=== PATIENT | male | born 1950 | race African-American/Black ===

== ENCOUNTER 2016-05-06 14:27 | Emergency (ER) | payer MEDICARE, OTHER ==
[~2016-05-06] VITALS: Ht 170.2 cm; Wt 70.0 kg
[~2016-05-06 14:27] MED LIST: ALPR2TAB3 GTB; CLON-379 GTB; GABA800T GTB; HYDR-3671 GTB; HYDR-762 GTB; LEVO500T72 GTB; ONDA4TAB95 GTB; PANT40TA4 GTB; TIOT18CA INHALATION; ZOLP5TAB PO
[2016-05-06 14:36] VITALS: Ht 170.2 cm; Wt 70.0 kg
[2016-05-06] MEDS ORDERED: SOD CHLORIDE 0.9% 1,000 ML IV STA (16:26)
--- NOTE | 2016-05-06 17:12 | RADRPT ---
PROCEDURE: XR Chest. CLINICAL INDICATION: Abdominal pain. TECHNIQUE: Single frontal radiograph. COMPARISON: 02/15/2016. FINDINGS: There are multiple old right-sided rib fractures. There is generalized volume loss with pleural thi ckening and diffuse nonspecific interstitial opacities. Right lung is clear. Heart size is within normal limits. There are aortic calcifications. No infradiaphragmatic free air. IMPRESSION: Generalized atelectasis of the right hemithorax with diffuse lower lobe predominant interstitial opa cities and ipsilateral pleural thickening. Left lung is clear. Multiple old right-sided rib fractures RPTAT: EE .Benigno Ferrell MD, MD Date Time Electronically viewed and signed by .Benigno Ferrell MD, MD on 05/06/2016 17:16 .C/
[2016-05-06 17:23] LABS: BASOPHILS % 0.2 % (0.0-2.0); EOSINOPHILS # 0.1 10^3/ul (0.0-0.5); EOSINOPHILS % 0.7 % (0.0-7.0); HEMOGLOBIN 9.6 g/dl (14.0-18.0); LYMPHOCYTES # 0.8 10^3/ul (0.8-2.9); LYMPHOCYTES % 5.7 % (15.0-51.0); MEAN CORPUSCULAR HEMOGLOBIN 23.5 pg (29.0-33.0); MEAN CORPUSCULAR HGB CONC 31.1 g/dl (32.0-37.0); MEAN CORPUSCULAR VOLUME 75.5 fl (82.0-101.0); MEAN PLATELET VOLUME 8.4 fl (7.4-10.4); MONOCYTE # 1.1 10^3/ul (0.3-0.9); MONOCYTES % 8.5 % (0.0-11.0); NEUTROPHIL # 11.5 10^3/ul (1.6-7.5); NEUTROPHILS % 84.9 % (39.0-77.0); PLATELET COUNT 268 10^3/UL (140-440); RED BLOOD COUNT 4.11 10^6/ul (4.70-6.10); UNCORRECTED WBC 13.5 10^3/ul (4.8-10.8); WHITE BLOOD COUNT 13.5 10^3/ul (4.8-10.8)
[2016-05-06 17:28] LABS: ADD UMIC NO; URINE BILIRUBIN (Dip) NEGATIVE (NEGATIVE); URINE BLOOD (Dip) NEGATIVE (NEGATIVE); URINE COLOR LT. YELLOW (YELLOW); URINE GLUCOSE (Dip) NEGATIVE (NEGATIVE); URINE KETONES (Dip) NEGATIVE (NEGATIVE); URINE LEUKOCYTE ESTERASE (Dip) NEGATIVE (NEGATIVE); URINE NITRITE (Dip) NEGATIVE (NEGATIVE); URINE TOTAL PROTEIN (Dip) NEGATIVE (NEGATIVE); URINE UROBILINOGEN (Dip) 0.2 E.U./dL (0.1-1.0)
[2016-05-06 17:41] LABS: CONDITION 1; LH ANALYZER COMMENTS 1
[2016-05-06 17:42] LABS: ALBUMIN 3.4 g/dl (3.3-4.9)
[2016-05-06 17:44] LABS: CREATININE 0.85 mg/dl (0.61-1.24)
[2016-05-06 17:45] LABS: ALBUMIN/GLOBULIN RATIO 0.91; BILIRUBIN,INDIRECT 0.3 mg/dl (0-1.1); BILIRUBIN,TOTAL 0.3 mg/dl (0.2-1.3); CALCIUM 8.7 mg/dl (8.4-10.2); TOTAL PROTEIN 7.1 g/dl (6.1-8.1)
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
[2016-05-06 19:29] VITALS: BP 148/75; PULSE 99; RESP 18; TEMP 98
== END 2016-05-06 21:25 | disposition home or self-care (01) ==
LOC: E/R 14:27
DX: J95.09 Other tracheostomy complication (principal); R53.1 Weakness; J44.9 Chronic obstructive pulmonary disease, unspecified; Z87.891 Personal history of nicotine dependence
CPT/HCPCS: 71010; 80053; 81003; 85025; J7030

== ENCOUNTER 2016-05-13 16:51 | Emergency (ER) | payer MEDICARE, OTHER ==
[~2016-05-13] VITALS: Wt 79.0 kg
[2016-05-13 16:55] VITALS: Wt 79.0 kg
[2016-05-13] MEDS ORDERED: LIDOCAINE 2% JELLY 30 ML TOP STA (18:06)
--- NOTE | 2016-05-13 19:01 | RADRPT ---
PROCEDURE: XR Chest. CLINICAL INDICATION: Tracheostomy tube placement. TECHNIQUE: Single frontal view of the chest was obtained COMPARISON: None FINDINGS: Tracheostomy tube at the midline, new over interval. Cardiomegaly. Right lung air fibrotic changes with pleural effusion and pleural thickening, without significant change booth attendant interval. Left lung remains clear. There is no pneumothorax. New radiopaque material over the left upper quadrant. IMPRESSION: 1. New tracheostomy tube at the midline. 2. Cardiomegaly, and no significant change in right lung air fibrotic changes, with pleural thicken ing and pleural effusion. RPTAT: [facility] Physician Bella Date Time Electronically viewed and signed by Physician Bella on 05/13/2016 19:00 RS/
--- NOTE | 2016-05-13 19:38 | ERD ---
ER Documentation Chief Complaint Date/Time DATE: 05/13/16 TIME: 19:32 Chief Complaint TRACH FELL OUT SENT FOR REINSERTION HPI This 65-year-old male is brought in by his daughter for a tracheostomy reinsertion is been out for 3 days. Patient is having extra secretions and through the trach there is suctionable but not so much with the trach. He denies any other acute symptoms and denies shortness of breath, fevers chills or new cough. ROS All systems reviewed and are negative except as per history of present illness. Medications Home Meds Active Scripts Zolpidem Tartrate (Ambien Nicolás) 5 Mg Tablet, 5 MG PO QHS Y for SLEEP for 30 Days , #30 TAB Prov:GENESIS ZHAO MD 02/20/16 Reported Medications Tiotropium [place]* (Spiriva*) 18 Mcg Cap.w.dev, 1 CAP INHALATION DAILY, #30 CAP 12/26/15 Alprazolam* (Alprazolam* ER) 2 Mg Tab.sr.24h, 2 MG GTB TID, TAB.SA 12/26/15 Ondansetron Hcl* (Ondansetron Hcl*) 4 Mg Tablet, 4 MG GTB DAILY Y for NAUSEA AND OR VOMITING, TAB 12/26/15 Hydralazine Hcl* (Hydralazine Hcl*) 25 Mg Tab, 25 MG GTB Q6 Y for PRN, #120 TAB 12/26/15 Pantoprazole* (Pantoprazole*) 40 Mg Tablet.dr, 40 MG GTB DAILY, TAB 12/26/15 Clonidine Hcl* (Clonidine Hcl*) 0.1 Mg Tab, 0.1 MG GTB DAILY, TAB 12/26/15 Hydrocodone Bit-Acetaminophen* ([place]*) 10-325 Mg Tablet, 1 TAB GTB Q8 Y for PAIN, TAB 06/16/15 Gabapentin* (Neurontin*) 800 Mg Tablet, 800 MG GTB TID, TAB 02/09/15 Discontinued Scripts Levofloxacin* (Levaquin*) 500 Mg Tablet, 500 MG GTB DAILY for 3 Days, TAB Prov:GENESIS ZHAO MD 02/20/16 Allergies Allergies: Coded Allergies: No Known Drug Allergies (Verified Allergy, Unknown, 12/26/15) PMhx/Soc History of Surgery: Yes (lung, abdominal, R ankle angel placement) Anesthesia Reaction: No Hx Neurological Disorder: No Hx Respiratory Disorders: Yes (COPd) Hx Cardiac Disorders: No Hx Psychiatric Problems: No Hx Miscellaneous Medical Probl: Yes (pls see EMR) Hx Alcohol Use: Yes Hx Substance Use: No Hx Tobacco Use: Yes Smoking Status: Former smoker Physical Exam Vitals Vital Signs Date Time Temp Pulse Resp B/P Pulse Ox O2 Delivery O2 Flow Rate FiO2 05/13/16 19:28 21 05/13/16 16:55 98.0 117 18 145/74 93 Physical Exam Const: [] No distress Eyes: Normal Conjunctiva ENT: Normal External Ears, Nose and Mouth. Neck: Full range of motion..~Tracheostomy stoma apparently patent with no surrounding signs of infection. Resp: Clear to auscultation bilaterally Cardio: Regular rate and rhythm, no murmurs Ext: No cyanosis, or edema Neur: Awake and alert and oriented 3, no focal deficits Psych: Normal Mood and Affect Results 24 hrs Current Medications Medications (Trade) Dose Ordered Sig/Jacquelyn Route PRN Reason Start Time Stop Time Status Last Admin Dose Admin Lidocaine (Xylocaine) 1 applic TID STAT TOP 05/13/16 18:06 05/13/16 18:07 DC Procedures/MDM Tracheostomy and insertion of the closing stoma. Insertion was easy and proceeded with no complications. Patient was then deep suction through his stoma site. Chest x-ray was performed to confirm placement and showed no acute changes in his parenchymal tissue. First the patient had refused the tracheostomy was not going to put it in. I then spoke with Dr. Tony Jean-Baptiste who says that he changes his mind constantly. He went back to the room in asked the patient if he would allow us to change it and he said that he would now. She was cooperative while I placed the tracheostomy. I am advising follow -up with Tere Jean-Baptiste in the next 2 days. Tracheostomy insertion note: With respiratory therapy at the bedside I inserted a Portex #7 cuffed tracheostomy tube through the previous stoma site. Lidocaine jelly was applied to the tracheostomy. Inserted smoothly with absolutely no resistance. It fit well. He was then fastened into place and the patient was deep suctioned. Patient tolerated procedure well there were no complications. No bleeding. Patient was saturating 100% after the procedure and was breathing well. Chest x-ray interpretation: Tracheostomy in place, I see no acute changes, no pneumothorax, no infiltrate, no pulmonary edema, patient's x-ray is very similar to previous x-ray, no fractures Departure Diagnosis: Primary Impression: Encounter for tracheostomy tube change Condition: Stable Patient Instructions: Tracheostomy Care Additional Instructions: Call your primary care doctor TOMORROW for an appointment during the next 1-2 days.See the doctor sooner or return here if your condition worsens before your appointment time. BARBRA CANALES DO May 13, 2016 19:38
== END 2016-05-13 19:15 | disposition home or self-care (01) ==
LOC: E/R 16:51
DX: Z43.0 Encounter for attention to tracheostomy (principal); J44.9 Chronic obstructive pulmonary disease, unspecified; Z87.891 Personal history of nicotine dependence
CPT/HCPCS: 71010

== ENCOUNTER 2016-11-21 19:37 | Emergency (ER) | payer MEDICARE, OTHER ==
[~2016-11-21] VITALS: Wt 89.5 kg
[~2016-11-21 19:37] MED LIST changes: -LEVO500T72 GTB
== END 2016-11-21 21:05 | disposition left against medical advice (07) ==
LOC: E/R 19:37
DX: Z53.21 Procedure and treatment not carried out due to patient leaving prior to being seen by health care provider (principal)

== ENCOUNTER 2017-08-17 03:09 | Inpatient (IN) | END 2017-08-21 13:33 | disposition home or self-care (01) | DRG 189 ==

== ENCOUNTER 2018-07-17 15:57 | Inpatient (IN) | payer MEDICARE, OTHER ==
[~2018-07-17] VITALS: Ht 177.8 cm; Wt 69.3 kg
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
[2018-07-17] MEDS ORDERED: ALBUTEROL 0.5% (NEB) 2.5 MG/0.5 ML AMP INH STA (16:07)
[2018-07-17] MEDS ORDERED: SOD CHLORIDE 0.9% 1,000 ML IV STA (16:07)
[2018-07-17] MEDS ORDERED: METHYLPREDNISOLONE 125 MG INJ IV STA (16:07)
[2018-07-17] MEDS ORDERED: HYDR-3980 GTB (16:55)
[2018-07-17] MEDS ORDERED: ALPR2TAB GTB (16:56)
[2018-07-17] MEDS ORDERED: GABA-528 GTB (16:56)
[2018-07-17] MEDS ORDERED: CLON-379 GTB (16:58)
[2018-07-17] MEDS ORDERED: HYDR-3671 GTB (16:58)
[2018-07-17] MEDS ORDERED: PANT40TA4 GTB (16:59)
[2018-07-17] MEDS ORDERED: PIPER-TAZO 3.375 GM IV (PMX) 100 ML IVPB ONE (17:00)
[2018-07-17] MEDS ORDERED: VANCOMYCIN 1 GM (PMX) 250 ML IVPB ONE (17:00)
[2018-07-17] MEDS ORDERED: CEFTRIAXONE 1 GM/50 ML (PMX) 50 ML IVPB ONE (17:00)
[2018-07-17] MEDS ORDERED: SOD CHLORIDE 0.9% 1,000 ML IV ONE (18:30)
[2018-07-17] MEDS ORDERED: NACL 0.9% 3 ML SYG IV SCH (19:00)
[2018-07-17] MEDS ORDERED: ONDANSETRON 4 MG INJ IV PRN (19:00)
[2018-07-17] MEDS ORDERED: NITROGLYCERIN (SL) 0.4 MG TAB SL PRN (19:00)
[2018-07-17] MEDS ORDERED: hydrALAzine 20 MG INJ IV PRN (19:00)
[2018-07-17] MEDS ORDERED: ALBUTEROL/IPRATROPIUM (NEB) 3 ML AMP HHN PRN (19:00)
[2018-07-17] MEDS ORDERED: DOCUSATE SODIUM 100 MG CAP PO PRN (19:00)
[2018-07-17] MEDS ORDERED: MAGNESIUM HYDROXIDE 30ML CUP PO PRN (19:00)
[2018-07-17] MEDS ORDERED: ACETAMINOPHEN 325 MG TAB PO PRN (19:00)
[2018-07-17] MEDS ORDERED: HYDROCODONE/APAP (5/325) TAB PO PRN (19:00)
[2018-07-17] MEDS ORDERED: VANCOMYCIN IV PER PHARMACY XX SCH (19:00)
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
[2018-07-17 21:30] VITALS: BP 99/57; PULSE 95; RESP 22
[2018-07-17 22:00] VITALS: BP 140/77; RESP 28
[2018-07-17 22:30] VITALS: BP 124/67; RESP 27
[2018-07-17] MEDS ORDERED: ACETYLCYSTEINE 20% 4 ML VIAL NEB PRN (23:30)
[2018-07-18] VITALS (24 sets, daily range): BP systolic 99–159; BP diastolic 59–143; PULSE 67–108; RESP 13–30
[2018-07-18] MEDS: PIPER-TAZO 3.375 GM IV (PMX) 100 ML IVPB SCH ×5 (00:41→23:55)
[2018-07-18] MEDS ORDERED: PENDING SANTYL ORDER FOR WOUND CARE XX PRN (01:00)
[2018-07-18] MEDS: morphine 2 MG INJ IV PRN ×2 (01:45→05:43)
[2018-07-18] MEDS: LORAZEPAM 2 MG INJ IV PRN (01:46)
[2018-07-18] MEDS: VANCOMYCIN HCL 1.25 GM in SOD CHLORIDE 0.9% 250 ML IVPB SCH ×2 (05:43→17:41)
[2018-07-18] MEDS: PANTOPRAZOLE (EC) 40 MG TAB PO SCH (07:05)
--- NOTE | 2018-07-18 08:19 | PN ---
Date/Time of Note Date/Time of Note DATE: 07/18/18 TIME: 08:16 Assessment/Plan VTE Prophylaxis SCD applied (from Nsg): Yes Pharmacological prophylaxis: NA/contraindicated Pharm contraindication: bleeding Lines/Catheters IV Catheter Type (from Nrsg): Peripheral IV Urinary Cath still in place: No Assessment/Plan Hospital Course S: Pt had some bleeding again from trach site last night. No fevers. O: VS- see below PHYSICAL EXAMINATION: GENERAL: lying in bed, in no acute distress. HEENT: Pupils are equal, round and reactive to light. Extraocular muscles are intact. NECK: Supple, some dried blood around trach RESPIRATORY: Slightly decreased breath sounds bilaterally with some mild wheezes. CARDIOVASCULAR: S1, S2 heard, No rubs or gallops. ABDOMEN: Soft, nontender, nondistended. Normal bowel sounds. No rebound or guarding. MUSCULOSKELETAL: No lower extremity edema bilaterally. NEUROLOGIC: Unable to fully assess given the patient's lethargy at this time. ASSESSMENT AND PLAN: 67-year-old male coming in with mild hypoxia, shortness of breath, bleeding around the tracheostomy site with signs of right lower lobe pneumonia, coming here from SNF. 1. Shortness of breath and mild hypoxic- + right lower lobe infiltrate, likely pneumonia. - continue broad spectrum antibiotics. - Follow up final culture results, and recs from pulmonary consult for ventilator management. He does have a tracheostomy. - low dose IV fluids - Tylenol p.r.n. pain and fevers. - monitor bleeding from trach site - holding all anticoagulants 2. History of cystic lung disease. Again, see #1. - Continue current medications including antibiotics, DuoNeb p.r.n. 3. Chronic obstructive pulmonary disease. Again, see #1 and 2. 4. History of anemia. Hemoglobin is stable. - Continue to monitor for now. 5. History of hypertension. Blood pressure is stable. - Continue current medications including hydralazine p.r.n. 6. Deep venous thrombosis prophylaxis- SCDs. Critical care time spent today = 45 minutes. Result Diagram: 07/18/18 0516 07/18/18 0516 Results 24hrs Laboratory Tests Test 07/17/18 16:44 07/18/18 00:30 07/18/18 05:15 07/18/18 05:16 White Blood 11.1 H 6.4 # Count Red Blood Count 3.66 L 4.21 L Hemoglobin 8.7 L 9.8 L Hematocrit 29.7 L 35.4 L Mean Corpuscular 81.1 L 84.1 Volume Mean Corpuscular 23.8 L 23.3 L Hemoglobin Mean Corpuscular 29.3 L 27.7 L Hemoglobin Roseann nt Red Cell 16.8 H 17.0 H Distribution Width Platelet Count 358 # 309 Mean Platelet 10.0 10.4 Volume Immature 0.600 H 0.500 H Granulocytes % Neutrophils % 79.3 H 91.0 H Lymphocytes % 7.5 L 7.8 L Monocytes % 11.2 H 0.5 Eosinophils % 1.0 0.0 Basophils % 0.4 0.2 Nucleated Red 0.0 0.0 Blood Cells % Immature 0.070 H 0.030 Granulocytes # Neutrophils # 8.8 H 5.9 Lymphocytes # 0.8 0.5 L Monocytes # 1.2 H 0.0 L Eosinophils # 0.1 0.0 Basophils # 0.0 0.0 Nucleated Red 0.0 0.0 Blood Cells # Sodium Level 143 144 Potassium Level 4.8 4.9 Chloride Level 101 107 Carbon Dioxide 31 24 Level Anion Gap 11 13 Blood Urea 17 14 Nitrogen Creatinine 1.01 0.78 Est Glomerular > 60 > 60 Filtrat Rate mL/min Glucose Level 167 182 Calcium Level 9.1 9.1 Troponin I 0.012 Free Thyroxine 1.32 Blood Gas Blood arterial Specimen Source Arterial Blood 07/18/2018 12:25 Date Drawn :38 AM Arterial Blood 7.277 *L pH (Temp corrected) Arterial Blood 61.3 H pCO2 (Temp correct) Arterial Blood 89.2 pO2 (Temp corrected) Arterial Blood 28.0 H HCO3 Arterial Blood 0.5 Base Excess Arterial Blood 95.2 Oxygen Saturatio n Ravindra Test ACCEPTAB Arterial Blood Left Radial Gas Puncture Site Arterial 0.4 Blood Carboxyhem oglobin Arterial Blood 0.3 Methemoglobin Blood Gas A-a O2 271.2 H Differential Oxyhemoglobin 94.5 Percent Blood Gas 37.0 Temperature Blood Gas TRACH COLLAR Modality FiO2 60.0 Blood Gas CMORALES RN Critical Value Read Back Blood Gas NOE Notified Whom Blood Gas 07/18/2018 12:30 Notified Time :13 AM Hemoglobin A1c 5.6 Triglycerides 99 Level Cholesterol 162 Level LDL Cholesterol, 87 Calculated HDL Cholesterol 55 Cholesterol/HDL 2.9 Ratio Thyroid 0.410 L Stimulating Hormone (TSH) Phosphorus Level 4.2 Magnesium Level 2.0 Test 07/18/18 06:30 Blood Gas Blood arterial Specimen Source Arterial Blood 07/18/2018 6:30: Date Drawn 12 AM Arterial Blood 7.308 L pH (Temp corrected) Arterial Blood 58.5 H pCO2 (Temp correct) Arterial Blood 104.9 H pO2 (Temp corrected) Arterial Blood 28.7 H HCO3 Arterial Blood 1.7 Base Excess Arterial Blood 97.7 Oxygen Saturatio n Ravindra Test ACCEPTAB Arterial Blood Left Radial Gas Puncture Site Arterial 0.6 Blood Carboxyhem oglobin Arterial Blood 0.4 Methemoglobin Blood Gas A-a O2 25.7 H Differential Oxyhemoglobin 96.7 Percent Blood Gas 37.0 Temperature Blood Gas Actual 22 Respiration Rate Blood Gas TRACH COLLAR Modality FiO2 28.0 Blood Gas MA Notified Whom Blood Gas 07/18/2018 6:42: Notified Time 01 AM Exam/Review of Systems Exam Vitals Vital Signs Date Temp Pulse Resp B/P (MAP) Pulse Ox O2 O2 Flow FiO2 Time Delivery Rate 07/18/18 100 06:46 07/18/18 79 21 127/84 Trach 06:00 (98) Collar 07/18/18 98.0 04:00 07/18/18 5.0 28 02:29 Intake and Output 07/17/18 07/17/18 07/18/18 1515:00 23:00 07:00 IntakeIntake Total 200 ml OutputOutput Total 25 ml BalanceBalance 175 ml Results Results 24hrs Laboratory Tests Test 07/17/18 16:44 07/18/18 00:30 07/18/18 05:15 07/18/18 05:16 White Blood 11.1 H 6.4 # Count Red Blood Count 3.66 L 4.21 L Hemoglobin 8.7 L 9.8 L Hematocrit 29.7 L 35.4 L Mean Corpuscular 81.1 L 84.1 Volume Mean Corpuscular 23.8 L 23.3 L Hemoglobin Mean Corpuscular 29.3 L 27.7 L Hemoglobin Roseann nt Red Cell 16.8 H 17.0 H Distribution Width Platelet Count 358 # 309 Mean Platelet 10.0 10.4 Volume Immature 0.600 H 0.500 H Granulocytes % Neutrophils % 79.3 H 91.0 H Lymphocytes % 7.5 L 7.8 L Monocytes % 11.2 H 0.5 Eosinophils % 1.0 0.0 Basophils % 0.4 0.2 Nucleated Red 0.0 0.0 Blood Cells % Immature 0.070 H 0.030 Granulocytes # Neutrophils # 8.8 H 5.9 Lymphocytes # 0.8 0.5 L Monocytes # 1.2 H 0.0 L Eosinophils # 0.1 0.0 Basophils # 0.0 0.0 Nucleated Red 0.0 0.0 Blood Cells # Sodium Level 143 144 Potassium Level 4.8 4.9 Chloride Level 101 107 Carbon Dioxide 31 24 Level Anion Gap 11 13 Blood Urea 17 14 Nitrogen Creatinine 1.01 0.78 Est Glomerular > 60 > 60 Filtrat Rate mL/min Glucose Level 167 182 Calcium Level 9.1 9.1 Troponin I 0.012 Free Thyroxine 1.32 Blood Gas Blood arterial Specimen Source Arterial Blood 07/18/2018 12:25 Date Drawn :38 AM Arterial Blood 7.277 *L pH (Temp corrected) Arterial Blood 61.3 H pCO2 (Temp correct) Arterial Blood 89.2 pO2 (Temp corrected) Arterial Blood 28.0 H HCO3 Arterial Blood 0.5 Base Excess Arterial Blood 95.2 Oxygen Saturatio n Ravindra Test ACCEPTAB Arterial Blood Left Radial Gas Puncture Site Arterial 0.4 Blood Carboxyhem oglobin Arterial Blood 0.3 Methemoglobin Blood Gas A-a O2 271.2 H Differential Oxyhemoglobin 94.5 Percent Blood Gas 37.0 Temperature Blood Gas TRACH COLLAR Modality FiO2 60.0 Blood Gas CMORALES RN Critical Value Read Back Blood Gas MA Notified Whom Blood Gas 07/18/2018 12:30 Notified Time :13 AM Hemoglobin A1c 5.6 Triglycerides 99 Level Cholesterol 162 Level LDL Cholesterol, 87 Calculated HDL Cholesterol 55 Cholesterol/HDL 2.9 Ratio Thyroid 0.410 L Stimulating Hormone (TSH) Phosphorus Level 4.2 Magnesium Level 2.0 Test 07/18/18 06:30 Blood Gas Blood arterial Specimen Source Arterial Blood 07/18/2018 6:30: Date Drawn 12 AM Arterial Blood 7.308 L pH (Temp corrected) Arterial Blood 58.5 H pCO2 (Temp correct) Arterial Blood 104.9 H pO2 (Temp corrected) Arterial Blood 28.7 H HCO3 Arterial Blood 1.7 Base Excess Arterial Blood 97.7 Oxygen Saturatio n Ravindra Test ACCEPTAB Arterial Blood Left Radial Gas Puncture Site Arterial 0.6 Blood Carboxyhem oglobin Arterial Blood 0.4 Methemoglobin Blood Gas A-a O2 25.7 H Differential Oxyhemoglobin 96.7 Percent Blood Gas 37.0 Temperature Blood Gas Actual 22 Respiration Rate Blood Gas TRACH COLLAR Modality FiO2 28.0 Blood Gas PA Notified Whom Blood Gas 07/18/2018 6:42: Notified Time 01 AM Medications Medication Current Medications IV Flush (NS 3 ml) 3 ml PER PROTOCOL IV ; Start 07/17/18 at 19:00 Ondansetron HCl (Zofran Inj) 4 mg Q6H PRN IV NAUSEA/VOMITING; Start 07/17/18 at 19:00 Acetaminophen (Tylenol Tab) 650 mg Q6H PRN PO .PAIN 1-3 OR TEMP; Start 07/17/18 at 19:00 Acetaminophen/ Hydrocodone Bitart ([place]ico (5/325)) 1 tab Q6H PRN PO .MOD PAIN 4- 6 Last administered on 07/17/18at 21:18; Admin Dose 1 TAB; Start 07/17/18 at 19:00 Morphine Sulfate (morphine) 2 mg Q4H PRN IV .SEVERE PAIN 7-10 Last administered on 07/18/18at 05:43; Admin Dose 2 MG; Start 07/17/18 at 19:00 Docusate Sodium (Colace) 100 mg Q12H PRN PO .CONSTIPATION; Start 07/17/18 at 19:00 Magnesium Hydroxide (Milk Of Mag) 30 ml DAILY PRN PO .CONSTIPATION; Start 07/17/18 at 19:00 Lorazepam (Ativan) 0.5 mg Q6H PRN IV ANXIETY Last administered on 07/18/18at 01:46; Admin Dose 0.5 MG; Start 07/17/18 at 19:00 Albuterol/ Ipratropium (Duoneb) 3 ml Q4H RESP THERAPY PRN HHN SHORTNESS OF BREATH; Start 07/17/18 at 19:00 Piperacillin Sod/ Tazobactam Sod 100 ml @ 200 mls/hr Q6 IVPB Last administered on 07/18/18at 05:05; Admin Dose 200 MLS/HR; Start 07/18/18 at 00:00 Vancomycin HCl (Vanco Iv Per Pharmacy) VANCOMYCIN PER PHARMACY NOTE XX ; Start 07/17/18 at 19:00 Hydralazine HCl (Apresoline) 10 mg Q6H PRN IV ELEVATED BLOOD PRESSURE; Start 07/17/18 at 19:00 Nitroglycerin (Nitroglycerin (Sl Tab) 0.4 Mg) 1 tab Q5M PRN SL ANGINA; Start 07/17/18 at 19:00 Hydralazine HCl (Apresoline) 25 mg Q8H PRN GTB ELEVATED BLOOD PRESSURE; Start 07/17/18 at 19:00 Pantoprazole (Protonix Tab) 40 mg AC BREAKFAST PO ; Start 07/18/18 at 07:00 Vancomycin HCl 1.25 gm/Sodium Chloride 250 ml @ 83.333 mls/ hr Q12H IVPB Last administered on 07/18/18at 05:43; Admin Dose 83.333 MLS/HR; Start 07/18/18 at 06:00 Acetylcysteine (Mucomyst) 2 ml Q4H RESP THERAPY PRN NEB THICK SECRETIONS; Start 07/17/18 at 23:30 [facility]isc[facility] 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 PRN PRN XX WOUND CARE; Start 07/18/18 at 01:00 TRINA GARNER Jul 18, 2018 08:19
--- NOTE | 2018-07-18 14:07 | CONS ---
DATE OF ADMISSION: 07/17/2018 DATE OF CONSULTATION: 07/18/2018 TYPE OF CONSULTATION: Pulmonary. REASON FOR CONSULT: Hemoptysis, respiratory failure. Thank you, Dr. Garner, for this consultation. HISTORY OF PRESENT ILLNESS: This is a 67-year-old gentleman with a history of COPD, tracheostomy, mu ltiple cavitary lesions with recurrent hemoptysis. Seen by myself multiple times in the past, both h [facility] and at [facility], presents with several-day history of increasing shortness of b reath, orthopnea, and PND and transient hemoptysis. Yesterday, transferred to intensive care unit fo r closer monitoring. This morning he has decreased bloody secretions, remains awake and alert and or iented. Etiology of bloody secretions, most likely progressive cavitary disease and in the past we h ad discussed possible embolization with interventional radiology. However, possible complication of embolization procedure was damage to spinal arteries which could result in paraplegia. Therefore, no langston and his daughter had previously declined catheter embolization of spinal artery. Currently, no langston remains stable. Denies any significant respiratory distress. Appears at his baseline status. PAST MEDICAL HISTORY: As above. SYSTEMS REVIEW: A 12-point review of systems was negative other than above. SOCIAL HISTORY: He is an ex-smoker, no alcohol, no history of drug use. FAMILY HISTORY: Noncontributory. REVIEW OF SYSTEMS: A 12-point review of systems negative that mentioned above. PHYSICAL EXAMINATION: GENERAL: Well-nourished, well-developed gentleman, comfortable at rest, no acute distress. VITAL SIGNS: Currently afebrile, pulse is 90, blood pressure 121/59, O2 saturation 100% on trach col lar. NECK: Supple. No JVD or lymphadenopathy. CARDIAC: S1, S2, no added sounds or murmurs. CHEST: Diminished air entry bilaterally. ABDOMEN: Soft, nontender. No guarding or rebound. EXTREMITIES: No cyanosis, clubbing, edema. NEUROLOGIC: Grossly intact. No focal deficits. LABORATORY DATA: White count 6.4, hemoglobin 9.8, platelets 309. BUN 14, creatinine 0.78. Arterial blood gas pH 7.3, pCO2 of 58, pO2 of 104. DIAGNOSTIC DATA: Chest x-ray was reviewed, showed cystic area in the right upper lobe. IMPRESSION AND PLAN: 1. Chronic respiratory failure with tracheostomy. 2. Cystic lung disease with intermittent hemoptysis. 3. Prior history of tobacco use. RECOMMENDATIONS: 1. Continue pulmonary toilet. 2. Ice lavage. 3. Antibiotics. 4. Likely can be transferred back to nursing home facility in the next 24 to 48 hours if no furth er hemoptysis and breathing stabilizes. Dictated By: VAUGHN EDMONDS/MARIA GUADALUPE Conf#: [id number] DID#: [id number] CC: TRINA GARNER;*EndCC*
[2018-07-18] MEDS: BALSAM PERU/CASTOR OIL 60 GM TUBE TOP SCH (21:00)
[2018-07-19] VITALS (13 sets, daily range): BP systolic 150–186; BP diastolic 60–95; PULSE 78–118; RESP 16–20
[2018-07-19] MEDS: PIPER-TAZO 3.375 GM IV (PMX) 100 ML IVPB SCH ×3 (05:18→17:40)
[2018-07-19] MEDS: PANTOPRAZOLE (EC) 40 MG TAB PO SCH (06:22)
[2018-07-19] MEDS: VANCOMYCIN HCL 1.25 GM in SOD CHLORIDE 0.9% 250 ML IVPB SCH ×2 (06:22→18:00)
[2018-07-19] MEDS: BALSAM PERU/CASTOR OIL 60 GM TUBE TOP SCH ×2 (09:06→21:46)
--- NOTE | 2018-07-19 10:38 | CONS ---
Assessment/Plan Assessment/Plan Assessment/Plan (Daily) Assessment and recommendations; 1. Patient with history of chronic respiratory failure maintained on T-piece admitted for recurrent pneumonia involving right lung, currently on appropriate antimicrobial regimen. 2. History of prior multiple episodes of hemoptysis without any further recurrence. 3. Anemia. 4. Mild chronic type II respiratory failure. Continue with supportive care. Consultation Date/Type/Reason Admit Date/Time Jul 17, 2018 at 17:54 Initial Consult Date Type of Consult Pulmonary Reason for Consultation Patient's condition is stable. Complains of chest congestion and sputum pr oduction. Denies any hemoptysis. General exam; elderly male, on T-piece via tracheostomy, awake and alert. Currently in no distress. Date/Time of Note DATE: 07/19/18 TIME: 10:36 Exam/Review of Systems Exam Vitals Vital Signs Date Temp Pulse Resp B/P (MAP) Pulse Ox O2 O2 Flow FiO2 Time Delivery Rate 07/19/18 88 08:15 07/19/18 97.4 16 153/73 97 07:46 (99) 07/19/18 Aerosol 5.0 28 07:15 T Tube Intake and Output 07/18/18 07/18/18 07/19/18 1515:00 23:00 07:00 IntakeIntake Total 350 ml 350 ml 30 ml OutputOutput Total 200 ml 1000 ml BalanceBalance 350 ml 150 ml -970 ml Exam H EENT exam; supple neck, no JVD. No lymphadenopathy. Midline trachea. No thyromegaly. Tracheostomy in place. Patient is edentulous. Chest exam; diminished breath sounds right lung. Left lung is fairly clear. S1-S2 audible, no murmurs. Regular rhythm. Abdomen exam; soft, well-healed epigastric scar. No organomegaly. Nontender. Bowel sounds audible. Extremity exam; no peripheral edema. COLLECTION SPECIALIST exam; patient has no focal motor deficit. Results Result Diagram: 07/19/18 0516 07/19/18 0516 Results 24hrs Laboratory Tests Test 07/19/18 05:16 White Blood Count 8.1 # Red Blood Count 4.17 L Hemoglobin 9.8 L Hematocrit 34.0 L Mean Corpuscular Volume 81.5 L Mean Corpuscular Hemoglobin 23.5 L Mean Corpuscular Hemoglobin Concent 28.8 L Red Cell Distribution Width 16.6 H Platelet Count 322 Mean Platelet Volume 10.8 H Immature Granulocytes % 0.400 Neutrophils % 79.0 H Lymphocytes % 11.5 L Monocytes % 8.6 Eosinophils % 0.4 Basophils % 0.1 Nucleated Red Blood Cells % 0.0 Immature Granulocytes # 0.030 Neutrophils # 6.4 Lymphocytes # 0.9 Monocytes # 0.7 Eosinophils # 0.0 Basophils # 0.0 Nucleated Red Blood Cells # 0.0 Sodium Level 144 Potassium Level 5.1 Chloride Level 109 Carbon Dioxide Level 27 Anion Gap 8 Blood Urea Nitrogen 17 Creatinine 0.76 Est Glomerular Filtrat Rate mL/min > 60 Glucose Level 85 # Calcium Level 9.3 Medications Medication Current Medications IV Flush (NS 3 ml) 3 ml PER PROTOCOL IV ; Start 07/17/18 at 19:00 Ondansetron HCl (Zofran Inj) 4 mg Q6H PRN IV NAUSEA/VOMITING; Start 07/17/18 at 19:00 Acetaminophen (Tylenol Tab) 650 mg Q6H PRN PO .PAIN 1-3 OR TEMP; Start 07/17/18 at 19:00 Acetaminophen/ Hydrocodone Bitart (Randolph (5/325)) 1 tab Q6H PRN PO .MOD PAIN 4- 6 Last administered on 07/17/18at 21:18; Admin Dose 1 TAB; Start 07/17/18 at 19:00 Morphine Sulfate (morphine) 2 mg Q4H PRN IV .SEVERE PAIN 7-10 Last administered on 07/18/18at 05:43; Admin Dose 2 MG; Start 07/17/18 at 19:00 Docusate Sodium (Colace) 100 mg Q12H PRN PO .CONSTIPATION; Start 07/17/18 at 19:00 Magnesium Hydroxide (Milk Of Mag) 30 ml DAILY PRN PO .CONSTIPATION; Start 07/17/18 at 19:00 Lorazepam (Ativan) 0.5 mg Q6H PRN IV ANXIETY Last administered on 07/18/18 01:46; Admin Dose 0.5 MG; Start 07/17/18 at 19:00 Albuterol/ Ipratropium (Duoneb) 3 ml Q4H RESP THERAPY PRN HHN SHORTNESS OF BREATH; Start 07/17/18 at 19:00 Piperacillin Sod/ Tazobactam Sod 100 ml @ 200 mls/hr Q6 IVPB Last administered on 07/19/18at 05:18; Admin Dose 200 MLS/HR; Start 07/18/18 at 00:00 Vancomycin HCl (Vanco Iv Per Pharmacy) VANCOMYCIN PER PHARMACY NOTE XX ; Start 07/17/18 at 19:00 Hydralazine HCl (Apresoline) 10 mg Q6H PRN IV ELEVATED BLOOD PRESSURE; Start 07/17/18 at 19:00 Nitroglycerin (Nitroglycerin (Sl Tab) 0.4 Mg) 1 tab Q5M PRN SL ANGINA; Start 07/17/18 at 19:00 Hydralazine HCl (Apresoline) 25 mg Q8H PRN GTB ELEVATED BLOOD PRESSURE; Start 07/17/18 at 19:00 Pantoprazole (Protonix Tab) 40 mg AC BREAKFAST PO Last administered on 07/19/18at 06:22; Admin Dose 40 MG; Start 07/18/18 at 07:00 Vancomycin HCl 1.25 gm/Sodium Chloride 250 ml @ 83.333 mls/ hr Q12H IVPB Last administered on 07/19/18at 06:22; Admin Dose 83.333 MLS/HR; Start 07/18/18 at 06:00 Acetylcysteine (Mucomyst) 2 ml Q4H RESP THERAPY PRN NEB THICK SECRETIONS; Start 07/17/18 at 23:30 Miscellaneous Information (Pending Santyl Order For Wound Care) 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 PRN PRN XX WOUND CARE; Start 07/18/18 at 01:00 Miscellaneous Information (*Rx Drug Level Order Reminder*) VANCO TROUGH @ 1,700 ON... 1700 ONCE XX ; Start 07/19/18 at 17:00; Stop 07/19/18 at 17:01 CRISTINA MORRIS Jul 19, 2018 10:38
--- NOTE | 2018-07-19 11:42 | PN ---
Date/Time of Note Date/Time of Note DATE: 07/19/18 TIME: 11:37 Assessment/Plan VTE Prophylaxis Risk score (from Ns)>0 risk: 5 SCD applied (from [facility] [place]): Yes Pharmacological prophylaxis: NA/contraindicated Pharm contraindication: bleeding Lines/Catheters [facility]from [facility] Saline Lock Urinary Cath still in place: No Assessment/Plan Hospital Course S: Pt seen by speech therapy pulmonary team this morning, more alert today. O: VS- see below PHYSICAL EXAMINATION: GENERAL: lying in bed, in no acute distress. HEENT: Pupils are equal, round and reactive to light. Extraocular muscles are intact. NECK: Supple, some dried blood around trach RESPIRATORY: Slightly decreased breath sounds bilaterally with some mild wheezes. CARDIOVASCULAR: S1, S2 heard, No rubs or gallops. ABDOMEN: Soft, nontender, nondistended. Normal bowel sounds. No rebound or guarding. MUSCULOSKELETAL: No lower extremity edema bilaterally. NEUROLOGIC: Unable to fully assess given the patient's lethargy at this time. ASSESSMENT AND PLAN: 67-year-old male coming in with mild hypoxia, shortness of breath, bleeding around the tracheostomy site with signs of right lower lobe pneumonia, coming here from SNF. 1. Shortness of breath and mild hypoxic-slowly improving, secondary to + right lower lobe infiltrate, likely pneumonia. - continue broad spectrum antibiotics. - Follow up final culture results, and recs from pulmonary consult for ventilator management. He does have a tracheostomy. - low dose IV fluids - Tylenol p.r.n. pain and fevers. - monitor bleeding from trach site -still holding all anticoagulants 2. History of cystic lung disease. Again, see #1. - Continue current medications including antibiotics, DuoNeb p.r.n. 3. Chronic obstructive pulmonary disease. Again, see #1 and 2. 4. History of anemia. Hemoglobin is stable. - Continue to monitor for now. 5. History of hypertension. Blood pressure is stable. - Continue current medications including hydralazine p.r.n. 6. Deep venous thrombosis prophylaxis- SCDs. Dispo: Per case management, patient will need new placement to care home facility now (i.e., this is higher level of care for the patient that apparently is required now) -follow-up with case management on this. Result Diagram: 07/19/18 0516 07/19/18 0516 Results 24hrs Laboratory Tests Test 07/19/18 05:16 White Blood Count 8.1 # Red Blood Count 4.17 L Hemoglobin 9.8 L Hematocrit 34.0 L Mean Corpuscular Volume 81.5 L Mean Corpuscular Hemoglobin 23.5 L Mean Corpuscular Hemoglobin Concent 28.8 L Red Cell Distribution Width 16.6 H Platelet Count 322 Mean Platelet Volume 10.8 H Immature Granulocytes % 0.400 Neutrophils % 79.0 H Lymphocytes % 11.5 L Monocytes % 8.6 Eosinophils % 0.4 Basophils % 0.1 Nucleated Red Blood Cells % 0.0 Immature Granulocytes # 0.030 Neutrophils # 6.4 Lymphocytes # 0.9 Monocytes # 0.7 Eosinophils # 0.0 Basophils # 0.0 Nucleated Red Blood Cells # 0.0 Sodium Level 144 Potassium Level 5.1 Chloride Level 109 Carbon Dioxide Level 27 Anion Gap 8 Blood Urea Nitrogen 17 Creatinine 0.76 Est Glomerular Filtrat Rate mL/min > 60 Glucose Level 85 # Calcium Level 9.3 Exam/Review of Systems Exam Vitals Vital Signs Date Temp Pulse Resp B/P (MAP) Pulse Ox O2 O2 Flow FiO2 Time Delivery Rate 07/19/18 97.9 92 16 162/60 99 11:17 (94) 07/19/18 5.0 08:00 07/19/18 Aerosol 28 07:15 T Tube Intake and Output 07/18/18 07/18/18 07/19/18 1515:00 23:00 07:00 IntakeIntake Total 350 ml 350 ml 30 ml OutputOutput Total 200 ml 1000 ml BalanceBalance 350 ml 150 ml -970 ml Results Results 24hrs Laboratory Tests Test 07/19/18 05:16 White Blood Count 8.1 # Red Blood Count 4.17 L Hemoglobin 9.8 L Hematocrit 34.0 L Mean Corpuscular Volume 81.5 L Mean Corpuscular Hemoglobin 23.5 L Mean Corpuscular Hemoglobin Concent 28.8 L Red Cell Distribution Width 16.6 H Platelet Count 322 Mean Platelet Volume 10.8 H Immature Granulocytes % 0.400 Neutrophils % 79.0 H Lymphocytes % 11.5 L Monocytes % 8.6 Eosinophils % 0.4 Basophils % 0.1 Nucleated Red Blood Cells % 0.0 Immature Granulocytes # 0.030 Neutrophils # 6.4 Lymphocytes # 0.9 Monocytes # 0.7 Eosinophils # 0.0 Basophils # 0.0 Nucleated Red Blood Cells # 0.0 Sodium Level 144 Potassium Level 5.1 Chloride Level 109 Carbon Dioxide Level 27 Anion Gap 8 Blood Urea Nitrogen 17 Creatinine 0.76 Est Glomerular Filtrat Rate mL/min > 60 Glucose Level 85 # Calcium Level 9.3 Medications Medication Current Medications IV Flush (NS 3 ml) 3 ml PER PROTOCOL IV ; Start 07/17/18 at 19:00 Ondansetron HCl (Zofran Inj) 4 mg Q6H PRN IV NAUSEA/VOMITING; Start 07/17/18 at 19:00 Acetaminophen (Tylenol Tab) 650 mg Q6H PRN PO .PAIN 1-3 OR TEMP; Start 07/17/18 at 19:00 Acetaminophen/ Hydrocodone Bitart ([place] (5/325)) 1 tab Q6H PRN PO .MOD PAIN 4- 6 Last administered on 07/17/18at 21:18; Admin Dose 1 TAB; Start 07/17/18 at 19:00 Morphine Sulfate (morphine) 2 mg Q4H PRN IV .SEVERE PAIN 7-10 Last administered on 07/18/18at 05:43; Admin Dose 2 MG; Start 07/17/18 at 19:00 Docusate Sodium (Colace) 100 mg Q12H PRN PO .CONSTIPATION; Start 07/17/18 at 19:00 Magnesium Hydroxide (Milk Of Mag) 30 ml DAILY PRN PO .CONSTIPATION; Start 07/17/18 at 19:00 Lorazepam (Ativan) 0.5 mg Q6H PRN IV ANXIETY Last administered on 07/18/18at 01:46; Admin Dose 0.5 MG; Start 07/17/18 at 19:00 Albuterol/ Ipratropium (Duoneb) 3 ml Q4H RESP THERAPY PRN HHN SHORTNESS OF BREATH; Start 07/17/18 at 19:00 Piperacillin Sod/ Tazobactam Sod 100 ml @ 200 mls/hr Q6 IVPB Last administered on 07/19/18at 05:18; Admin Dose 200 MLS/HR; Start 07/18/18 at 00:00 Vancomycin HCl (Vanco Iv Per Pharmacy) VANCOMYCIN PER PHARMACY NOTE XX ; Start 07/17/18 at 19:00 Hydralazine HCl (Apresoline) 10 mg Q6H PRN IV ELEVATED BLOOD PRESSURE; Start 07/17/18 at 19:00 Nitroglycerin (Nitroglycerin (Sl Tab) 0.4 Mg) 1 tab Q5M PRN SL ANGINA; Start 07/17/18 at 19:00 Hydralazine HCl (Apresoline) 25 mg Q8H PRN GTB ELEVATED BLOOD PRESSURE; Start 07/17/18 at 19:00 Pantoprazole (Protonix Tab) 40 mg AC BREAKFAST PO Last administered on 07/19/18at 06:22; Admin Dose 40 MG; Start 07/18/18 at 07:00 Vancomycin HCl 1.25 gm/Sodium Chloride 250 ml @ 83.333 mls/ hr Q12H IVPB Last administered on 07/19/18at 06:22; Admin Dose 83.333 MLS/HR; Start 07/18/18 at 06:00 Acetylcysteine (Mucomyst) 2 ml Q4H RESP THERAPY PRN NEB THICK SECRETIONS; Start 07/17/18 at 23:30 Miscellaneous Information ([facility]) 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 PRN PRN XX WOUND CARE; Start 07/18/18 at 01:00 Miscellaneous Information (*Rx Drug Level Order Reminder*) VANCO TROUGH @ 1,700 ON... 1700 ONCE XX ; Start 07/19/18 at 17:00; Stop 07/19/18 at 17:01 TRINA GARNER Jul 19, 2018 11:42
[2018-07-19] MEDS: DEXTROSE 5%-0.45% NACL 1,000 ML IV SCH (12:36)
[2018-07-19] MEDS: LORAZEPAM 2 MG INJ IV PRN (14:34)
[2018-07-19] MEDS: morphine 2 MG INJ IV PRN (23:34)
[2018-07-20] VITALS (11 sets, daily range): BP systolic 155–178; BP diastolic 83–90; PULSE 89–101; RESP 16–18
[2018-07-20] MEDS: PIPER-TAZO 3.375 GM IV (PMX) 100 ML IVPB SCH ×3 (00:21→23:40)
[2018-07-20] MEDS: DEXTROSE 5%-0.45% NACL 1,000 ML IV SCH ×2 (01:20→16:26)
[2018-07-20] MEDS: LORAZEPAM 2 MG INJ IV PRN (02:00)
[2018-07-20] MEDS ORDERED: VANCOMYCIN HCL 1.25 GM in SOD CHLORIDE 0.9% 250 ML IVPB SCH (06:00)
[2018-07-20] MEDS: PANTOPRAZOLE (EC) 40 MG TAB PO SCH (07:00)
--- NOTE | 2018-07-20 09:33 | PN ---
Date/Time of Note Date/Time of Note DATE: 07/20/18 TIME: : Assessment/Plan VTE Prophylaxis Risk score (from Ns)>0 risk: 7 SCD applied (from [facility] [place]): Yes Pharmacological prophylaxis: NA/contraindicated Pharm contraindication: bleeding Lines/Catheters IV [facility] Type (from [facility] Saline Lock Urinary Cath still in place: No Assessment/Plan Hospital Course S: Pt more alert, did not pass speech eval yesterday. Waiting for successful insertion of IV however. Seen by pulmonary team yesterday. O: VS- see below PHYSICAL EXAMINATION: GENERAL: lying in bed, in no acute distress. HEENT: Pupils are equal, round and reactive to light. Extraocular muscles are intact. NECK: Supple, some dried blood around trach RESPIRATORY: Slightly decreased breath sounds bilaterally with some mild wheezes. CARDIOVASCULAR: S1, S2 heard, No rubs or gallops. ABDOMEN: Soft, nontender, nondistended. Normal bowel sounds. No rebound or guarding. MUSCULOSKELETAL: No lower extremity edema bilaterally. NEUROLOGIC: Unable to fully assess given the patient's lethargy at this time. ASSESSMENT AND PLAN: 67-year-old male coming in with mild hypoxia, shortness of breath, bleeding around the tracheostomy site with signs of right lower lobe pneumonia, coming here from SNF. 1. Shortness of breath and mild hypoxic-slowly improving, secondary to + right lower lobe infiltrate, likely pneumonia. - continue broad spectrum antibiotics. - Follow up final culture results, and recs from pulmonary consult for ventilator management. He does have a tracheostomy. - low dose IV fluids -needs successful IV access, nursing staff will try again, may need to consider PICC placement if not able to insert IV - Tylenol p.r.n. pain and fevers. - monitor bleeding from trach site -still holding all anticoagulants 2. History of cystic lung disease. Again, see #1. - Continue current medications including antibiotics, DuoNeb p.r.n. 3. Chronic obstructive pulmonary disease. Again, see #1 and 2. 4. History of anemia. Hemoglobin is stable. - Continue to monitor for now. 5. History of hypertension. Blood pressure is stable. - Continue current medications including hydralazine p.r.n. 6. Deep venous thrombosis prophylaxis- SCDs. Dispo: Per case management, patient will need new placement to senior care facility now (i.e., this is higher level of care for the patient that apparently is required now) -follow-up with case management on this. Result Diagram: 07/19/18 0516 07/19/18 0516 Results 24hrs Laboratory Tests Test 07/19/18 17:07 Vancomycin Level Trough 24.2 *H Exam/Review of Systems Exam Vitals Vital Signs Date Temp Pulse Resp B/P (MAP) Pulse Ox O2 O2 Flow FiO2 Time Delivery Rate 07/20/18 93 08:34 07/20/18 97.6 16 162/86 100 07:43 (111) 07/20/18 5.0 28 04:55 07/20/18 Aerosol 04:55 T Tube Intake and Output 07/19/18 07/19/18 07/20/18 1515:00 23:00 07:00 IntakeIntake Total 100 ml 880 ml 700 ml OutputOutput Total 600 ml 600 ml BalanceBalance 100 ml 280 ml 100 ml Results Results 24hrs Laboratory Tests Test 07/19/18 17:07 Vancomycin Level Trough 24.2 *H Medications Medication Current Medications IV Flush (NS 3 ml) 3 ml PER PROTOCOL IV ; Start 07/17/18 at 19:00 Ondansetron HCl (Zofran Inj) 4 mg Q6H PRN IV NAUSEA/VOMITING; Start 07/17/18 at 19:00 Acetaminophen (Tylenol Tab) 650 mg Q6H PRN PO .PAIN 1-3 OR TEMP; Start 07/17/18 at 19:00 Acetaminophen/ Hydrocodone Bitart ([place] (5/325)) 1 tab Q6H PRN PO .MOD PAIN 4- 6 Last administered on 07/17/18at 21:18; Admin Dose 1 TAB; Start 07/17/18 at 19:00 Morphine Sulfate (morphine) 2 mg Q4H PRN IV .SEVERE PAIN 7-10 Last administered on 07/19/18at 23:34; Admin Dose 2 MG; Start 07/17/18 at 19:00 Docusate Sodium (Colace) 100 mg Q12H PRN PO .CONSTIPATION; Start 07/17/18 at 19:00 Magnesium Hydroxide (Milk Of Mag) 30 ml DAILY PRN PO .CONSTIPATION; Start 07/17/18 at 19:00 Lorazepam (Ativan) 0.5 mg Q6H PRN IV ANXIETY Last administered on 07/20/18at 02:00; Admin Dose 0.5 MG; Start 07/17/18 at 19:00 Albuterol/ Ipratropium (Duoneb) 3 ml Q4H RESP THERAPY PRN HHN SHORTNESS OF BREATH; Start 07/17/18 at 19:00 Piperacillin Sod/ Tazobactam Sod 100 ml @ 200 mls/hr Q6 IVPB Last administered on 07/20/18at 00:21; Admin Dose 200 MLS/HR; Start 07/18/18 at 00:00 Vancomycin HCl (Vanco Iv Per Pharmacy) VANCOMYCIN PER PHARMACY NOTE XX ; Start 07/17/18 at 19:00 Hydralazine HCl (Apresoline) 10 mg Q6H PRN IV ELEVATED BLOOD PRESSURE Last administered on 07/19/18at 21:46; Admin Dose 10 MG; Start 07/17/18 at 19:00 Nitroglycerin (Nitroglycerin (Sl Tab) 0.4 Mg) 1 tab Q5M PRN SL ANGINA; Start 07/17/18 at 19:00 Hydralazine HCl (Apresoline) 25 mg Q8H PRN GTB ELEVATED BLOOD PRESSURE; Start 07/17/18 at 19:00 Pantoprazole (Protonix Tab) 40 mg AC BREAKFAST PO Last administered on 07/19/18at 06:22; Admin Dose 40 MG; Start 07/18/18 at 07:00 Acetylcysteine (Mucomyst) 2 ml Q4H RESP THERAPY PRN NEB THICK SECRETIONS; Start 07/17/18 at 23:30 Miscellaneous Information (Pending [facility] Order For Wound Care) 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 PRN PRN XX WOUND CARE; Start 07/18/18 at 01:00 Dextrose/Sodium Chloride 1,000 ml @ 75 mls/hr [id number] IV Last administered on 07/19/18at 12:36; Admin Dose 75 MLS/HR; Start 07/19/18 at 12:00 Vancomycin HCl 1.25 gm/Sodium Chloride 250 ml @ 83.333 mls/ hr Q24H IVPB ; Sta rt 07/20/18 at 06:00 TRINA GARNER Jul 20, 2018 09:33
--- NOTE | 2018-07-20 09:53 | CONS ---
Assessment/Plan Assessment/Plan Assessment/Plan (Daily) Assessment and recommendations; 1. Patient admitted for recurrent pneumonia involving right lung currently on appropriate antimicrobial regimen. 2. Chronic respiratory failure, patient weaned down to T-piece. 3. Recurrent episodes of hemoptysis without any further recurrence. Continue current supportive care. Consultation Date/Type/Reason Admit Date/Time Jul 17, 2018 at 17:54 Initial Consult Date Type of Consult Pulmonary Date/Time of Note DATE: 07/20/18 TIME: 09:51 24 HR Interval Summary Free Text/Dictation Patient's condition is stable. Has remained hemodynamically stable. Denies any shortness of breath. Complains of chest congestion and coughing. Denies any hemoptysis. General exam; elderly male, on T-piece via tracheostomy, currently no distress. Exam/Review of Systems Exam Vitals Vital Signs Date Temp Pulse Resp B/P (MAP) Pulse Ox O2 O2 Flow FiO2 Time Delivery Rate 07/20/18 93 08:34 07/20/18 97.6 16 162/86 100 07:43 (111) 07/20/18 5.0 28 04:55 07/20/18 Aerosol 04:55 T Tube Intake and Output 07/19/18 07/19/18 07/20/18 1515:00 23:00 07:00 IntakeIntake Total 100 ml 880 ml 700 ml OutputOutput Total 600 ml 600 ml BalanceBalance 100 ml 280 ml 100 ml Exam H EENT exam; supple neck, no JVD. No lymphadenopathy. Midline trachea. No thyromegaly. Edentulous. Tracheostomy in place. Chest exam; diminished breath sounds right lung. Left lung is fairly clear. S1-S2 audible, no murmurs. Regular rhythm. Abdomen exam; soft, no organomegaly. Bowel sounds audible. Extremity exam; no peripheral edema. 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 Results Result Diagram: 07/19/18 0516 07/19/18 0516 Results 24hrs Laboratory Tests Test 07/19/18 17:07 Vancomycin Level Trough 24.2 *H Medications Medication Current Medications IV Flush (NS 3 ml) 3 ml PER PROTOCOL IV ; Start 07/17/18 at 19:00 Ondansetron HCl (Zofran Inj) 4 mg Q6H PRN IV NAUSEA/VOMITING; Start 07/17/18 at 19:00 Acetaminophen (Tylenol Tab) 650 mg Q6H PRN PO .PAIN 1-3 OR TEMP; Start 07/17/18 at 19:00 Acetaminophen/ Hydrocodone Bitart ([place] (5/325)) 1 tab Q6H PRN PO .MOD PAIN 4- 6 Last administered on 07/17/18at 21:18; Admin Dose 1 TAB; Start 07/17/18 at 19:00 Docusate Sodium (Colace) 100 mg Q12H PRN PO .CONSTIPATION; Start 07/17/18 at 19:00 Magnesium Hydroxide (Milk Of Mag) 30 ml DAILY PRN PO .CONSTIPATION; Start 07/17/18 at 19:00 Lorazepam (Ativan) 0.5 mg Q6H PRN IV ANXIETY Last administered on 07/20/18at 02 :00; Admin Dose 0.5 MG; Start 07/17/18 at 19:00 Albuterol/ Ipratropium (Duoneb) 3 ml Q4H RESP THERAPY PRN HHN SHORTNESS OF BREATH; Start 07/17/18 at 19:00 Piperacillin Sod/ Tazobactam Sod 100 ml @ 200 mls/hr Q6 IVPB Last administered on 07/20/18at 00:21; Admin Dose 200 MLS/HR; Start 07/18/18 at 00:00 Vancomycin HCl (Vanco Iv Per Pharmacy) VANCOMYCIN PER PHARMACY NOTE XX ; Start 07/17/18 at 19:00 Hydralazine HCl (Apresoline) 10 mg Q6H PRN IV ELEVATED BLOOD PRESSURE Last administered on 07/19/18at 21:46; Admin Dose 10 MG; Start 07/17/18 at 19:00 Nitroglycerin (Nitroglycerin (Sl Tab) 0.4 Mg) 1 tab Q5M PRN SL ANGINA; Start 07/17/18 at 19:00 Hydralazine HCl (Apresoline) 25 mg Q8H PRN GTB ELEVATED BLOOD PRESSURE; Start 07/17/18 at 19:00 Pantoprazole (Protonix Tab) 40 mg AC BREAKFAST PO Last administered on 07/19/18at 06:22; Admin Dose 40 MG; Start 07/18/18 at 07:00 Acetylcysteine (Mucomyst) 2 ml Q4H RESP THERAPY PRN NEB THICK SECRETIONS; Start 07/17/18 at 23:30 Miscellaneous Information (Pending [facility] Order For Wound Care) 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 PRN PRN XX WOUND CARE; Start 07/18/18 at 01:00 Dextrose/Sodium Chloride 1,000 ml @ 75 mls/hr [id number] IV Last administered on 07/19/18at 12:36; Admin Dose 75 MLS/HR; Start 07/19/18 at 12:00 Vancomycin HCl 1.25 gm/Sodium Chloride 250 ml @ 83.333 mls/ hr Q24H IVPB ; Start 07/20/18 at 06:00 Morphine Sulfate (morphine) 1 mg Q4H PRN IV .SEVERE PAIN 7-10; Start 07/20/18 at 11:00 CRISTINA MORRIS Jul 20, 2018 09:53
[2018-07-20] MEDS ORDERED: LIDOCAINE 1% (MPF) 5 ML VIAL SC ONE (11:30)
[2018-07-20] MEDS: BALSAM PERU/CASTOR OIL 60 GM TUBE TOP SCH ×2 (16:29→20:35)
[2018-07-20] MEDS: morphine 2 MG INJ IV PRN ×2 (19:42→23:43)
[2018-07-21] VITALS (9 sets, daily range): BP systolic 141–162; BP diastolic 77–85; PULSE 82–115; RESP 18
[2018-07-21] MEDS: LORAZEPAM 2 MG INJ IV PRN (01:02)
[2018-07-21] MEDS: DEXTROSE 5%-0.45% NACL 1,000 ML IV SCH ×2 (04:00→15:45)
[2018-07-21] MEDS: morphine 2 MG INJ IV PRN ×2 (05:03→15:47)
[2018-07-21] MEDS: PIPER-TAZO 3.375 GM IV (PMX) 100 ML IVPB SCH ×3 (05:57→18:01)
[2018-07-21] MEDS: BALSAM PERU/CASTOR OIL 60 GM TUBE TOP SCH (09:04)
--- NOTE | 2018-07-21 12:37 | CONS ---
Consult Date/Type/Reason Admit Date/Time Jul 17, 2018 at 17:54 Initial Consult Date Type of Consult Pulmonary Date/Time of Note DATE: 07/21/18 TIME: 12:36 Subjective Patient remained stable this morning denies respiratory distress morning to go home Objective Vital Signs Date Temp Pulse Resp B/P (MAP) Pulse Ox O2 O2 Flow FiO2 Time Delivery Rate 07/21/18 107 08:00 07/21/18 5.0 07:56 07/21/18 97.6 18 162/85 98 Trach 07:26 (110) Collar 07/21/18 28 06:03 Intake and Output 07/20/18 07/20/18 07/21/18 1515:00 23:00 07:00 IntakeIntake Total 250 ml 1060 ml OutputOutput Total 800 ml 1100 ml BalanceBalance -550 ml -40 ml Exam PHYSICAL EXAMINATION: GENERAL: Well-nourished, well-developed gentleman trach site clean and intact some bloody secretions VITAL SIGNS: NECK: Supple. No JVD or lymphadenopathy. CARDIAC: Sounds S1, S2, no added sounds or murmurs. CHEST: Diminished air entry bilaterally. ABDOMEN: Soft, nontender. No guarding or rebound. EXTREMITIES: No cyanosis, clubbing, 1+ edema. NEUROLOGIC: Generalized weakness. Vent Setting Ventilator Support Mode: AC Fraction of Inspired Oxygen pe: 28 Positive End Expiratory Pressu: 5.0 Results/Medications Result Diagram: 07/21/18 0533 07/21/18 0533 Results 24 hrs Laboratory Tests Test 07/21/18 05:33 White Blood Count 7.1 Red Blood Count 3.63 L Hemoglobin 8.6 L Hematocrit 29.0 L Mean Corpuscular Volume 79.9 L Mean Corpuscular Hemoglobin 23.7 L Mean Corpuscular Hemoglobin Concent 29.7 L Red Cell Distribution Width 16.4 H Platelet Count 363 Mean Platelet Volume 10.1 Immature Granulocytes % 0.300 Neutrophils % 74.3 Lymphocytes % 11.2 L Monocytes % 11.4 H Eosinophils % 2.7 Basophils % 0.1 Nucleated Red Blood Cells % 0.0 Immature Granulocytes # 0.020 Neutrophils # 5.3 Lymphocytes # 0.8 Monocytes # 0.8 Eosinophils # 0.2 Basophils # 0.0 Nucleated Red Blood Cells # 0.0 Sodium Level 138 Potassium Level 3.2 L Chloride Level 98 Carbon Dioxide Level 30 Anion Gap 10 Blood Urea Nitrogen 6 L Creatinine 0.70 Est Glomerular Filtrat Rate mL/min > 60 Glucose Level 94 Calcium Level 9.0 Medications Current Medications IV Flush (NS 3 ml) 3 ml PER PROTOCOL IV ; Start 07/17/18 at 19:00 Ondansetron HCl (Zofran Inj) 4 mg Q6H PRN IV NAUSEA/VOMITING; Start 07/17/18 at 19:00 Acetaminophen (Tylenol Tab) 650 mg Q6H PRN PO .PAIN 1-3 OR TEMP; Start 07/17/18 at 19:00 Acetaminophen/ Hydrocodone Bitart ([place] (5/325)) 1 tab Q6H PRN PO .MOD PAIN 4- 6 Last administered on 07/17/18at 21:18; Admin Dose 1 TAB; Start 07/17/18 at 19:00 Docusate Sodium (Colace) 100 mg Q12H PRN PO .CONSTIPATION; Start 07/17/18 at 19:00 Magnesium Hydroxide (Milk Of Mag) 30 ml DAILY PRN PO .CONSTIPATION; Start 07/17/18 at 19:00 Lorazepam (Ativan) 0.5 mg Q6H PRN IV ANXIETY Last administered on 07/21/18at 01:02; Admin Dose 0.5 MG; Start 07/17/18 at 19:00 Albuterol/ Ipratropium (Duoneb) 3 ml Q4H RESP THERAPY PRN HHN SHORTNESS OF BREATH; Start 07/17/18 at 19:00 Vancomycin HCl (Vanco Iv Per Pharmacy) VANCOMYCIN PER PHARMACY NOTE XX ; Start 07/17/18 at 19:00 Hydralazine HCl (Apresoline) 10 mg Q6H PRN IV ELEVATED BLOOD PRESSURE Last administered on 07/19/18at 21:46; Admin Dose 10 MG; Start 07/17/18 at 19:00 Nitroglycerin (Nitroglycerin (Sl Tab) 0.4 Mg) 1 tab Q5M PRN SL ANGINA; Start 07/17/18 at 19:00 Hydralazine HCl (Apresoline) 25 mg Q8H PRN GTB ELEVATED BLOOD PRESSURE; Start 07/17/18 at 19:00 Acetylcysteine (Mucomyst) 2 ml Q4H RESP THERAPY PRN NEB THICK SECRETIONS; Start 07/17/18 at 23:30 Miscellaneous Information (Pending [facility] Order For Wound Care) 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 PRN PRN XX WOUND CARE; Start 07/18/18 at 01:00 Dextrose/Sodium Chloride 1,000 ml @ 75 mls/hr [id number] IV Last administered on 07/20/18at 16:26; Admin Dose 75 MLS/HR; Start 07/19/18 at 12:00 Morphine Sulfate (morphine) 1 mg Q4H PRN IV .SEVERE PAIN 7-10 Last administered on 07/21/18at 05:03; Admin Dose 1 MG; Start 07/20/18 at 11:00 Piperacillin Sod/ Tazobactam Sod 100 ml @ 200 mls/hr Q6 IVPB Last administered on 07/21/18at 12:28; Admin Dose 200 MLS/HR; Start 07/21/18 at 00:00 Vancomycin HCl 1.25 gm/Sodium Chloride 250 ml @ 83.333 mls/ hr Q24H IVPB ; Start 07/21/18 at 18:00 Pantoprazole (Protonix Iv) 40 mg DAILY@06 IV ; Start 07/22/18 at 06:00 Assessment/Plan Hospital Course (Demo Recall) Assessment 1. Cavitating pneumonia with occasional hemoptysis patient previously declined embolization 2. History of COPD 3. Chronic tracheostomy tube 4. Anemia secondary to above Plan 1. Continue antibiotics de-escalation 2. DC planning VAUGHN NICHOLS MD, [facility] Jul 21, 2018 12:37
[2018-07-21] MEDS ORDERED: LEVO750T8 PO (16:13)
--- NOTE | 2018-07-21 16:14 | PDOCDIS ---
Discharge Instructions DIAGNOSIS Discharge Diagnosis Community-acquired lobar pneumonia CONDITION [id number] Patient Condition: [id number] Good HOME CARE INSTRUCTIONS: [id number] Diet Instructions: [id number] Regular ACTIVITY: [id number] Activity Restrictions: [id number] No Restrictions FOLLOW UP/APPOINTMENTS Follow-up Plan 1. Take all medications as prescribed. 2. Finish a ten day course of oral levofloxacin, which is an antibiotic. 3. Be cautious taking benzodiazepines like Xanax along with opiates like [place]. This can cause severe drowsiness and may make you stop breathing. 4. Return to the emergency room for severe difficulty breathing at rest. ANA CARRANZA MD Jul 21, 2018 16:14
[2018-07-21] MEDS ORDERED: VANCOMYCIN HCL 1.25 GM in SOD CHLORIDE 0.9% 250 ML IVPB SCH (18:00)
--- NOTE | 2018-07-21 18:42 | DS ---
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 He was also noted with some mild hypoxia and there was some mild bleeding around the tracheostomy site. Most of the information was obtained from ER documentation as the patient is unable to provide full HPI or review of systems at this time. When the patient came in, he was found with white blood cell count elevated of 11.1 and a chest x-ray showed right lower lobe infiltrate signs of pneumonia and the patient was given antibiotics in the ER. The patient was last here at our hospital based on records from 08/17/2017 to 08/21/2017. At that time, he was treated for COPD exacerbation. PAST MEDICAL HISTORY: As above. ALLERGIES: NO KNOWN DRUG ALLERGIES. HOME MEDICATIONS: 1. Clonidine 0.1 mg as needed. 2. Hydralazine 25 mg q.8 p.r.n. 3. Xanax 2 mg q.8 p.r.n. 4. Gabapentin 800 mg t.i.d. 5. Benezett 10/325 q.6 p.r.n. 6. Protonix 40 mg every morning. PAST SURGICAL HISTORY: Again, he has a tracheostomy placement. He has also had a right ankle surgery in the past. SOCIAL HISTORY: Former alcohol use. Denies any IV drug abuse or smoking history. FAMILY HISTORY: Positive for diabetes. Hospital Course CXR was done concerning for right lower lobe infiltrate. He was started on zosyn. He was not febrile and his hypoxia quickly resolved. There was concern that he may not be a good candidate for independent living; he has several recent hospitalizations and seems to come in every month. But they will give him one last chance. He will be discharged to finish a 10 day course of levofloxacin. Home Meds Active Scripts Levofloxacin* (Levofloxacin*) 750 Mg Tablet, 750 MG PO DAILY, #10 TAB Prov:ANA CARRANZA MD 07/21/18 Reported Medications Pantoprazole* (Pantoprazole*) 40 Mg Tablet.dr, 40 MG GTB AC BREAKFAST, TAB 07/17/18 Clonidine Hcl* (Clonidine Hcl*) 0.1 Mg Tab, 0.1 MG GTB NEEDED, TAB 07/17/18 Hydralazine Hcl* (Hydralazine Hcl*) 25 Mg Tab, 25 MG GTB Q8 PRN for NEEDED, #90 TAB 07/17/18 Gabapentin* (Gabapentin*) 800 Mg Tablet, 800 MG GTB TID, #90 TAB 07/17/18 Alprazolam* (Xanax*) 2 Mg Tablet, 2 MG GTB Q8H PRN for ANXIETY, TAB 07/17/18 Hydrocodone/Acetaminophen (Benezett 10-325 Tablet) 1 Each Tablet, 1 EACH GTB Q6H PRN for NEEDED, TAB 07/17/18 Discontinued Reported Medications Tiotropium [place]* (Spiriva*) 18 Mcg Cap.w.dev, 1 CAP INHALATION DAILY, #30 CAP 12/26/15 Alprazolam* (Alprazolam* ER) 2 Mg Tab.sr.24h, 2 MG GTB TID, TAB.SA 12/26/15 Ondansetron Hcl* (Ondansetron Hcl*) 4 Mg Tablet, 4 MG GTB DAILY PRN for NAUSEA AND OR VOMITING, TAB 12/26/15 Hydralazine Hcl* (Hydralazine Hcl*) 25 Mg Tab, 25 MG GTB Q6 PRN for PRN, #120 TAB 12/26/15 Pantoprazole* (Pantoprazole*) 40 Mg Tablet.dr, 40 MG GTB DAILY, TAB 12/26/15 Clonidine Hcl* (Clonidine Hcl*) 0.1 Mg Tab, 0.1 MG GTB DAILY, TAB 12/26/15 Hydrocodone Bit-Acetaminophen* (Benezett*) 10-325 Mg Tablet, 1 TAB GTB Q8 PRN for PAIN, TAB 06/16/15 Gabapentin* (Neurontin*) 800 Mg Tablet, 800 MG GTB TID, TAB 02/09/15 Discontinued Scripts Zolpidem Tartrate (Ambien Nicolás) 5 Mg Tablet, 5 MG PO QHS PRN for SLEEP for 30 Days, #30 TAB Prov:GENESIS ZHAO MD 02/20/16 Follow-up Plan 1. Take all medications as prescribed. 2. Finish a ten day course of oral levofloxacin, which is an antibiotic. 3. Be cautious taking benzodiazepines like Xanax along with opiates like Benezett. This can cause severe drowsiness and may make you stop breathing. 4. Return to the emergency room for severe difficulty breathing at rest. Primary Care Provider Levy Jean-Baptiste MD Time spent on discharge: > 30 minutes Pending Labs Laboratory Tests Test 07/21/18 05:33 White Blood Count 7.1 10^3/ul (4.8-10.8) Red Blood Count 3.63 10^6/ul (4.70-6.10) Hemoglobin 8.6 g/dl (14.0-18.0) Hematocrit 29.0 % (42.0-52.0) Mean Corpuscular Volume 79.9 fl (82.0-101.0) Mean Corpuscular Hemoglobin 23.7 pg (29.0-33.0) Mean Corpuscular Hemoglobin Concent 29.7 g/dl (32.0-37.0) Red Cell Distribution Width 16.4 % (11.5-14.5) Platelet Count 363 10^3/UL (140-415) Mean Platelet Volume 10.1 fl (7.4-10.4) Immature Granulocytes % 0.300 % (0.001-0.429) Neutrophils % 74.3 % (39.0-77.0) Lymphocytes % 11.2 % (15.0-51.0) Monocytes % 11.4 % (0.0-11.0) Eosinophils % 2.7 % (0.0-7.0) Basophils % 0.1 % (0.0-2.0) Nucleated Red Blood Cells % 0.0 /100WBC (0.0-0.0) Immature Granulocytes # 0.020 10^3/ul (0.0-0.031) Neutrophils # 5.3 10^3/ul (1.6-7.5) Lymphocytes # 0.8 10^3/ul (0.8-2.9) Monocytes # 0.8 10^3/ul (0.3-0.9) Eosinophils # 0.2 10^3/ul (0.0-0.5) Basophils # 0.0 10^3/ul (0.0-0.1) Nucleated Red Blood Cells # 0.0 10^3/ul (0.0-0.0) Sodium Level 138 mmol/L (135-144) Potassium Level 3.2 mmol/L (3.5-5.1) Chloride Level 98 mmol/L (97-110) Carbon Dioxide Level 30 mmol/L (21-31) Anion Gap 10 (5-13) Blood Urea Nitrogen 6 mg/dl (7-20) Creatinine 0.70 mg/dl (0.61-1.24) Est Glomerular Filtrat Rate mL/min > 60 mL/min (>60) Glucose Level 94 mg/dl (70-220) Calcium Level 9.0 mg/dl (8.4-10.2) ANA CARRANZA MD Jul 21, 2018 18:42
[2018-07-22] MEDS ORDERED: PANTOPRAZOLE 40 MG INJ IV SCH (06:00)
== END 2018-07-21 20:14 | disposition home or self-care (01) | DRG 208 ==
LOC: E/R 15:57 → TEL 17:54 → ICU 07-18 01:25 → 6WM 07-18 15:00
PROVIDERS: ADMIT Hospitalist; ATTEND Internal Medicine
PROC: 5A1935Z Respiratory Ventilation, Less than 24 Consecutive Hours (ICD-10-PCS; principal; 2018-07-18)
DX: J18.1 Lobar pneumonia, unspecified organism (principal); L89.153 Pressure ulcer of sacral region, stage 3; J44.0 Chronic obstructive pulmonary disease with (acute) lower respiratory infection; J95.01 Hemorrhage from tracheostomy stoma; E44.0 Moderate protein-calorie malnutrition; J96.11 Chronic respiratory failure with hypoxia; J98.4 Other disorders of lung; I10 Essential (primary) hypertension; D64.9 Anemia, unspecified; Z68.21 Body mass index [BMI] 21.0-21.9, adult; Z93.0 Tracheostomy status; Z87.891 Personal history of nicotine dependence
CPT/HCPCS: 36600; 71045; 80048; 80061; 80202; 82803; 83036; 83735; 84100; 84439; 84443; 84484; 85025; 87040; 87081; 87400; 92526; 92610; 93005; 94002; 94644; 96374; 96375; 97116; 97163; 97530; J0360; J0696; J2060; J2270; J2543; J2930; J3370; J7030; J7042; J7050

== ENCOUNTER 2018-08-10 15:32 | Inpatient (IN) | payer MEDICARE, OTHER ==
[~2018-08-10] VITALS: Ht 188 cm; Wt 72.0 kg
[~2018-08-10 15:32] MED LIST changes: +ALPR2TAB GTB; -ALPR2TAB3 GTB; +GABA-528 GTB; -GABA800T GTB; +HYDR-3980 GTB; -HYDR-762 GTB; +LEVO750T8 PO; -ONDA4TAB95 GTB; -TIOT18CA INHALATION; -ZOLP5TAB PO
[2018-08-10] MEDS ORDERED: VANCOMYCIN 1 GM (PMX) 250 ML IVPB ONE (16:30)
[2018-08-10] MEDS ORDERED: LEVOFLOXACIN 750MG/D5W (PMX) 150 ML IVPB ONE (16:30)
[2018-08-10] MEDS ORDERED: SOD CHLORIDE 0.9% IV ONE (16:30)
[2018-08-10] MEDS ORDERED: CEFEPIME 1GM/50 ML (PMX) 50 ML IVPB ONE (16:30)
[2018-08-10] MEDS ORDERED: ACETAMINOPHEN 650MG/20.3ML CUP PO PRN (18:00)
[2018-08-10] MEDS ORDERED: IPRATROPIUM (HFA) 12.9 GM INHALER INH PRN (18:00)
[2018-08-10] MEDS ORDERED: ONDANSETRON 4 MG INJ IV PRN (18:00)
--- NOTE | 2018-08-10 18:01 | HP ---
Date/Time of Note Date/Time of Note DATE: 08/10/18 TIME: 18:01 Assessment/Plan VTE Prophylaxis SCD applied (from Nsg): Yes Pharmacological prophylaxis: heparin Lines/Catheters IV Catheter Type (from Nrsg): Saline Lock Assessment/Plan Assessment/Plan 1. Acute hypoxic respiratory failure - most likely secondary to cannula dislodged which probably cause aspiration given findings of right sided PNA on CXR - placed on mechanical ventilation in ED and will consult Pulm for management - Patient is usually trach to room air 2. Shock - cardiogenic in setting of severe hypoxia? - started on Levophed in ED after did not respond to 2L NSS - will titrate to maintain MAP >65 and wean as tolerated 3. Right sided pneumonia - most likely aspiration - IV antibiotics on board - Nebs PRN 4. JOCELIN - unknown baseline - Dr. Salinas consulted for further recommendations - Renal US ordered - IVF on board 5. Anemia - most likely iron deficiency in setting of low MCV - no need for transfusion at this time - will need supplementation when sepsis resolves 6. Diet - NPO for now 7. DVT ppx - Heparin 8. Disposition - Admit to ICU for treatment of sepsis secondary to aspiration pneumonia and shock requiring pressor support. Hopefully patient can be weaned off vent so we are able to get a full history from him. Result Diagram: 08/10/18 1603 08/10/18 1603 Results 24hrs Laboratory Tests Test 08/10/18 16:02 08/10/18 16:03 08/10/18 16:30 08/10/18 17:30 POC Venous 2.0 Lactate White Blood Count 7.0 Red Blood Count 3.93 L Hemoglobin 8.7 L Hematocrit 31.4 L Mean Corpuscular 79.9 L Volume Mean Corpuscular 22.1 L Hemoglobin Mean Corpuscular 27.7 L Hemoglobin Concen t Red Cell 18.4 H Distribution Width Platelet Count 371 Mean Platelet 9.8 Volume Immature 0.400 Granulocytes % Neutrophils % 79.7 H Lymphocytes % 12.6 L Monocytes % 6.6 Eosinophils % 0.4 Basophils % 0.3 Nucleated Red 0.0 Blood Cells % Immature 0.030 Granulocytes # Neutrophils # 5.6 Lymphocytes # 0.9 Monocytes # 0.5 Eosinophils # 0.0 Basophils # 0.0 Nucleated Red 0.0 Blood Cells # Prothrombin Time 12.9 Prothrombin Time 1.0 Ratio INR International 0.96 Normalized Ratio Activated 41.8 H Partial Thrombopl ast Time Sodium Level 140 Potassium Level 4.0 Chloride Level 103 Carbon Dioxide 27 Level Anion Gap 10 Blood Urea 26 H Nitrogen Creatinine 2.42 H Est Glomerular 32 L Filtrat Rate mL/min Glucose Level 141 Calcium Level 9.7 Total Bilirubin 0.1 L Direct Bilirubin 0.00 Indirect 0.1 Bilirubin Aspartate Amino 88 H Transf (AST/SGOT) Alanine 14 Aminotransferase (ALT/SGPT) Alkaline 96 Phosphatase Troponin I 0.034 Total Protein 8.1 Albumin 3.8 Globulin 4.30 H Albumin/Globulin 0.88 Ratio Blood Gas Blood arterial Specimen Source Arterial Blood 08/10/2018 5:13:0 Date Drawn 1 PM Arterial Blood pH 7.344 L (Temp corrected) Arterial Blood 40.8 pCO2 (Temp correct) Arterial Blood 127.3 H pO2 (Temp corrected) Arterial Blood 21.7 L HCO3 Arterial Blood -3.7 L Base Excess Arterial Blood 98.3 H Oxygen Saturation Ravindra Test ACCEPTAB Arterial Blood Right Radial Gas Puncture Site Arterial 0.4 Blood Carboxyhemo globin Arterial Blood 0.4 Methemoglobin Blood Gas A-a O2 38.7 H Differential Oxyhemoglobin 97.5 Percent Blood Gas 37.0 Temperature Blood Gas 16.0 Respiration Rate Blood Gas Actual 16 Respiration Rate Blood Gas VENT - AC Modality FiO2 30.0 Blood Gas Tidal 500.0 Volume Blood Gas Low 5.0 PEEP Setting Blood Gas M.D. Notified Whom Blood Gas 08/10/2018 5:23:2 Notified Time 7 PM Urine Color LAVELL Urine Clarity CLOUDY A Urine pH 5.0 Urine Specific 1.017 [place] Urine Ketones NEGATIVE Urine Nitrite NEGATIVE Urine Bilirubin NEGATIVE Urine NEGATIVE Urobilinogen Urine Leukocyte NEGATIVE Esterase Urine Microscopic 1 RBC Urine Microscopic 3 WBC Urine Squamous FEW Epithelial Cells Urine Bacteria FEW A Urine Hyaline FEW A Casts Urine Mucus FEW A Urine Hemoglobin 2+ H Urine Glucose NEGATIVE Urine Total 2+ H Protein HPI/ROS Admit Date/Time Admit Date/Time 08/10/18 Hx of Present Illness 67 yo M with unknown PMH with trach to room air presented via EMS to ED comp laining of respiratory distress. History obtained from ED physician given patient is lethargic and minimally responsive. Per ED physician, patients cannula was dislodged and he went to his neighbor to ask for help. EMS was called and patient was found to be saturating 50%. His trach was changed and placed on mechanical ventilation. Imaging studies were obtained and found to right sided pneumonia. He was also noted with low BP and started on pressor support. Patient did nod yes when asked if he had pain and pointed at trach site. Did not answer any further questions. ROS All 12 systems reviewed and pertinent positives as per HPI. Unable to fully o btain ROS given lethargic and pt nonverbal. Subjective hx not possible: pt non-verbal ENT: pain PMH/Family/Social Past Medical History Medical History: other (unknown) Medications Current Medications Vancomycin HCl 250 ml @ 125 mls/hr ONCE ONCE IVPB ; Start 08/10/18 at 16:30; Stop 08/10/18 at 18:29 Levofloxacin/ Dextrose 150 ml @ 100 mls/hr ONCE ONCE IVPB ; Start 08/10/18 at 16:30; Stop 08/10/18 at 17:59 Coded Allergies: Unknown: Unable to obtain (Unverified , 08/10/18) Past Surgical History Past Surgical Hx: other (trach placement) Family History Significant Family History: other (unknown) Social History Alcohol Use: other (unknown) Smoking Status: Former smoker Drug Use: other (unknown) Exam/Review of Systems Vital Signs Vitals Vital Signs Date Temp Pulse Resp B/P (MAP) Pulse Ox O2 O2 Flow FiO2 Time Delivery Rate 08/10/18 98.0 75 20 75/58 (64) 99 Mechanical 17:38 Ventilator 08/10/18 30 17:25 Exam Exam General: Patient is lethargic, grimacing when asked if in pain and points to neck, no respiratory distress noted HEENT: Atraumatic, normocephalic. The pupils are equal, round and reactive. Extraocular motor are intact Neck: Supple with full range of motion. No rigidity or meningismus Chest: Nontender Lungs: Diminished breath sounds with crackles at bases, R>L. no wheezing appreciated Heart: Normal S1-S2, Regular rate and rhythm. No murmur, S3, or S4 Abdomen: Soft , nontender, nondistended , bowel sounds are present. No guarding no rebound tenderness , No masses or organomegaly. No costovertebral temporal angle mass Extremities: Normal to inspection, no edema no cyanosis Neurologic: Normal mental status, speech normal, cranial nerves II through XII are intact, motor and sensory are intact,no focal deficits Skin: no skin lesions or rashes Additional Comments PROCEDURE: XR Chest. CLINICAL INDICATION: chest pain TECHNIQUE: Single frontal view of the chest was obtained COMPARISON: None FINDINGS: The heart is normal in size. Thoracic aorta is calcified. There is a right lower lobe infiltrate and right pleural effusion. There is volume loss in the right hemithorax with increased interstitial changes. There are multiple healed right-sided posterior rib fractures. There is a tracheostomy tube in place. There is no pleural effusion or pneumothorax. RPTAT: AA IMPRESSION: Right lower lobe infiltrate and right pleural effusion. Volume loss in the right hemithorax with increased interstitial changes. Multiple healed fractures in the right hemithorax and right scapula. .Wilton Alcocer MD, MD Date Time Electronically viewed and signed by .Wilton Alcocer MD, MD on 08/10/2018 16:12 FRANKO SAUCEDA MD Aug 10, 2018 18:01
[2018-08-10] MEDS ORDERED: NORepinephrine 8MG/250 ML (PMX 250 ML ONE (18:12)
[2018-08-10] MEDS: NORepinephrine 8MG/250 ML (PMX 250 ML IV SCH (18:15)
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
[2018-08-10] MEDS: DEXTROSE 5%-0.45% NACL 1,000 ML IV SCH (20:18)
[2018-08-10] MEDS: HEPARIN 5,000 UNIT/1 ML VIAL SC SCH (20:35)
[2018-08-10] MEDS: IPRATROPIUM (HFA) 12.9 GM INHALER INH SCH (21:23)
[2018-08-10] MEDS: LORAZEPAM 2 MG INJ IV PRN (23:50)
[2018-08-11] VITALS (66 sets, daily range): BP systolic 76–141; BP diastolic 52–97; PULSE 77–108; RESP 0–32; Ht 188 cm; Wt 72.0 kg
[2018-08-11] MEDS: IPRATROPIUM (HFA) 12.9 GM INHALER INH SCH ×6 (01:31→20:20)
[2018-08-11] MEDS: DEXTROSE 5%-0.45% NACL 1,000 ML IV SCH (03:35)
[2018-08-11] MEDS: morphine 2 MG INJ IV PRN ×2 (05:16→19:53)
[2018-08-11] MEDS: PANTOPRAZOLE 40 MG INJ IV SCH (05:19)
--- NOTE | 2018-08-11 09:42 | PN ---
Date/Time of Note Date/Time of Note DATE: 08/11/18 TIME: 09:42 Objective Vitals Vital Signs Date Temp Pulse Resp B/P (MAP) Pulse Ox O2 O2 Flow FiO2 Time Delivery Rate 08/11/18 98 22 121/64 100 Mechanical 09:00 (83) Ventilator 08/11/18 98.0 08:32 08/11/18 30 07:45 Results Result Diagram: 08/11/18 0857 08/10/18 1603 Medications Medications Current Medications Dextrose/Sodium Chloride 1,000 ml @ 100 mls/hr Q10H IV Last administered on 08/11/18at 03:35; Admin Dose 100 MLS/HR; Start 08/10/18 at 17:56 Ondansetron HCl (Zofran Inj) 4 mg Q6H PRN IV NAUSEA AND/OR VOMITING; Start 08/10/18 at 18:00 Ipratropium [place] (Atrovent Hfa) 4 puff Q4H RESP THERAPY INH Last administered on 08/11/18at 05:13; Admin Dose 4 PUFF; Start 08/10/18 at 21:00 Ipratropium [place] (Atrovent Hfa) 4 puff Q2H RESP THERAPY PRN INH SHORTNESS OF BREATH; Start 08/10/18 at 18:00 Acetaminophen (Tylenol Liquid) 650 mg Q6H PRN PO PAIN LEVEL 1-3 OR FEVER; Start 08/10/18 at 18:00 Morphine Sulfate (morphine) 2 mg Q4H PRN IV PAIN LEVEL 7-10 Last administered on 08/11/18at 05:16; Admin Dose 2 MG; Start 08/10/18 at 18:00 Pantoprazole (Protonix Iv) 40 mg DAILY@06 IV Last administered on 08/11/18at 05:19; Admin Dose 40 MG; Start 08/11/18 at 06:00 Heparin Sodium (Porcine) (Heparin (5000 Units/1ml)) 5,000 unit Q12 SC Last administered on 08/10/18at 20:35; Admin Dose 5,000 UNIT; Start 08/10/18 at 21:00 Norepinephrine 250 ml @ 1.875 mls/ hr TITRATE IV Last administered on 08/10/18at 18:15; Admin Dose 1.875 MLS/HR; Start 08/10/18 at 18:30 Lorazepam (Ativan) 0.5 mg Q6H PRN IV PRN Last administered on 08/10/18at 23:50; Admin Dose 0.5 MG; Start 08/11/18 at 00:00 Piperacillin Sod/ Tazobactam Sod 100 ml @ 200 mls/hr Q6 IVPB ; Start 08/11/18 at 12:00; Status UNV VTE Prophylaxis SCD applied (from Ns): Yes Lines/Catheters IV Catheter Type: At[place] in Place: No Assessment/Plan Hospital Course Subjective Patient appears to be more awake than yesterday, able to follow simple commands and able to answer simple questions with nodding of the head Objective Physical exam General: Patient is laying in bed and answers questions appropriately but slowly, trach to vent Mentation: Patient is alert and oriented somewhat Head: Normocephalic atraumatic Eyes: EOMI, pupils reactive to light Neck: Supple, nontender, midline Respiratory: Clear to auscultation bilaterally Cardiovascular: regular rate, no obvious murmurs Gastrointestinal: non-tender to palpation, bowel sounds heard. Neurological: Moves all extremities spontaneously but minimal Skin: No new skin lesions Assessment and plan Acute hypoxic respiratory failure -Likely secondary to dislodged cannula and aspiration pneumonia -On vent for now -Pulmonology following -Patient baseline is trach to air -Pulmonology is very familiar with this patient Acute encephalopathy -Resolving significantly from yesterday -Patient able to follow all commands however appears very weak -Likely secondary to pneumonia and sepsis -Patient improving, will monitor Septic shock -Patient on pressors -Secondary likely due to pneumonia -IV antibiotic -ID on board -Blood cultures pending Right-sided pneumonia -Likely aspiration due to decompensation at home -IV antibiotic -Infectious disease on board Acute kidney injury -Patient having normal kidney function a few weeks ago when admitted, nephrology on board -Continue IV hydration -Further recommendations per nephrology History of cystic lung disease -Pulmonology well aware of patient's condition -Breathing treatments as needed -Please wean off vent as able pulmonology History of COPD -Manage as per pulmonology Anemia -We will closely monitor and transfuse as needed, no overt signs of GI bleed Disposition -More than 40 minutes of medical care time was spent on this encounter -Pulmonology and nephrology recommendations appreciated -Titrate off pressors when able. RAUL CRANE Aug 11, 2018 09:42
--- NOTE | 2018-08-11 11:40 | CONS ---
DATE OF ADMISSION: 08/10/2018 DATE OF CONSULTATION: 08/11/2018 TYPE OF CONSULTATION: Nephrology. REASON FOR CONSULTATION: Acute kidney injury. PHYSICIAN REQUESTING CONSULT: Dr. Franko Renteria. HISTORY OF PRESENT ILLNESS: This is a 67-year-old male with a past medical history of chronic respir atory failure, history of encephalopathy, history of hypertension who presents to [facility] Emergency Room after patient noted to be in respiratory distress with dislodged trachea. Patient ca lled 911 from his house, was brought into the Emergency Room, the patient was on ambu-bag at the time . Upon arrival, the patient was unable to provide any history. The patient had a trach placed in e Emergency Room. The patient also had laboratory data drawn and a chest x-ray which showed finding s of right lower lobe infiltrate, right pleural effusion, volume loss. The patient in the Emergency Room was noted to be hypertensive, was started on pressor support, on IV fluids and antibiotic therap y. In terms of patient's renal history, the patient on admission noted to have a creatinine of 2.42 mg/d L. The patient is receiving IV fluids, had improvement in creatinine to 6 mg/dL. There have been no reports of any hemoptysis, hematemesis or hematochezia. PAST MEDICAL HISTORY: As stated above, history of chronic respiratory failure, history of encephalop athy, history of hypertension. PAST SURGICAL HISTORY: Status post trach. FAMILY HISTORY: No family history of kidney disease. SOCIAL HISTORY: Unknown. ALLERGIES: No known drug allergies. MEDICATIONS: Patient medications reviewed. REVIEW OF SYSTEMS: Unable to do adequate review of systems. The patient is altered. Pertinent posi tives as obtained by reviewing medical records, speaking to hospital staff, stated in HPI, otherwise negative. PHYSICAL EXAMINATION: VITAL SIGNS: Blood pressure is 121/64, respirations 22, pulse 98, temperature 98.0. HEENT: Head is normocephalic. NECK: Supple. HEART: Regular rate. LUNGS: Show diminished breath sounds at base. ABDOMEN: Soft, nontender to palpation without rebound or guarding. EXTREMITIES: Negative for clubbing, cyanosis. Positive edema. DERMATOLOGIC: No rashes. MUSCULOSKELETAL: No joint effusion. No change in exam. NEUROLOGIC: Limited exam due to lack of patient cooperation. LABORATORY DATA: Have been reviewed. IMAGING STUDIES: Have been reviewed. ASSESSMENT AND PLAN: This is a 67-year-old male who presents with: 1. Nonoliguric acute kidney injury with unknown baseline creatinine. Etiology of acute kidney injur y is secondary to hemodynamics, sepsis. The patient's urinalysis was reviewed, showed evidence of hy anahy casts, positive proteinuria, otherwise, no hematuria, no pyuria. These findings are consistent with hemodynamics, possible volume depletion. The patient's renal function has improved with IV hydr ation. Recommendation at this point is to continue current medical management. Continue pressor sup port to maintain MAP of 65. Continue IV fluids, continue antibiotic therapy, will continue to renall y dose all meds, avoid nephrotoxins. 2. Anemia. Continue to monitor hemoglobin and hematocrit levels. We will check an iron panel. 3. Mineral bone disorder, monitor calcium and phosphorus level. 4. Septic shock. Etiology is felt to be secondary to pneumonia. Continue current medical managemen t. Continue antibiotics, pressor support. Follow up infectious disease. 5. Acute on chronic respiratory failure. The patient is currently on vent support. ABG and vent se ttings have been reviewed. Continue to monitor. Follow up with pulmonary. 6. Acute encephalopathy. Etiology is toxic metabolic. Continue to monitor. 7. History of lung disease. Continue to monitor. 8. History of chronic obstructive pulmonary disease. Continue medical management, continue nebulize rs. Thank you, Dr. Renteria, for this interesting consult. It will be a pleasure to follow patient with yo u throughout the hospital course. Dictated By: INES MOREIRA DO NR/NTS Conf#: [id number] DID#: [id number] CC: FRANKO RENTERIA MD;*EndCC*
[2018-08-11] MEDS: PIPER-TAZO 3.375 GM IV (PMX) 100 ML IVPB SCH ×3 (11:46→23:31)
[2018-08-11] MEDS: SOD CHLORIDE 0.9% 1,000 ML IV SCH ×3 (11:48→23:15)
[2018-08-11] MEDS ORDERED: PIPER-TAZO 3.375 GM IV (PMX) 100 ML IVPB SCH (12:00)
--- NOTE | 2018-08-11 12:28 | CONS ---
DATE OF ADMISSION: 08/10/2018 DATE OF CONSULTATION: 08/11/2018 TYPE OF CONSULTATION: Pulmonary. REASON FOR CONSULTATION: Respiratory distress. Thank you, Dr. Hemphill, for this consultation. 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 Also found to be hypoxemic with hypotension. The patient placed on mechanical ventil ation central line placed, placed on vasopressor support, now is more awake, alert, comfortable on lo w dose Levophed. PAST MEDICAL HISTORY: As above. MEDICATIONS: Per chart. ALLERGIES: None. SOCIAL HISTORY: He is a nonsmoker, no alcohol, no history of drug use. FAMILY HISTORY: Noncontributory. SYSTEMS REVIEW: A 12-point review of systems was negative other than that mentioned above. PHYSICAL EXAMINATION: GENERAL: Well-nourished, well-developed gentleman, appears comfortable at rest, no acute distress. VITAL SIGNS: Currently afebrile, pulse is 90, blood pressure is 120/50, O2 saturation 96%, FIO2 30%. NECK: Trach site clean and intact. CARDIAC: S1, S2, no added sounds or murmurs. CHEST: Diminished air entry bilaterally. ABDOMEN: Soft, nontender. No guarding or rebound. EXTREMITIES: No cyanosis, clubbing, or edema. NEUROLOGIC: Grossly intact. No focal deficits. LABORATORY DATA: White count 7.5, hemoglobin 7.3, platelets of 344. BUN 19, creatinine initially 2. 42 now 1.46. Arterial blood gas pH 7.34, pCO2 of 40, pO2 127. DIAGNOSTIC DATA: Chest x-ray shows new right lower lobe infiltrates. IMPRESSION AND PLAN: 1. Likely health-care associated pneumonia versus aspiration. 2. Chronic respiratory failure with tracheostomy. 3. Cavitating lung disease. 4. Medication noncompliance. 5. Septic shock secondary to above. 6. Renal insufficiency, likely acute tubular necrosis injury. THE PATIENT WILL REQUIRE: 1. Continue volume resuscitation. 2. Transfusion of packed red blood cells for anemia. 3. Wean off vasopressors. 4. Broad-spectrum antibiotics. 5. Hopefully, take off mechanical ventilation tomorrow. 6. Advance diet If cleared by speech therapy. Dictated By: VAUGHN NICHOLS MD SV/MARIA GUADALUPE Conf#: [id number] DID#: [id number] CC: JOSHUA HEMPHILL MD; FRANKO SAUCEDA MD;*End*
[2018-08-11] MEDS: HEPARIN 5,000 UNIT/1 ML VIAL SC SCH ×2 (14:22→21:05)
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
[2018-08-11] MEDS ORDERED: CEFEPIME 1GM/50 ML (PMX) 50 ML IVPB SCH (17:00)
[2018-08-11] MEDS: NORepinephrine 8MG/250 ML (PMX 250 ML IV SCH (18:14)
[2018-08-11] MEDS: LORAZEPAM 2 MG INJ IV PRN (22:04)
[2018-08-12] VITALS (64 sets, daily range): BP systolic 88–154; BP diastolic 54–97; PULSE 66–111; RESP 9–30
[2018-08-12] MEDS: IPRATROPIUM (HFA) 12.9 GM INHALER INH SCH ×3 (01:35→08:09)
[2018-08-12] MEDS: morphine 2 MG INJ IV PRN ×5 (04:12→22:06)
[2018-08-12] MEDS: PANTOPRAZOLE 40 MG INJ IV SCH (05:44)
[2018-08-12] MEDS: PIPER-TAZO 3.375 GM IV (PMX) 100 ML IVPB SCH ×3 (05:45→18:17)
[2018-08-12] MEDS: SOD CHLORIDE 0.9% 1,000 ML IV SCH (05:53)
[2018-08-12] MEDS ORDERED: NORepinephrine 8MG/250 ML (PMX 250 ML IV SCH (08:00)
--- NOTE | 2018-08-12 08:08 | PN ---
DATE: 08/12/2018 SUBJECTIVE: The patient remains critically ill on pressor support. The patient remains on full vent ilatory support. Urinary output has been marginal. No other acute events noted. No hemoptysis, hem atemesis, or hematochezia. OBJECTIVE: VITAL SIGNS: Blood pressure is 125/64, respirations 16, pulse is 72, temperature is 98.6. HEENT: Head is normocephalic. NECK: Supple. HEART: Regular rate. LUNGS: Show diminished breath sounds at the base. ABDOMEN: Soft, nontender to palpation without rebound or guarding. EXTREMITIES: Negative for clubbing, cyanosis. Trace edema. DERMATOLOGIC: No rashes. MUSCULOSKELETAL: No joint effusion. NEUROLOGIC: No change in exam. MEDICATIONS: Reviewed. LABORATORY DATA: Shows sodium 144, potassium 3.5, BUN 12, creatinine 1.25. White count 6.2, hemoglo bin 7.3, platelet count is 285. Urinalysis shows FENa greater than 1%, a protein creatinine ratio of approximately 400 mg per gram of creatinine. The patient's microbiology was reviewed. IMAGING STUDIES: Chest x-ray was reviewed. Renal ultrasound was reviewed. ASSESSMENT AND PLAN: 1. Nonoliguric acute kidney injury with previously normal baseline creatinine. Etiology of acute ki dney injury is secondary to hemodynamics and sepsis. The patient's renal function has been improving with IV fluids, pressor support, and antibiotic therapy. At this point, we will continue current tr eatment plan. Continue current medical management. Continue renally dose all medicines and avoid ne phrotoxins. 2. Anemia. The patient's iron panel suggests a component of iron deficiency. We will continue to m onitor hemoglobin and hematocrit levels. Consider IV iron. 3. Mineral bone disorder, monitor calcium and phosphorus levels. 4. Septic shock, etiology is felt to be secondary to pneumonia. The patient is currently on pressor support, IV fluids, and antibiotic therapy. We will continue to wean down pressor support as tolera stephani. 5. Ventilator-dependent respiratory failure. Vent settings and ABG was reviewed. Continue to monit or. Follow up with pulmonary. 6. Acute encephalopathy, etiology is toxic metabolic. Continue to monitor. 7. History of chronic obstructive pulmonary disease. Continue medical management. Continue nebuliz ers. Dictated By: INES HENRIQUEZ/MARIA GUADALUPE Conf#: [id number] DID#: [id number] CC: INES MOREIRA DO; RAUL CRANE MD; FRANKO SAUCEDA MD;*[facility]*
[2018-08-12] MEDS: HEPARIN 5,000 UNIT/1 ML VIAL SC SCH ×2 (08:34→21:06)
--- NOTE | 2018-08-12 09:54 | CONS ---
Consult Date/Type/Reason Admit Date/Time Aug 10, 2018 at 17:36 Initial Consult Date Type of Consult Pulmonary Date/Time of Note DATE: 08/12/18 TIME: 09:53 Subjective Patient stable this morning. Off vasopressors no respiratory distress. Objective Vital Signs Date Temp Pulse Resp B/P (MAP) Pulse Ox O2 O2 Flow FiO2 Time Delivery Rate 08/12/18 76 19 98/65 (76) 100 Mechanical 09:00 Ventilator 08/12/18 98.0 08:00 08/12/18 30 05:13 Intake and Output 08/11/18 08/11/18 08/12/18 1515:00 23:00 07:00 IntakeIntake Total 520.56 ml 874.9975 ml 1013.600 ml OutputOutput Total 500 ml 415 ml 245 ml BalanceBalance 20.56 ml 459.9975 ml 768.600 ml Exam PHYSICAL EXAMINATION: GENERAL: Well-nourished, well-developed gentleman, appears comfortable at rest, no acute distress. VITAL SIGNS: NECK: Trach site clean and intact. CARDIAC: S1, S2, no added sounds or murmurs. CHEST: Diminished air entry bilaterally. ABDOMEN: Soft, nontender. No guarding or rebound. EXTREMITIES: No cyanosis, clubbing, or edema. NEUROLOGIC: Grossly intact. No focal deficits. Vent Setting Ventilator Support Mode: AC Fraction of Inspired Oxygen pe: 30 Positive End Expiratory Pressu: 5.0 Results/Medications Result Diagram: 08/12/18 0415 08/12/18 0415 Results 24 hrs Laboratory Tests Test 08/11/18 10:19 08/11/18 23:55 08/12/18 04:15 Absolute Reticulocyte Count 0.033 Percent Reticulocyte Count 1.0 Iron Level < 10 L Total Iron Binding Capacity 247 Percent Iron Saturation Ferritin 100.0 Urine Color YELLOW Urine Clarity CLEAR Urine pH 6.0 Urine Specific [place] 1.020 Urine Ketones 1+ H Urine Nitrite NEGATIVE Urine Bilirubin NEGATIVE Urine Urobilinogen NEGATIVE Urine Leukocyte Esterase NEGATIVE Urine Hemoglobin NEGATIVE Urine Random Creatinine 138.20 Urine Random Sodium 159 H Urine Glucose NEGATIVE Urine Total Protein 43.0 H White Blood Count 6.2 Red Blood Count 3.10 L Hemoglobin 7.3 L Hematocrit 23.8 L Mean Corpuscular Volume 76.8 L Mean Corpuscular Hemoglobin 23.5 L Mean Corpuscular Hemoglobin Concent 30.7 L Red Cell Distribution Width 18.9 H Platelet Count 285 Mean Platelet Volume 10.6 H Immature Granulocytes % 0.600 H Neutrophils % 76.0 Lymphocytes % 10.4 L Monocytes % 11.7 H Eosinophils % 1.0 Basophils % 0.3 Nucleated Red Blood Cells % 0.0 Immature Granulocytes # 0.040 H Neutrophils # 4.7 Lymphocytes # 0.6 L Monocytes # 0.7 Eosinophils # 0.1 Basophils # 0.0 Nucleated Red Blood Cells # 0.0 Sodium Level 144 Potassium Level 3.5 Chloride Level 113 H Carbon Dioxide Level 24 Anion Gap 7 Blood Urea Nitrogen 12 Creatinine 1.25 H Est Glomerular Filtrat Rate mL/min > 60 Glucose Level 73 # Calcium Level 8.5 Total Bilirubin 0.5 Direct Bilirubin 0.00 Indirect Bilirubin 0.5 Aspartate Amino Transf (AST/SGOT) 56 H Alanine Aminotransferase (ALT/SGPT) 25 Alkaline Phosphatase 71 Total Protein 6.2 Albumin 2.7 L Globulin 3.50 H Albumin/Globulin Ratio 0.77 Medications Current Medications Ondansetron HCl (Zofran Inj) 4 mg Q6H PRN IV NAUSEA AND/OR VOMITING; Start 08/10/18 at 18:00 Ipratropium [place] (Atrovent Hfa) 4 puff Q4H RESP THERAPY INH Last administered on 08/12/18 08:09; Admin Dose 4 PUFF; Start 08/10/18 at 21:00 Ipratropium [place] (Atrovent Hfa) 4 puff Q2H RESP THERAPY PRN INH SHORTNESS OF BREATH; Start 08/10/18 at 18:00 Acetaminophen (Tylenol Liquid) 650 mg Q6H PRN PO PAIN LEVEL 1-3 OR FEVER; Start 08/10/18 at 18:00 Morphine Sulfate (morphine) 2 mg Q4H PRN IV PAIN LEVEL 7-10 Last administered on 08/12/18 08:26; Admin Dose 2 MG; Start 08/10/18 at 18:00 Pantoprazole (Protonix Iv) 40 mg DAILY@06 IV Last administered on 08/12/18 05:44; Admin Dose 40 MG; Start 08/11/18 at 06:00 Heparin Sodium (Porcine) (Heparin (5000 Units/1ml)) 5,000 unit Q12 SC Last administered on 08/12/18 08:34; Admin Dose 5,000 UNIT; Start 08/10/18 at 21:00 Lorazepam (Ativan) 0.5 mg Q6H PRN IV PRN Last administered on 08/11/18at 22:04; Admin Dose 0.5 MG; Start 08/11/18 at 00:00 Piperacillin Sod/ Tazobactam Sod 100 ml @ 200 mls/hr Q6 IVPB Last administered on 08/12/18at 05:45; Admin Dose 200 MLS/HR; Start 08/11/18 at 11:00 Norepinephrine 250 ml @ 1.875 mls/ hr TITRATE IV ; Start 08/12/18 at 08:00 Dextrose/Sodium Chloride 1,000 ml @ 100 mls/hr Q10H IV ; Start 08/12/18 at 09:30 Assessment/Plan Hospital Course (Demo Recall) IMPRESSION AND PLAN: 1. Likely health-care associated pneumonia versus aspiration. 2. Chronic respiratory failure with tracheostomy. 3. Cavitating lung disease. 4. Medication noncompliance. 5. Status post septic shock secondary to above. 6. Renal insufficiency, likely acute tubular necrosis injury. THE PATIENT WILL REQUIRE: 1. Continue volume resuscitation. 2. Transfusion of packed red blood cells for anemia. 3. DC mechanical ventilation 4. Broad-spectrum antibiotics. 5. Speech therapy eval and advance diet Probably stable to transfer to telemetry later this afternoon. Critical care time 40 minutes. VAUGHN NICHOLS MD, [facility] Aug 12, 2018 09:54
[2018-08-12] MEDS: DEXTROSE 5%-0.45% NACL 1,000 ML IV SCH ×2 (09:55→18:52)
--- NOTE | 2018-08-12 10:36 | PN ---
Date/Time of Note Date/Time of Note DATE: 08/12/18 TIME: 10:33 Objective Vitals Vital Signs Date Temp Pulse Resp B/P (MAP) Pulse Ox O2 O2 Flow FiO2 Time Delivery Rate 08/12/18 81 28 116/60 100 Trach 10:30 (78) Collar 08/12/18 98.0 08:00 08/12/18 30 08:00 Intake and Output 08/11/18 08/11/18 08/12/18 1515:00 23:00 07:00 IntakeIntake Total 520.56 ml 874.9975 ml 1013.600 ml OutputOutput Total 500 ml 415 ml 245 ml BalanceBalance 20.56 ml 459.9975 ml 768.600 ml Results Result Diagram: 08/12/18 0415 08/12/18 0415 Medications Medications Current Medications Ondansetron HCl (Zofran Inj) 4 mg Q6H PRN IV NAUSEA AND/OR VOMITING; Start 08/10/18 at 18:00 Ipratropium [place] (Atrovent Hfa) 4 puff Q4H RESP THERAPY INH Last administered on 08/12/18 08:09; Admin Dose 4 PUFF; Start 08/10/18 at 21:00 Ipratropium [place] (Atrovent Hfa) 4 puff Q2H RESP THERAPY PRN INH SHORTNESS OF BREATH; Start 08/10/18 at 18:00 Acetaminophen (Tylenol Liquid) 650 mg Q6H PRN PO PAIN LEVEL 1-3 OR FEVER; Start 08/10/18 at 18:00 Morphine Sulfate (morphine) 2 mg Q4H PRN IV PAIN LEVEL 7-10 Last administered on 08/12/18 08:26; Admin Dose 2 MG; Start 08/10/18 at 18:00 Pantoprazole (Protonix Iv) 40 mg DAILY@06 IV Last administered on 08/12/18 05:44; Admin Dose 40 MG; Start 08/11/18 at 06:00 Heparin Sodium (Porcine) (Heparin (5000 Units/1ml)) 5,000 unit Q12 SC Last administered on 08/12/18 08:34; Admin Dose 5,000 UNIT; Start 08/10/18 at 21:00 Lorazepam (Ativan) 0.5 mg Q6H PRN IV PRN Last administered on 4/22/19at 22:04; Admin Dose 0.5 MG; Start 08/11/18 at 00:00 Piperacillin Sod/ Tazobactam Sod 100 ml @ 200 mls/hr Q6 IVPB Last administered on 08/12/18at 05:45; Admin Dose 200 MLS/HR; Start 08/11/18 at 11:00 Norepinephrine 250 ml @ 1.875 mls/ hr TITRATE IV ; Start 08/12/18 at 08:00 Dextrose/Sodium Chloride 1,000 ml @ 100 mls/hr Q10H IV Last administered on 08/12/18at 09:55; Admin Dose 100 MLS/HR; Start 08/12/18 at 09:30 VTE Prophylaxis Risk score (from Ns)>0 risk: 9 SCD applied (from Ns): Yes Lines/Catheters IV Catheter Type: Bliss in Place: Yes Cont'd bliss catheter reason: terminal illness/intractable pain Assessment/Plan Hospital Course Subjective Patient continues to improve, Levophed has now been off for 1 hour Objective Physical exam General: Patient is laying in bed and answers questions appropriately but slowly, trach to vent Mentation: Patient is alert and oriented somewhat Head: Normocephalic atraumatic Eyes: EOMI, pupils reactive to light Neck: Supple, nontender, midline Respiratory: Clear to auscultation bilaterally Cardiovascular: regular rate, no obvious murmurs Gastrointestinal: non-tender to palpation, bowel sounds heard. Neurological: Moves all extremities spontaneously but weak Skin: No new skin lesions Assessment and plan Acute hypoxic respiratory failure -Likely secondary to dislodged cannula and aspiration pneumonia -On vent for now, pulmonology to attempt weaning off vent -Pulmonology following -Patient baseline is trach to air -Pulmonology is very familiar with this patient Acute encephalopathy, resolving significantly -Continues to improve daily -Patient able to follow all commands however appears very weak -Likely secondary to pneumonia and sepsis -Patient improving, will monitor Septic shock, resolved -Patient off pressors since this morning -Secondary likely due to pneumonia -IV antibiotic -ID on board -Blood cultures pending Right-sided pneumonia -Likely aspiration due to decompensation at home -IV antibiotic -Infectious disease on board Acute kidney injury -Patient having normal kidney function a few weeks ago when admitted, nephrology on board -Continue IV hydration -Further recommendations per nephrology History of cystic lung disease -Pulmonology well aware of patient's condition -Breathing treatments as needed -Please wean off vent as able pulmonology History of COPD -Manage as per pulmonology Anemia -We will closely monitor and transfuse as needed, no overt signs of GI bleed -Patient was given a unit of packed red blood cells yesterday, however patient's hemoglobin remains the same, this is highly likely due to patient's iron deficiency anemia and hemodilution as patient was dehydrated upon arrival. No suspected source of GI bleed, fecal occult is pending, however will give another unit of red blood cells today to optimize patient -After speaking with specialists, since giving iron load with yesterday's RBC and 2 days packed RBC, will recommend oral supplementation at discharge. Disposition -More than 40 minutes of medical care time was spent on this encounter -Pulmonology and nephrology recommendations appreciated -Titrate off vent when able RAUL CRANE Aug 12, 2018 10:36
--- NOTE | 2018-08-12 14:28 | CONS ---
Assessment/Plan Assessment/Plan Hospital Course (Demo Recall) Patient is alert looks comfortable undergoing swallow evaluation he is in no distress no fevers overnight Indwelling tracheostomy WBC 6.2 H&H 7.3 and 23.8 platelets 285 neutrophils 76 BUN 12 creatinine 1.25 Blood and urine cultures negative, MRSA swab positive Chest x-ray this morning revealed no significant change. Right perihilar and right lower lobe infiltrates Antimicrobials: Zosyn Physical examination: This is a chronically ill appearing elderly - [place] man who is alert in no distress head atraumatic normocephalic sclera nonicteric vehicle mucosa dry neck is supple chest rise symmetrical breath sounds with scattered rhonchi. Heart: S1-S2. Abdomen soft bowel sounds present. Assessment: 1. Acute on chronic respiratory failure 2. Healthcare associated pneumonia possibly aspiration 3. MRSA nares colonization 4. Cavitating lung disease 5. Anemia Plan: Patient is stable, will add doxycycline and topical Bactroban, continue on current antibiotics, follow pulmonary recommendations Consultation Date/Type/Reason Admit Date/Time Aug 10, 2018 at 17:36 Initial Consult Date Type of Consult id Date/Time of Note DATE: 08/12/18 TIME: 14:27 Exam/Review of Systems Exam Vitals Vital Signs Date Temp Pulse Resp B/P (MAP) Pulse Ox O2 O2 Flow FiO2 Time Delivery Rate 08/12/18 78 12:00 08/12/18 8.0 35 11:30 08/12/18 28 116/60 100 Trach 10:30 (78) Collar 08/12/18 98.0 08:00 Intake and Output 08/11/18 08/11/18 08/12/18 1515:00 23:00 07:00 IntakeIntake Total 520.56 ml 874.9975 ml 1013.600 ml OutputOutput Total 500 ml 415 ml 245 ml BalanceBalance 20.56 ml 459.9975 ml 768.600 ml Results Result Diagram: 08/12/18 0415 08/12/18 0415 Results 24hrs Laboratory Tests Test 08/11/18 23:55 08/12/18 04:15 Urine Color YELLOW Urine Clarity CLEAR Urine pH 6.0 Urine Specific Purchase 1.020 Urine Ketones 1+ H Urine Nitrite NEGATIVE Urine Bilirubin NEGATIVE Urine Urobilinogen NEGATIVE Urine Leukocyte Esterase NEGATIVE Urine Hemoglobin NEGATIVE Urine Random Creatinine 138.20 Urine Random Sodium 159 H Urine Glucose NEGATIVE Urine Total Protein 43.0 H White Blood Count 6.2 Red Blood Count 3.10 L Hemoglobin 7.3 L Hematocrit 23.8 L Mean Corpuscular Volume 76.8 L Mean Corpuscular Hemoglobin 23.5 L Mean Corpuscular Hemoglobin Concent 30.7 L Red Cell Distribution Width 18.9 H Platelet Count 285 Mean Platelet Volume 10.6 H Immature Granulocytes % 0.600 H Neutrophils % 76.0 Lymphocytes % 10.4 L Monocytes % 11.7 H Eosinophils % 1.0 Basophils % 0.3 Nucleated Red Blood Cells % 0.0 Immature Granulocytes # 0.040 H Neutrophils # 4.7 Lymphocytes # 0.6 L Monocytes # 0.7 Eosinophils # 0.1 Basophils # 0.0 Nucleated Red Blood Cells # 0.0 Sodium Level 144 Potassium Level 3.5 Chloride Level 113 H Carbon Dioxide Level 24 Anion Gap 7 Blood Urea Nitrogen 12 Creatinine 1.25 H Est Glomerular Filtrat Rate mL/min > 60 Glucose Level 73 # Calcium Level 8.5 Total Bilirubin 0.5 Direct Bilirubin 0.00 Indirect Bilirubin 0.5 Aspartate Amino Transf (AST/SGOT) 56 H Alanine Aminotransferase (ALT/SGPT) 25 Alkaline Phosphatase 71 Total Protein 6.2 Albumin 2.7 L Globulin 3.50 H Albumin/Globulin Ratio 0.77 Medications Medication Current Medications Ondansetron HCl (Zofran Inj) 4 mg Q6H PRN IV NAUSEA AND/OR VOMITING; Start 08/10/18 at 18:00 Acetaminophen (Tylenol Liquid) 650 mg Q6H PRN PO PAIN LEVEL 1-3 OR FEVER; Start 08/10/18 at 18:00 Morphine Sulfate (morphine) 2 mg Q4H PRN IV PAIN LEVEL 7-10 Last administered on 08/12/18at 13:42; Admin Dose 2 MG; Start 08/10/18 at 18:00 Pantoprazole (Protonix Iv) 40 mg DAILY@06 IV Last administered on 08/12/18at 05:44; Admin Dose 40 MG; Start 08/11/18 at 06:00 Heparin Sodium (Porcine) (Heparin (5000 Units/1ml)) 5,000 unit Q12 SC Last administered on 08/12/18at 08:34; Admin Dose 5,000 UNIT; Start 08/10/18 at 21:00 Lorazepam (Ativan) 0.5 mg Q6H PRN IV PRN Last administered on 08/11/18at 22:04; Admin Dose 0.5 MG; Start 08/11/18 at 00:00 Piperacillin Sod/ Tazobactam Sod 100 ml @ 200 mls/hr Q6 IVPB Last administered on 08/12/18at 13:41; Admin Dose 200 MLS/HR; Start 08/11/18 at 11:00 Norepinephrine 250 ml @ 1.875 mls/ hr TITRATE IV ; Start 08/12/18 at 08:00 Dextrose/Sodium Chloride 1,000 ml @ 100 mls/hr Q10H IV Last administered on 08/12/18at 09:55; Admin Dose 100 MLS/HR; Start 08/12/18 at 09:30 Albuterol/ Ipratropium (Duoneb) 3 ml Q6H RESP THERAPY HHN ; Start 08/12/18 at 14:00 PATEL DUTTA NP Aug 12, 2018 14:28
[2018-08-12] MEDS: ALBUTEROL/IPRATROPIUM (NEB) 3 ML AMP HHN SCH ×2 (14:44→21:11)
[2018-08-12] MEDS: LORAZEPAM 2 MG INJ IV PRN (15:49)
[2018-08-12] MEDS: DOXYCYCLINE 100 MG in SOD CHLORIDE 0.9% 250 ML IVPB SCH (15:50)
[2018-08-12] MEDS: MUPIROCIN 2% 22 GM OINT TOP SCH (21:03)
[2018-08-13] VITALS (23 sets, daily range): BP systolic 91–164; BP diastolic 57–104; PULSE 68–103; RESP 9–39
[2018-08-13] MEDS ORDERED: DEXTROSE 50% 50 ML SYRINGE ONE (00:27)
[2018-08-13] MEDS: PIPER-TAZO 3.375 GM IV (PMX) 100 ML IVPB SCH ×4 (00:45→17:53)
[2018-08-13] MEDS: LORAZEPAM 2 MG INJ IV PRN ×3 (00:50→21:12)
[2018-08-13] MEDS: ALBUTEROL/IPRATROPIUM (NEB) 3 ML AMP HHN SCH ×4 (01:41→19:51)
[2018-08-13] MEDS: DOXYCYCLINE 100 MG in SOD CHLORIDE 0.9% 250 ML IVPB SCH ×3 (02:13→21:11)
[2018-08-13] MEDS: morphine 2 MG INJ IV PRN ×6 (03:34→23:19)
[2018-08-13] MEDS: PANTOPRAZOLE 40 MG INJ IV SCH (05:43)
--- NOTE | 2018-08-13 08:12 | CONS ---
Consult Date/Type/Reason Admit Date/Time Aug 10, 2018 at 17:36 Initial Consult Date Type of Consult Pulmonary Date/Time of Note DATE: 08/13/18 TIME: 08:11 Subjective Patient comfortable this morning. Decreased hemoptysis no respiratory distress on ventilator. Awake alert off vasopressors. Objective Vital Signs Date Temp Pulse Resp B/P (MAP) Pulse Ox O2 O2 Flow FiO2 Time Delivery Rate 08/13/18 74 27 106/66 100 Trach 9.0 06:00 (79) Collar 08/13/18 35 04:44 08/13/18 97.9 04:00 Intake and Output 08/12/18 08/12/18 08/13/18 1515:00 23:00 07:00 IntakeIntake Total 901.875 ml 1500 ml 1050 ml OutputOutput Total 335 ml 510 ml 525 ml BalanceBalance 566.875 ml 990 ml 525 ml Exam PHYSICAL EXAMINATION: GENERAL: Well-nourished, well-developed gentleman, appears comfortable at rest, no acute distress. VITAL SIGNS: NECK: Trach site clean and intact. CARDIAC: S1, S2, no added sounds or murmurs. CHEST: Diminished air entry bilaterally. ABDOMEN: Soft, nontender. No guarding or rebound. EXTREMITIES: No cyanosis, clubbing, or edema. NEUROLOGIC: Grossly intact. No focal deficits. Vent Setting Ventilator Support Mode: AC Fraction of Inspired Oxygen pe: 35 Positive End Expiratory Pressu: 5.0 Results/Medications Result Diagram: 08/13/18 0430 08/13/18 0430 Results 24 hrs Laboratory Tests Test 08/13/18 04:30 08/13/18 04:58 White Blood Count 4.8 # Red Blood Count 3.48 L Hemoglobin 8.4 L Hematocrit 27.7 L Mean Corpuscular Volume 79.6 L Mean Corpuscular Hemoglobin 24.1 L Mean Corpuscular Hemoglobin Concent 30.3 L Red Cell Distribution Width 18.8 H Platelet Count 287 Mean Platelet Volume 10.4 Immature Granulocytes % 0.400 Neutrophils % 60.4 Lymphocytes % 20.4 Monocytes % 13.2 H Eosinophils % 5.0 Basophils % 0.6 Nucleated Red Blood Cells % 0.0 Immature Granulocytes # 0.020 Neutrophils # 2.9 Lymphocytes # 1.0 Monocytes # 0.6 Eosinophils # 0.2 Basophils # 0.0 Nucleated Red Blood Cells # 0.0 Sodium Level 144 Potassium Level 3.5 Chloride Level 115 H Carbon Dioxide Level 25 Anion Gap 4 L Blood Urea Nitrogen 7 Creatinine 1.04 Est Glomerular Filtrat Rate mL/min > 60 Glucose Level 81 Calcium Level 8.6 Phosphorus Level 3.3 Magnesium Level 1.7 Total Bilirubin 0.2 Direct Bilirubin 0.00 Indirect Bilirubin 0.2 Aspartate Amino Transf (AST/SGOT) 46 Alanine Aminotransferase (ALT/SGPT) 28 Alkaline Phosphatase 62 Total Protein 6.0 L Albumin 2.6 L Globulin 3.40 H Albumin/Globulin Ratio 0.76 Lab Scanned Report BLOOD TRANSFUSION Medications Current Medications Ondansetron HCl (Zofran Inj) 4 mg Q6H PRN IV NAUSEA AND/OR VOMITING; Start 08/10/18 at 18:00 Acetaminophen (Tylenol Liquid) 650 mg Q6H PRN PO PAIN LEVEL 1-3 OR FEVER; Start 08/10/18 at 18:00 Morphine Sulfate (morphine) 2 mg Q4H PRN IV PAIN LEVEL 7-10 Last administered on 08/13/18at 07:12; Admin Dose 2 MG; Start 08/10/18 at 18:00 Pantoprazole (Protonix Iv) 40 mg DAILY@06 IV Last administered on 08/13/18at 05:43; Admin Dose 40 MG; Start 08/11/18 at 06:00 Heparin Sodium (Porcine) (Heparin (5000 Units/1ml)) 5,000 unit Q12 SC Last administered on 08/12/18at 21:06; Admin Dose 5,000 UNIT; Start 08/10/18 at 21:00 Lorazepam (Ativan) 0.5 mg Q6H PRN IV PRN Last administered on 08/13/18at 00:50; Admin Dose 0.5 MG; Start 08/11/18 at 00:00 Piperacillin Sod/ Tazobactam Sod 100 ml @ 200 mls/hr Q6 IVPB Last administered on 08/13/18at 05:44; Admin Dose 200 MLS/HR; Start 08/11/18 at 11:00 Norepinephrine 250 ml @ 1.875 mls/ hr TITRATE IV ; Start 08/12/18 at 08:00 Dextrose/Sodium Chloride 1,000 ml @ 40 mls/hr Q24H IV Last administered on 08/12/18at 18:52; Admin Dose 100 MLS/HR; Start 08/12/18 at 09:30 Albuterol/ Ipratropium (Duoneb) 3 ml Q6H RESP THERAPY HHN Last administered on 08/13/18at 01:41; Admin Dose 3 ML; Start 08/12/18 at 14:00 Doxycycline Hyclate 100 mg/ Sodium Chloride 250 ml @ 250 mls/hr Q12 IVPB Last administered on 08/13/18at 02:13; Admin Dose 250 MLS/HR; Start 08/12/18 at 16:00 Mupirocin (Bactroban) 1 applic BID TOP Last administered on 08/12/18at 21:03; Admin Dose 1 APPLIC; Start 08/12/18 at 21:00 Ferric Sodium Gluconate Complex 125 mg/Sodium Chloride 110 ml @ 110 mls/hr DAILY@1300 IVPB ; Start 08/13/18 at 13:00; Stop 08/17/18 at 13:59 Assessment/Plan Hospital Course (Demo Recall) IMPRESSION AND PLAN: 1. Likely health-care associated pneumonia versus aspiration. 2. Chronic respiratory failure with tracheostomy. 3. Cavitating lung disease. 4. Medication noncompliance. 5. Status post septic shock secondary to above. 6. Renal insufficiency, likely acute tubular necrosis injury. Now improved. Plan 1. Decrease IV fluids 2. Monitor H&H 3. DC mechanical ventilation 4. Broad-spectrum antibiotics. Consider de-escalation soon 5. Speech therapy eval and advance diet Stable for transfer to telemetry. Critical care time 40 minutes. Anticipate discharge tomorrow. VAUGHN NICHLOS MD, [facility] Aug 13, 2018 08:12
--- NOTE | 2018-08-13 08:13 | PN ---
DATE: 08/13/2018 SUBJECTIVE: The patient is in serious, but stable condition. The patient is currently off ventilato ry support. No other acute events noted. No hemoptysis, hematemesis or hematochezia. OBJECTIVE: VITAL SIGNS: Blood pressure is 106/66, respirations 27, pulse 74, temperature 98.6. HEENT: Head is normocephalic. NECK: Supple. HEART: Regular rate. LUNGS: Show diminished breath sounds at the base. ABDOMEN: Soft, nontender to palpation without rebound or guarding. EXTREMITIES: Negative for clubbing, cyanosis. Positive edema. DERMATOLOGIC: No rashes. MUSCULOSKELETAL: No joint effusion. NEUROLOGIC: No change in exam. MEDICATIONS: The patient's medications have been reviewed. LABORATORY DATA: Reviewed. IMAGING STUDIES: Reviewed. ASSESSMENT AND PLAN: 1. Nonoliguric acute kidney injury with previously normal baseline creatinine. Etiology of acute ki dney injury is secondary to hemodynamic and sepsis. The patient's renal function has improved. Cont inue current treatment plans, supportive care, renally dose all medicines. 2. Anemia with evidence of iron deficiency. The patient will be started on IV iron. We will monito r hemoglobin and hematocrit levels. 3. Mineral bone disorder, monitor calcium and phosphorus levels. 4. Septic shock. Etiology is felt to be secondary to pneumonia. The patient is currently on presso r support. Continue antibiotic therapy. We will deescalate IV fluids. 5. Ventilator-dependent respiratory failure. Vent settings and ABG was reviewed. Continue to monit or. 6. Dysphagia, consider resuming feeding. 7. Acute encephalopathy, etiology is toxic metabolic. 8. History of chronic obstructive pulmonary disease. Continue current medical management. 9. History of cystic lung disease. Continue to monitor. Dictated By: INES MOREIRA DO NR/NTS Conf#: [id number] DID#: [id number] CC: INES MOREIRA DO; RAUL CRANE MD; FRANKO SAUCEDA MD;*EndCC*
[2018-08-13] MEDS: MUPIROCIN 2% 22 GM OINT TOP SCH ×2 (08:44→20:31)
[2018-08-13] MEDS: HEPARIN 5,000 UNIT/1 ML VIAL SC SCH ×2 (08:45→20:33)
[2018-08-13] MEDS: DEXTROSE 5%-0.45% NACL 1,000 ML IV SCH (08:58)
--- NOTE | 2018-08-13 10:30 | PN ---
Date/Time of Note Date/Time of Note DATE: 08/13/18 TIME: 10:28 Objective Vitals Vital Signs Date Temp Pulse Resp B/P (MAP) Pulse Ox O2 O2 Flow FiO2 Time Delivery Rate 08/13/18 76 21 121/70 100 Trach 6.0 09:00 (87) Collar 08/13/18 35 08:30 08/13/18 97.7 08:00 Intake and Output 08/12/18 08/12/18 08/13/18 1515:00 23:00 07:00 IntakeIntake Total 901.875 ml 1500 ml 1050 ml OutputOutput Total 335 ml 510 ml 525 ml BalanceBalance 566.875 ml 990 ml 525 ml Results Result Diagram: 08/13/1842908/13/18 043 Medications Medications Current Medications Ondansetron HCl (Zofran Inj) 4 mg Q6H PRN IV NAUSEA AND/OR VOMITING; Start 08/10/18 at 18:00 Acetaminophen (Tylenol Liquid) 650 mg Q6H PRN PO PAIN LEVEL 1-3 OR FEVER; Start 08/10/18 at 18:00 Morphine Sulfate (morphine) 2 mg Q4H PRN IV PAIN LEVEL 7-10 Last administered on 08/13/18at 07:12; Admin Dose 2 MG; Start 08/10/18 at 18:00 Pantoprazole (Protonix Iv) 40 mg DAILY@06 IV Last administered on 08/13/18at 05:43; Admin Dose 40 MG; Start 08/11/18 at 06:00 Heparin Sodium (Porcine) (Heparin (5000 Units/1ml)) 5,000 unit Q12 SC Last administered on 08/13/18at 08:45; Admin Dose 5,000 UNIT; Start 08/10/18 at 21:00 Lorazepam (Ativan) 0.5 mg Q6H PRN IV PRN Last administered on 08/13/18at 00:50; Admin Dose 0.5 MG; Start 08/11/18 at 00:00 Piperacillin Sod/ Tazobactam Sod 100 ml @ 200 mls/hr Q6 IVPB Last administered on 08/13/18at 05:44; Admin Dose 200 MLS/HR; Start 08/11/18 at 11:00 Norepinephrine 250 ml @ 1.875 mls/ hr TITRATE IV ; Start 08/12/18 at 08:00 Dextrose/Sodium Chloride 1,000 ml @ 40 mls/hr Q24H IV Last administered on 08/13/18at 08:58; Admin Dose 40 MLS/HR; Start 08/12/18 at 09:30 Albuterol/ Ipratropium (Duoneb) 3 ml Q6H RESP THERAPY HHN Last administered on 08/13/18at 08:32; Admin Dose 3 ML; Start 08/12/18 at 14:00 Doxycycline Hyclate 100 mg/ Sodium Chloride 250 ml @ 250 mls/hr Q12 IVPB Last administered on 08/13/18at 08:44; Admin Dose 250 MLS/HR; Start 08/12/18 at 16:00 Mupirocin (Bactroban) 1 applic BID TOP Last administered on 08/13/18at 08:44; Admin Dose 1 APPLIC; Start 08/12/18 at 21:00 Ferric Sodium Gluconate Complex 125 mg/Sodium Chloride 110 ml @ 110 mls/hr DAILY@1300 IVPB ; Start 08/13/18 at 13:00; Stop 08/17/18 at 13:59 VTE Prophylaxis Risk score (from Ns)>0 risk: 9 SCD applied (from [facility]): Yes Lines/Catheters IV Catheter Type: Atkinson in Place: No Assessment/Plan Hospital Course Subjective Patient continues to improve, wants to eat, still with lots of secretions Objective Physical exam General: Patient is laying in bed and answers questions appropriately but slowly, trach to vent Mentation: Patient is alert and oriented somewhat Head: Normocephalic atraumatic Eyes: EOMI, pupils reactive to light Neck: Supple, nontender, midline Respiratory: Clear to auscultation bilaterally Cardiovascular: regular rate, no obvious murmurs Gastrointestinal: non-tender to palpation, bowel sounds heard. Neurological: Moves all extremities spontaneously but weak Skin: No new skin lesions Assessment and plan Acute hypoxic respiratory failure -Likely secondary to dislodged cannula and aspiration pneumonia -Weaned off vent -Pulmonology following -Patient baseline is trach to air -Pulmonology is very familiar with this patient -Patient still with significant amount of secretions Acute encephalopathy, resolving significantly -Continues to improve daily -Patient able to follow all commands however appears very weak -Likely secondary to pneumonia and sepsis -Patient improving, will monitor Septic shock, resolved -Patient off pressors since this morning -Secondary likely due to pneumonia -IV antibiotic -ID on board -Blood cultures pending Right-sided pneumonia -Likely aspiration due to decompensation at home -IV antibiotic -Infectious disease on board Acute kidney injury -Patient having normal kidney function a few weeks ago when admitted, nephrology on board -Continue IV hydration -Further recommendations per nephrology History of cystic lung disease -Pulmonology well aware of patient's condition -Breathing treatments as needed -Still with secretions History of COPD -Manage as per pulmonology Anemia -We will closely monitor and transfuse as needed, no overt signs of GI bleed -Currently hemoglobin stable -Iron supplementation per nephrology Disposition -More than 40 minutes of medical care time was spent on this encounter -Pulmonology and nephrology recommendations appreciated -Okay for downgrade to telemetry RAUL CRANE Aug 13, 2018 10:30
[2018-08-13] MEDS: SOD FERRIC GLUC COMPLX 125 MG in SOD CHLORIDE 0.9% 100 ML IVPB SCH (14:12)
--- NOTE | 2018-08-13 14:58 | CONS ---
Assessment/Plan Assessment/Plan Hospital Course (Demo Recall) No events no fevers patient looks comfortable WBC 4.8 no shift no bands BUN 7 creatinine 1.04 Sputum culture pending Antimicrobials: Zosyn, doxycycline, topical Bactroban Indwelling: Tracheostomy Blood and urine cultures negative, MRSA swab positive Chest x-ray this morning revealed no significant change. Right perihilar and right lower lobe infiltrates Physical examination: This is a chronically ill appearing elderly - [place] man who is alert in no distress head atraumatic normocephalic sclera nonicteric vehicle mucosa dry neck is supple chest rise symmetrical breath soun ds with scattered rhonchi. Heart: S1-S2. Abdomen soft bowel sounds present. Assessment: 1. Acute on chronic respiratory failure 2. Healthcare associated pneumonia possibly aspiration 3. MRSA nares colonization 4. Cavitating lung disease 5. Anemia Plan: Remains stable, continue antibiotics, pending video swallow evaluation Consultation Date/Type/Reason Admit Date/Time Aug 10, 2018 at 17:36 Initial Consult Date Type of Consult id Date/Time of Note DATE: 08/13/18 TIME: 14:57 Exam/Review of Systems Exam Vitals Vital Signs Date Temp Pulse Resp B/P (MAP) Pulse Ox O2 O2 Flow FiO2 Time Delivery Rate 08/13/18 89 12:00 08/13/18 100 8.0 35 11:20 08/13/18 21 121/70 Trach 09:00 (87) Collar 08/13/18 97.7 08:00 Intake and Output 08/12/18 08/12/18 08/13/18 1414:59 22:59 06:59 IntakeIntake Total 903.750 ml 1500 ml 1150 ml OutputOutput Total 305 ml 500 ml 600 ml BalanceBalance 598.750 ml 1000 ml 550 ml Results Result Diagram: 08/13/18 0430 08/13/18 0430 Results 24hrs Laboratory Tests Test 08/13/18 04:30 08/13/18 04:58 White Blood Count 4.8 # Red Blood Count 3.48 L Hemoglobin 8.4 L Hematocrit 27.7 L Mean Corpuscular Volume 79.6 L Mean Corpuscular Hemoglobin 24.1 L Mean Corpuscular Hemoglobin Concent 30.3 L Red Cell Distribution Width 18.8 H Platelet Count 287 Mean Platelet Volume 10.4 Immature Granulocytes % 0.400 Neutrophils % 60.4 Lymphocytes % 20.4 Monocytes % 13.2 H Eosinophils % 5.0 Basophils % 0.6 Nucleated Red Blood Cells % 0.0 Immature Granulocytes # 0.020 Neutrophils # 2.9 Lymphocytes # 1.0 Monocytes # 0.6 Eosinophils # 0.2 Basophils # 0.0 Nucleated Red Blood Cells # 0.0 Sodium Level 144 Potassium Level 3.5 Chloride Level 115 H Carbon Dioxide Level 25 Anion Gap 4 L Blood Urea Nitrogen 7 Creatinine 1.04 Est Glomerular Filtrat Rate mL/min > 60 Glucose Level 81 Calcium Level 8.6 Phosphorus Level 3.3 Magnesium Level 1.7 Total Bilirubin 0.2 Direct Bilirubin 0.00 Indirect Bilirubin 0.2 Aspartate Amino Transf (AST/SGOT) 46 Alanine Aminotransferase (ALT/SGPT) 28 Alkaline Phosphatase 62 Total Protein 6.0 L Albumin 2.6 L Globulin 3.40 H Albumin/Globulin Ratio 0.76 Lab Scanned Report BLOOD TRANSFUSION Medications Medication Current Medications Ondansetron HCl (Zofran Inj) 4 mg Q6H PRN IV NAUSEA AND/OR VOMITING; Start 08/10/18 at 18:00 Acetaminophen (Tylenol Liquid) 650 mg Q6H PRN PO PAIN LEVEL 1-3 OR FEVER; Start 08/10/18 at 18:00 Morphine Sulfate (morphine) 2 mg Q4H PRN IV PAIN LEVEL 7-10 Last administered on 08/13/18 11:18; Admin Dose 2 MG; Start 08/10/18 at 18:00 Pantoprazole (Protonix Iv) 40 mg DAILY@06 IV Last administered on 08/13/18at 05:43; Admin Dose 40 MG; Start 08/11/18 at 06:00 Heparin Sodium (Porcine) (Heparin (5000 Units/1ml)) 5,000 unit Q12 SC Last administered on 08/13/18 08:45; Admin Dose 5,000 UNIT; Start 08/10/18 at 21:00 Lorazepam (Ativan) 0.5 mg Q6H PRN IV PRN Last administered on 08/13/18 14:13; Admin Dose 0.5 MG; Start 08/11/18 at 00:00 Piperacillin Sod/ Tazobactam Sod 100 ml @ 200 mls/hr Q6 IVPB Last administered on 08/13/18 11:19; Admin Dose 200 MLS/HR; Start 08/11/18 at 11:00 Norepinephrine 250 ml @ 1.875 mls/ hr TITRATE IV ; Start 08/12/18 at 08:00 Dextrose/Sodium Chloride 1,000 ml @ 40 mls/hr Q24H IV Last administered on 08/13/18at 08:58; Admin Dose 40 MLS/HR; Start 08/12/18 at 09:30 Albuterol/ Ipratropium (Duoneb) 3 ml Q6H RESP THERAPY HHN Last administered on 08/13/18at 08:32; Admin Dose 3 ML; Start 08/12/18 at 14:00 Doxycycline Hyclate 100 mg/ Sodium Chloride 250 ml @ 250 mls/hr Q12 IVPB Last administered on 08/13/18 08:44; Admin Dose 250 MLS/HR; Start 08/12/18 at 16:00 Mupirocin (Bactroban) 1 applic BID TOP Last administered on 08/13/18 08:44; Admin Dose 1 APPLIC; Start 08/12/18 at 21:00 Ferric Sodium Gluconate Complex 125 mg/Sodium Chloride 110 ml @ 110 mls/hr DAILY@1300 IVPB Last administered on 08/13/18 14:12; Admin Dose 110 MLS/HR; Start 08/13/18 at 13:00; Stop 08/17/18 at 13:59 PATEL DUTTA NP Aug 13, 2018 14:58
[2018-08-14] VITALS (14 sets, daily range): BP systolic 129–182; BP diastolic 75–104; PULSE 79–110; RESP 17–25
[2018-08-14] MEDS: PIPER-TAZO 3.375 GM IV (PMX) 100 ML IVPB SCH ×5 (00:19→23:38)
[2018-08-14] MEDS: ALBUTEROL/IPRATROPIUM (NEB) 3 ML AMP HHN SCH ×4 (02:05→21:41)
[2018-08-14] MEDS: morphine 2 MG INJ IV PRN ×5 (02:50→22:46)
[2018-08-14] MEDS: DEXTROSE 5%-0.45% NACL 1,000 ML IV SCH (04:57)
[2018-08-14] MEDS: PANTOPRAZOLE 40 MG INJ IV SCH (05:55)
[2018-08-14] MEDS: DOXYCYCLINE 100 MG in SOD CHLORIDE 0.9% 250 ML IVPB SCH ×2 (09:16→21:03)
[2018-08-14] MEDS: MUPIROCIN 2% 22 GM OINT TOP SCH ×2 (09:16→21:04)
[2018-08-14] MEDS: HEPARIN 5,000 UNIT/1 ML VIAL SC SCH ×2 (09:30→21:30)
--- NOTE | 2018-08-14 09:44 | PN ---
DATE: 08/14/2018 SUBJECTIVE: The patient is stable, on trach mask. No other events noted. No fevers, chills, nausea , or vomiting. The patient was transferred from ICU to telemetry. OBJECTIVE: VITAL SIGNS: Blood pressure is 179/104, respirations 18, pulse 94, temperature 97.2. HEENT: Head is normocephalic. NECK: Supple. HEART: Regular rate. LUNGS: Show diminished breath sounds at the base. ABDOMEN: Soft, nontender to palpation without rebound or guarding. EXTREMITIES: Negative for clubbing, cyanosis, no edema. DERMATOLOGIC: No rashes. MUSCULOSKELETAL: No joint effusion. NEUROLOGIC: No change in exam. MEDICATIONS: The patient's medications have been reviewed. LABORATORY DATA: From 08/13/2018 was reviewed. Laboratory data from 08/14/18 was reviewed. ASSESSMENT AND PLAN: 1. Nonoliguric acute kidney injury with previously normal baseline creatinine. Etiology of acute ki dney injury is secondary to hemodynamics, and sepsis. Renal function is improving, returning back to previous baseline. Continue current treatment plan, supportive care, renally dose all medicines. 2. Anemia with iron deficiency. Continue IV iron. Monitor hemoglobin and hematocrit levels. 3. Mineral bone disorder, monitor calcium and phosphorus levels. 4. Sepsis, status post shock, etiology is secondary to pneumonia. Continue current medical manageme nt, continue antibiotic therapy. 5. Chronic respiratory failure, status post trach. The patient is currently stable on trach mask. Continue to monitor. 6. Dysphagia. Continue modified diet. 7. Acute encephalopathy, etiology is toxic metabolic. 8. History of chronic obstructive pulmonary disease. Continue medical management. 9. History of cystic lung disease. 10. Hypomagnesemia. We will replete with magnesium sulfate. Dictated By: INES MOREIRA DO NR/NTS Conf#: [id number] DID#: [id number] CC: INES MOREIRA DO; RAUL CRANE MD; FRANKO SAUCEDA MD;*EndCC*
[2018-08-14] MEDS ORDERED: MAGNESIUM SULFATE 2 GM/50 ML 50 ML IVPB ONE (10:00)
--- NOTE | 2018-08-14 11:14 | CONS ---
Consult Date/Type/Reason Admit Date/Time Aug 10, 2018 at 17:36 Initial Consult Date Type of Consult Pulmonary Date/Time of Note DATE: 08/14/18 TIME: 11:12 Subjective Patient more alert this morning stable off mechanical ventilation. Intermittent hemoptysis. Objective Vital Signs Date Temp Pulse Resp B/P (MAP) Pulse Ox O2 O2 Flow FiO2 Time Delivery Rate 08/14/18 106 08:11 08/14/18 98 5.0 28 08:10 08/14/18 20 Aerosol 08:10 T Tube 08/14/18 97.2 179/104 07:55 (129) Intake and Output 08/13/18 08/13/18 08/14/18 1515:00 23:00 07:00 IntakeIntake Total 880 ml 840 ml 260 ml OutputOutput Total 800 ml 1300 ml 1000 ml BalanceBalance 80 ml -460 ml -740 ml Exam PHYSICAL EXAMINATION: GENERAL: Well-nourished, well-developed gentleman, appears comfortable at rest, no acute distress. VITAL SIGNS: NECK: Trach site clean and intact. CARDIAC: S1, S2, no added sounds or murmurs. CHEST: Diminished air entry bilaterally. ABDOMEN: Soft, nontender. No guarding or rebound. EXTREMITIES: No cyanosis, clubbing, or edema. NEUROLOGIC: Grossly intact. No focal deficits. Vent Setting Ventilator Support Mode: AC Fraction of Inspired Oxygen pe: 28 Positive End Expiratory Pressu: 5.0 Results/Medications Result Diagram: 08/14/18 0547 08/14/18 0547 Results 24 hrs Laboratory Tests Test 08/13/18 21:00 08/14/18 05:47 Blood Gas Specimen Source Blood arterial Arterial Blood Date Drawn 08/13/2018 9:16:34 PM Arterial Blood pH (Temp corrected) 7.305 L Arterial Blood pCO2 (Temp correct) 47.6 H Arterial Blood pO2 (Temp corrected) 108.3 H Arterial Blood HCO3 23.2 Arterial Blood Base Excess -3.2 L Arterial Blood Oxygen Saturation 97.5 Ravindra Test ACCEPTAB Arterial Blood Gas Puncture Site Right Radial Arterial Blood Carboxyhemoglobin 0.1 Arterial Blood Methemoglobin 0.3 Blood Gas A-a O2 Differential 85.9 H Oxyhemoglobin Percent 97.1 Blood Gas Temperature 37.0 Blood Gas Actual Respiration Rate 24 Blood Gas Modality TRACH COLLAR FiO2 35.0 Blood Gas Notified Whom BAKARI DURÁN Blood Gas Notified Time 08/13/2018 9:28:17 PM White Blood Count 5.9 # Red Blood Count 4.12 L Hemoglobin 9.7 L Hematocrit 32.9 L Mean Corpuscular Volume 79.9 L Mean Corpuscular Hemoglobin 23.5 L Mean Corpuscular Hemoglobin Concent 29.5 L Red Cell Distribution Width 18.7 H Platelet Count 330 Mean Platelet Volume 10.2 Immature Granulocytes % 0.300 Neutrophils % 74.9 Lymphocytes % 12.0 L Monocytes % 8.4 Eosinophils % 3.9 Basophils % 0.5 Nucleated Red Blood Cells % 0.0 Immature Granulocytes # 0.020 Neutrophils # 4.4 Lymphocytes # 0.7 L Monocytes # 0.5 Eosinophils # 0.2 Basophils # 0.0 Nucleated Red Blood Cells # 0.0 Sodium Level 144 Potassium Level 3.6 Chloride Level 111 H Carbon Dioxide Level 28 Anion Gap 5 Blood Urea Nitrogen 5 L Creatinine 0.89 Est Glomerular Filtrat Rate mL/min > 60 Glucose Level 82 Calcium Level 8.8 Phosphorus Level 3.0 Magnesium Level 1.6 L Medications Current Medications Ondansetron HCl (Zofran Inj) 4 mg Q6H PRN IV NAUSEA AND/OR VOMITING; Start 08/10/18 at 18:00 Acetaminophen (Tylenol Liquid) 650 mg Q6H PRN PO PAIN LEVEL 1-3 OR FEVER; Start 08/10/18 at 18:00 Morphine Sulfate (morphine) 2 mg Q4H PRN IV PAIN LEVEL 7-10 Last administered on 08/14/18at 09:51; Admin Dose 2 MG; Start 08/10/18 at 18:00 Pantoprazole (Protonix Iv) 40 mg DAILY@06 IV Last administered on 08/14/18at 05:55; Admin Dose 40 MG; Start 08/11/18 at 06:00 Heparin Sodium (Porcine) (Heparin (5000 Units/1ml)) 5,000 unit Q12 SC Last administered on 08/14/18at 09:30; Admin Dose 5,000 UNIT; Start 08/10/18 at 21:00 Lorazepam (Ativan) 0.5 mg Q6H PRN IV PRN Last administered on 08/13/18at 21:12; Admin Dose 0.5 MG; Start 08/11/18 at 00:00 Piperacillin Sod/ Tazobactam Sod 100 ml @ 200 mls/hr Q6 IVPB Last administered on 08/14/18 05:55; Admin Dose 200 MLS/HR; Start 08/11/18 at 11:00 Dextrose/Sodium Chloride 1,000 ml @ 40 mls/hr Q24H IV Last administered on 08/13/18 08:58; Admin Dose 40 MLS/HR; Start 08/12/18 at 09:30 Albuterol/ Ipratropium (Duoneb) 3 ml Q6H RESP THERAPY HHN Last administered on 08/14/18 08:06; Admin Dose 3 ML; Start 08/12/18 at 14:00 Doxycycline Hyclate 100 mg/ Sodium Chloride 250 ml @ 250 mls/hr Q12 IVPB Last administered on 08/14/18 09:16; Admin Dose 250 MLS/HR; Start 08/12/18 at 16:00 Mupirocin (Bactroban) 1 applic BID TOP Last administered on 08/14/18 09:16; Admin Dose 1 APPLIC; Start 08/12/18 at 21:00 Ferric Sodium Gluconate Complex 125 mg/Sodium Chloride 110 ml @ 110 mls/hr DAILY@1300 IVPB Last administered on 08/13/18 14:12; Admin Dose 110 MLS/HR; Start 08/13/18 at 13:00; Stop 08/17/18 at 13:59 Magnesium Sulfate 50 ml @ 25 mls/hr ONCE ONCE IVPB Last administered on 08/14/18at 10:51; Admin Dose 25 MLS/HR; Start 08/14/18 at 10:00; Stop 08/14/18 at 11:59 Assessment/Plan Hospital Course (Demo Recall) IMPRESSION AND PLAN: 1. Likely health-care associated pneumonia versus aspiration. 2. Chronic respiratory failure with tracheostomy. 3. Cavitating lung disease. Long history of intermittent hemoptysis secondary to cavitating right upper lobe lesion. Patient has declined embolization in the past. 4. Medication noncompliance. 5. Status post septic shock secondary to above. 6. Resolved renal insufficiency, likely acute tubular necrosis injury. Plan 1. Aspiration precautions 2. Monitor H&H 3. Pulmonary toilet 4. Broad-spectrum antibiotics. Consider de-escalation soon 5. Speech therapy eval and advance diet Patient at high risk of multiple readmissions. He has declined shelter facility and boarding care although these would be safe for discharge options for him. Patient adamant he wants to go home to his own environment. DC planning. VAUGHN NICHOLS MD, [facility] Aug 14, 2018 11:14
--- NOTE | 2018-08-14 12:55 | PN ---
Date/Time of Note Date/Time of Note DATE: 08/14/18 TIME: 12:53 Objective Vitals Vital Signs Date Temp Pulse Resp B/P (MAP) Pulse Ox O2 O2 Flow FiO2 Time Delivery Rate 08/14/18 99 18 99 Aerosol 6.0 28 12:40 T Tube 08/14/18 98.8 182/97 11:40 (125) Intake and Output 08/13/18 08/13/18 08/14/18 1515:00 23:00 07:00 IntakeIntake Total 880 ml 840 ml 260 ml OutputOutput Total 800 ml 1300 ml 1000 ml BalanceBalance 80 ml -460 ml -740 ml Results Result Diagram: 08/14/1854608/14/18546 Medications Medications Current Medications Ondansetron HCl (Zofran Inj) 4 mg Q6H PRN IV NAUSEA AND/OR VOMITING; Start 08/10/18 at 18:00 Acetaminophen (Tylenol Liquid) 650 mg Q6H PRN PO PAIN LEVEL 1-3 OR FEVER; Start 08/10/18 at 18:00 Morphine Sulfate (morphine) 2 mg Q4H PRN IV PAIN LEVEL 7-10 Last administered on 08/14/18 09:51; Admin Dose 2 MG; Start 08/10/18 at 18:00 Pantoprazole (Protonix Iv) 40 mg DAILY@06 IV Last administered on 08/14/18 05:55; Admin Dose 40 MG; Start 08/11/18 at 06:00 Heparin Sodium (Porcine) (Heparin (5000 Units/1ml)) 5,000 unit Q12 SC Last administered on 08/14/18 09:30; Admin Dose 5,000 UNIT; Start 08/10/18 at 21:00 Lorazepam (Ativan) 0.5 mg Q6H PRN IV PRN Last administered on 08/13/18 21:12; Admin Dose 0.5 MG; Start 08/11/18 at 00:00 Piperacillin Sod/ Tazobactam Sod 100 ml @ 200 mls/hr Q6 IVPB Last administered on 08/14/18 05:55; Admin Dose 200 MLS/HR; Start 08/11/18 at 11:00 Dextrose/Sodium Chloride 1,000 ml @ 40 mls/hr Q24H IV Last administered on 4/2 4/19at 08:58; Admin Dose 40 MLS/HR; Start 08/12/18 at 09:30 Albuterol/ Ipratropium (Duoneb) 3 ml Q6H RESP THERAPY HHN Last administered on 08/14/18at 08:06; Admin Dose 3 ML; Start 08/12/18 at 14:00 Doxycycline Hyclate 100 mg/ Sodium Chloride 250 ml @ 250 mls/hr Q12 IVPB Last administered on 08/14/18 09:16; Admin Dose 250 MLS/HR; Start 08/12/18 at 16:00 Mupirocin (Bactroban) 1 applic BID TOP Last administered on 08/14/18at 09:16; Admin Dose 1 APPLIC; Start 08/12/18 at 21:00 Ferric Sodium Gluconate Complex 125 mg/Sodium Chloride 110 ml @ 110 mls/hr DAILY@1300 IVPB Last administered on 08/13/18at 14:12; Admin Dose 110 MLS/HR; Start 08/13/18 at 13:00; Stop 08/17/18 at 13:59 VTE Prophylaxis Risk score (from [facility] [place]0 risk: 11 SCD applied (from [facility] [place]): Yes Lines/Catheters IV Catheter Type: Atkinson in Place: No Assessment/Plan Hospital Course Subjective Patient continues to improve, still has secretions and bloody cough which is chronic Objective Physical exam General: Patient is laying in bed and answers questions appropriately but slowly, trach to vent Mentation: Patient is alert and oriented somewhat Head: Normocephalic atraumatic Eyes: EOMI, pupils reactive to light Neck: Supple, nontender, midline Respiratory: Clear to auscultation bilaterally Cardiovascular: regular rate, no obvious murmurs Gastrointestinal: non-tender to palpation, bowel sounds heard. Neurological: Moves all extremities spontaneously but weak Skin: No new skin lesions Assessment and plan Acute hypoxic respiratory failure -Likely secondary to dislodged cannula and aspiration pneumonia -Weaned off vent -Pulmonology following -Patient baseline is trach to air -Pulmonology is very familiar with this patient -Patient still with significant amount of secretions Acute encephalopathy, resolving significantly -Continues to improve daily -Patient able to follow all commands however appears very weak -Likely secondary to pneumonia and sepsis -Patient improving, will monitor Septic shock, resolved -Patient off pressors since this morning -Secondary likely due to pneumonia -IV antibiotic -ID on board -Blood cultures pending Right-sided pneumonia -Likely aspiration due to decompensation at home -IV antibiotic -Infectious disease on board Acute kidney injury -Patient having normal kidney function a few weeks ago when admitted, nephrology on board -Continue IV hydration -Further recommendations per nephrology History of cystic lung disease, with chronic bloody cough -Pulmonology well aware of patient's condition -Breathing treatments as needed -Patient refused embolization for bloody cough on previous hospitalization per pulmonology -Still with secretions History of COPD -Manage as per pulmonology Anemia -We will closely monitor and transfuse as needed, no overt signs of GI bleed -Currently hemoglobin stable -Iron supplementation per nephrology Disposition -Continue IV antibiotics, PT will need to continue to see patient, patient is nowhere near baseline, offered SNF but patient does not want to go to intermediate facility RAUL CRANE Aug 14, 2018 12:55
--- NOTE | 2018-08-14 15:04 | CONS ---
Assessment/Plan Assessment/Plan Hospital Course (Demo Recall) Patient is alert looks comfortable, no fevers Sputum culture growing pseudomonas aeruginosa and gram-negative rods Antimicrobials: Zosyn, doxycycline, topical Bactroban Indwelling: Tracheostomy Blood and urine cultures negative, MRSA swab positive Physical examination: This is a chronically ill appearing elderly - [place] man who is alert in no distress head atraumatic normocephalic sclera nonicteric vehicle mucosa dry neck is supple chest rise symmetrical breath sounds with scattered rhonchi. Heart: S1-S2. Abdomen soft bowel sounds present. Assessment: 1. Acute on chronic respiratory failure 2. Healthcare associated pneumonia possibly aspiration 3. MRSA nares colonization 4. Cavitating lung disease 5. Anemia Plan: Remains stable, continue antibiotics, follow pulmonary recommendations and sputum cultures Consultation Date/Type/Reason Admit Date/Time Aug 10, 2018 at 17:36 Initial Consult Date Type of Consult id Date/Time of Note DATE: 08/14/18 TIME: 15:03 Exam/Review of Systems Exam Vitals Vital Signs Date Temp Pulse Resp B/P (MAP) Pulse Ox O2 O2 Flow FiO2 Time Delivery Rate 08/14/18 99 18 99 Aerosol 6.0 28 12:40 T Tube 08/14/18 98.8 182/97 11:40 (125) Intake and Output 08/13/18 08/13/18 08/14/18 1414:59 22:59 06:59 IntakeIntake Total 940 ml 590 ml 550 ml OutputOutput Total 800 ml 1200 ml 1200 ml BalanceBalance 140 ml -610 ml -650 ml Results Result Diagram: 08/14/18 0547 08/14/18 0547 Results 24hrs Laboratory Tests Test 08/13/18 21:00 08/14/18 05:47 Blood Gas Specimen Source Blood arterial Arterial Blood Date Drawn 08/13/2018 9:16:34 PM Arterial Blood pH (Temp corrected) 7.305 L Arterial Blood pCO2 (Temp correct) 47.6 H Arterial Blood pO2 (Temp corrected) 108.3 H Arterial Blood HCO3 23.2 Arterial Blood Base Excess -3.2 L Arterial Blood Oxygen Saturation 97.5 Ravindra Test ACCEPTAB Arterial Blood Gas Puncture Site Right Radial Arterial Blood Carboxyhemoglobin 0.1 Arterial Blood Methemoglobin 0.3 Blood Gas A-a O2 Differential 85.9 H Oxyhemoglobin Percent 97.1 Blood Gas Temperature 37.0 Blood Gas Actual Respiration Rate 24 Blood Gas Modality TRACH COLLAR FiO2 35.0 Blood Gas Notified Whom BAKARI DURÁN Blood Gas Notified Time 08/13/2018 9:28:17 PM White Blood Count 5.9 # Red Blood Count 4.12 L Hemoglobin 9.7 L Hematocrit 32.9 L Mean Corpuscular Volume 79.9 L Mean Corpuscular Hemoglobin 23.5 L Mean Corpuscular Hemoglobin Concent 29.5 L Red Cell Distribution Width 18.7 H Platelet Count 330 Mean Platelet Volume 10.2 Immature Granulocytes % 0.300 Neutrophils % 74.9 Lymphocytes % 12.0 L Monocytes % 8.4 Eosinophils % 3.9 Basophils % 0.5 Nucleated Red Blood Cells % 0.0 Immature Granulocytes # 0.020 Neutrophils # 4.4 Lymphocytes # 0.7 L Monocytes # 0.5 Eosinophils # 0.2 Basophils # 0.0 Nucleated Red Blood Cells # 0.0 Sodium Level 144 Potassium Level 3.6 Chloride Level 111 H Carbon Dioxide Level 28 Anion Gap 5 Blood Urea Nitrogen 5 L Creatinine 0.89 Est Glomerular Filtrat Rate mL/min > 60 Glucose Level 82 Calcium Level 8.8 Phosphorus Level 3.0 Magnesium Level 1.6 L Medications Medication Current Medications Ondansetron HCl (Zofran Inj) 4 mg Q6H PRN IV NAUSEA AND/OR VOMITING; Start 08/10/18 at 18:00 Acetaminophen (Tylenol Liquid) 650 mg Q6H PRN PO PAIN LEVEL 1-3 OR FEVER; Start 08/10/18 at 18:00 Morphine Sulfate (morphine) 2 mg Q4H PRN IV PAIN LEVEL 7-10 Last administered on 08/14/18at 14:20; Admin Dose 2 MG; Start 08/10/18 at 18:00 Pantoprazole (Protonix Iv) 40 mg DAILY@06 IV Last administered on 08/14/18at 05:55; Admin Dose 40 MG; Start 08/11/18 at 06:00 Heparin Sodium (Porcine) (Heparin (5000 Units/1ml)) 5,000 unit Q12 SC Last administered on 08/14/18at 09:30; Admin Dose 5,000 UNIT; Start 08/10/18 at 21:00 Lorazepam (Ativan) 0.5 mg Q6H PRN IV PRN Last administered on 08/13/18at 21:12; Admin Dose 0.5 MG; Start 08/11/18 at 00:00 Piperacillin Sod/ Tazobactam Sod 100 ml @ 200 mls/hr Q6 IVPB Last administered on 08/14/18 13:26; Admin Dose 200 MLS/HR; Start 08/11/18 at 11:00 Dextrose/Sodium Chloride 1,000 ml @ 40 mls/hr Q24H IV Last administered on 08/13/18 08:58; Admin Dose 40 MLS/HR; Start 08/12/18 at 09:30 Albuterol/ Ipratropium (Duoneb) 3 ml Q6H RESP THERAPY HHN Last administered on 08/14/18 08:06; Admin Dose 3 ML; Start 08/12/18 at 14:00 Doxycycline Hyclate 100 mg/ Sodium Chloride 250 ml @ 250 mls/hr Q12 IVPB Last administered on 08/14/18 09:16; Admin Dose 250 MLS/HR; Start 08/12/18 at 16:00 Mupirocin (Bactroban) 1 applic BID TOP Last administered on 08/14/18 09:16; Admin Dose 1 APPLIC; Start 08/12/18 at 21:00 Ferric Sodium Gluconate Complex 125 mg/Sodium Chloride 110 ml @ 110 mls/hr DAILY@1300 IVPB Last administered on 08/13/18 14:12; Admin Dose 110 MLS/HR; Start 08/13/18 at 13:00; Stop 08/17/18 at 13:59 PATEL DUTTA NP Aug 14, 2018 15:04
[2018-08-14] MEDS ORDERED: GABAPENTIN 300 MG CAP PO ONE (15:30)
[2018-08-14] MEDS: SOD FERRIC GLUC COMPLX 125 MG in SOD CHLORIDE 0.9% 100 ML IVPB SCH (15:41)
[2018-08-14] MEDS: GABAPENTIN 300 MG CAP PO SCH (21:03)
[2018-08-15] VITALS (14 sets, daily range): BP systolic 127–193; BP diastolic 74–101; PULSE 67–101; RESP 18
[2018-08-15] MEDS: ALBUTEROL/IPRATROPIUM (NEB) 3 ML AMP HHN SCH ×4 (01:20→19:20)
[2018-08-15] MEDS: DEXTROSE 5%-0.45% NACL 1,000 ML IV SCH (02:48)
[2018-08-15] MEDS: morphine 2 MG INJ IV PRN ×4 (02:55→20:29)
[2018-08-15] MEDS: PIPER-TAZO 3.375 GM IV (PMX) 100 ML IVPB SCH (05:22)
[2018-08-15] MEDS: PANTOPRAZOLE 40 MG INJ IV SCH (05:22)
[2018-08-15] MEDS: DOXYCYCLINE 100 MG in SOD CHLORIDE 0.9% 250 ML IVPB SCH ×2 (08:20→20:37)
[2018-08-15] MEDS: GABAPENTIN 300 MG CAP PO SCH ×3 (08:21→20:29)
[2018-08-15] MEDS: HEPARIN 5,000 UNIT/1 ML VIAL SC SCH ×2 (08:37→20:49)
[2018-08-15] MEDS: MUPIROCIN 2% 22 GM OINT TOP SCH ×3 (08:38→20:38)
--- NOTE | 2018-08-15 10:07 | PN ---
DATE: 08/15/2018 SUBJECTIVE: The patient is stable. No events overnight. OBJECTIVE: VITAL SIGNS: Blood pressure is 87/86, pulse 74, respiration 18, temperature 97.9. HEENT: Head is normocephalic. NECK: Supple. HEART: Regular rate. LUNGS: Show diminished breath sounds at base. ABDOMEN: Soft, nontender to palpation without rebound or guarding. EXTREMITIES: Negative for clubbing, cyanosis, no edema. DERMATOLOGIC: No rashes. MUSCULOSKELETAL: No joint effusion. NEUROLOGIC: No change in exam. MEDICATIONS: Have been reviewed. LABORATORY DATA: Has been reviewed. ASSESSMENT AND PLAN: 1. Nonoliguric acute kidney injury with previously normal baseline creatinine. Etiology of acute ki dney injury is secondary to hemodynamic sepsis. Renal function is improved. Continue current treatm ent plan, supportive care, renally dose all meds. 2. Anemia with iron deficiency. The patient is completing course of IV iron. Monitor hemoglobin an d hematocrit levels. 3. Mineral bone disorder, monitor calcium and phosphorus levels. 4. Sepsis, status post shock secondary to pneumonia. The patient is completing antibiotic course. 5. Hypernatremia. The patient has a free water deficit approximately 2 liters. Will start the roque ent on D5 water. 6. Chronic respiratory failure, status post tracheostomy, currently stable on trach mask. 7. Dysphagia. Continue modified diet. 8. Acute encephalopathy, etiology toxic metabolic. 9. History of chronic obstructive pulmonary disease. Continue medical management. 10. History of cystic lung disease. 11. Hypomagnesemia. Continue to monitor. Dictated By: INES HENRIQUEZ/NTS Conf#: [id number] DID#: [id number] CC: FRANKO SAUCEDA MD;*EndCC*
[2018-08-15] MEDS: DEXTROSE 5% 1,000 ML IV SCH (10:08)
--- NOTE | 2018-08-15 11:26 | CONS ---
Consult Date/Type/Reason Admit Date/Time Aug 10, 2018 at 17:36 Initial Consult Date Type of Consult Pulmonary Date/Time of Note DATE: 08/15/18 TIME: 11:24 Subjective Comfortable. Stating he wants to go home. Improved hemoptysis. Objective Vital Signs Date Temp Pulse Resp B/P (MAP) Pulse Ox O2 O2 Flow FiO2 Time Delivery Rate 08/15/18 5.0 09:10 08/15/18 74 08:07 08/15/18 97.9 18 187/86 100 07:33 (119) 08/15/18 Aerosol 28 05:07 T Tube Intake and Output 08/14/18 08/14/18 08/15/18 1515:00 23:00 07:00 IntakeIntake Total 350 ml 1150 ml 820 ml OutputOutput Total 600 ml 700 ml BalanceBalance 350 ml 550 ml 120 ml Exam PHYSICAL EXAMINATION: GENERAL: Well-nourished, well-developed gentleman, appears comfortable at rest, no acute distress. VITAL SIGNS: NECK: Trach site clean and intact. CARDIAC: S1, S2, no added sounds or murmurs. CHEST: Diminished air entry bilaterally. ABDOMEN: Soft, nontender. No guarding or rebound. EXTREMITIES: No cyanosis, clubbing, or edema. NEUROLOGIC: Grossly intact. No focal deficits. Vent Setting Ventilator Support Mode: AC Fraction of Inspired Oxygen pe: 28 Positive End Expiratory Pressu: 5.0 Results/Medications Result Diagram: 08/15/18 0513 08/15/18 0513 Results 24 hrs Laboratory Tests Test 08/15/18 05:13 White Blood Count 5.0 Red Blood Count 3.90 L Hemoglobin 9.4 L Hematocrit 30.7 L Mean Corpuscular Volume 78.7 L Mean Corpuscular Hemoglobin 24.1 L Mean Corpuscular Hemoglobin Concent 30.6 L Red Cell Distribution Width 18.6 H Platelet Count 311 Mean Platelet Volume 10.1 Immature Granulocytes % 0.200 Neutrophils % 64.0 Lymphocytes % 18.5 Monocytes % 11.7 H Eosinophils % 5.2 Basophils % 0.4 Nucleated Red Blood Cells % 0.0 Immature Granulocytes # 0.010 Neutrophils # 3.2 Lymphocytes # 0.9 Monocytes # 0.6 Eosinophils # 0.3 Basophils # 0.0 Nucleated Red Blood Cells # 0.0 Sodium Level 145 H Potassium Level 3.5 Chloride Level 109 Carbon Dioxide Level 32 H Anion Gap 4 L Blood Urea Nitrogen 4 L Creatinine 0.70 Est Glomerular Filtrat Rate mL/min > 60 Glucose Level 106 Calcium Level 9.0 Phosphorus Level 3.2 Magnesium Level 1.7 Medications Current Medications Ondansetron HCl (Zofran Inj) 4 mg Q6H PRN IV NAUSEA AND/OR VOMITING; Start 08/10/18 at 18:00 Acetaminophen (Tylenol Liquid) 650 mg Q6H PRN PO PAIN LEVEL 1-3 OR FEVER; Start 08/10/18 at 18:00 Morphine Sulfate (morphine) 2 mg Q4H PRN IV PAIN LEVEL 7-10 Last administered on 08/15/18 10:08; Admin Dose 2 MG; Start 08/10/18 at 18:00 Pantoprazole (Protonix Iv) 40 mg DAILY@06 IV Last administered on 08/15/18 05:22; Admin Dose 40 MG; Start 08/11/18 at 06:00 Heparin Sodium (Porcine) (Heparin (5000 Units/1ml)) 5,000 unit Q12 SC Last administered on 08/15/18 08:37; Admin Dose 5,000 UNIT; Start 08/10/18 at 21:00 Lorazepam (Ativan) 0.5 mg Q6H PRN IV PRN Last administered on 08/13/18 21:12; Admin Dose 0.5 MG; Start 08/11/18 at 00:00 Piperacillin Sod/ Tazobactam Sod 100 ml @ 200 mls/hr Q6 IVPB Last administered on 08/15/18 05:22; Admin Dose 200 MLS/HR; Start 08/11/18 at 11:00 Albuterol/ Ipratropium (Duoneb) 3 ml Q6H RESP THERAPY HHN Last administered on 08/15/18 07:59; Admin Dose 3 ML; Start 08/12/18 at 14:00 Doxycycline Hyclate 100 mg/ Sodium Chloride 250 ml @ 250 mls/hr Q12 IVPB Last administered on 08/15/18 08:20; Admin Dose 250 MLS/HR; Start 08/12/18 at 16:00 Mupirocin (Bactroban) 1 applic BID TOP Last administered on 08/14/18 21:04; Admin Dose 1 APPLIC; Start 4/23/19 at 21:00 Ferric Sodium Gluconate Complex 125 mg/Sodium Chloride 110 ml @ 110 mls/hr DAILY@1300 IVPB Last administered on 08/14/18at 15:41; Admin Dose 110 MLS/HR; Start 08/13/18 at 13:00; Stop 08/17/18 at 13:59 Dextrose 1,000 ml @ 50 mls/hr Q20H IV Last administered on 08/15/18at 10:08; Admin Dose 50 MLS/HR; Start 08/15/18 at 09:00 Gabapentin (Neurontin) 600 mg TID PO ; Start 08/15/18 at 13:00 Assessment/Plan Hospital Course (Demo Recall) IMPRESSION AND PLAN: 1. Likely health-care associated pneumonia versus aspiration. 2. Chronic respiratory failure with tracheostomy. 3. Cavitating lung disease. Long history of intermittent hemoptysis secondary to cavitating right upper lobe lesion. Patient has declined embolization in the past. 4. Medication noncompliance. 5. Status post septic shock secondary to above. 6. Resolved renal insufficiency, likely acute tubular necrosis injury. Plan 1. Aspiration precautions 2. Monitor H&H 3. Pulmonary toilet 4. Broad-spectrum antibiotics. Consider de-escalation soon 5. Speech therapy eval and advance diet Patient at high risk of multiple readmissions. He has declined [facility] facility and boarding care although these would be safe for discharge options for him. Patient adamant he wants to go home to his own environment. VAUGHN NICHOLS MD, [facility] Aug 15, 2018 11:26
[2018-08-15] MEDS ORDERED: GENTAMICIN IV PER PHARMACY XX SCH (12:00)
[2018-08-15] MEDS ORDERED: LABETALOL HCL 20MG INJ IV PRN (12:30)
[2018-08-15] MEDS ORDERED: AMLODIPINE 5 MG TAB PO SCH (12:30)
[2018-08-15] MEDS: SOD FERRIC GLUC COMPLX 125 MG in SOD CHLORIDE 0.9% 100 ML IVPB SCH (12:48)
--- NOTE | 2018-08-15 13:06 | PN ---
Date/Time of Note Date/Time of Note DATE: 08/15/18 TIME: 13:05 Objective Vitals Vital Signs Date Temp Pulse Resp B/P (MAP) Pulse Ox O2 O2 Flow FiO2 Time Delivery Rate 08/15/18 87 12:07 08/15/18 97.8 18 193/101 100 11:48 (131) 08/15/18 5.0 09:10 08/15/18 Aerosol 28 07:59 T Tube Intake and Output 08/14/18 08/14/18 08/15/18 1515:00 23:00 07:00 IntakeIntake Total 350 ml 1150 ml 820 ml OutputOutput Total 600 ml 700 ml BalanceBalance 350 ml 550 ml 120 ml Results Result Diagram: 08/15/1851208/15/18512 Medications Medications Current Medications Ondansetron HCl (Zofran Inj) 4 mg Q6H PRN IV NAUSEA AND/OR VOMITING; Start 08/10/18 at 18:00 Acetaminophen (Tylenol Liquid) 650 mg Q6H PRN PO PAIN LEVEL 1-3 OR FEVER; Start 08/10/18 at 18:00 Morphine Sulfate (morphine) 2 mg Q4H PRN IV PAIN LEVEL 7-10 Last administered on 08/15/18at 10:08; Admin Dose 2 MG; Start 08/10/18 at 18:00 Pantoprazole (Protonix Iv) 40 mg DAILY@06 IV Last administered on 08/15/18at 05:22; Admin Dose 40 MG; Start 08/11/18 at 06:00 Heparin Sodium (Porcine) (Heparin (5000 Units/1ml)) 5,000 unit Q12 SC Last administered on 08/15/18at 08:37; Admin Dose 5,000 UNIT; Start 08/10/18 at 21:00 Lorazepam (Ativan) 0.5 mg Q6H PRN IV PRN Last administered on 08/13/18at 21:12; Admin Dose 0.5 MG; Start 08/11/18 at 00:00 Albuterol/ Ipratropium (Duoneb) 3 ml Q6H RESP THERAPY HHN Last administered on 08/15/18at 07:59; Admin Dose 3 ML; Start 08/12/18 at 14:00 Doxycycline Hyclate 100 mg/ Sodium Chloride 250 ml @ 250 mls/hr Q12 IVPB Last administered on 08/15/18 08:20; Admin Dose 250 MLS/HR; Start 08/12/18 at 16:00 Mupirocin (Bactroban) 1 applic BID TOP Last administered on 08/15/18 12:49; Admin Dose 1 APPLIC; Start 08/12/18 at 21:00 Ferric Sodium Gluconate Complex 125 mg/Sodium Chloride 110 ml @ 110 mls/hr DAILY@1300 IVPB Last administered on 08/15/18 12:48; Admin Dose 110 MLS/HR; Start 08/13/18 at 13:00; Stop 08/17/18 at 13:59 Dextrose 1,000 ml @ 50 mls/hr Q20H IV Last administered on 08/15/18 10:08; Admin Dose 50 MLS/HR; Start 08/15/18 at 09:00 Gabapentin (Neurontin) 600 mg TID PO Last administered on 08/15/18 12:49; Admin Dose 600 MG; Start 08/15/18 at 13:00 Gentamicin Sulfate (Gentamicin Iv Per Pharmacy) GENTAMICIN PER PHARMACY NOTE XX ; Start 08/15/18 at 12:00; Status UNV Colistimethate Sodium (Colistin Inhal) 75 mg BID RESP THERAPY NEB ; Start 08/15/18 at 20:00; Status UNV Labetalol HCl (Labetalol) 10 mg Q4H PRN IV sbp >160 Last administered on 08/15/18 12:48; Admin Dose 10 MG; Start 08/15/18 at 12:30 Amlodipine Besylate (Norvasc) 5 mg DAILY PO ; Start 08/15/18 at 12:30; Status UNV VTE Prophylaxis Risk score (from Nsg)>0 risk: 7 SCD applied (from Nsg): Yes Lines/Catheters IV Catheter Type: Atkinson in Place: No Assessment/Plan Hospital Course Subjective Patient continues to improve, still has secretions and bloody cough which is chronic Objective Physical exam General: Patient is laying in bed and answers questions appropriately but slowly, trach to vent Mentation: Patient is alert and oriented somewhat Head: Normocephalic atraumatic Eyes: EOMI, pupils reactive to light Neck: Supple, nontender, midline Respiratory: Clear to auscultation bilaterally Cardiovascular: regular rate, no obvious murmurs Gastrointestinal: non-tender to palpation, bowel sounds heard. Neurological: Moves all extremities spontaneously but weak Skin: No new skin lesions Assessment and plan Acute hypoxic respiratory failure -Likely secondary to dislodged cannula and aspiration pneumonia -Weaned off vent -Pulmonology following -Patient baseline is trach to air -Pulmonology is very familiar with this patient -Patient still with significant amount of secretions Acute encephalopathy, resolving significantly -Continues to improve daily -Patient able to follow all commands however appears very weak -Likely secondary to pneumonia and sepsis -Patient improving, will monitor Septic shock, resolved -Patient off pressors since this morning -Secondary likely due to pneumonia -IV antibiotic -ID on board -Blood cultures pending Right-sided pneumonia -Likely aspiration due to decompensation at home -IV antibiotic -Infectious disease on board Acute kidney injury -Patient having normal kidney function a few weeks ago when admitted, nephrology on board -Continue IV hydration -Further recommendations per nephrology History of cystic lung disease, with chronic bloody cough -Pulmonology well aware of patient's condition -Breathing treatments as needed -Patient refused embolization for bloody cough on previous hospitalization per pulmonology -Still with secretions History of COPD -Manage as per pulmonology Anemia -We will closely monitor and transfuse as needed, no overt signs of GI bleed -Currently hemoglobin stable -Iron supplementation per nephrology generalized weakness - secondary to above issues - improving Disposition -Continue IV antibiotics, PT will need to continue to see patient, patient is nowhere near baseline, patient believes he can get better in a few days however is open to the idea of [facility] facility if he does not improve well enough in a couple days. RAUL CRANE Aug 15, 2018 13:05
[2018-08-15] MEDS: GENTAMICIN 360 MG in DEXTROSE 5% 100 ML IVPB SCH (15:04)
--- NOTE | 2018-08-15 15:16 | CONS ---
Assessment/Plan Assessment/Plan Hospital Course (Demo Recall) 1245 Patient is awake in no distress, started on pured diet, no fevers overnight. Sputum culture grew multidrug-resistant Pseudomonas and Acinetobacter Antimicrobials: Zosyn, doxycycline, topical Bactroban Indwelling: Tracheostomy Blood and urine cultures negative, MRSA swab positive Physical examination: This is a chronically ill appearing elderly - [place] man who is alert in no distress head atraumatic normocephalic sclera nonicteric vehicle mucosa dry neck is supple chest rise symmetrical breath sounds with scattered rhonchi. Heart: S1-S2. Abdomen soft bowel sounds pr esent. Assessment: 1. Acute on chronic respiratory failure 2. Healthcare associated pneumonia possibly aspiration 3. MRSA nares colonization 4. Cavitating lung disease 5. Anemia Plan: Remains stable, continue doxycycline, change Zosyn to gentamicin and colistin inhalation, continue aspiration precautions Consultation Date/Type/Reason Admit Date/Time Aug 10, 2018 at 17:36 Initial Consult Date Type of Consult id Date/Time of Note DATE: 08/15/18 TIME: 15:15 Exam/Review of Systems Exam Vitals Vital Signs Date Temp Pulse Resp B/P (MAP) Pulse Ox O2 O2 Flow FiO2 Time Delivery Rate 08/15/18 88 18 99 Aerosol 5.0 28 13:31 T Tube 08/15/18 97.8 193/101 11:48 (131) Intake and Output 08/14/18 08/14/18 08/15/18 1515:00 23:00 07:00 IntakeIntake Total 350 ml 1150 ml 820 ml OutputOutput Total 600 ml 700 ml BalanceBalance 350 ml 550 ml 120 ml Results Result Diagram: 08/15/18 0513 08/15/18 0513 Results 24hrs Laboratory Tests Test 08/15/18 05:13 White Blood Count 5.0 Red Blood Count 3.90 L Hemoglobin 9.4 L Hematocrit 30.7 L Mean Corpuscular Volume 78.7 L Mean Corpuscular Hemoglobin 24.1 L Mean Corpuscular Hemoglobin Concent 30.6 L Red Cell Distribution Width 18.6 H Platelet Count 311 Mean Platelet Volume 10.1 Immature Granulocytes % 0.200 Neutrophils % 64.0 Lymphocytes % 18.5 Monocytes % 11.7 H Eosinophils % 5.2 Basophils % 0.4 Nucleated Red Blood Cells % 0.0 Immature Granulocytes # 0.010 Neutrophils # 3.2 Lymphocytes # 0.9 Monocytes # 0.6 Eosinophils # 0.3 Basophils # 0.0 Nucleated Red Blood Cells # 0.0 Sodium Level 145 H Potassium Level 3.5 Chloride Level 109 Carbon Dioxide Level 32 H Anion Gap 4 L Blood Urea Nitrogen 4 L Creatinine 0.70 Est Glomerular Filtrat Rate mL/min > 60 Glucose Level 106 Calcium Level 9.0 Phosphorus Level 3.2 Magnesium Level 1.7 Medications Medication Current Medications Ondansetron HCl (Zofran Inj) 4 mg Q6H PRN IV NAUSEA AND/OR VOMITING; Start 08/10/18 at 18:00 Acetaminophen (Tylenol Liquid) 650 mg Q6H PRN PO PAIN LEVEL 1-3 OR FEVER; Start 08/10/18 at 18:00 Morphine Sulfate (morphine) 2 mg Q4H PRN IV PAIN LEVEL 7-10 Last administered on 08/15/18 10:08; Admin Dose 2 MG; Start 08/10/18 at 18:00 Pantoprazole (Protonix Iv) 40 mg DAILY@06 IV Last administered on 08/15/18 05:22; Admin Dose 40 MG; Start 08/11/18 at 06:00 Heparin Sodium (Porcine) (Heparin (5000 Units/1ml)) 5,000 unit Q12 SC Last administered on 08/15/18 08:37; Admin Dose 5,000 UNIT; Start 08/10/18 at 21:00 Lorazepam (Ativan) 0.5 mg Q6H PRN IV PRN Last administered on 08/13/18 21:12; Admin Dose 0.5 MG; Start 08/11/18 at 00:00 Albuterol/ Ipratropium (Duoneb) 3 ml Q6H RESP THERAPY HHN Last administered on 08/15/18 13:31; Admin Dose 3 ML; Start 08/12/18 at 14:00 Doxycycline Hyclate 100 mg/ Sodium Chloride 250 ml @ 250 mls/hr Q12 IVPB Last administered on 08/15/18 08:20; Admin Dose 250 MLS/HR; Start 08/12/18 at 16:00 Mupirocin (Bactroban) 1 applic BID TOP Last administered on 08/15/18 12:49; Ad min Dose 1 APPLIC; Start 08/12/18 at 21:00 Ferric Sodium Gluconate Complex 125 mg/Sodium Chloride 110 ml @ 110 mls/hr DAILY@1300 IVPB Last administered on 08/15/18at 12:48; Admin Dose 110 MLS/HR; Start 08/13/18 at 13:00; Stop 08/17/18 at 13:59 Dextrose 1,000 ml @ 50 mls/hr Q20H IV Last administered on 08/15/18at 10:08; Admin Dose 50 MLS/HR; Start 08/15/18 at 09:00 Gabapentin (Neurontin) 600 mg TID PO Last administered on 08/15/18at 12:49; Admin Dose 600 MG; Start 08/15/18 at 13:00 Gentamicin Sulfate (Gentamicin Iv Per Pharmacy) GENTAMICIN PER PHARMACY NOTE XX ; Start 08/15/18 at 12:00 Colistimethate Sodium (Colistin Inhal) 75 mg BID RESP THERAPY NEB ; Start 08/15/18 at 20:00 Labetalol HCl (Labetalol) 10 mg Q4H PRN IV sbp >160 Last administered on 08/15/18at 12:48; Admin Dose 10 MG; Start 08/15/18 at 12:30 Amlodipine Besylate (Norvasc) 5 mg DAILY PO Last administered on 08/15/18at 15:0 5; Admin Dose 5 MG; Start 08/15/18 at 12:30 Gentamicin Sulfate 360 mg/ Dextrose 109 ml @ 103.75 mls/ hr Q24H IVPB Last administered on 08/15/18at 15:04; Admin Dose 103.75 MLS/HR; Start 08/15/18 at 14 :30 PATEL DUTTA NP Aug 15, 2018 15:16
[2018-08-15] MEDS ORDERED: AMLODIPINE 5 MG TAB PO ONE (16:00)
[2018-08-15] MEDS ORDERED: ENALAPRILAT 1.25 MG INJ IV PRN (16:00)
[2018-08-15] MEDS ORDERED: hydrALAzine 20 MG INJ IV PRN (16:00)
[2018-08-15] MEDS: COLISTIMETHATE (25 MG/ML INHAL SYG) NEB SCH (20:00)
[2018-08-16] VITALS (12 sets, daily range): BP systolic 135–165; BP diastolic 71–92; PULSE 69–114; RESP 16–28
[2018-08-16] MEDS: morphine 2 MG INJ IV PRN ×5 (00:58→20:09)
[2018-08-16] MEDS: ALBUTEROL/IPRATROPIUM (NEB) 3 ML AMP HHN SCH ×4 (01:11→20:12)
[2018-08-16] MEDS: PANTOPRAZOLE 40 MG INJ IV SCH (05:19)
[2018-08-16] MEDS: DEXTROSE 5% 1,000 ML IV SCH (05:23)
[2018-08-16] MEDS ORDERED: MAGNESIUM SULFATE 2 GM/50 ML 50 ML IVPB ONE (09:00)
[2018-08-16] MEDS: DOXYCYCLINE 100 MG in SOD CHLORIDE 0.9% 250 ML IVPB SCH ×2 (09:22→20:09)
[2018-08-16] MEDS: GABAPENTIN 300 MG CAP PO SCH ×3 (09:22→20:10)
[2018-08-16] MEDS: MUPIROCIN 2% 22 GM OINT TOP SCH ×2 (09:23→20:10)
[2018-08-16] MEDS: LISINOPRIL 20 MG TAB PO SCH (09:23)
[2018-08-16] MEDS: AMLODIPINE 10 MG TAB PO SCH (09:23)
--- NOTE | 2018-08-16 09:45 | PN ---
DATE: 08/16/2018 SUBJECTIVE: The patient is stable. No events overnight. OBJECTIVE: VITAL SIGNS: Blood pressure 157/89, pulse 89, respirations 20, temperature 98.0. HEENT: Head is normocephalic. NECK: Shows trach. HEART: Regular rate. LUNGS: Show diminished breath sounds at the base. ABDOMEN: Soft, nontender to palpation without rebound or guarding. EXTREMITIES: Negative for clubbing, cyanosis, no edema. DERMATOLOGIC: No rashes. MUSCULOSKELETAL: No joint effusion. NEUROLOGIC: No change in exam. MEDICATIONS: The patient's medications have been reviewed. LABORATORY DATA: Has been reviewed. ASSESSMENT AND PLAN: 1. Nonoliguric acute kidney injury with previously normal baseline creatinine. Etiology of JOCELIN is s econdary to hemodynamics, sepsis. Renal function is improved. Continue current treatment plan, supp ortive care, renally dose all meds. 2. Anemia with iron deficiency. The patient is completing course of IV iron. 3. Mineral bone disorder, monitor calcium and phosphorus levels. 4. Sepsis, status post shock secondary to pneumonia. The patient has completed an antibiotic course . 5. Hypernatremia, improved. Continue D5 water as the patient has poor oral intake. 6. Hypertension. Blood pressure remains elevated. We will adjust blood pressure medications. 7. Chronic respiratory failure, status post tracheostomy, currently stable. 8. Dysphagia. Continue modified diet. 9. Acute encephalopathy, etiology is toxic metabolic. 10. History of chronic obstructive pulmonary disease. 11. History of lung disease. 12. Hypomagnesemia. Continue to monitor and replete. Dictated By: INES HENRIQUEZ/MARIA GUADALUPE Conf#: [id number] DID#: [id number] CC: RAUL CRANE MD; FRANKO SAUCEDA MD;*EndCC*
[2018-08-16] MEDS: HEPARIN 5,000 UNIT/1 ML VIAL SC SCH ×2 (10:21→20:50)
--- NOTE | 2018-08-16 13:09 | PN ---
Date/Time of Note Date/Time of Note DATE: 08/16/18 TIME: 13:08 Objective Vitals Vital Signs Date Temp Pulse Resp B/P (MAP) Pulse Ox O2 O2 Flow FiO2 Time Delivery Rate 08/16/18 114 12:09 08/16/18 98.7 16 163/92 100 T Tube 11:36 (115) Trach Collar 08/16/18 5.0 28 11:06 Intake and Output 08/15/18 08/15/18 08/16/18 1515:00 23:00 07:00 IntakeIntake Total 890 ml 1000 ml OutputOutput Total 1500 ml 1750 ml BalanceBalance -610 ml -750 ml Results Result Diagram: 08/16/1853008/16/18530 Medications Medications Current Medications Ondansetron HCl (Zofran Inj) 4 mg Q6H PRN IV NAUSEA AND/OR VOMITING; Start 08/10/18 at 18:00 Acetaminophen (Tylenol Liquid) 650 mg Q6H PRN PO PAIN LEVEL 1-3 OR FEVER; Start 08/10/18 at 18:00 Morphine Sulfate (morphine) 2 mg Q4H PRN IV PAIN LEVEL 7-10 Last administered on 08/16/18 05:20; Admin Dose 2 MG; Start 08/10/18 at 18:00 Pantoprazole (Protonix Iv) 40 mg DAILY@06 IV Last administered on 08/16/18 05:19; Admin Dose 40 MG; Start 08/11/18 at 06:00 Heparin Sodium (Porcine) (Heparin (5000 Units/1ml)) 5,000 unit Q12 SC Last administered on 08/16/18 10:21; Admin Dose 5,000 UNIT; Start 08/10/18 at 21:00 Lorazepam (Ativan) 0.5 mg Q6H PRN IV PRN Last administered on 08/13/18 21:12; Admin Dose 0.5 MG; Start 08/11/18 at 00:00 Albuterol/ Ipratropium (Duoneb) 3 ml Q6H RESP THERAPY HHN Last administered on 08/16/18 07:57; Admin Dose 3 ML; Start 08/12/18 at 14:00 Doxycycline Hyclate 100 mg/ Sodium Chloride 250 ml @ 250 mls/hr Q12 IVPB Last administered on 08/16/18 09:22; Admin Dose 250 MLS/HR; Start 08/12/18 at 16:00 Mupirocin (Bactroban) 1 applic BID TOP Last administered on 08/16/18 09:23; Admin Dose 1 APPLIC; Start 08/12/18 at 21:00 Ferric Sodium Gluconate Complex 125 mg/Sodium Chloride 110 ml @ 110 mls/hr DAILY@1300 IVPB Last administered on 08/15/18 12:48; Admin Dose 110 MLS/HR; Start 08/13/18 at 13:00; Stop 08/17/18 at 13:59 Dextrose 1,000 ml @ 50 mls/hr Q20H IV Last administered on 08/16/18 05:23; Admin Dose 50 MLS/HR; Start 08/15/18 at 09:00 Gabapentin (Neurontin) 600 mg TID PO Last administered on 08/16/18 09:22; Admin Dose 600 MG; Start 08/15/18 at 13:00 Gentamicin Sulfate (Gentamicin Iv Per Pharmacy) GENTAMICIN PER PHARMACY NOTE XX ; Start 08/15/18 at 12:00 Colistimethate Sodium (Colistin Inhal) 75 mg BID RESP THERAPY NEB ; Start 08/15/18 at 20:00 Labetalol HCl (Labetalol) 10 mg Q4H PRN IV sbp >160 Last administered on 08/15/18 12:48; Admin Dose 10 MG; Start 08/15/18 at 12:30 Gentamicin Sulfate 360 mg/ Dextrose 109 ml @ 103.75 mls/ hr Q24H IVPB Last administered on 08/15/18 15:04; Admin Dose 103.75 MLS/HR; Start 08/15/18 at 14:30 Hydralazine HCl (Apresoline) 10 mg Q4H PRN IV sbp >160; Start 08/15/18 at 16:00 Clonidine (Catapres) 0.1 mg Q6H PRN PO sbp >160 Last administered on 08/15/18 16:15; Admin Dose 0.1 MG; Start 08/15/18 at 16:00 Enalaprilat (Vasotec Iv) 0.625 mg Q6H PRN IV sbp >160; Start 08/15/18 at 16:00 Amlodipine Besylate (Norvasc) 10 mg DAILY PO Last administered on 4/27/19at 09:23; Admin Dose 10 MG; Start 08/16/18 at 09:00 Lisinopril (Zestril) 20 mg DAILY PO Last administered on 08/16/18at 09:23; Admin Dose 20 MG; Start 08/16/18 at 09:00 VTE Prophylaxis Risk score (from [facility] [place])>0 risk: 7 SCD applied (from [facility] [place]): Yes Lines/Catheters IV Catheter Type: Atkinson in Place: No Assessment/Plan Hospital Course Subjective Patient continues to improve, still has secretions and bloody cough which is chronic Objective Physical exam General: Patient is laying in bed and answers questions appropriately but slowly, trach to vent Mentation: Patient is alert and oriented somewhat Head: Normocephalic atraumatic Eyes: EOMI, pupils reactive to light Neck: Supple, nontender, midline Respiratory: Clear to auscultation bilaterally Cardiovascular: regular rate, no obvious murmurs Gastrointestinal: non-tender to palpation, bowel sounds heard. Neurological: Moves all extremities spontaneously but weak Skin: No new skin lesions Assessment and plan Acute hypoxic respiratory failure -Likely secondary to dislodged cannula and aspiration pneumonia -Weaned off vent -Pulmonology following -Patient baseline is trach to air -Pulmonology is very familiar with this patient -Patient still with significant amount of secretions Acute encephalopathy, resolving significantly -Continues to improve daily -Patient able to follow all commands however appears very weak -Likely secondary to pneumonia and sepsis -Patient improving, will monitor Septic shock, resolved -Patient off pressors since this morning -Secondary likely due to pneumonia -IV antibiotic -ID on board -Blood cultures pending Right-sided pneumonia -Likely aspiration due to decompensation at home -IV antibiotic -Infectious disease on board Acute kidney injury -Patient having normal kidney function a few weeks ago when admitted, nephrology on board -Continue IV hydration -Further recommendations per nephrology History of cystic lung disease, with chronic bloody cough -Pulmonology well aware of patient's condition -Breathing treatments as needed -Patient refused embolization for bloody cough on previous hospitalization per pulmonology -Still with secretions History of COPD -Manage as per pulmonology Anemia -We will closely monitor and transfuse as needed, no overt signs of GI bleed -Currently hemoglobin stable -Iron supplementation per nephrology generalized weakness - secondary to above issues - improving Disposition -Continue IV antibiotics, PT will need to continue to see patient, patient is nowhere near baseline, patient believes he can get better in a few days however is open [facility] the idea of [facility] if he does not improve well enough in a couple days. RAUL CRANE Aug 16, 2018 13:09
[2018-08-16] MEDS: COLISTIMETHATE (25 MG/ML INHAL SYG) NEB SCH ×2 (13:28→20:12)
[2018-08-16] MEDS: SOD FERRIC GLUC COMPLX 125 MG in SOD CHLORIDE 0.9% 100 ML IVPB SCH (13:37)
[2018-08-16] MEDS: GENTAMICIN 360 MG in DEXTROSE 5% 100 ML IVPB SCH (13:37)
--- NOTE | 2018-08-16 14:46 | CONS ---
Consult Date/Type/Reason Admit Date/Time Aug 10, 2018 at 17:36 Initial Consult Date Type of Consultation: Pulm Date/Time of Note DATE: 08/16/18 TIME: 14:43 Subjective no events overnight. Objective Vitals Vital Signs Date Temp Pulse Resp B/P (MAP) Pulse Ox O2 O2 Flow FiO2 Time Delivery Rate 08/16/18 97 5.0 28 13:31 08/16/18 88 20 Aerosol 13:30 T Tube 08/16/18 98.7 163/92 11:36 (115) Intake and Output 08/15/18 08/15/18 08/16/18 1515:00 23:00 07:00 IntakeIntake Total 890 ml 1000 ml OutputOutput Total 1500 ml 1750 ml BalanceBalance -610 ml -750 ml Exam HEENT: Neck supple; no JVD; no LAD; + trach CVS: RRR, S1 and S2 CHEST: Decreased BS right side ABD: Soft, NT, + BS EXT: No c/c/e Results/Medications Result Diagram: 08/16/1831 08/16/18 0531 Results 24 hrs Laboratory Tests Test 08/16/18 01:24 08/16/18 05:31 Random Gentamicin Level 4.5 White Blood Count 4.6 L Red Blood Count 4.14 L Hemoglobin 9.9 L Hematocrit 32.4 L Mean Corpuscular Volume 78.3 L Mean Corpuscular Hemoglobin 23.9 L Mean Corpuscular Hemoglobin Concent 30.6 L Red Cell Distribution Width 19.2 H Platelet Count 318 Mean Platelet Volume 10.1 Immature Granulocytes % 0.400 Neutrophils % 56.2 Lymphocytes % 20.4 Monocytes % 15.8 H Eosinophils % 6.5 Basophils % 0.7 Nucleated Red Blood Cells % 0.0 Immature Granulocytes # 0.020 Neutrophils # 2.6 Lymphocytes # 0.9 Monocytes # 0.7 Eosinophils # 0.3 Basophils # 0.0 Nucleated Red Blood Cells # 0.0 Sodium Level 143 Potassium Level 3.7 Chloride Level 105 Carbon Dioxide Level 34 H Anion Gap 4 L Blood Urea Nitrogen 4 L Creatinine 0.62 Est Glomerular Filtrat Rate mL/min > 60 Glucose Level 88 Calcium Level 9.6 Phosphorus Level 3.2 Magnesium Level 1.6 L Home Meds Active Scripts Levofloxacin* (Levofloxacin*) 750 Mg Tablet, 750 MG PO DAILY, #10 TAB Prov:ANA CARRANZA MD 07/21/18 Reported Medications Pantoprazole* (Pantoprazole*) 40 Mg Tablet.dr, 40 MG GTB AC BREAKFAST, TAB 07/17/18 Clonidine Hcl* (Clonidine Hcl*) 0.1 Mg Tab, 0.1 MG GTB NEEDED, TAB 07/17/18 Hydralazine Hcl* (Hydralazine Hcl*) 25 Mg Tab, 25 MG GTB Q8 PRN for NEEDED, #90 TAB 07/17/18 Gabapentin* (Gabapentin*) 800 Mg Tablet, 800 MG GTB TID, #90 TAB 07/17/18 Alprazolam* (Xanax*) 2 Mg Tablet, 2 MG GTB Q8H PRN for ANXIETY, TAB 07/17/18 Hydrocodone/Acetaminophen (Bryant 10-325 Tablet) 1 Each Tablet, 1 EACH GTB Q6H PRN for NEEDED, TAB 07/17/18 Medications Current Medications Ondansetron HCl (Zofran Inj) 4 mg Q6H PRN IV NAUSEA AND/OR VOMITING; Start 08/10/18 at 18:00 Acetaminophen (Tylenol Liquid) 650 mg Q6H PRN PO PAIN LEVEL 1-3 OR FEVER; Start 08/10/18 at 18:00 Morphine Sulfate (morphine) 2 mg Q4H PRN IV PAIN LEVEL 7-10 Last administered on 08/16/18at 10:12; Admin Dose 2 MG; Start 08/10/18 at 18:00 Pantoprazole (Protonix Iv) 40 mg DAILY@06 IV Last administered on 08/16/18at 05:19; Admin Dose 40 MG; Start 08/11/18 at 06:00 Heparin Sodium (Porcine) (Heparin (5000 Units/1ml)) 5,000 unit Q12 SC Last administered on 08/16/18at 10:21; Admin Dose 5,000 UNIT; Start 08/10/18 at 21:00 Lorazepam (Ativan) 0.5 mg Q6H PRN IV PRN Last administered on 08/13/18at 21:12; Admin Dose 0.5 MG; Start 08/11/18 at 00:00 Albuterol/ Ipratropium (Duoneb) 3 ml Q6H RESP THERAPY HHN Last administered on 08/16/18at 13:28; Admin Dose 3 ML; Start 08/12/18 at 14:00 Doxycycline Hyclate 100 mg/ Sodium Chloride 250 ml @ 250 mls/hr Q12 IVPB Last administered on 08/16/18 09:22; Admin Dose 250 MLS/HR; Start 08/12/18 at 16:00 Mupirocin (Bactroban) 1 applic BID TOP Last administered on 08/16/18 09:23; Admin Dose 1 APPLIC; Start 08/12/18 at 21:00 Ferric Sodium Gluconate Complex 125 mg/Sodium Chloride 110 ml @ 110 mls/hr DAILY@1300 IVPB Last administered on 08/16/18 13:37; Admin Dose 110 MLS/HR; Start 08/13/18 at 13:00; Stop 08/17/18 at 13:59 Dextrose 1,000 ml @ 50 mls/hr Q20H IV Last administered on 08/16/18 05:23; Admin Dose 50 MLS/HR; Start 08/15/18 at 09:00 Gabapentin (Neurontin) 600 mg TID PO Last administered on 08/16/18 13:37; Admin Dose 600 MG; Start 08/15/18 at 13:00 Gentamicin Sulfate (Gentamicin Iv Per Pharmacy) GENTAMICIN PER PHARMACY NOTE XX ; Start 08/15/18 at 12:00 Colistimethate Sodium (Colistin Inhal) 75 mg BID RESP THERAPY NEB Last administered on 08/16/18at 13:28; Admin Dose 75 MG; Start 08/15/18 at 20:00 Labetalol HCl (Labetalol) 10 mg Q4H PRN IV sbp >160 Last administered on 08/15/18at 12:48; Admin Dose 10 MG; Start 08/15/18 at 12:30 Hydralazine HCl (Apresoline) 10 mg Q4H PRN IV sbp >160; Start 08/15/18 at 16:00 Clonidine (Catapres) 0.1 mg Q6H PRN PO sbp >160 Last administered on 08/15/18at 16:15; Admin Dose 0.1 MG; Start 08/15/18 at 16:00 Enalaprilat (Vasotec Iv) 0.625 mg Q6H PRN IV sbp >160; Start 08/15/18 at 16:00 Amlodipine Besylate (Norvasc) 10 mg DAILY PO Last administered on 08/16/18at 09:23; Admin Dose 10 MG; Start 08/16/18 at 09:00 Lisinopril (Zestril) 20 mg DAILY PO Last administered on 08/16/18at 09:23; Admin Dose 20 MG; Start 08/16/18 at 09:00 Gentamicin Sulfate 360 mg/ Dextrose 109 ml @ 103.75 mls/ hr Q36H IVPB ; Start 08/18/18 at 03:00 Assessment/Plan Assessment/Plan (Daily) IMP: 1. Hemoptysis 2. 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 Chronic Resp Failure RECS: 1. Follow hemoptysis quantity 2. CPT suctioning/BDs 3. Mobilize AZRA CRISOSTOMO MD Aug 16, 2018 14:46
--- NOTE | 2018-08-16 15:52 | CONS ---
Assessment/Plan Assessment/Plan Hospital Course (Demo Recall) ID PROGRESS NOTE CURRENT ABX=Day # => Doxycycline, GENT, Colistin INH s/p Zosyn 24H INTERVAL SUMMARY * A/A/ responsive, calm, polite, no fevers, VSS, NAD * Indwelling: Tracheostomy MICRO Sputum culture grew multidrug-resistant Pseudomonas and Acinetobacter Antimicrobials: Zosyn, doxycycline, topical Bactroban Blood and urine cultures negative, MRSA swab positive PHYSICAL EXAMINATION: GENERAL:VSS, NAD HEENT: Unremarkable NECK: Supple, trach (+)secure CHEST: Rise symmetrical, without dyspnea on observation HEART: Pulse RRR ABDOMEN: Soft, ND EXTREMITIES: Warm, moves all extremities ID ASSESSMENT 67 yo M admit with: 1. Acute on chronic respiratory failure 2. Healthcare associated pneumonia possibly aspiration 3. MRSA nares colonization 4. Cavitating lung disease 5. Anemia INVASIVES: Trach ABX ALLERGY: KNDA CURRENT ABX: => Doxycycline, GENT, Colistin INH s/p Zosyn ID RECOMMENDATIONS 1.Plan: Remains stable, continue doxycycline, gentamicin and colistin inhalation, continue aspiration precautions . Consultation Date/Type/Reason Admit Date/Time Aug 10, 2018 at 17:36 Initial Consult Date Date/Time of Note DATE: 08/16/18 TIME: 15:51 Exam/Review of Systems Exam Vitals Vital Signs Date Temp Pulse Resp B/P (MAP) Pulse Ox O2 O2 Flow FiO2 Time Delivery Rate 08/16/18 98.7 83 18 165/80 99 Trach 15:35 (108) Collar 08/16/18 5.0 28 13:31 Intake and Output 08/15/18 08/15/18 08/16/18 1515:00 23:00 07:00 IntakeIntake Total 890 ml 1000 ml OutputOutput Total 1500 ml 1750 ml BalanceBalance -610 ml -750 ml Results Result Diagram: 08/16/18 0531 08/16/18 0531 Results 24hrs Laboratory Tests Test 08/16/18 01:24 08/16/18 05:31 Random Gentamicin Level 4.5 White Blood Count 4.6 L Red Blood Count 4.14 L Hemoglobin 9.9 L Hematocrit 32.4 L Mean Corpuscular Volume 78.3 L Mean Corpuscular Hemoglobin 23.9 L Mean Corpuscular Hemoglobin Concent 30.6 L Red Cell Distribution Width 19.2 H Platelet Count 318 Mean Platelet Volume 10.1 Immature Granulocytes % 0.400 Neutrophils % 56.2 Lymphocytes % 20.4 Monocytes % 15.8 H Eosinophils % 6.5 Basophils % 0.7 Nucleated Red Blood Cells % 0.0 Immature Granulocytes # 0.020 Neutrophils # 2.6 Lymphocytes # 0.9 Monocytes # 0.7 Eosinophils # 0.3 Basophils # 0.0 Nucleated Red Blood Cells # 0.0 Sodium Level 143 Potassium Level 3.7 Chloride Level 105 Carbon Dioxide Level 34 H Anion Gap 4 L Blood Urea Nitrogen 4 L Creatinine 0.62 Est Glomerular Filtrat Rate mL/min > 60 Glucose Level 88 Calcium Level 9.6 Phosphorus Level 3.2 Magnesium Level 1.6 L Medications Medication Current Medications Ondansetron HCl (Zofran Inj) 4 mg Q6H PRN IV NAUSEA AND/OR VOMITING; Start 08/10/18 at 18:00 Acetaminophen (Tylenol Liquid) 650 mg Q6H PRN PO PAIN LEVEL 1-3 OR FEVER; Start 08/10/18 at 18:00 Morphine Sulfate (morphine) 2 mg Q4H PRN IV PAIN LEVEL 7-10 Last administered on 08/16/18 14:54; Admin Dose 2 MG; Start 08/10/18 at 18:00 Pantoprazole (Protonix Iv) 40 mg DAILY@06 IV Last administered on 08/16/18 05:19; Admin Dose 40 MG; Start 08/11/18 at 06:00 Heparin Sodium (Porcine) (Heparin (5000 Units/1ml)) 5,000 unit Q12 SC Last administered on 08/16/18 10:21; Admin Dose 5,000 UNIT; Start 08/10/18 at 21:00 Lorazepam (Ativan) 0.5 mg Q6H PRN IV PRN Last administered on 08/13/18 21:12; Admin Dose 0.5 MG; Start 08/11/18 at 00:00 Albuterol/ Ipratropium (Duoneb) 3 ml Q6H RESP THERAPY HHN Last administered on 08/16/18 13:28; Admin Dose 3 ML; Start 08/12/18 at 14:00 Doxycycline Hyclate 100 mg/ Sodium Chloride 250 ml @ 250 mls/hr Q12 IVPB Last administered on 08/16/18 09:22; Admin Dose 250 MLS/HR; Start 08/12/18 at 16:00 Mupirocin (Bactroban) 1 applic BID TOP Last administered on 08/16/18 09:23; Admin Dose 1 APPLIC; Start 08/12/18 at 21:00 Ferric Sodium Gluconate Complex 125 mg/Sodium Chloride 110 ml @ 110 mls/hr DAILY@1300 IVPB Last administered on 08/16/18 13:37; Admin Dose 110 MLS/HR; Start 08/13/18 at 13:00; Stop 08/17/18 at 13:59 Dextrose 1,000 ml @ 50 mls/hr Q20H IV Last administered on 08/16/18 05:23; Admin Dose 50 MLS/HR; Start 08/15/18 at 09:00 Gabapentin (Neurontin) 600 mg TID PO Last administered on 08/16/18 13:37; Admin Dose 600 MG; Start 08/15/18 at 13:00 Gentamicin Sulfate (Gentamicin Iv Per Pharmacy) GENTAMICIN PER PHARMACY NOTE XX ; Start 08/15/18 at 12:00 Colistimethate Sodium (Colistin Inhal) 75 mg BID RESP THERAPY NEB Last administered on 08/16/18 13:28; Admin Dose 75 MG; Start 08/15/18 at 20:00 Labetalol HCl (Labetalol) 10 mg Q4H PRN IV sbp >160 Last administered on 08/15/18 12:48; Admin Dose 10 MG; Start 08/15/18 at 12:30 Hydralazine HCl (Apresoline) 10 mg Q4H PRN IV sbp >160; Start 08/15/18 at 16:00 Clonidine (Catapres) 0.1 mg Q6H PRN PO sbp >160 Last administered on 08/16/18 15:46; Admin Dose 0.1 MG; Start 08/15/18 at 16:00 Enalaprilat (Vasotec Iv) 0.625 mg Q6H PRN IV sbp >160; Start 08/15/18 at 16:00 Amlodipine Besylate (Norvasc) 10 mg DAILY PO Last administered on 08/16/18 09:23; Admin Dose 10 MG; Start 08/16/18 at 09:00 Lisinopril (Zestril) 20 mg DAILY PO Last administered on 08/16/18 09:23; Admin Dose 20 MG; Start 08/16/18 at 09:00 Gentamicin Sulfate 360 mg/ Dextrose 109 ml @ 103.75 mls/ hr Q36H IVPB ; Start 08/18/18 at 03:00 OJ ROMEO NP Aug 16, 2018 15:52
[2018-08-17] VITALS (12 sets, daily range): BP systolic 129–141; BP diastolic 57–73; PULSE 64–135; RESP 18–19
[2018-08-17] MEDS: morphine 2 MG INJ IV PRN ×5 (00:22→22:28)
[2018-08-17] MEDS: DEXTROSE 5% 1,000 ML IV SCH ×3 (01:00→09:24)
[2018-08-17] MEDS: ALBUTEROL/IPRATROPIUM (NEB) 3 ML AMP HHN SCH ×4 (01:01→20:09)
[2018-08-17] MEDS ORDERED: GENTAMICIN 360 MG in DEXTROSE 5% 100 ML IVPB SCH (03:00)
[2018-08-17] MEDS: PANTOPRAZOLE 40 MG INJ IV SCH (04:59)
[2018-08-17] MEDS ORDERED: ALTEPLASE (CATHFLO) 2 MG INJ CATHETER PRN (05:30)
[2018-08-17] MEDS: COLISTIMETHATE (25 MG/ML INHAL SYG) NEB SCH ×2 (08:12→20:10)
--- NOTE | 2018-08-17 08:39 | PN ---
DATE: 08/17/2018 SUBJECTIVE: The patient is stable, no events overnight. OBJECTIVE: VITAL SIGNS: Blood pressure is 133/57, respiration 18, pulse 78, temperature 98.0. HEENT: Head is normocephalic. NECK: Supple. HEART: Regular rate. LUNGS: Show diminished breath sounds at the base. ABDOMEN: Soft, nontender to palpation without rebound or guarding. EXTREMITIES: Negative for clubbing, cyanosis, no edema. DERMATOLOGIC: No rashes. MUSCULOSKELETAL: No joint effusion. NEUROLOGIC: No change in exam. MEDICATIONS: Reviewed. LABORATORY DATA: Has been reviewed. ASSESSMENT AND PLAN: 1. Nonoliguric kidney injury with unknown baseline creatinine. Etiology of acute kidney injury is s econdary to hemodynamics, sepsis. Renal function is improved. Continue current treatment plan, supp ortive care, renally dose all meds. 2. Anemia. Monitor hemoglobin and hematocrit levels. The patient is status post IV iron. 3. Mineral bone disorder, monitor calcium and phosphorus levels. 4. Sepsis, status post shock secondary to pneumonia. The patient is completing antibiotic course. 5. Hypernatremia, improved. Continue D5 water, will deescalate. Continue to encourage oral intake. 6. Hypertension. Continue current blood pressure regimen. 7. Chronic respiratory failure, status post tracheostomy, currently stable. 8. Dysphagia. Continue modified diet. 9. Acute encephalopathy, etiology is toxic metabolic. Mental status is improving. 10. History of chronic obstructive pulmonary disease. 11. History of lung disease. 12. Hypomagnesemia. Continue to monitor and replete as needed. Dictated By: INES HENRIQUEZ/MARIA GUADALUPE Conf#: [id number] DID#: [id number] CC: FRANKO SAUCEDA MD;*EndCC*
[2018-08-17] MEDS: DOXYCYCLINE 100 MG in SOD CHLORIDE 0.9% 250 ML IVPB SCH ×2 (09:17→21:25)
[2018-08-17] MEDS: GABAPENTIN 300 MG CAP PO SCH ×3 (09:18→21:25)
[2018-08-17] MEDS: LISINOPRIL 20 MG TAB PO SCH (09:18)
[2018-08-17] MEDS: AMLODIPINE 10 MG TAB PO SCH (09:18)
[2018-08-17] MEDS: MUPIROCIN 2% 22 GM OINT TOP SCH ×2 (09:20→21:27)
[2018-08-17] MEDS: HEPARIN 5,000 UNIT/1 ML VIAL SC SCH ×2 (09:59→21:39)
--- NOTE | 2018-08-17 11:44 | CONS ---
Assessment/Plan Assessment/Plan Hospital Course (Demo Recall) ID PROGRESS NOTE CURRENT ABX=Day # => Doxycycline, GENT, Colistin INH s/p Zosyn 24H INTERVAL SUMMARY * A/A/ resting on trach mask -- frail chronic debility, responsive, calm, polite, no fevers, VSS, NAD, no c/o offered * Patient is well known to Dr. Armstrong's ID team from multiple back to back chronic admissions to various [facility] hospitals, mainly [facility] * Indwelling: Tracheostomy MICRO Sputum culture grew multidrug-resistant Pseudomonas and Acinetobacter Antimicrobials: Zosyn, doxycycline, topical Bactroban Blood and urine cultures negative, MRSA swab positive PHYSICAL EXAMINATION: GENERAL:VSS, NAD HEENT: Unremarkable NECK: Supple, trach (+)secure CHEST: Rise symmetrical, without dyspnea on observation HEART: Pulse RRR ABDOMEN: Soft, ND EXTREMITIES: Warm, moves all extremities ID ASSESSMENT 67 yo M admit with: 1. Acute on chronic respiratory failure 2. Healthcare associated pneumonia * Recurrent silent aspiration see barium swallow results 3. MRSA nares colonization 4. Cavitating lung disease 5. Anemia INVASIVES: Trach ABX ALLERGY: KNDA CURRENT ABX: => Doxycycline, GENT, Colistin INH s/p Zosyn ID RECOMMENDATIONS 1.Plan: Remains stable, continue doxycycline, gentamicin and colistin inhalation, continue aspiration precautions . Consultation Date/Type/Reason Admit Date/Time Aug 10, 2018 at 17:36 Initial Consult Date Date/Time of Note DATE: 08/17/18 TIME: 11:42 Exam/Review of Systems Exam Vitals Vital Signs Date Temp Pulse Resp B/P (MAP) Pulse Ox O2 O2 Flow FiO2 Time Delivery Rate 08/17/18 97 7.0 28 08:15 08/17/18 78 22 Aerosol 08:15 08/17/18 98.0 133/57 07:48 (82) Intake and Output 08/16/18 08/16/18 08/17/18 1515:00 23:00 07:00 IntakeIntake Total 800 ml 250 ml OutputOutput Total 600 ml 1100 ml BalanceBalance 200 ml -850 ml Results Result Diagram: 08/17/18 0517 08/17/18 0517 Results 24hrs Laboratory Tests Test 08/17/18 05:17 White Blood Count 4.4 L Red Blood Count 4.29 L Hemoglobin 10.2 L Hematocrit 33.4 L Mean Corpuscular Volume 77.9 L Mean Corpuscular Hemoglobin 23.8 L Mean Corpuscular Hemoglobin Concent 30.5 L Red Cell Distribution Width 19.9 H Platelet Count 286 Mean Platelet Volume 9.9 Immature Granulocytes % 0.500 H Neutrophils % 54.0 Lymphocytes % 24.0 Monocytes % 15.1 H Eosinophils % 5.9 Basophils % 0.5 Nucleated Red Blood Cells % 0.0 Immature Granulocytes # 0.020 Neutrophils # 2.4 Lymphocytes # 1.1 Monocytes # 0.7 Eosinophils # 0.3 Basophils # 0.0 Nucleated Red Blood Cells # 0.0 Sodium Level 141 Potassium Level 4.6 Chloride Level 103 Carbon Dioxide Level 32 H Anion Gap 6 Blood Urea Nitrogen 8 Creatinine 0.58 L Est Glomerular Filtrat Rate mL/min > 60 Glucose Level 87 Calcium Level 9.6 Phosphorus Level 3.7 Magnesium Level 2.0 Medications Medication Current Medications Ondansetron HCl (Zofran Inj) 4 mg Q6H PRN IV NAUSEA AND/OR VOMITING; Start 08/10/18 at 18:00 Acetaminophen (Tylenol Liquid) 650 mg Q6H PRN PO PAIN LEVEL 1-3 OR FEVER; Start 08/10/18 at 18:00 Morphine Sulfate (morphine) 2 mg Q4H PRN IV PAIN LEVEL 7-10 Last administered on 08/17/18 04:59; Admin Dose 2 MG; Start 08/10/18 at 18:00 Pantoprazole (Protonix Iv) 40 mg DAILY@06 IV Last administered on 08/17/18 04:59; Admin Dose 40 MG; Start 08/11/18 at 06:00 Heparin Sodium (Porcine) (Heparin (5000 Units/1ml)) 5,000 unit Q12 SC Last administered on 08/17/18 09:59; Admin Dose 5,000 UNIT; Start 08/10/18 at 21:00 Lorazepam (Ativan) 0.5 mg Q6H PRN IV PRN Last administered on 08/13/18 21:12; Admin Dose 0.5 MG; Start 08/11/18 at 00:00 Albuterol/ Ipratropium (Duoneb) 3 ml Q6H RESP THERAPY HHN Last administered on 08/17/18 08:12; Admin Dose 3 ML; Start 08/12/18 at 14:00 Doxycycline Hyclate 100 mg/ Sodium Chloride 250 ml @ 250 mls/hr Q12 IVPB Last administered on 08/17/18 09:17; Admin Dose 250 MLS/HR; Start 08/12/18 at 16:00 Mupirocin (Bactroban) 1 applic BID TOP Last administered on 08/17/18 09:20; Admin Dose 1 APPLIC; Start 08/12/18 at 21:00 Ferric Sodium Gluconate Complex 125 mg/Sodium Chloride 110 ml @ 110 mls/hr DAILY@1300 IVPB Last administered on 08/16/18 13:37; Admin Dose 110 MLS/HR; Start 08/13/18 at 13:00; Stop 08/17/18 at 13:59 Dextrose 1,000 ml @ 20 mls/hr Q24H IV Last administered on 08/17/18 09:24; Admin Dose 20 MLS/HR; Start 08/15/18 at 09:00 Gabapentin (Neurontin) 600 mg TID PO Last administered on 08/17/18 09:18; Admin Dose 600 MG; Start 08/15/18 at 13:00 Gentamicin Sulfate (Gentamicin Iv Per Pharmacy) GENTAMICIN PER PHARMACY NOTE XX ; Start 08/15/18 at 12:00 Colistimethate Sodium (Colistin Inhal) 75 mg BID RESP THERAPY NEB Last admi nistered on 08/17/18 08:12; Admin Dose 75 MG; Start 08/15/18 at 20:00 Labetalol HCl (Labetalol) 10 mg Q4H PRN IV sbp >160 Last administered on 08/15/18at 12:48; Admin Dose 10 MG; Start 08/15/18 at 12:30 Hydralazine HCl (Apresoline) 10 mg Q4H PRN IV sbp >160; Start 08/15/18 at 16:00 Clonidine (Catapres) 0.1 mg Q6H PRN PO sbp >160 Last administered on 08/16/18 15:46; Admin Dose 0.1 MG; Start 08/15/18 at 16:00 Enalaprilat (Vasotec Iv) 0.625 mg Q6H PRN IV sbp >160; Start 08/15/18 at 16:00 Amlodipine Besylate (Norvasc) 10 mg DAILY PO Last administered on 08/17/18 09:18; Admin Dose 10 MG; Start 08/16/18 at 09:00 Lisinopril (Zestril) 20 mg DAILY PO Last administered on 08/17/18at 09:18; Admin Dose 20 MG; Start 08/16/18 at 09:00 Gentamicin Sulfate 360 mg/ Dextrose 109 ml @ 103.75 mls/ hr Q36H IVPB ; Start 08/18/18 at 03:00 Alteplase, Recombinant (Cathflo (Activase)) 2 mg MAY REPEAT X1 PRN CATHETER IF CATHETER REMAINS OCCULUDED Last administered on 08/17/18at 05:56; Admin Dose 2 MG; Start 08/17/18 at 05:30 Docusate Sodium (Colace) 100 mg BID PO ; Start 08/17/18 at 21:00 OJ ROMEO NP Aug 17, 2018 11:44
--- NOTE | 2018-08-17 12:21 | PN ---
Date/Time of Note Date/Time of Note DATE: 08/17/18 TIME: 12:20 Objective Vitals Vital Signs Date Temp Pulse Resp B/P (MAP) Pulse Ox O2 O2 Flow FiO2 Time Delivery Rate 08/17/18 94 12:18 08/17/18 98.0 18 129/73 98 11:46 (91) 08/17/18 7.0 28 08:15 08/17/18 Aerosol 08:15 Intake and Output 08/16/18 08/16/18 08/17/18 1515:00 23:00 07:00 IntakeIntake Total 800 ml 250 ml OutputOutput Total 600 ml 1100 ml BalanceBalance 200 ml -850 ml Results Result Diagram: 08/17/1851608/17/18516 Medications Medications Current Medications Ondansetron HCl (Zofran Inj) 4 mg Q6H PRN IV NAUSEA AND/OR VOMITING; Start 08/10/18 at 18:00 Acetaminophen (Tylenol Liquid) 650 mg Q6H PRN PO PAIN LEVEL 1-3 OR FEVER; Start 08/10/18 at 18:00 Morphine Sulfate (morphine) 2 mg Q4H PRN IV PAIN LEVEL 7-10 Last administered on 08/17/18 04:59; Admin Dose 2 MG; Start 08/10/18 at 18:00 Pantoprazole (Protonix Iv) 40 mg DAILY@06 IV Last administered on 08/17/18 04:59; Admin Dose 40 MG; Start 08/11/18 at 06:00 Heparin Sodium (Porcine) (Heparin (5000 Units/1ml)) 5,000 unit Q12 SC Last administered on 08/17/18 09:59; Admin Dose 5,000 UNIT; Start 08/10/18 at 21:00 Lorazepam (Ativan) 0.5 mg Q6H PRN IV PRN Last administered on 08/13/18 21:12; Admin Dose 0.5 MG; Start 08/11/18 at 00:00 Albuterol/ Ipratropium (Duoneb) 3 ml Q6H RESP THERAPY HHN Last administered on 08/17/18 08:12; Admin Dose 3 ML; Start 08/12/18 at 14:00 Doxycycline Hyclate 100 mg/ Sodium Chloride 250 ml @ 250 mls/hr Q12 IVPB Last administered on 08/17/18 09:17; Admin Dose 250 MLS/HR; Start 08/12/18 at 16:00 Mupirocin (Bactroban) 1 applic BID TOP Last administered on 08/17/18 09:20; Admin Dose 1 APPLIC; Start 08/12/18 at 21:00 Ferric Sodium Gluconate Complex 125 mg/Sodium Chloride 110 ml @ 110 mls/hr DAILY@1300 IVPB Last administered on 08/16/18 13:37; Admin Dose 110 MLS/HR; Start 08/13/18 at 13:00; Stop 08/17/18 at 13:59 Dextrose 1,000 ml @ 20 mls/hr Q24H IV Last administered on 08/17/18 09:24; Admin Dose 20 MLS/HR; Start 08/15/18 at 09:00 Gabapentin (Neurontin) 600 mg TID PO Last administered on 08/17/18 09:18; Admin Dose 600 MG; Start 08/15/18 at 13:00 Gentamicin Sulfate (Gentamicin Iv Per Pharmacy) GENTAMICIN PER PHARMACY NOTE XX ; Start 08/15/18 at 12:00 Colistimethate Sodium (Colistin Inhal) 75 mg BID RESP THERAPY NEB Last administered on 08/17/18 08:12; Admin Dose 75 MG; Start 08/15/18 at 20:00 Labetalol HCl (Labetalol) 10 mg Q4H PRN IV sbp >160 Last administered on 08/15/18at 12:48; Admin Dose 10 MG; Start 08/15/18 at 12:30 Hydralazine HCl (Apresoline) 10 mg Q4H PRN IV sbp >160; Start 08/15/18 at 16:00 Clonidine (Catapres) 0.1 mg Q6H PRN PO sbp >160 Last administered on 08/16/18at 15:46; Admin Dose 0.1 MG; Start 08/15/18 at 16:00 Enalaprilat (Vasotec Iv) 0.625 mg Q6H PRN IV sbp >160; Start 08/15/18 at 16:00 Amlodipine Besylate (Norvasc) 10 mg DAILY PO Last administered on 08/17/18 09:18; Admin Dose 10 MG; Start 08/16/18 at 09:00 Lisinopril (Zestril) 20 mg DAILY PO Last administered on 08/17/18at 09:18; Admin Dose 20 MG; Start 08/16/18 at 09:00 Gentamicin Sulfate 360 mg/ Dextrose 109 ml @ 103.75 mls/ hr Q36H IVPB ; Start 08/18/18 at 03:00 Alteplase, Recombinant (Cathflo (Activase)) 2 mg MAY REPEAT X1 PRN CATHETER IF CATHETER REMAINS OCCULUDED Last administered on 08/17/18at 05:56; Admin Dose 2 MG; Start 08/17/18 at 05:30 Docusate Sodium (Colace) 100 mg BID PO ; Start 08/17/18 at 21:00 VTE Pro[place] [facility] [place] risk: 10 [place] [facility] [place] Yes Lines/Catheters IV Catheter Type: Atkinson in Place: No Assessment/Plan Hospital Course Subjective Patient continues to improve, still has secretions and bloody cough which is chronic Objective Physical exam General: Patient is laying in bed and answers questions appropriately but slowly, trach to vent Mentation: Patient is alert and oriented somewhat Head: Normocephalic atraumatic Eyes: EOMI, pupils reactive to light Neck: Supple, nontender, midline Respiratory: Clear to auscultation bilaterally Cardiovascular: regular rate, no obvious murmurs Gastrointestinal: non-tender to palpation, bowel sounds heard. Neurological: Moves all extremities spontaneously but weak Skin: No new skin lesions Assessment and plan Acute hypoxic respiratory failure -Likely secondary to dislodged cannula and aspiration pneumonia -Weaned off vent -Pulmonology following -Patient baseline is trach to air -Pulmonology is very familiar with this patient -Patient still with significant amount of secretions Acute encephalopathy, resolved -Patient improving daily -Likely secondary to pneumonia and sepsis -Patient improving, will monitor Septic shock, resolved -Patient off pressors -Secondary likely due to pneumonia -IV antibiotic -ID on board -Blood cultures pending Right-sided pneumonia -Likely aspiration due to decompensation at home -IV antibiotic -Infectious disease on board Acute kidney injury -Patient having normal kidney function a few weeks ago when admitted, nephrology on board -Continue IV hydration -Further recommendations per nephrology History of cystic lung disease, with chronic bloody cough -Pulmonology well aware of patient's condition -Breathing treatments as needed -Patient refused embolization for bloody cough on previous hospitalization per pulmonology -Still with secretions History of COPD -Manage as per pulmonology Anemia -We will closely monitor and transfuse as needed, no overt signs of GI bleed -Currently hemoglobin stable -Iron supplementation per nephrology generalized weakness - secondary to above issues - improving Disposition -Continue IV antibiotics, PT will need to continue to see patient, patient is not near baseline, patient believes he can get better in a few days however is open to the idea of usp facility if he does not improve well enough in a couple days. RAUL CRANE Aug 17, 2018 12:21
[2018-08-17] MEDS: SOD FERRIC GLUC COMPLX 125 MG in SOD CHLORIDE 0.9% 100 ML IVPB SCH (13:36)
--- NOTE | 2018-08-17 15:09 | CONS ---
Consult Date/Type/Reason Admit Date/Time Aug 10, 2018 at 17:36 Initial Consult Date Type of Consultation: Pulm Date/Time of Note DATE: 08/17/18 TIME: 15:08 Subjective No events. On trach collar. Objective Vitals Vital Signs Date Temp Pulse Resp B/P (MAP) Pulse Ox O2 O2 Flow FiO2 Time Delivery Rate 08/17/18 98 7.0 28 13:10 08/17/18 80 20 Aerosol 13:10 08/17/18 98.0 129/73 11:46 (91) Intake and Output 08/16/18 08/16/18 08/17/18 1515:00 23:00 07:00 IntakeIntake Total 800 ml 250 ml OutputOutput Total 600 ml 1100 ml BalanceBalance 200 ml -850 ml Exam HEENT: Neck supple; no JVD; no LAD; + trach CVS: RRR, S1 and S2 CHEST: Decreased BS right side ABD: Soft, NT, + BS EXT: No c/c/e Results/Medications Result Diagram: 08/17/1817 08/17/18 0517 Results 24 hrs Laboratory Tests Test 08/17/18 05:17 White Blood Count 4.4 L Red Blood Count 4.29 L Hemoglobin 10.2 L Hematocrit 33.4 L Mean Corpuscular Volume 77.9 L Mean Corpuscular Hemoglobin 23.8 L Mean Corpuscular Hemoglobin Concent 30.5 L Red Cell Distribution Width 19.9 H Platelet Count 286 Mean Platelet Volume 9.9 Immature Granulocytes % 0.500 H Neutrophils % 54.0 Lymphocytes % 24.0 Monocytes % 15.1 H Eosinophils % 5.9 Basophils % 0.5 Nucleated Red Blood Cells % 0.0 Immature Granulocytes # 0.020 Neutrophils # 2.4 Lymphocytes # 1.1 Monocytes # 0.7 Eosinophils # 0.3 Basophils # 0.0 Nucleated Red Blood Cells # 0.0 Sodium Level 141 Potassium Level 4.6 Chloride Level 103 Carbon Dioxide Level 32 H Anion Gap 6 Blood Urea Nitrogen 8 Creatinine 0.58 L Est Glomerular Filtrat Rate mL/min > 60 Glucose Level 87 Calcium Level 9.6 Phosphorus Level 3.7 Magnesium Level 2.0 Home Meds Active Scripts Levofloxacin* (Levofloxacin*) 750 Mg Tablet, 750 MG PO DAILY, #10 TAB Prov:ANA CARRANZA MD 07/21/18 Reported Medications Pantoprazole* (Pantoprazole*) 40 Mg Tablet.dr, 40 MG GTB AC BREAKFAST, TAB 07/17/18 Clonidine Hcl* (Clonidine Hcl*) 0.1 Mg Tab, 0.1 MG GTB NEEDED, TAB 07/17/18 Hydralazine Hcl* (Hydralazine Hcl*) 25 Mg Tab, 25 MG GTB Q8 PRN for NEEDED, #90 TAB 07/17/18 Gabapentin* (Gabapentin*) 800 Mg Tablet, 800 MG GTB TID, #90 TAB 07/17/18 Alprazolam* (Xanax*) 2 Mg Tablet, 2 MG GTB Q8H PRN for ANXIETY, TAB 07/17/18 Hydrocodone/Acetaminophen ([place] 10-325 Tablet) 1 Each Tablet, 1 EACH GTB Q6H PRN for NEEDED, TAB 07/17/18 Medications Current Medications Ondansetron HCl (Zofran Inj) 4 mg Q6H PRN IV NAUSEA AND/OR VOMITING; Start 08/10/18 at 18:00 Acetaminophen (Tylenol Liquid) 650 mg Q6H PRN PO PAIN LEVEL 1-3 OR FEVER; Start 08/10/18 at 18:00 Morphine Sulfate (morphine) 2 mg Q4H PRN IV PAIN LEVEL 7-10 Last administered on 08/17/18at 13:35; Admin Dose 2 MG; Start 08/10/18 at 18:00 Pantoprazole (Protonix Iv) 40 mg DAILY@06 IV Last administered on 08/17/18at 04:59; Admin Dose 40 MG; Start 08/11/18 at 06:00 Heparin Sodium (Porcine) (Heparin (5000 Units/1ml)) 5,000 unit Q12 SC Last administered on 08/17/18at 09:59; Admin Dose 5,000 UNIT; Start 08/10/18 at 21:00 Lorazepam (Ativan) 0.5 mg Q6H PRN IV PRN Last administered on 08/13/18at 21:12; Admin Dose 0.5 MG; Start 08/11/18 at 00:00 Albuterol/ Ipratropium (Duoneb) 3 ml Q6H RESP THERAPY HHN Last administered on 08/17/18at 13:05; Admin Dose 3 ML; Start 08/12/18 at 14:00 Doxycycline Hyclate 100 mg/ Sodium Chloride 250 ml @ 250 mls/hr Q12 IVPB Last administered on 08/17/18 09:17; Admin Dose 250 MLS/HR; Start 08/12/18 at 16:00 Mupirocin (Bactroban) 1 applic BID TOP Last administered on 08/17/18 09:20; Admin Dose 1 APPLIC; Start 08/12/18 at 21:00 Dextrose 1,000 ml @ 20 mls/hr Q24H IV Last administered on 08/17/18 09:24; Admin Dose 20 MLS/HR; Start 08/15/18 at 09:00 Gabapentin (Neurontin) 600 mg TID PO Last administered on 08/17/18 13:37; Admin Dose 600 MG; Start 08/15/18 at 13:00 Gentamicin Sulfate (Gentamicin Iv Per Pharmacy) GENTAMICIN PER PHARMACY NOTE XX ; Start 08/15/18 at 12:00 Colistimethate Sodium (Colistin Inhal) 75 mg BID RESP THERAPY NEB Last administered on 08/17/18 08:12; Admin Dose 75 MG; Start 08/15/18 at 20:00 Labetalol HCl (Labetalol) 10 mg Q4H PRN IV sbp >160 Last administered on 08/15/18 12:48; Admin Dose 10 MG; Start 08/15/18 at 12:30 Hydralazine HCl (Apresoline) 10 mg Q4H PRN IV sbp >160; Start 08/15/18 at 16:00 Clonidine (Catapres) 0.1 mg Q6H PRN PO sbp >160 Last administered on 08/16/18at 15:46; Admin Dose 0.1 MG; Start 08/15/18 at 16:00 Enalaprilat (Vasotec Iv) 0.625 mg Q6H PRN IV sbp >160; Start 08/15/18 at 16:00 Amlodipine Besylate (Norvasc) 10 mg DAILY PO Last administered on 08/17/18 09:18; Admin Dose 10 MG; Start 08/16/18 at 09:00 Lisinopril (Zestril) 20 mg DAILY PO Last administered on 08/17/18 09:18; Admin Dose 20 MG; Start 08/16/18 at 09:00 Gentamicin Sulfate 360 mg/ Dextrose 109 ml @ 103.75 mls/ hr Q36H IVPB ; Start 08/18/18 at 03:00 Alteplase, Recombinant (Cathflo (Activase)) 2 mg MAY REPEAT X1 PRN CATHETER IF CATHETER REMAINS OCCULUDED Last administered on 08/17/18at 05:56; Admin Dose 2 MG; Start 08/17/18 at 05:30 Docusate Sodium (Colace) 100 mg BID PO ; Start 08/17/18 at 21:00 Assessment/Plan Assessment/Plan (Daily) IMP: 1. Hemoptysis 2. 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 Chronic Resp Failure RECS: 1. Follow hemoptysis quantity 2. CPT suctioning/BDs 3. Mobilize OOB 4. Abx 5. Titrate FiO2 AZRA SALDANA MD Aug 17, 2018 15:09
[2018-08-17] MEDS: DOCUSATE SODIUM 100 MG CAP PO SCH (21:27)
[2018-08-18] VITALS (10 sets, daily range): BP systolic 111–135; BP diastolic 58–73; PULSE 78–132; RESP 18–19
[2018-08-18] MEDS: ALBUTEROL/IPRATROPIUM (NEB) 3 ML AMP HHN SCH ×4 (01:41→19:49)
[2018-08-18] MEDS: morphine 2 MG INJ IV PRN ×6 (02:01→22:32)
[2018-08-18] MEDS: GENTAMICIN 360 MG in DEXTROSE 5% 100 ML IVPB SCH (03:17)
[2018-08-18] MEDS: PANTOPRAZOLE 40 MG INJ IV SCH (05:53)
[2018-08-18] MEDS: COLISTIMETHATE (25 MG/ML INHAL SYG) NEB SCH ×2 (08:56→20:03)
[2018-08-18] MEDS: DOXYCYCLINE 100 MG in SOD CHLORIDE 0.9% 250 ML IVPB SCH ×2 (09:24→22:31)
[2018-08-18] MEDS: GABAPENTIN 300 MG CAP PO SCH ×3 (09:25→22:31)
[2018-08-18] MEDS: DOCUSATE SODIUM 100 MG CAP PO SCH ×2 (09:25→22:32)
[2018-08-18] MEDS: AMLODIPINE 10 MG TAB PO SCH (09:26)
[2018-08-18] MEDS: LISINOPRIL 20 MG TAB PO SCH (09:26)
[2018-08-18] MEDS: MUPIROCIN 2% 22 GM OINT TOP SCH ×2 (09:27→22:33)
--- NOTE | 2018-08-18 09:36 | PN ---
DATE: 08/18/2018 SUBJECTIVE: The patient is stable. No events overnight. OBJECTIVE: VITAL SIGNS: Blood pressure is 131/73, pulse 81, respirations 18, temperature 98.0. HEENT: Head is normocephalic. NECK: Supple. HEART: Regular rate. LUNGS: Show diminished breath sounds at the base. ABDOMEN: Soft, nontender to palpation. No rebound or guarding. EXTREMITIES: Negative for clubbing, cyanosis, no edema. DERMATOLOGIC: No rashes. MUSCULOSKELETAL: No joint effusion. NEUROLOGIC: No change in exam. MEDICATIONS: Reviewed. LABORATORY DATA: From 08/18/2018 was reviewed. ASSESSMENT AND PLAN: 1. Nonoliguric acute kidney injury with unknown baseline creatinine. Etiology is secondary to hemod ynamics, sepsis. Renal function is improved. Continue to monitor. 2. Anemia. Continue to monitor hemoglobin and hematocrit levels. 3. Mineral bone disorder, monitor calcium and phosphorus levels. 4. Sepsis, status post shock secondary to pneumonia. The patient is completing antibiotic course. 5. Hypernatremia, improved. Continue to encourage free water intake. We will discontinue D5 water. 6. Hypertension. Continue current blood pressure regimen. 7. Chronic respiratory failure, status post tracheostomy, currently stable in trach mask. 8. Dysphagia. Continue modified diet. 9. Encephalopathy, etiology is toxic metabolic. Continue to monitor. 10. History of chronic obstructive pulmonary disease. 11. History of lung disease. 12. Hypomagnesemia. Continue to monitor and replete as needed. Dictated By: INES MOREIRA DO NR/NTS Conf#: [id number] DID#: [id number] CC: FRANKO SAUCEDA MD; CICI KEARNEY MD; INES MOREIRA DO;*EndCC*
[2018-08-18] MEDS: HEPARIN 5,000 UNIT/1 ML VIAL SC SCH ×2 (09:39→22:55)
--- NOTE | 2018-08-18 10:56 | PN ---
Date/Time of Note Date/Time of Note DATE: 08/18/18 TIME: 10:56 Assessment/Plan VTE Prophylaxis Risk score (from Ns)>0 risk: 9 SCD applied (from [facility]): Yes Pharmacological prophylaxis: NA/contraindicated Pharm contraindication: bleeding Lines/Catheters [facility]from [facility] Central Line Central line still needed: Yes Urinary Cath still in place: No Assessment/Plan Assessment/Plan 1. Acute hypoxic respiratory failure - resolved - patient doing well aerosol mask - continue aspiration precautions - Pulm consultation appreciated and cleared for discharge 2. Acute encephalopathy, resolved - back to baseline 3. Septic shock, resolved - ID on board and appreciate recommendations - BP stable and remains afebrile 4. Right-sided pneumonia - Likely aspiration due to decompensation at home - ID on board and will touch base on antibiotics for discharge planning 5. Acute kidney injury - Nephrology consultation appreciated - back to baseline 6. History of cystic lung disease, with chronic bloody cough - Stable - continue neb treatments - Pulm on board 7. History of COPD - Manage as per pulmonology 8. Anemia - stable - no need for transfusions at this time 9. Disposition - Will touch base with ID regarding antibiotic recommendations for d/c planning - If remains stable, will d/c in the am Result Diagram: 08/18/18 0630 08/18/18 0630 Results 24hrs Laboratory Tests Test 08/18/18 06:30 White Blood Count 6.2 # Red Blood Count 3.90 L Hemoglobin 9.2 L Hematocrit 30.8 L Mean Corpuscular Volume 79.0 L Mean Corpuscular Hemoglobin 23.6 L Mean Corpuscular Hemoglobin Concent 29.9 L Red Cell Distribution Width 20.6 H Platelet Count 298 Mean Platelet Volume 10.4 Immature Granulocytes % 0.500 H Neutrophils % 63.4 Lymphocytes % 19.2 Monocytes % 11.6 H Eosinophils % 4.7 Basophils % 0.6 Nucleated Red Blood Cells % 0.0 Immature Granulocytes # 0.030 Neutrophils # 3.9 Lymphocytes # 1.2 Monocytes # 0.7 Eosinophils # 0.3 Basophils # 0.0 Nucleated Red Blood Cells # 0.0 Sodium Level 140 Potassium Level 4.1 Chloride Level 99 Carbon Dioxide Level 36 H Anion Gap 5 Blood Urea Nitrogen 9 Creatinine 0.78 Est Glomerular Filtrat Rate mL/min > 60 Glucose Level 152 Calcium Level 9.6 Phosphorus Level 3.6 Magnesium Level 1.8 Subjective 24 Hr Interval Summary Free Text/Dictation Patient states hes feeling better and denies any acute issues or overnight events. No respiratory issues but still complaining of pain. Exam/Review of Systems Exam Vitals Vital Signs Date Temp Pulse Resp B/P (MAP) Pulse Ox O2 O2 Flow FiO2 Time Delivery Rate 08/18/18 106 08:01 08/18/18 18 96 Aerosol 7.0 28 08:00 Mask 08/18/18 98.0 131/73 07:38 (92) Intake and Output 08/17/18 08/17/18 08/18/18 1515:00 23:00 07:00 IntakeIntake Total 800 ml 1000 ml OutputOutput Total 1080 ml 430 ml BalanceBalance -280 ml 570 ml Exam General: Patient is laying in bed. no acute distress. Eyes: EOMI, pupils reactive to light Neck: Supple, nontender, midline Respiratory: Clear to auscultation bilaterally. diminished but no wheezing or rhonchi Cardiovascular: regular rate and rhythm, no obvious murmurs Gastrointestinal: soft, non-tender to palpation, bowel sounds heard. Neurological: Moves all extremities spontaneously Skin: No new skin lesions Results Results 24hrs Laboratory Tests Test 08/18/18 06:30 White Blood Count 6.2 # Red Blood Count 3.90 L Hemoglobin 9.2 L Hematocrit 30.8 L Mean Corpuscular Volume 79.0 L Mean Corpuscular Hemoglobin 23.6 L Mean Corpuscular Hemoglobin Concent 29.9 L Red Cell Distribution Width 20.6 H Platelet Count 298 Mean Platelet Volume 10.4 Immature Granulocytes % 0.500 H Neutrophils % 63.4 Lymphocytes % 19.2 Monocytes % 11.6 H Eosinophils % 4.7 Basophils % 0.6 Nucleated Red Blood Cells % 0.0 Immature Granulocytes # 0.030 Neutrophils # 3.9 Lymphocytes # 1.2 Monocytes # 0.7 Eosinophils # 0.3 Basophils # 0.0 Nucleated Red Blood Cells # 0.0 Sodium Level 140 Potassium Level 4.1 Chloride Level 99 Carbon Dioxide Level 36 H Anion Gap 5 Blood Urea Nitrogen 9 Creatinine 0.78 Est Glomerular Filtrat Rate mL/min > 60 Glucose Level 152 Calcium Level 9.6 Phosphorus Level 3.6 Magnesium Level 1.8 Medications Medication Current Medications Ondansetron HCl (Zofran Inj) 4 mg Q6H PRN IV NAUSEA AND/OR VOMITING; Start 08/10/18 at 18:00 Acetaminophen (Tylenol Liquid) 650 mg Q6H PRN PO PAIN LEVEL 1-3 OR FEVER; Start 08/10/18 at 18:00 Morphine Sulfate (morphine) 2 mg Q4H PRN IV PAIN LEVEL 7-10 Last administered on 08/18/18 10:05; Admin Dose 2 MG; Start 08/10/18 at 18:00 Pantoprazole (Protonix Iv) 40 mg DAILY@06 IV Last administered on 08/18/18 05:53; Admin Dose 40 MG; Start 08/11/18 at 06:00 Heparin Sodium (Porcine) (Heparin (5000 Units/1ml)) 5,000 unit Q12 SC Last administered on 08/18/18 09:39; Admin Dose 5,000 UNIT; Start 08/10/18 at 21:00 Lorazepam (Ativan) 0.5 mg Q6H PRN IV PRN Last administered on 08/13/18 21:12; Admin Dose 0.5 MG; Start 08/11/18 at 00:00 Albuterol/ Ipratropium (Duoneb) 3 ml Q6H RESP THERAPY HHN Last administered on 08/18/18 07:56; Admin Dose 3 ML; Start 08/12/18 at 14:00 Doxycycline Hyclate 100 mg/ Sodium Chloride 250 ml @ 250 mls/hr Q12 IVPB Last administered on 08/18/18 09:24; Admin Dose 250 MLS/HR; Start 08/12/18 at 16:00 Mupirocin (Bactroban) 1 applic BID TOP Last administered on 08/18/18 09:27; Admin Dose 1 APPLIC; Start 08/12/18 at 21:00 Gabapentin (Neurontin) 600 mg TID PO Last administered on 08/18/18 09:25; Admin Dose 600 MG; Start 08/15/18 at 13:00 Gentamicin Sulfate (Gentamicin Iv Per Pharmacy) GENTAMICIN PER PHARMACY NOTE XX ; Start 08/15/18 at 12:00 Colistimethate Sodium (Colistin Inhal) 75 mg BID RESP THERAPY NEB Last administered on 08/18/18 08:56; Admin Dose 75 MG; Start 08/15/18 at 20:00 Labetalol HCl (Labetalol) 10 mg Q4H PRN IV sbp >160 Last administered on 08/15/18 12:48; Admin Dose 10 MG; Start 08/15/18 at 12:30 Hydralazine HCl (Apresoline) 10 mg Q4H PRN IV sbp >160; Start 08/15/18 at 16:00 Clonidine (Catapres) 0.1 mg Q6H PRN PO sbp >160 Last administered on 08/16/18at 15:46; Admin Dose 0.1 MG; Start 08/15/18 at 16:00 Enalaprilat (Vasotec Iv) 0.625 mg Q6H PRN IV sbp >160; Start 08/15/18 at 16:00 Amlodipine Besylate (Norvasc) 10 mg DAILY PO Last administered on 08/18/18 09:26; Admin Dose 10 MG; Start 08/16/18 at 09:00 Lisinopril (Zestril) 20 mg DAILY PO Last administered on 08/18/18 09:26; Admin Dose 20 MG; Start 08/16/18 at 09:00 Gentamicin Sulfate 360 mg/ Dextrose 109 ml @ 103.75 mls/ hr Q36H IVPB Last administered on 08/18/18 03:17; Admin Dose 103.75 MLS/HR; Start 08/18/18 at 03 :00 Alteplase, Recombinant (Cathflo (Activase)) 2 mg MAY REPEAT X1 PRN CATHETER IF CATHETER REMAINS OCCULUDED Last administered on 08/17/18 05:56; Admin Dose 2 MG; Start 08/17/18 at 05:30 Docusate Sodium (Colace) 100 mg BID PO Last administered on 08/18/18 09:25; Admin Dose 100 MG; Start 08/17/18 at 21:00 FRANKO SAUCEDA MD Aug 18, 2018 10:56
--- NOTE | 2018-08-18 11:41 | CONS ---
Consult Date/Type/Reason Admit Date/Time Aug 10, 2018 at 17:36 Initial Consult Date Type of Consult Pulmonary Date/Time of Note DATE: 08/18/18 TIME: 11:38 Subjective Patient appears comfortable this morning no respiratory distress. Objective Vital Signs Date Temp Pulse Resp B/P (MAP) Pulse Ox O2 O2 Flow FiO2 Time Delivery Rate 08/18/18 106 08:01 08/18/18 18 96 Aerosol 7.0 28 08:00 Mask 08/18/18 98.0 131/73 07:38 (92) Intake and Output 08/17/18 08/17/18 08/18/18 1515:00 23:00 07:00 IntakeIntake Total 800 ml 1000 ml OutputOutput Total 1080 ml 430 ml BalanceBalance -280 ml 570 ml Exam GENERAL: VITAL SIGNS: per chart NECK: Supple. No JVD or lymphadenopathy. Trach site clean and intact CARDIAC EXAM: S1, S2. No added sounds or murmurs. CHEST: Diminished air entry bilaterally ABDOMEN: Soft, nontender. No guarding or rebound. EXTREMITIES: No cyanosis, clubbing or edema. NEUROLOGIC: Generalized weakness. No focal deficits. Vent Setting Ventilator Support Mode: AC Fraction of Inspired Oxygen pe: 28 Positive End Expiratory Pressu: 5.0 Results/Medications Result Diagram: 08/18/18 0630 08/18/18 0630 Results 24 hrs Laboratory Tests Test 08/18/18 06:30 White Blood Count 6.2 # Red Blood Count 3.90 L Hemoglobin 9.2 L Hematocrit 30.8 L Mean Corpuscular Volume 79.0 L Mean Corpuscular Hemoglobin 23.6 L Mean Corpuscular Hemoglobin Concent 29.9 L Red Cell Distribution Width 20.6 H Platelet Count 298 Mean Platelet Volume 10.4 Immature Granulocytes % 0.500 H Neutrophils % 63.4 Lymphocytes % 19.2 Monocytes % 11.6 H Eosinophils % 4.7 Basophils % 0.6 Nucleated Red Blood Cells % 0.0 Immature Granulocytes # 0.030 Neutrophils # 3.9 Lymphocytes # 1.2 Monocytes # 0.7 Eosinophils # 0.3 Basophils # 0.0 Nucleated Red Blood Cells # 0.0 Sodium Level 140 Potassium Level 4.1 Chloride Level 99 Carbon Dioxide Level 36 H Anion Gap 5 Blood Urea Nitrogen 9 Creatinine 0.78 Est Glomerular Filtrat Rate mL/min > 60 Glucose Level 152 Calcium Level 9.6 Phosphorus Level 3.6 Magnesium Level 1.8 Medications Current Medications Ondansetron HCl (Zofran Inj) 4 mg Q6H PRN IV NAUSEA AND/OR VOMITING; Start 08/10/18 at 18:00 Acetaminophen (Tylenol Liquid) 650 mg Q6H PRN PO PAIN LEVEL 1-3 OR FEVER; Start 08/10/18 at 18:00 Morphine Sulfate (morphine) 2 mg Q4H PRN IV PAIN LEVEL 7-10 Last administered on 08/18/18 10:05; Admin Dose 2 MG; Start 08/10/18 at 18:00 Pantoprazole (Protonix Iv) 40 mg DAILY@06 IV Last administered on 08/18/18 05:53; Admin Dose 40 MG; Start 08/11/18 at 06:00 Heparin Sodium (Porcine) (Heparin (5000 Units/1ml)) 5,000 unit Q12 SC Last administered on 08/18/18 09:39; Admin Dose 5,000 UNIT; Start 08/10/18 at 21:00 Lorazepam (Ativan) 0.5 mg Q6H PRN IV PRN Last administered on 08/13/18 21:12; Admin Dose 0.5 MG; Start 08/11/18 at 00:00 Albuterol/ Ipratropium (Duoneb) 3 ml Q6H RESP THERAPY HHN Last administered on 08/18/18 07:56; Admin Dose 3 ML; Start 08/12/18 at 14:00 Doxycycline Hyclate 100 mg/ Sodium Chloride 250 ml @ 250 mls/hr Q12 IVPB Last administered on 08/18/18 09:24; Admin Dose 250 MLS/HR; Start 08/12/18 at 16:00 Mupirocin (Bactroban) 1 applic BID TOP Last administered on 08/18/18 09:27; Admin Dose 1 APPLIC; Start 08/12/18 at 21:00 Gabapentin (Neurontin) 600 mg TID PO Last administered on 08/18/18 09:25; Admin Dose 600 MG; Start 08/15/18 at 13:00 Gentamicin Sulfate (Gentamicin Iv Per Pharmacy) GENTAMICIN PER PHARMACY NOTE XX ; Start 08/15/18 at 12:00 Colistimethate Sodium (Colistin Inhal) 75 mg BID RESP THERAPY NEB Last administered on 4/29/19at 08:56; Admin Dose 75 MG; Start 08/15/18 at 20:00 Labetalol HCl (Labetalol) 10 mg Q4H PRN IV sbp >160 Last administered on 08/15/18at 12:48; Admin Dose 10 MG; Start 08/15/18 at 12:30 Hydralazine HCl (Apresoline) 10 mg Q4H PRN IV sbp >160; Start 08/15/18 at 16:00 Clonidine (Catapres) 0.1 mg Q6H PRN PO sbp >160 Last administered on 08/16/18at 15:46; Admin Dose 0.1 MG; Start 08/15/18 at 16:00 Enalaprilat (Vasotec Iv) 0.625 mg Q6H PRN IV sbp >160; Start 08/15/18 at 16:00 Amlodipine Besylate (Norvasc) 10 mg DAILY PO Last administered on 08/18/18at 09:26; Admin Dose 10 MG; Start 08/16/18 at 09:00 Lisinopril (Zestril) 20 mg DAILY PO Last administered on 08/18/18at 09:26; Admin Dose 20 MG; Start 08/16/18 at 09:00 Gentamicin Sulfate 360 mg/ Dextrose 109 ml @ 103.75 mls/ hr Q36H IVPB Last administered on 08/18/18at 03:17; Admin Dose 103.75 MLS/HR; Start 08/18/18 at 03:00 Alteplase, Recombinant (Cathflo (Activase)) 2 mg MAY REPEAT X1 PRN CATHETER IF CATHETER REMAINS OCCULUDED Last administered on 08/17/18at 05:56; Admin Dose 2 MG; Start 08/17/18 at 05:30 Docusate Sodium (Colace) 100 mg BID PO Last administered on 08/18/18at 09:25; Admin Dose 100 MG; Start 08/17/18 at 21:00 Assessment/Plan Hospital Course (Demo Recall) IMP: 1. Hemoptysis 2. 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 Chronic Resp Failure RECS: 1. Follow hemoptysis quantity 2. CPT suctioning/BDs 3. Mobilize OOB 4. Abx 5. Titrate FiO2 Discussed with patient's cousin at bedside. She is willing to be his full-time caregiver now DC planning. VAUGHN NICHOLS MD, [facility] Aug 18, 2018 11:41
--- NOTE | 2018-08-18 14:28 | CONS ---
Assessment/Plan Assessment/Plan Hospital Course (Demo Recall) Patient is awake in no distress, no fevers overnight. Sputum culture grew multidrug-resistant Pseudomonas and Acinetobacter Antimicrobials: Zosyn, doxycycline, topical Bactroban Indwelling: Tracheostomy Blood and urine cultures negative, MRSA swab positive Antimicrobials: Gentamicin, doxycycline, colistin inhalation Physical examination: This is a chronically ill appearing elderly - [place] man who is alert in no distress head atraumatic normocephalic sclera nonicteric vehicle mucosa dry neck is supple chest rise symmetrical breath sounds with scattered rhonchi. Heart: S1-S2. Abdomen soft bowel sounds present. Assessment: 1. Acute on chronic respiratory failure 2. Healthcare associated pneumonia possibly aspiration 3. MRSA nares colonization 4. Cavitating lung disease 5. Anemia Plan: Remains stable, continue antibiotics, continue aspiration precautions Consultation Date/Type/Reason Admit Date/Time Aug 10, 2018 at 17:36 Initial Consult Date Type of Consult id Date/Time of Note DATE: 08/18/18 TIME: 14:27 Exam/Review of Systems Exam Vitals Vital Signs Date Temp Pulse Resp B/P (MAP) Pulse Ox O2 O2 Flow FiO2 Time Delivery Rate 08/18/18 92 12:01 08/18/18 98.0 18 130/67 98 11:46 (88) 08/18/18 Aerosol 7.0 28 08:00 Mask Intake and Output 08/17/18 08/17/18 08/18/18 1414:59 22:59 06:59 IntakeIntake Total 50 ml 800 ml 1000 ml OutputOutput Total 1080 ml 430 ml BalanceBalance 50 ml -280 ml 570 ml Results Result Diagram: 08/18/18 0630 08/18/18 0630 Results 24hrs Laboratory Tests Test 08/18/18 06:30 White Blood Count 6.2 # Red Blood Count 3.90 L Hemoglobin 9.2 L Hematocrit 30.8 L Mean Corpuscular Volume 79.0 L Mean Corpuscular Hemoglobin 23.6 L Mean Corpuscular Hemoglobin Concent 29.9 L Red Cell Distribution Width 20.6 H Platelet Count 298 Mean Platelet Volume 10.4 Immature Granulocytes % 0.500 H Neutrophils % 63.4 Lymphocytes % 19.2 Monocytes % 11.6 H Eosinophils % 4.7 Basophils % 0.6 Nucleated Red Blood Cells % 0.0 Immature Granulocytes # 0.030 Neutrophils # 3.9 Lymphocytes # 1.2 Monocytes # 0.7 Eosinophils # 0.3 Basophils # 0.0 Nucleated Red Blood Cells # 0.0 Sodium Level 140 Potassium Level 4.1 Chloride Level 99 Carbon Dioxide Level 36 H Anion Gap 5 Blood Urea Nitrogen 9 Creatinine 0.78 Est Glomerular Filtrat Rate mL/min > 60 Glucose Level 152 Calcium Level 9.6 Phosphorus Level 3.6 Magnesium Level 1.8 Medications Medication Current Medications Ondansetron HCl (Zofran Inj) 4 mg Q6H PRN IV NAUSEA AND/OR VOMITING; Start 08/10/18 at 18:00 Acetaminophen (Tylenol Liquid) 650 mg Q6H PRN PO PAIN LEVEL 1-3 OR FEVER; Start 08/10/18 at 18:00 Morphine Sulfate (morphine) 2 mg Q4H PRN IV PAIN LEVEL 7-10 Last administered on 08/18/18 10:05; Admin Dose 2 MG; Start 08/10/18 at 18:00 Pantoprazole (Protonix Iv) 40 mg DAILY@06 IV Last administered on 08/18/18 05:53; Admin Dose 40 MG; Start 08/11/18 at 06:00 Heparin Sodium (Porcine) (Heparin (5000 Units/1ml)) 5,000 unit Q12 SC Last administered on 08/18/18 09:39; Admin Dose 5,000 UNIT; Start 08/10/18 at 21:00 Lorazepam (Ativan) 0.5 mg Q6H PRN IV PRN Last administered on 08/13/18 21:12; Admin Dose 0.5 MG; Start 08/11/18 at 00:00 Albuterol/ Ipratropium (Duoneb) 3 ml Q6H RESP THERAPY HHN Last administered on 08/18/18 07:56; Admin Dose 3 ML; Start 08/12/18 at 14:00 Doxycycline Hyclate 100 mg/ Sodium Chloride 250 ml @ 250 mls/hr Q12 IVPB Last administered on 08/18/18 09:24; Admin Dose 250 MLS/HR; Start 08/12/18 at 16:00 Mupirocin (Bactroban) 1 applic BID TOP Last administered on 08/18/18 09:27; Admin Dose 1 APPLIC; Start 08/12/18 at 21:00 Gabapentin (Neurontin) 600 mg TID PO Last administered on 08/18/18 09:25; Admin Dose 600 MG; Start 08/15/18 at 13:00 Gentamicin Sulfate (Gentamicin Iv Per Pharmacy) GENTAMICIN PER PHARMACY NOTE XX ; Start 08/15/18 at 12:00 Colistimethate Sodium (Colistin Inhal) 75 mg BID RESP THERAPY NEB Last administered on 08/18/18 08:56; Admin Dose 75 MG; Start 08/15/18 at 20:00 Labetalol HCl (Labetalol) 10 mg Q4H PRN IV sbp >160 Last administered on 08/15/18 12:48; Admin Dose 10 MG; Start 08/15/18 at 12:30 Hydralazine HCl (Apresoline) 10 mg Q4H PRN IV sbp >160; Start 08/15/18 at 16:00 Clonidine (Catapres) 0.1 mg Q6H PRN PO sbp >160 Last administered on 08/16/18 15:46; Admin Dose 0.1 MG; Start 08/15/18 at 16:00 Enalaprilat (Vasotec Iv) 0.625 mg Q6H PRN IV sbp >160; Start 08/15/18 at 16:00 Amlodipine Besylate (Norvasc) 10 mg DAILY PO Last administered on 08/18/18 09:26; Admin Dose 10 MG; Start 08/16/18 at 09:00 Lisinopril (Zestril) 20 mg DAILY PO Last administered on 08/18/18 09:26; Admin Dose 20 MG; Start 08/16/18 at 09:00 Gentamicin Sulfate 360 mg/ Dextrose 109 ml @ 103.75 mls/ hr Q36H IVPB Last administered on 08/18/18 03:17; Admin Dose 103.75 MLS/HR; Start 08/18/18 at 03:00 Alteplase, Recombinant (Cathflo (Activase)) 2 mg MAY REPEAT X1 PRN CATHETER IF CATHETER REMAINS OCCULUDED Last administered on 08/17/18 05:56; Admin Dose 2 MG; Start 08/17/18 at 05:30 Docusate Sodium (Colace) 100 mg BID PO Last administered on 08/18/18 09:25; Admin Dose 100 MG; Start 08/17/18 at 21:00 PATEL DUTTA NP Aug 18, 2018 14:28
[2018-08-18] MEDS ORDERED: HYDROCODONE/APAP (5/325) TAB PO PRN (14:30)
[2018-08-19] VITALS (11 sets, daily range): BP systolic 110–132; BP diastolic 56–75; PULSE 75–100; RESP 18–20
[2018-08-19] MEDS: ALBUTEROL/IPRATROPIUM (NEB) 3 ML AMP HHN SCH ×5 (02:06→20:00)
[2018-08-19] MEDS: morphine 2 MG INJ IV PRN ×2 (02:59→06:24)
[2018-08-19] MEDS: PANTOPRAZOLE 40 MG INJ IV SCH (05:23)
[2018-08-19] MEDS: COLISTIMETHATE (25 MG/ML INHAL SYG) NEB SCH ×2 (08:33→20:00)
--- NOTE | 2018-08-19 09:06 | PN ---
DATE: 08/19/2018 SUBJECTIVE: The patient is stable, no events overnight. No fevers, chills, nausea, or vomiting. OBJECTIVE: VITAL SIGNS: Blood pressure is 118/67, respirations 18, pulse 78, temperature 98.4. HEENT: Head is normocephalic. NECK: Supple. HEART: Regular rate. LUNGS: Show diminished breath sounds at the base. ABDOMEN: Soft, nontender to palpation. No rebound or guarding. EXTREMITIES: Negative for clubbing, cyanosis, no edema. DERMATOLOGIC: No rashes. MUSCULOSKELETAL: No joint effusion. NEUROLOGIC: No change in exam. MEDICATIONS: The patient's medications have been reviewed. LABORATORY DATA: Reviewed. ASSESSMENT AND PLAN: 1. Nonoliguric acute kidney injury with unknown baseline creatinine. Etiology is secondary to hemod ynamics, sepsis. Renal function is improving. Continue current treatment plan. 2. Anemia. Monitor hemoglobin and hematocrit levels. 3. Mineral bone disorder. Monitor calcium and phosphorus levels. 4. Sepsis status post shock secondary to pneumonia. The patient is completing antibiotic course. 5. Hypernatremia, improved. Continue to encourage free water intake. 6. Hypertension. Continue current blood pressure regimen. 7. Chronic respiratory failure, status post tracheostomy, currently stable on trach mask. 8. Dysphagia. Continue modified diet. 9. Encephalopathy, etiology is toxic metabolic. Mental status is improving. 10. History of chronic obstructive pulmonary disease. 11. Hypomagnesemia. Continue to monitor and replete as needed. Dictated By: INES MOREIRA DO NR/NTS Conf#: [id number] DID#: [id number] CC: CICI KEARNEY MD; INES MOREIRA DO; FRANKO SAUCEDA MD;*EndCC*
[2018-08-19] MEDS: DOCUSATE SODIUM 100 MG CAP PO SCH ×2 (09:12→21:00)
[2018-08-19] MEDS: LISINOPRIL 20 MG TAB PO SCH (09:12)
[2018-08-19] MEDS: GABAPENTIN 300 MG CAP PO SCH ×3 (09:12→21:00)
[2018-08-19] MEDS: DOXYCYCLINE 100 MG in SOD CHLORIDE 0.9% 250 ML IVPB SCH ×2 (09:12→21:00)
[2018-08-19] MEDS: MUPIROCIN 2% 22 GM OINT TOP SCH ×2 (09:13→21:00)
[2018-08-19] MEDS: AMLODIPINE 10 MG TAB PO SCH (09:13)
[2018-08-19] MEDS: HEPARIN 5,000 UNIT/1 ML VIAL SC SCH ×2 (09:24→21:00)
--- NOTE | 2018-08-19 09:54 | PN ---
Date/Time of Note Date/Time of Note DATE: 08/19/18 TIME: 09:46 Assessment/Plan VTE Prophylaxis Risk score (from Ns)>0 risk: 8 SCD applied (from Ns): Yes Pharmacological prophylaxis: NA/contraindicated Pharm contraindication: bleeding Lines/Catheters [facility] Central Line Central line still needed: Yes Urinary Cath still in place: No Assessment/Plan Assessment/Plan 1. Acute hypoxic respiratory failure- resolved - patient doing well aerosol mask - continue aspiration precautions - Pulm consultation appreciated and cleared for discharge 2. Acute encephalopathy, resolved - back to baseline 3. Septic shock, resolved - ID on board and appreciate recommendations - BP stable and remains afebrile 4. Right-sided pneumonia - Likely aspiration due to decompensation at home - ID on board and recommending Gentamicin until 08/21. 5. Acute kidney injury- resolved - Nephrology consultation appreciated - back to baseline 6. History of cystic lung disease, with chronic bloody cough - Stable - continue neb treatments - Pulm on board 7. History of COPD - Manage as per pulmonology 8. Anemia - stable - no need for transfusions at this time 9. Disposition - Will consult CM regarding Gentamicin until 08/21 - Medically stable for discharge home Result Diagram: 08/18/18 0630 08/19/18 0523 Results 24hrs Laboratory Tests Test 08/19/18 05:23 Blood Urea Nitrogen 14 Creatinine 0.92 Subjective 24 Hr Interval Summary Free Text/Dictation Patient doing well and denies any acute issues. No respiratory distress appreciated. Exam/Review of Systems Exam Vitals Vital Signs Date Temp Pulse Resp B/P (MAP) Pulse Ox O2 O2 Flow FiO2 Time Delivery Rate 08/19/18 84 18 100 Aerosol 5.0 28 08:33 Mask 08/19/18 98.4 118/67 07:36 (84) Intake and Output 08/18/18 08/18/18 08/19/18 1515:00 23:00 07:00 IntakeIntake Total 509 ml 700 ml 400 ml OutputOutput Total 1300 ml 1180 ml BalanceBalance 509 ml -600 ml -780 ml Exam General: Patient is laying in bed. no acute distress. Eyes: EOMI, pupils reactive to light Neck: Supple, nontender, midline Respiratory: Diminished. no wheezing Cardiovascular: regular rate and rhythm, no obvious murmurs Gastrointestinal: soft, non-tender to palpation, bowel sounds heard. Neurological: Moves all extremities spontaneously Skin: No new skin lesions Results Results 24hrs Laboratory Tests Test 08/19/18 05:23 Blood Urea Nitrogen 14 Creatinine 0.92 Medications Medication Current Medications Ondansetron HCl (Zofran Inj) 4 mg Q6H PRN IV NAUSEA AND/OR VOMITING; Start 08/10/18 at 18:00 Acetaminophen (Tylenol Liquid) 650 mg Q6H PRN PO PAIN LEVEL 1-3 OR FEVER; Start 08/10/18 at 18:00 Morphine Sulfate (morphine) 2 mg Q4H PRN IV PAIN LEVEL 7-10 Last administered on 08/19/18 06:24; Admin Dose 2 MG; Start 08/10/18 at 18:00 Pantoprazole (Protonix Iv) 40 mg DAILY@06 IV Last administered on 08/19/18 05:23; Admin Dose 40 MG; Start 08/11/18 at 06:00 Heparin Sodium (Porcine) (Heparin (5000 Units/1ml)) 5,000 unit Q12 SC Last administered on 08/19/18 09:24; Admin Dose 5,000 UNIT; Start 08/10/18 at 21:00 Lorazepam (Ativan) 0.5 mg Q6H PRN IV PRN Last administered on 08/13/18 21:12; Admin Dose 0.5 MG; Start 08/11/18 at 00:00 Doxycycline Hyclate 100 mg/ Sodium Chloride 250 ml @ 250 mls/hr Q12 IVPB Last administered on 08/19/18 09:12; Admin Dose 250 MLS/HR; Start 08/12/18 at 16:00 Mupirocin (Bactroban) 1 applic BID TOP Last administered on 08/19/18 09:13; Admin Dose 1 APPLIC; Start 08/12/18 at 21:00 Gabapentin (Neurontin) 600 mg TID PO Last administered on 08/19/18 09:12; Admin Dose 600 MG; Start 08/15/18 at 13:00 Gentamicin Sulfate (Gentamicin Iv Per Pharmacy) GENTAMICIN PER PHARMACY NOTE XX ; Start 08/15/18 at 12:00 Colistimethate Sodium (Colistin Inhal) 75 mg BID RESP THERAPY NEB Last administered on 08/19/18 08:33; Admin Dose 75 MG; Start 08/15/18 at 20:00 Labetalol HCl (Labetalol) 10 mg Q4H PRN IV sbp >160 Last administered on 08/15/18at 12:48; Admin Dose 10 MG; Start 08/15/18 at 12:30 Hydralazine HCl (Apresoline) 10 mg Q4H PRN IV sbp >160; Start 08/15/18 at 16:00 Clonidine (Catapres) 0.1 mg Q6H PRN PO sbp >160 Last administered on 08/16/18at 15:46; Admin Dose 0.1 MG; Start 08/15/18 at 16:00 Enalaprilat (Vasotec Iv) 0.625 mg Q6H PRN IV sbp >160; Start 08/15/18 at 16:00 Amlodipine Besylate (Norvasc) 10 mg DAILY PO Last administered on 08/19/18at 09:13; Admin Dose 10 MG; Start 08/16/18 at 09:00 Lisinopril (Zestril) 20 mg DAILY PO Last administered on 08/19/18at 09:12; Admin Dose 20 MG; Start 08/16/18 at 09:00 Gentamicin Sulfate 360 mg/ Dextrose 109 ml @ 103.75 mls/ hr Q36H IVPB Last administered on 08/18/18 03:17; Admin Dose 103.75 MLS/HR; Start 08/18/18 at 03:00 Alteplase, Recombinant (Cathflo (Activase)) 2 mg MAY REPEAT X1 PRN CATHETER IF CATHETER REMAINS OCCULUDED Last administered on 08/17/18at 05:56; Admin Dose 2 MG; Start 08/17/18 at 05:30 Docusate Sodium (Colace) 100 mg BID PO Last administered on 08/19/18at 09:12; Admin Dose 100 MG; Start 08/17/18 at 21:00 Miscellaneous Information (*Rx Drug Level Order Reminder*) GENTAMICIN TROUGH ON @ 400 1400 ONCE XX ; Start 08/19/18 at 14:00; Stop 08/19/18 at 14:01 Acetaminophen/ Hydrocodone Bitart ([place] (5/325)) 1 tab Q4H PRN PO MODERATE PAIN LEVEL 4-6; Start 08/18/18 at 14:30 Albuterol/ Ipratropium (Duoneb) 3 ml Q6H RESP THERAPY HHN ; Start 08/19/18 at 08:00 FRANKO SAUCEDA MD Aug 19, 2018 09:54
[2018-08-19] MEDS ORDERED: IPRA3AMP29 HHN (10:03)
[2018-08-19] MEDS ORDERED: GABA-526 PO (10:03)
[2018-08-19] MEDS ORDERED: HYDR-3601 PO (10:03)
[2018-08-19] MEDS ORDERED: LISI-471 PO (10:03)
[2018-08-19] MEDS ORDERED: AMLO-147 PO (10:03)
--- NOTE | 2018-08-19 10:06 | PDOCDIS ---
Discharge Instructions DIAGNOSIS Discharge Diagnosis 1. Acute hypoxic respiratory failure- resolved 2. Acute encephalopathy, resolved 3. Septic shock, resolved 4. Right-sided pneumonia 5. Acute kidney injury- resolved 6. History of cystic lung disease, with chronic bloody cough 7. History of COPD 8. Anemia CONDITION [id number] Patient Condition: [id number] Stable HOME CARE INSTRUCTIONS: [id number] Diet Instructions: [id number] Low Fat /Cholesterol [id number] Special Diet: Auxzh9e nectar thickened FOLLOW UP/APPOINTMENTS Follow-up Plan 1. Follow up with your primary care physician in 1-2 weeks 2. Continue IV antibiotics until 08/21 3. Take all medications as prescribed for blood pressure control. Only take Clonidine or hydralazine if your blood pressure is running greater than 160 4. If experiencing any concerning symptoms, please go to your nearest emergency department FRANKO SAUCEDA MD Aug 19, 2018 10:06
--- NOTE | 2018-08-19 13:28 | CONS ---
Consult Date/Type/Reason Admit Date/Time Aug 10, 2018 at 17:36 Initial Consult Date Type of Consult Pulmonary Date/Time of Note DATE: 08/19/18 TIME: 13:27 Subjective Patient stable this morning. No respiratory distress. Objective Vital Signs Date Temp Pulse Resp B/P (MAP) Pulse Ox O2 O2 Flow FiO2 Time Delivery Rate 08/19/18 98.0 100 20 132/73 98 12:17 (92) 08/19/18 Aerosol 5.0 28 08:33 Mask Intake and Output 08/18/18 08/18/18 08/19/18 1515:00 23:00 07:00 IntakeIntake Total 509 ml 700 ml 400 ml OutputOutput Total 1300 ml 1180 ml BalanceBalance 509 ml -600 ml -780 ml Exam GENERAL: VITAL SIGNS: per chart NECK: Supple. No JVD or lymphadenopathy. Trach site clean and intact CARDIAC EXAM: S1, S2. No added sounds or murmurs. CHEST: Diminished air entry bilaterally ABDOMEN: Soft, nontender. No guarding or rebound. EXTREMITIES: No cyanosis, clubbing or edema. NEUROLOGIC: Generalized weakness. No focal deficits. Vent Setting Ventilator Support Mode: AC Fraction of Inspired Oxygen pe: 28 Positive End Expiratory Pressu: 5.0 Results/Medications Result Diagram: 08/18/18 0630 08/19/18 0523 Results 24 hrs Laboratory Tests Test 08/19/18 05:23 Blood Urea Nitrogen 14 Creatinine 0.92 Medications Current Medications Ondansetron HCl (Zofran Inj) 4 mg Q6H PRN IV NAUSEA AND/OR VOMITING; Start 08/10/18 at 18:00 Acetaminophen (Tylenol Liquid) 650 mg Q6H PRN PO PAIN LEVEL 1-3 OR FEVER; Start 08/10/18 at 18:00 Morphine Sulfate (morphine) 2 mg Q4H PRN IV PAIN LEVEL 7-10 Last administered on 08/19/18at 06:24; Admin Dose 2 MG; Start 08/10/18 at 18:00 Pantoprazole (Protonix Iv) 40 mg DAILY@06 IV Last administered on 08/19/18at 05:23; Admin Dose 40 MG; Start 08/11/18 at 06:00 Heparin Sodium (Porcine) (Heparin (5000 Units/1ml)) 5,000 unit Q12 SC Last administered on 08/19/18at 09:24; Admin Dose 5,000 UNIT; Start 08/10/18 at 21:00 Lorazepam (Ativan) 0.5 mg Q6H PRN IV PRN Last administered on 08/13/18 21:12; Admin Dose 0.5 MG; Start 08/11/18 at 00:00 Doxycycline Hyclate 100 mg/ Sodium Chloride 250 ml @ 250 mls/hr Q12 IVPB Last administered on 08/19/18 09:12; Admin Dose 250 MLS/HR; Start 08/12/18 at 16:00 Mupirocin (Bactroban) 1 applic BID TOP Last administered on 08/19/18 09:13; Admin Dose 1 APPLIC; Start 08/12/18 at 21:00 Gabapentin (Neurontin) 600 mg TID PO Last administered on 08/19/18 13:10; Admin Dose 600 MG; Start 08/15/18 at 13:00 Gentamicin Sulfate (Gentamicin Iv Per Pharmacy) GENTAMICIN PER PHARMACY NOTE XX ; Start 08/15/18 at 12:00 Colistimethate Sodium (Colistin Inhal) 75 mg BID RESP THERAPY NEB Last administered on 08/19/18 08:33; Admin Dose 75 MG; Start 08/15/18 at 20:00 Labetalol HCl (Labetalol) 10 mg Q4H PRN IV sbp >160 Last administered on 08/15/18 12:48; Admin Dose 10 MG; Start 08/15/18 at 12:30 Hydralazine HCl (Apresoline) 10 mg Q4H PRN IV sbp >160; Start 08/15/18 at 16:00 Clonidine (Catapres) 0.1 mg Q6H PRN PO sbp >160 Last administered on 08/16/18 15:46; Admin Dose 0.1 MG; Start 08/15/18 at 16:00 Enalaprilat (Vasotec Iv) 0.625 mg Q6H PRN IV sbp >160; Start 08/15/18 at 16:00 Amlodipine Besylate (Norvasc) 10 mg DAILY PO Last administered on 08/19/18 09:13; Admin Dose 10 MG; Start 08/16/18 at 09:00 Lisinopril (Zestril) 20 mg DAILY PO Last administered on 08/19/18 09:12; Admin Dose 20 MG; Start 08/16/18 at 09:00 Gentamicin Sulfate 360 mg/ Dextrose 109 ml @ 103.75 mls/ hr Q36H IVPB Last administered on 08/18/18at 03:17; Admin Dose 103.75 MLS/HR; Start 08/18/18 at 03:00 Alteplase, Recombinant (Cathflo (Activase)) 2 mg MAY REPEAT X1 PRN CATHETER IF CATHETER REMAINS OCCULUDED Last administered on 08/17/18at 05:56; Admin Dose 2 MG; Start 08/17/18 at 05:30 Docusate Sodium (Colace) 100 mg BID PO Last administered on 08/19/18at 09:12; Admin Dose 100 MG; Start 08/17/18 at 21:00 Miscellaneous Information (*Rx Drug Level Order Reminder*) GENTAMICIN TROUGH ON @ 400 1400 ONCE XX ; Start 08/19/18 at 14:00; Stop 08/19/18 at 14:01 Acetaminophen/ Hydrocodone Bitart ([place] (5/325)) 1 tab Q4H PRN PO MODERATE PAIN LEVEL 4-6 Last administered on 08/19/18at 11:37; Admin Dose 1 TAB; Start 08/18/18 at 14:30 Albuterol/ Ipratropium (Duoneb) 3 ml Q6H RESP THERAPY HHN ; Start 08/19/18 at 08:00 Assessment/Plan Hospital Course (Demo Recall) IMP: 1. Hemoptysis 2. 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 Chronic Resp Failure RECS: 1. Follow hemoptysis quantity 2. CPT suctioning/BDs 3. Mobilize OOB 4. Abx 5. Titrate FiO2 DC planning. VAUGHN NICHOLS MD, [facility] Aug 19, 2018 13:28
--- NOTE | 2018-08-19 15:27 | CONS ---
Assessment/Plan Assessment/Plan Hospital Course (Demo Recall) Awake, looks comfortable, no fevers Sputum culture grew multidrug-resistant Pseudomonas and Acinetobacter Antimicrobials: Zosyn, doxycycline, topical Bactroban Indwelling: Tracheostomy Blood and urine cultures negative, MRSA swab positive Antimicrobials: Gentamicin, doxycycline, colistin inhalation Physical examination: This is a chronically ill appearing elderly - [place] man who is alert in no distress head atraumatic normocephalic sclera nonicteric vehicle mucosa dry neck is supple chest rise symmetrical breath sounds with scattered rhonchi. Heart: S1-S2. Abdomen soft bowel sounds present. Assessment: 1. Acute on chronic respiratory failure 2. Healthcare associated pneumonia possibly aspiration 3. MRSA nares colonization 4. Cavitating lung disease 5. Anemia Plan: Remains stable, ok dc home on IV gentamicin to complete antibiotics Consultation Date/Type/Reason Admit Date/Time Aug 10, 2018 at 17:36 Initial Consult Date Type of Consult id Date/Time of Note DATE: 08/19/18 TIME: 15:25 Exam/Review of Systems Exam Vitals Vital Signs Date Temp Pulse Resp B/P (MAP) Pulse Ox O2 O2 Flow FiO2 Time Delivery Rate 08/19/18 83 20 100 Aerosol 5.0 28 14:05 Mask 08/19/18 98.0 132/73 12:17 (92) Intake and Output 08/18/18 08/18/18 08/19/18 1414:59 22:59 06:59 IntakeIntake Total 509 ml 700 ml 400 ml OutputOutput Total 1300 ml 1180 ml BalanceBalance 509 ml -600 ml -780 ml Results Result Diagram: 08/18/18 0630 08/19/18 0523 Results 24hrs Laboratory Tests Test 08/19/18 05:23 08/19/18 14:08 Blood Urea Nitrogen 14 Creatinine 0.92 Gentamicin Level Trough 0.7 L Medications Medication Current Medications Ondansetron HCl (Zofran Inj) 4 mg Q6H PRN IV NAUSEA AND/OR VOMITING; Start 08/10/18 at 18:00 Acetaminophen (Tylenol Liquid) 650 mg Q6H PRN PO PAIN LEVEL 1-3 OR FEVER; Start 08/10/18 at 18:00 Morphine Sulfate (morphine) 2 mg Q4H PRN IV PAIN LEVEL 7-10 Last administered on 08/19/18at 06:24; Admin Dose 2 MG; Start 08/10/18 at 18:00 Pantoprazole (Protonix Iv) 40 mg DAILY@06 IV Last administered on 08/19/18 05:23; Admin Dose 40 MG; Start 08/11/18 at 06:00 Heparin Sodium (Porcine) (Heparin (5000 Units/1ml)) 5,000 unit Q12 SC Last administered on 08/19/18 09:24; Admin Dose 5,000 UNIT; Start 08/10/18 at 21:00 Lorazepam (Ativan) 0.5 mg Q6H PRN IV PRN Last administered on 08/13/18 21:12; Admin Dose 0.5 MG; Start 08/11/18 at 00:00 Doxycycline Hyclate 100 mg/ Sodium Chloride 250 ml @ 250 mls/hr Q12 IVPB Last administered on 08/19/18 09:12; Admin Dose 250 MLS/HR; Start 08/12/18 at 16:00 Mupirocin (Bactroban) 1 applic BID TOP Last administered on 08/19/18 09:13; Admin Dose 1 APPLIC; Start 08/12/18 at 21:00 Gabapentin (Neurontin) 600 mg TID PO Last administered on 08/19/18 13:10; Admin Dose 600 MG; Start 08/15/18 at 13:00 Gentamicin Sulfate (Gentamicin Iv Per Pharmacy) GENTAMICIN PER PHARMACY NOTE XX ; Start 08/15/18 at 12:00 Colistimethate Sodium (Colistin Inhal) 75 mg BID RESP THERAPY NEB Last administered on 08/19/18 08:33; Admin Dose 75 MG; Start 08/15/18 at 20:00 Labetalol HCl (Labetalol) 10 mg Q4H PRN IV sbp >160 Last administered on 08/15/18at 12:48; Admin Dose 10 MG; Start 08/15/18 at 12:30 Hydralazine HCl (Apresoline) 10 mg Q4H PRN IV sbp >160; Start 08/15/18 at 16:00 Clonidine (Catapres) 0.1 mg Q6H PRN PO sbp >160 Last administered on 08/16/18 15:46; Admin Dose 0.1 MG; Start 08/15/18 at 16:00 Enalaprilat (Vasotec Iv) 0.625 mg Q6H PRN IV sbp >160; Start 08/15/18 at 16:00 Amlodipine Besylate (Norvasc) 10 mg DAILY PO Last administered on 08/19/18 09:13; Admin Dose 10 MG; Start 08/16/18 at 09:00 Lisinopril (Zestril) 20 mg DAILY PO Last administered on 08/19/18 09:12; Admin Dose 20 MG; Start 08/16/18 at 09:00 Gentamicin Sulfate 360 mg/ Dextrose 109 ml @ 103.75 mls/ hr Q36H IVPB Last administered on 08/18/18 03:17; Admin Dose 103.75 MLS/HR; Start 08/18/18 at 03:00 Alteplase, Recombinant (Cathflo (Activase)) 2 mg MAY REPEAT X1 PRN CATHETER IF CATHETER REMAINS OCCULUDED Last administered on 08/17/18 05:56; Admin Dose 2 MG; Start 08/17/18 at 05:30 Docusate Sodium (Colace) 100 mg BID PO Last administered on 08/19/18 09:12; Admin Dose 100 MG; Start 08/17/18 at 21:00 Acetaminophen/ Hydrocodone Bitart ([place] (5/325)) 1 tab Q4H PRN PO MODERATE PAIN LEVEL 4-6 Last administered on 08/19/18 11:37; Admin Dose 1 TAB; Start 08/18/18 at 14:30 Albuterol/ Ipratropium (Duoneb) 3 ml Q6H RESP THERAPY HHN Last administered on 08/19/18 14:05; Admin Dose 3 ML; Start 08/19/18 at 08:00 PATEL DUTTA NP Aug 19, 2018 15:27
[2018-08-19] MEDS: GENTAMICIN 360 MG in DEXTROSE 5% 100 ML IVPB SCH (15:33)
[2018-08-19] MEDS ORDERED: FER325 PO (15:33)
--- NOTE | 2018-08-19 15:35 | DS ---
Date/Time of Note Date/Time of Note DATE: 08/19/18 TIME: 15:27 Discharge Summary Admission/Discharge Info Admit Date/Time Aug 10, 2018 at 17:36 Discharge Date/Time 08/19/18 Discharge Diagnosis 1. Acute hypoxic respiratory failure- resolved 2. Acute encephalopathy, resolved 3. Septic shock, resolved 4. Right-sided pneumonia 5. Acute kidney injury- resolved 6. History of cystic lung disease, with chronic bloody cough 7. History of COPD 8. Anemia Patient Condition: Stable Consults Infectious disease- Dr Armstrong Pulmonology- Dr. Glynn Nephrology- Dr. Salinas Hx of Present Illness 67 yo M with unknown PMH with trach to room air presented via EMS to ED complaining of respiratory distress. History obtained from ED physician given patient is lethargic and minimally responsive. Per ED physician, patients cannula was dislodged and he went to his neighbor to ask for help. EMS was called and patient was found to be saturating 50%. His trach was changed and placed on mechanical ventilation. Imaging studies were obtained and found to right sided pneumonia. He was also noted with low BP and started on pressor support. Patient did nod yes when asked if he had pain and pointed at trach site. Did not answer any further questions. Hospital Course Patient was admitted to ICU for vent support and pressor support as well. Pulmonology was consulted for vent support given patient baseline was on aerosol mask. Patient was found with pneumonia which was most likely from aspiration and dislodged trach. Patient was found with JOCELIN as well and Nephrology was consulted for further recommendations. Patient was placed on bronchodilators and antibiotics. ID was consulted for antibiotic management. During course of hospitalization, patients respiratory status improved and he was weaned off ventilator. Mentation returned to baseline and renal function normalized. Patient was transfused PRBC and given IV iron due to anemia. Patients presenting symptoms improved significantly and was cleared for discharge from Pulm standpoint. ID recommending completing 7 day course of IV Gentamicin and was discharged home in good condition. Home Meds Active Scripts Levofloxacin* (Levofloxacin*) 750 Mg Tablet, 750 MG PO DAILY, #10 TAB Prov:ANA CARRANZA MD 07/21/18 Reported Medications Pantoprazole* (Pantoprazole*) 40 Mg Tablet., 40 MG GTB AC BREAKFAST, TAB 07/17/18 Clonidine Hcl* (Clonidine Hcl*) 0.1 Mg Tab, 0.1 MG GTB NEEDED, TAB 07/17/18 Hydralazine Hcl* (Hydralazine Hcl*) 25 Mg Tab, 25 MG GTB Q8 PRN for NEEDED, #90 TAB 07/17/18 Gabapentin* (Gabapentin*) 800 Mg Tablet, 800 MG GTB TID, #90 TAB 07/17/18 Alprazolam* (Xanax*) 2 Mg Tablet, 2 MG GTB Q8H PRN for ANXIETY, TAB 07/17/18 Hydrocodone/Acetaminophen ([place] 10-325 Tablet) 1 Each Tablet, 1 EACH GTB Q6H PRN for NEEDED, TAB 07/17/18 Follow-up Plan 1. Follow up with your primary care physician in 1-2 weeks 2. Continue IV antibiotics until 08/21 3. Take all medications as prescribed for blood pressure control. Only take Clonidine or hydralazine if your blood pressure is running greater than 160 4. If experiencing any concerning symptoms, please go to your nearest emergency department Primary Care Provider Time spent on discharge: > 30 minutes Pending Labs Laboratory Tests Test 08/19/18 05:23 08/19/18 14:08 Blood Urea Nitrogen 14 mg/dl (7-20) Creatinine 0.92 mg/dl (0.61-1.24) Gentamicin Level Trough 0.7 ug/ml (1.0-2.0) FRANKO SAUCEDA MD Aug 19, 2018 15:35
[2018-08-20] MEDS ORDERED: PANTOPRAZOLE (EC) 40 MG TAB PO SCH (06:00)
== END 2018-08-19 21:08 | disposition home health service (06) | DRG 871 ==
LOC: E/R 15:32 → ICU 17:36 → MERGE 17:36 → 6WM 08-14 03:27
PROVIDERS: ADMIT Internal Medicine; ATTEND Internal Medicine
PROC: 5A1945Z Respiratory Ventilation, 24-96 Consecutive Hours (ICD-10-PCS; principal; 2018-08-10)
PROC: 0B21XFZ Change Tracheostomy Device in Trachea, External Approach (ICD-10-PCS; 2018-08-10)
PROC: 30233N1 Transfusion of Nonautologous Red Blood Cells into Peripheral Vein, Percutaneous Approach (ICD-10-PCS; 2018-08-12)
DX: A41.9 Sepsis, unspecified organism (principal); R65.21 Severe sepsis with septic shock; J69.0 Pneumonitis due to inhalation of food and vomit; J96.21 Acute and chronic respiratory failure with hypoxia; G92 Toxic encephalopathy; E87.0 Hyperosmolality and hypernatremia; N17.9 Acute kidney failure, unspecified; T85.628A Displacement of other specified internal prosthetic devices, implants and grafts, initial encounter; J98.4 Other disorders of lung; E83.42 Hypomagnesemia; I10 Essential (primary) hypertension; J43.9 Emphysema, unspecified; D64.9 Anemia, unspecified; Z22.322 Carrier or suspected carrier of Methicillin resistant Staphylococcus aureus; Y83.8 Other surgical procedures as the cause of abnormal reaction of the patient, or of later complication, without mention of misadventure at the time of the procedure; Z46.89 Encounter for fitting and adjustment of other specified devices
CPT/HCPCS: 36430; 36600; 71045; 74230; 76775; 76937; 80048; 80053; 80170; 81001; 81003; 82043; 82565; 82728; 82803; 83540; 83605; 83735; 84100; 84155; 84300; 84484; 84520; 85025; 85045; 85610; 85730; 86850; 86900; 86901; 86920; 87070; 87081; 87086; 89220; 92526; 92610; 92611; 93005; 94002; 94003; 94640; 96374; 97110; 97116; 97163; 97165; 97530; 97535; C9113; J0692; J1580; J1644; J1956; J2060; J2270; J2543; J2916; J3370; J3475; J7030; J7042; J7050; J7070; P9016

== ENCOUNTER 2018-09-11 06:00 | Inpatient (IN) | payer MEDICARE, OTHER ==
[~2018-09-11] VITALS: Ht 170.2 cm; Wt 72.7 kg
[2018-09-11] VITALS (12 sets, daily range): BP systolic 111–149; BP diastolic 70–77; PULSE 73–94; RESP 16–31; Ht 170.2 cm; Wt 72.7 kg
[~2018-09-11 06:00] MED LIST changes: +AMLO-147 PO; +FER325 PO; +GABA-526 PO; -GABA-528 GTB; +HYDR-3601 PO; +IPRA3AMP29 HHN; -LEVO750T8 PO; +LISI-471 PO
[2018-09-11] MEDS ORDERED: ALBUTEROL 0.083% (NEB) 2.5 MG/3 ML AMP HHN STA (06:15)
--- NOTE | 2018-09-11 06:25 | ERD ---
ER Documentation Chief Complaint Chief Complaint BIB RA 79 FROM HOME W/ C/O LOW O2 SAT, SOB, BLEEDING TRACH SITE HPI This is 67-year-old male who is trach to air who is brought in for shortness of breath. The patient has chronic bleeding from his trach. The called paramedics is she said that he had increased respiratory rate and has had a cough for several days but no fever. Paramedics report O2 sat of 82 on arrival. He was put on oxygen his saturations increased. He is admitted here last month for right lobe pneumonia presumed to be aspiration pneumonia ROS All systems reviewed and are negative except as per history of present illness. Medications Home Meds Active Scripts Ferrous Sulfate* (Ferrous Sulfate*) 325 Mg Tabec, 325 MG PO DAILY for 30 Days, #30 TAB Prov:FRANKO SAUCEDA MD 08/19/18 Hydrocodone Bit-Acetaminophen (Hydrocodone Bit-APAP) 5-325MG Tablet, 1 TAB PO Q4H PRN for MODERATE PAIN LEVEL 4-6 for 7 Days, #20 TAB Prov:FRANKO SAUCEDA MD 08/19/18 Lisinopril* (Lisinopril*) 20 Mg Tablet, 20 MG PO DAILY for 30 Days, #30 TAB Prov:FRANKO SAUCEDA MD 08/19/18 Amlodipine Besylate* (Amlodipine Besylate*) 10 Mg Tablet, 10 MG PO DAILY for 30 Days, #30 TAB Prov:FRANKO SAUCEDA MD 08/19/18 Ipratropium-Albuterol (Ipratropium-Albuterol) 0.5-3 Mg/3 Ml Ampul.neb, 3 ML HHN Q6H RESP THERAPY for 30 Days, #120 DOSE Prov:FRANKO SAUCEDA MD 08/19/18 Gabapentin* (Gabapentin*) 600 Mg Tablet, 600 MG PO TID for 30 Days, #90 TAB Prov:FRANKO SAUCEDA MD 08/19/18 Reported Medications Pantoprazole* (Pantoprazole*) 40 Mg Tablet.dr, 40 MG GTB AC BREAKFAST, TAB 07/17/18 Clonidine Hcl* (Clonidine Hcl*) 0.1 Mg Tab, 0.1 MG GTB NEEDED, TAB 07/17/18 Hydralazine Hcl* (Hydralazine Hcl*) 25 Mg Tab, 25 MG GTB Q8 PRN for NEEDED, #90 TAB 07/17/18 Alprazolam* (Xanax*) 2 Mg Tablet, 2 MG GTB Q8H PRN for ANXIETY, TAB 07/17/18 Hydrocodone/Acetaminophen ([place] 10-325 Tablet) 1 Each Tablet, 1 EACH GTB Q6H PRN for NEEDED, TAB 07/17/18 Allergies Allergies: Coded Allergies: No Known Drug Allergies (Verified Allergy, Unknown, 07/17/18) PMhx/Soc History of Surgery: Yes (TRACH ) Anesthesia Reaction: No Hx Neurological Disorder: No Hx Respiratory Disorders: Yes (COPD, RESPIRATORY FAILURE ) Hx Cardiac Disorders: Yes (HTN ) Hx Psychiatric Problems: No Hx Miscellaneous Medical Probl: Yes (ANEMIA) Hx Alcohol Use: Yes Hx Substance Use: Yes Hx Tobacco Use: No Smoking Status: Former smoker FmHx Family History: No coronary disease Physical Exam Vitals Vital Signs Date Temp Pulse Resp B/P (MAP) Pulse Ox O2 O2 Flow FiO2 Time Delivery Rate 09/11/18 Simple 40 06:30 Mask 09/11/18 87 30 114/92 100 High Flow 06:30 (99) 09/11/18 100 10.0 40 06:25 09/11/18 97.3 97 24 118/71 100 06:03 (87) Physical Exam Const: Well-developed, well-nourished Head: Atraumatic, normocephalic Eyes: Normal Conjunctiva, PERRLA, EOMI, normal sclera, no nystagmus ENT: Normal External Ears, Nose and Mouth, moist mucus membranes. Neck: Full range of motion. No meningismus, no lymphadenopathy tracheostomy in place with some slight blood around the skin around it but no active bleeding. Resp: Bilateral coarse breath sounds] Cardio: Regular rate and rhythm, no murmurs, S1 S2 present Abd: Soft, non tender x 4, non distended. Normal bowel sounds, no guarding or rebound, no pulsitile abdominal masses or bruits Skin: No petechiae or rashes, no ecchymosis , no maculopapular rash Back: No midline or flank tenderness Ext: No cyanosis, or edema, FROM x 4, normal inspection, neurovascularly intact x 4 Neur: Awake and alert, STR 5/5 x 4, sensation intact x 4, no focal findings, cerebellum intact Psych: Normal Mood and Affect Result Diagram: 09/11/18 0610 09/11/18 0610 Results 24 hrs Laboratory Tests Test 09/11/18 06:10 White Blood Count 5.9 10^3/ul Red Blood Count 3.90 10^6/ul Hemoglobin 9.3 g/dl Hematocrit 31.8 % Mean Corpuscular Volume 81.5 fl Mean Corpuscular Hemoglobin 23.8 pg Mean Corpuscular Hemoglobin Concent 29.2 g/dl Red Cell Distribution Width 21.1 % Platelet Count 284 10^3/UL Mean Platelet Volume 10.0 fl Immature Granulocytes % 0.300 % Neutrophils % 67.7 % Lymphocytes % 17.1 % Monocytes % 10.5 % Eosinophils % 3.7 % Basophils % 0.7 % Nucleated Red Blood Cells % 0.0 /100WBC Immature Granulocytes # 0.020 10^3/ul Neutrophils # 4.0 10^3/ul Lymphocytes # 1.0 10^3/ul Monocytes # 0.6 10^3/ul Eosinophils # 0.2 10^3/ul Basophils # 0.0 10^3/ul Nucleated Red Blood Cells # 0.0 10^3/ul Sodium Level 145 mmol/L Potassium Level 4.8 mmol/L Chloride Level 108 mmol/L Carbon Dioxide Level 31 mmol/L Anion Gap 6 Blood Urea Nitrogen 22 mg/dl Creatinine 1.00 mg/dl Est Glomerular Filtrat Rate mL/min > 60 mL/min Glucose Level 89 mg/dl Calcium Level 9.3 mg/dl Total Bilirubin 0.3 mg/dl Direct Bilirubin 0.00 mg/dl Indirect Bilirubin 0.3 mg/dl Aspartate Amino Transf (AST/SGOT) 31 IU/L Alanine Aminotransferase (ALT/SGPT) 8 IU/L Alkaline Phosphatase 88 IU/L Troponin I < 0.012 ng/ml B-Type Natriuretic Peptide 109 PG/ML Total Protein 8.5 g/dl Albumin 3.9 g/dl Globulin 4.60 g/dl Albumin/Globulin Ratio 0.84 Current Medications Medications Dose Sig/Jacquelyn Start Time Status Last (Trade) Ordered Route PRN Stop Time Admin Dose Reason Admin Albuterol 5 mg ONCE STAT 09/11/18 DC (Proventil HHN 06:15 0.083% (Neb)) 09/11/18 06:18 Piperacillin 100 ml @ ONCE ONCE 09/11/18 DC 09/11/18 Sod/ 200 mls/hr IVPB 06:30 06:39 Tazobactam 09/11/18 06:59 Sod Clindamycin 50 ml @ ONCE ONCE 09/11/18 DC 09/11/18 HCl/ 100 mls/hr IVPB 06:30 07:09 Dextrose 09/11/18 06:59 Procedures/MDM [id number] [address] Radiology Main Line: [phone] DIAGNOSTIC IMAGING REPORT Patient: FAHAD CANALES : 1950 Age: 67 Sex: M MR #: [id number] DOS: 09/11/1815 Ordering MD: GILBERTO KANG DO Location: E/R Room/Bed: PROCEDURE: XR Chest. CLINICAL INDICATION: Shortness of breath TECHNIQUE: AP portable chest was obtained COMPARISON: Chest 03/05/2018 FINDINGS: Unremarkable tracheostomy. Hypoventilatory chest. Patient to the left. Heart mildly enlarged. Mild bilateral perihilar and infrahilar patchy densities may be due to a combination of atelectasis in technique however pulmonary edema/inflamm atory infiltrates should be considered. Remainder lungs are clear. No gross pleural effusions and pneumothorax. Bilateral old rib fractures more prevalent on the right. Bones osteopenic. IMPRESSION: 1. Hypoventilatory chest. 2. Mild cardiomegaly. 3. Mild bilateral perihilar and infrahilar patchy densities may all relate to technique and atelectasis. Pulmonary edema and inflammatory infiltrates should be considered. RPTAT:AAJJ Physician Kacy Date Time Electronically viewed and signed by Physician Kacy on 09/11/2018 06:44 BM/ CC: GILBERTO KANG DO [id number] Patient has bilateral patchy infiltrates. He is been treated with Zosyn and cl indamycin. We will admit to the hospital for bilateral lower lobe patchy infiltrates Departure Diagnosis: Primary Impression: Pneumonia Pneumonia type: due to unspecified organism Laterality: bilateral Lung location: lower lobe of lung Qualified Codes: J18.1 - Lobar pneumonia, unspecified organism Condition: Stable GILBERTO KANG DO September 11, 2018 06:25
[2018-09-11] MEDS ORDERED: PIPER-TAZO 3.375 GM IV (PMX) 100 ML IVPB ONE (06:30)
[2018-09-11] MEDS ORDERED: CLINDAMYCIN 900 MG/D5W (PMX) 50 ML IVPB ONE (06:30)
[2018-09-11] MEDS ORDERED: GABA-528 GTB (07:55)
[2018-09-11] MEDS ORDERED: CEPH500C GTB (07:55)
[2018-09-11] MEDS ORDERED: ONDANSETRON 4 MG INJ IV PRN (08:00)
[2018-09-11] MEDS ORDERED: ACETAMINOPHEN 325 MG TAB PO PRN (08:00)
[2018-09-11] MEDS ORDERED: SOD CHLORIDE 0.9% 1,000 ML IV STA (09:21)
[2018-09-11] MEDS ORDERED: VANCOMYCIN IV PER PHARMACY XX SCH (10:00)
[2018-09-11] MEDS ORDERED: ALBUTEROL/IPRATROPIUM (NEB) 3 ML AMP HHN PRN (10:00)
--- NOTE | 2018-09-11 10:00 | HP ---
Date/Time of Note Date/Time of Note DATE: 09/11/18 TIME: 10:00 Assessment/Plan VTE Prophylaxis Pharmacological prophylaxis: LMWH Lines/Catheters IV [facility]from [facility] Saline Lock Assessment/Plan Hospital Course SUBJECTIVE: pt with trach to vent. No acute distress. OBJECTIVE: Vital signs-see below PHYSICAL EXAM: Constitutional: Tonically ill looking male with trach to vent. HEENT: Head atraumatic and normocephalic. Eyes: Extraocular muscles intact. Anicteric sclerae. Pupils equal bilaterally, reactive to light. NECK: Supple without lymph node. CHEST:+Mild wheezing RUL. Diminished bibasilar HEART: S1, S2. Regular rate and rhythm. ABDOMEN: Soft/non tender with no rebound tenderness. Bowel sounds were present. EXTREMITIES: No cyanosis, clubbing or edema. NEUROLOGIC: Alert and oriented x3. No focal deficit. No sensory deficit. PSYCHOSOCIAL: No signs of depression. INTEGUMENTARY: No open wounds. ASSESSMENT AND PLAN:67 yo M w/cystic lung dx,chronic resp fx w/Trach,recent HAP/Sepsis here from SNF for SOB/Cough Acute on chronic respiratory failure -Vent management per pulmonary. [id number] bronchodilators, IV steroids in light of wheezing. -Pulmonary toileting -Aspiration precaution Healthcare acquired pneumonia -Zosyn/vancomycin -breathing treatments Dehydration -Keep n.p.o. until evaluated by speech therapy. Gentle hydration History of cystic lung disease, with chronic bloody cough -Stable -continue neb treatments -Pulm on board History of COPD - Manage as per pulmonology Anemia -Add iron panel. Stable H&H. VT prophylaxis: Lovenox PUD prophylaxis: Pepcid Rest of the management depend on hospital course. Approximately 60-minute was spent on this history and physical. Patient was seen in collaboration with Dr. Thomas. Result Diagram: 09/11/18 0610 09/11/18 0610 Results 24hrs Laboratory Tests Test 09/11/18 06:10 09/11/18 07:52 White Blood Count 5.9 Red Blood Count 3.90 L Hemoglobin 9.3 L Hematocrit 31.8 L Mean Corpuscular Volume 81.5 L Mean Corpuscular Hemoglobin 23.8 L Mean Corpuscular Hemoglobin Concent 29.2 L Red Cell Distribution Width 21.1 H Platelet Count 284 Mean Platelet Volume 10.0 Immature Granulocytes % 0.300 Neutrophils % 67.7 Lymphocytes % 17.1 Monocytes % 10.5 Eosinophils % 3.7 Basophils % 0.7 Nucleated Red Blood Cells % 0.0 Immature Granulocytes # 0.020 Neutrophils # 4.0 Lymphocytes # 1.0 Monocytes # 0.6 Eosinophils # 0.2 Basophils # 0.0 Nucleated Red Blood Cells # 0.0 Sodium Level 145 H Potassium Level 4.8 Chloride Level 108 Carbon Dioxide Level 31 Anion Gap 6 Blood Urea Nitrogen 22 H Creatinine 1.00 Est Glomerular Filtrat Rate mL/min > 60 Glucose Level 89 Calcium Level 9.3 Total Bilirubin 0.3 Direct Bilirubin 0.00 Indirect Bilirubin 0.3 Aspartate Amino Transf (AST/SGOT) 31 Alanine Aminotransferase (ALT/SGPT) 8 L Alkaline Phosphatase 88 Troponin I < 0.012 B-Type Natriuretic Peptide 109 Total Protein 8.5 H Albumin 3.9 Globulin 4.60 H Albumin/Globulin Ratio 0.84 Blood Gas Specimen Source Blood arterial Arterial Blood Date Drawn 09/11/2018 7:53:28 AM Arterial Blood pH (Temp corrected) 7.318 L Arterial Blood pCO2 (Temp correct) 57.6 H Arterial Blood pO2 (Temp corrected) 97.3 Arterial Blood HCO3 28.9 H Arterial Blood Base Excess 2.0 Arterial Blood Oxygen Saturation 96.8 Ravindra Test ACCEPTAB Arterial Blood Gas Puncture Site Right Radial Arterial Blood Carboxyhemoglobin 0.3 Arterial Blood Methemoglobin 0.3 Blood Gas A-a O2 Differential 121.7 H Oxyhemoglobin Percent 96.2 Blood Gas Temperature 37.0 Blood Gas Actual Respiration Rate 16 Blood Gas Modality TRACH COLLAR FiO2 40.0 Blood Gas Notified Whom Manuel Blood Gas Notified Time 09/11/2018 8:05:22 AM HPI/ROS Admit Date/Time Admit Date/Time Hx of Present Illness This is a 67-year-old male with a history of cystic/emphysematous lung disease, chronic tracheostomy, chronic respiratory failure, transferred from custodial for worsening shortness of breath. Apparently, patient was discharged from [facility] in July 2018 and was treated for healthcare associated pneumonia, acute respiratory failure associated with pneumonia and cystic lung disease. Patient also was noted with septic shock with that admission. He was treated with antimicrobials and was discharged back to custodial in stable condition. According to medical records, it is noted that patient's called paramedics as patient was found and shortness of breath with increased respiratory rate and cough for several days. At my encounter with the patient, he is awake. Denies chest pain, palpitation, nausea, vomiting, abdominal pain, loss of consciousness, dizziness, headache, fever, chills, diarrhea or other constitutional symptoms. Labs showed hemoglobin 9.3, hematocrit 31.8, sodium 145. Chest x-ray showed bilateral perihilar/infrahilar patchy densities. Patient was given clindamycin, Zosyn in the emergency room and was admitted for pneumonia work-up. ROS 12 point review of system was assessed and is negative other than what is mentioned in the HPI PMH/Family/Social Past Medical History See HPI Medications Current Medications Ondansetron HCl (Zofran Inj) 4 mg ER BRIDGE PRN IV NAUSEA/VOMITING; Start 09/11/18 at 08:00; Stop 09/12/18 at 07:59 Acetaminophen (Tylenol Tab) 650 mg ER BRIDGE PRN PO .MILD PAIN 1-3 OR TEMP; Start 09/11/18 at 08:00; Stop 09/12/18 at 07:59 Sodium Chloride 1,000 ml @ 1,000 mls/hr Q1H STAT IV ; Start 09/11/18 at 09:21; Stop 09/11/18 at 10:20 Coded Allergies: No Known Drug Allergies (Verified Allergy, Unknown, 07/17/18) Past Surgical History See HPI Past Surgical Hx: other Family History Significant Family History: other Social History Former smoker Smoking Status: Former smoker Exam/Review of Systems Vital Signs Vitals Vital Signs Date Temp Pulse Resp B/P (MAP) Pulse Ox O2 O2 Flow FiO2 Time Delivery Rate 09/11/18 77 16 100 40 09:19 09/11/18 98.2 106/72 Mask 08:00 (83) 09/11/18 10.0 07:26 MALICK CABA NP September 11, 2018 10:00
[2018-09-11] MEDS: PIPER-TAZO 3.375 GM IV (PMX) 100 ML IVPB SCH ×2 (11:54→17:44)
[2018-09-11] MEDS ORDERED: VANCOMYCIN HCL 1.5 GM in SOD CHLORIDE 0.9% 250 ML IVPB SCH (12:30)
[2018-09-11] MEDS: ALBUTEROL/IPRATROPIUM (NEB) 3 ML AMP HHN SCH ×3 (13:20→21:05)
[2018-09-11] MEDS ORDERED: ACETAMINOPHEN 650 MG SUPP PR PRN (14:30)
[2018-09-11] MEDS ORDERED: SOD CHLORIDE 0.9% 1,000 ML IV SCH (14:30)
[2018-09-11] MEDS ORDERED: NACL 0.9% 3 ML SYG IV SCH (14:30)
[2018-09-11] MEDS: METHYLPREDNISOLONE 40 MG INJ IV SCH ×2 (14:49→21:22)
[2018-09-11] MEDS: SOD CHLORIDE 0.45% 1,000 ML IV SCH (14:57)
[2018-09-12] VITALS (22 sets, daily range): BP systolic 98–137; BP diastolic 58–80; PULSE 86–110; RESP 16–27
[2018-09-12] MEDS: PIPER-TAZO 3.375 GM IV (PMX) 100 ML IVPB SCH ×5 (01:24→23:11)
[2018-09-12] MEDS: ALBUTEROL/IPRATROPIUM (NEB) 3 ML AMP HHN SCH (01:34)
[2018-09-12] MEDS ORDERED: KETOROLAC 30 MG INJ IV ONE ×2 (02:44→04:51)
[2018-09-12] MEDS: ALBUTEROL HFA 8 GM INHALER INH SCH ×5 (05:34→20:15)
[2018-09-12] MEDS: IPRATROPIUM (HFA) 12.9 GM INHALER INH SCH ×5 (05:34→20:15)
[2018-09-12] MEDS: METHYLPREDNISOLONE 40 MG INJ IV SCH ×3 (06:00→23:09)
[2018-09-12] MEDS: LISINOPRIL 20 MG TAB PO SCH (09:00)
[2018-09-12] MEDS: AMLODIPINE 10 MG TAB PO SCH (09:00)
[2018-09-12] MEDS: ENOXAPARIN 40 MG/0.4 ML SYG SC SCH (10:08)
[2018-09-12] MEDS: SOD CHLORIDE 0.45% 1,000 ML IV SCH (10:30)
[2018-09-12] MEDS: VANCOMYCIN HCL 1.25 GM in SOD CHLORIDE 0.9% 250 ML IVPB SCH (13:22)
[2018-09-12] MEDS: ASCORBIC ACID 250 MG TAB PO SCH (15:00)
[2018-09-12] MEDS: ZINC SULFATE 220 MG CAP PO SCH (15:00)
[2018-09-12] MEDS: MULTIVITAMINS/MINERALS TAB PO SCH (15:00)
--- NOTE | 2018-09-12 15:24 | CONS ---
DATE OF ADMISSION: 09/11/2018 DATE OF CONSULTATION: TYPE OF CONSULTATION: Pulmonary. REASON FOR CONSULTATION: Shortness of breath. Thank you, Dr. Mike, for this consultation. HISTORY OF PRESENT ILLNESS: This is a 67-year-old gentleman with multiple admissions to [facility], presented again with increasing shortness of breath, orthopnea, PND. He has a hist ory of bullous lung disease with recurrent hemoptysis, tracheostomy in place and noncompliance with t reatment. Currently, he denies any shortness of breath, but remains on mechanical ventilation with n o respiratory distress. PAST MEDICAL HISTORY: Significant emphysema with bullous lung disease, cavitating right upper lobe l esion with recurrent hemoptysis having declined embolization in the past. MEDICATIONS: Per chart. ALLERGIES: NONE. SOCIAL HISTORY: Ex-smoker, no alcohol, no history of drug use. FAMILY HISTORY: Noncontributory. SYSTEMS REVIEW: A 12-point review of systems was negative other than mentioned above. PHYSICAL EXAMINATION: GENERAL: Elderly gentleman, appears comfortable at rest, awake, alert, oriented. VITAL SIGNS: Temperature 98, pulse , O2 saturation 96%, FiO2 of 30%. NECK: Trach site is clean and intact. CARDIAC: S1, S2. No added sounds or murmurs. CHEST: Diminished air entry bilaterally. ABDOMEN: Soft, nontender. No guarding or rebound. EXTREMITIES: No cyanosis, clubbing, edema. NEUROLOGIC: Generalized weakness, but no focal deficits. LABORATORY DATA: White count 8.1, hemoglobin 9.3, platelets 277. Chemistry within normal limits. A BG: PaO2 was 97 with a pH of 7.31. DIAGNOSTIC DATA: Chest x-ray was reviewed, which showed pulmonary edema, possible infiltrates and hy poventilation. IMPRESSION: 1. Transient dyspnea in a patient with significant chronic lung disease. 2. Chronic respiratory failure. 3. Intermittent hemoptysis. PLAN: 1. Discontinue mechanical ventilation. 2. Advance diet as tolerated. 3. Consider discharge planning soon back to home where he was being cared for by his relatives. Dictated By: VAUGHN NICHOLS MD SV/NTS Conf#: [id number] DID#: [id number] CC: RODGER MOONEY MD;*EndCC*
[2018-09-12] MEDS: BALSAM PERU/CASTOR OIL 60 GM TUBE TOP SCH ×2 (16:05→23:09)
--- NOTE | 2018-09-12 16:48 | PN ---
Date/Time of Note Date/Time of Note DATE: 09/12/18 TIME: 16:43 Assessment/Plan VTE Prophylaxis Risk score (from [facility])>0 risk: 6 SCD applied (from [facility]): Yes Pharmacological prophylaxis: LMWH Lines/Catheters IV Catheter Type (from [facility]): Mid Line Urinary Cath still in place: No Assessment/Plan Hospital Course Assessment and plan 1. Healthcare acquired pneumonia. - Continue with antibiotics. - ID consult is following. - Follow-up on final cultures. 2. Gram-positive cocci in pairs and blood culture. - Follow-up on final cultures. - Continue diabetic regimen. - Antipyretics as needed for fever. 3. Acute on chronic respiratory failure. - Freezer Operator following. - Continue pulmonary hygiene. - Breathing appears to be improved at present. - Breathing treatments as needed. 4. History of COPD. -Follow-up with pulmonary recommendations. 5. Dysphagia. - Follow-up with speech therapist recommendations for diet. Discussed plan of care with Dr. Walls Result Diagram: 09/12/18 0635 09/12/18 0635 Results 24hrs Laboratory Tests Test 09/12/18 06:35 White Blood Count 8.1 # Red Blood Count 3.97 L Hemoglobin 9.3 L Hematocrit 31.4 L Mean Corpuscular Volume 79.1 L Mean Corpuscular Hemoglobin 23.4 L Mean Corpuscular Hemoglobin Concent 29.6 L Red Cell Distribution Width 21.2 H Platelet Count 277 Mean Platelet Volume 9.8 Immature Granulocytes % 0.600 H Neutrophils % 92.0 H Lymphocytes % 6.9 L Monocytes % 0.4 Eosinophils % 0.0 Basophils % 0.1 Nucleated Red Blood Cells % 0.0 Immature Granulocytes # 0.050 H Neutrophils # 7.4 Lymphocytes # 0.6 L Monocytes # 0.0 L Eosinophils # 0.0 Basophils # 0.0 Nucleated Red Blood Cells # 0.0 Sodium Level 142 Potassium Level 3.9 Chloride Level 109 Carbon Dioxide Level 24 Anion Gap 9 Blood Urea Nitrogen 21 H Creatinine 1.03 Est Glomerular Filtrat Rate mL/min > 60 Glucose Level 206 # Hemoglobin A1c 5.7 Calcium Level 8.9 Phosphorus Level 4.5 Magnesium Level 1.5 L Total Bilirubin 0.3 Direct Bilirubin 0.00 Indirect Bilirubin 0.3 Aspartate Amino Transf (AST/SGOT) 16 Alanine Aminotransferase (ALT/SGPT) < 6 L Alkaline Phosphatase 62 Total Protein 7.3 # Albumin 3.5 Globulin 3.80 H Albumin/Globulin Ratio 0.92 Triglycerides Level 68 Cholesterol Level 153 LDL Cholesterol, Calculated 98 HDL Cholesterol 41 Cholesterol/HDL Ratio 3.7 Subjective 24 Hr Interval Summary Free Text/Dictation no s/s of distress. reports better breathing at this time Exam/Review of Systems Exam Vitals Vital Signs Date Temp Pulse Resp B/P (MAP) Pulse Ox O2 O2 Flow FiO2 Time Delivery Rate 09/12/18 98.7 86 16 113/71 98 Mechanical 15:47 (85) Ventilator Trach Collar 09/12/18 30 13:50 09/11/18 10.0 07:26 Intake and Output 09/11/18 09/11/18 09/12/18 1515:00 23:00 07:00 IntakeIntake Total 150 ml OutputOutput Total 500 ml 400 ml BalanceBalance 150 ml -500 ml -400 ml Constitutional: alert, oriented Psych: nl mood/affect Head: normocephalic Neck: supple, non-tender Respiratory: other (no obvious wheezing/rhonchi. on trach to vent) Gastrointestinal: soft, non-tender Neurological: HOOKER UP II-XII intact, nl mental status, nl speech Results Results 24hrs Laboratory Tests Test 09/12/18 06:35 White Blood Count 8.1 # Red Blood Count 3.97 L Hemoglobin 9.3 L Hematocrit 31.4 L Mean Corpuscular Volume 79.1 L Mean Corpuscular Hemoglobin 23.4 L Mean Corpuscular Hemoglobin Concent 29.6 L Red Cell Distribution Width 21.2 H Platelet Count 277 Mean Platelet Volume 9.8 Immature Granulocytes % 0.600 H Neutrophils % 92.0 H Lymphocytes % 6.9 L Monocytes % 0.4 Eosinophils % 0.0 Basophils % 0.1 Nucleated Red Blood Cells % 0.0 Immature Granulocytes # 0.050 H Neutrophils # 7.4 Lymphocytes # 0.6 L Monocytes # 0.0 L Eosinophils # 0.0 Basophils # 0.0 Nucleated Red Blood Cells # 0.0 Sodium Level 142 Potassium Level 3.9 Chloride Level 109 Carbon Dioxide Level 24 Anion Gap 9 Blood Urea Nitrogen 21 H Creatinine 1.03 Est Glomerular Filtrat Rate mL/min > 60 Glucose Level 206 # Hemoglobin A1c 5.7 Calcium Level 8.9 Phosphorus Level 4.5 Magnesium Level 1.5 L Total Bilirubin 0.3 Direct Bilirubin 0.00 Indirect Bilirubin 0.3 Aspartate Amino Transf (AST/SGOT) 16 Alanine Aminotransferase (ALT/SGPT) < 6 L Alkaline Phosphatase 62 Total Protein 7.3 # Albumin 3.5 Globulin 3.80 H Albumin/Globulin Ratio 0.92 Triglycerides Level 68 Cholesterol Level 153 LDL Cholesterol, Calculated 98 HDL Cholesterol 41 Cholesterol/HDL Ratio 3.7 Medications Medication Current Medications Piperacillin Sod/ Tazobactam Sod 100 ml @ 200 mls/hr Q6 IVPB Last administered on 09/12/18at 12:38; Admin Dose 200 MLS/HR; Start 09/11/18 at 12:00 Vancomycin HCl (Vanco Iv Per Pharmacy) VANCOMYCIN PER PHARMACY PER PROTOCOL XX ; Start 09/11/18 at 10:00 Amlodipine Besylate (Norvasc) 10 mg DAILY PO ; Start 09/12/18 at 09:00 Lisinopril (Zestril) 20 mg DAILY PO ; Start 09/12/18 at 09:00 Vancomycin HCl 1.25 gm/Sodium Chloride 250 ml @ 83.333 mls/ hr Q24H IVPB Last administered on 09/12/18at 13:22; Admin Dose 83.333 MLS/HR; Start 09/12/18 at 12:30 Methylprednisolone Sodium Succinate (Solu-Medrol) 40 mg Q8 IV Last administered on 09/12/18at 14:46; Admin Dose 40 MG; Start 09/11/18 at 14:30 IV Flush (NS 3 ml) 3 ml PER PROTOCOL IV ; Start 09/11/18 at 14:30 Acetaminophen (Tylenol Supp) 650 mg Q6H PRN [place] .PAIN 1-3 OR TEMP; Start 09/11/18 at 14:30 Enoxaparin Sodium (Lovenox) 40 mg DAILY SC Last administered on 09/12/18at 10:08; Admin Dose 40 MG; Start 09/12/18 at 09:00 Sodium Chloride 1,000 ml @ 50 mls/hr Q20H IV Last administered on 09/11/18at 14:57; Admin Dose 50 MLS/HR; Start 09/11/18 at 14:30 Albuterol (Ventolin Hfa) 4 puff Q4H RESP THERAPY INH Last administered on 09/12/18 14:32; Admin Dose 4 PUFF; Start 09/12/18 at 05:00 Ipratropium [place] (Atrovent Hfa) 4 puff Q4H RESP THERAPY INH Last administe red on 09/12/18at 14:32; Admin Dose 4 PUFF; Start 09/12/18 at 05:00 Multivitamins/ Minerals (Theragran-M) 1 tab DAILY PO ; Start 09/12/18 at 15:00 Zinc Sulfate (Zinc Sulfate) 220 mg DAILY PO ; Start 09/12/18 at 15:00 Ascorbic Acid (Vitamin C) 250 mg DAILY PO ; Start 09/12/18 at 15:00 TAINA HALLMAN NP September 12, 2018 16:48
--- NOTE | 2018-09-12 18:52 | CONS ---
DATE OF ADMISSION: 09/11/2018 DATE OF CONSULTATION: 09/12/2018 TYPE OF CONSULTATION: Infectious disease. REQUESTING PHYSICIAN: Charlee Son NP. Thank you Charlee for this consultation. HISTORY OF PRESENT ILLNESS: This is a chronically ill 67-year-old - [place] man well known to our service from previous admissions to different facilities. The patient with a history of cystic emphysematous lung disease, chronic tracheostomy, chronic respiratory failure, history of hemoptysis, cavitating right upper lobe lesion, was having declined embolization in the past, admitted with increased shortness of breath with concern for pneumonia. The patient came with a temperature of 98.3, pulse 112, respirations 17, blood pressure 98/58, saturation 100%. WBC 5.9, H and H 9.3 and 31.8, platelets 284, no shift, no bands. Sodium 145, potassium 4.8, BUN 22, creatinine 1, normal bilirubin and LFT. Negative troponin. Cultures were sent with blood culture growing gram-positive cocci in pairs and chains out of 2 sets. The patient was started on vancomycin, Solu- Medrol and Zosyn. Chest x-ray on admission revealed hypoventilatory chest, mild cardiomegaly, mild bilateral perihilar and infrahilar patchy densities. The patient is being seen by Dr. Glynn in pulmonary consultation. SOCIAL HISTORY: The patient came from home where he lives with his daughter. PHYSICAL EXAMINATION: GENERAL: This is a chronically ill-appearing, cachectic, elderly - [place] man, who is alert, in no distress. HEENT: Head atraumatic, normocephalic. Sclerae anicteric. Buccal mucosa dry. NECK: Supple. Tracheostomy present. CHEST: Rise symmetrical. Breath sounds diminished to bases with scattered rhonchi. HEART: S1, S2. ABDOMEN: Soft, bowel sounds present. EXTREMITIES: Without cyanosis. DIAGNOSTIC IMPRESSION: This is a chronically ill-appearing elderly man with numerous medical problems, admitted with acute on chronic respiratory distress. The patient with a history of chronic right cavitary lesion, history of empyema status post video-assisted thoracotomy with decortication, bullous emphysema, now also with gram-positive cocci in pairs and chains. He is on broad-spectrum antibiotics pending final cultures. We will continue him on current regimen until we get final cultures. Repeat chest x-ray in a.m. 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 Discussed with Dr. Cai, who is covering for Dr. Delcid. Dictated By: PATEL DUTTA HUMAN SERVICES MANAGER for MIRACLE DELCID MD NI/NTS Conf#: [id number] DID#: [id number] CC: RODGER MOONEY MD;*EndCC* MTDD
[2018-09-12] MEDS: TOBRAMYCIN/0.25NS 300 MG/5 ML INHAL NEB SCH (20:11)
[2018-09-12] MEDS: ALBUTEROL/IPRATROPIUM (NEB) 3 ML AMP HHN PRN (20:51)
[2018-09-13] VITALS (25 sets, daily range): BP systolic 121–180; BP diastolic 68–83; PULSE 68–114; RESP 18–27
[2018-09-13] MEDS: ALBUTEROL HFA 8 GM INHALER INH SCH ×6 (00:59→20:35)
[2018-09-13] MEDS: IPRATROPIUM (HFA) 12.9 GM INHALER INH SCH ×6 (00:59→20:34)
[2018-09-13] MEDS: SOD CHLORIDE 0.45% 1,000 ML IV SCH (03:38)
[2018-09-13] MEDS: PIPER-TAZO 3.375 GM IV (PMX) 100 ML IVPB SCH ×3 (05:34→17:41)
[2018-09-13] MEDS: METHYLPREDNISOLONE 40 MG INJ IV SCH ×3 (05:34→21:21)
[2018-09-13] MEDS: ZINC SULFATE 220 MG CAP PO SCH (08:57)
[2018-09-13] MEDS: MULTIVITAMINS/MINERALS TAB PO SCH (08:57)
[2018-09-13] MEDS: ASCORBIC ACID 250 MG TAB PO SCH (08:57)
[2018-09-13] MEDS: BALSAM PERU/CASTOR OIL 60 GM TUBE TOP SCH ×2 (08:57→20:18)
[2018-09-13] MEDS: LISINOPRIL 20 MG TAB PO SCH (08:58)
[2018-09-13] MEDS: AMLODIPINE 10 MG TAB PO SCH (08:58)
[2018-09-13] MEDS: ENOXAPARIN 40 MG/0.4 ML SYG SC SCH (09:04)
[2018-09-13] MEDS: TOBRAMYCIN/0.25NS 300 MG/5 ML INHAL NEB SCH ×2 (09:10→20:35)
--- NOTE | 2018-09-13 10:12 | CONS ---
Assessment/Plan Assessment/Plan Assessment/Plan (Daily) Assessment and recommendations; 1. Patient with history of advanced bullous lung disease admitted for shortness of breath with interval improvement. 2. Long-standing history of intermittent hemoptysis likely from underlying bronchiectasis. 3. Currently based upon examination as well as chest x-ray there is no suggestion of any acute pneumonia. Continue current supportive care. Consider discharge of antibiotics. Consultation Date/Type/Reason Admit Date/Time September 11, 2018 at 07:55 Initial Consult Date Type of Consult Pulmonary Reason for Consultation Patient's condition is stable. Doing very well on T-piece. General exam; elderly male, awake alert, currently no distress. Date/Time of Note DATE: 09/13/18 TIME: 10:10 Exam/Review of Systems Exam Vitals Vital Signs Date Temp Pulse Resp B/P (MAP) Pulse Ox O2 O2 Flow FiO2 Time Delivery Rate 09/13/18 85 18 100 30 09:10 09/13/18 142/76 08:59 (98) 09/13/18 98.0 Room Air 07:51 09/12/18 10.0 20:11 Intake and Output 09/12/18 09/12/18 09/13/18 1515:00 23:00 07:00 IntakeIntake Total 600 ml OutputOutput Total 375 ml BalanceBalance 225 ml Exam H EENT exam; supple neck, no JVD. No lymphadenopathy. Midline trachea. No thyromegaly. Tracheostomy in place. Attached to T-piece. Patient is edentulous. Chest exam; diminished breath sounds bilaterally. No added sounds. S1-S2 audible, no murmurs. Regular rhythm. Abdomen exam; soft, nontender. No organomegaly. There is a well-healed epigastric scar. Bowel sounds audible. Extremity exam; no peripheral edema clubbing. DOG OR ANIMAL SITTER exam; no focal motor deficit. Results Result Diagram: 09/12/18 0635 09/12/18 0635 Medications Medication Current Medications Piperacillin Sod/ Tazobactam Sod 100 ml @ 200 mls/hr Q6 IVPB Last administered on 09/13/18at 05:34; Admin Dose 200 MLS/HR; Start 09/11/18 at 12:00 Vancomycin HCl (Vanco Iv Per Pharmacy) VANCOMYCIN PER PHARMACY PER PROTOCOL XX ; Start 09/11/18 at 10:00 Amlodipine Besylate (Norvasc) 10 mg DAILY PO Last administered on 09/13/18 08:58; Admin Dose 10 MG; Start 09/12/18 at 09:00 Lisinopril (Zestril) 20 mg DAILY PO Last administered on 09/13/18 08:58; Admin Dose 20 MG; Start 09/12/18 at 09:00 Vancomycin HCl 1.25 gm/Sodium Chloride 250 ml @ 83.333 mls/ hr Q24H IVPB Last administered on 09/12/18 13:22; Admin Dose 83.333 MLS/HR; Start 09/12/18 at 12:30 Methylprednisolone Sodium Succinate (Solu-Medrol) 40 mg Q8 IV Last administered on 09/13/18 05:34; Admin Dose 40 MG; Start 09/11/18 at 14:30 IV Flush (NS 3 ml) 3 ml PER PROTOCOL IV ; Start 09/11/18 at 14:30 Acetaminophen (Tylenol Supp) 650 mg Q6H PRN [place] .PAIN 1-3 OR TEMP; Start 09/11/18 at 14:30 Enoxaparin Sodium (Lovenox) 40 mg DAILY SC Last administered on 09/13/18 09:04; Admin Dose 40 MG; Start 09/12/18 at 09:00 Sodium Chloride 1,000 ml @ 50 mls/hr Q20H IV Last administered on 09/13/18 03:38; Admin Dose 50 MLS/HR; Start 09/11/18 at 14:30 Albuterol (Ventolin Hfa) 4 puff Q4H RESP THERAPY INH Last administered on 09/13/18 09:10; Admin Dose 4 PUFF; Start 09/12/18 at 05:00 Ipratropium [place] (Atrovent Hfa) 4 puff Q4H RESP THERAPY INH Last administered on 09/13/18 09:10; Admin Dose 4 PUFF; Start 09/12/18 at 05:00 Multivitamins/ Minerals (Theragran-M) 1 tab DAILY PO Last administered on 09/13/18 08:57; Admin Dose 1 TAB; Start 09/12/18 at 15:00 Zinc Sulfate (Zinc Sulfate) 220 mg DAILY PO Last administered on 09/13/18 08:57; Admin Dose 220 MG; Start 09/12/18 at 15:00 Ascorbic Acid (Vitamin C) 250 mg DAILY PO Last administered on 09/13/18at 08:57; Admin Dose 250 MG; Start 09/12/18 at 15:00 Tobramycin Sulfate/Sodium Chloride (Darnell Inhal) 300 mg BID RESP THERAPY NEB Last administered on 09/13/18at 09:10; Admin Dose 300 MG; Start 09/12/18 at 20:00 Albuterol/ Ipratropium (Duoneb) 3 ml Q4H RESP THERAPY PRN HHN SHORTNESS OF BREATH Last administered on 09/12/18at 20:51; Admin Dose 3 ML; Start 09/12/18 at 20:30 CRISTINA MORRIS September 13, 2018 10:12
--- NOTE | 2018-09-13 11:54 | PN ---
Date/Time of Note Date/Time of Note DATE: 09/13/18 TIME: 11:49 Assessment/Plan VTE Prophylaxis Risk score (from [facility])>0 risk: 4 SCD applied (from [facility]): Yes Pharmacological prophylaxis: LMWH Lines/Catheters [facility] Mid Line Urinary Cath still in place: No Assessment/Plan Hospital Course Assessment and plan 1. Healthcare acquired pneumonia. - Continue with antibiotics. - ID consult is following. - prelim blood culture showing coagulase negative staph. f/u final cultures 2. Acute on chronic respiratory failure. - Wire Insulator following. - Continue pulmonary hygiene. - reports worse breathing. f/u CXR 4. History of COPD. -Follow-up with pulmonary recommendations. 5. Dysphagia. - puree diet per ST Dispo/plan: f/u CXR for worse breathing. f/u final cultures. check AM labs. plan for d/c to snf once medically stable Discussed plan of care with Dr. Walls Result Diagram: 09/12/1835 09/12/1835 Subjective 24 Hr Interval Summary Free Text/Dictation reports having some difficulty with breathing Exam/Review of Systems Exam Vitals Vital Signs Date Temp Pulse Resp B/P (MAP) Pulse Ox O2 O2 Flow FiO2 Time Delivery Rate 09/13/18 90 18 100 30 11:16 09/13/18 142/76 08:59 (98) 09/13/18 98.0 Room Air 07:51 09/12/18 10.0 20:11 Intake and Output 09/12/18 09/12/18 09/13/18 1515:00 23:00 07:00 IntakeIntake Total 600 ml OutputOutput Total 375 ml BalanceBalance 225 ml Constitutional: alert, oriented Psych: nl mood/affect Neck: other (trach to vent) Respiratory: diminished breath sounds Gastrointestinal: soft, non-tender Neurological: nl mental status Medications Medication Current Medications Piperacillin Sod/ Tazobactam Sod 100 ml @ 200 mls/hr Q6 IVPB Last administered on 09/13/18at 11:33; Admin Dose 200 MLS/HR; Start 09/11/18 at 12:00 Vancomycin HCl (Vanco Iv Per Pharmacy) VANCOMYCIN PER PHARMACY PER PROTOCOL XX ; Start 09/11/18 at 10:00 Amlodipine Besylate (Norvasc) 10 mg DAILY PO Last administered on 09/13/18 08:58; Admin Dose 10 MG; Start 09/12/18 at 09:00 Lisinopril (Zestril) 20 mg DAILY PO Last administered on 09/13/18 08:58; Admin Dose 20 MG; Start 09/12/18 at 09:00 Vancomycin HCl 1.25 gm/Sodium Chloride 250 ml @ 83.333 mls/ hr Q24H IVPB Last administered on 09/12/18 13:22; Admin Dose 83.333 MLS/HR; Start 09/12/18 at 12:30 Methylprednisolone Sodium Succinate (Solu-Medrol) 40 mg Q8 IV Last administered on 09/13/18 05:34; Admin Dose 40 MG; Start 09/11/18 at 14:30 IV Flush (NS 3 ml) 3 ml PER PROTOCOL IV ; Start 09/11/18 at 14:30 Acetaminophen (Tylenol Supp) 650 mg Q6H PRN [place] .PAIN 1-3 OR TEMP; Start 09/11/18 at 14:30 Enoxaparin Sodium (Lovenox) 40 mg DAILY SC Last administered on 09/13/18 09:04; Admin Dose 40 MG; Start 09/12/18 at 09:00 Sodium Chloride 1,000 ml @ 50 mls/hr Q20H IV Last administered on 09/13/18 03:38; Admin Dose 50 MLS/HR; Start 09/11/18 at 14:30 Albuterol (Ventolin Hfa) 4 puff Q4H RESP THERAPY INH Last administered on 09/13/18 09:10; Admin Dose 4 PUFF; Start 09/12/18 at 05:00 Ipratropium [place] (Atrovent Hfa) 4 puff Q4H RESP THERAPY INH Last administered on 09/13/18 09:10; Admin Dose 4 PUFF; Start 09/12/18 at 05:00 Multivitamins/ Minerals (Theragran-M) 1 tab DAILY PO Last administered on 09/13/18 08:57; Admin Dose 1 TAB; Start 09/12/18 at 15:00 Zinc Sulfate (Zinc Sulfate) 220 mg DAILY PO Last administered on 09/13/18 08:57; Admin Dose 220 MG; Start 09/12/18 at 15:00 Ascorbic Acid (Vitamin C) 250 mg DAILY PO Last administered on 09/13/18at 08:57; Admin Dose 250 MG; Start 09/12/18 at 15:00 Tobramycin Sulfate/Sodium Chloride (Darnell Inhal) 300 mg BID RESP THERAPY NEB Last administered on 09/13/18at 09:10; Admin Dose 300 MG; Start 09/12/18 at 20:00 Albuterol/ Ipratropium (Duoneb) 3 ml Q4H RESP THERAPY PRN HHN SHORTNESS OF BREATH Last administered on 09/12/18at 20:51; Admin Dose 3 ML; Start 09/12/18 at 20:30 Miscellaneous Information (*Rx Drug Level Order Reminder*) 1 1130 ONCE XX ; Start 09/14/18 at 11:30; Stop 09/14/18 at 11:31 TAINA HALLMAN NP September 13, 2018 11:54
[2018-09-13] MEDS: VANCOMYCIN HCL 1.25 GM in SOD CHLORIDE 0.9% 250 ML IVPB SCH (12:36)
--- NOTE | 2018-09-13 19:18 | CONS ---
Assessment/Plan Assessment/Plan Hospital Course (Demo Recall) ID PROGRESS NOTE CURRENT ABX=Day # => Vanco IV + Zosyn + Tobra INH 09/13/18 1204 09/13/18 1204 24H INTERVAL SUMMARY * A/A/ resting on trach mask -- frail chronic debility, responsive, calm, polite, VSS, NAD, no c/o offered * WBC rising today -- (+)GNR BCX + IV steroid onboard * Indwelling: Tracheostomy MICRO * 09/11/18 BCX (+) 1/2 bottles CoNS * 09/12/18 BCx (-) * 09/13/18 BCX (+) BLOOD CULTURE Preliminary BCULT GRAM BOTTLE 1 Gram negative rods . seen on gram stain of the broth Organism 1 GRAM NEGATIVE MALKA * Sputum culture grew multidrug-resistant Pseudomonas and Acinetobacter prior admission PHYSICAL EXAMINATION: GENERAL:VSS, NAD HEENT: Unremarkable NECK: Supple, trach (+)secure CHEST: Rise symmetrical, without dyspnea on observation HEART: Pulse RRR ABDOMEN: Soft, ND EXTREMITIES: Warm, moves all extremities ID ASSESSMENT 67 yo M admit with: 1. GNR sepsis w/fevers, leukocytosis * 09/13/18 BCX (+) BLOOD CULTURE Preliminary Organism 1 GRAM NEGATIVE MALKA 2. Acute on chronic respiratory failure 3. Aspiration pneumonitis suspected without full blown PNA * Recurrent silent aspiration see barium swallow results 4. Advanced COPD emphysema w/bullous lung disease 5. Long-standing history of intermittent hemoptysis likely from underlying bronchiectasis. * (-)work up for MTB prior admission 6. Anemia INVASIVES: Trach ABX ALLERGY: KNDA CURRENT ABX: => Vanco IV + Zosyn + Tobra INH ID RECOMMENDATIONS 1. Continue current ABX 2. Await GNR micro results pending . . Consultation Date/Type/Reason Admit Date/Time September 11, 2018 at 07:55 Initial Consult Date Date/Time of Note DATE: 09/13/18 TIME: 19:07 Exam/Review of Systems Exam Vitals Vital Signs Date Temp Pulse Resp B/P (MAP) Pulse Ox O2 O2 Flow FiO2 Time Delivery Rate 09/13/18 86 18 100 30 17:00 09/13/18 97.8 157/79 Mechanical 15:30 (105) Ventilator Trach Collar 09/12/18 10.0 20:11 Intake and Output 09/12/18 09/12/18 09/13/18 1515:00 23:00 07:00 IntakeIntake Total 600 ml OutputOutput Total 375 ml BalanceBalance 225 ml Results Result Diagram: 09/13/18 1204 09/13/18 1204 Results 24hrs Laboratory Tests Test 09/13/18 12:04 White Blood Count 17.1 #H Red Blood Count 3.84 L Hemoglobin 9.1 L Hematocrit 30.3 L Mean Corpuscular Volume 78.9 L Mean Corpuscular Hemoglobin 23.7 L Mean Corpuscular Hemoglobin Concent 30.0 L Red Cell Distribution Width 21.1 H Platelet Count 307 Mean Platelet Volume 10.3 Immature Granulocytes % 0.600 H Neutrophils % 93.7 H Lymphocytes % 3.5 L Monocytes % 2.1 Eosinophils % 0.0 Basophils % 0.1 Nucleated Red Blood Cells % 0.0 Immature Granulocytes # 0.100 H Neutrophils # 16.1 H Lymphocytes # 0.6 L Monocytes # 0.4 Eosinophils # 0.0 Basophils # 0.0 Nucleated Red Blood Cells # 0.0 Sodium Level 139 Potassium Level 3.9 Chloride Level 106 Carbon Dioxide Level 23 Anion Gap 10 Blood Urea Nitrogen 33 #H Creatinine 1.14 Est Glomerular Filtrat Rate mL/min > 60 Glucose Level 178 Calcium Level 8.6 Medications Medication Current Medications Piperacillin Sod/ Tazobactam Sod 100 ml @ 200 mls/hr Q6 IVPB Last administered on 09/13/18at 17:41; Admin Dose 200 MLS/HR; Start 09/11/18 at 12:00 Vancomycin HCl (Vanco Iv Per Pharmacy) VANCOMYCIN PER PHARMACY PER PROTOCOL XX ; Start 09/11/18 at 10:00 Amlodipine Besylate (Norvasc) 10 mg DAILY PO Last administered on 09/13/18at 08:58; Admin Dose 10 MG; Start 09/12/18 at 09:00 Lisinopril (Zestril) 20 mg DAILY PO Last administered on 09/13/18at 08:58; Admin Dose 20 MG; Start 09/12/18 at 09:00 Vancomycin HCl 1.25 gm/Sodium Chloride 250 ml @ 83.333 mls/ hr Q24H IVPB Last administered on 09/13/18at 12:36; Admin Dose 83.333 MLS/HR; Start 09/12/18 at 12:30 Methylprednisolone Sodium Succinate (Solu-Medrol) 40 mg Q8 IV Last administered on 09/13/18 14:07; Admin Dose 40 MG; Start 09/11/18 at 14:30 IV Flush (NS 3 ml) 3 ml PER PROTOCOL IV ; Start 09/11/18 at 14:30 Acetaminophen (Tylenol Supp) 650 mg Q6H PRN [place] .PAIN 1-3 OR TEMP; Start 09/11/18 at 14:30 Enoxaparin Sodium (Lovenox) 40 mg DAILY SC Last administered on 09/13/18 09:04; Admin Dose 40 MG; Start 09/12/18 at 09:00 Sodium Chloride 1,000 ml @ 50 mls/hr Q20H IV Last administered on 09/13/18 03:38; Admin Dose 50 MLS/HR; Start 09/11/18 at 14:30 Albuterol (Ventolin Hfa) 4 puff Q4H RESP THERAPY INH Last administered on 09/13/18 17:00; Admin Dose 4 PUFF; Start 09/12/18 at 05:00 Ipratropium [place] (Atrovent Hfa) 4 puff Q4H RESP THERAPY INH Last administered on 09/13/18 17:00; Admin Dose 4 PUFF; Start 09/12/18 at 05:00 Multivitamins/ Minerals (Theragran-M) 1 tab DAILY PO Last administered on 09/13/18 08:57; Admin Dose 1 TAB; Start 09/12/18 at 15:00 Zinc Sulfate (Zinc Sulfate) 220 mg DAILY PO Last administered on 09/13/18 08:57; Admin Dose 220 MG; Start 09/12/18 at 15:00 Ascorbic Acid (Vitamin C) 250 mg DAILY PO Last administered on 09/13/18 08:57; Admin Dose 250 MG; Start 09/12/18 at 15:00 Tobramycin Sulfate/Sodium Chloride (Darnell Inhal) 300 mg BID RESP THERAPY NEB Last administered on 09/13/18 09:10; Admin Dose 300 MG; Start 09/12/18 at 20:00 Albuterol/ Ipratropium (Duoneb) 3 ml Q4H RESP THERAPY PRN HHN SHORTNESS OF BREATH Last administered on 09/12/18 20:51; Admin Dose 3 ML; Start 09/12/18 at 20:30 Miscellaneous Information (*Rx Drug Level Order Reminder*) 1 1130 ONCE XX ; Start 09/14/18 at 11:30; Stop 09/14/18 at 11:31 OJ ROMEO NP September 13, 2018 19:17
[2018-09-13] MEDS ORDERED: HYDROCODONE/APAP (5/325) TAB PO PRN (21:00)
[2018-09-14] VITALS (24 sets, daily range): BP systolic 134–162; BP diastolic 72–96; PULSE 72–118; RESP 16–22
[2018-09-14] MEDS: PIPER-TAZO 3.375 GM IV (PMX) 100 ML IVPB SCH ×4 (00:31→17:31)
[2018-09-14] MEDS: SOD CHLORIDE 0.45% 1,000 ML IV SCH ×2 (00:31→02:30)
[2018-09-14] MEDS: ALBUTEROL HFA 8 GM INHALER INH SCH ×6 (01:50→20:48)
[2018-09-14] MEDS: IPRATROPIUM (HFA) 12.9 GM INHALER INH SCH ×6 (01:50→20:48)
[2018-09-14] MEDS: METHYLPREDNISOLONE 40 MG INJ IV SCH ×3 (07:01→21:25)
[2018-09-14] MEDS: ASCORBIC ACID 250 MG TAB PO SCH (08:50)
[2018-09-14] MEDS: ZINC SULFATE 220 MG CAP PO SCH (08:50)
[2018-09-14] MEDS: LISINOPRIL 20 MG TAB PO SCH (08:50)
[2018-09-14] MEDS: MULTIVITAMINS/MINERALS TAB PO SCH (08:50)
[2018-09-14] MEDS: AMLODIPINE 10 MG TAB PO SCH (08:50)
[2018-09-14] MEDS: BALSAM PERU/CASTOR OIL 60 GM TUBE TOP SCH ×2 (08:51→20:42)
[2018-09-14] MEDS: ENOXAPARIN 40 MG/0.4 ML SYG SC SCH (09:00)
[2018-09-14] MEDS: TOBRAMYCIN/0.25NS 300 MG/5 ML INHAL NEB SCH ×2 (09:12→20:48)
--- NOTE | 2018-09-14 11:25 | CONS ---
Assessment/Plan Assessment/Plan Assessment/Plan (Daily) Ventilator setting; assist control of 16, tidal volume 500, PEEP of 5, 30% FiO2. Assessment and recommendations; 1. Patient admitted with dyspnea, etiology is unclear. Patient has a history of severe bullous emphysema with history of recurrent hemoptysis status post extensive work-up in the past. Chest x-ray notes fairly clear. 2. Leukocytosis, etiology is unclear. 3. History of tracheostomy, patient currently on invasive mechanical ventilation. 4. History of mild chronic type II respiratory failure. 5. Generalized deconditioning. 6. Coagulase-negative staph aureus bacteremia. Possibly contaminant. Patient however currently on appropriate antimicrobial regimen. Continue with supportive care. Switch over to T-piece and daytime with continuation of invasive mechanical ventilation nocturnally. Consultation Date/Type/Reason Admit Date/Time September 11, 2018 at 07:55 Initial Consult Date Type of Consult Pulmonary Date/Time of Note DATE: 09/14/18 TIME: 11:23 24 HR Interval Summary Free Text/Dictation Patient's condition is stable. Remains awake and alert. Has remained hemodynamically stable. General exam; elderly male, awake and alert. Currently in no distress. On ventilator via tracheostomy. Exam/Review of Systems Exam Vitals Vital Signs Date Temp Pulse Resp B/P (MAP) Pulse Ox O2 O2 Flow FiO2 Time Delivery Rate 09/14/18 95 16 100 30 09:34 09/14/18 96.8 159/94 Mechanical 08:44 (115) Ventilator Trach Collar 09/12/18 10.0 20:11 Intake and Output 09/13/18 09/13/18 09/14/18 1515:00 23:00 07:00 IntakeIntake Total 100 ml 1030 ml 1550 ml OutputOutput Total 1200 ml 1000 ml BalanceBalance 100 ml -170 ml 550 ml Exam H EENT exam; supple neck, no JVD. No lymphadenopathy. Midline trachea. No thy romegaly. Patient is edentulous. Tracheostomy in place. Insertion site is clean. Chest exam; diminished but clear breath sounds. S1-S2 audible, no murmurs. Regular rhythm. Abdomen exam; soft, scaphoid. Nontender. No organomegaly. There is a well- healed epigastric scar. Extremity exam; no peripheral edema clubbing. INSERTER OPERATOR exam; no focal motor deficit. Results Result Diagram: 09/13/18 1204 09/14/18 0609 Results 24hrs Laboratory Tests Test 09/13/18 12:04 09/14/18 06:09 White Blood Count 17.1 #H Red Blood Count 3.84 L Hemoglobin 9.1 L Hematocrit 30.3 L Mean Corpuscular Volume 78.9 L Mean Corpuscular Hemoglobin 23.7 L Mean Corpuscular Hemoglobin Concent 30.0 L Red Cell Distribution Width 21.1 H Platelet Count 307 Mean Platelet Volume 10.3 Immature Granulocytes % 0.600 H Neutrophils % 93.7 H Lymphocytes % 3.5 L Monocytes % 2.1 Eosinophils % 0.0 Basophils % 0.1 Nucleated Red Blood Cells % 0.0 Immature Granulocytes # 0.100 H Neutrophils # 16.1 H Lymphocytes # 0.6 L Monocytes # 0.4 Eosinophils # 0.0 Basophils # 0.0 Nucleated Red Blood Cells # 0.0 Sodium Level 139 Potassium Level 3.9 Chloride Level 106 Carbon Dioxide Level 23 Anion Gap 10 Blood Urea Nitrogen 33 #H 29 H Creatinine 1.14 1.03 Est Glomerular Filtrat Rate mL/min > 60 Glucose Level 178 Calcium Level 8.6 Medications Medication Current Medications Piperacillin Sod/ Tazobactam Sod 100 ml @ 200 mls/hr Q6 IVPB Last administered on 09/14/18at 07:01; Admin Dose 200 MLS/HR; Start 09/11/18 at 12:00 Vancomycin HCl (Vanco Iv Per Pharmacy) VANCOMYCIN PER PHARMACY PER PROTOCOL XX ; Start 09/11/18 at 10:00 Amlodipine Besylate (Norvasc) 10 mg DAILY PO Last administered on 09/14/18at 08:50; Admin Dose 10 MG; Start 09/12/18 at 09:00 Lisinopril (Zestril) 20 mg DAILY PO Last administered on 09/14/18at 08:50; Admin Dose 20 MG; Start 09/12/18 at 09:00 Vancomycin HCl 1.25 gm/Sodium Chloride 250 ml @ 83.333 mls/ hr Q24H IVPB Last administered on 09/13/18at 12:36; Admin Dose 83.333 MLS/HR; Start 09/12/18 at 12:30 Methylprednisolone Sodium Succinate (Solu-Medrol) 40 mg Q8 IV Last administered on 09/14/18at 07:01; Admin Dose 40 MG; Start 09/11/18 at 14:30 IV Flush (NS 3 ml) 3 ml PER PROTOCOL IV ; Start 09/11/18 at 14:30 Acetaminophen (Tylenol Supp) 650 mg Q6H PRN [place] .PAIN 1-3 OR TEMP; Start 09/11/18 at 14:30 Enoxaparin Sodium (Lovenox) 40 mg DAILY SC Last administered on 09/14/18 09:00; Admin Dose 40 MG; Start 09/12/18 at 09:00 Sodium Chloride 1,000 ml @ 50 mls/hr Q20H IV Last administered on 09/14/18 00:31; Admin Dose 50 MLS/HR; Start 09/11/18 at 14:30 Albuterol (Ventolin Hfa) 4 puff Q4H RESP THERAPY INH Last administered on 09/14/18 09:10; Admin Dose 4 PUFF; Start 09/12/18 at 05:00 Ipratropium [place] (Atrovent Hfa) 4 puff Q4H RESP THERAPY INH Last administered on 09/14/18 09:10; Admin Dose 4 PUFF; Start 09/12/18 at 05:00 Multivitamins/ Minerals (Theragran-M) 1 tab DAILY PO Last administered on 09/14/18 08:50; Admin Dose 1 TAB; Start 09/12/18 at 15:00 Zinc Sulfate (Zinc Sulfate) 220 mg DAILY PO Last administered on 09/14/18 08:50; Admin Dose 220 MG; Start 09/12/18 at 15:00 Ascorbic Acid (Vitamin C) 250 mg DAILY PO Last administered on 09/14/18 08:50; Admin Dose 250 MG; Start 09/12/18 at 15:00 Tobramycin Sulfate/Sodium Chloride (Darnell Inhal) 300 mg BID RESP THERAPY NEB Last administered on 09/14/18 09:12; Admin Dose 300 MG; Start 09/12/18 at 20:00 Albuterol/ Ipratropium (Duoneb) 3 ml Q4H RESP THERAPY PRN HHN SHORTNESS OF BREATH Last administered on 09/12/18at 20:51; Admin Dose 3 ML; Start 09/12/18 at 20:30 Miscellaneous Information (*Rx Drug Level Order Reminder*) 1 1130 ONCE XX ; Start 5/26/19 at 11:30; Stop 09/14/18 at 11:31 CRISTINA MORRIS September 14, 2018 11:25
[2018-09-14] MEDS: VANCOMYCIN HCL 1.25 GM in SOD CHLORIDE 0.9% 250 ML IVPB SCH (12:48)
--- NOTE | 2018-09-14 14:23 | CONS ---
Assessment/Plan Assessment/Plan Hospital Course (Demo Recall) ID PROGRESS NOTE CURRENT ABX=Day # => Vanco IV + Zosyn + Tobra INH 09/14/18 1134 09/14/18 0609 24H INTERVAL SUMMARY * No new issues = sting on trach mask -- frail chronic debility,VSS, NAD, no c/o offered * WBC rising today -- (+)GNR BCX + IV steroid onboard * Indwelling: Tracheostomy MICRO * 09/11/18 BCX (+) 1/2 bottles CoNS == SUSPECT PICC LINE INFX * 09/12/18 BCx (-) * 09/13/18 BCX (+) BLOOD CULTURE Preliminary SUSPECT PICC LINE INFX BCULT GRAM BOTTLE 1 Gram negative rods . seen on gram stain of the broth Organism 1 BACILLUS SPECIES * Sputum culture grew multidrug-resistant Pseudomonas and Acinetobacter prior admission PHYSICAL EXAMINATION: GENERAL:VSS, NAD HEENT: Unremarkable NECK: Supple, trach (+)secure CHEST: Rise symmetrical, without dyspnea on observation HEART: Pulse RRR ABDOMEN: Soft, ND EXTREMITIES: Warm, moves all extremities ID ASSESSMENT 67 yo M admit with: 1. GNR sepsis w/fevers, leukocytosis => SUSPECT PICC LINE INFX * 09/11/18 BCX (+) 1/2 bottles CoNS * 09/13/18 BCX (+) 1/2 bottles BLOOD CULTURE Preliminary Organism 1 BACILLUS SPECIES 2. Acute on chronic respiratory failure 3. Aspiration pneumonitis suspected without full blown PNA * Recurrent silent aspiration see barium swallow results 4. Advanced COPD emphysema w/bullous lung disease 5. Long-standing history of intermittent hemoptysis likely from underlying bronchiectasis. * (-)work up for MTB prior admission 6. Anemia INVASIVES: Trach, PICC RUEXT ABX ALLERGY: KNDA CURRENT ABX: => Vanco IV + Zosyn + Tobra INH ID RECOMMENDATIONS 1. Continue current ABX 2. Await GNR micro results FINAL still pending 3. SUSPECT PICC LINE INFX = Can he have new PICC Placed in left arm if no contraindication? . . Consultation Date/Type/Reason Admit Date/Time September 11, 2018 at 07:55 Initial Consult Date Date/Time of Note DATE: 09/14/18 TIME: 14:16 Exam/Review of Systems Exam Vitals Vital Signs Date Temp Pulse Resp B/P (MAP) Pulse Ox O2 O2 Flow FiO2 Time Delivery Rate 09/14/18 92 16 100 30 13:30 09/14/18 97.8 156/86 Mechanical 11:56 (109) Ventilator Trach Collar 09/12/18 10.0 20:11 Intake and Output 09/13/18 09/13/18 09/14/18 1515:00 23:00 07:00 IntakeIntake Total 100 ml 1030 ml 1550 ml OutputOutput Total 1200 ml 1000 ml BalanceBalance 100 ml -170 ml 550 ml Results Result Diagram: 09/14/18 1134 09/14/18 0609 Results 24hrs Laboratory Tests Test 09/14/18 06:09 09/14/18 11:34 Blood Urea Nitrogen 29 H Creatinine 1.03 White Blood Count 13.0 #H Red Blood Count 4.11 L Hemoglobin 9.6 L Hematocrit 31.7 L Mean Corpuscular Volume 77.1 L Mean Corpuscular Hemoglobin 23.4 L Mean Corpuscular Hemoglobin Concent 30.3 L Red Cell Distribution Width 20.9 H Platelet Count 284 Mean Platelet Volume 9.5 Immature Granulocytes % 0.500 H Neutrophils % 94.5 H Lymphocytes % 3.1 L Monocytes % 1.8 Eosinophils % 0.0 Basophils % 0.1 Nucleated Red Blood Cells % 0.0 Immature Granulocytes # 0.070 H Neutrophils # 12.3 H Lymphocytes # 0.4 L Monocytes # 0.2 L Eosinophils # 0.0 Basophils # 0.0 Nucleated Red Blood Cells # 0.0 Vancomycin Level Trough 13.0 Medications Medication Current Medications Piperacillin Sod/ Tazobactam Sod 100 ml @ 200 mls/hr Q6 IVPB Last administered on 09/14/18at 12:07; Admin Dose 200 MLS/HR; Start 09/11/18 at 12:00 Vancomycin HCl (Vanco Iv Per Pharmacy) VANCOMYCIN PER PHARMACY PER PROTOCOL XX ; Start 09/11/18 at 10:00 Amlodipine Besylate (Norvasc) 10 mg DAILY PO Last administered on 09/14/18at 08:50; Admin Dose 10 MG; Start 09/12/18 at 09:00 Lisinopril (Zestril) 20 mg DAILY PO Last administered on 09/14/18at 08:50; Admin Dose 20 MG; Start 09/12/18 at 09:00 Vancomycin HCl 1.25 gm/Sodium Chloride 250 ml @ 83.333 mls/ hr Q24H IVPB Last administered on 09/14/18 12:48; Admin Dose 83.333 MLS/HR; Start 09/12/18 at 12:30 Methylprednisolone Sodium Succinate (Solu-Medrol) 40 mg Q8 IV Last administered on 09/14/18 14:11; Admin Dose 40 MG; Start 09/11/18 at 14:30 IV Flush (NS 3 ml) 3 ml PER PROTOCOL IV ; Start 09/11/18 at 14:30 Acetaminophen (Tylenol Supp) 650 mg Q6H PRN [place] .PAIN 1-3 OR TEMP; Start 09/11/18 at 14:30 Enoxaparin Sodium (Lovenox) 40 mg DAILY SC Last administered on 09/14/18 09:00; Admin Dose 40 MG; Start 09/12/18 at 09:00 Sodium Chloride 1,000 ml @ 50 mls/hr Q20H IV Last administered on 09/14/18 00:31; Admin Dose 50 MLS/HR; Start 09/11/18 at 14:30 Albuterol (Ventolin Hfa) 4 puff Q4H RESP THERAPY INH Last administered on 09/14/18 13:30; Admin Dose 4 PUFF; Start 09/12/18 at 05:00 Ipratropium [place] (Atrovent Hfa) 4 puff Q4H RESP THERAPY INH Last administered on 09/14/18 13:30; Admin Dose 4 PUFF; Start 09/12/18 at 05:00 Multivitamins/ Minerals (Theragran-M) 1 tab DAILY PO Last administered on 09/14/18 08:50; Admin Dose 1 TAB; Start 09/12/18 at 15:00 Zinc Sulfate (Zinc Sulfate) 220 mg DAILY PO Last administered on 09/14/18 08:50; Admin Dose 220 MG; Start 09/12/18 at 15:00 Ascorbic Acid (Vitamin C) 250 mg DAILY PO Last administered on 09/14/18 08:50; Admin Dose 250 MG; Start 09/12/18 at 15:00 Tobramycin Sulfate/Sodium Chloride (Darnell Inhal) 300 mg BID RESP THERAPY NEB Last administered on 09/14/18 09:12; Admin Dose 300 MG; Start 09/12/18 at 20:00 Albuterol/ Ipratropium (Duoneb) 3 ml Q4H RESP THERAPY PRN HHN SHORTNESS OF BREATH Last administered on 09/12/18at 20:51; Admin Dose 3 ML; Start 09/12/18 at 20:30 OJ ROMEO NP September 14, 2018 14:23
--- NOTE | 2018-09-14 15:11 | PN ---
Date/Time of Note Date/Time of Note DATE: 09/14/18 TIME: 15:07 Assessment/Plan VTE Prophylaxis Risk score (from Ns)>0 risk: 6 SCD applied (from Ns): Yes Pharmacological prophylaxis: LMWH Lines/Catheters IV [facility] Mid Line Urinary Cath still in place: No Assessment/Plan Hospital Course Assessment and plan 1. Healthcare acquired pneumonia. - Continue with antibiotics. - ID consult is following. 2. Acute on chronic respiratory failure. - Certified Breastfeeding Educator following. - Continue pulmonary hygiene. - reports worse breathing. f/u CXR 4. History of COPD. -Follow-up with pulmonary recommendations. 5. Dysphagia. - puree diet per ST 6. Bacteremia - f/u final cultures Dispo/plan: continue abx. f/u final cultures. Plan to transfer back to [facility] once cleared by consults Discussed plan of care with Dr. Walls Result Diagram: 09/14/18 1134 09/14/18 0609 Results 24hrs Laboratory Tests Test 09/14/18 06:09 09/14/18 11:34 Blood Urea Nitrogen 29 H Creatinine 1.03 White Blood Count 13.0 #H Red Blood Count 4.11 L Hemoglobin 9.6 L Hematocrit 31.7 L Mean Corpuscular Volume 77.1 L Mean Corpuscular Hemoglobin 23.4 L Mean Corpuscular Hemoglobin Concent 30.3 L Red Cell Distribution Width 20.9 H Platelet Count 284 Mean Platelet Volume 9.5 Immature Granulocytes % 0.500 H Neutrophils % 94.5 H Lymphocytes % 3.1 L Monocytes % 1.8 Eosinophils % 0.0 Basophils % 0.1 Nucleated Red Blood Cells % 0.0 Immature Granulocytes # 0.070 H Neutrophils # 12.3 H Lymphocytes # 0.4 L Monocytes # 0.2 L Eosinophils # 0.0 Basophils # 0.0 Nucleated Red Blood Cells # 0.0 Vancomycin Level Trough 13.0 Subjective 24 Hr Interval Summary Free Text/Dictation no s/s of distress. comfortable at present. reports better breathing Exam/Review of Systems Exam Vitals Vital Signs Date Temp Pulse Resp B/P (MAP) Pulse Ox O2 O2 Flow FiO2 Time Delivery Rate 09/14/18 92 16 100 30 13:30 09/14/18 97.8 156/86 Mechanical 11:56 (109) Ventilator Trach Collar 09/12/18 10.0 20:11 Intake and Output 09/13/18 09/13/18 09/14/18 1515:00 23:00 07:00 IntakeIntake Total 100 ml 1030 ml 1550 ml OutputOutput Total 1200 ml 1000 ml BalanceBalance 100 ml -170 ml 550 ml Constitutional: alert, oriented Psych: nl mood/affect Head: normocephalic Neck: other (trach to vent ) Cardiovascular: other (regular rate ) Gastrointestinal: soft, non-tender Neurological: nl mental status Results Results 24hrs Laboratory Tests Test 09/14/18 06:09 09/14/18 11:34 Blood Urea Nitrogen 29 H Creatinine 1.03 White Blood Count 13.0 #H Red Blood Count 4.11 L Hemoglobin 9.6 L Hematocrit 31.7 L Mean Corpuscular Volume 77.1 L Mean Corpuscular Hemoglobin 23.4 L Mean Corpuscular Hemoglobin Concent 30.3 L Red Cell Distribution Width 20.9 H Platelet Count 284 Mean Platelet Volume 9.5 Immature Granulocytes % 0.500 H Neutrophils % 94.5 H Lymphocytes % 3.1 L Monocytes % 1.8 Eosinophils % 0.0 Basophils % 0.1 Nucleated Red Blood Cells % 0.0 Immature Granulocytes # 0.070 H Neutrophils # 12.3 H Lymphocytes # 0.4 L Monocytes # 0.2 L Eosinophils # 0.0 Basophils # 0.0 Nucleated Red Blood Cells # 0.0 Vancomycin Level Trough 13.0 Medications Medication Current Medications Piperacillin Sod/ Tazobactam Sod 100 ml @ 200 mls/hr Q6 IVPB Last administered on 09/14/18at 12:07; Admin Dose 200 MLS/HR; Start 09/11/18 at 12:00 Vancomycin HCl (Vanco Iv Per Pharmacy) VANCOMYCIN PER PHARMACY PER PROTOCOL XX ; Start 09/11/18 at 10:00 Amlodipine Besylate (Norvasc) 10 mg DAILY PO Last administered on 09/14/18at 08:50; Admin Dose 10 MG; Start 09/12/18 at 09:00 Lisinopril (Zestril) 20 mg DAILY PO Last administered on 09/14/18at 08:50; Admin Dose 20 MG; Start 09/12/18 at 09:00 Vancomycin HCl 1.25 gm/Sodium Chloride 250 ml @ 83.333 mls/ hr Q24H IVPB Last administered on 09/14/18 12:48; Admin Dose 83.333 MLS/HR; Start 09/12/18 at 12:30 Methylprednisolone Sodium Succinate (Solu-Medrol) 40 mg Q8 IV Last administered on 09/14/18 14:11; Admin Dose 40 MG; Start 09/11/18 at 14:30 IV Flush (NS 3 ml) 3 ml PER PROTOCOL IV ; Start 09/11/18 at 14:30 Acetaminophen (Tylenol Supp) 650 mg Q6H PRN [place] .PAIN 1-3 OR TEMP; Start 09/11/18 at 14:30 Enoxaparin Sodium (Lovenox) 40 mg DAILY SC Last administered on 09/14/18 09:00; Admin Dose 40 MG; Start 09/12/18 at 09:00 Albuterol (Ventolin Hfa) 4 puff Q4H RESP THERAPY INH Last administered on 09/14/18 13:30; Admin Dose 4 PUFF; Start 09/12/18 at 05:00 Ipratropium [place] (Atrovent Hfa) 4 puff Q4H RESP THERAPY INH Last administered on 09/14/18 13:30; Admin Dose 4 PUFF; Start 09/12/18 at 05:00 Multivitamins/ Minerals (Theragran-M) 1 tab DAILY PO Last administered on 09/14/18 08:50; Admin Dose 1 TAB; Start 09/12/18 at 15:00 Zinc Sulfate (Zinc Sulfate) 220 mg DAILY PO Last administered on 09/14/18 08:50; Admin Dose 220 MG; Start 09/12/18 at 15:00 Ascorbic Acid (Vitamin C) 250 mg DAILY PO Last administered on 09/14/18 08:50; Admin Dose 250 MG; Start 09/12/18 at 15:00 Tobramycin Sulfate/Sodium Chloride (Darnell Inhal) 300 mg BID RESP THERAPY NEB Last administered on 09/14/18 09:12; Admin Dose 300 MG; Start 09/12/18 at 20:00 Albuterol/ Ipratropium (Duoneb) 3 ml Q4H RESP THERAPY PRN HHN SHORTNESS OF BREATH Last administered on 09/12/18 20:51; Admin Dose 3 ML; Start 09/12/18 at 20:30 TAINA HALLMAN NP September 14, 2018 15:11
[2018-09-15] VITALS (17 sets, daily range): BP systolic 157–180; BP diastolic 84–101; PULSE 60–94; RESP 16–22
[2018-09-15] MEDS: PIPER-TAZO 3.375 GM IV (PMX) 100 ML IVPB SCH ×4 (01:01→17:29)
[2018-09-15] MEDS: ALBUTEROL HFA 8 GM INHALER INH SCH ×6 (01:48→21:00)
[2018-09-15] MEDS: IPRATROPIUM (HFA) 12.9 GM INHALER INH SCH ×6 (01:48→21:00)
[2018-09-15] MEDS: METHYLPREDNISOLONE 40 MG INJ IV SCH ×2 (06:28→13:01)
[2018-09-15] MEDS: ASCORBIC ACID 250 MG TAB PO SCH (08:02)
[2018-09-15] MEDS: AMLODIPINE 10 MG TAB PO SCH (08:02)
[2018-09-15] MEDS: LISINOPRIL 20 MG TAB PO SCH (08:02)
[2018-09-15] MEDS: ZINC SULFATE 220 MG CAP PO SCH (08:02)
[2018-09-15] MEDS: BALSAM PERU/CASTOR OIL 60 GM TUBE TOP SCH (08:03)
[2018-09-15] MEDS: ENOXAPARIN 40 MG/0.4 ML SYG SC SCH (08:09)
[2018-09-15] MEDS: MULTIVITAMINS/MINERALS TAB PO SCH (09:00)
[2018-09-15] MEDS: TOBRAMYCIN/0.25NS 300 MG/5 ML INHAL NEB SCH ×2 (09:49→20:48)
--- NOTE | 2018-09-15 11:16 | CONS ---
Consult Date/Type/Reason Admit Date/Time September 11, 2018 at 07:55 Initial Consult Date Type of Consult Pulmonary Date/Time of Note DATE: 09/15/18 TIME: 11:14 Subjective Patient stable this morning on cholesterol no respiratory distress. Requesting to go home. Objective Vital Signs Date Temp Pulse Resp B/P (MAP) Pulse Ox O2 O2 Flow FiO2 Time Delivery Rate 09/15/18 72 16 100 30 09:40 09/15/18 98.3 177/85 07:46 (115) 09/15/18 Mechanical 04:53 Ventilator 09/12/18 10.0 20:11 Intake and Output 09/14/18 09/14/18 09/15/18 1515:00 23:00 07:00 IntakeIntake Total 600 ml 1380 ml 750 ml OutputOutput Total 900 ml 1350 ml BalanceBalance 600 ml 480 ml -600 ml Exam GENERAL: Elderly appearing gentleman on cool aerosol no respiratory distress. VITAL SIGNS: per chart NECK: Supple. No JVD or lymphadenopathy. CARDIAC EXAM: S1, S2. No added sounds or murmurs. CHEST: Diminished air entry bilaterally with few rales ABDOMEN: Soft, nontender. No guarding or rebound. EXTREMITIES: No cyanosis, clubbing or edema. NEUROLOGIC: Generalized weakness. No focal deficits. Vent Setting Ventilator Support Mode: AC Fraction of Inspired Oxygen pe: 30 Positive End Expiratory Pressu: 5.0 Results/Medications Result Diagram: 09/15/18 0651 09/15/18 0651 Results 24 hrs Laboratory Tests Test 09/14/18 11:34 09/15/18 06:51 White Blood Count 13.0 #H 10.3 # Red Blood Count 4.11 L 4.11 L Hemoglobin 9.6 L 9.7 L Hematocrit 31.7 L 31.8 L Mean Corpuscular Volume 77.1 L 77.4 L Mean Corpuscular Hemoglobin 23.4 L 23.6 L Mean Corpuscular Hemoglobin Concent 30.3 L 30.5 L Red Cell Distribution Width 20.9 H 20.7 H Platelet Count 284 266 Mean Platelet Volume 9.5 10.3 Immature Granulocytes % 0.500 H 0.300 Neutrophils % 94.5 H 87.6 H Lymphocytes % 3.1 L 7.5 L Monocytes % 1.8 4.5 Eosinophils % 0.0 0.0 Basophils % 0.1 0.1 Nucleated Red Blood Cells % 0.0 0.0 Immature Granulocytes # 0.070 H 0.030 Neutrophils # 12.3 H 9.0 H Lymphocytes # 0.4 L 0.8 Monocytes # 0.2 L 0.5 Eosinophils # 0.0 0.0 Basophils # 0.0 0.0 Nucleated Red Blood Cells # 0.0 0.0 Vancomycin Level Trough 13.0 Sodium Level 139 Potassium Level 4.1 Chloride Level 105 Carbon Dioxide Level 28 Anion Gap 6 Blood Urea Nitrogen 22 H Creatinine 0.94 Est Glomerular Filtrat Rate mL/min > 60 Glucose Level 124 # Calcium Level 9.1 Medications Current Medications Piperacillin Sod/ Tazobactam Sod 100 ml @ 200 mls/hr Q6 IVPB Last administered on 09/15/18at 06:29; Admin Dose 200 MLS/HR; Start 09/11/18 at 12:00 Vancomycin HCl (Vanco Iv Per Pharmacy) VANCOMYCIN PER PHARMACY PER PROTOCOL XX ; Start 09/11/18 at 10:00 Amlodipine Besylate (Norvasc) 10 mg DAILY PO Last administered on 09/15/18at 08:02; Admin Dose 10 MG; Start 09/12/18 at 09:00 Lisinopril (Zestril) 20 mg DAILY PO Last administered on 09/15/18at 08:02; Admin Dose 20 MG; Start 09/12/18 at 09:00 Vancomycin HCl 1.25 gm/Sodium Chloride 250 ml @ 83.333 mls/ hr Q24H IVPB Last administered on 09/14/18at 12:48; Admin Dose 83.333 MLS/HR; Start 09/12/18 at 12:30 Methylprednisolone Sodium Succinate (Solu-Medrol) 40 mg Q8 IV Last administered on 09/15/18at 06:28; Admin Dose 40 MG; Start 09/11/18 at 14:30 IV Flush (NS 3 ml) 3 ml PER PROTOCOL IV ; Start 09/11/18 at 14:30 Acetaminophen (Tylenol Supp) 650 mg Q6H PRN [place] .PAIN 1-3 OR TEMP; Start 09/11/18 at 14:30 Enoxaparin Sodium (Lovenox) 40 mg DAILY SC Last administered on 09/15/18at 08:09; Admin Dose 40 MG; Start 09/12/18 at 09:00 Albuterol (Ventolin Hfa) 4 puff Q4H RESP THERAPY INH Last administered on 09/15/18 08:48; Admin Dose 4 PUFF; Start 09/12/18 at 05:00 Ipratropium [place] (Atrovent Hfa) 4 puff Q4H RESP THERAPY INH Last administered on 09/15/18 08:48; Admin Dose 4 PUFF; Start 09/12/18 at 05:00 Multivitamins/ Minerals (Theragran-M) 1 tab DAILY PO Last administered on 09/15/18 09:00; Admin Dose 1 TAB; Start 09/12/18 at 15:00 Zinc Sulfate (Zinc Sulfate) 220 mg DAILY PO Last administered on 09/15/18 08:02; Admin Dose 220 MG; Start 09/12/18 at 15:00 Ascorbic Acid (Vitamin C) 250 mg DAILY PO Last administered on 09/15/18 08:02; Admin Dose 250 MG; Start 09/12/18 at 15:00 Tobramycin Sulfate/Sodium Chloride (Darnell Inhal) 300 mg BID RESP THERAPY NEB Last administered on 09/15/18 09:49; Admin Dose 300 MG; Start 09/12/18 at 20:00 Albuterol/ Ipratropium (Duoneb) 3 ml Q4H RESP THERAPY PRN HHN SHORTNESS OF BREATH Last administered on 09/12/18 20:51; Admin Dose 3 ML; Start 09/12/18 at 20:30 Assessment/Plan Hospital Course (Demo Recall) Assessment 1. Acute on chronic hypoxemic respiratory 2. Chronic bullous lung disease with recurrent hemoptysis Plan Patient now stable requesting to go home. MICHELLE estevez from pulmonary standpoint. VAUGHN NICHOLS MD, [facility] September 15, 2018 11:16
[2018-09-15] MEDS: VANCOMYCIN HCL 1.25 GM in SOD CHLORIDE 0.9% 250 ML IVPB SCH (11:35)
--- NOTE | 2018-09-15 12:47 | CONS ---
Assessment/Plan Assessment/Plan Hospital Course (Demo Recall) ID PROGRESS NOTE CURRENT ABX=Day # => Vanco IV + Zosyn + Tobra INH 09/15/18 0651 09/15/18 0651 24H INTERVAL SUMMARY * DC PLANNING --- BACK TO SNF -- DIAGNOSTIC WORK UP COMPLETED * SUSPECT POSSIBLE MIDLINE SEPSIS VS CONTAMINATED BCX * frail chronic debility,VSS, NAD, no c/o offered * WBC rising today -- (+)GNR BCX + IV steroid onboard * Indwelling: Tracheostomy MICRO * 09/11/18 BCX (+) 1/2 bottles CoNS == SUSPECT CONTAMINANT VS MIDLINE * 09/12/18 BCx (-) * 09/13/18 BCX (+) BLOOD CULTURE Preliminary SUSPECT CONTAMINANT VS MIDLINE BCULT GRAM BOTTLE 1 Gram negative rods . seen on gram stain of the broth Organism 1 BACILLUS SPECIES BACILLU SP Zone Size RX --------- --- * AMPICILLIN S * CEFAZOLIN S * CEFOTAXIME R * CEFUROXIME R * CIPROFLOXACIN S * CLINDAMYCIN R * ERYTHROMYCIN S * PENICILLIN S * VANCOMYCIN S * Sputum culture grew multidrug-resistant Pseudomonas and Acinetobacter prior admission PHYSICAL EXAMINATION: GENERAL:VSS, NAD HEENT: Unremarkable NECK: Supple, trach (+)secure CHEST: Rise symmetrical, without dyspnea on observation HEART: Pulse RRR ABDOMEN: Soft, ND EXTREMITIES: Warm, moves all extremities ID ASSESSMENT 67 yo M admit with: 1. GNR sepsis w/fevers, leukocytosis => SUSPECT false (+) skin contaminants vs Midline Infx * 09/11/18 BCX (+) 1/2 bottles CoNS * 09/13/18 BCX (+) 1/2 bottles BLOOD CULTURE Organism 1 BACILLUS SPECIES 2. Acute on chronic respiratory failure 3. Aspiration pneumonitis suspected without full blown PNA * Recurrent silent aspiration see barium swallow results 4. Advanced COPD emphysema w/bullous lung disease 5. Long-standing history of intermittent hemoptysis likely from underlying bronchiectasis. * (-)work up for MTB prior admission 6. Anemia INVASIVES: Trach, PICC RUEXT ABX ALLERGY: KNDA CURRENT ABX: => Vanco IV + Zosyn + Tobra INH ID RECOMMENDATIONS 1. => SUSPECT false (+) skin contaminants vs Midline Infx 2. DC Midline -- he has no evidence of true clinical sepsis 3. MAY DC TO SNF ON CIPRO 500MG PO bid X 10 DAYS = Strategy to AVOID placement of new vascular access . . Consultation Date/Type/Reason Admit Date/Time September 11, 2018 at 07:55 Initial Consult Date Date/Time of Note DATE: 09/15/18 TIME: 12:37 Exam/Review of Systems Exam Vitals Vital Signs Date Temp Pulse Resp B/P (MAP) Pulse Ox O2 O2 Flow FiO2 Time Delivery Rate 09/15/18 98.3 80 20 157/88 100 11:53 (111) 09/15/18 30 09:40 09/15/18 Mechanical 04:53 Ventilator 09/12/18 10.0 20:11 Intake and Output 09/14/18 09/14/18 09/15/18 1515:00 23:00 07:00 IntakeIntake Total 600 ml 1380 ml 750 ml OutputOutput Total 900 ml 1350 ml BalanceBalance 600 ml 480 ml -600 ml Results Result Diagram: 09/15/18 0651 09/15/18 0651 Results 24hrs Laboratory Tests Test 09/15/18 06:51 White Blood Count 10.3 # Red Blood Count 4.11 L Hemoglobin 9.7 L Hematocrit 31.8 L Mean Corpuscular Volume 77.4 L Mean Corpuscular Hemoglobin 23.6 L Mean Corpuscular Hemoglobin Concent 30.5 L Red Cell Distribution Width 20.7 H Platelet Count 266 Mean Platelet Volume 10.3 Immature Granulocytes % 0.300 Neutrophils % 87.6 H Lymphocytes % 7.5 L Monocytes % 4.5 Eosinophils % 0.0 Basophils % 0.1 Nucleated Red Blood Cells % 0.0 Immature Granulocytes # 0.030 Neutrophils # 9.0 H Lymphocytes # 0.8 Monocytes # 0.5 Eosinophils # 0.0 Basophils # 0.0 Nucleated Red Blood Cells # 0.0 Sodium Level 139 Potassium Level 4.1 Chloride Level 105 Carbon Dioxide Level 28 Anion Gap 6 Blood Urea Nitrogen 22 H Creatinine 0.94 Est Glomerular Filtrat Rate mL/min > 60 Glucose Level 124 # Calcium Level 9.1 Medications Medication Current Medications Piperacillin Sod/ Tazobactam Sod 100 ml @ 200 mls/hr Q6 IVPB Last administered on 09/15/18at 11:34; Admin Dose 200 MLS/HR; Start 09/11/18 at 12:00 Vancomycin HCl (Vanco Iv Per Pharmacy) VANCOMYCIN PER PHARMACY PER PROTOCOL XX ; Start 09/11/18 at 10:00 Amlodipine Besylate (Norvasc) 10 mg DAILY PO Last administered on 09/15/18 08:02; Admin Dose 10 MG; Start 09/12/18 at 09:00 Lisinopril (Zestril) 20 mg DAILY PO Last administered on 09/15/18 08:02; Admin Dose 20 MG; Start 09/12/18 at 09:00 Vancomycin HCl 1.25 gm/Sodium Chloride 250 ml @ 83.333 mls/ hr Q24H IVPB Last administered on 09/15/18 11:35; Admin Dose 83.333 MLS/HR; Start 09/12/18 at 12:30 Methylprednisolone Sodium Succinate (Solu-Medrol) 40 mg Q8 IV Last administered on 09/15/18 06:28; Admin Dose 40 MG; Start 09/11/18 at 14:30 IV Flush (NS 3 ml) 3 ml PER PROTOCOL IV ; Start 09/11/18 at 14:30 Acetaminophen (Tylenol Supp) 650 mg Q6H PRN [place] .PAIN 1-3 OR TEMP; Start 09/11/18 at 14:30 Enoxaparin Sodium (Lovenox) 40 mg DAILY SC Last administered on 09/15/18 08:09; Admin Dose 40 MG; Start 09/12/18 at 09:00 Albuterol (Ventolin Hfa) 4 puff Q4H RESP THERAPY INH Last administered on 09/15/18 08:48; Admin Dose 4 PUFF; Start 09/12/18 at 05:00 Ipratropium [place] (Atrovent Hfa) 4 puff Q4H RESP THERAPY INH Last ad ministered on 09/15/18 08:48; Admin Dose 4 PUFF; Start 09/12/18 at 05:00 Multivitamins/ Minerals (Theragran-M) 1 tab DAILY PO Last administered on 09/15/18 09:00; Admin Dose 1 TAB; Start 09/12/18 at 15:00 Zinc Sulfate (Zinc Sulfate) 220 mg DAILY PO Last administered on 09/15/18 08:02; Admin Dose 220 MG; Start 09/12/18 at 15:00 Ascorbic Acid (Vitamin C) 250 mg DAILY PO Last administered on 09/15/18 08:02; Admin Dose 250 MG; Start 09/12/18 at 15:00 Tobramycin Sulfate/Sodium Chloride (Darnell Inhal) 300 mg BID RESP THERAPY NEB Last administered on 09/15/18 09:49; Admin Dose 300 MG; Start 09/12/18 at 20:00 Albuterol/ Ipratropium (Duoneb) 3 ml Q4H RESP THERAPY PRN HHN SHORTNESS OF BREATH Last administered on 09/12/18 20:51; Admin Dose 3 ML; Start 09/12/18 at 20:30 OJ ROMEO NP September 15, 2018 12:47
--- NOTE | 2018-09-15 14:01 | PN ---
Date/Time of Note Date/Time of Note DATE: 09/15/18 TIME: 13:58 Assessment/Plan VTE Prophylaxis Risk score (from Ns)>0 risk: 5 SCD applied (from Ns): Yes Pharmacological prophylaxis: LMWH Lines/Catheters IV Catheter Type (from Rust): Mid Line Urinary Cath still in place: No Assessment/Plan Hospital Course SUBJECTIVE: no acute distress OBJECTIVE: Vital signs-see below PHYSICAL EXAM: Constitutional: chronically ill looking male with trach to vent. HEENT: Head atraumatic and normocephalic. Eyes: Extraocular muscles intact. Anicteric sclerae. Pupils equal bilaterally, reactive to light. NECK: Supple without lymph node. CHEST:+Mild wheezing RUL. Diminished bibasilar HEART: S1, S2. Regular rate and rhythm. ABDOMEN: Soft/non tender with no rebound tenderness. Bowel sounds were present. EXTREMITIES: No cyanosis, clubbing or edema. NEUROLOGIC: Alert and oriented x1. No focal deficit. No sensory deficit. PSYCHOSOCIAL: mostly nonverbal INTEGUMENTARY: No open wounds. ASSESSMENT AND PLAN:67 yo M w/cystic lung dx,chronic resp fx w/Trach,recent HAP/Sepsis here from SNF for SOB/Cough Acute on chronic respiratory failure -now stable -Pulmonary toileting -Aspiration precaution -DC IV steroids Healthcare acquired pneumonia -clinically improving -on Zosyn/vancomycin -breathing treatments History of cystic lung disease, with chronic bloody cough -Stable -continue neb treatments -Pulm on board History of COPD - Manage as per pulmonology Anemia -Stable H&H. -Oral iron Dysphagia -on pureed/nectar thick diet -aspiration precaution VT prophylaxis: Lovenox PUD prophylaxis: Pepcid DISPO:.DC planning pending ID recs Patient was seen in collaboration with Dr. Thomas. Result Diagram: 09/15/18 0651 09/15/18 0651 Results 24hrs Laboratory Tests Test 09/15/18 06:51 White Blood Count 10.3 # Red Blood Count 4.11 L Hemoglobin 9.7 L Hematocrit 31.8 L Mean Corpuscular Volume 77.4 L Mean Corpuscular Hemoglobin 23.6 L Mean Corpuscular Hemoglobin Concent 30.5 L Red Cell Distribution Width 20.7 H Platelet Count 266 Mean Platelet Volume 10.3 Immature Granulocytes % 0.300 Neutrophils % 87.6 H Lymphocytes % 7.5 L Monocytes % 4.5 Eosinophils % 0.0 Basophils % 0.1 Nucleated Red Blood Cells % 0.0 Immature Granulocytes # 0.030 Neutrophils # 9.0 H Lymphocytes # 0.8 Monocytes # 0.5 Eosinophils # 0.0 Basophils # 0.0 Nucleated Red Blood Cells # 0.0 Sodium Level 139 Potassium Level 4.1 Chloride Level 105 Carbon Dioxide Level 28 Anion Gap 6 Blood Urea Nitrogen 22 H Creatinine 0.94 Est Glomerular Filtrat Rate mL/min > 60 Glucose Level 124 # Calcium Level 9.1 Exam/Review of Systems Exam Vitals Vital Signs Date Temp Pulse Resp B/P (MAP) Pulse Ox O2 O2 Flow FiO2 Time Delivery Rate 09/15/18 88 12:00 09/15/18 98.3 20 157/88 100 11:53 (111) 09/15/18 30 09:40 09/15/18 Mechanical 04:53 Ventilator 09/12/18 10.0 20:11 Intake and Output 09/14/18 09/14/18 09/15/18 1515:00 23:00 07:00 IntakeIntake Total 600 ml 1380 ml 750 ml OutputOutput Total 900 ml 1350 ml BalanceBalance 600 ml 480 ml -600 ml Results Results 24hrs Laboratory Tests Test 09/15/18 06:51 White Blood Count 10.3 # Red Blood Count 4.11 L Hemoglobin 9.7 L Hematocrit 31.8 L Mean Corpuscular Volume 77.4 L Mean Corpuscular Hemoglobin 23.6 L Mean Corpuscular Hemoglobin Concent 30.5 L Red Cell Distribution Width 20.7 H Platelet Count 266 Mean Platelet Volume 10.3 Immature Granulocytes % 0.300 Neutrophils % 87.6 H Lymphocytes % 7.5 L Monocytes % 4.5 Eosinophils % 0.0 Basophils % 0.1 Nucleated Red Blood Cells % 0.0 Immature Granulocytes # 0.030 Neutrophils # 9.0 H Lymphocytes # 0.8 Monocytes # 0.5 Eosinophils # 0.0 Basophils # 0.0 Nucleated Red Blood Cells # 0.0 Sodium Level 139 Potassium Level 4.1 Chloride Level 105 Carbon Dioxide Level 28 Anion Gap 6 Blood Urea Nitrogen 22 H Creatinine 0.94 Est Glomerular Filtrat Rate mL/min > 60 Glucose Level 124 # Calcium Level 9.1 Medications Medication Current Medications Piperacillin Sod/ Tazobactam Sod 100 ml @ 200 mls/hr Q6 IVPB Last administered on 09/15/18 11:34; Admin Dose 200 MLS/HR; Start 09/11/18 at 12:00 Vancomycin HCl (Vanco Iv Per Pharmacy) VANCOMYCIN PER PHARMACY PER PROTOCOL XX ; Start 09/11/18 at 10:00 Amlodipine Besylate (Norvasc) 10 mg DAILY PO Last administered on 09/15/18 08:02; Admin Dose 10 MG; Start 09/12/18 at 09:00 Lisinopril (Zestril) 20 mg DAILY PO Last administered on 09/15/18 08:02; Admin Dose 20 MG; Start 09/12/18 at 09:00 Vancomycin HCl 1.25 gm/Sodium Chloride 250 ml @ 83.333 mls/ hr Q24H IVPB Last administered on 09/15/18 11:35; Admin Dose 83.333 MLS/HR; Start 09/12/18 at 12: 30 Methylprednisolone Sodium Succinate (Solu-Medrol) 40 mg Q8 IV Last administered on 09/15/18 13:01; Admin Dose 40 MG; Start 09/11/18 at 14:30 IV Flush (NS 3 ml) 3 ml PER PROTOCOL IV ; Start 09/11/18 at 14:30 Acetaminophen (Tylenol Supp) 650 mg Q6H PRN [place] .PAIN 1-3 OR TEMP; Start 09/11/18 at 14:30 Enoxaparin Sodium (Lovenox) 40 mg DAILY SC Last administered on 09/15/18 08:09; Admin Dose 40 MG; Start 09/12/18 at 09:00 Albuterol (Ventolin Hfa) 4 puff Q4H RESP THERAPY INH Last administered on 09/15/18 08:48; Admin Dose 4 PUFF; Start 09/12/18 at 05:00 Ipratropium [place] (Atrovent Hfa) 4 puff Q4H RESP THERAPY INH Last administered on 09/15/18 08:48; Admin Dose 4 PUFF; Start 09/12/18 at 05:00 Multivitamins/ Minerals (Theragran-M) 1 tab DAILY PO Last administered on 09/15/18 09:00; Admin Dose 1 TAB; Start 09/12/18 at 15:00 Zinc Sulfate (Zinc Sulfate) 220 mg DAILY PO Last administered on 09/15/18 08:02; Admin Dose 220 MG; Start 09/12/18 at 15:00 Ascorbic Acid (Vitamin C) 250 mg DAILY PO Last administered on 09/15/18 08:02; Admin Dose 250 MG; Start 09/12/18 at 15:00 Tobramycin Sulfate/Sodium Chloride (Darnell Inhal) 300 mg BID RESP THERAPY NEB Last administered on 09/15/18 09:49; Admin Dose 300 MG; Start 09/12/18 at 20:00 Albuterol/ Ipratropium (Duoneb) 3 ml Q4H RESP THERAPY PRN HHN SHORTNESS OF BREATH Last administered on 09/12/18at 20:51; Admin Dose 3 ML; Start 09/12/18 at 20:30 MALICK CABA NP September 15, 2018 14:01
[2018-09-15] MEDS: HYDROCODONE/APAP (5/325) TAB PO PRN ×2 (14:43→20:12)
[2018-09-15] MEDS: FERROUS SULFATE (EC) 325 MG TAB PO SCH ×2 (14:43→20:11)
[2018-09-15] MEDS: ALBUTEROL/IPRATROPIUM (NEB) 3 ML AMP HHN PRN ×2 (17:39→20:48)
[2018-09-16] VITALS (10 sets, daily range): BP systolic 127–169; BP diastolic 69–98; PULSE 69–100; RESP 18–20
[2018-09-16] MEDS: BALSAM PERU/CASTOR OIL 60 GM TUBE TOP SCH ×3 (00:05→20:21)
[2018-09-16] MEDS: PIPER-TAZO 3.375 GM IV (PMX) 100 ML IVPB SCH ×5 (00:20→23:52)
[2018-09-16] MEDS: ALBUTEROL/IPRATROPIUM (NEB) 3 ML AMP HHN PRN (00:30)
[2018-09-16] MEDS ORDERED: hydrALAzine 20 MG INJ IV PRN (00:30)
[2018-09-16] MEDS: IPRATROPIUM (HFA) 12.9 GM INHALER INH SCH (00:33)
[2018-09-16] MEDS: ALBUTEROL HFA 8 GM INHALER INH SCH (00:34)
[2018-09-16] MEDS: HYDROCODONE/APAP (5/325) TAB PO PRN ×4 (02:35→23:58)
[2018-09-16] MEDS ORDERED: LEVALBUTEROL (NEB) 1.25 MG/0.5 ML AMP HHN PRN (03:30)
[2018-09-16] MEDS: ALBUTEROL/IPRATROPIUM (NEB) 3 ML AMP HHN SCH ×5 (05:09→19:48)
[2018-09-16] MEDS: ENOXAPARIN 40 MG/0.4 ML SYG SC SCH (08:23)
[2018-09-16] MEDS: ZINC SULFATE 220 MG CAP PO SCH (08:27)
[2018-09-16] MEDS: ASCORBIC ACID 250 MG TAB PO SCH (08:27)
[2018-09-16] MEDS: MULTIVITAMINS/MINERALS TAB PO SCH (08:27)
[2018-09-16] MEDS: FERROUS SULFATE (EC) 325 MG TAB PO SCH ×2 (08:27→20:18)
[2018-09-16] MEDS: predniSONE 20 MG TAB PO SCH (08:27)
[2018-09-16] MEDS: LISINOPRIL 20 MG TAB PO SCH (08:28)
[2018-09-16] MEDS: AMLODIPINE 10 MG TAB PO SCH (08:28)
[2018-09-16] MEDS: TOBRAMYCIN/0.25NS 300 MG/5 ML INHAL NEB SCH ×2 (09:22→19:39)
--- NOTE | 2018-09-16 09:30 | PDOCDIS ---
Discharge Instructions CONDITION [id number] Patient Condition: [id number] Stable HOME CARE INSTRUCTIONS: [id number] Your diet recommendation is: [id number] PUREED NECTOR THICK FOLLOW UP/APPOINTMENTS Follow-up Plan DC TO [facility] MALICK CABA NP September 16, 2018 09:30
[2018-09-16] MEDS ORDERED: CLON-379 GTB (09:33)
[2018-09-16] MEDS ORDERED: PRED20TA PO (09:33)
[2018-09-16] MEDS ORDERED: MULT-843 PO (09:33)
[2018-09-16] MEDS ORDERED: ASCO250T96 PO (09:33)
[2018-09-16] MEDS ORDERED: CIPR500T4 PO (09:33)
[2018-09-16] MEDS ORDERED: FER325 PO (09:36)
[2018-09-16] MEDS ORDERED: ENOX40DI2 SC (09:37)
[2018-09-16] MEDS ORDERED: ZINC220C5 PO (09:38)
--- NOTE | 2018-09-16 10:59 | CONS ---
Assessment/Plan Assessment/Plan Assessment/Plan (Daily) Assessment and recommendations; 1. Patient with history of severe emphysema admitted for episode of shortness of breath likely acute bronchitis with significant interval clinical improvement. 2. History of multiple episodes of hemoptysis without any further recurrence. 3. Chronic respiratory failure doing very well on trach collar. Continue current supportive care. Consider stopping antibiotics and discharging the patient. Consultation Date/Type/Reason Admit Date/Time September 11, 2018 at 07:55 Initial Consult Date Type of Consult Pulmonary Date/Time of Note DATE: 09/16/18 TIME: 10:57 24 HR Interval Summary Free Text/Dictation Patient's condition is stable. Has been weaned back to trach collar. Denies any shortness of breath, coughing, sputum production and hemoptysis. General exam; elderly male, awake alert, currently no distress. Exam/Review of Systems Exam Vitals Vital Signs Date Temp Pulse Resp B/P (MAP) Pulse Ox O2 O2 Flow FiO2 Time Delivery Rate 09/16/18 71 18 98 Aerosol 5.0 28 09:31 09/16/18 97.9 164/97 07:50 (119) Intake and Output 09/15/18 09/15/18 09/16/18 1515:00 23:00 07:00 IntakeIntake Total 1350 ml 520 ml OutputOutput Total 2200 ml 1500 ml BalanceBalance -850 ml -980 ml Exam H EENT exam; supple neck, no JVD. No lymphadenopathy. Midline trachea. No thyromegaly. Tracheostomy in place. Patient is edentulous. Chest exam; diminished but clear breath sounds. S1-S2 audible, no murmurs. Regular rhythm. Abdomen exam; soft, nontender. No organomegaly. Bowel sounds audible. There is a well-healed epigastric scar. Extremity exam; no peripheral edema clubbing. 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 Results Result Diagram: 09/16/18 0509 09/16/18 0509 Results 24hrs Laboratory Tests Test 09/16/18 05:09 White Blood Count 12.2 H Red Blood Count 4.86 Hemoglobin 11.6 L Hematocrit 37.5 L Mean Corpuscular Volume 77.2 L Mean Corpuscular Hemoglobin 23.9 L Mean Corpuscular Hemoglobin Concent 30.9 L Red Cell Distribution Width 20.1 H Platelet Count 309 Mean Platelet Volume 10.0 Immature Granulocytes % 0.400 Neutrophils % 77.4 H Lymphocytes % 8.8 L Monocytes % 13.4 H Eosinophils % 0.0 Basophils % 0.0 Nucleated Red Blood Cells % 0.0 Immature Granulocytes # 0.050 H Neutrophils # 9.5 H Lymphocytes # 1.1 Monocytes # 1.6 H Eosinophils # 0.0 Basophils # 0.0 Nucleated Red Blood Cells # 0.0 Sodium Level 140 Potassium Level 4.6 Chloride Level 102 Carbon Dioxide Level 30 Anion Gap 8 Blood Urea Nitrogen 21 H Creatinine 0.87 Est Glomerular Filtrat Rate mL/min > 60 Glucose Level 126 Calcium Level 9.4 Medications Medication Current Medications Piperacillin Sod/ Tazobactam Sod 100 ml @ 200 mls/hr Q6 IVPB Last administered on 09/16/18at 06:00; Admin Dose 200 MLS/HR; Start 09/11/18 at 12:00 Vancomycin HCl (Vanco Iv Per Pharmacy) VANCOMYCIN PER PHARMACY PER PROTOCOL XX ; Start 09/11/18 at 10:00 Amlodipine Besylate (Norvasc) 10 mg DAILY PO Last administered on 09/16/18at 0 8:28; Admin Dose 10 MG; Start 09/12/18 at 09:00 Lisinopril (Zestril) 20 mg DAILY PO Last administered on 09/16/18at 08:28; Admin Dose 20 MG; Start 09/12/18 at 09:00 Vancomycin HCl 1.25 gm/Sodium Chloride 250 ml @ 83.333 mls/ hr Q24H IVPB Last administered on 09/15/18at 11:35; Admin Dose 83.333 MLS/HR; Start 09/12/18 at 12:30 IV Flush (NS 3 ml) 3 ml PER PROTOCOL IV ; Start 09/11/18 at 14:30 Acetaminophen (Tylenol Supp) 650 mg Q6H PRN [place] .PAIN 1-3 OR TEMP; Start 09/11/18 at 14:30 Enoxaparin Sodium (Lovenox) 40 mg DAILY SC Last administered on 09/16/18at 08:23; Admin Dose 40 MG; Start 09/12/18 at 09:00 Multivitamins/ Minerals (Theragran-M) 1 tab DAILY PO Last administered on 09/16/18at 08:27; Admin Dose 1 TAB; Start 09/12/18 at 15:00 Zinc Sulfate (Zinc Sulfate) 220 mg DAILY PO Last administered on 09/16/18 08:27; Admin Dose 220 MG; Start 09/12/18 at 15:00 Ascorbic Acid (Vitamin C) 250 mg DAILY PO Last administered on 09/16/18 08:27; Admin Dose 250 MG; Start 09/12/18 at 15:00 Tobramycin Sulfate/Sodium Chloride (Darnell Inhal) 300 mg BID RESP THERAPY NEB Last administered on 09/16/18 09:22; Admin Dose 300 MG; Start 09/12/18 at 20:00 Prednisone (Prednisone) 40 mg DAILY PO Last administered on 09/16/18 08:27; Admin Dose 40 MG; Start 09/16/18 at 09:00 Ferrous Sulfate (Ferrous Sulfate (Ec)) 325 mg BID PO Last administered on 09/16/18 08:27; Admin Dose 325 MG; Start 09/15/18 at 14:30 Acetaminophen/ Hydrocodone Bitart ([place] (5/325)) 1 tab Q6H PRN PO MODERATE PAIN LEVEL 4-6 Last administered on 09/16/18 08:38; Admin Dose 1 TAB; Start 09/15/18 at 15:00 Hydralazine HCl (Apresoline) 10 mg Q6H PRN IV ELEVATED SYSTOLIC BP; Start 09/16/18 at 00:30 Albuterol/ Ipratropium (Duoneb) 3 ml Q4H RESP THERAPY HHN Last administered on 09/16/18 09:21; Admin Dose 3 ML; Start 09/16/18 at 05:00 Levalbuterol (Xopenex Neb) 1.25 mg Q2H RESP THERAPY PRN HHN SHORTNESS OF BREATH; Start 09/16/18 at 03:30 Clonidine (Catapres) 0.1 mg TID PO Last administered on 09/16/18 10:25; Admin Dose 0.1 MG; Start 09/16/18 at 10:00 CRISTINA MORRIS September 16, 2018 10:59
[2018-09-16] MEDS: VANCOMYCIN HCL 1.25 GM in SOD CHLORIDE 0.9% 250 ML IVPB SCH (13:18)
--- NOTE | 2018-09-16 14:02 | DS ---
Date/Time of Note Date/Time of Note DATE: 09/16/18 TIME: 13:58 Discharge Summary Admission/Discharge Info Admit Date/Time September 11, 2018 at 07:55 Discharge Date/Time Discharge Diagnosis Acute on chronic respiratory failure W/Trach.stable Healthcare acquired pneumonia History of cystic lung disease, with chronic bloody cough History of COPD Anemia Dysphagia Patient Condition: Stable Consults ,pulmonary Procedures 2018: Chest x-ray. Hx of Present Illness This is a 67-year-old male with a history of cystic/emphysematous lung disease, chronic tracheostomy, chronic respiratory failure, transferred from custodial for worsening shortness of breath. Apparently, patient was discharged from [facility] in July 2018 and was treated for healthcare associated pneumonia, acute respiratory failure associated with pneumonia and cystic lung disease. Patient also was noted with septic shock with that admission. He was treated with antimicrobials and was discharged back to custodial in stable condition. According to medical records, it is noted that patient's called paramedics as patient was found and shortness of breath with increased respiratory rate and cough for several days. At my encounter with the patient, he is awake. Denies chest pain, palpitation, nausea, vomiting, abdominal pain, loss of consciousness, dizziness, headache, fever, chills, diarrhea or other constitutional symptoms. Labs showed hemoglobin 9.3, hematocrit 31.8, sodium 145. Chest x-ray showed bilateral perihilar/infrahilar patchy densities. Patient was given clindamycin, Zosyn in the emergency room and was admitted for pneumonia work-up. Hospital Course 67 yo M w/cystic lung dx,chronic resp fx w/Trach,recent HAP/Sepsis here from SNF for SOB/Cough.. Patient was noted with acute on chronic respiratory failure for which he required 24-hour mechanical ventilation. Patient was given pulmonary toileting. He was also given a short dose of steroid. Patient was being followed by drill punch operator. He was noted with healthcare acquired pneumonia which is recurrent for which he was also given tobramycin nebulization. Patient was also treated with Zosyn and vancomycin. Patient was noted with blood culture 1 out of 2 with coagulation negative staph, likely contamination. He also had recently species on the other set of blood culture which is more likely skin contaminant. Patient had a midline which was removed as he was not requiring any IV antibiotics on discharge. As per ID, patient needs doxycycline or Bactrim along with Levaquin for 14 more days. Patient was cleared from pulmonary standpoint for outpatient follow-up. He lives in assisted living facility where he will be transferred today in stable condition. Patient was also evaluated by speech team and was recommended pured/nectar thick diet. He will be also provided with a Passy-Avtar valve. Approximately 60-minute was spent on coordinating the discharge on this patient. Patient was seen in collaboration with Dr. Thomas. Home Meds Active Scripts Lisinopril* (Lisinopril*) 20 Mg Tablet, 20 MG PO DAILY for 30 Days, #30 TAB Prov:FRANKO SAUCEDA MD 08/19/18 Amlodipine Besylate* (Amlodipine Besylate*) 10 Mg Tablet, 10 MG PO DAILY for 30 Days, #30 TAB Prov:FRANKO SAUCEDA MD 08/19/18 Ipratropium-Albuterol (Ipratropium-Albuterol) 0.5-3 Mg/3 Ml Ampul.neb, 3 ML HHN Q6H RESP THERAPY for 30 Days, #120 DOSE Prov:FRANKO SAUCEDA MD 08/19/18 Reported Medications Gabapentin* (Gabapentin*) 800 Mg Tablet, 1 TAB GTB TID 09/11/18 Cephalexin* (Cephalexin*) 500 Mg Capsule, 1 CAP GTB TID 09/11/18 Pantoprazole* (Pantoprazole*) 40 Mg Tablet., 40 MG GTB AC BREAKFAST, TAB 07/17/18 Clonidine Hcl* (Clonidine Hcl*) 0.1 Mg Tab, 0.1 MG GTB NEEDED, TAB 07/17/18 Hydralazine Hcl* (Hydralazine Hcl*) 25 Mg Tab, 25 MG GTB Q8 PRN for NEEDED, #90 TAB 07/17/18 Alprazolam* (Xanax*) 2 Mg Tablet, 2 MG GTB Q8H PRN for ANXIETY, TAB 07/17/18 Hydrocodone/Acetaminophen ([place] 10-325 Tablet) 1 Each Tablet, 1 EACH GTB Q6H PRN for NEEDED, TAB 07/17/18 Discontinued Scripts Ferrous Sulfate* (Ferrous Sulfate*) 325 Mg Tabec, 325 MG PO DAILY for 30 Days, #30 TAB Prov:FRANKO SAUCEDA MD 08/19/18 Hydrocodone Bit-Acetaminophen (Hydrocodone Bit-APAP) 5-325MG Tablet, 1 TAB PO Q4H PRN for MODERATE PAIN LEVEL 4-6 for 7 Days, #20 TAB Prov:FRANKO SAUCEDA MD 08/19/18 Gabapentin* (Gabapentin*) 600 Mg Tablet, 600 MG PO TID for 30 Days, #90 TAB Prov:FRANKO SAUCEDA MD 08/19/18 Follow-up Plan DC TO [facility] Primary Care Provider Bontia Ahumada MD Pending Labs Laboratory Tests Test 09/16/18 05:09 09/16/18 12:35 White Blood Count 12.2 10^3/ul (4.8-10.8) Red Blood Count 4.86 10^6/ul (4.70-6.10) Hemoglobin 11.6 g/dl (14.0-18.0) Hematocrit 37.5 % (42.0-52.0) Mean Corpuscular Volume 77.2 fl (82.0-101.0) Mean Corpuscular Hemoglobin 23.9 pg (29.0-33.0) Mean Corpuscular 30.9 g/dl (32.0-37.0) Hemoglobin Concent Red Cell Distribution Width 20.1 % (11.5-14.5) Platelet Count 309 10^3/UL (140-415) Mean Platelet Volume 10.0 fl (7.4-10.4) Immature Granulocytes % 0.400 % (0.001-0.429) Neutrophils % 77.4 % (39.0-77.0) Lymphocytes % 8.8 % (15.0-51.0) Monocytes % 13.4 % (0.0-11.0) Eosinophils % 0.0 % (0.0-7.0) Basophils % 0.0 % (0.0-2.0) Nucleated Red Blood Cells % 0.0 /100WBC (0.0-0.0) Immature Granulocytes # 0.050 10^3/ul (0.0-0.031) Neutrophils # 9.5 10^3/ul (1.6-7.5) Lymphocytes # 1.1 10^3/ul (0.8-2.9) Monocytes # 1.6 10^3/ul (0.3-0.9) Eosinophils # 0.0 10^3/ul (0.0-0.5) Basophils # 0.0 10^3/ul (0.0-0.1) Nucleated Red Blood Cells # 0.0 10^3/ul (0.0-0.0) Sodium Level 140 mmol/L (135-144) Potassium Level 4.6 mmol/L (3.5-5.1) Chloride Level 102 mmol/L (97-110) Carbon Dioxide Level 30 mmol/L (21-31) Anion Gap 8 (5-13) Blood Urea Nitrogen 21 mg/dl (7-20) Creatinine 0.87 mg/dl (0.61-1.24) Est Glomerular Filtrat > 60 mL/min (>60) Rate mL/min Glucose Level 126 mg/dl (70-220) Calcium Level 9.4 mg/dl (8.4-10.2) Bedside Glucose 178 mg/dL (70-220) MALICK CABA NP September 16, 2018 14:02
--- NOTE | 2018-09-16 14:13 | CONS ---
Assessment/Plan Assessment/Plan Hospital Course (Demo Recall) No acute events. Patient is alert feels good comfortable on trach collar no fevers overnight. WBC 12.2 platelets 309 neutrophils 77.4. BUN 21 creatinine 0.87. Microbiology: Blood culture grew coag negative staph species and bacillus species Antimicrobials: Tobramycin inhalation, vancomycin Zosyn, day #6 PHYSICAL EXAMINATION: GENERAL: This is a chronically ill-appearing, cachectic, elderly - [place] man, who is alert, in no distress. HEENT: Head atraumatic, normocephalic. Sclerae anicteric. Buccal mucosa dry. NECK: Supple. Tracheostomy present. CHEST: Rise symmetrical. Breath sounds diminished to bases with scattered rhonchi. HEART: S1, S2. ABDOMEN: Soft, bowel sounds present. EXTREMITIES: Without cyanosis. Assessment: 1. Acute on chronic hypoxemic respiratory failure 2. Bullous emphysema with acute bronchitis and possible aspiration pneumonitis 3. Coag negative staph bacteremia consistent with contaminant 4. Cachexia Plan: Patient is stable pending discharge on oral ciprofloxacin Consultation Date/Type/Reason Admit Date/Time September 11, 2018 at 07:55 Initial Consult Date Type of Consult id Date/Time of Note DATE: 09/16/18 TIME: 14:11 Exam/Review of Systems Exam Vitals Vital Signs Date Temp Pulse Resp B/P (MAP) Pulse Ox O2 O2 Flow FiO2 Time Delivery Rate 09/16/18 98 18 98 Aerosol 5.0 28 12:40 09/16/18 130/81 12:30 (97) 09/16/18 97.9 07:50 Intake and Output 09/15/18 09/15/18 09/16/18 1515:00 23:00 07:00 IntakeIntake Total 1350 ml 520 ml OutputOutput Total 2200 ml 1500 ml BalanceBalance -850 ml -980 ml Results Result Diagram: 09/16/18 0509 09/16/18 0509 Results 24hrs Laboratory Tests Test 09/16/18 05:09 09/16/18 12:35 White Blood Count 12.2 H Red Blood Count 4.86 Hemoglobin 11.6 L Hematocrit 37.5 L Mean Corpuscular Volume 77.2 L Mean Corpuscular Hemoglobin 23.9 L Mean Corpuscular Hemoglobin Concent 30.9 L Red Cell Distribution Width 20.1 H Platelet Count 309 Mean Platelet Volume 10.0 Immature Granulocytes % 0.400 Neutrophils % 77.4 H Lymphocytes % 8.8 L Monocytes % 13.4 H Eosinophils % 0.0 Basophils % 0.0 Nucleated Red Blood Cells % 0.0 Immature Granulocytes # 0.050 H Neutrophils # 9.5 H Lymphocytes # 1.1 Monocytes # 1.6 H Eosinophils # 0.0 Basophils # 0.0 Nucleated Red Blood Cells # 0.0 Sodium Level 140 Potassium Level 4.6 Chloride Level 102 Carbon Dioxide Level 30 Anion Gap 8 Blood Urea Nitrogen 21 H Creatinine 0.87 Est Glomerular Filtrat Rate mL/min > 60 Glucose Level 126 Calcium Level 9.4 Bedside Glucose 178 Medications Medication Current Medications Piperacillin Sod/ Tazobactam Sod 100 ml @ 200 mls/hr Q6 IVPB Last administered on 09/16/18 12:38; Admin Dose 200 MLS/HR; Start 09/11/18 at 12:00 Vancomycin HCl (Vanco Iv Per Pharmacy) VANCOMYCIN PER PHARMACY PER PROTOCOL XX ; Start 09/11/18 at 10:00 Amlodipine Besylate (Norvasc) 10 mg DAILY PO Last administered on 09/16/18 08:28; Admin Dose 10 MG; Start 09/12/18 at 09:00 Lisinopril (Zestril) 20 mg DAILY PO Last administered on 09/16/18 08:28; Admin Dose 20 MG; Start 09/12/18 at 09:00 Vancomycin HCl 1.25 gm/Sodium Chloride 250 ml @ 83.333 mls/ hr Q24H IVPB Last administered on 09/16/18 13:18; Admin Dose 83.333 MLS/HR; Start 09/12/18 at 12:30 IV Flush (NS 3 ml) 3 ml PER PROTOCOL IV ; Start 09/11/18 at 14:30 Acetaminophen (Tylenol Supp) 650 mg Q6H PRN [place] .PAIN 1-3 OR TEMP; Start 09/11/18 at 14:30 Enoxaparin Sodium (Lovenox) 40 mg DAILY SC Last administered on 09/16/18 08:23; Admin Dose 40 MG; Start 09/12/18 at 09:00 Multivitamins/ Minerals (Theragran-M) 1 tab DAILY PO Last administered on 09/16/18 08:27; Admin Dose 1 TAB; Start 09/12/18 at 15:00 Zinc Sulfate (Zinc Sulfate) 220 mg DAILY PO Last administered on 09/16/18 08:27; Admin Dose 220 MG; Start 09/12/18 at 15:00 Ascorbic Acid (Vitamin C) 250 mg DAILY PO Last administered on 09/16/18 08:27; Admin Dose 250 MG; Start 09/12/18 at 15:00 Tobramycin Sulfate/Sodium Chloride (Darnell Inhal) 300 mg BID RESP THERAPY NEB Last administered on 09/16/18 09:22; Admin Dose 300 MG; Start 09/12/18 at 20:00 Prednisone (Prednisone) 40 mg DAILY PO Last administered on 09/16/18 08:27; Admin Dose 40 MG; Start 09/16/18 at 09:00 Ferrous Sulfate (Ferrous Sulfate (Ec)) 325 mg BID PO Last administered on 09/16/18 08:27; Admin Dose 325 MG; Start 09/15/18 at 14:30 Acetaminophen/ Hydrocodone Bitart ([place] (5/325)) 1 tab Q6H PRN PO MODERATE PAIN LEVEL 4-6 Last administered on 09/16/18 08:38; Admin Dose 1 TAB; Start 09/15/18 at 15:00 Hydralazine HCl (Apresoline) 10 mg Q6H PRN IV ELEVATED SYSTOLIC BP; Start 09/16/18 at 00:30 Albuterol/ Ipratropium (Duoneb) 3 ml Q4H RESP THERAPY HHN Last administered on 09/16/18 12:39; Admin Dose 3 ML; Start 09/16/18 at 05:00 Levalbuterol (Xopenex Neb) 1.25 mg Q2H RESP THERAPY PRN HHN SHORTNESS OF BREATH; Start 09/16/18 at 03:30 Clonidine (Catapres) 0.1 mg TID PO Last administered on 09/16/18 12:38; Admin Dose 0.1 MG; Start 09/16/18 at 10:00 PATEL DUTTA NP September 16, 2018 14:13
--- NOTE | 2018-09-16 14:54 | QN ---
Documentation Comment Discharge was canceled as patient's current living situation does not provide any caregiver assistance. At this time, we believe patient would be best served in a senior care. Patient to be seen by physical therapy for official determination for ECF. Case management and social service to follow-up on disposition. MALICK CABA NP September 16, 2018 14:54
[2018-09-16] MEDS: AL HYDROX/MG HYDROX/SIMETH 30 ML CUP PO PRN (20:17)
[2018-09-16] MEDS: FAMOTIDINE 20 MG INJ IV SCH (20:20)
[2018-09-17] MEDS: ALBUTEROL/IPRATROPIUM (NEB) 3 ML AMP HHN SCH ×5 (01:30→17:25)
[2018-09-17 02:20] VITALS: BP 124/71; PULSE 82; RESP 20
[2018-09-17] MEDS: AL HYDROX/MG HYDROX/SIMETH 30 ML CUP PO PRN (06:10)
[2018-09-17] MEDS: HYDROCODONE/APAP (5/325) TAB PO PRN ×2 (06:10→11:51)
[2018-09-17] MEDS: PIPER-TAZO 3.375 GM IV (PMX) 100 ML IVPB SCH ×3 (06:11→17:12)
[2018-09-17 08:00] VITALS: BP 127/61; PULSE 71; RESP 16
[2018-09-17] MEDS: TOBRAMYCIN/0.25NS 300 MG/5 ML INHAL NEB SCH (08:54)
[2018-09-17] MEDS: ENOXAPARIN 40 MG/0.4 ML SYG SC SCH (09:23)
--- NOTE | 2018-09-17 09:23 | PN ---
Date/Time of Note Date/Time of Note DATE: 09/17/18 TIME: 09:21 Assessment/Plan VTE Prophylaxis Risk score (from Ns)>0 risk: 6 SCD applied (from Ns): Yes Pharmacological prophylaxis: LMWH Lines/Catheters IV Catheter Type (from [facility] Mid Line Urinary Cath still in place: No Assessment/Plan Hospital Course SUBJECTIVE: no acute distress OBJECTIVE: Vital signs-see below PHYSICAL EXAM: Constitutional: chronically ill looking male with trach to vent. HEENT: Head atraumatic and normocephalic. Eyes: Extraocular muscles intact. Anicteric sclerae. Pupils equal bilaterally, reactive to light. NECK: Supple without lymph node. CHEST:+Mild wheezing RUL. Diminished bibasilar HEART: S1, S2. Regular rate and rhythm. ABDOMEN: Soft/non tender with no rebound tenderness. Bowel sounds were present. EXTREMITIES: No cyanosis, clubbing or edema. NEUROLOGIC: Alert and oriented x1. No focal deficit. No sensory deficit. PSYCHOSOCIAL: mostly nonverbal INTEGUMENTARY: No open wounds. ASSESSMENT AND PLAN:67 yo M w/cystic lung dx,chronic resp fx w/Trach,recent HAP/Sepsis here from SNF for SOB/Cough Acute on chronic respiratory failure -now stable -Pulmonary toileting -Aspiration precaution Healthcare acquired pneumonia -Clinically improved. Continue antimicrobials per ID recommendations. -breathing treatments History of cystic lung disease, with chronic bloody cough -Stable -continue neb treatments -Pulm on board History of COPD -Stable. Anemia -Stable H&H. -Oral iron Dysphagia -on pureed/nectar thick diet -aspiration precaution VT prophylaxis: Lovenox PUD prophylaxis: Pepcid DISPO:.DC planning to ECF Patient was seen in collaboration with Dr. Thomas. Result Diagram: 09/17/1831 09/17/18 0531 Results 24hrs Laboratory Tests Test 09/16/18 12:35 09/17/18 05:31 Bedside Glucose 178 White Blood Count 8.8 # Red Blood Count 4.24 L Hemoglobin 10.2 L Hematocrit 32.4 L Mean Corpuscular Volume 76.4 L Mean Corpuscular Hemoglobin 24.1 L Mean Corpuscular Hemoglobin Concent 31.5 L Red Cell Distribution Width 20.7 H Platelet Count 253 Mean Platelet Volume 10.6 H Immature Granulocytes % 0.300 Neutrophils % 69.8 Lymphocytes % 8.3 L Monocytes % 20.7 H Eosinophils % 0.9 Basophils % 0.0 Nucleated Red Blood Cells % 0.0 Immature Granulocytes # 0.030 Neutrophils # 6.1 Lymphocytes # 0.7 L Monocytes # 1.8 H Eosinophils # 0.1 Basophils # 0.0 Nucleated Red Blood Cells # 0.0 Sodium Level 137 Potassium Level 4.4 Chloride Level 101 Carbon Dioxide Level 30 Anion Gap 6 Blood Urea Nitrogen 21 H Creatinine 1.00 Est Glomerular Filtrat Rate mL/min > 60 Glucose Level 80 # Calcium Level 9.0 Exam/Review of Systems Exam Vitals Vital Signs Date Temp Pulse Resp B/P (MAP) Pulse Ox O2 O2 Flow FiO2 Time Delivery Rate 09/17/18 98.2 71 16 127/61 100 Trach 08:00 (83) Collar 09/17/18 5.0 28 05:17 Intake and Output 09/16/18 09/16/18 09/17/18 1515:00 23:00 07:00 IntakeIntake Total 700 ml 600 ml 200 ml OutputOutput Total 600 ml 600 ml 600 ml BalanceBalance 100 ml 0 ml -400 ml Results Results 24hrs Laboratory Tests Test 09/16/18 12:35 09/17/18 05:31 Bedside Glucose 178 White Blood Count 8.8 # Red Blood Count 4.24 L Hemoglobin 10.2 L Hematocrit 32.4 L Mean Corpuscular Volume 76.4 L Mean Corpuscular Hemoglobin 24.1 L Mean Corpuscular Hemoglobin Concent 31.5 L Red Cell Distribution Width 20.7 H Platelet Count 253 Mean Platelet Volume 10.6 H Immature Granulocytes % 0.300 Neutrophils % 69.8 Lymphocytes % 8.3 L Monocytes % 20.7 H Eosinophils % 0.9 Basophils % 0.0 Nucleated Red Blood Cells % 0.0 Immature Granulocytes # 0.030 Neutrophils # 6.1 Lymphocytes # 0.7 L Monocytes # 1.8 H Eosinophils # 0.1 Basophils # 0.0 Nucleated Red Blood Cells # 0.0 Sodium Level 137 Potassium Level 4.4 Chloride Level 101 Carbon Dioxide Level 30 Anion Gap 6 Blood Urea Nitrogen 21 H Creatinine 1.00 Est Glomerular Filtrat Rate mL/min > 60 Glucose Level 80 # Calcium Level 9.0 Medications Medication Current Medications Piperacillin Sod/ Tazobactam Sod 100 ml @ 200 mls/hr Q6 IVPB Last administered on 5/29/19at 06:11; Admin Dose 200 MLS/HR; Start 09/11/18 at 12:00 Vancomycin HCl (Vanco Iv Per Pharmacy) VANCOMYCIN PER PHARMACY PER PROTOCOL XX ; Start 09/11/18 at 10:00 Amlodipine Besylate (Norvasc) 10 mg DAILY PO Last administered on 09/16/18 08:28; Admin Dose 10 MG; Start 09/12/18 at 09:00 Lisinopril (Zestril) 20 mg DAILY PO Last administered on 09/16/18 08:28; Admin Dose 20 MG; Start 09/12/18 at 09:00 Vancomycin HCl 1.25 gm/Sodium Chloride 250 ml @ 83.333 mls/ hr Q24H IVPB Last administered on 09/16/18 13:18; Admin Dose 83.333 MLS/HR; Start 09/12/18 at 12:30 IV Flush (NS 3 ml) 3 ml PER PROTOCOL IV ; Start 09/11/18 at 14:30 Acetaminophen (Tylenol Supp) 650 mg Q6H PRN [place] .PAIN 1-3 OR TEMP; Start 09/11/18 at 14:30 Enoxaparin Sodium (Lovenox) 40 mg DAILY SC Last administered on 09/16/18 08:23; Admin Dose 40 MG; Start 09/12/18 at 09:00 Multivitamins/ Minerals (Theragran-M) 1 tab DAILY PO Last administered on 09/16/18 08:27; Admin Dose 1 TAB; Start 09/12/18 at 15:00 Zinc Sulfate (Zinc Sulfate) 220 mg DAILY PO Last administered on 09/16/18 08:27; Admin Dose 220 MG; Start 09/12/18 at 15:00 Ascorbic Acid (Vitamin C) 250 mg DAILY PO Last administered on 09/16/18 08:27; Admin Dose 250 MG; Start 09/12/18 at 15:00 Tobramycin Sulfate/Sodium Chloride (Darnell Inhal) 300 mg BID RESP THERAPY NEB Last administered on 09/17/18 08:54; Admin Dose 300 MG; Start 09/12/18 at 20:00 Prednisone (Prednisone) 40 mg DAILY PO Last administered on 09/16/18 08:27; Admin Dose 40 MG; Start 09/16/18 at 09:00 Ferrous Sulfate (Ferrous Sulfate (Ec)) 325 mg BID PO Last administered on 09/16/18 20:18; Admin Dose 325 MG; Start 09/15/18 at 14:30 Acetaminophen/ Hydrocodone Bitart ([place] (5/325)) 1 tab Q6H PRN PO MODERATE PAIN LEVEL 4-6 Last administered on 09/17/18 06:10; Admin Dose 1 TAB; Start 09/15/18 at 15:00 Hydralazine HCl (Apresoline) 10 mg Q6H PRN IV ELEVATED SYSTOLIC BP; Start 09/16/18 at 00:30 Albuterol/ Ipratropium (Duoneb) 3 ml Q4H RESP THERAPY HHN Last administered on 09/17/18 08:54; Admin Dose 3 ML; Start 09/16/18 at 05:00 Levalbuterol (Xopenex Neb) 1.25 mg Q2H RESP THERAPY PRN HHN SHORTNESS OF BREATH; Start 09/16/18 at 03:30 Clonidine (Catapres) 0.1 mg TID PO Last administered on 09/16/18 20:20; Admin Dose 0.1 MG; Start 09/16/18 at 10:00 Al Hydrox/Mg Hydrox/Simethicone (Mag-Al Plus) 30 ml Q6H PRN PO GASTROINTESTINAL UPSET Last administered on 09/17/18 06:10; Admin Dose 30 ML; Start 09/16/18 at 20:00 Famotidine (Pepcid Iv) 20 mg BID IV Last administered on 09/16/18 20:20; Admin Dose 20 MG; Start 09/16/18 at 21:00 MALICK CABA NP September 17, 2018 09:23
[2018-09-17] MEDS: ZINC SULFATE 220 MG CAP PO SCH (09:24)
[2018-09-17] MEDS: FAMOTIDINE 20 MG INJ IV SCH (09:24)
[2018-09-17] MEDS: ASCORBIC ACID 250 MG TAB PO SCH (09:25)
[2018-09-17] MEDS: MULTIVITAMINS/MINERALS TAB PO SCH (09:25)
[2018-09-17] MEDS: predniSONE 20 MG TAB PO SCH (09:25)
[2018-09-17] MEDS: AMLODIPINE 10 MG TAB PO SCH (09:27)
[2018-09-17] MEDS: FERROUS SULFATE (EC) 325 MG TAB PO SCH (09:27)
[2018-09-17] MEDS: LISINOPRIL 20 MG TAB PO SCH (09:27)
[2018-09-17] MEDS: BALSAM PERU/CASTOR OIL 60 GM TUBE TOP SCH (09:28)
--- NOTE | 2018-09-17 09:32 | CONS ---
Assessment/Plan Assessment/Plan Assessment/Plan (Daily) Assessment and recommendations; 1. Patient admitted with shortness of breath which was transient with interval resolution. 2. Underlying severe COPD with bullous emphysema with history of recurrent hemoptysis, patient however has remained fairly stable over the last few months without any further recurrence of hemoptysis. 3. Coagula is negative staph aureus bacteremia possibly contaminant. Recent blood culture from is growing bacillus. Possibly contaminant as well. 4. Prior history of tracheostomy maintained on trach collar. Consider discharge. Agree with oral ciprofloxacin. Consultation Date/Type/Reason Admit Date/Time September 11, 2018 at 07:55 Initial Consult Date Type of Consult Pulmonary Date/Time of Note DATE: 09/17/18 TIME: 09:30 24 HR Interval Summary Free Text/Dictation Patient's condition is stable. Wants to go home. Denies any shortness of breath, coughing, sputum production or any hemoptysis. Denies any dysphasia. General exam; elderly male, awake alert, currently no distress. Exam/Review of Systems Exam Vitals Vital Signs Date Temp Pulse Resp B/P (MAP) Pulse Ox O2 O2 Flow FiO2 Time Delivery Rate 09/17/18 98.2 71 16 127/61 100 Trach 08:00 (83) Collar 09/17/18 5.0 28 05:17 Intake and Output 09/16/18 09/16/18 09/17/18 1414:59 22:59 06:59 IntakeIntake Total 700 ml 600 ml 200 ml OutputOutput Total 600 ml 600 ml 600 ml BalanceBalance 100 ml 0 ml -400 ml Exam H EENT exam; supple neck, no JVD. No lymphadenopathy. Midline trachea. No thyromegaly. Tracheostomy placed. Patient is edentulous. Chest exam; diminished but clear breath sounds. S1-S2 audible, no murmurs. Regular rhythm. Abdomen exam; soft, nondistended. Nontender. Bowel sounds audible. There is a well-healed epigastric scar. Extremity exam; no peripheral edema clubbing. RISK AND INSURANCE CONSULTANT exam; no focal deficit. Results Result Diagram: 09/17/18 0531 09/17/18 0531 Results 24hrs Laboratory Tests Test 09/16/18 12:35 09/17/18 05:31 Bedside Glucose 178 White Blood Count 8.8 # Red Blood Count 4.24 L Hemoglobin 10.2 L Hematocrit 32.4 L Mean Corpuscular Volume 76.4 L Mean Corpuscular Hemoglobin 24.1 L Mean Corpuscular Hemoglobin Concent 31.5 L Red Cell Distribution Width 20.7 H Platelet Count 253 Mean Platelet Volume 10.6 H Immature Granulocytes % 0.300 Neutrophils % 69.8 Lymphocytes % 8.3 L Monocytes % 20.7 H Eosinophils % 0.9 Basophils % 0.0 Nucleated Red Blood Cells % 0.0 Immature Granulocytes # 0.030 Neutrophils # 6.1 Lymphocytes # 0.7 L Monocytes # 1.8 H Eosinophils # 0.1 Basophils # 0.0 Nucleated Red Blood Cells # 0.0 Sodium Level 137 Potassium Level 4.4 Chloride Level 101 Carbon Dioxide Level 30 Anion Gap 6 Blood Urea Nitrogen 21 H Creatinine 1.00 Est Glomerular Filtrat Rate mL/min > 60 Glucose Level 80 # Calcium Level 9.0 Medications Medication Current Medications Piperacillin Sod/ Tazobactam Sod 100 ml @ 200 mls/hr Q6 IVPB Last administered on 09/17/18at 06:11; Admin Dose 200 MLS/HR; Start 09/11/18 at 12:00 Vancomycin HCl (Vanco Iv Per Pharmacy) VANCOMYCIN PER PHARMACY PER PROTOCOL XX ; Start 09/11/18 at 10:00 Amlodipine Besylate (Norvasc) 10 mg DAILY PO Last administered on 09/17/18 09:27; Admin Dose 10 MG; Start 09/12/18 at 09:00 Lisinopril (Zestril) 20 mg DAILY PO Last administered on 09/17/18 09:27; Admin Dose 20 MG; Start 09/12/18 at 09:00 Vancomycin HCl 1.25 gm/Sodium Chloride 250 ml @ 83.333 mls/ hr Q24H IVPB Last administered on 09/16/18 13:18; Admin Dose 83.333 MLS/HR; Start 09/12/18 at 12:30 IV Flush (NS 3 ml) 3 ml PER PROTOCOL IV ; Start 09/11/18 at 14:30 Acetaminophen (Tylenol Supp) 650 mg Q6H PRN [place] .PAIN 1-3 OR TEMP; Start 09/11/18 at 14:30 Enoxaparin Sodium (Lovenox) 40 mg DAILY SC Last administered on 09/17/18at 09:23; Admin Dose 40 MG; Start 09/12/18 at 09:00 Multivitamins/ Minerals (Theragran-M) 1 tab DAILY PO Last administered on 09/17/18 09:25; Admin Dose 1 TAB; Start 09/12/18 at 15:00 Zinc Sulfate (Zinc Sulfate) 220 mg DAILY PO Last administered on 09/17/18 09:24; Admin Dose 220 MG; Start 09/12/18 at 15:00 Ascorbic Acid (Vitamin C) 250 mg DAILY PO Last administered on 09/17/18 09:25; Admin Dose 250 MG; Start 09/12/18 at 15:00 Tobramycin Sulfate/Sodium Chloride (Darnell Inhal) 300 mg BID RESP THERAPY NEB Last administered on 09/17/18 08:54; Admin Dose 300 MG; Start 09/12/18 at 20:00 Prednisone (Prednisone) 40 mg DAILY PO Last administered on 09/17/18 09:25; Admin Dose 40 MG; Start 09/16/18 at 09:00 Ferrous Sulfate (Ferrous Sulfate (Ec)) 325 mg BID PO Last administered on 09/17/18 09:27; Admin Dose 325 MG; Start 09/15/18 at 14:30 Acetaminophen/ Hydrocodone Bitart ([place] (5/325)) 1 tab Q6H PRN PO MODERATE PAIN LEVEL 4-6 Last administered on 09/17/18 06:10; Admin Dose 1 TAB; Start 09/15/18 at 15:00 Hydralazine HCl (Apresoline) 10 mg Q6H PRN IV ELEVATED SYSTOLIC BP; Start 09/16/18 at 00:30 Albuterol/ Ipratropium (Duoneb) 3 ml Q4H RESP THERAPY HHN Last administered on 09/17/18 08:54; Admin Dose 3 ML; Start 09/16/18 at 05:00 Levalbuterol (Xopenex Neb) 1.25 mg Q2H RESP THERAPY PRN HHN SHORTNESS OF BREATH; Start 09/16/18 at 03:30 Clonidine (Catapres) 0.1 mg TID PO Last administered on 09/17/18 09:25; Admin Dose 0.1 MG; Start 09/16/18 at 10:00 Al Hydrox/Mg Hydrox/Simethicone (Mag-Al Plus) 30 ml Q6H PRN PO GASTROINTESTINAL UPSET Last administered on 5/29/19at 06:10; Admin Dose 30 ML; Start 09/16/18 at 20:00 Famotidine (Pepcid Iv) 20 mg BID IV Last administered on 09/17/18at 09:24; Admin Dose 20 MG; Start 09/16/18 at 21:00 CRISTINA MORRIS September 17, 2018 09:32
--- NOTE | 2018-09-17 12:46 | CONS ---
Assessment/Plan Assessment/Plan Hospital Course (Demo Recall) No acute events. Sleeping, looks comfortable, no fevers overnight Microbiology: Blood culture grew coag negative staph species and bacillus species Antimicrobials: Tobramycin inhalation, vancomycin Zosyn, day #7 PHYSICAL EXAMINATION: GENERAL: This is a chronically ill-appearing, cachectic, elderly - [place] man, who is alert, in no distress. HEENT: Head atraumatic, normocephalic. Sclerae anicteric. Buccal mucosa dry. NECK: Supple. Tracheostomy present. CHEST: Rise symmetrical. Breath sounds diminished to bases with scattered rhonchi. HEART: S1, S2. ABDOMEN: Soft, bowel sounds present. EXTREMITIES: Without cyanosis. Assessment: 1. Acute on chronic hypoxemic respiratory failure 2. Bullous emphysema with acute bronchitis and possible aspiration pneumonitis 3. Coag negative staph bacteremia consistent with contaminant 4. Cachexia Plan: Remains stable, okay discharge off antibiotics Consultation Date/Type/Reason Admit Date/Time September 11, 2018 at 07:55 Initial Consult Date Type of Consult id Date/Time of Note DATE: 09/17/18 TIME: 12:44 Exam/Review of Systems Exam Vitals Vital Signs Date Temp Pulse Resp B/P (MAP) Pulse Ox O2 O2 Flow FiO2 Time Delivery Rate 09/17/18 5.0 28 09:07 09/17/18 80 18 98 Aerosol 09:07 T Tube 09/17/18 98.2 127/61 08:00 (83) Intake and Output 09/16/18 09/16/18 09/17/18 1515:00 23:00 07:00 IntakeIntake Total 700 ml 600 ml 200 ml OutputOutput Total 600 ml 600 ml 600 ml BalanceBalance 100 ml 0 ml -400 ml Results Result Diagram: 09/17/18 0531 09/17/18 0531 Results 24hrs Laboratory Tests Test 09/17/18 05:31 White Blood Count 8.8 # Red Blood Count 4.24 L Hemoglobin 10.2 L Hematocrit 32.4 L Mean Corpuscular Volume 76.4 L Mean Corpuscular Hemoglobin 24.1 L Mean Corpuscular Hemoglobin Concent 31.5 L Red Cell Distribution Width 20.7 H Platelet Count 253 Mean Platelet Volume 10.6 H Immature Granulocytes % 0.300 Neutrophils % 69.8 Lymphocytes % 8.3 L Monocytes % 20.7 H Eosinophils % 0.9 Basophils % 0.0 Nucleated Red Blood Cells % 0.0 Immature Granulocytes # 0.030 Neutrophils # 6.1 Lymphocytes # 0.7 L Monocytes # 1.8 H Eosinophils # 0.1 Basophils # 0.0 Nucleated Red Blood Cells # 0.0 Sodium Level 137 Potassium Level 4.4 Chloride Level 101 Carbon Dioxide Level 30 Anion Gap 6 Blood Urea Nitrogen 21 H Creatinine 1.00 Est Glomerular Filtrat Rate mL/min > 60 Glucose Level 80 # Calcium Level 9.0 Medications Medication Current Medications Piperacillin Sod/ Tazobactam Sod 100 ml @ 200 mls/hr Q6 IVPB Last administered on 09/17/18 11:52; Admin Dose 200 MLS/HR; Start 09/11/18 at 12:00 Vancomycin HCl (Vanco Iv Per Pharmacy) VANCOMYCIN PER PHARMACY PER PROTOCOL XX ; Start 09/11/18 at 10:00 Amlodipine Besylate (Norvasc) 10 mg DAILY PO Last administered on 09/17/18 09:27; Admin Dose 10 MG; Start 09/12/18 at 09:00 Lisinopril (Zestril) 20 mg DAILY PO Last administered on 09/17/18 09:27; Admin Dose 20 MG; Start 09/12/18 at 09:00 Vancomycin HCl 1.25 gm/Sodium Chloride 250 ml @ 83.333 mls/ hr Q24H IVPB Last administered on 09/16/18 13:18; Admin Dose 83.333 MLS/HR; Start 09/12/18 at 12:30 IV Flush (NS 3 ml) 3 ml PER PROTOCOL IV ; Start 09/11/18 at 14:30 Acetaminophen (Tylenol Supp) 650 mg Q6H PRN [place] .PAIN 1-3 OR TEMP; Start 09/11/18 at 14:30 Enoxaparin Sodium (Lovenox) 40 mg DAILY SC Last administered on 09/17/18 09:23; Admin Dose 40 MG; Start 09/12/18 at 09:00 Multivitamins/ Minerals (Theragran-M) 1 tab DAILY PO Last administered on 09/17/18 09:25; Admin Dose 1 TAB; Start 09/12/18 at 15:00 Zinc Sulfate (Zinc Sulfate) 220 mg DAILY PO Last administered on 09/17/18 09:24; Admin Dose 220 MG; Start 09/12/18 at 15:00 Ascorbic Acid (Vitamin C) 250 mg DAILY PO Last administered on 09/17/18 09:25; Admin Dose 250 MG; Start 09/12/18 at 15:00 Tobramycin Sulfate/Sodium Chloride (Darnell Inhal) 300 mg BID RESP THERAPY NEB Last administered on 09/17/18 08:54; Admin Dose 300 MG; Start 09/12/18 at 20:00 Prednisone (Prednisone) 40 mg DAILY PO Last administered on 09/17/18 09:25; Admin Dose 40 MG; Start 09/16/18 at 09:00 Ferrous Sulfate (Ferrous Sulfate (Ec)) 325 mg BID PO Last administered on 09/17/18 09:27; Admin Dose 325 MG; Start 09/15/18 at 14:30 Acetaminophen/ Hydrocodone Bitart ([place] (5/325)) 1 tab Q6H PRN PO MODERATE PAIN LEVEL 4-6 Last administered on 09/17/18 11:51; Admin Dose 1 TAB; Start 09/15/18 at 15:00 Hydralazine HCl (Apresoline) 10 mg Q6H PRN IV ELEVATED SYSTOLIC BP; Start 09/16/18 at 00:30 Albuterol/ Ipratropium (Duoneb) 3 ml Q4H RESP THERAPY HHN Last administered on 09/17/18 08:54; Admin Dose 3 ML; Start 09/16/18 at 05:00 Levalbuterol (Xopenex Neb) 1.25 mg Q2H RESP THERAPY PRN HHN SHORTNESS OF BREATH; Start 09/16/18 at 03:30 Clonidine (Catapres) 0.1 mg TID PO Last administered on 09/17/18 09:25; Admin Dose 0.1 MG; Start 09/16/18 at 10:00 Al Hydrox/Mg Hydrox/Simethicone (Mag-Al Plus) 30 ml Q6H PRN PO GASTROINTESTINAL UPSET Last administered on 09/17/18 06:10; Admin Dose 30 ML; Start 09/16/18 at 20:00 Famotidine (Pepcid Iv) 20 mg BID IV Last administered on 09/17/18 09:24; Admin Dose 20 MG; Start 09/16/18 at 21:00 Miscellaneous Information (*Rx Drug Level Order Reminder*) OSIRIS MCNALLY AT 113 0 1130 ONCE XX ; Start 09/18/18 at 11:30; Stop 09/18/18 at 11:31 PATEL DUTTA NP September 17, 2018 12:46
[2018-09-17] MEDS: VANCOMYCIN HCL 1.25 GM in SOD CHLORIDE 0.9% 250 ML IVPB SCH (13:57)
[2018-09-17 14:00] VITALS: BP 108/61; PULSE 86; RESP 20
--- NOTE | 2018-09-17 14:39 | DS ---
Date/Time of Note Date/Time of Note DATE: 09/17/18 TIME: 14:36 Discharge Summary Admission/Discharge Info Admit Date/Time September 11, 2018 at 07:55 Discharge Date/Time Discharge Diagnosis Acute on chronic respiratory failure W/Trach.stable Healthcare acquired pneumonia History of cystic lung disease, with chronic bloody cough History of COPD Anemia Dysphagia Patient Condition: Stable Consults ,pulmonary Procedures 09 13 2018: Chest x-ray. Hx of Present Illness This is a 67-year-old male with a history of cystic/emphysematous lung disease, chronic tracheostomy, chronic respiratory failure, transferred from intermediate for worsening shortness of breath. Apparently, patient was discharged from [facility] in July 2018 and was treated for healthcare associated pneumonia, acute respiratory failure associated with pneumonia and cystic lung disease. Patient also was noted with septic shock with that admission. He was treated with antimicrobials and was discharged back to intermediate in stable condition. According to medical records, it is noted that patient's called paramedics as patient was found and shortness of breath with increased respiratory rate and cough for several days. At my encounter with the patient, he is awake. Denies chest pain, palpitation, nausea, vomiting, abdominal pain, loss of consciousness, dizziness, headache, fever, chills, diarrhea or other constitutional symptoms. Labs showed hemoglobin 9.3, hematocrit 31.8, sodium 145. Chest x-ray showed bilateral perihilar/infrahilar patchy densities. Patient was given clindamycin, Zosyn in the emergency room and was admitted for pneumonia work-up. Hospital Course 67 yo M w/cystic lung dx,chronic resp fx w/Trach,recent HAP/Sepsis here from SNF for SOB/Cough.. Patient was noted with acute on chronic respiratory failure for which he required 24-hour mechanical ventilation. Patient was given pulmonary toileting. He was also given a short dose of steroid. Patient was being followed by quality coordinator. He was noted with healthcare acquired pneumonia which is recurrent for which he was also given tobramycin nebulization. Patient was also treated with Zosyn and vancomycin. Patient was noted with blood culture 1 out of 2 with coagulation negative staph, likely contamination. He also had recently species on the other set of blood culture which is more likely skin contaminant. Patient had a midline which was removed as he was not requiring any IV antibiotics on discharge. As per ID, patient needs doxycycline or Bactrim along with Levaquin for 14 more days. Patient was cleared from pulmonary standpoint for outpatient follow-up.Patient was also evaluated by speech team and was recommended pured/nectar thick diet. He will be also provided with a Passy-Avtar valve. Due to debility, we recommended intermediate, for which patient was not receptive and decided to go home back with his daughter who is also preliminary caregiver. Pt already has oxygen available at home. Approximately 60-minute was spent on coordinating the discharge on this patient. Patient was seen in collaboration with Dr. Thomas. Home Meds Active Scripts Zinc Sulfate* (Zinc Sulfate*) 220 Mg Cap, 220 MG PO DAILY for 30 Days, CAP Prov:MALICK CABA V. TENTER FEEDER 09/16/18 Enoxaparin Sodium* (Enoxaparin Sodium*) 40 Mg/0.4 Ml Syringe, 40 MG SC DAILY for 30 Days Prov:MALICK CABA NP 09/16/18 Ferrous Sulfate* (Ferrous Sulfate*) 325 Mg Tabec, 325 MG PO BID, #60 TAB Prov:MALICK CABA NP 09/16/18 Ciprofloxacin Hcl* (Ciprofloxacin Hcl*) 500 Mg Tablet, 500 MG PO BID for 10 Days, #20 TAB Prov:MALICK CABA NP 09/16/18 Multivits,Ca,Minerals/Iron/FA (Thera M Plus Tablet) 1 Each Tablet, 1 TAB PO DAILY for 30 Days, TAB Prov:MALICK CABA NP 09/16/18 Ascorbic Acid (Vitamin C) 250 Mg Tab, 250 MG PO DAILY for 30 Days, TAB Prov:MALICK CABA V. TENTER FEEDER 09/16/18 Prednisone* (Prednisone*) 20 Mg Tab, 40 MG PO DAILY for 3 Days, TAB Prov:MALICK CABA V. TENTER FEEDER 09/16/18 Clonidine Hcl* (Clonidine Hcl*) 0.1 Mg Tab, 0.1 MG GTB TID for 30 Days, TAB Prov:MALICK CABA V. TENTER FEEDER 09/16/18 Lisinopril* (Lisinopril*) 20 Mg Tablet, 20 MG PO DAILY for 30 Days, #30 TAB Prov:FRANKO SAUCEDA MD 08/19/18 Amlodipine Besylate* (Amlodipine Besylate*) 10 Mg Tablet, 10 MG PO DAILY for 30 Days, #30 TAB Prov:FRANKO SAUCEDA MD 08/19/18 Ipratropium-Albuterol (Ipratropium-Albuterol) 0.5-3 Mg/3 Ml Ampul.neb, 3 ML HHN Q6H RESP THERAPY for 30 Days, #120 DOSE Prov:FRANKO SAUCEDA MD 08/19/18 Reported Medications Pantoprazole* (Pantoprazole*) 40 Mg Tablet.dr, 40 MG GTB AC BREAKFAST, TAB 07/17/18 Alprazolam* (Xanax*) 2 Mg Tablet, 2 MG GTB Q8H PRN for ANXIETY, TAB 07/17/18 Hydrocodone/Acetaminophen ([place] 10-325 Tablet) 1 Each Tablet, 1 EACH GTB Q6H PRN for NEEDED, TAB 07/17/18 Discontinued Reported Medications Gabapentin* (Gabapentin*) 800 Mg Tablet, 1 TAB GTB TID 09/11/18 Cephalexin* (Cephalexin*) 500 Mg Capsule, 1 CAP GTB TID 09/11/18 Hydralazine Hcl* (Hydralazine Hcl*) 25 Mg Tab, 25 MG GTB Q8 PRN for NEEDED, #90 TAB 07/17/18 Discontinued Scripts Ferrous Sulfate* (Ferrous Sulfate*) 325 Mg Tabec, 325 MG PO DAILY for 30 Days, #30 TAB Prov:FRANKO SAUCEDA MD 08/19/18 Hydrocodone Bit-Acetaminophen (Hydrocodone Bit-APAP) 5-325MG Tablet, 1 TAB PO Q4H PRN for MODERATE PAIN LEVEL 4-6 for 7 Days, #20 TAB Prov:FRANKO SAUCEDA MD 08/19/18 Gabapentin* (Gabapentin*) 600 Mg Tablet, 600 MG PO TID for 30 Days, #90 TAB Prov:FRANKO SAUCEDA MD 08/19/18 Follow-up Plan DC TO SNF Primary Care Provider Bonita Ahumada MD Pending Labs Laboratory Tests Test 09/17/18 05:31 White Blood Count 8.8 10^3/ul (4.8-10.8) Red Blood Count 4.24 10^6/ul (4.70-6.10) Hemoglobin 10.2 g/dl (14.0-18.0) Hematocrit 32.4 % (42.0-52.0) Mean Corpuscular Volume 76.4 fl (82.0-101.0) Mean Corpuscular Hemoglobin 24.1 pg (29.0-33.0) Mean Corpuscular Hemoglobin Concent 31.5 g/dl (32.0-37.0) Red Cell Distribution Width 20.7 % (11.5-14.5) Platelet Count 253 10^3/UL (140-415) Mean Platelet Volume 10.6 fl (7.4-10.4) Immature Granulocytes % 0.300 % (0.001-0.429) Neutrophils % 69.8 % (39.0-77.0) Lymphocytes % 8.3 % (15.0-51.0) Monocytes % 20.7 % (0.0-11.0) Eosinophils % 0.9 % (0.0-7.0) Basophils % 0.0 % (0.0-2.0) Nucleated Red Blood Cells % 0.0 /100WBC (0.0-0.0) Immature Granulocytes # 0.030 10^3/ul (0.0-0.031) Neutrophils # 6.1 10^3/ul (1.6-7.5) Lymphocytes # 0.7 10^3/ul (0.8-2.9) Monocytes # 1.8 10^3/ul (0.3-0.9) Eosinophils # 0.1 10^3/ul (0.0-0.5) Basophils # 0.0 10^3/ul (0.0-0.1) Nucleated Red Blood Cells # 0.0 10^3/ul (0.0-0.0) Sodium Level 137 mmol/L (135-144) Potassium Level 4.4 mmol/L (3.5-5.1) Chloride Level 101 mmol/L (97-110) Carbon Dioxide Level 30 mmol/L (21-31) Anion Gap 6 (5-13) Blood Urea Nitrogen 21 mg/dl (7-20) Creatinine 1.00 mg/dl (0.61-1.24) Est Glomerular Filtrat Rate mL/min > 60 mL/min (>60) Glucose Level 80 mg/dl (70-220) Calcium Level 9.0 mg/dl (8.4-10.2) MALICK CABA V. TENTER FEEDER September 17, 2018 14:39
== END 2018-09-17 19:22 | DRG 208 ==
LOC: E/R 06:00 → TEL 07:55 → EDBEDREQ 08:21 → PP2 09-16 01:59
PROVIDERS: ADMIT Internal Medicine; ATTEND Internal Medicine
PROC: 5A1935Z Respiratory Ventilation, Less than 24 Consecutive Hours (ICD-10-PCS; principal; 2018-09-11)
DX: J96.20 Acute and chronic respiratory failure, unspecified whether with hypoxia or hypercapnia (principal); J18.9 Pneumonia, unspecified organism; J44.0 Chronic obstructive pulmonary disease with (acute) lower respiratory infection; R04.2 Hemoptysis; R64 Cachexia; Z93.0 Tracheostomy status; E86.0 Dehydration; D64.9 Anemia, unspecified; R13.10 Dysphagia, unspecified; B95.61 Methicillin susceptible Staphylococcus aureus infection as the cause of diseases classified elsewhere; J43.8 Other emphysema; Z68.25 Body mass index [BMI] 25.0-25.9, adult; J20.9 Acute bronchitis, unspecified
CPT/HCPCS: 36415; 36600; 71045; 80048; 80053; 80061; 80202; 82565; 82728; 82803; 82962; 83036; 83540; 83735; 83880; 84100; 84484; 84520; 85025; 87081; 92507; 92522; 92526; 92610; 94002; 94003; 94640; 94664; 96365; 96367; 97162; J1650; J1885; J2543; J2920; J3370; J7030; J7050; J7512

== ENCOUNTER 2018-10-20 00:09 | Inpatient (IN) | payer MEDICARE, OTHER ==
[~2018-10-20] VITALS: Ht 180.3 cm; Wt 68.0 kg
[~2018-10-20 00:09] MED LIST changes: +ASCO250T96 PO; +CIPR500T4 PO; +ENOX40DI2 SC; -GABA-526 PO; -HYDR-3601 PO; -HYDR-3671 GTB; +MULT-843 PO; +PRED20TA PO; +ZINC220C5 PO
--- NOTE | 2018-10-20 00:27 | ERD ---
ER Documentation Chief Complaint Chief Complaint BIBRA 90,from home,dislodged trach,hx R lobectomy,L side face & L body pain HPI 67-year-old man with multiple medical conditions including tracheostomy tube and COPD brought in by EMS for complaints of shortness of breath, wheezing, and possible dislodged tracheostomy tube. Patient has had no hemoptysis, no fevers or chills, no vomiting or diarrhea although HPI was limited as patient is nonverbal was supplemented by reviewing past medical history and speaking to EMS. Patient was transported here without complications. ROS All systems reviewed and are negative except as per history of present illness. Medications Home Meds Active Scripts Zinc Sulfate* (Zinc Sulfate*) 220 Mg Cap, 220 MG PO DAILY for 30 Days, CAP Prov:MALICK CAAB NP 09/16/18 Enoxaparin Sodium* (Enoxaparin Sodium*) 40 Mg/0.4 Ml Syringe, 40 MG SC DAILY for 30 Days Prov:MALICK CABA NP 09/16/18 Ferrous Sulfate* (Ferrous Sulfate*) 325 Mg Tabec, 325 MG PO BID, #60 TAB Prov:MALICK CABA NP 09/16/18 Ciprofloxacin Hcl* (Ciprofloxacin Hcl*) 500 Mg Tablet, 500 MG PO BID for 10 Days, #20 TAB Prov:MALICK CABA NP 09/16/18 Multivits,Ca,Minerals/Iron/FA (Thera M Plus Tablet) 1 Each Tablet, 1 TAB PO DAILY for 30 Days, TAB Prov:MALICK CABA NP 09/16/18 Ascorbic Acid (Vitamin C) 250 Mg Tab, 250 MG PO DAILY for 30 Days, TAB Prov:MALICK CABA NP 09/16/18 Prednisone* (Prednisone*) 20 Mg Tab, 40 MG PO DAILY for 3 Days, TAB Prov:MALICK CABA NP 09/16/18 Clonidine Hcl* (Clonidine Hcl*) 0.1 Mg Tab, 0.1 MG GTB TID for 30 Days, TAB Prov:MALICK CABA NP 09/16/18 Lisinopril* (Lisinopril*) 20 Mg Tablet, 20 MG PO DAILY for 30 Days, #30 TAB Prov:FRANKO SAUCEDA MD 08/19/18 Amlodipine Besylate* (Amlodipine Besylate*) 10 Mg Tablet, 10 MG PO DAILY for 30 Days, #30 TAB Prov:FRANKO SAUCEDA MD 08/19/18 Ipratropium-Albuterol (Ipratropium-Albuterol) 0.5-3 Mg/3 Ml Ampul.neb, 3 ML HHN Q6H RESP THERAPY for 30 Days, #120 DOSE Prov:FRANKO SAUCEDA MD 08/19/18 Reported Medications Pantoprazole* (Pantoprazole*) 40 Mg Tablet.dr, 40 MG GTB AC BREAKFAST, TAB 07/17/18 Alprazolam* (Xanax*) 2 Mg Tablet, 2 MG GTB Q8H PRN for ANXIETY, TAB 07/17/18 Hydrocodone/Acetaminophen ([place] 10-325 Tablet) 1 Each Tablet, 1 EACH GTB Q6H PRN for NEEDED, TAB 07/17/18 Allergies Allergies: Coded Allergies: No Known Drug Allergies (Verified Allergy, Unknown, 07/17/18) PMhx/Soc COPD, chronic respiratory failure, anemia, history of pulmonary cavity lesion, hypertension, tracheostomy Hx Neurological Disorder: No (unable to obtain) Hx Respiratory Disorders: Yes (COPD, respiratory failure) Hx Cardiac Disorders: Yes (HTN) Hx Miscellaneous Medical Probl: Yes (COPD,trach,respiratory failure,HTN,anemia) Hx Alcohol Use: No Hx Substance Use: Yes Hx Tobacco Use: Yes FmHx Family History: No diabetes Physical Exam Vitals Vital Signs Date Temp Pulse Resp B/P (MAP) Pulse Ox O2 O2 Flow FiO2 Time Delivery Rate 10/20/18 Nasal 4 00:38 Cannula 10/20/18 103 16 97 Aerosol 5.0 28 00:35 T Tube 10/20/18 5.0 28 00:35 10/20/18 98.3 105 16 148/71 100 00:17 (96) Physical Exam Const: Elderly, chronically debilitated man, afebrile HEENT: Tracheostomy tube is in place properly and skin around the tube is clean and dry, patient has dry mucous membranes, pink conjunctive a Resp: Poor breath sounds on the right with scattered wheezes, no crackles Cardio: Tachycardic and regular, no murmurs Ext: No cyanosis, or edema, calves symmetrical Neur: Eyes open, patient responsive to painful stimuli, nonverbal, pupils equal round reactive to light Result Diagram: 10/20/18 0056 10/20/18 0056 Results 24 hrs Laboratory Tests Test 10/20/18 00:28 10/20/18 00:56 10/20/18 01:53 Blood Gas Specimen Source Blood arterial Arterial Blood Date Drawn 10/20/2018 12:30:55 AM Arterial Blood pH 7.293 (Temp corrected) Arterial Blood pCO2 56.1 mmhg (Temp correct) Arterial Blood pO2 75.5 mmHG (Temp corrected) Arterial Blood HCO3 26.6 mmol/L Arterial Blood Base Excess -0.5 mmol/L Arterial Blood 92.7 mmHG Oxygen Saturation Ravindra Test ACCEPTAB Arterial Blood Gas Right Radial Puncture Site Arterial 0.1 % Blood Carboxyhemoglobin Arterial Blood Methemoglobin 0.4 % Blood Gas A-a O2 57.9 mmHg Differential Oxyhemoglobin Percent 92.2 % Blood Gas Temperature 37.0 C Blood Gas Modality TRACH COLLAR FiO2 28.0 % Blood Gas Critical Value REGULO TREVIÑO Read Back Blood Gas Notified Whom [place] Blood Gas Notified Time 10/20/2018 12:44:01 AM White Blood Count 8.6 10^3/ul Red Blood Count 3.77 10^6/ul Hemoglobin 9.1 g/dl Hematocrit 31.3 % Mean Corpuscular Volume 83.0 fl Mean Corpuscular Hemoglobin 24.1 pg Mean Corpuscular 29.1 g/dl Hemoglobin Concent Red Cell Distribution Width 21.9 % Platelet Count 239 10^3/UL Mean Platelet Volume 9.5 fl Immature Granulocytes % 0.800 % Neutrophils % 79.5 % Lymphocytes % 11.9 % Monocytes % 6.8 % Eosinophils % 0.5 % Basophils % 0.5 % Nucleated Red Blood Cells % 0.0 /100WBC Immature Granulocytes # 0.070 10^3/ul Neutrophils # 6.8 10^3/ul Lymphocytes # 1.0 10^3/ul Monocytes # 0.6 10^3/ul Eosinophils # 0.0 10^3/ul Basophils # 0.0 10^3/ul Nucleated Red Blood Cells # 0.0 10^3/ul Sodium Level 146 mmol/L Potassium Level 4.3 mmol/L Chloride Level 106 mmol/L Carbon Dioxide Level 30 mmol/L Anion Gap 10 Blood Urea Nitrogen 12 mg/dl Creatinine 0.85 mg/dl Est Glomerular Filtrat > 60 mL/min Rate mL/min Glucose Level 39 mg/dl Calcium Level 8.7 mg/dl Total Bilirubin 0.3 mg/dl Direct Bilirubin 0.00 mg/dl Indirect Bilirubin 0.3 mg/dl Aspartate Amino 196 IU/L Transf (AST/SGOT) Alanine 114 IU/L Aminotransferase (ALT/SGPT) Alkaline Phosphatase 93 IU/L Troponin I < 0.012 ng/ml Total Protein 7.7 g/dl Albumin 3.7 g/dl Globulin 4.00 g/dl Albumin/Globulin Ratio 0.92 Lipase 17 U/L Bedside Glucose 35 mg/dL Current Medications Medications Dose Sig/Jacquelyn Start Time Status Last (Trade) Ordered Route PRN Stop Time Admin Dose Reason Admin Albuterol 5 mg ONCE STAT 10/20/18 DC 10/20/18 (Proventil INH 00:28 10/20/18 00:47 0.5% (Neb)) 00:32 125 mg ONCE STAT 10/20/18 DC 10/20/18 Methylprednis IV 00:28 10/20/18 01:41 olone Sodium 00:32 Succinate (Solu-Medrol) Sodium 1,000 ml @ Q1H STAT 10/20/18 DC 10/20/18 Chloride 1,000 mls/hr IV 00:28 10/20/18 01:41 01:27 Cefepime HCl 50 ml @ ONCE ONCE 10/20/18 DC 10/20/18 100 mls/hr IVPB 01:30 10/20/18 01:41 01:59 Vancomycin 250 ml @ ONCE ONCE 10/20/18 HCl 125 mls/hr IVPB 01:30 10/20/18 03:29 Dextrose 50 ml STK-MED 10/20/18 DC (D50w ONCE .ROUTE 01:48 10/20/18 Syringe) 01:49 Dextrose 50 ml STK-MED 10/20/18 DC (D50w ONCE .ROUTE 01:55 10/20/18 Syringe) 01:56 Dextrose 50 ml ONCE ONCE 10/20/18 UNV (D50w IV 02:00 10/20/18 Syringe) 02:01 Procedures/MDM IV line was established patient was placed on library monitor rhythm strip revealed a narrow complex tachycardia at 110 bpm with upright P and T waves. Patient was afebrile EKG performed, read by me revealed a sinus tachycardia at 110 bpm, normal axis, narrow QRS complex, no concerning ST elevations or depressions noted 1 view chest x-ray performed, read by me reveals a tracheostomy tube in place with right lobectomy and right lower lobe infiltrate, left lung is clear I administered albuterol 10 mg via nebulizer, methylprednisolone 125 mg IV, cefepime 1 g IV, and vancomycin 1 g IV ABG on high flow oxygen revealed a pH of 7.29, PCO2 56, PO2 76 consistent with metabolic and respiratory acidosis CBC was unremarkable her blood sugar was low and I treated him here with dextrose 25 g IV. Mental status did improve. Otherwise electrolytes were within normal limits, liver function tests unremarkable, troponin negative, uri nalysis is also pending and I will follow-up. Patient admitted to telemetry setting. Departure Diagnosis: Primary Impression: Healthcare-associated pneumonia Additional Impressions: COPD (chronic obstructive pulmonary disease) COPD type: COPD with acute exacerbation Qualified Codes: J44.1 - Chronic obstructive pulmonary disease with (acute) exacerbation Acute dehydration Tracheostomy tube present Acute metabolic encephalopathy due to hypoglycemia Condition: RAUL Bernabe MD Oct 20, 2018 00:27
[2018-10-20] MEDS ORDERED: SOD CHLORIDE 0.9% 1,000 ML IV STA (00:28)
[2018-10-20] MEDS ORDERED: ALBUTEROL 0.5% (NEB) 2.5 MG/0.5 ML AMP INH STA (00:28)
[2018-10-20] MEDS ORDERED: METHYLPREDNISOLONE 125 MG INJ IV STA (00:28)
[2018-10-20] MEDS ORDERED: VANCOMYCIN 1 GM (PMX) 250 ML IVPB ONE (01:30)
[2018-10-20] MEDS ORDERED: CEFEPIME 1GM/50 ML (PMX) 50 ML IVPB ONE (01:30)
[2018-10-20] MEDS ORDERED: DEXTROSE 50% 50 ML SYRINGE ONE ×2 (01:48→01:55)
[2018-10-20] MEDS ORDERED: DEXTROSE 50% 50 ML SYRINGE IV ONE ×2 (02:00→02:30)
[2018-10-20] MEDS ORDERED: ACETAMINOPHEN 650 MG SUPP PR PRN (02:30)
[2018-10-20] MEDS ORDERED: NACL 0.9% 3 ML SYG IV SCH (02:30)
[2018-10-20] MEDS: DEXTROSE 5%-0.45% NACL 1,000 ML IV SCH ×2 (02:30→16:05)
[2018-10-20] MEDS ORDERED: GLUCAGON 1 MG INJ IM PRN (03:00)
[2018-10-20] MEDS ORDERED: GLUCOSE GEL 15 GRAM TUBE BUCCAL PRN (03:00)
[2018-10-20] MEDS ORDERED: DEXTROSE 50% 50 ML SYRINGE IV PRN ×2 (03:00)
[2018-10-20] MEDS ORDERED: GLUCOSE GEL 15 GRAM TUBE PO PRN ×2 (03:00)
--- NOTE | 2018-10-20 04:07 | HP ---
Date/Time of Note Date/Time of Note DATE: 10/20/18 TIME: 04:03 Assessment/Plan VTE Prophylaxis Pharmacological prophylaxis: LMWH Lines/Catheters IV Catheter Type (from Nrs): Saline Lock Assessment/Plan Hospital Course This is a 67-year male being admitted to the telemetry floor for: #1 Acute on chronic COPD exacerbation: Patient is trach collar. His ABG does look to be hypercapnic and hypoxic. Currently he is receiving breathing treatments. We will repeat ABG in the a.m. Scheduled nebulizers and IV steroids. I will also give him a course of Levaquin given his dyspnea wheezing and cough. Tracheostomy care, pulmonary consultation #2 mild dehydration: Speech therapy evaluation, IV fluid hydration with normal saline. #3 history of cystic lung disease: Patient apparently does have a history of chronic bloody cough. At the current time it is not bloody. Pulmonary consultation. Further treatment as per 1. #4 chronic anemia: H&H stable #5 hypertension: Continue patient's home medication #6 transaminitis: We will check right upper quadrant ultrasound, Check ethanol level, urine drug screen, repeat LFTs in the a.m. DVT GI prophylaxis: Lovenox, H2 kevon Further treatment strategy will be implemented as per the clinical course Result Diagram: 10/20/18 0056 10/20/18 0056 Results 24hrs Laboratory Tests Test 10/20/18 00:28 10/20/18 00:56 10/20/18 01:53 10/20/18 02:31 Blood Gas Specimen Blood arterial Source Arterial Blood 10/20/2018 12:30:55 Date Drawn AM Arterial Blood pH 7.293 *L (Temp corrected) Arterial Blood 56.1 H pCO2 (Temp correct) Arterial Blood pO2 75.5 L (Temp corrected) Arterial Blood 26.6 H HCO3 Arterial Blood -0.5 Base Excess Arterial Blood 92.7 L Oxygen Saturation Ravindra Test ACCEPTAB Arterial Blood Gas Right Radial Puncture Site Arterial 0.1 Blood Carboxyhemog lobin Arterial Blood 0.4 Methemoglobin Blood Gas A-a O2 57.9 H Differential Oxyhemoglobin 92.2 L Percent Blood Gas 37.0 Temperature Blood Gas Modality TRACH COLLAR FiO2 28.0 Blood Gas Critical REGULO TREVIÑO Value Read Back Blood Gas Notified NOE Kc Blood Gas Notified 10/20/2018 12:44:01 Time AM White Blood Count 8.6 Red Blood Count 3.77 L Hemoglobin 9.1 L Hematocrit 31.3 L Mean Corpuscular 83.0 Volume Mean Corpuscular 24.1 L Hemoglobin Mean Corpuscular 29.1 L Hemoglobin Concent Red Cell 21.9 H Distribution Width Platelet Count 239 Mean Platelet 9.5 Volume Immature 0.800 H Granulocytes % Neutrophils % 79.5 H Lymphocytes % 11.9 L Monocytes % 6.8 Eosinophils % 0.5 Basophils % 0.5 Nucleated Red 0.0 Blood Cells % Immature 0.070 H Granulocytes # Neutrophils # 6.8 Lymphocytes # 1.0 Monocytes # 0.6 Eosinophils # 0.0 Basophils # 0.0 Nucleated Red 0.0 Blood Cells # Sodium Level 146 H Potassium Level 4.3 Chloride Level 106 Carbon Dioxide 30 Level Anion Gap 10 Blood Urea 12 Nitrogen Creatinine 0.85 Est Glomerular > 60 Filtrat Rate mL/min Glucose Level 39 *L Calcium Level 8.7 Total Bilirubin 0.3 Direct Bilirubin 0.00 Indirect Bilirubin 0.3 Aspartate Amino 196 H Transf (AST/SGOT) Alanine 114 H Aminotransferase ( ALT/SGPT) Alkaline 93 Phosphatase Troponin I < 0.012 Total Protein 7.7 Albumin 3.7 Globulin 4.00 H Albumin/Globulin 0.92 Ratio Lipase 17 L Bedside Glucose 35 *L 111 HPI/ROS Admit Date/Time Admit Date/Time Hx of Present Illness Chief complaint: Shortness of breath, wheezing trach dislodged This is a 67-year-old male with a past medical history ofhistory of cystic/emphysematous lung disease, chronic tracheostomy, chronic respiratory failure, who was brought in via EMS from home with complaints of shortness of breath wheezing and possible dislodging of his trach. Patient did not have his trach dislodged according to the ER doctor. His his trach collar though is very dirty. Patient does appear to have wheezing on examination and his ABG did show pH of 7.29/CO2 56/PO2 75/bicarb 26. He is on chronic oxygen at home via trach 4 LPM. There is no chest pain. Allergies: NKDA Medications: Xanax 2 mg via G-tube every 8 hours Amlodipine 10 mg p.o. daily Ascorbic acid to 50 mg p.o. daily Clonidine 0.1 tab 3 times daily Lovenox 40 mg subcu daily Prosperity [id number] p.o. every 6 hours as needed DuoNeb every 6 hours as needed V multivitamin 1 mg p.o. daily Zinc sulfate 220 mg p.o. daily Ciprofloxacin 5 mg twice daily Ferrous sulfate 325 mg p.o. twice daily Lisinopril 20 mg p.o. daily Pantoprazole 40 mg daily breakfast ROS Subjective hx not possible: other (Trach collar) PMH/Family/Social Past Medical History history of cystic/emphysematous lung disease, chronic tracheostomy, chronic respiratory failure, Medications Current Medications Alprazolam (Xanax) 2 mg Q8H PRN GTB ANXIETY; Start 10/20/18 at 02:30 Amlodipine Besylate (Norvasc) 10 mg DAILY PO ; Start 10/20/18 at 09:00 Ascorbic Acid (Vitamin C) 250 mg DAILY PO ; Start 10/20/18 at 09:00 Clonidine (Catapres) 0.1 mg TID GTB ; Start 10/20/18 at 09:00 Enoxaparin Sodium (Lovenox) 40 mg DAILY SC ; Start 10/20/18 at 09:00 Acetaminophen/ Hydrocodone Bitart ([place] (10/325)) 1 tab Q6H PRN GTB MODERATE PAIN 4-6; Start 10/20/18 at 02:30 Albuterol/ Ipratropium (Duoneb) 3 ml Q6H RESP THERAPY HHN ; Start 10/20/18 at 08:00 Multivitamins/ Minerals (Theragran-M) 1 tab DAILY PO ; Start 10/20/18 at 09:00 Zinc Sulfate (Zinc Sulfate) 220 mg DAILY PO ; Start 10/20/18 at 09:00 Dextrose/Sodium Chloride 1,000 ml @ 70 mls/hr [id number] IV ; Start 10/20/18 at 02:30 IV Flush (NS 3 ml) 3 ml PER PROTOCOL IV ; Start 10/20/18 at 02:30 Acetaminophen (Tylenol Supp) 650 mg Q6H PRN [place] .PAIN 1-3 OR TEMP; Start 10/20/18 at 02:30 Morphine Sulfate (morphine) 2 mg Q4H PRN IV .PAIN 7-10; Start 10/20/18 at 02:30 Famotidine (Pepcid Iv) 20 mg Q12 IV ; Start 10/20/18 at 09:00 Methylprednisolone Sodium Succinate (Solu-Medrol) 30 mg Q8 IV ; Start 10/20/18 at 06:00 Albuterol/ Ipratropium (Duoneb) 3 ml Q4H RESP THERAPY HHN ; Start 10/20/18 at 05:00 Diagnostic Test (Pha) (Accu-Chek) 1 ea 02 XX ; Start 10/21/18 at 02:00 Insulin Aspart (Novolog Insulin Pen) NOVOLOG *MILD* ALGORI... Q4 SC ; Start 10/20/18 at 05:00 Miscellaneous Information 1 ea NOTE XX ; Start 10/20/18 at 03:00 Glucose (Glutose) 15 gm Q15M PRN PO DECREASED GLUCOSE; Start 10/20/18 at 03:00 Glucose (Glutose) 22.5 gm Q15M PRN PO DECREASED GLUCOSE; Start 10/20/18 at 03:00 Dextrose (D50w Syringe) 25 ml Q15M PRN IV DECREASED GLUCOSE; Start 10/20/18 at 03:00 Dextrose (D50w Syringe) 50 ml Q15M PRN IV DECREASED GLUCOSE; Start 10/20/18 at 03:00 Glucagon (Glucagen) 1 mg Q15M PRN IM DECREASED GLUCOSE; Start 10/20/18 at 03:00 Glucose (Glutose) 15 gm Q15M PRN BUCCAL DECREASED GLUCOSE; Start 10/20/18 at 03:00 Coded Allergies: No Known Drug Allergies (Verified Allergy, Unknown, 07/17/18) Past Surgical History Tracheostomy Past Surgical Hx: other Family History Significant Family History: no pertinent family hx, other Social History Alcohol Use: none Smoking Status: Former smoker Drug Use: none Exam/Review of Systems Vital Signs Vitals Vital Signs Date Temp Pulse Resp B/P (MAP) Pulse Ox O2 O2 Flow FiO2 Time Delivery Rate 10/20/18 95 8.0 35 03:46 10/20/18 99.5 122 30 165/81 Mechanical 03:30 (109) Ventilator Trach Collar Intake and Output 10/19/18 10/19/18 10/20/18 1515:00 23:00 07:00 IntakeIntake Total 1050 ml BalanceBalance 1050 ml Exam Exam General: Patient is currently lying in bed, he does smell of urine, he appears to be in mild respiratory distress HEENT: Atraumatic, normocephalic. The pupils are equal, round and reactive. Extraocular motor are intact, trach collar Neck: Supple with full range of motion. No rigidity or meningismus Chest: Nontender Lungs: Coarse breath sounds bilaterally, expiratory wheezing Heart: Sinus tachycardia, Abdomen: Soft , nontender, nondistended , bowel sounds are present. No guarding no rebound tenderness , No masses or organomegaly. No costovertebral temporal angle mass Extremities: Normal to inspection, no edema no cyanosis Neurologic: Normal mental status, speech normal, cranial nerves II through XII are intact, motor and sensory are intact, Additional Comments PROCEDURE: Chest x-ray CLINICAL INDICATION: Asthma exacerbation. TECHNIQUE: VIEWS: 1 COMPARISON: CR CHEST 03/05/2018; CR CHEST 02/28/2018; CR CHEST 02/24/2018 FINDINGS: SUPPORT DEVICES: Tracheostomy cannula overlies the upper trachea CARDIAC AND MEDIASTINAL SILHOUETTES: The cardiomediastinal silhouette is magnified . There are thoracic aortic atherosclerotic calcifications. LUNGS AND PLEURAL SPACE: Chronic right-sided volume loss with elevated diaphragm . There is right lower lobe fibrosis.. Coarse chronic left sided parenchymal changes are present. No pulmonary edema or consolidation. Chronic blunting of the right costophrenic angle secondary to pleural thickening. PNEUMOTHORAX: None. OSSEOUS STRUCTURES: There are multiple old right rib fractures. IMPRESSION: 1. 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 2. Aortic atherosclerosis. 3. Healed right rib fractures. 4. Tracheostomy cannula in place. RPTAT: HRSR Physician Mary Date Time Electronically viewed and signed by Physician Mary on 10/20/2018 02:50 RR/ CC: RAUL ZULETA MD [id number] JOSHUA NIXON Oct 20, 2018 04:07
[2018-10-20] MEDS: morphine 2 MG INJ IV PRN ×4 (04:17→22:33)
[2018-10-20] MEDS ORDERED: LORAZEPAM 2 MG INJ IV ONE (04:23)
[2018-10-20] MEDS: ALBUTEROL/IPRATROPIUM (NEB) 3 ML AMP HHN SCH ×7 (05:00→19:55)
[2018-10-20] MEDS: INSULIN ASPART [NOVOLOG] 3 ML PEN SC SCH ×5 (05:00→20:34)
[2018-10-20] MEDS ORDERED: DILTIAZEM 25 MG INJ IV ONE (06:00)
[2018-10-20] MEDS: METHYLPREDNISOLONE 40 MG INJ IV SCH ×3 (06:45→20:09)
[2018-10-20] MEDS: LEVOFLOXACIN 750MG/D5W (PMX) 150 ML IVPB SCH (06:45)
[2018-10-20 08:00] VITALS: BP 165/82; PULSE 110; RESP 17
[2018-10-20 09:00] VITALS: Ht 180.3 cm; Wt 68.0 kg
[2018-10-20] MEDS ORDERED: FAMOTIDINE 20 MG INJ IV SCH (09:00)
[2018-10-20] MEDS: LISINOPRIL 20 MG TAB PO SCH (09:06)
[2018-10-20] MEDS: MULTIVITAMINS/MINERALS TAB PO SCH (09:07)
[2018-10-20] MEDS: HYDROCODONE/APAP (10/325) TAB GTB PRN ×2 (09:07→20:08)
[2018-10-20] MEDS: AMLODIPINE 10 MG TAB PO SCH (09:08)
[2018-10-20] MEDS: ASCORBIC ACID 250 MG TAB PO SCH (09:08)
[2018-10-20] MEDS: ZINC SULFATE 220 MG CAP PO SCH (09:08)
[2018-10-20] MEDS: PANTOPRAZOLE (EC) 40 MG TAB PO SCH (09:08)
[2018-10-20] MEDS: FERROUS SULFATE (EC) 325 MG TAB PO SCH ×2 (09:08→20:09)
[2018-10-20] MEDS: ENOXAPARIN 40 MG/0.4 ML SYG SC SCH (09:12)
[2018-10-20] MEDS ORDERED: HYDROGEN PEROXIDE 118 ML TOP ONE (11:00)
[2018-10-20 11:57] VITALS: BP 135/71; PULSE 102; RESP 18
--- NOTE | 2018-10-20 15:49 | PN ---
Date/Time of Note Date/Time of Note DATE: 10/20/18 TIME: 15:45 Assessment/Plan VTE Prophylaxis SCD applied (from Nsg): Yes Pharmacological prophylaxis: LMWH Lines/Catheters IV Catheter Type (from Nrsg): Saline Lock Urinary Cath still in place: No Assessment/Plan Hospital Course Going assessment and plan 1. Acute on chronic COPD. -Was started on steroid medication continue on breathing treatments. -Appears to be improving. -E Learning Specialist following 2. Mild dehydration. - Continue on IV hydration. - Improving at present. 3. History of cystic lung disease. - Continue with breathing treatments. 4. Anemia. -Monitor H&H. 5. Hypertension. - Resume antihypertensives. 6. Transaminitis. - Etiology unknown. Monitor trend. Disposition and plan. Continue with breathing treatments. Was hypoglycemic. Insulin regimen to be adjusted as needed. Further recommendations pending clinical course. Discussed POC with Dr. Ceja Result Diagram: 10/20/18 0056 10/20/18 0056 Results 24hrs Laboratory Tests Test 10/20/18 00:28 10/20/18 00:56 10/20/18 01:53 10/20/18 02:31 Blood Gas Specimen Blood arterial Source Arterial Blood 10/20/2018 12:30:55 Date Drawn AM Arterial Blood pH 7.293 *L (Temp corrected) Arterial Blood 56.1 H pCO2 (Temp correct) Arterial Blood pO2 75.5 L (Temp corrected) Arterial Blood 26.6 H HCO3 Arterial Blood -0.5 Base Excess Arterial Blood 92.7 L Oxygen Saturation Ravindra Test ACCEPTAB Arterial Blood Gas Right Radial Puncture Site Arterial 0.1 Blood Carboxyhemog lobin Arterial Blood 0.4 Methemoglobin Blood Gas A-a O2 57.9 H Differential Oxyhemoglobin 92.2 L Percent Blood Gas 37.0 Temperature Blood Gas Modality TRACH COLLAR FiO2 28.0 Blood Gas Critical REGULO TREVIÑO Value Read Back Blood Gas Notified MA Whom Blood Gas Notified 10/20/2018 12:44:01 Time AM White Blood Count 8.6 Red Blood Count 3.77 L Hemoglobin 9.1 L Hematocrit 31.3 L Mean Corpuscular 83.0 Volume Mean Corpuscular 24.1 L Hemoglobin Mean Corpuscular 29.1 L Hemoglobin Concent Red Cell 21.9 H Distribution Width Platelet Count 239 Mean Platelet 9.5 Volume Immature 0.800 H Granulocytes % Neutrophils % 79.5 H Lymphocytes % 11.9 L Monocytes % 6.8 Eosinophils % 0.5 Basophils % 0.5 Nucleated Red 0.0 Blood Cells % Immature 0.070 H Granulocytes # Neutrophils # 6.8 Lymphocytes # 1.0 Monocytes # 0.6 Eosinophils # 0.0 Basophils # 0.0 Nucleated Red 0.0 Blood Cells # Sodium Level 146 H Potassium Level 4.3 Chloride Level 106 Carbon Dioxide 30 Level Anion Gap 10 Blood Urea 12 Nitrogen Creatinine 0.85 Est Glomerular > 60 Filtrat Rate mL/min Glucose Level 39 *L Calcium Level 8.7 Total Bilirubin 0.3 Direct Bilirubin 0.00 Indirect Bilirubin 0.3 Aspartate Amino 196 H Transf (AST/SGOT) Alanine 114 H Aminotransferase ( ALT/SGPT) Alkaline 93 Phosphatase Troponin I < 0.012 Total Protein 7.7 Albumin 3.7 Globulin 4.00 H Albumin/Globulin 0.92 Ratio Lipase 17 L Bedside Glucose 35 *L 111 Test 10/20/18 08:00 10/20/18 08:11 10/20/18 10:01 10/20/18 12:26 Blood Gas Specimen Blood arterial Source Arterial Blood 10/20/2018 7:27:20 Date Drawn AM Arterial Blood pH 7.340 L (Temp corrected) Arterial Blood 50.7 H pCO2 (Temp correct) Arterial Blood pO2 84.4 (Temp corrected) Arterial Blood 26.7 H HCO3 Arterial Blood 0.5 Base Excess Arterial Blood 95.6 Oxygen Saturation Ravindra Test ACCEPTAB Arterial Blood Gas Right Radial Puncture Site Arterial 0.2 Blood Carboxyhemog lobin Arterial Blood 0.4 Methemoglobin Blood Gas A-a O2 106.2 H Differential Oxyhemoglobin 95.0 Percent Blood Gas 37.0 Temperature Blood Gas Modality TRACH COLLAR FiO2 35.0 Blood Gas Notified TM Whom Blood Gas Notified 10/20/2018 7:40:12 Time AM Bedside Glucose 183 229 H 255 H Subjective 24 Hr Interval Summary Free Text/Dictation Reports that her breathing at this time. No specific complaints. RN at bedside. Exam/Review of Systems Exam Vitals Vital Signs Date Temp Pulse Resp B/P (MAP) Pulse Ox O2 O2 Flow FiO2 Time Delivery Rate 10/20/18 98.3 102 18 135/71 98 11:57 (92) 10/20/18 8.0 09:00 10/20/18 35 08:06 10/20/18 Aerosol 08:06 T Tube Intake and Output 10/19/18 10/19/18 10/20/18 1414:59 22:59 06:59 IntakeIntake Total 1050 ml BalanceBalance 1050 ml Constitutional: alert, oriented Psych: nl mood/affect Eyes: nl conjunctiva Neck: supple, non-tender Respiratory: diminished breath sounds (minimally at bases) Cardiovascular: other (regular rate ) Gastrointestinal: soft, non-tender Musculoskeletal: muscle weakness Neurological: nl mental status Results Results 24hrs Laboratory Tests Test 10/20/18 00:28 10/20/18 00:56 10/20/18 01:53 10/20/18 02:31 Blood Gas Specimen Blood arterial Source Arterial Blood 10/20/2018 12:30:55 Date Drawn AM Arterial Blood pH 7.293 *L (Temp corrected) Arterial Blood 56.1 H pCO2 (Temp correct) Arterial Blood pO2 75.5 L (Temp corrected) Arterial Blood 26.6 H HCO3 Arterial Blood -0.5 Base Excess Arterial Blood 92.7 L Oxygen Saturation Ravindra Test ACCEPTAB Arterial Blood Gas Right Radial Puncture Site Arterial 0.1 Blood Carboxyhemog lobin Arterial Blood 0.4 Methemoglobin Blood Gas A-a O2 57.9 H Differential Oxyhemoglobin 92.2 L Percent Blood Gas 37.0 Temperature Blood Gas Modality TRACH COLLAR FiO2 28.0 Blood Gas Critical DZOHDIANE TREVIÑO Value Read Back Blood Gas Notified MA Whom Blood Gas Notified 10/20/2018 12:44:01 Time AM White Blood Count 8.6 Red Blood Count 3.77 L Hemoglobin 9.1 L Hematocrit 31.3 L Mean Corpuscular 83.0 Volume Mean Corpuscular 24.1 L Hemoglobin Mean Corpuscular 29.1 L Hemoglobin Concent Red Cell 21.9 H Distribution Width Platelet Count 239 Mean Platelet 9.5 Volume Immature 0.800 H Granulocytes % Neutrophils % 79.5 H Lymphocytes % 11.9 L Monocytes % 6.8 Eosinophils % 0.5 Basophils % 0.5 Nucleated Red 0.0 Blood Cells % Immature 0.070 H Granulocytes # Neutrophils # 6.8 Lymphocytes # 1.0 Monocytes # 0.6 Eosinophils # 0.0 Basophils # 0.0 Nucleated Red 0.0 Blood Cells # Sodium Level 146 H Potassium Level 4.3 Chloride Level 106 Carbon Dioxide 30 Level Anion Gap 10 Blood Urea 12 Nitrogen Creatinine 0.85 Est Glomerular > 60 Filtrat Rate mL/min Glucose Level 39 *L Calcium Level 8.7 Total Bilirubin 0.3 Direct Bilirubin 0.00 Indirect Bilirubin 0.3 Aspartate Amino 196 H Transf (AST/SGOT) Alanine 114 H Aminotransferase ( ALT/SGPT) Alkaline 93 Phosphatase Troponin I < 0.012 Total Protein 7.7 Albumin 3.7 Globulin 4.00 H Albumin/Globulin 0.92 Ratio Lipase 17 L Bedside Glucose 35 *L 111 Test 10/20/18 08:00 10/20/18 08:11 10/20/18 10:01 10/20/18 12:26 Blood Gas Specimen Blood arterial Source Arterial Blood 10/20/2018 7:27:20 Date Drawn AM Arterial Blood pH 7.340 L (Temp corrected) Arterial Blood 50.7 H pCO2 (Temp correct) Arterial Blood pO2 84.4 (Temp corrected) Arterial Blood 26.7 H HCO3 Arterial Blood 0.5 Base Excess Arterial Blood 95.6 Oxygen Saturation Ravindra Test ACCEPTAB Arterial Blood Gas Right Radial Puncture Site Arterial 0.2 Blood Carboxyhemog lobin Arterial Blood 0.4 Methemoglobin Blood Gas A-a O2 106.2 H Differential Oxyhemoglobin 95.0 Percent Blood Gas 37.0 Temperature Blood Gas Modality TRACH COLLAR FiO2 35.0 Blood Gas Notified TM Whom Blood Gas Notified 10/20/2018 7:40:12 Time AM Bedside Glucose 183 229 H 255 H Medications Medication Current Medications Alprazolam (Xanax) 2 mg Q8H PRN GTB ANXIETY; Start 10/20/18 at 02:30 Amlodipine Besylate (Norvasc) 10 mg DAILY PO Last administered on 10/20/18at 09:08; Admin Dose 10 MG; Start 10/20/18 at 09:00 Ascorbic Acid (Vitamin C) 250 mg DAILY PO Last administered on 10/20/18at 09:08; Admin Dose 250 MG; Start 10/20/18 at 09:00 Clonidine (Catapres) 0.1 mg TID GTB Last administered on 10/20/18at 12:27; Admin Dose 0.1 MG; Start 10/20/18 at 09:00 Enoxaparin Sodium (Lovenox) 40 mg DAILY SC Last administered on 10/20/18at 09:12; Admin Dose 40 MG; Start 10/20/18 at 09:00 Acetaminophen/ Hydrocodone Bitart ([place] (10/325)) 1 tab Q6H PRN GTB MODERATE PAIN 4-6 Last administered on 10/20/18 09:07; Admin Dose 1 TAB; Start 10/20/18 at 02:30 Albuterol/ Ipratropium (Duoneb) 3 ml Q6H RESP THERAPY HHN Last administered on 10/20/18 14:05; Admin Dose 3 ML; Start 10/20/18 at 08:00 Multivitamins/ Minerals (Theragran-M) 1 tab DAILY PO Last administered on 10/20/18 09:07; Admin Dose 1 TAB; Start 10/20/18 at 09:00 Zinc Sulfate (Zinc Sulfate) 220 mg DAILY PO Last administered on 10/20/18 09:08; Admin Dose 220 MG; Start 10/20/18 at 09:00 Dextrose/Sodium Chloride 1,000 ml @ 70 mls/hr [id number] IV ; Start 10/20/18 at 02:30 IV Flush (NS 3 ml) 3 ml PER PROTOCOL IV ; Start 10/20/18 at 02:30 Acetaminophen (Tylenol Supp) 650 mg Q6H PRN [place] .PAIN 1-3 OR TEMP; Start 10/20/18 at 02:30 Morphine Sulfate (morphine) 2 mg Q4H PRN IV .PAIN 7-10 Last administered on 10/20/18at 12:11; Admin Dose 2 MG; Start 10/20/18 at 02:30 Famotidine (Pepcid Iv) 20 mg Q12 IV Last administered on 10/20/18 09:08; Admin Dose 20 MG; Start 10/20/18 at 09:00 Methylprednisolone Sodium Succinate (Solu-Medrol) 30 mg Q8 IV Last administered on 10/20/18at 14:44; Admin Dose 30 MG; Start 10/20/18 at 06:00 Albuterol/ Ipratropium (Duoneb) 3 ml Q4H RESP THERAPY HHN Last administered on 10/20/18at 13:56; Admin Dose 3 ML; Start 10/20/18 at 05:00 Diagnostic Test (Pha) (Accu-Chek) 1 ea 02 XX ; Start 10/21/18 at 02:00 Insulin Aspart (Novolog Insulin Pen) NOVOLOG *MILD* ALGORI... Q4 SC Last administered on 10/20/18at 12:37; Admin Dose 3 UNIT; Start 10/20/18 at 05:00 Miscellaneous Information 1 ea NOTE XX ; Start 10/20/18 at 03:00 Glucose (Glutose) 15 gm Q15M PRN PO DECREASED GLUCOSE; Start 10/20/18 at 03:00 Glucose (Glutose) 22.5 gm Q15M PRN PO DECREASED GLUCOSE; Start 10/20/18 at 03:00 Dextrose (D50w Syringe) 25 ml Q15M PRN IV DECREASED GLUCOSE; Start 10/20/18 at 03:00 Dextrose (D50w Syringe) 50 ml Q15M PRN IV DECREASED GLUCOSE; Start 10/20/18 at 03:00 Glucagon (Glucagen) 1 mg Q15M PRN IM DECREASED GLUCOSE; Start 10/20/18 at 03:00 Glucose (Glutose) 15 gm Q15M PRN BUCCAL DECREASED GLUCOSE; Start 10/20/18 at 03:00 Ferrous Sulfate (Ferrous Sulfate (Ec)) 325 mg BID PO Last administered on 10/20/18at 09:08; Admin Dose 325 MG; Start 10/20/18 at 09:00 Lisinopril (Zestril) 20 mg DAILY PO Last administered on 10/20/18at 09:06; Admin Dose 20 MG; Start 10/20/18 at 09:00 Pantoprazole (Protonix Tab) 40 mg AC BREAKFAST PO Last administered on 10/20/18at 09:08; Admin Dose 40 MG; Start 10/20/18 at 07:00 Levofloxacin/ Dextrose 150 ml @ 100 mls/hr Q24H IVPB Last administered on 10/20/18at 06:45; Admin Dose 100 MLS/HR; Start 10/20/18 at 04:30; Stop 10/25/18 at 04:29 TAINA HALLMAN NP Oct 20, 2018 15:49
[2018-10-20 15:58] VITALS: BP 119/64; PULSE 110; RESP 17
--- NOTE | 2018-10-20 17:38 | CONS ---
DATE OF ADMISSION: 10/20/2018 DATE OF CONSULTATION: TYPE OF CONSULTATION: Pulmonary. REASON FOR CONSULTATION: Shortness of breath. Thank you, Dr. Ceja, for this consultation. HISTORY OF PRESENT ILLNESS: This is a 67-year-old gentleman with history of cavitating lung disease, COPD, tracheostomy, recurrent pneumonias, was discharged several weeks ago and now represents with i ncreasing shortness of breath, congestion and mild hypercapnia. The patient remains awake, alert, or iented, transferred to telemetry floor on mechanical ventilation. Normally, he is able to eat, off m echanical ventilation on cool aerosol. PAST MEDICAL HISTORY: Above with cystic lung disease, recurrent hemoptysis. MEDICATIONS: Per chart. ALLERGIES: NONE. SOCIAL HISTORY: He is a nonsmoker, no alcohol, no history of drug use. FAMILY HISTORY: Noncontributory. SYSTEMS REVIEW: A 12-point review of systems was negative other than as mentioned above. PHYSICAL EXAMINATION: GENERAL: Chronically ill appearing gentleman, appears comfortable at rest, in no acute distress. VITAL SIGNS: Currently afebrile, pulse is 100, blood pressure 135/70, O2 saturation 96% on FiO2 ____ _. NECK: Trach site is clean and intact. CARDIAC: S1, S2. No added sounds or murmur. CHEST: Diminished air entry bilaterally. ABDOMEN: Soft, nontender, no guarding, no rebound. EXTREMITIES: No cyanosis, clubbing or edema. NEUROLOGIC: Grossly intact. No focal deficits. LABORATORY DATA: White count 8.6, hemoglobin 9.1, platelets of 239. BUN 12, creatinine 0.85. AST a nd ALT mildly are elevated at 196 and 114. ABG: pH 7.34, pCO2 of 50, pO2 of 84, bicarbonate was 26. DIAGNOSTIC DATA: Chest x-ray was reviewed, which showed right lower lobe fibrosis, pleural thickenin g. IMPRESSION AND PLAN: 1. Chronic lung disease. 2. Cool aerosol with respiratory failure. 3. 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 4. Failure to thrive. PLAN: 1. Continue pulmonary toilet. 2. Bronchodilator. 3. Steroids. 4. Antibiotics. 5. DVT and GI prophylaxis. 5. I will check procalcitonin level to determine whether he needs antibiotics at this time. Dictated By: VAUGHN EDMONDS/MARIA GUADALUPE Conf#: [id number] [facility]#: [id number] CC: RODGER CEJA MD; JOSHUA NIXON MD;*[facility]*
[2018-10-20 19:37] VITALS: BP 146/68; PULSE 104; RESP 22
[2018-10-21] VITALS (7 sets, daily range): BP systolic 120–162; BP diastolic 61–79; PULSE 67–102; RESP 17–20
[2018-10-21] MEDS: ALBUTEROL/IPRATROPIUM (NEB) 3 ML AMP HHN SCH ×4 (01:32→20:12)
[2018-10-21] MEDS: ACCU-CHEK XX SCH (01:33)
[2018-10-21] MEDS: morphine 2 MG INJ IV PRN ×5 (02:24→22:26)
[2018-10-21] MEDS: LEVOFLOXACIN 750MG/D5W (PMX) 150 ML IVPB SCH (03:40)
[2018-10-21] MEDS: HYDROCODONE/APAP (10/325) TAB GTB PRN ×2 (04:45→20:28)
[2018-10-21] MEDS: DEXTROSE 5%-0.45% NACL 1,000 ML IV SCH ×2 (06:18→21:13)
[2018-10-21] MEDS: PANTOPRAZOLE (EC) 40 MG TAB PO SCH (06:22)
[2018-10-21] MEDS ORDERED: INSULIN ASPART [NOVOLOG] 3 ML PEN SC SCH (07:00)
[2018-10-21] MEDS: Insulin NOVOLOG SS MILD Algorithm (SS with meals and bedtime) SC SCH ×4 (07:31→21:02)
[2018-10-21] MEDS: ZINC SULFATE 220 MG CAP PO SCH (08:40)
[2018-10-21] MEDS: MULTIVITAMINS/MINERALS TAB PO SCH (08:40)
[2018-10-21] MEDS: ASCORBIC ACID 250 MG TAB PO SCH (08:41)
[2018-10-21] MEDS: AMLODIPINE 10 MG TAB PO SCH (08:41)
[2018-10-21] MEDS: FERROUS SULFATE (EC) 325 MG TAB PO SCH ×2 (08:41→20:28)
[2018-10-21] MEDS: LISINOPRIL 20 MG TAB PO SCH (08:41)
[2018-10-21] MEDS: METHYLPREDNISOLONE 40 MG INJ IV SCH (08:42)
[2018-10-21] MEDS: ENOXAPARIN 40 MG/0.4 ML SYG SC SCH (08:47)
[2018-10-21] MEDS ORDERED: VANCOMYCIN IV PER PHARMACY XX SCH (12:00)
--- NOTE | 2018-10-21 12:28 | CONS ---
Consult Date/Type/Reason Admit Date/Time Oct 20, 2018 at 02:04 Initial Consult Date Type of Consult Pulmonary Date/Time of Note DATE: 10/21/18 TIME: 12:27 Subjective Stable on cool aerosol no respiratory distress. Objective Vital Signs Date Temp Pulse Resp B/P (MAP) Pulse Ox O2 O2 Flow FiO2 Time Delivery Rate 10/21/18 69 20 96 Aerosol 8.0 35 11:48 T Tube 10/21/18 98.6 132/65 11:25 (87) Intake and Output 10/20/18 10/20/18 10/21/18 1515:00 23:00 07:00 IntakeIntake Total 230 ml 750 ml 300 ml OutputOutput Total 200 ml 450 ml 800 ml BalanceBalance 30 ml 300 ml -500 ml Exam PHYSICAL EXAMINATION: GENERAL: Chronically ill appearing gentleman, appears comfortable at rest, in no acute distress. VITAL SIGNS: _. NECK: Trach site is clean and intact. CARDIAC: S1, S2. No added sounds or murmur. CHEST: Diminished air entry bilaterally. ABDOMEN: Soft, nontender, no guarding, no rebound. EXTREMITIES: No cyanosis, clubbing or edema. NEUROLOGIC: Grossly intact. No focal deficits. Vent Setting Fraction of Inspired Oxygen pe: 35 Results/Medications Result Diagram: 10/21/18 0455 10/21/18 0455 Results 24 hrs Laboratory Tests Test 10/20/18 16:51 10/20/18 20:07 10/21/18 01:27 10/21/18 04:55 Bedside Glucose 312 H 295 H 214 White Blood Count 12.3 #H Red Blood Count 3.31 L Hemoglobin 8.2 L Hematocrit 26.6 L Mean Corpuscular Volume 80.4 L Mean Corpuscular 24.8 L Hemoglobin Mean Corpuscular 30.8 L Hemoglobin Concent Red Cell Distribution 21.6 H Width Platelet Count 205 Mean Platelet Volume 10.3 Immature Granulocytes % 0.400 Neutrophils % 93.0 H Lymphocytes % 3.7 L Monocytes % 2.8 Eosinophils % 0.0 Basophils % 0.1 Nucleated Red Blood 0.0 Cells % Immature Granulocytes # 0.050 H Neutrophils # 11.4 H Lymphocytes # 0.5 L Monocytes # 0.3 Eosinophils # 0.0 Basophils # 0.0 Nucleated Red Blood 0.0 Cells # Sodium Level 139 Potassium Level 4.6 Chloride Level 102 Carbon Dioxide Level 30 Anion Gap 7 Blood Urea Nitrogen 13 Creatinine 0.73 Est Glomerular Filtrat > 60 Rate mL/min Glucose Level 201 # Calcium Level 8.7 Total Bilirubin 0.3 Direct Bilirubin 0.00 Indirect Bilirubin 0.3 Aspartate Amino 64 #H Transf (AST/SGOT) Alanine 74 H Aminotransferase (ALT/SG PT) Alkaline Phosphatase 72 Total Protein 7.0 Albumin 3.4 Globulin 3.60 H Albumin/Globulin Ratio 0.94 Test 10/21/18 07:15 10/21/18 11:51 Bedside Glucose 151 196 Medications Current Medications Alprazolam (Xanax) 2 mg Q8H PRN GTB ANXIETY; Start 10/20/18 at 02:30 Amlodipine Besylate (Norvasc) 10 mg DAILY PO Last administered on 10/21/18 08:41; Admin Dose 10 MG; Start 10/20/18 at 09:00 Ascorbic Acid (Vitamin C) 250 mg DAILY PO Last administered on 10/21/18 08:41; Admin Dose 250 MG; Start 10/20/18 at 09:00 Clonidine (Catapres) 0.1 mg TID GTB Last administered on 10/21/18 12:21; Admin Dose 0.1 MG; Start 10/20/18 at 09:00 Enoxaparin Sodium (Lovenox) 40 mg DAILY SC Last administered on 10/21/18 08:47; Admin Dose 40 MG; Start 10/20/18 at 09:00 Acetaminophen/ Hydrocodone Bitart ([place] (10/325)) 1 tab Q6H PRN GTB MODERATE PAIN 4-6 Last administered on 10/21/18 04:45; Admin Dose 1 TAB; Start 10/20/18 at 02:30 Albuterol/ Ipratropium (Duoneb) 3 ml Q6H RESP THERAPY HHN Last administered on 10/21/18 08:58; Admin Dose 3 ML; Start 10/20/18 at 08:00 Multivitamins/ Minerals (Theragran-M) 1 tab DAILY PO Last administered on 10/21/18 08:40; Admin Dose 1 TAB; Start 10/20/18 at 09:00 Zinc Sulfate (Zinc Sulfate) 220 mg DAILY PO Last administered on 10/21/18 08:40; Admin Dose 220 MG; Start 10/20/18 at 09:00 Dextrose/Sodium Chloride 1,000 ml @ 70 mls/hr [id number] IV ; Start 10/20/18 at 02:30 IV Flush (NS 3 ml) 3 ml PER PROTOCOL IV ; Start 10/20/18 at 02:30 Acetaminophen (Tylenol Supp) 650 mg Q6H PRN [place] .PAIN 1-3 OR TEMP; Start 10/20/18 at 02:30 Morphine Sulfate (morphine) 2 mg Q4H PRN IV .PAIN 7-10 Last administered on 10/21/18at 10:23; Admin Dose 2 MG; Start 10/20/18 at 02:30 Diagnostic Test (Pha) (Accu-Chek) 1 ea 02 XX Last administered on 10/21/18at 01:33; Admin Dose 1 EA; Start 10/21/18 at 02:00 Miscellaneous Information 1 ea NOTE XX ; Start 10/20/18 at 03:00 Glucose (Glutose) 15 gm Q15M PRN PO DECREASED GLUCOSE; Start 10/20/18 at 03:00 Glucose (Glutose) 22.5 gm Q15M PRN PO DECREASED GLUCOSE; Start 10/20/18 at 03:00 Dextrose (D50w Syringe) 25 ml Q15M PRN IV DECREASED GLUCOSE; Start 10/20/18 at 03:00 Dextrose (D50w Syringe) 50 ml Q15M PRN IV DECREASED GLUCOSE; Start 10/20/18 at 03:00 Glucagon (Glucagen) 1 mg Q15M PRN IM DECREASED GLUCOSE; Start 10/20/18 at 03:00 Glucose (Glutose) 15 gm Q15M PRN BUCCAL DECREASED GLUCOSE; Start 10/20/18 at 03:00 Ferrous Sulfate (Ferrous Sulfate (Ec)) 325 mg BID PO Last administered on 10/21/18at 08:41; Admin Dose 325 MG; Start 10/20/18 at 09:00 Lisinopril (Zestril) 20 mg DAILY PO Last administered on 10/21/18at 08:41; Admin Dose 20 MG; Start 10/20/18 at 09:00 Pantoprazole (Protonix Tab) 40 mg AC BREAKFAST PO Last administered on 10/21/18at 06:22; Admin Dose 40 MG; Start 10/20/18 at 07:00 Insulin Aspart (Novolog Insulin Pen) (Adult SC Insulin - Mild Algorithm)... AC MEALS AND BEDTIME SC Last administered on 10/21/18at 11:55; Admin Dose 2 UNIT; Start 10/21/18 at 07:00 Vancomycin HCl (Vanco Iv Per Pharmacy) VANCOMYCIN PER PHARMACY PER PROTOCOL XX ; Start 10/21/18 at 12:00 Vancomycin HCl 1.25 gm/Sodium Chloride 250 ml @ 83.333 mls/ hr Q24H IVPB ; Start 10/21/18 at 14:00 Assessment/Plan Hospital Course (Demo Recall) IMPRESSION AND PLAN: 1. Chronic lung disease. 2. Cool aerosol with respiratory failure. 3. 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 4. Failure to thrive. 5. Possible acute on chronic infection PLAN: 1. Continue pulmonary toilet. 2. Bronchodilator. 3. Steroids. 4. Antibiotics. 5. DVT and GI prophylaxis. 5. Aspiration precautions DC planning soon. VAUGHN NICHOLS MD, [facility] Oct 21, 2018 12:28
[2018-10-21] MEDS: VANCOMYCIN HCL 1.25 GM in SOD CHLORIDE 0.9% 250 ML IVPB SCH (14:03)
--- NOTE | 2018-10-21 14:39 | PN ---
Date/Time of Note Date/Time of Note DATE: 10/21/18 TIME: 14:37 Assessment/Plan VTE Prophylaxis Risk score (from [facility] [place])>0 risk: 5 SCD applied (from [facility] [place]): Yes Pharmacological prophylaxis: LMWH Lines/Catheters IV [facility] (from [facility] Saline Lock Urinary Cath still in place: No Assessment/Plan Hospital Course Going assessment and plan 1. Acute on chronic COPD. -continue on breathing treatments. -Appears to be improving. -Rivet Catcher following 2. Mild dehydration. - Continue on IV hydration. - Improving at present. 3. History of cystic lung disease. - Continue with breathing treatments. 4. Anemia. -Monitor H&H. 5. Hypertension. - Resume antihypertensives. 6. Transaminitis. - Etiology unknown. Monitor trend. 7. Bacteremia - on abx - f/u final cultures Disposition and plan. Continue with breathing treatments. Follow-up on blood cultures. On antibiotics for now. Will adjust depending on cultures. Anticipate DC within the next 24 hours if medically stable Discussed POC with Dr. Ceja Result Diagram: 10/21/18 0455 10/21/18 0455 Results 24hrs Laboratory Tests Test 10/20/18 16:51 10/20/18 20:07 10/21/18 01:27 10/21/18 04:55 Bedside Glucose 312 H 295 H 214 White Blood Count 12.3 #H Red Blood Count 3.31 L Hemoglobin 8.2 L Hematocrit 26.6 L Mean Corpuscular Volume 80.4 L Mean Corpuscular 24.8 L Hemoglobin Mean Corpuscular 30.8 L Hemoglobin Concent Red Cell Distribution 21.6 H Width Platelet Count 205 Mean Platelet Volume 10.3 Immature Granulocytes % 0.400 Neutrophils % 93.0 H Lymphocytes % 3.7 L Monocytes % 2.8 Eosinophils % 0.0 Basophils % 0.1 Nucleated Red Blood 0.0 Cells % Immature Granulocytes # 0.050 H Neutrophils # 11.4 H Lymphocytes # 0.5 L Monocytes # 0.3 Eosinophils # 0.0 Basophils # 0.0 Nucleated Red Blood 0.0 Cells # Sodium Level 139 Potassium Level 4.6 Chloride Level 102 Carbon Dioxide Level 30 Anion Gap 7 Blood Urea Nitrogen 13 Creatinine 0.73 Est Glomerular Filtrat > 60 Rate mL/min Glucose Level 201 # Calcium Level 8.7 Total Bilirubin 0.3 Direct Bilirubin 0.00 Indirect Bilirubin 0.3 Aspartate Amino 64 #H Transf (AST/SGOT) Alanine 74 H Aminotransferase (ALT/SG PT) Alkaline Phosphatase 72 Total Protein 7.0 Albumin 3.4 Globulin 3.60 H Albumin/Globulin Ratio 0.94 Test 10/21/18 07:15 10/21/18 11:51 Bedside Glucose 151 196 Subjective 24 Hr Interval Summary Free Text/Dictation denies any shortness of breath. comfortable at present. no reports of pain Exam/Review of Systems Exam Vitals Vital Signs Date Temp Pulse Resp B/P (MAP) Pulse Ox O2 O2 Flow FiO2 Time Delivery Rate 10/21/18 69 20 96 Aerosol 8.0 35 11:48 T Tube 10/21/18 98.6 132/65 11:25 (87) Intake and Output 10/20/18 10/20/18 10/21/18 1515:00 23:00 07:00 IntakeIntake Total 230 ml 750 ml 300 ml OutputOutput Total 200 ml 450 ml 800 ml BalanceBalance 30 ml 300 ml -500 ml Results Results 24hrs Laboratory Tests Test 10/20/18 16:51 10/20/18 20:07 10/21/18 01:27 10/21/18 04:55 Bedside Glucose 312 H 295 H 214 White Blood Count 12.3 #H Red Blood Count 3.31 L Hemoglobin 8.2 L Hematocrit 26.6 L Mean Corpuscular Volume 80.4 L Mean Corpuscular 24.8 L Hemoglobin Mean Corpuscular 30.8 L Hemoglobin Concent Red Cell Distribution 21.6 H Width Platelet Count 205 Mean Platelet Volume 10.3 Immature Granulocytes % 0.400 Neutrophils % 93.0 H Lymphocytes % 3.7 L Monocytes % 2.8 Eosinophils % 0.0 Basophils % 0.1 Nucleated Red Blood 0.0 Cells % Immature Granulocytes # 0.050 H Neutrophils # 11.4 H Lymphocytes # 0.5 L Monocytes # 0.3 Eosinophils # 0.0 Basophils # 0.0 Nucleated Red Blood 0.0 Cells # Sodium Level 139 Potassium Level 4.6 Chloride Level 102 Carbon Dioxide Level 30 Anion Gap 7 Blood Urea Nitrogen 13 Creatinine 0.73 Est Glomerular Filtrat > 60 Rate mL/min Glucose Level 201 # Calcium Level 8.7 Total Bilirubin 0.3 Direct Bilirubin 0.00 Indirect Bilirubin 0.3 Aspartate Amino 64 #H Transf (AST/SGOT) Alanine 74 H Aminotransferase (ALT/SG PT) Alkaline Phosphatase 72 Total Protein 7.0 Albumin 3.4 Globulin 3.60 H Albumin/Globulin Ratio 0.94 Test 10/21/18 07:15 10/21/18 11:51 Bedside Glucose 151 196 Medications Medication Current Medications Alprazolam (Xanax) 2 mg Q8H PRN GTB ANXIETY; Start 10/20/18 at 02:30 Amlodipine Besylate (Norvasc) 10 mg DAILY PO Last administered on 10/21/18 08:41; Admin Dose 10 MG; Start 10/20/18 at 09:00 Ascorbic Acid (Vitamin C) 250 mg DAILY PO Last administered on 10/21/18 08:41; Admin Dose 250 MG; Start 10/20/18 at 09:00 Clonidine (Catapres) 0.1 mg TID GTB Last administered on 10/21/18 12:21; Admin Dose 0.1 MG; Start 10/20/18 at 09:00 Enoxaparin Sodium (Lovenox) 40 mg DAILY SC Last administered on 10/21/18 08:47; Admin Dose 40 MG; Start 10/20/18 at 09:00 Acetaminophen/ Hydrocodone Bitart ([place] (10325)) 1 tab Q6H PRN GTB MODERATE PAIN 4-6 Last administered on 10/21/18 04:45; Admin Dose 1 TAB; Start 10/20/18 at 02:30 Albuterol/ Ipratropium (Duoneb) 3 ml Q6H RESP THERAPY HHN Last administered on 10/21/18 08:58; Admin Dose 3 ML; Start 10/20/18 at 08:00 Multivitamins/ Minerals (Theragran-M) 1 tab DAILY PO Last administered on 10/21/18 08:40; Admin Dose 1 TAB; Start 10/20/18 at 09:00 Zinc Sulfate (Zinc Sulfate) 220 mg DAILY PO Last administered on 10/21/18 08:40; Admin Dose 220 MG; Start 10/20/18 at 09:00 Dextrose/Sodium Chloride 1,000 ml @ 70 mls/hr [id number] IV ; Start 10/20/18 at 02:30 IV Flush (NS 3 ml) 3 ml PER PROTOCOL IV ; Start 10/20/18 at 02:30 Acetaminophen (Tylenol Supp) 650 mg Q6H PRN [place] .PAIN 1-3 OR TEMP; Start 10/20/18 at 02:30 Morphine Sulfate (morphine) 2 mg Q4H PRN IV .PAIN 7-10 Last administered on 10/21/18at 10:23; Admin Dose 2 MG; Start 10/20/18 at 02:30 Diagnostic Test (Pha) (Accu-Chek) 1 ea 02 XX Last administered on 10/21/18at 01:33; Admin Dose 1 EA; Start 10/21/18 at 02:00 Miscellaneous Information 1 ea NOTE XX ; Start 10/20/18 at 03:00 Glucose (Glutose) 15 gm Q15M PRN PO DECREASED GLUCOSE; Start 10/20/18 at 03:00 Glucose (Glutose) 22.5 gm Q15M PRN PO DECREASED GLUCOSE; Start 10/20/18 at 03:00 Dextrose (D50w Syringe) 25 ml Q15M PRN IV DECREASED GLUCOSE; Start 10/20/18 at 03:00 Dextrose (D50w Syringe) 50 ml Q15M PRN IV DECREASED GLUCOSE; Start 10/20/18 at 03:00 Glucagon (Glucagen) 1 mg Q15M PRN IM DECREASED GLUCOSE; Start 10/20/18 at 03:00 Glucose (Glutose) 15 gm Q15M PRN BUCCAL DECREASED GLUCOSE; Start 10/20/18 at 03:00 Ferrous Sulfate (Ferrous Sulfate (Ec)) 325 mg BID PO Last administered on 10/21/18at 08:41; Admin Dose 325 MG; Start 10/20/18 at 09:00 Lisinopril (Zestril) 20 mg DAILY PO Last administered on 10/21/18at 08:41; Admin Dose 20 MG; Start 10/20/18 at 09:00 Pantoprazole (Protonix Tab) 40 mg AC BREAKFAST PO Last administered on 10/21/18at 06:22; Admin Dose 40 MG; Start 10/20/18 at 07:00 Insulin Aspart (Novolog Insulin Pen) (Adult SC Insulin - Mild Algorithm)... AC MEALS AND BEDTIME SC Last administered on 10/21/18at 11:55; Admin Dose 2 UNIT; Start 10/21/18 at 07:00 Vancomycin HCl (Vanco Iv Per Pharmacy) VANCOMYCIN PER PHARMACY PER PROTOCOL XX ; Start 10/21/18 at 12:00 Vancomycin HCl 1.25 gm/Sodium Chloride 250 ml @ 83.333 mls/ hr Q24H IVPB Last administered on 10/21/18at 14:03; Admin Dose 83.333 MLS/HR; Start 10/21/18 at 14:00 TAINA HALLMAN NP Oct 21, 2018 14:39
[2018-10-22] VITALS (11 sets, daily range): BP systolic 103–158; BP diastolic 62–93; PULSE 76–117; RESP 18–20
[2018-10-22] MEDS: ALBUTEROL/IPRATROPIUM (NEB) 3 ML AMP HHN SCH ×4 (01:36→20:33)
[2018-10-22] MEDS: ACCU-CHEK XX SCH (02:10)
[2018-10-22] MEDS: morphine 2 MG INJ IV PRN ×3 (02:27→11:24)
[2018-10-22] MEDS: HYDROCODONE/APAP (10/325) TAB GTB PRN ×2 (05:00→17:16)
[2018-10-22] MEDS: PANTOPRAZOLE (EC) 40 MG TAB PO SCH (06:39)
[2018-10-22] MEDS: Insulin NOVOLOG SS MILD Algorithm (SS with meals and bedtime) SC SCH ×4 (07:00→21:55)
[2018-10-22] MEDS ORDERED: NA POLYST SULFON 15 GM/60 ML BTL PO ONE (08:00)
[2018-10-22] MEDS: ASCORBIC ACID 250 MG TAB PO SCH (08:32)
[2018-10-22] MEDS: FERROUS SULFATE (EC) 325 MG TAB PO SCH ×2 (08:32→21:53)
[2018-10-22] MEDS: ZINC SULFATE 220 MG CAP PO SCH (08:32)
[2018-10-22] MEDS: LISINOPRIL 20 MG TAB PO SCH (08:33)
[2018-10-22] MEDS: MULTIVITAMINS/MINERALS TAB PO SCH (08:33)
[2018-10-22] MEDS: AMLODIPINE 10 MG TAB PO SCH (08:33)
[2018-10-22] MEDS: ENOXAPARIN 40 MG/0.4 ML SYG SC SCH (08:37)
[2018-10-22] MEDS: DEXTROSE 5%-0.45% NACL 1,000 ML IV SCH (11:15)
[2018-10-22] MEDS: ALPRAZOLAM 1 MG TAB GTB PRN (11:52)
--- NOTE | 2018-10-22 12:18 | PN ---
Date/Time of Note Date/Time of Note DATE: 10/22/18 TIME: 12:13 Assessment/Plan VTE Prophylaxis [place] [facility] [place]: 5 [place]CD applied [place] [facility] [place] Yes Pharmacological prophylaxis: LMWH Lines/Catheters IV [facility]ter Type (from [facility] Saline Lock Urinary Cath still in place: No Assessment/Plan Hospital Course Going assessment and plan 1. Acute on chronic COPD. -Was started on steroid medication continue on breathing treatments. -Patient Services Assistant following - f/u CXR for worse brathing 2. Mild dehydration. - Continue on IV hydration. 3. History of cystic lung disease. - Continue with breathing treatments. 4. Anemia. -Monitor H&H. 5. Hypertension. - Resume antihypertensives. 6. Transaminitis. - Etiology unknown. Monitor trend. 7. Bacteremia - on abx - ID consult to follow - f/u final cultures (blood/respiratory) Disposition and plan. was reportedly mentally altered. f/u brain imaging. f/u chest imaging. ABG with co2 retention. continue breathing tx. ID consult to follow. Discussed POC with Dr. Cjea Result Diagram: 10/22/18 0503 10/22/18 0503 Results 24hrs Laboratory Tests Test 10/21/18 16:56 10/21/18 20:27 10/22/18 01:54 10/22/18 05:03 Bedside Glucose 161 283 H 103 White Blood Count 16.4 #H Red Blood Count 4.07 #L Hemoglobin 10.1 #L Hematocrit 33.0 #L Mean Corpuscular 81.1 L Volume Mean Corpuscular 24.8 L Hemoglobin Mean Corpuscular 30.6 L Hemoglobin Concent Red Cell 22.4 H Distribution Width Platelet Count 244 Mean Platelet 10.6 H Volume Immature 0.300 Granulocytes % Neutrophils % 86.6 H Lymphocytes % 6.3 L Monocytes % 6.7 Eosinophils % 0.0 Basophils % 0.1 Nucleated Red 0.0 Blood Cells % Immature 0.050 H Granulocytes # Neutrophils # 14.2 H Lymphocytes # 1.0 Monocytes # 1.1 H Eosinophils # 0.0 Basophils # 0.0 Nucleated Red 0.0 Blood Cells # Sodium Level 138 Potassium Level 5.6 H Chloride Level 100 Carbon Dioxide 30 Level Anion Gap 8 Blood Urea 19 Nitrogen Creatinine 0.74 Est Glomerular > 60 Filtrat Rate mL/min Glucose Level 88 # Calcium Level 9.6 Test 10/22/18 07:12 10/22/18 08:57 10/22/18 10:03 10/22/18 11:10 Bedside Glucose 96 120 Blood Gas Specimen Blood arterial Source Arterial Blood 10/22/2018 9:30:07 Date Drawn AM Arterial Blood pH 7.374 (Temp corrected) Arterial Blood 56.2 H pCO2 (Temp correct) Arterial Blood pO2 93.3 (Temp corrected) Arterial Blood 32.1 H HCO3 Arterial Blood 5.6 H Base Excess Arterial Blood 96.7 Oxygen Saturation Ravindra Test ACCEPTAB Arterial Blood Gas Right Radial Puncture Site Arterial 0.3 Blood Carboxyhemog lobin Arterial Blood 0.2 Methemoglobin Blood Gas A-a O2 40.0 H Differential Oxyhemoglobin 96.2 Percent Blood Gas 37.0 Temperature Blood Gas Modality TRACH COLLAR FiO2 28.0 Blood Gas Notified TM Whom Blood Gas Notified 10/22/2018 9:38:50 Time AM Lactic Acid Level 0.8 Test 10/22/18 11:22 Bedside Glucose 143 Subjective 24 Hr Interval Summary Free Text/Dictation with worse breathing. anxious Exam/Review of Systems Exam Vitals Vital Signs Date Temp Pulse Resp B/P (MAP) Pulse Ox O2 O2 Flow FiO2 Time Delivery Rate 10/22/18 97.5 101 20 135/93 98 10:38 (107) 10/22/18 5.0 10:00 10/22/18 Aerosol 28 08:19 Intake and Output 10/21/18 10/21/18 10/22/18 1515:00 23:00 07:00 IntakeIntake Total 750 ml 950 ml OutputOutput Total 820 ml 1450 ml 850 ml BalanceBalance -70 ml -500 ml -850 ml Exam Constitutional: alert, oriented Psych: nl mood/affect Eyes: nl conjunctiva Neck: supple, non-tender Respiratory: diminished breath sounds Cardiovascular: other (regular rate ) Gastrointestinal: soft, non-tender Musculoskeletal: muscle weakness Neurological: nl mental status Results Results 24hrs Laboratory Tests Test 10/21/18 16:56 10/21/18 20:27 10/22/18 01:54 10/22/18 05:03 Bedside Glucose 161 283 H 103 White Blood Count 16.4 #H Red Blood Count 4.07 #L Hemoglobin 10.1 #L Hematocrit 33.0 #L Mean Corpuscular 81.1 L Volume Mean Corpuscular 24.8 L Hemoglobin Mean Corpuscular 30.6 L Hemoglobin Concent Red Cell 22.4 H Distribution Width Platelet Count 244 Mean Platelet 10.6 H Volume Immature 0.300 Granulocytes % Neutrophils % 86.6 H Lymphocytes % 6.3 L Monocytes % 6.7 Eosinophils % 0.0 Basophils % 0.1 Nucleated Red 0.0 Blood Cells % Immature 0.050 H Granulocytes # Neutrophils # 14.2 H Lymphocytes # 1.0 Monocytes # 1.1 H Eosinophils # 0.0 Basophils # 0.0 Nucleated Red 0.0 Blood Cells # Sodium Level 138 Potassium Level 5.6 H Chloride Level 100 Carbon Dioxide 30 Level Anion Gap 8 Blood Urea 19 Nitrogen Creatinine 0.74 Est Glomerular > 60 Filtrat Rate mL/min Glucose Level 88 # Calcium Level 9.6 Test 10/22/18 07:12 10/22/18 08:57 10/22/18 10:03 10/22/18 11:10 Bedside Glucose 96 120 Blood Gas Specimen Blood arterial Source Arterial Blood 10/22/2018 9:30:07 Date Drawn AM Arterial Blood pH 7.374 (Temp corrected) Arterial Blood 56.2 H pCO2 (Temp correct) Arterial Blood pO2 93.3 (Temp corrected) Arterial Blood 32.1 H HCO3 Arterial Blood 5.6 H Base Excess Arterial Blood 96.7 Oxygen Saturation Ravindra Test ACCEPTAB Arterial Blood Gas Right Radial Puncture Site Arterial 0.3 Blood Carboxyhemog lobin Arterial Blood 0.2 Methemoglobin Blood Gas A-a O2 40.0 H Differential Oxyhemoglobin 96.2 Percent Blood Gas 37.0 Temperature Blood Gas Modality TRACH COLLAR FiO2 28.0 Blood Gas Notified TM Whom Blood Gas Notified 10/22/2018 9:38:50 Time AM Lactic Acid Level 0.8 Test 10/22/18 11:22 Bedside Glucose 143 Medications Medication Current Medications Alprazolam (Xanax) 2 mg Q8H PRN GTB ANXIETY Last administered on 10/22/18at 11:52; Admin Dose 2 MG; Start 10/20/18 at 02:30 Amlodipine Besylate (Norvasc) 10 mg DAILY PO Last administered on 10/22/18at 08 :33; Admin Dose 10 MG; Start 10/20/18 at 09:00 Ascorbic Acid (Vitamin C) 250 mg DAILY PO Last administered on 10/22/18at 08:32; Admin Dose 250 MG; Start 10/20/18 at 09:00 Clonidine (Catapres) 0.1 mg TID GTB Last administered on 10/22/18 08:32; Admin Dose 0.1 MG; Start 10/20/18 at 09:00 Enoxaparin Sodium (Lovenox) 40 mg DAILY SC Last administered on 10/22/18 08:37; Admin Dose 40 MG; Start 10/20/18 at 09:00 Acetaminophen/ Hydrocodone Bitart ([place] ()) 1 tab Q6H PRN GTB MODERATE PAIN 4-6 Last administered on 10/22/18 05:00; Admin Dose 1 TAB; Start 10/20/18 at 02:30 Albuterol/ Ipratropium (Duoneb) 3 ml Q6H RESP THERAPY HHN Last administered on 10/22/18 08:09; Admin Dose 3 ML; Start 10/20/18 at 08:00 Multivitamins/ Minerals (Theragran-M) 1 tab DAILY PO Last administered on 10/22/18 08:33; Admin Dose 1 TAB; Start 10/20/18 at 09:00 Zinc Sulfate (Zinc Sulfate) 220 mg DAILY PO Last administered on 10/22/18 08:32; Admin Dose 220 MG; Start 10/20/18 at 09:00 Dextrose/Sodium Chloride 1,000 ml @ 70 mls/hr [id number] IV ; Start 10/20/18 at 02:30 IV Flush (NS 3 ml) 3 ml PER PROTOCOL IV ; Start 10/20/18 at 02:30 Acetaminophen (Tylenol Supp) 650 mg Q6H PRN [place] .PAIN 1-3 OR TEMP; Start 10/20/18 at 02:30 Morphine Sulfate (morphine) 2 mg Q4H PRN IV .PAIN 7-10 Last administered on 10/22/18 11:24; Admin Dose 2 MG; Start 10/20/18 at 02:30 Diagnostic Test (Pha) (Accu-Chek) 1 ea 02 XX Last administered on 10/22/18 02:10; Admin Dose 1 EA; Start 10/21/18 at 02:00 Miscellaneous Information 1 ea NOTE XX ; Start 10/20/18 at 03:00 Glucose (Glutose) 15 gm Q15M PRN PO DECREASED GLUCOSE; Start 10/20/18 at 03:00 Glucose (Glutose) 22.5 gm Q15M PRN PO DECREASED GLUCOSE; Start 10/20/18 at 03:00 Dextrose (D50w Syringe) 25 ml Q15M PRN IV DECREASED GLUCOSE; Start 10/20/18 at 03:00 Dextrose (D50w Syringe) 50 ml Q15M PRN IV DECREASED GLUCOSE; Start 10/20/18 at 03:00 Glucagon (Glucagen) 1 mg Q15M PRN IM DECREASED GLUCOSE; Start 10/20/18 at 03:00 Glucose (Glutose) 15 gm Q15M PRN BUCCAL DECREASED GLUCOSE; Start 10/20/18 at 03:00 Ferrous Sulfate (Ferrous Sulfate (Ec)) 325 mg BID PO Last administered on 10/22/18at 08:32; Admin Dose 325 MG; Start 10/20/18 at 09:00 Lisinopril (Zestril) 20 mg DAILY PO Last administered on 10/22/18at 08:33; Admin Dose 20 MG; Start 10/20/18 at 09:00 Pantoprazole (Protonix Tab) 40 mg AC BREAKFAST PO Last administered on 10/22/18 06:39; Admin Dose 40 MG; Start 10/20/18 at 07:00 Insulin Aspart (Novolog Insulin Pen) (Adult SC Insulin - Mild Algorithm)... AC MEALS AND BEDTIME SC Last administered on 10/22/18at 11:40; Admin Dose 1 UNIT; Start 10/21/18 at 07:00 Vancomycin HCl (Vanco Iv Per Pharmacy) VANCOMYCIN PER PHARMACY PER PROTOCOL XX ; Start 10/21/18 at 12:00 Vancomycin HCl 1.25 gm/Sodium Chloride 250 ml @ 83.333 mls/ hr Q24H IVPB Last administered on 10/21/18at 14:03; Admin Dose 83.333 MLS/HR; Start 10/21/18 at 14:00 TAINA HALLMAN NP Oct 22, 2018 12:18
[2018-10-22] MEDS: VANCOMYCIN HCL 1.25 GM in SOD CHLORIDE 0.9% 250 ML IVPB SCH (13:31)
--- NOTE | 2018-10-22 16:18 | CONS ---
DATE OF ADMISSION: 10/20/2018 DATE OF CONSULTATION: 10/22/2018 TYPE OF CONSULTATION: Infectious disease. REASON FOR CONSULTATION: Antibiotic management. HISTORY OF PRESENT ILLNESS: Juan Francisco Frazier is a 67-year-old male who came to the emergency room on 019 with complaints of shortness of breath, wheezing and possibly distal lodged tracheostomy. His problems include: 1. COPD. 2. Respiratory failure. 3. Tracheostomy. 4. Hypertension. 5. Anemia. 6. History of pulmonary cavitary lesion. 7. Hypertension. Acutely, the patient comes in as noted with shortness of breath. He has no hemoptysis, fever or chil ls. He is also nonverbal. PAST MEDICAL HISTORY: As outlined. SOCIAL HISTORY: He does smoke. He does abuse drugs and he does not drink alcohol. FAMILY HISTORY: Noncontributory. PHYSICAL EXAMINATION: GENERAL: He is an elderly, chronically debilitated male. VITAL SIGNS: He is afebrile. SKIN: Without generalized rash. NECK: Tracheostomy is placed properly. Otherwise supple. SKIN: Dry and intact and clean. LYMPH NODES: None palpable. CHEST: Decreased breath sounds at the bases. HEART: Without murmur or gallop. He is tachycardic. ABDOMEN: Soft, nontender without organosplenomegaly or masses. EXTREMITIES: Without cyanosis, clubbing or edema. RECTAL AND GENITAL: Deferred. NEUROLOGICAL: No focal neurological abnormalities. HOSPITAL COURSE: His white count on 10/20/2018 was 8.6, H and H of 9.1 and 31.3, platelet count 239, 000. BUN and creatinine is 12/0.85 and random glucose was only 39. He has 80% neutrophils. The pat ient is currently on vancomycin and cefepime and was placed on vancomycin and cefepime in the emergen cy room as well as methylprednisolone. My feeling was that he has right lower lobe fibrosis with ple ural thickening with blunting of right costophrenic angle, aortic atherosclerosis, healed rib fractur es, tracheostomy in place. My feeling is that he probably has some aspiration pneumonia as well. Hi s blood cultures were positive for gram-positive angel, which is probably a contaminant and he is growi ng gram-negative rods in his sputum. He has acute on chronic COPD, history of cystic lung disease. He is on antibiotics. He had blood culture on 10/20/2018. He is going to need repeat blood cultures . We will continue him on current therapy. I will dictate my findings to the hospitalist and also Dolores Glynn. Dictated By: MIRACLE DELCID MD, JD/MARIA GUADALUPE Conf#: [id number] DID#: [id number] CC: RODGER MOOENY MD; JOSHUA NIXON MD;*End*
--- NOTE | 2018-10-22 16:39 | CONS ---
Consult Date/Type/Reason Admit Date/Time Oct 20, 2018 at 02:04 Initial Consult Date Type of Consult Pulmonary Date/Time of Note DATE: 10/22/18 TIME: 16:38 Subjective Remains stable on cool aerosol. Objective Vital Signs Date Temp Pulse Resp B/P (MAP) Pulse Ox O2 O2 Flow FiO2 Time Delivery Rate 10/22/18 5.0 28 14:55 10/22/18 98.2 111 20 103/62 97 Trach 14:00 (76) Collar Intake and Output 10/21/18 10/21/18 10/22/18 1515:00 23:00 07:00 IntakeIntake Total 750 ml 950 ml OutputOutput Total 820 ml 1450 ml 850 ml BalanceBalance -70 ml -500 ml -850 ml Exam PHYSICAL EXAMINATION: GENERAL: Chronically ill appearing gentleman, appears comfortable at rest, in no acute distress. VITAL SIGNS: _. NECK: Trach site is clean and intact. CARDIAC: S1, S2. No added sounds or murmur. CHEST: Diminished air entry bilaterally. ABDOMEN: Soft, nontender, no guarding, no rebound. EXTREMITIES: No cyanosis, clubbing or edema. NEUROLOGIC: Grossly intact. No focal deficits. Vent Setting Fraction of Inspired Oxygen pe: 28 Results/Medications Result Diagram: 10/22/18 0503 10/22/18 0503 Results 24 hrs Laboratory Tests Test 10/21/18 16:56 10/21/18 20:27 10/22/18 01:54 10/22/18 05:03 Bedside Glucose 161 283 H 103 White Blood Count 16.4 #H Red Blood Count 4.07 #L Hemoglobin 10.1 #L Hematocrit 33.0 #L Mean Corpuscular 81.1 L Volume Mean Corpuscular 24.8 L Hemoglobin Mean Corpuscular 30.6 L Hemoglobin Concent Red Cell 22.4 H Distribution Width Platelet Count 244 Mean Platelet 10.6 H Volume Immature 0.300 Granulocytes % Neutrophils % 86.6 H Lymphocytes % 6.3 L Monocytes % 6.7 Eosinophils % 0.0 Basophils % 0.1 Nucleated Red 0.0 Blood Cells % Immature 0.050 H Granulocytes # Neutrophils # 14.2 H Lymphocytes # 1.0 Monocytes # 1.1 H Eosinophils # 0.0 Basophils # 0.0 Nucleated Red 0.0 Blood Cells # Sodium Level 138 Potassium Level 5.6 H Chloride Level 100 Carbon Dioxide 30 Level Anion Gap 8 Blood Urea 19 Nitrogen Creatinine 0.74 Est Glomerular > 60 Filtrat Rate mL/min Glucose Level 88 # Calcium Level 9.6 Test 10/22/18 07:12 10/22/18 08:57 10/22/18 10:03 10/22/18 11:10 Bedside Glucose 96 120 Blood Gas Specimen Blood arterial Source Arterial Blood 10/22/2018 9:30:07 Date Drawn AM Arterial Blood pH 7.374 (Temp corrected) Arterial Blood 56.2 H pCO2 (Temp correct) Arterial Blood pO2 93.3 (Temp corrected) Arterial Blood 32.1 H HCO3 Arterial Blood 5.6 H Base Excess Arterial Blood 96.7 Oxygen Saturation Ravindra Test ACCEPTAB Arterial Blood Gas Right Radial Puncture Site Arterial 0.3 Blood Carboxyhemog lobin Arterial Blood 0.2 Methemoglobin Blood Gas A-a O2 40.0 H Differential Oxyhemoglobin 96.2 Percent Blood Gas 37.0 Temperature Blood Gas Modality TRACH COLLAR FiO2 28.0 Blood Gas Notified TM Whom Blood Gas Notified 10/22/2018 9:38:50 Time AM Lactic Acid Level 0.8 Test 10/22/18 11:22 Bedside Glucose 143 Medications Current Medications Alprazolam (Xanax) 2 mg Q8H PRN GTB ANXIETY Last administered on 10/22/18 11:52; Admin Dose 2 MG; Start 10/20/18 at 02:30 Amlodipine Besylate (Norvasc) 10 mg DAILY PO Last administered on 10/22/18 08 :33; Admin Dose 10 MG; Start 10/20/18 at 09:00 Ascorbic Acid (Vitamin C) 250 mg DAILY PO Last administered on 10/22/18 08:32; Admin Dose 250 MG; Start 10/20/18 at 09:00 Clonidine (Catapres) 0.1 mg TID GTB Last administered on 10/22/18 12:26; Admin Dose 0.1 MG; Start 10/20/18 at 09:00 Enoxaparin Sodium (Lovenox) 40 mg DAILY SC Last administered on 10/22/18 08:37; Admin Dose 40 MG; Start 10/20/18 at 09:00 Acetaminophen/ Hydrocodone Bitart ([place] (10/325)) 1 tab Q6H PRN GTB MODERATE PAIN 4-6 Last administered on 7/3/19at 05:00; Admin Dose 1 TAB; Start 10/20/18 at 02:30 Albuterol/ Ipratropium (Duoneb) 3 ml Q6H RESP THERAPY HHN Last administered on 10/22/18at 08:09; Admin Dose 3 ML; Start 10/20/18 at 08:00 Multivitamins/ Minerals (Theragran-M) 1 tab DAILY PO Last administered on 10/22/18 08:33; Admin Dose 1 TAB; Start 10/20/18 at 09:00 Zinc Sulfate (Zinc Sulfate) 220 mg DAILY PO Last administered on 10/22/18at 08:32; Admin Dose 220 MG; Start 10/20/18 at 09:00 Dextrose/Sodium Chloride 1,000 ml @ 70 mls/hr [id number] IV ; Start 10/20/18 at 02:30 IV Flush (NS 3 ml) 3 ml PER PROTOCOL IV ; Start 10/20/18 at 02:30 Acetaminophen (Tylenol Supp) 650 mg Q6H PRN [place] .PAIN 1-3 OR TEMP; Start 10/20/18 at 02:30 Morphine Sulfate (morphine) 2 mg Q4H PRN IV .PAIN 7-10 Last administered on 10/22/18at 11:24; Admin Dose 2 MG; Start 10/20/18 at 02:30 Diagnostic Test (Pha) (Accu-Chek) 1 ea 02 XX Last administered on 10/22/18at 02:10; Admin Dose 1 EA; Start 10/21/18 at 02:00 Miscellaneous Information 1 ea NOTE XX ; Start 10/20/18 at 03:00 Glucose (Glutose) 15 gm Q15M PRN PO DECREASED GLUCOSE; Start 10/20/18 at 03:00 Glucose (Glutose) 22.5 gm Q15M PRN PO DECREASED GLUCOSE; Start 10/20/18 at 03:00 Dextrose (D50w Syringe) 25 ml Q15M PRN IV DECREASED GLUCOSE; Start 10/20/18 at 03:00 Dextrose (D50w Syringe) 50 ml Q15M PRN IV DECREASED GLUCOSE; Start 10/20/18 at 03:00 Glucagon (Glucagen) 1 mg Q15M PRN IM DECREASED GLUCOSE; Start 10/20/18 at 03:00 Glucose (Glutose) 15 gm Q15M PRN BUCCAL DECREASED GLUCOSE; Start 10/20/18 at 03:00 Ferrous Sulfate (Ferrous Sulfate (Ec)) 325 mg BID PO Last administered on 10/22/18at 08:32; Admin Dose 325 MG; Start 10/20/18 at 09:00 Lisinopril (Zestril) 20 mg DAILY PO Last administered on 10/22/18at 08:33; Admin Dose 20 MG; Start 10/20/18 at 09:00 Pantoprazole (Protonix Tab) 40 mg AC BREAKFAST PO Last administered on 10/22/18at 06:39; Admin Dose 40 MG; Start 10/20/18 at 07:00 Insulin Aspart (Novolog Insulin Pen) (Adult SC Insulin - Mild Algorithm)... AC MEALS AND BEDTIME SC Last administered on 10/22/18at 11:40; Admin Dose 1 UNIT; Start 10/21/18 at 07:00 Vancomycin HCl (Vanco Iv Per Pharmacy) VANCOMYCIN PER PHARMACY PER PROTOCOL XX ; Start 10/21/18 at 12:00 Vancomycin HCl 1.25 gm/Sodium Chloride 250 ml @ 83.333 mls/ hr Q24H IVPB Last administered on 10/22/18at 13:31; Admin Dose 83.333 MLS/HR; Start 10/21/18 at 14:00 Miscellaneous Information (*Rx Drug Level Order Reminder*) VANCO TR 10/24 AT 1300 1300 ONCE XX ; Start 10/24/18 at 13:00; Stop 10/24/18 at 13:01 Assessment/Plan Hospital Course (Demo Recall) IMPRESSION AND PLAN: 1. Chronic lung disease. 2. Cool aerosol with respiratory failure. 3. 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 4. Failure to thrive. 5. Possible acute on chronic infection PLAN: 1. Continue pulmonary toilet. 2. Bronchodilator. 3. Steroids. 4. Antibiotics. 5. DVT and GI prophylaxis. 5. Aspiration precautions DC okay from pulmonary standpoint VAUGHN NICHOLS MD, [facility] Oct 22, 2018 16:38
[2018-10-23] VITALS (8 sets, daily range): BP systolic 96–141; BP diastolic 60–78; PULSE 68–92; RESP 18–22
[2018-10-23] MEDS: ACCU-CHEK XX SCH (01:08)
[2018-10-23] MEDS: ALBUTEROL/IPRATROPIUM (NEB) 3 ML AMP HHN SCH ×4 (01:52→20:35)
[2018-10-23] MEDS: PANTOPRAZOLE (EC) 40 MG TAB PO SCH (06:40)
[2018-10-23] MEDS: HYDROCODONE/APAP (10/325) TAB GTB PRN ×2 (06:40→12:47)
[2018-10-23] MEDS: Insulin NOVOLOG SS MILD Algorithm (SS with meals and bedtime) SC SCH ×4 (07:00→21:00)
[2018-10-23] MEDS: DEXTROSE 5%-0.45% NACL 1,000 ML IV SCH (07:27)
[2018-10-23] MEDS: MULTIVITAMINS/MINERALS TAB PO SCH (08:22)
[2018-10-23] MEDS: ASCORBIC ACID 250 MG TAB PO SCH (08:22)
[2018-10-23] MEDS: ZINC SULFATE 220 MG CAP PO SCH (08:22)
[2018-10-23] MEDS: FERROUS SULFATE (EC) 325 MG TAB PO SCH ×2 (08:22→21:47)
[2018-10-23] MEDS: LISINOPRIL 20 MG TAB PO SCH (08:22)
[2018-10-23] MEDS: AMLODIPINE 10 MG TAB PO SCH (08:22)
[2018-10-23] MEDS: ENOXAPARIN 40 MG/0.4 ML SYG SC SCH (08:31)
--- NOTE | 2018-10-23 12:12 | CONS ---
Assessment/Plan Assessment/Plan Hospital Course (Demo Recall) ID PROGRESS NOTE CURRENT ABX: DAY # =>Vanco IV s/p Levaquin 10/22/18 0503 10/22/18 0503 24H INTERVAL SUMMARY * Sleeping, chronic resp failure, multiple admissions to various [facility] hospitals for recurrent COPD exacerbation and silent ASP PNA * Acute on chronic hypoxic resp failure w/severe bullous disease * Low grade temps on admission resolved, WBC elevated on steroids MICRO * 10/20/18 RESP CX (+) RESPIRATORY CULTURE Final Organism 1 PROTEUS MIRABILIS QUANTITY SCANT GROWTH Organism 2 PSEUDOMONAS AERUGINOSA QUANTITY 1+ P. MIRAB P.AERUG P.AERUG M.I.C. RX M.I.C. RX M.I.C. RX --------- --- --------- --- --------- --- AMIKACIN 4 S AMPICILLIN >=32 R AZTREONAM I CEFAZOLIN I CEFEPIME 16 I CEFOTAXIME S CEFTAZIDIME 8 S CIPROFLOXACIN >=4 R >=4 R GENTAMICIN <=1 S 4 S LEVOFLOXACIN >=8 R >=8 R MEROPENEM 0.19 S TOBRAMYCIN <=1 S <=1 S TRIMETHOPRIM/SULFAMETHOXAZOLE >=320 R PIPERACILLIN/TAZOBACTAM S -------- * 10/20/18 BCX (+) 1/2 bottles Organism 1 CORYNEBACTERIUM SPECIES * 10/22/18 BCx (-) 24H DIAGNOSTIC IMAGING * 10/22/18 CXR Mild decrease in right lower lung opacities, which may represent improving atelectasis on background of chronic interstitial changes. PHYSICAL EXAMINATION: GENERAL: VSS, NAD HEENT: AT, NC, NECK: Supple, CHEST: Rise symmetrical HEART: Pulse RRR ABDOMEN: EXTREMITIES: Warm, dry SKIN: No rash, no diaphoresis ID ASSESSMENT 67 yo M admit with: 1. SIRS vs early sepsis w/fevers, leukocytosis, tachycardia, SOB on admission * SKIN CONTAMINATED BCX ON ADMISSION = recurrent issue on prior admission * 10/20/18 BCX (+) 1/2 bottles Organism 1 CORYNEBACTERIUM SPECIES * 10/22/18 BCx (-) 24H 2. Acute on chronic respiratory failure 3. Aspiration pneumonitis suspected without full blown PNA * Recurrent silent aspiration see barium swallow results PRIOR ADMISSION 4. Advanced COPD emphysema w/bullous lung disease 5. Long-standing history of intermittent hemoptysis likely from underlying bronchiectasis. * (-)work up for MTB prior admission 6. Anemia INVASIVES: Trach, Midline ABX ALLERGY: KNDA CURRENT ABX: => Vanco IV + Merrem s/p Levaquin ID RECOMMENDATIONS/PLAN: 1. Continue Vanco 2. Add Merrem short term course for GNR ASP Pneumonitis = recurrent issue Consultation Date/Type/Reason Admit Date/Time Oct 20, 2018 at 02:04 Initial Consult Date Date/Time of Note DATE: 10/23/18 TIME: 12:12 Exam/Review of Systems Exam Vitals Vital Signs Date Temp Pulse Resp B/P (MAP) Pulse Ox O2 O2 Flow FiO2 Time Delivery Rate 10/23/18 98.0 86 20 100/62 100 11:26 (75) 10/23/18 Aerosol 5.0 28 08:45 Intake and Output 10/22/18 10/22/18 10/23/18 1515:00 23:00 07:00 IntakeIntake Total 600 ml 720 ml OutputOutput Total 300 ml 900 ml 925 ml BalanceBalance 300 ml -180 ml -925 ml Results Result Diagram: 10/22/18 0503 10/22/18 0503 Results 24hrs Laboratory Tests Test 10/22/18 17:15 10/22/18 21:55 10/23/18 08:20 10/23/18 11:43 Bedside Glucose 77 83 152 215 Medications Medication Current Medications Alprazolam (Xanax) 2 mg Q8H PRN GTB ANXIETY Last administered on 10/22/18at 11:52; Admin Dose 2 MG; Start 10/20/18 at 02:30 Amlodipine Besylate (Norvasc) 10 mg DAILY PO Last administered on 10/23/18at 08:22; Admin Dose 10 MG; Start 10/20/18 at 09:00 Ascorbic Acid (Vitamin C) 250 mg DAILY PO Last administered on 10/23/18 08:22; Admin Dose 250 MG; Start 10/20/18 at 09:00 Clonidine (Catapres) 0.1 mg TID GTB Last administered on 10/23/18 08:22; Admin Dose 0.1 MG; Start 10/20/18 at 09:00 Enoxaparin Sodium (Lovenox) 40 mg DAILY SC Last administered on 10/23/18 08:31; Admin Dose 40 MG; Start 10/20/18 at 09:00 Acetaminophen/ Hydrocodone Bitart ([place] ()) 1 tab Q6H PRN GTB MODERATE PAIN 4-6 Last administered on 10/23/18 06:40; Admin Dose 1 TAB; Start 10/20/18 at 02:30 Albuterol/ Ipratropium (Duoneb) 3 ml Q6H RESP THERAPY HHN Last administered on 10/23/18 08:49; Admin Dose 3 ML; Start 10/20/18 at 08:00 Multivitamins/ Minerals (Theragran-M) 1 tab DAILY PO Last administered on 10/23/18 08:22; Admin Dose 1 TAB; Start 10/20/18 at 09:00 Zinc Sulfate (Zinc Sulfate) 220 mg DAILY PO Last administered on 10/23/18 08:22; Admin Dose 220 MG; Start 10/20/18 at 09:00 IV Flush (NS 3 ml) 3 ml PER PROTOCOL IV ; Start 10/20/18 at 02:30 Acetaminophen (Tylenol Supp) 650 mg Q6H PRN [place] .PAIN 1-3 OR TEMP; Start 10/20/18 at 02:30 Morphine Sulfate (morphine) 2 mg Q4H PRN IV .PAIN 7-10 Last administered on 10/22/18 11:24; Admin Dose 2 MG; Start 10/20/18 at 02:30 Diagnostic Test (Pha) (Accu-Chek) 1 ea 02 XX Last administered on 10/22/18 02:10; Admin Dose 1 EA; Start 10/21/18 at 02:00 Miscellaneous Information 1 ea NOTE XX ; Start 10/20/18 at 03:00 Glucose (Glutose) 15 gm Q15M PRN PO DECREASED GLUCOSE; Start 10/20/18 at 03:00 Glucose (Glutose) 22.5 gm Q15M PRN PO DECREASED GLUCOSE; Start 10/20/18 at 03:00 Dextrose (D50w Syringe) 25 ml Q15M PRN IV DECREASED GLUCOSE; Start 10/20/18 at 03:00 Dextrose (D50w Syringe) 50 ml Q15M PRN IV DECREASED GLUCOSE; Start 10/20/18 at 03:00 Glucagon (Glucagen) 1 mg Q15M PRN IM DECREASED GLUCOSE; Start 10/20/18 at 03:00 Glucose (Glutose) 15 gm Q15M PRN BUCCAL DECREASED GLUCOSE; Start 10/20/18 at 03:00 Ferrous Sulfate (Ferrous Sulfate (Ec)) 325 mg BID PO Last administered on 10/23/18at 08:22; Admin Dose 325 MG; Start 10/20/18 at 09:00 Lisinopril (Zestril) 20 mg DAILY PO Last administered on 10/23/18at 08:22; Admin Dose 20 MG; Start 10/20/18 at 09:00 Pantoprazole (Protonix Tab) 40 mg AC BREAKFAST PO Last administered on 10/23/18at 06:40; Admin Dose 40 MG; Start 10/20/18 at 07:00 Insulin Aspart (Novolog Insulin Pen) (Adult SC Insulin - Mild Algorithm)... AC MEALS AND BEDTIME SC Last administered on 10/23/18at 11:47; Admin Dose 2 UNIT; Start 10/21/18 at 07:00 Vancomycin HCl (Vanco Iv Per Pharmacy) VANCOMYCIN PER PHARMACY PER PROTOCOL XX ; Start 10/21/18 at 12:00 Vancomycin HCl 1.25 gm/Sodium Chloride 250 ml @ 83.333 mls/ hr Q24H IVPB Last administered on 10/22/18at 13:31; Admin Dose 83.333 MLS/HR; Start 10/21/18 at 14:00 Miscellaneous Information (*Rx Drug Level Order Reminder*) VANCO TR 10/24 AT 1300 1300 ONCE XX ; Start 10/24/18 at 13:00; Stop 10/24/18 at 13:01 OJ ROMEO NP Oct 23, 2018 12:12
--- NOTE | 2018-10-23 13:48 | PN ---
Date/Time of Note Date/Time of Note DATE: 10/23/18 TIME: 13:44 Assessment/Plan VTE Prophylaxis Risk score (from Ns)>0 risk: 4 SCD applied (from Ns): Yes Pharmacological prophylaxis: LMWH Lines/Catheters IV Catheter Type [facility]from [facility] [place] Urinary Cath still in place: No Assessment/Plan Hospital Course Going assessment and plan 1. Acute on chronic COPD. -continue on breathing treatments. -Manufacturer'S Representative following 2. Mild dehydration. - improved 3. History of cystic lung disease. - Continue with breathing treatments. 4. Anemia. -Monitor H&H. 5. Hypertension. - Resume antihypertensives. 6. Transaminitis. - Etiology unknown. Monitor trend. - stable 7. Bacteremia - on abx - continue ID recommendations Disposition and plan. Continue with antibiotics per ID. Follow-up on labs. Will see for antibiotic regimen for possible outpatient setting. DC planning in progress Discussed POC with Dr. Ceja Result Diagram: 10/22/18 0503 10/22/18 0503 Results 24hrs Laboratory Tests Test 10/22/18 17:15 10/22/18 21:55 10/23/18 08:20 10/23/18 11:43 Bedside Glucose 77 83 152 215 Subjective 24 Hr Interval Summary Free Text/Dictation No respiratory distress seen. 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 Exam/Review of Systems Exam Vitals Vital Signs Date Temp Pulse Resp B/P (MAP) Pulse Ox O2 O2 Flow FiO2 Time Delivery Rate 10/23/18 98.0 86 20 100/62 100 11:26 (75) 10/23/18 Aerosol 5.0 28 08:45 Intake and Output 10/22/18 10/22/18 10/23/18 1515:00 23:00 07:00 IntakeIntake Total 600 ml 720 ml OutputOutput Total 300 ml 900 ml 925 ml BalanceBalance 300 ml -180 ml -925 ml Exam Constitutional: alert, oriented Psych: nl mood/affect Eyes: nl conjunctiva Neck: supple, non-tender Respiratory: diminished breath sounds Cardiovascular: other (regular rate ) Gastrointestinal: soft, non-tender Musculoskeletal: muscle weakness Neurological: nl mental status Results Results 24hrs Laboratory Tests Test 10/22/18 17:15 10/22/18 21:55 10/23/18 08:20 10/23/18 11:43 Bedside Glucose 77 83 152 215 Medications Medication Current Medications Alprazolam (Xanax) 2 mg Q8H PRN GTB ANXIETY Last administered on 10/22/18 11:52; Admin Dose 2 MG; Start 10/20/18 at 02:30 Amlodipine Besylate (Norvasc) 10 mg DAILY PO Last administered on 10/23/18 08:22; Admin Dose 10 MG; Start 10/20/18 at 09:00 Ascorbic Acid (Vitamin C) 250 mg DAILY PO Last administered on 10/23/18 08:22; Admin Dose 250 MG; Start 10/20/18 at 09:00 Clonidine (Catapres) 0.1 mg TID GTB Last administered on 10/23/18 08:22; Admin Dose 0.1 MG; Start 10/20/18 at 09:00 Enoxaparin Sodium (Lovenox) 40 mg DAILY SC Last administered on 10/23/18 08:31; Admin Dose 40 MG; Start 10/20/18 at 09:00 Acetaminophen/ Hydrocodone Bitart ([place] ()) 1 tab Q6H PRN GTB MODERATE PAIN 4-6 Last administered on 10/23/18 12:47; Admin Dose 1 TAB; Start 10/20/18 at 02:30 Albuterol/ Ipratropium (Duoneb) 3 ml Q6H RESP THERAPY HHN Last administered on 10/23/18 08:49; Admin Dose 3 ML; Start 10/20/18 at 08:00 Multivitamins/ Minerals (Theragran-M) 1 tab DAILY PO Last administered on 10/23/18 08:22; Admin Dose 1 TAB; Start 10/20/18 at 09:00 Zinc Sulfate (Zinc Sulfate) 220 mg DAILY PO Last administered on 10/23/18 08:22; Admin Dose 220 MG; Start 10/20/18 at 09:00 IV Flush (NS 3 ml) 3 ml PER PROTOCOL IV ; Start 10/20/18 at 02:30 Acetaminophen (Tylenol Supp) 650 mg Q6H PRN [place] .PAIN 1-3 OR TEMP; Start 10/20/18 at 02:30 Morphine Sulfate (morphine) 2 mg Q4H PRN IV .PAIN 7-10 Last administered on 10/22/18 11:24; Admin Dose 2 MG; Start 10/20/18 at 02:30 Diagnostic Test (Pha) (Accu-Chek) 1 ea 02 XX Last administered on 10/22/18at 02:10; Admin Dose 1 EA; Start 10/21/18 at 02:00 Miscellaneous Information 1 ea NOTE XX ; Start 10/20/18 at 03:00 Glucose (Glutose) 15 gm Q15M PRN PO DECREASED GLUCOSE; Start 10/20/18 at 03:00 Glucose (Glutose) 22.5 gm Q15M PRN PO DECREASED GLUCOSE; Start 10/20/18 at 03:00 Dextrose (D50w Syringe) 25 ml Q15M PRN IV DECREASED GLUCOSE; Start 10/20/18 at 03:00 Dextrose (D50w Syringe) 50 ml Q15M PRN IV DECREASED GLUCOSE; Start 10/20/18 at 03:00 Glucagon (Glucagen) 1 mg Q15M PRN IM DECREASED GLUCOSE; Start 10/20/18 at 03:00 Glucose (Glutose) 15 gm Q15M PRN BUCCAL DECREASED GLUCOSE; Start 10/20/18 at 03 :00 Ferrous Sulfate (Ferrous Sulfate (Ec)) 325 mg BID PO Last administered on 10/23/18at 08:22; Admin Dose 325 MG; Start 10/20/18 at 09:00 Lisinopril (Zestril) 20 mg DAILY PO Last administered on 10/23/18at 08:22; Admin Dose 20 MG; Start 10/20/18 at 09:00 Pantoprazole (Protonix Tab) 40 mg AC BREAKFAST PO Last administered on 10/23/18at 06:40; Admin Dose 40 MG; Start 10/20/18 at 07:00 Insulin Aspart (Novolog Insulin Pen) (Adult SC Insulin - Mild Algorithm)... AC MEALS AND BEDTIME SC Last administered on 10/23/18at 11:47; Admin Dose 2 UNIT; Start 10/21/18 at 07:00 Vancomycin HCl (Vanco Iv Per Pharmacy) VANCOMYCIN PER PHARMACY PER PROTOCOL XX ; Start 10/21/18 at 12:00 Vancomycin HCl 1.25 gm/Sodium Chloride 250 ml @ 83.333 mls/ hr Q24H IVPB Last administered on 10/22/18at 13:31; Admin Dose 83.333 MLS/HR; Start 10/21/18 at 14:00 Miscellaneous Information (*Rx Drug Level Order Reminder*) VANCO TR 10/24 AT 1300 1300 ONCE XX ; Start 10/24/18 at 13:00; Stop 10/24/18 at 13:01 TAINA HALLMAN NP Oct 23, 2018 13:48
--- NOTE | 2018-10-23 14:20 | CONS ---
Consult Date/Type/Reason Admit Date/Time Oct 20, 2018 at 02:04 Initial Consult Date Type of Consultation: Pulm Date/Time of Note DATE: 10/23/18 TIME: 14:18 Subjective No events. Objective Vitals Vital Signs Date Temp Pulse Resp B/P (MAP) Pulse Ox O2 O2 Flow FiO2 Time Delivery Rate 10/23/18 98.0 86 20 100/62 100 11:26 (75) 10/23/18 Aerosol 5.0 28 08:45 Intake and Output 10/22/18 10/22/18 10/23/18 1515:00 23:00 07:00 IntakeIntake Total 600 ml 720 ml OutputOutput Total 300 ml 900 ml 925 ml BalanceBalance 300 ml -180 ml -925 ml Exam NECK: Trach site is clean and intact. CARDIAC: S1, S2. No added sounds or murmur. CHEST: Diminished air entry bilaterally. ABDOMEN: Soft, nontender, no guarding, no rebound. EXTREMITIES: No cyanosis, clubbing or edema. NEUROLOGIC: Grossly intact. No focal deficits. Results/Medications Result Diagram: 10/22/18 0503 10/22/18 0503 Results 24 hrs Laboratory Tests Test 10/22/18 17:15 10/22/18 21:55 10/23/18 08:20 10/23/18 11:43 Bedside Glucose 77 83 152 215 Home Meds Active Scripts Zinc Sulfate* (Zinc Sulfate*) 220 Mg Cap, 220 MG PO DAILY for 30 Days, CAP Prov:CABA,MALICK V. CALL OR CONTACT CENTRE OPERATOR 09/16/18 Enoxaparin Sodium* (Enoxaparin Sodium*) 40 Mg/0.4 Ml Syringe, 40 MG SC DAILY for 30 Days Prov:CABA,MALICK V. CALL OR CONTACT CENTRE OPERATOR 09/16/18 Ferrous Sulfate* (Ferrous Sulfate*) 325 Mg Tabec, 325 MG PO BID, #60 TAB Prov:CABA,MALICK V. CALL OR CONTACT CENTRE OPERATOR 09/16/18 Ciprofloxacin Hcl* (Ciprofloxacin Hcl*) 500 Mg Tablet, 500 MG PO BID for 10 Days, #20 TAB Prov:CABA,MALICK V. CALL OR CONTACT CENTRE OPERATOR 09/16/18 Multivits,Ca,Minerals/Iron/FA (Thera M Plus Tablet) 1 Each Tablet, 1 TAB PO DAILY for 30 Days, TAB Prov:CABA,MALICK V. CALL OR CONTACT CENTRE OPERATOR 09/16/18 Ascorbic Acid (Vitamin C) 250 Mg Tab, 250 MG PO DAILY for 30 Days, TAB Prov:MALICK CABA V. CALL OR CONTACT CENTRE OPERATOR 09/16/18 Prednisone* (Prednisone*) 20 Mg Tab, 40 MG PO DAILY for 3 Days, TAB Prov:MALICK CABA V. CALL OR CONTACT CENTRE OPERATOR 09/16/18 Clonidine Hcl* (Clonidine Hcl*) 0.1 Mg Tab, 0.1 MG GTB TID for 30 Days, TAB Prov:MALICK CABA V. CALL OR CONTACT CENTRE OPERATOR 09/16/18 Lisinopril* (Lisinopril*) 20 Mg Tablet, 20 MG PO DAILY for 30 Days, #30 TAB Prov:FRANKO SAUCEDA MD 08/19/18 Amlodipine Besylate* (Amlodipine Besylate*) 10 Mg Tablet, 10 MG PO DAILY for 30 Days, #30 TAB Prov:FRANKO SAUCEDA MD 08/19/18 Ipratropium-Albuterol (Ipratropium-Albuterol) 0.5-3 Mg/3 Ml Ampul.neb, 3 ML HHN Q6H RESP THERAPY for 30 Days, #120 DOSE Prov:FRANKO SAUCEDA MD 08/19/18 Reported Medications Pantoprazole* (Pantoprazole*) 40 Mg Tablet.dr, 40 MG GTB AC BREAKFAST, TAB 07/17/18 Alprazolam* (Xanax*) 2 Mg Tablet, 2 MG GTB Q8H PRN for ANXIETY, TAB 07/17/18 Hydrocodone/Acetaminophen ([place] 10-325 Tablet) 1 Each Tablet, 1 EACH GTB Q6H PRN for NEEDED, TAB 07/17/18 Medications Current Medications Alprazolam (Xanax) 2 mg Q8H PRN GTB ANXIETY Last administered on 10/22/18at 11:52; Admin Dose 2 MG; Start 10/20/18 at 02:30 Amlodipine Besylate (Norvasc) 10 mg DAILY PO Last administered on 10/23/18at 08:22; Admin Dose 10 MG; Start 10/20/18 at 09:00 Ascorbic Acid (Vitamin C) 250 mg DAILY PO Last administered on 10/23/18at 08:22; Admin Dose 250 MG; Start 10/20/18 at 09:00 Clonidine (Catapres) 0.1 mg TID GTB Last administered on 10/23/18 08:22; Admin Dose 0.1 MG; Start 10/20/18 at 09:00 Enoxaparin Sodium (Lovenox) 40 mg DAILY SC Last administered on 10/23/18 08:31; Admin Dose 40 MG; Start 10/20/18 at 09:00 Acetaminophen/ Hydrocodone Bitart ([place] (10/325)) 1 tab Q6H PRN GTB MODERATE PAIN 4-6 Last administered on 10/23/18 12:47; Admin Dose 1 TAB; Start 10/20/18 at 02:30 Albuterol/ Ipratropium (Duoneb) 3 ml Q6H RESP THERAPY HHN Last administered on 10/23/18 08:49; Admin Dose 3 ML; Start 10/20/18 at 08:00 Multivitamins/ Minerals (Theragran-M) 1 tab DAILY PO Last administered on 10/23/18 08:22; Admin Dose 1 TAB; Start 10/20/18 at 09:00 Zinc Sulfate (Zinc Sulfate) 220 mg DAILY PO Last administered on 10/23/18 08:22; Admin Dose 220 MG; Start 10/20/18 at 09:00 IV Flush (NS 3 ml) 3 ml PER PROTOCOL IV ; Start 10/20/18 at 02:30 Acetaminophen (Tylenol Supp) 650 mg Q6H PRN [place] .PAIN 1-3 OR TEMP; Start 10/20/18 at 02:30 Morphine Sulfate (morphine) 2 mg Q4H PRN IV .PAIN 7-10 Last administered on 10/22/18 11:24; Admin Dose 2 MG; Start 10/20/18 at 02:30 Diagnostic Test (Pha) (Accu-Chek) 1 ea 02 XX Last administered on 10/22/18 02:10; Admin Dose 1 EA; Start 10/21/18 at 02:00 Miscellaneous Information 1 ea NOTE XX ; Start 10/20/18 at 03:00 Glucose (Glutose) 15 gm Q15M PRN PO DECREASED GLUCOSE; Start 10/20/18 at 03:00 Glucose (Glutose) 22.5 gm Q15M PRN PO DECREASED GLUCOSE; Start 10/20/18 at 03:00 Dextrose (D50w Syringe) 25 ml Q15M PRN IV DECREASED GLUCOSE; Start 10/20/18 at 03:00 Dextrose (D50w Syringe) 50 ml Q15M PRN IV DECREASED GLUCOSE; Start 10/20/18 at 03:00 Glucagon (Glucagen) 1 mg Q15M PRN IM DECREASED GLUCOSE; Start 10/20/18 at 03:00 Glucose (Glutose) 15 gm Q15M PRN BUCCAL DECREASED GLUCOSE; Start 10/20/18 at 03:00 Ferrous Sulfate (Ferrous Sulfate (Ec)) 325 mg BID PO Last administered on 10/23/18at 08:22; Admin Dose 325 MG; Start 10/20/18 at 09:00 Lisinopril (Zestril) 20 mg DAILY PO Last administered on 10/23/18at 08:22; Admin Dose 20 MG; Start 10/20/18 at 09:00 Pantoprazole (Protonix Tab) 40 mg AC BREAKFAST PO Last administered on 10/23/18at 06:40; Admin Dose 40 MG; Start 10/20/18 at 07:00 Insulin Aspart (Novolog Insulin Pen) (Adult SC Insulin - Mild Algorithm)... AC MEALS AND BEDTIME SC Last administered on 10/23/18at 11:47; Admin Dose 2 UNIT; Start 10/21/18 at 07:00 Vancomycin HCl (Vanco Iv Per Pharmacy) VANCOMYCIN PER PHARMACY PER PROTOCOL XX ; Start 10/21/18 at 12:00 Vancomycin HCl 1.25 gm/Sodium Chloride 250 ml @ 83.333 mls/ hr Q24H IVPB Last administered on 10/22/18at 13:31; Admin Dose 83.333 MLS/HR; Start 10/21/18 at 14:00 Miscellaneous Information (*Rx Drug Level Order Reminder*) VANCO TR 10/24 AT 1300 1300 ONCE XX ; Start 10/24/18 at 13:00; Stop 10/24/18 at 13:01 Assessment/Plan Assessment/Plan (Daily) IMP: 1. Chronic lung disease with chronic hypercapnic/hypoxemic resp failure 2. Acute exacerbation of #1 3. 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 4. Failure to thrive. 5. Possible acute on chronic infection RECS: 1. Continue pulmonary toilet. 2. Bronchodilator. 3. Steroids. 4. Antibiotics. 5. DVT and GI prophylaxis. 5. Aspiration precautions AZRA SALDANA MD Oct 23, 2018 14:20
[2018-10-23] MEDS: morphine 2 MG INJ IV PRN ×2 (15:20→23:32)
[2018-10-23] MEDS: VANCOMYCIN HCL 1.25 GM in SOD CHLORIDE 0.9% 250 ML IVPB SCH (15:20)
[2018-10-23] MEDS: MEROPENEM 1 GM/50ML(PMX) 50 ML IVPB SCH (18:34)
[2018-10-24] VITALS (9 sets, daily range): BP systolic 98–131; BP diastolic 56–67; PULSE 84–91; RESP 16–19
[2018-10-24] MEDS: ALBUTEROL/IPRATROPIUM (NEB) 3 ML AMP HHN SCH ×4 (01:00→19:35)
[2018-10-24] MEDS: ACCU-CHEK XX SCH (01:09)
[2018-10-24] MEDS: HYDROCODONE/APAP (10/325) TAB GTB PRN (02:48)
[2018-10-24] MEDS: morphine 2 MG INJ IV PRN ×4 (06:00→22:30)
[2018-10-24] MEDS: MEROPENEM 1 GM/50ML(PMX) 50 ML IVPB SCH ×2 (06:00→18:39)
[2018-10-24] MEDS: PANTOPRAZOLE (EC) 40 MG TAB PO SCH (06:00)
[2018-10-24] MEDS: Insulin NOVOLOG SS MILD Algorithm (SS with meals and bedtime) SC SCH ×4 (07:00→21:00)
[2018-10-24] MEDS: LISINOPRIL 20 MG TAB PO SCH (09:00)
[2018-10-24] MEDS: AMLODIPINE 10 MG TAB PO SCH (09:00)
[2018-10-24] MEDS: FERROUS SULFATE (EC) 325 MG TAB PO SCH ×2 (10:15→22:24)
[2018-10-24] MEDS: ASCORBIC ACID 250 MG TAB PO SCH (10:15)
[2018-10-24] MEDS: MULTIVITAMINS/MINERALS TAB PO SCH (10:15)
[2018-10-24] MEDS: ZINC SULFATE 220 MG CAP PO SCH (10:22)
[2018-10-24] MEDS: ENOXAPARIN 40 MG/0.4 ML SYG SC SCH (10:24)
--- NOTE | 2018-10-24 13:27 | CONS ---
Consult Date/Type/Reason Admit Date/Time Oct 20, 2018 at 02:04 Initial Consult Date Type of Consult Pulmonary Date/Time of Note DATE: 10/24/18 TIME: 13:27 Subjective Patient comfortable this morning less shortness of breath. Objective Vital Signs Date Temp Pulse Resp B/P (MAP) Pulse Ox O2 O2 Flow FiO2 Time Delivery Rate 10/24/18 88 18 97 Aerosol 5.0 28 13:16 10/24/18 98.3 131/67 11:58 (88) Intake and Output 10/23/18 10/23/18 10/24/18 1414:59 22:59 06:59 IntakeIntake Total 765 ml 430 ml OutputOutput Total 1300 ml 400 ml BalanceBalance -535 ml 30 ml Exam GENERAL: VITAL SIGNS: per chart NECK: Supple. No JVD or lymphadenopathy. CARDIAC EXAM: S1, S2. No added sounds or murmurs. CHEST: Diminished air entry bilaterally ABDOMEN: Soft, nontender. No guarding or rebound. EXTREMITIES: No cyanosis, clubbing or edema. NEUROLOGIC: Generalized weakness. No focal deficits. Vent Setting Fraction of Inspired Oxygen pe: 28 Results/Medications Result Diagram: 10/24/1827 10/24/18 0527 Results 24 hrs Laboratory Tests Test 10/23/18 14:22 10/23/18 16:51 10/23/18 21:46 10/24/18 05:27 Sodium Level 138 139 Potassium Level 4.3 4.1 Chloride Level 97 98 Carbon Dioxide Level 34 H 37 H Anion Gap 7 4 L Blood Urea Nitrogen 19 16 Creatinine 0.87 0.81 Est Glomerular Filtrat > 60 > 60 Rate mL/min Glucose Level 110 95 Calcium Level 8.7 8.8 Bedside Glucose 104 129 White Blood Count 6.7 # Red Blood Count 3.83 L Hemoglobin 9.3 L Hematocrit 31.6 L Mean Corpuscular Volume 82.5 Mean Corpuscular 24.3 L Hemoglobin Mean Corpuscular 29.4 L Hemoglobin Concent Red Cell Distribution 22.5 H Width Platelet Count 199 Mean Platelet Volume 10.2 Immature Granulocytes % 0.500 H Neutrophils % 71.2 Lymphocytes % 13.7 L Monocytes % 11.7 H Eosinophils % 2.7 Basophils % 0.2 Nucleated Red Blood 0.0 Cells % Immature Granulocytes # 0.030 Neutrophils # 4.8 Lymphocytes # 0.9 Monocytes # 0.8 Eosinophils # 0.2 Basophils # 0.0 Nucleated Red Blood 0.0 Cells # Test 10/24/18 07:58 10/24/18 12:09 Bedside Glucose 96 144 Medications Current Medications Alprazolam (Xanax) 2 mg Q8H PRN GTB ANXIETY Last administered on 10/22/18 11:52; Admin Dose 2 MG; Start 10/20/18 at 02:30 Amlodipine Besylate (Norvasc) 10 mg DAILY PO Last administered on 10/23/18 08:22; Admin Dose 10 MG; Start 10/20/18 at 09:00 Ascorbic Acid (Vitamin C) 250 mg DAILY PO Last administered on 10/24/18 10:15; Admin Dose 250 MG; Start 10/20/18 at 09:00 Clonidine (Catapres) 0.1 mg TID GTB Last administered on 10/23/18 21:47; Admin Dose 0.1 MG; Start 10/20/18 at 09:00 Enoxaparin Sodium (Lovenox) 40 mg DAILY SC Last administered on 10/24/18 10:24; Admin Dose 40 MG; Start 10/20/18 at 09:00 Acetaminophen/ Hydrocodone Bitart ([place] (10)) 1 tab Q6H PRN GTB MODERATE PAIN 4-6 Last administered on 10/24/18 02:48; Admin Dose 1 TAB; Start 10/20/18 at 02:30 Albuterol/ Ipratropium (Duoneb) 3 ml Q6H RESP THERAPY HHN Last administered on 10/24/18 13:16; Admin Dose 3 ML; Start 10/20/18 at 08:00 Multivitamins/ Minerals (Theragran-M) 1 tab DAILY PO Last administered on 10/24/18 10:15; Admin Dose 1 TAB; Start 10/20/18 at 09:00 Zinc Sulfate (Zinc Sulfate) 220 mg DAILY PO Last administered on 10/24/18 10:22; Admin Dose 220 MG; Start 10/20/18 at 09:00 IV Flush (NS 3 ml) 3 ml PER PROTOCOL IV ; Start 10/20/18 at 02:30 Acetaminophen (Tylenol Supp) 650 mg Q6H PRN [place] .PAIN 1-3 OR TEMP; Start 10/20/18 at 02:30 Morphine Sulfate (morphine) 2 mg Q4H PRN IV .PAIN 7-10 Last administered on 10/24/18at 10:55; Admin Dose 2 MG; Start 10/20/18 at 02:30 Diagnostic Test (Pha) (Accu-Chek) 1 ea 02 XX Last administered on 10/22/18at 02:10; Admin Dose 1 EA; Start 10/21/18 at 02:00 Miscellaneous Information 1 ea NOTE XX ; Start 10/20/18 at 03:00 Glucose (Glutose) 15 gm Q15M PRN PO DECREASED GLUCOSE; Start 10/20/18 at 03:00 Glucose (Glutose) 22.5 gm Q15M PRN PO DECREASED GLUCOSE; Start 10/20/18 at 03:00 Dextrose (D50w Syringe) 25 ml Q15M PRN IV DECREASED GLUCOSE; Start 10/20/18 at 03:00 Dextrose (D50w Syringe) 50 ml Q15M PRN IV DECREASED GLUCOSE; Start 10/20/18 at 03:00 Glucagon (Glucagen) 1 mg Q15M PRN IM DECREASED GLUCOSE; Start 10/20/18 at 03:00 Glucose (Glutose) 15 gm Q15M PRN BUCCAL DECREASED GLUCOSE; Start 10/20/18 at 03:00 Ferrous Sulfate (Ferrous Sulfate (Ec)) 325 mg BID PO Last administered on 10/24/18at 10:15; Admin Dose 325 MG; Start 10/20/18 at 09:00 Lisinopril (Zestril) 20 mg DAILY PO Last administered on 10/23/18at 08:22; Admin Dose 20 MG; Start 10/20/18 at 09:00 Pantoprazole (Protonix Tab) 40 mg AC BREAKFAST PO Last administered on 10/24/18at 06:00; Admin Dose 40 MG; Start 10/20/18 at 07:00 Insulin Aspart (Novolog Insulin Pen) (Adult SC Insulin - Mild Algorithm)... AC MEALS AND BEDTIME SC Last administered on 10/24/18at 12:14; Admin Dose 1 UNIT; Start 10/21/18 at 07:00 Vancomycin HCl (Vanco Iv Per Pharmacy) VANCOMYCIN PER PHARMACY PER PROTOCOL XX ; Start 10/21/18 at 12:00 Vancomycin HCl 1.25 gm/Sodium Chloride 250 ml @ 83.333 mls/ hr Q24H IVPB Last administered on 10/23/18at 15:20; Admin Dose 83.333 MLS/HR; Start 10/21/18 at 14:00 Meropenem/Sodium Chloride 50 ml @ 100 mls/hr Q12H IVPB Last administered on 10/24/18at 06:00; Admin Dose 100 MLS/HR; Start 10/23/18 at 18:30 Assessment/Plan Hospital Course (Demo Recall) IMPRESSION AND PLAN: 1. Chronic lung disease. 2. Cool aerosol with respiratory failure. 3. 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 4. Failure to thrive. 5. Possible acute on chronic infection PLAN: 1. Continue pulmonary toilet. 2. Bronchodilator. 3. Steroids. 4. Antibiotics. 5. DVT and GI prophylaxis. 5. Aspiration precautions DC okay from pulmonary standpoint VAUGHN NICHOLS MD, [facility] Oct 24, 2018 13:27
--- NOTE | 2018-10-24 13:43 | PN ---
Date/Time of Note Date/Time of Note DATE: 10/24/18 TIME: 13:40 Assessment/Plan VTE Prophylaxis Risk score (from Ns)>0 risk: 4 SCD applied (from Ns): Yes Pharmacological prophylaxis: LMWH Lines/Catheters IV Catheter Type (from [facility] [place] Urinary Cath still in place: No Assessment/Plan Hospital Course Going assessment and plan 1. Acute on chronic COPD. -continue on breathing treatments. -Planner/Scheduler following 2. Mild dehydration. - improved 3. History of cystic lung disease. - Continue with breathing treatments. 4. Anemia. -Monitor H&H. 5. Hypertension. - Resume antihypertensives. 6. Transaminitis. - Etiology unknown. Monitor trend. - stable 7. Bacteremia - on abx - continue ID recommendations Disposition and plan. Continue with antibiotics per ID. appears to be improving. will f/u correctional case manager for d/c home vs. snf Discussed POC with Dr. Ceja Result Diagram: 10/24/18 0527 10/24/1827 Results 24hrs Laboratory Tests Test 10/23/18 14:22 10/23/18 16:51 10/23/18 21:46 10/24/18 05:27 Sodium Level 138 139 Potassium Level 4.3 4.1 Chloride Level 97 98 Carbon Dioxide Level 34 H 37 H Anion Gap 7 4 L Blood Urea Nitrogen 19 16 Creatinine 0.87 0.81 Est Glomerular Filtrat > 60 > 60 Rate mL/min Glucose Level 110 95 Calcium Level 8.7 8.8 Bedside Glucose 104 129 White Blood Count 6.7 # Red Blood Count 3.83 L Hemoglobin 9.3 L Hematocrit 31.6 L Mean Corpuscular Volume 82.5 Mean Corpuscular 24.3 L Hemoglobin Mean Corpuscular 29.4 L Hemoglobin Concent Red Cell Distribution 22.5 H Width Platelet Count 199 Mean Platelet Volume 10.2 Immature Granulocytes % 0.500 H Neutrophils % 71.2 Lymphocytes % 13.7 L Monocytes % 11.7 H Eosinophils % 2.7 Basophils % 0.2 Nucleated Red Blood 0.0 Cells % Immature Granulocytes # 0.030 Neutrophils # 4.8 Lymphocytes # 0.9 Monocytes # 0.8 Eosinophils # 0.2 Basophils # 0.0 Nucleated Red Blood 0.0 Cells # Test 10/24/18 07:58 10/24/18 12:09 Bedside Glucose 96 144 Subjective 24 Hr Interval Summary Free Text/Dictation comfortable. no s/s of distress Exam/Review of Systems Exam Vitals Vital Signs Date Temp Pulse Resp B/P (MAP) Pulse Ox O2 O2 Flow FiO2 Time Delivery Rate 10/24/18 88 18 97 Aerosol 5.0 28 13:16 10/24/18 98.3 131/67 11:58 (88) Intake and Output 10/23/18 10/23/18 10/24/18 1515:00 23:00 07:00 IntakeIntake Total 765 ml 430 ml OutputOutput Total 1300 ml 400 ml BalanceBalance -535 ml 30 ml Exam Constitutional: alert, oriented Psych: nl mood/affect Eyes: nl conjunctiva Neck: supple, non-tender Respiratory: diminished breath sounds Cardiovascular: other (regular rate ) Gastrointestinal: soft, non-tender Musculoskeletal: muscle weakness Neurological: nl mental status Results Results 24hrs Laboratory Tests Test 10/23/18 14:22 10/23/18 16:51 10/23/18 21:46 10/24/18 05:27 Sodium Level 138 139 Potassium Level 4.3 4.1 Chloride Level 97 98 Carbon Dioxide Level 34 H 37 H Anion Gap 7 4 L Blood Urea Nitrogen 19 16 Creatinine 0.87 0.81 Est Glomerular Filtrat > 60 > 60 Rate mL/min Glucose Level 110 95 Calcium Level 8.7 8.8 Bedside Glucose 104 129 White Blood Count 6.7 # Red Blood Count 3.83 L Hemoglobin 9.3 L Hematocrit 31.6 L Mean Corpuscular Volume 82.5 Mean Corpuscular 24.3 L Hemoglobin Mean Corpuscular 29.4 L Hemoglobin Concent Red Cell Distribution 22.5 H Width Platelet Count 199 Mean Platelet Volume 10.2 Immature Granulocytes % 0.500 H Neutrophils % 71.2 Lymphocytes % 13.7 L Monocytes % 11.7 H Eosinophils % 2.7 Basophils % 0.2 Nucleated Red Blood 0.0 Cells % Immature Granulocytes # 0.030 Neutrophils # 4.8 Lymphocytes # 0.9 Monocytes # 0.8 Eosinophils # 0.2 Basophils # 0.0 Nucleated Red Blood 0.0 Cells # Test 10/24/18 07:58 10/24/18 12:09 Bedside Glucose 96 144 Medications Medication Current Medications Alprazolam (Xanax) 2 mg Q8H PRN GTB ANXIETY Last administered on 10/22/18at 11:52; Admin Dose 2 MG; Start 10/20/18 at 02:30 Amlodipine Besylate (Norvasc) 10 mg DAILY PO Last administered on 10/23/18 08:22; Admin Dose 10 MG; Start 10/20/18 at 09:00 Ascorbic Acid (Vitamin C) 250 mg DAILY PO Last administered on 10/24/18 10:15; Admin Dose 250 MG; Start 10/20/18 at 09:00 Clonidine (Catapres) 0.1 mg TID GTB Last administered on 10/23/18 21:47; Admin Dose 0.1 MG; Start 10/20/18 at 09:00 Enoxaparin Sodium (Lovenox) 40 mg DAILY SC Last administered on 10/24/18 10:24; Admin Dose 40 MG; Start 10/20/18 at 09:00 Acetaminophen/ Hydrocodone Bitart ([place] ()) 1 tab Q6H PRN GTB MODERATE PAIN 4-6 Last administered on 10/24/18 02:48; Admin Dose 1 TAB; Start 10/20/18 at 02:30 Albuterol/ Ipratropium (Duoneb) 3 ml Q6H RESP THERAPY HHN Last administered on 10/24/18 13:16; Admin Dose 3 ML; Start 10/20/18 at 08:00 Multivitamins/ Minerals (Theragran-M) 1 tab DAILY PO Last administered on 10/24/18 10:15; Admin Dose 1 TAB; Start 10/20/18 at 09:00 Zinc Sulfate (Zinc Sulfate) 220 mg DAILY PO Last administered on 10/24/18 10:22; Admin Dose 220 MG; Start 10/20/18 at 09:00 IV Flush (NS 3 ml) 3 ml PER PROTOCOL IV ; Start 10/20/18 at 02:30 Acetaminophen (Tylenol Supp) 650 mg Q6H PRN [place] .PAIN 1-3 OR TEMP; Start 10/20/18 at 02:30 Morphine Sulfate (morphine) 2 mg Q4H PRN IV .PAIN 7-10 Last administered on 10/24/18 10:55; Admin Dose 2 MG; Start 10/20/18 at 02:30 Diagnostic Test (Pha) (Accu-Chek) 1 ea 02 XX Last administered on 7/3/19at 02:10; Admin Dose 1 EA; Start 10/21/18 at 02:00 Miscellaneous Information 1 ea NOTE XX ; Start 10/20/18 at 03:00 Glucose (Glutose) 15 gm Q15M PRN PO DECREASED GLUCOSE; Start 10/20/18 at 03:00 Glucose (Glutose) 22.5 gm Q15M PRN PO DECREASED GLUCOSE; Start 10/20/18 at 03:00 Dextrose (D50w Syringe) 25 ml Q15M PRN IV DECREASED GLUCOSE; Start 10/20/18 at 03:00 Dextrose (D50w Syringe) 50 ml Q15M PRN IV DECREASED GLUCOSE; Start 10/20/18 at 03:00 Glucagon (Glucagen) 1 mg Q15M PRN IM DECREASED GLUCOSE; Start 10/20/18 at 03:00 Glucose (Glutose) 15 gm Q15M PRN BUCCAL DECREASED GLUCOSE; Start 10/20/18 at 03:00 Ferrous Sulfate (Ferrous Sulfate (Ec)) 325 mg BID PO Last administered on 10/24/18at 10:15; Admin Dose 325 MG; Start 10/20/18 at 09:00 Lisinopril (Zestril) 20 mg DAILY PO Last administered on 10/23/18at 08:22; Admin Dose 20 MG; Start 10/20/18 at 09:00 Pantoprazole (Protonix Tab) 40 mg AC BREAKFAST PO Last administered on 10/24/18at 06:00; Admin Dose 40 MG; Start 10/20/18 at 07:00 Insulin Aspart (Novolog Insulin Pen) (Adult SC Insulin - Mild Algorithm)... AC MEALS AND BEDTIME SC Last administered on 10/24/18at 12:14; Admin Dose 1 UNIT; Start 10/21/18 at 07:00 Vancomycin HCl (Vanco Iv Per Pharmacy) VANCOMYCIN PER PHARMACY PER PROTOCOL XX ; Start 10/21/18 at 12:00 Vancomycin HCl 1.25 gm/Sodium Chloride 250 ml @ 83.333 mls/ hr Q24H IVPB Last administered on 10/23/18at 15:20; Admin Dose 83.333 MLS/HR; Start 10/21/18 at 14:00 Meropenem/Sodium Chloride 50 ml @ 100 mls/hr Q12H IVPB Last administered on 10/24/18at 06:00; Admin Dose 100 MLS/HR; Start 10/23/18 at 18:30 TAINA HALLMAN NP Oct 24, 2018 13:43
--- NOTE | 2018-10-24 14:41 | CONS ---
Assessment/Plan Assessment/Plan Hospital Course (Demo Recall) ID PROGRESS NOTE CURRENT ABX: DAY # =>Vanco IV + Merrem s/p Levaquin 24H INTERVAL SUMMARY * MUCH IMPROVED ON ABX * Sleeping, chronic resp failure, multiple admissions to various [facility] hospitals for recurrent COPD exacerbation and silent ASP PNA * Acute on chronic hypoxic resp failure w/severe bullous disease * Low grade temps on admission resolved, WBC elevated on steroids MICRO * 10/20/18 RESP CX (+) RESPIRATORY CULTURE Final Organism 1 PROTEUS MIRABILIS QUANTITY SCANT GROWTH Organism 2 PSEUDOMONAS AERUGINOSA QUANTITY 1+ P. MIRAB P.AERUG P.AERUG M.I.C. RX M.I.C. RX M.I.C. RX --------- --- --------- --- --------- --- AMIKACIN 4 S AMPICILLIN >=32 R AZTREONAM I CEFAZOLIN I CEFEPIME 16 I CEFOTAXIME S CEFTAZIDIME 8 S CIPROFLOXACIN >=4 R >=4 R GENTAMICIN <=1 S 4 S LEVOFLOXACIN >=8 R >=8 R MEROPENEM 0.19 S TOBRAMYCIN <=1 S <=1 S TRIMETHOPRIM/SULFAMETHOXAZOLE >=320 R PIPERACILLIN/TAZOBACTAM S * 10/20/18 BCX (+) 1/2 bottles Organism 1 CORYNEBACTERIUM SPECIES * 10/22/18 BCx (-) 24H DIAGNOSTIC IMAGING * 10/22/18 CXR Mild decrease in right lower lung opacities, which may represent improving atelectasis on background of chronic interstitial changes. PHYSICAL EXAMINATION: GENERAL: VSS, NAD HEENT: AT, NC, NECK: Supple, CHEST: Rise symmetrical HEART: Pulse RRR ABDOMEN: EXTREMITIES: Warm, dry SKIN: No rash, no diaphoresis ID ASSESSMENT 67 yo M admit with: 1. SIRS vs early sepsis w/fevers, leukocytosis, tachycardia, SOB on admission * SKIN CONTAMINATED BCX ON ADMISSION = recurrent issue on prior admission * 10/20/18 BCX (+) 1/2 bottles Organism 1 CORYNEBACTERIUM SPECIES * 10/22/18 BCx (-) 24H 2. Acute on chronic respiratory failure 3. Aspiration pneumonitis suspected without full blown PNA * Recurrent silent aspiration see barium swallow results PRIOR ADMISSION 4. Advanced COPD emphysema w/bullous lung disease 5. Long-standing history of intermittent hemoptysis likely from underlying bronchiectasis. * (-)work up for MTB prior admission 6. Anemia INVASIVES: Trach, Midline ABX ALLERGY: KNDA CURRENT ABX: => Vanco IV + Merrem s/p Levaquin ID RECOMMENDATIONS/PLAN: 1. DC Vanco 2. MAY DC BACK TO [facility] X 5 DAYS = short term course for GNR ASP Pneumonitis = recurrent issue Consultation Date/Type/Reason Admit Date/Time Oct 20, 2018 at 02:04 Initial Consult Date Date/Time of Note DATE: 10/24/18 TIME: 14:40 Exam/Review of Systems Exam Vitals Vital Signs Date Temp Pulse Resp B/P (MAP) Pulse Ox O2 O2 Flow FiO2 Time Delivery Rate 10/24/18 88 18 97 Aerosol 5.0 28 13:16 10/24/18 98.3 131/67 11:58 (88) Intake and Output 10/23/18 10/23/18 10/24/18 1515:00 23:00 07:00 IntakeIntake Total 765 ml 430 ml OutputOutput Total 1300 ml 400 ml BalanceBalance -535 ml 30 ml Results Result Diagram: 10/24/18 0527 10/24/18 0527 Results 24hrs Laboratory Tests Test 10/23/18 16:51 10/23/18 21:46 10/24/18 05:27 10/24/18 07:58 Bedside Glucose 104 129 96 White Blood Count 6.7 # Red Blood Count 3.83 L Hemoglobin 9.3 L Hematocrit 31.6 L Mean Corpuscular Volume 82.5 Mean Corpuscular 24.3 L Hemoglobin Mean Corpuscular 29.4 L Hemoglobin Concent Red Cell Distribution 22.5 H Width Platelet Count 199 Mean Platelet Volume 10.2 Immature Granulocytes % 0.500 H Neutrophils % 71.2 Lymphocytes % 13.7 L Monocytes % 11.7 H Eosinophils % 2.7 Basophils % 0.2 Nucleated Red Blood 0.0 Cells % Immature Granulocytes # 0.030 Neutrophils # 4.8 Lymphocytes # 0.9 Monocytes # 0.8 Eosinophils # 0.2 Basophils # 0.0 Nucleated Red Blood 0.0 Cells # Sodium Level 139 Potassium Level 4.1 Chloride Level 98 Carbon Dioxide Level 37 H Anion Gap 4 L Blood Urea Nitrogen 16 Creatinine 0.81 Est Glomerular Filtrat > 60 Rate mL/min Glucose Level 95 Calcium Level 8.8 Test 10/24/18 12:09 Bedside Glucose 144 Medications Medication Current Medications Alprazolam (Xanax) 2 mg Q8H PRN GTB ANXIETY Last administered on 10/22/18 11:52; Admin Dose 2 MG; Start 10/20/18 at 02:30 Amlodipine Besylate (Norvasc) 10 mg DAILY PO Last administered on 10/23/18 08:22; Admin Dose 10 MG; Start 10/20/18 at 09:00 Ascorbic Acid (Vitamin C) 250 mg DAILY PO Last administered on 10/24/18 10:15; Admin Dose 250 MG; Start 10/20/18 at 09:00 Clonidine (Catapres) 0.1 mg TID GTB Last administered on 10/24/18 14:01; Admin Dose 0.1 MG; Start 10/20/18 at 09:00 Enoxaparin Sodium (Lovenox) 40 mg DAILY SC Last administered on 10/24/18 10:24; Admin Dose 40 MG; Start 10/20/18 at 09:00 Acetaminophen/ Hydrocodone Bitart ([place] (103[address])) 1 tab Q6H PRN GTB MODERATE PAIN 4-6 Last administered on 10/24/18 02:48; Admin Dose 1 TAB; Start 10/20/18 at 02:30 Albuterol/ Ipratropium (Duoneb) 3 ml Q6H RESP THERAPY HHN Last administered on 10/24/18 13:16; Admin Dose 3 ML; Start 10/20/18 at 08:00 Multivitamins/ Minerals (Theragran-M) 1 tab DAILY PO Last administered on 10/24/18 10:15; Admin Dose 1 TAB; Start 10/20/18 at 09:00 Zinc Sulfate (Zinc Sulfate) 220 mg DAILY PO Last administered on 10/24/18at 10:2 2; Admin Dose 220 MG; Start 10/20/18 at 09:00 IV Flush (NS 3 ml) 3 ml PER PROTOCOL IV ; Start 10/20/18 at 02:30 Acetaminophen (Tylenol Supp) 650 mg Q6H PRN [place] .PAIN 1-3 OR TEMP; Start 10/20/18 at 02:30 Morphine Sulfate (morphine) 2 mg Q4H PRN IV .PAIN 7-10 Last administered on 10/24/18at 10:55; Admin Dose 2 MG; Start 10/20/18 at 02:30 Diagnostic Test (Pha) (Accu-Chek) 1 ea 02 XX Last administered on 10/22/18at 02:10; Admin Dose 1 EA; Start 10/21/18 at 02:00 Miscellaneous Information 1 ea NOTE XX ; Start 10/20/18 at 03:00 Glucose (Glutose) 15 gm Q15M PRN PO DECREASED GLUCOSE; Start 10/20/18 at 03:00 Glucose (Glutose) 22.5 gm Q15M PRN PO DECREASED GLUCOSE; Start 10/20/18 at 03:00 Dextrose (D50w Syringe) 25 ml Q15M PRN IV DECREASED GLUCOSE; Start 10/20/18 at 03:00 Dextrose (D50w Syringe) 50 ml Q15M PRN IV DECREASED GLUCOSE; Start 10/20/18 at 03:00 Glucagon (Glucagen) 1 mg Q15M PRN IM DECREASED GLUCOSE; Start 10/20/18 at 03:00 Glucose (Glutose) 15 gm Q15M PRN BUCCAL DECREASED GLUCOSE; Start 10/20/18 at 03:00 Ferrous Sulfate (Ferrous Sulfate (Ec)) 325 mg BID PO Last administered on 10/24/18at 10:15; Admin Dose 325 MG; Start 10/20/18 at 09:00 Lisinopril (Zestril) 20 mg DAILY PO Last administered on 10/23/18at 08:22; Admin Dose 20 MG; Start 10/20/18 at 09:00 Pantoprazole (Protonix Tab) 40 mg AC BREAKFAST PO Last administered on 10/24/18at 06:00; Admin Dose 40 MG; Start 10/20/18 at 07:00 Insulin Aspart (Novolog Insulin Pen) (Adult SC Insulin - Mild Algorithm)... AC MEALS AND BEDTIME SC Last administered on 10/24/18at 12:14; Admin Dose 1 UNIT; Start 10/21/18 at 07:00 Vancomycin HCl (Vanco Iv Per Pharmacy) VANCOMYCIN PER PHARMACY PER PROTOCOL XX ; Start 10/21/18 at 12:00 Vancomycin HCl 1.25 gm/Sodium Chloride 250 ml @ 83.333 mls/ hr Q24H IVPB Last administered on 10/23/18at 15:20; Admin Dose 83.333 MLS/HR; Start 10/21/18 at 14:00 Meropenem/Sodium Chloride 50 ml @ 100 mls/hr Q12H IVPB Last administered on 10/24/18at 06:00; Admin Dose 100 MLS/HR; Start 10/23/18 at 18:30 OJ ROMEO RN SECURITY Oct 24, 2018 14:41
[2018-10-24] MEDS: VANCOMYCIN HCL 1.25 GM in SOD CHLORIDE 0.9% 250 ML IVPB SCH (15:51)
[2018-10-25 00:45] VITALS: BP 107/61; PULSE 84; RESP 18
[2018-10-25] MEDS: ACCU-CHEK XX SCH (02:00)
[2018-10-25] MEDS: ALBUTEROL/IPRATROPIUM (NEB) 3 ML AMP HHN SCH ×4 (02:17→20:13)
[2018-10-25] MEDS: morphine 2 MG INJ IV PRN ×6 (02:33→23:10)
[2018-10-25 03:44] VITALS: BP 100/58; PULSE 84; RESP 18
[2018-10-25] MEDS: PANTOPRAZOLE (EC) 40 MG TAB PO SCH (06:05)
[2018-10-25] MEDS: MEROPENEM 1 GM/50ML(PMX) 50 ML IVPB SCH ×2 (06:05→17:42)
[2018-10-25] MEDS: Insulin NOVOLOG SS MILD Algorithm (SS with meals and bedtime) SC SCH ×4 (06:07→20:46)
[2018-10-25 08:00] VITALS: BP 130/60; PULSE 74; RESP 20
[2018-10-25] MEDS: ASCORBIC ACID 250 MG TAB PO SCH (08:57)
[2018-10-25] MEDS: FERROUS SULFATE (EC) 325 MG TAB PO SCH ×2 (08:57→20:44)
[2018-10-25] MEDS: ZINC SULFATE 220 MG CAP PO SCH (08:57)
[2018-10-25] MEDS: MULTIVITAMINS/MINERALS TAB PO SCH (08:57)
[2018-10-25] MEDS: LISINOPRIL 20 MG TAB PO SCH (09:00)
[2018-10-25] MEDS: AMLODIPINE 10 MG TAB PO SCH (09:00)
[2018-10-25] MEDS: ENOXAPARIN 40 MG/0.4 ML SYG SC SCH (09:06)
--- NOTE | 2018-10-25 10:34 | CONS ---
Consult Date/Type/Reason Admit Date/Time Oct 20, 2018 at 02:04 Initial Consult Date Type of Consult Pulmonary Date/Time of Note DATE: 10/25/18 TIME: 10:33 Subjective Patient declined fpc facility or [facility]. States he wants to go home however no family members are present until early next week. Objective Vital Signs Date Temp Pulse Resp B/P (MAP) Pulse Ox O2 O2 Flow FiO2 Time Delivery Rate 10/25/18 5.0 08:01 10/25/18 98.1 74 20 130/60 99 08:00 (83) 10/25/18 Aerosol 28 05:34 T Tube Intake and Output 10/24/18 10/24/18 10/25/18 1414:59 22:59 06:59 IntakeIntake Total 250 ml 1420 ml 480 ml OutputOutput Total 600 ml 1075 ml BalanceBalance 250 ml 820 ml -595 ml Exam GENERAL: VITAL SIGNS: per chart NECK: Supple. No JVD or lymphadenopathy. CARDIAC EXAM: S1, S2. No added sounds or murmurs. CHEST: Diminished air entry bilaterally ABDOMEN: Soft, nontender. No guarding or rebound. EXTREMITIES: No cyanosis, clubbing or edema. NEUROLOGIC: Generalized weakness. No focal deficits. Vent Setting Fraction of Inspired Oxygen pe: 28 Results/Medications Result Diagram: 10/25/18 0534 10/25/18 0534 Results 24 hrs Laboratory Tests Test 10/24/18 12:09 10/24/18 14:12 10/24/18 18:26 10/24/18 20:13 Bedside Glucose 144 159 158 Vancomycin Level Trough 7.8 L Test 10/25/18 05:34 10/25/18 06:07 White Blood Count 6.9 Red Blood Count 3.69 L Hemoglobin 9.1 L Hematocrit 30.0 L Mean Corpuscular Volume 81.3 L Mean Corpuscular 24.7 L Hemoglobin Mean Corpuscular 30.3 L Hemoglobin Concent Red Cell Distribution 21.9 H Width Platelet Count 202 Mean Platelet Volume 10.5 H Immature Granulocytes % 0.300 Neutrophils % 72.9 Lymphocytes % 13.4 L Monocytes % 10.6 Eosinophils % 2.8 Basophils % 0.0 Nucleated Red Blood 0.0 Cells % Immature Granulocytes # 0.020 Neutrophils # 5.0 Lymphocytes # 0.9 Monocytes # 0.7 Eosinophils # 0.2 Basophils # 0.0 Nucleated Red Blood 0.0 Cells # Sodium Level 139 Potassium Level 4.1 Chloride Level 102 Carbon Dioxide Level 33 H Anion Gap 4 L Blood Urea Nitrogen 14 Creatinine 0.78 Est Glomerular Filtrat > 60 Rate mL/min Glucose Level 100 Calcium Level 9.0 Bedside Glucose 102 Medications Current Medications Alprazolam (Xanax) 2 mg Q8H PRN GTB ANXIETY Last administered on 10/22/18 11:52; Admin Dose 2 MG; Start 10/20/18 at 02:30 Amlodipine Besylate (Norvasc) 10 mg DAILY PO Last administered on 10/23/18 08:22; Admin Dose 10 MG; Start 10/20/18 at 09:00 Ascorbic Acid (Vitamin C) 250 mg DAILY PO Last administered on 10/25/18 08:57; Admin Dose 250 MG; Start 10/20/18 at 09:00 Clonidine (Catapres) 0.1 mg TID GTB Last administered on 10/24/18 14:01; Admin Dose 0.1 MG; Start 10/20/18 at 09:00 Enoxaparin Sodium (Lovenox) 40 mg DAILY SC Last administered on 10/25/18 09:06; Admin Dose 40 MG; Start 10/20/18 at 09:00 Acetaminophen/ Hydrocodone Bitart ([place] ()) 1 tab Q6H PRN GTB MODERATE PAIN 4-6 Last administered on 10/24/18 02:48; Admin Dose 1 TAB; Start 10/20/18 at 02:30 Albuterol/ Ipratropium (Duoneb) 3 ml Q6H RESP THERAPY HHN Last administered on 10/25/18 02:17; Admin Dose 3 ML; Start 10/20/18 at 08:00 Multivitamins/ Minerals (Theragran-M) 1 tab DAILY PO Last administered on 10/25/18 08:57; Admin Dose 1 TAB; Start 10/20/18 at 09:00 Zinc Sulfate (Zinc Sulfate) 220 mg DAILY PO Last administered on 10/25/18 08:57; Admin Dose 220 MG; Start 10/20/18 at 09:00 IV Flush (NS 3 ml) 3 ml PER PROTOCOL IV ; Start 10/20/18 at 02:30 Acetaminophen (Tylenol Supp) 650 mg Q6H PRN [place] .PAIN 1-3 OR TEMP; Start 10/20/18 at 02:30 Morphine Sulfate (morphine) 2 mg Q4H PRN IV .PAIN 7-10 Last administered on 10/25/18at 10:29; Admin Dose 2 MG; Start 10/20/18 at 02:30 Diagnostic Test (Pha) (Accu-Chek) 1 ea 02 XX Last administered on 10/22/18at 02:10; Admin Dose 1 EA; Start 10/21/18 at 02:00 Miscellaneous Information 1 ea NOTE XX ; Start 10/20/18 at 03:00 Glucose (Glutose) 15 gm Q15M PRN PO DECREASED GLUCOSE; Start 10/20/18 at 03:00 Glucose (Glutose) 22.5 gm Q15M PRN PO DECREASED GLUCOSE; Start 10/20/18 at 03:00 Dextrose (D50w Syringe) 25 ml Q15M PRN IV DECREASED GLUCOSE; Start 10/20/18 at 03:00 Dextrose (D50w Syringe) 50 ml Q15M PRN IV DECREASED GLUCOSE; Start 10/20/18 at 03:00 Glucagon (Glucagen) 1 mg Q15M PRN IM DECREASED GLUCOSE; Start 10/20/18 at 03:00 Glucose (Glutose) 15 gm Q15M PRN BUCCAL DECREASED GLUCOSE; Start 10/20/18 at 03:00 Ferrous Sulfate (Ferrous Sulfate (Ec)) 325 mg BID PO Last administered on 10/25/18at 08:57; Admin Dose 325 MG; Start 10/20/18 at 09:00 Lisinopril (Zestril) 20 mg DAILY PO Last administered on 10/23/18at 08:22; Admin Dose 20 MG; Start 10/20/18 at 09:00 Pantoprazole (Protonix Tab) 40 mg AC BREAKFAST PO Last administered on 10/25/18 06:05; Admin Dose 40 MG; Start 10/20/18 at 07:00 Insulin Aspart (Novolog Insulin Pen) (Adult SC Insulin - Mild Algorithm)... AC MEALS AND BEDTIME SC Last administered on 10/24/18 18:30; Admin Dose 1 UNIT; Start 10/21/18 at 07:00 Meropenem/Sodium Chloride 50 ml @ 100 mls/hr Q12H IVPB Last administered on 7/6/19at 06:05; Admin Dose 100 MLS/HR; Start 10/23/18 at 18:30 Assessment/Plan Hospital Course (Demo Recall) IMPRESSION AND PLAN: 1. Chronic lung disease. 2. Cool aerosol with respiratory failure. 3. 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 4. Failure to thrive. 5. Possible acute on chronic infection PLAN: 1. Continue pulmonary toilet. 2. Bronchodilator. 3. Steroids. 4. Antibiotics. 5. DVT and GI prophylaxis. 5. Aspiration precautions DC okay from pulmonary standpoint VAUGHN NICHOLS MD, [facility] Oct 25, 2018 10:34
[2018-10-25 12:00] VITALS: BP 132/72; PULSE 85; RESP 21
[2018-10-25] MEDS: MAGNESIUM HYDROXIDE 30ML CUP PO PRN (12:04)
--- NOTE | 2018-10-25 14:27 | PN ---
Date/Time of Note Date/Time of Note DATE: 10/25/18 TIME: 14:25 Assessment/Plan VTE Prophylaxis Risk score (from [facility])>0 risk: 3 SCD applied (from [facility]): Yes Pharmacological prophylaxis: LMWH Lines/Catheters IV Catheter Type (from [facility]): Saline Lock Urinary Cath still in place: No Assessment/Plan Hospital Course Going assessment and plan 1. Acute on chronic COPD. -continue on breathing treatments. -It Desktop Support Technician following 2. Mild dehydration. - improved 3. History of cystic lung disease. - Continue with breathing treatments. 4. Anemia. -Monitor H&H. 5. Hypertension. - Resume antihypertensives. 6. Transaminitis. - Etiology unknown. Monitor trend. - stable 7. Bacteremia - on abx - continue ID recommendations Disposition and plan. abx per. appears to be improving. I was made aware by case picker that patient does not want snf and want to go home but has no caregiver at present. f/u case picker for safe transition to outpatient setting Discussed POC with Dr. Ceja Result Diagram: 10/25/18 0534 10/25/18 0534 Results 24hrs Laboratory Tests Test 10/24/18 18:26 10/24/18 20:13 10/25/18 05:34 10/25/18 06:07 Bedside Glucose 159 158 102 White Blood Count 6.9 Red Blood Count 3.69 L Hemoglobin 9.1 L Hematocrit 30.0 L Mean Corpuscular Volume 81.3 L Mean Corpuscular 24.7 L Hemoglobin Mean Corpuscular 30.3 L Hemoglobin Concent Red Cell Distribution 21.9 H Width Platelet Count 202 Mean Platelet Volume 10.5 H Immature Granulocytes % 0.300 Neutrophils % 72.9 Lymphocytes % 13.4 L Monocytes % 10.6 Eosinophils % 2.8 Basophils % 0.0 Nucleated Red Blood 0.0 Cells % Immature Granulocytes # 0.020 Neutrophils # 5.0 Lymphocytes # 0.9 Monocytes # 0.7 Eosinophils # 0.2 Basophils # 0.0 Nucleated Red Blood 0.0 Cells # Sodium Level 139 Potassium Level 4.1 Chloride Level 102 Carbon Dioxide Level 33 H Anion Gap 4 L Blood Urea Nitrogen 14 Creatinine 0.78 Est Glomerular Filtrat > 60 Rate mL/min Glucose Level 100 Calcium Level 9.0 Test 10/25/18 11:36 Bedside Glucose 130 Subjective 24 Hr Interval Summary Free Text/Dictation comfortable at present. no s/s of respiratory distress Exam/Review of Systems Exam Vitals Vital Signs Date Temp Pulse Resp B/P (MAP) Pulse Ox O2 O2 Flow FiO2 Time Delivery Rate 10/25/18 5.0 28 14:06 10/25/18 98 18 99 Aerosol 14:06 10/25/18 98.5 132/72 12:00 (92) Intake and Output 10/24/18 10/24/18 10/25/18 1414:59 22:59 06:59 IntakeIntake Total 250 ml 1420 ml 480 ml OutputOutput Total 600 ml 1075 ml BalanceBalance 250 ml 820 ml -595 ml Exam Constitutional: alert, oriented Psych: nl mood/affect Eyes: nl conjunctiva Neck: supple, non-tender Respiratory: diminished breath sounds Cardiovascular: other (regular rate ) Gastrointestinal: soft, non-tender Musculoskeletal: muscle weakness Neurological: nl mental status Results Results 24hrs Laboratory Tests Test 10/24/18 18:26 10/24/18 20:13 10/25/18 05:34 10/25/18 06:07 Bedside Glucose 159 158 102 White Blood Count 6.9 Red Blood Count 3.69 L Hemoglobin 9.1 L Hematocrit 30.0 L Mean Corpuscular Volume 81.3 L Mean Corpuscular 24.7 L Hemoglobin Mean Corpuscular 30.3 L Hemoglobin Concent Red Cell Distribution 21.9 H Width Platelet Count 202 Mean Platelet Volume 10.5 H Immature Granulocytes % 0.300 Neutrophils % 72.9 Lymphocytes % 13.4 L Monocytes % 10.6 Eosinophils % 2.8 Basophils % 0.0 Nucleated Red Blood 0.0 Cells % Immature Granulocytes # 0.020 Neutrophils # 5.0 Lymphocytes # 0.9 Monocytes # 0.7 Eosinophils # 0.2 Basophils # 0.0 Nucleated Red Blood 0.0 Cells # Sodium Level 139 Potassium Level 4.1 Chloride Level 102 Carbon Dioxide Level 33 H Anion Gap 4 L Blood Urea Nitrogen 14 Creatinine 0.78 Est Glomerular Filtrat > 60 Rate mL/min Glucose Level 100 Calcium Level 9.0 Test 10/25/18 11:36 Bedside Glucose 130 Medications Medication Current Medications Alprazolam (Xanax) 2 mg Q8H PRN GTB ANXIETY Last administered on 10/22/18at 11:52; Admin Dose 2 MG; Start 10/20/18 at 02:30 Amlodipine Besylate (Norvasc) 10 mg DAILY PO Last administered on 10/23/18 08:22; Admin Dose 10 MG; Start 10/20/18 at 09:00 Ascorbic Acid (Vitamin C) 250 mg DAILY PO Last administered on 10/25/18 08:57; Admin Dose 250 MG; Start 10/20/18 at 09:00 Clonidine (Catapres) 0.1 mg TID GTB Last administered on 10/25/18 12:04; Admin Dose 0.1 MG; Start 10/20/18 at 09:00 Enoxaparin Sodium (Lovenox) 40 mg DAILY SC Last administered on 10/25/18 09:06; Admin Dose 40 MG; Start 10/20/18 at 09:00 Acetaminophen/ Hydrocodone Bitart ([place] (10)) 1 tab Q6H PRN GTB MODERATE PAIN 4-6 Last administered on 10/24/18 02:48; Admin Dose 1 TAB; Start 10/20/18 at 02:30 Albuterol/ Ipratropium (Duoneb) 3 ml Q6H RESP THERAPY HHN Last administered on 10/25/18 14:06; Admin Dose 3 ML; Start 10/20/18 at 08:00 Multivitamins/ Minerals (Theragran-M) 1 tab DAILY PO Last administered on 10/25/18 08:57; Admin Dose 1 TAB; Start 10/20/18 at 09:00 Zinc Sulfate (Zinc Sulfate) 220 mg DAILY PO Last administered on 10/25/18 08:57; Admin Dose 220 MG; Start 10/20/18 at 09:00 IV Flush (NS 3 ml) 3 ml PER PROTOCOL IV ; Start 10/20/18 at 02:30 Acetaminophen (Tylenol Supp) 650 mg Q6H PRN [place] .PAIN 1-3 OR TEMP; Start 10/20/18 at 02:30 Morphine Sulfate (morphine) 2 mg Q4H PRN IV .PAIN 7-10 Last administered on 10/25/18 10:29; Admin Dose 2 MG; Start 10/20/18 at 02:30 Diagnostic Test (Pha) (Accu-Chek) 1 ea 02 XX Last administered on 10/22/18 02:10; Admin Dose 1 EA; Start 10/21/18 at 02:00 Miscellaneous Information 1 ea NOTE XX ; Start 10/20/18 at 03:00 Glucose (Glutose) 15 gm Q15M PRN PO DECREASED GLUCOSE; Start 10/20/18 at 03:00 Glucose (Glutose) 22.5 gm Q15M PRN PO DECREASED GLUCOSE; Start 10/20/18 at 03:00 Dextrose (D50w Syringe) 25 ml Q15M PRN IV DECREASED GLUCOSE; Start 10/20/18 at 03:00 Dextrose (D50w Syringe) 50 ml Q15M PRN IV DECREASED GLUCOSE; Start 10/20/18 at 03:00 Glucagon (Glucagen) 1 mg Q15M PRN IM DECREASED GLUCOSE; Start 10/20/18 at 03:00 Glucose (Glutose) 15 gm Q15M PRN BUCCAL DECREASED GLUCOSE; Start 10/20/18 at 03:00 Ferrous Sulfate (Ferrous Sulfate (Ec)) 325 mg BID PO Last administered on 10/25/18at 08:57; Admin Dose 325 MG; Start 10/20/18 at 09:00 Lisinopril (Zestril) 20 mg DAILY PO Last administered on 10/23/18at 08:22; Admin Dose 20 MG; Start 10/20/18 at 09:00 Pantoprazole (Protonix Tab) 40 mg AC BREAKFAST PO Last administered on 10/25/18 06:05; Admin Dose 40 MG; Start 10/20/18 at 07:00 Insulin Aspart (Novolog Insulin Pen) (Adult SC Insulin - Mild Algorithm)... AC MEALS AND BEDTIME SC Last administered on 10/24/18 18:30; Admin Dose 1 UNIT; Start 10/21/18 at 07:00 Meropenem/Sodium Chloride 50 ml @ 100 mls/hr Q12H IVPB Last administered on 10/25/18 06:05; Admin Dose 100 MLS/HR; Start 10/23/18 at 18:30 Magnesium Hydroxide (Milk Of Mag) 30 ml BID PRN PO CONSTIPATION Last administered on 10/25/18at 12:04; Admin Dose 30 ML; Start 10/25/18 at 12:00 TAINA HALLMAN NP Oct 25, 2018 14:27
--- NOTE | 2018-10-25 15:52 | CONS ---
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 MIRAB P.AERUG P.AERUG M.I.C. RX M.I.C. RX M.I.C. RX --------- --- --------- --- --------- --- AMIKACIN 4 S AMPICILLIN >=32 R AZTREONAM I CEFAZOLIN I CEFEPIME 16 I CEFOTAXIME S CEFTAZIDIME 8 S CIPROFLOXACIN >=4 R >=4 R GENTAMICIN <=1 S 4 S LEVOFLOXACIN >=8 R >=8 R MEROPENEM 0.19 S TOBRAMYCIN <=1 S <=1 S TRIMETHOPRIM/SULFAMETHOXAZOLE >=320 R PIPERACILLIN/TAZOBACTAM S * 10/20/18 BCX (+) 1/2 bottles Organism 1 CORYNEBACTERIUM SPECIES * 10/22/18 BCx (-) 24H DIAGNOSTIC IMAGING * 10/22/18 CXR Mild decrease in right lower lung opacities, which may represent improving atelectasis on background of chronic interstitial changes. PHYSICAL EXAMINATION: GENERAL: VSS, NAD HEENT: AT, NC, NECK: Supple, CHEST: Rise symmetrical HEART: Pulse RRR ABDOMEN: EXTREMITIES: Warm, dry SKIN: No rash, no diaphoresis ID ASSESSMENT 67 yo M admit with: 1. SIRS vs early sepsis w/fevers, leukocytosis, tachycardia, SOB on admission * SKIN CONTAMINATED BCX ON ADMISSION = recurrent issue on prior admission * 10/20/18 BCX (+) 1/2 bottles Organism 1 CORYNEBACTERIUM SPECIES * 10/22/18 BCx (-) 24H 2. Acute on chronic respiratory failure 3. Aspiration pneumonitis suspected without full blown PNA * Recurrent silent aspiration see barium swallow results PRIOR ADMISSION 4. Advanced COPD emphysema w/bullous lung disease 5. Long-standing history of intermittent hemoptysis likely from underlying bronchiectasis w/chronic coughing * (-)work up for MTB prior admission 6. Anemia INVASIVES: Trach, Midline ABX ALLERGY: KNDA CURRENT ABX: Day #3 => Mer[place] #3 s/p Vanco IV s/p Levaquin ID RECOMMENDATIONS/PLAN: 1. Patient with recurrent back to back hospitalizations at various [facility] hospitals over many years for same issue * Chronic end-stage emphysema w/slow decline 2. MAY DC BACK TO [facility] X 5 DAYS = short term course for GNR ASP Pneumonitis = recurrent issue Consultation Date/Type/Reason Admit Date/Time Oct 20, 2018 at 02:04 Initial Consult Date Date/Time of Note DATE: 10/25/18 TIME: 15:48 Exam/Review of Systems Exam Vitals Vital Signs Date Temp Pulse Resp B/P (MAP) Pulse Ox O2 O2 Flow FiO2 Time Delivery Rate 10/25/18 5.0 28 14:06 10/25/18 98 18 99 Aerosol 14:06 10/25/18 98.5 132/72 12:00 (92) Intake and Output 10/24/18 10/24/18 10/25/18 1515:00 23:00 07:00 IntakeIntake Total 250 ml 1420 ml 480 ml OutputOutput Total 900 ml 775 ml BalanceBalance 250 ml 520 ml -295 ml Results Result Diagram: 10/25/18 0534 10/25/18 0534 Results 24hrs Laboratory Tests Test 10/24/18 18:26 10/24/18 20:13 10/25/18 05:34 10/25/18 06:07 Bedside Glucose 159 158 102 White Blood Count 6.9 Red Blood Count 3.69 L Hemoglobin 9.1 L Hematocrit 30.0 L Mean Corpuscular Volume 81.3 L Mean Corpuscular 24.7 L Hemoglobin Mean Corpuscular 30.3 L Hemoglobin Concent Red Cell Distribution 21.9 H Width Platelet Count 202 Mean Platelet Volume 10.5 H Immature Granulocytes % 0.300 Neutrophils % 72.9 Lymphocytes % 13.4 L Monocytes % 10.6 Eosinophils % 2.8 Basophils % 0.0 Nucleated Red Blood 0.0 Cells % Immature Granulocytes # 0.020 Neutrophils # 5.0 Lymphocytes # 0.9 Monocytes # 0.7 Eosinophils # 0.2 Basophils # 0.0 Nucleated Red Blood 0.0 Cells # Sodium Level 139 Potassium Level 4.1 Chloride Level 102 Carbon Dioxide Level 33 H Anion Gap 4 L Blood Urea Nitrogen 14 Creatinine 0.78 Est Glomerular Filtrat > 60 Rate mL/min Glucose Level 100 Calcium Level 9.0 Test 10/25/18 11:36 Bedside Glucose 130 Medications Medication Current Medications Alprazolam (Xanax) 2 mg Q8H PRN GTB ANXIETY Last administered on 10/22/18 11:52; Admin Dose 2 MG; Start 10/20/18 at 02:30 Amlodipine Besylate (Norvasc) 10 mg DAILY PO Last administered on 10/23/18 08:22; Admin Dose 10 MG; Start 10/20/18 at 09:00 Ascorbic Acid (Vitamin C) 250 mg DAILY PO Last administered on 10/25/18 08:57; Admin Dose 250 MG; Start 10/20/18 at 09:00 Clonidine (Catapres) 0.1 mg TID GTB Last administered on 10/25/18 12:04; Admin Dose 0.1 MG; Start 10/20/18 at 09:00 Enoxaparin Sodium (Lovenox) 40 mg DAILY SC Last administered on 10/25/18 09:06; Admin Dose 40 MG; Start 10/20/18 at 09:00 Acetaminophen/ Hydrocodone Bitart ([place] (10)) 1 tab Q6H PRN GTB MODERATE PAIN 4-6 Last administered on 10/24/18 02:48; Admin Dose 1 TAB; Start 10/20/18 at 02:30 Albuterol/ Ipratropium (Duoneb) 3 ml Q6H RESP THERAPY HHN Last administered on 7/6/19at 14:06; Admin Dose 3 ML; Start 10/20/18 at 08:00 Multivitamins/ Minerals (Theragran-M) 1 tab DAILY PO Last administered on 10/25/18 08:57; Admin Dose 1 TAB; Start 10/20/18 at 09:00 Zinc Sulfate (Zinc Sulfate) 220 mg DAILY PO Last administered on 10/25/18 08:57; Admin Dose 220 MG; Start 10/20/18 at 09:00 IV Flush (NS 3 ml) 3 ml PER PROTOCOL IV ; Start 10/20/18 at 02:30 Acetaminophen (Tylenol Supp) 650 mg Q6H PRN IN .PAIN 1-3 OR TEMP; Start 10/20/18 at 02:30 Morphine Sulfate (morphine) 2 mg Q4H PRN IV .PAIN 7-10 Last administered on 10/25/18at 15:01; Admin Dose 2 MG; Start 10/20/18 at 02:30 Diagnostic Test (Pha) (Accu-Chek) 1 ea 02 XX Last administered on 10/22/18at 02:10; Admin Dose 1 EA; Start 10/21/18 at 02:00 Miscellaneous Information 1 ea NOTE XX ; Start 10/20/18 at 03:00 Glucose (Glutose) 15 gm Q15M PRN PO DECREASED GLUCOSE; Start 10/20/18 at 03:00 Glucose (Glutose) 22.5 gm Q15M PRN PO DECREASED GLUCOSE; Start 10/20/18 at 03:00 Dextrose (D50w Syringe) 25 ml Q15M PRN IV DECREASED GLUCOSE; Start 10/20/18 at 03:00 Dextrose (D50w Syringe) 50 ml Q15M PRN IV DECREASED GLUCOSE; Start 10/20/18 at 03:00 Glucagon (Glucagen) 1 mg Q15M PRN IM DECREASED GLUCOSE; Start 10/20/18 at 03:00 Glucose (Glutose) 15 gm Q15M PRN BUCCAL DECREASED GLUCOSE; Start 10/20/18 at 03:00 Ferrous Sulfate (Ferrous Sulfate (Ec)) 325 mg BID PO Last administered on 10/25/18 08:57; Admin Dose 325 MG; Start 10/20/18 at 09:00 Lisinopril (Zestril) 20 mg DAILY PO Last administered on 10/23/18 08:22; Admin Dose 20 MG; Start 10/20/18 at 09:00 Pantoprazole (Protonix Tab) 40 mg AC BREAKFAST PO Last administered on 10/25/18at 06:05; Admin Dose 40 MG; Start 10/20/18 at 07:00 Insulin Aspart (Novolog Insulin Pen) (Adult SC Insulin - Mild Algorithm)... AC MEALS AND BEDTIME SC Last administered on 10/24/18 18:30; Admin Dose 1 UNIT; Start 10/21/18 at 07:00 Meropenem/Sodium Chloride 50 ml @ 100 mls/hr Q12H IVPB Last administered on 10/25/18 06:05; Admin Dose 100 MLS/HR; Start 10/23/18 at 18:30 Magnesium Hydroxide (Milk Of Mag) 30 ml BID PRN PO CONSTIPATION Last administered on 10/25/18at 12:04; Admin Dose 30 ML; Start 10/25/18 at 12:00 OJ ROMEO NP Oct 25, 2018 15:52
[2018-10-25 20:00] VITALS: BP 108/59; PULSE 95; RESP 18
[2018-10-25] MEDS: ALPRAZOLAM 1 MG TAB GTB PRN (23:10)
[2018-10-26] VITALS: BP 111/65; RESP 19
[2018-10-26] MEDS: ALBUTEROL/IPRATROPIUM (NEB) 3 ML AMP HHN SCH ×4 (02:00→20:48)
[2018-10-26] MEDS: ACCU-CHEK XX SCH (02:06)
[2018-10-26 04:00] VITALS: BP 106/63; PULSE 84; RESP 18
[2018-10-26] MEDS: MAGNESIUM HYDROXIDE 30ML CUP PO PRN (05:50)
[2018-10-26] MEDS: MEROPENEM 1 GM/50ML(PMX) 50 ML IVPB SCH ×2 (05:50→19:03)
[2018-10-26] MEDS: PANTOPRAZOLE (EC) 40 MG TAB PO SCH (06:04)
[2018-10-26] MEDS: Insulin NOVOLOG SS MILD Algorithm (SS with meals and bedtime) SC SCH ×4 (07:00→20:41)
[2018-10-26 07:37] VITALS: BP 112/72; PULSE 94; RESP 22
[2018-10-26] MEDS: ZINC SULFATE 220 MG CAP PO SCH (09:45)
[2018-10-26] MEDS: FERROUS SULFATE (EC) 325 MG TAB PO SCH ×2 (09:45→20:41)
[2018-10-26] MEDS: ASCORBIC ACID 250 MG TAB PO SCH (09:45)
[2018-10-26] MEDS: AMLODIPINE 10 MG TAB PO SCH (09:45)
[2018-10-26] MEDS: LISINOPRIL 20 MG TAB PO SCH (09:46)
[2018-10-26] MEDS: ENOXAPARIN 40 MG/0.4 ML SYG SC SCH (09:55)
[2018-10-26] MEDS: MULTIVITAMINS/MINERALS TAB PO SCH (10:03)
[2018-10-26] MEDS: morphine 2 MG INJ IV PRN ×2 (10:03→22:00)
--- NOTE | 2018-10-26 11:02 | CONS ---
Consult Date/Type/Reason Admit Date/Time Oct 20, 2018 at 02:04 Initial Consult Date Type of Consult Pulmonary Date/Time of Note DATE: 10/26/18 TIME: 11:01 Subjective Patient stable no new events. Objective Vital Signs Date Temp Pulse Resp B/P (MAP) Pulse Ox O2 O2 Flow FiO2 Time Delivery Rate 10/26/18 98.0 94 22 112/72 96 T Tube 07:37 (85) 10/26/18 5.0 28 07:35 Intake and Output 10/25/18 10/25/18 10/26/18 1515:00 23:00 07:00 IntakeIntake Total 600 ml 50 ml 300 ml OutputOutput Total 350 ml 440 ml 1320 ml BalanceBalance 250 ml -390 ml -1020 ml Exam GENERAL: VITAL SIGNS: per chart NECK: Supple. No JVD or lymphadenopathy. Trach site clean and intact CARDIAC EXAM: S1, S2. No added sounds or murmurs. CHEST: Diminished air entry bilaterally ABDOMEN: Soft, nontender. No guarding or rebound. EXTREMITIES: No cyanosis, clubbing or edema. NEUROLOGIC: Generalized weakness. No focal deficits. Vent Setting Fraction of Inspired Oxygen pe: 28 Results/Medications Result Diagram: 10/26/18 0536 10/26/18 0536 Results 24 hrs Laboratory Tests Test 10/25/18 11:36 10/25/18 17:26 10/25/18 20:42 10/26/18 02:04 Bedside Glucose 130 91 185 183 Test 10/26/18 05:36 10/26/18 07:40 White Blood Count 5.3 # Red Blood Count 3.60 L Hemoglobin 8.6 L Hematocrit 29.4 L Mean Corpuscular Volume 81.7 L Mean Corpuscular 23.9 L Hemoglobin Mean Corpuscular 29.3 L Hemoglobin Concent Red Cell Distribution 22.2 H Width Platelet Count 198 Mean Platelet Volume 10.3 Immature Granulocytes % 0.400 Neutrophils % 61.1 Lymphocytes % 20.1 Monocytes % 12.9 H Eosinophils % 5.3 Basophils % 0.2 Nucleated Red Blood 0.0 Cells % Immature Granulocytes # 0.020 Neutrophils # 3.3 Lymphocytes # 1.1 Monocytes # 0.7 Eosinophils # 0.3 Basophils # 0.0 Nucleated Red Blood 0.0 Cells # Sodium Level 140 Potassium Level 4.5 Chloride Level 103 Carbon Dioxide Level 32 H Anion Gap 5 Blood Urea Nitrogen 15 Creatinine 0.69 Est Glomerular Filtrat > 60 Rate mL/min Glucose Level 99 Calcium Level 9.0 Bedside Glucose 98 Medications Current Medications Alprazolam (Xanax) 2 mg Q8H PRN GTB ANXIETY Last administered on 10/25/18 23:10; Admin Dose 2 MG; Start 10/20/18 at 02:30 Amlodipine Besylate (Norvasc) 10 mg DAILY PO Last administered on 10/26/18 09:45; Admin Dose 10 MG; Start 10/20/18 at 09:00 Ascorbic Acid (Vitamin C) 250 mg DAILY PO Last administered on 10/26/18 09:45; Admin Dose 250 MG; Start 10/20/18 at 09:00 Clonidine (Catapres) 0.1 mg TID GTB Last administered on 10/26/18 09:46; Admin Dose 0.1 MG; Start 10/20/18 at 09:00 Enoxaparin Sodium (Lovenox) 40 mg DAILY SC Last administered on 10/26/18 09:55; Admin Dose 40 MG; Start 10/20/18 at 09:00 Acetaminophen/ Hydrocodone Bitart ([place] ()) 1 tab Q6H PRN GTB MODERATE PAIN 4-6 Last administered on 10/24/18 02:48; Admin Dose 1 TAB; Start 10/20/18 at 02:30 Albuterol/ Ipratropium (Duoneb) 3 ml Q6H RESP THERAPY HHN Last administered on 10/26/18 07:34; Admin Dose 3 ML; Start 10/20/18 at 08:00 Multivitamins/ Minerals (Theragran-M) 1 tab DAILY PO Last administered on 9at 10:03; Admin Dose 1 TAB; Start 10/20/18 at 09:00 Zinc Sulfate (Zinc Sulfate) 220 mg DAILY PO Last administered on 10/26/18 09:45; Admin Dose 220 MG; Start 10/20/18 at 09:00 IV Flush (NS 3 ml) 3 ml PER PROTOCOL IV ; Start 10/20/18 at 02:30 Acetaminophen (Tylenol Supp) 650 mg Q6H PRN [place] .PAIN 1-3 OR TEMP; Start 10/20/18 at 02:30 Morphine Sulfate (morphine) 2 mg Q4H PRN IV .PAIN 7-10 Last administered on 10/26/18at 10:03; Admin Dose 2 MG; Start 10/20/18 at 02:30 Diagnostic Test (Pha) (Accu-Chek) 1 ea 02 XX Last administered on 10/26/18at 02:06; Admin Dose 1 EA; Start 10/21/18 at 02:00 Miscellaneous Information 1 ea NOTE XX ; Start 10/20/18 at 03:00 Glucose (Glutose) 15 gm Q15M PRN PO DECREASED GLUCOSE; Start 10/20/18 at 03:00 Glucose (Glutose) 22.5 gm Q15M PRN PO DECREASED GLUCOSE; Start 10/20/18 at 03:00 Dextrose (D50w Syringe) 25 ml Q15M PRN IV DECREASED GLUCOSE; Start 10/20/18 at 03:00 Dextrose (D50w Syringe) 50 ml Q15M PRN IV DECREASED GLUCOSE; Start 10/20/18 at 03:00 Glucagon (Glucagen) 1 mg Q15M PRN IM DECREASED GLUCOSE; Start 10/20/18 at 03:00 Glucose (Glutose) 15 gm Q15M PRN BUCCAL DECREASED GLUCOSE; Start 10/20/18 at 03:00 Ferrous Sulfate (Ferrous Sulfate (Ec)) 325 mg BID PO Last administered on 10/26/18at 09:45; Admin Dose 325 MG; Start 10/20/18 at 09:00 Lisinopril (Zestril) 20 mg DAILY PO Last administered on 10/26/18at 09:46; Admin Dose 20 MG; Start 10/20/18 at 09:00 Pantoprazole (Protonix Tab) 40 mg AC BREAKFAST PO Last administered on 10/26/18at 06:04; Admin Dose 40 MG; Start 10/20/18 at 07:00 Insulin Aspart (Novolog Insulin Pen) (Adult SC Insulin - Mild Algorithm)... AC MEALS AND BEDTIME SC Last administered on 10/25/18at 20:46; Admin Dose 1 UNIT; Start 10/21/18 at 07:00 Meropenem/Sodium Chloride 50 ml @ 100 mls/hr Q12H IVPB Last administered on 10/26/18at 05:50; Admin Dose 100 MLS/HR; Start 10/23/18 at 18:30 Magnesium Hydroxide (Milk Of Mag) 30 ml BID PRN PO CONSTIPATION Last administered on 10/26/18at 05:50; Admin Dose 30 ML; Start 10/25/18 at 12:00 Assessment/Plan Hospital Course (Demo Recall) IMPRESSION AND PLAN: 1. Chronic lung disease. 2. Cool aerosol with respiratory failure. 3. 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 4. Failure to thrive. 5. Possible acute on chronic infection PLAN: 1. Continue pulmonary toilet. 2. Bronchodilator. 3. Steroids. 4. Antibiotics. 5. DVT and GI prophylaxis. 5. Aspiration precautions DC herb from pulmonary standpoint VAUGHN NICHOLS MD, [facility] Oct 26, 2018 11:02
[2018-10-26 11:21] VITALS: BP 114/65; PULSE 74; RESP 22
[2018-10-26] MEDS: HYDROCODONE/APAP (10/325) TAB GTB PRN (13:28)
--- NOTE | 2018-10-26 14:53 | CONS ---
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 MIRAB P.AERUG P.AERUG M.I.C. RX M.I.C. RX M.I.C. RX --------- --- --------- --- --------- --- AMIKACIN 4 S AMPICILLIN >=32 R AZTREONAM I CEFAZOLIN I CEFEPIME 16 I CEFOTAXIME S CEFTAZIDIME 8 S CIPROFLOXACIN >=4 R >=4 R GENTAMICIN <=1 S 4 S LEVOFLOXACIN >=8 R >=8 R MEROPENEM 0.19 S TOBRAMYCIN <=1 S <=1 S TRIMETHOPRIM/SULFAMETHOXAZOLE >=320 R PIPERACILLIN/TAZOBACTAM S * 10/20/18 BCX (+) 1/2 bottles Organism 1 CORYNEBACTERIUM SPECIES * 10/22/18 BCx (-) 24H DIAGNOSTIC IMAGING * 10/22/18 CXR Mild decrease in right lower lung opacities, which may represent improving atelectasis on background of chronic interstitial changes. PHYSICAL EXAMINATION: GENERAL: VSS, NAD HEENT: AT, NC, NECK: Supple, CHEST: Rise symmetrical HEART: Pulse RRR ABDOMEN: EXTREMITIES: Warm, dry SKIN: No rash, no diaphoresis ID ASSESSMENT 67 yo M admit with: 1. SIRS vs early sepsis w/fevers, leukocytosis, tachycardia, SOB on admission * SKIN CONTAMINATED BCX ON ADMISSION = recurrent issue on prior admission * 10/20/18 BCX (+) 1/2 bottles Organism 1 CORYNEBACTERIUM SPECIES * 10/22/18 BCx (-) 24H 2. Acute on chronic respiratory failure 3. Aspiration pneumonitis suspected without full blown PNA * Recurrent silent aspiration see barium swallow results PRIOR ADMISSION 4. Advanced COPD emphysema w/bullous lung disease 5. Long-standing history of intermittent hemoptysis likely from underlying bron chiectasis w/chronic coughing * (-)work up for MTB prior admission 6. Anemia INVASIVES: Trach, Midline ABX ALLERGY: KNDA CURRENT ABX: Day #6 => [place] #4 s/p Vanco IV s/p Levaquin ID RECOMMENDATIONS/PLAN: 1. Patient with recurrent back to back hospitalizations at various [facility] hospitals over many years for same issue * Chronic end-stage emphysema w/slow decline 2. MAY DC BACK TO [facility] X 5 DAYS = short term course for GNR ASP Pneumonitis = recurrent issue Consultation Date/Type/Reason Admit Date/Time Oct 20, 2018 at 02:04 Initial Consult Date Date/Time of Note DATE: 10/26/18 TIME: 14:51 Exam/Review of Systems Exam Vitals Vital Signs Date Temp Pulse Resp B/P (MAP) Pulse Ox O2 O2 Flow FiO2 Time Delivery Rate 10/26/18 5.0 28 13:15 10/26/18 86 19 99 Aerosol 13:15 Mask 10/26/18 98.0 114/65 11:21 (81) Intake and Output 10/25/18 10/25/18 10/26/18 1515:00 23:00 07:00 IntakeIntake Total 600 ml 50 ml 300 ml OutputOutput Total 350 ml 440 ml 1320 ml BalanceBalance 250 ml -390 ml -1020 ml Results Result Diagram: 10/26/18 0536 10/26/18 0536 Results 24hrs Laboratory Tests Test 10/25/18 17:26 10/25/18 20:42 10/26/18 02:04 10/26/18 05:36 Bedside Glucose 91 185 183 White Blood Count 5.3 # Red Blood Count 3.60 L Hemoglobin 8.6 L Hematocrit 29.4 L Mean Corpuscular Volume 81.7 L Mean Corpuscular 23.9 L Hemoglobin Mean Corpuscular 29.3 L Hemoglobin Concent Red Cell Distribution 22.2 H Width Platelet Count 198 Mean Platelet Volume 10.3 Immature Granulocytes % 0.400 Neutrophils % 61.1 Lymphocytes % 20.1 Monocytes % 12.9 H Eosinophils % 5.3 Basophils % 0.2 Nucleated Red Blood 0.0 Cells % Immature Granulocytes # 0.020 Neutrophils # 3.3 Lymphocytes # 1.1 Monocytes # 0.7 Eosinophils # 0.3 Basophils # 0.0 Nucleated Red Blood 0.0 Cells # Sodium Level 140 Potassium Level 4.5 Chloride Level 103 Carbon Dioxide Level 32 H Anion Gap 5 Blood Urea Nitrogen 15 Creatinine 0.69 Est Glomerular Filtrat > 60 Rate mL/min Glucose Level 99 Calcium Level 9.0 Test 10/26/18 07:40 10/26/18 12:00 Bedside Glucose 98 136 Medications Medication Current Medications Alprazolam (Xanax) 2 mg Q8H PRN GTB ANXIETY Last administered on 10/25/18 23:10; Admin Dose 2 MG; Start 10/20/18 at 02:30 Amlodipine Besylate (Norvasc) 10 mg DAILY PO Last administered on 10/26/18 09:45; Admin Dose 10 MG; Start 10/20/18 at 09:00 Ascorbic Acid (Vitamin C) 250 mg DAILY PO Last administered on 10/26/18 09:45; Admin Dose 250 MG; Start 10/20/18 at 09:00 Clonidine (Catapres) 0.1 mg TID GTB Last administered on 10/26/18 13:28; Admin Dose 0.1 MG; Start 10/20/18 at 09:00 Enoxaparin Sodium (Lovenox) 40 mg DAILY SC Last administered on 10/26/18 09:55; Admin Dose 40 MG; Start 10/20/18 at 09:00 Acetaminophen/ Hydrocodone Bitart ([place] (10/325)) 1 tab Q6H PRN GTB MODERATE PAIN 4-6 Last administered on 10/26/18 13:28; Admin Dose 1 TAB; Start 10/20/18 at 02:30 Albuterol/ Ipratropium (Duoneb) 3 ml Q6H RESP THERAPY HHN Last administered on 10/26/18at 13:14; Admin Dose 3 ML; Start 10/20/18 at 08:00 Multivitamins/ Minerals (Theragran-M) 1 tab DAILY PO Last administered on 10/26/18 10:03; Admin Dose 1 TAB; Start 10/20/18 at 09:00 Zinc Sulfate (Zinc Sulfate) 220 mg DAILY PO Last administered on 10/26/18 09:45; Admin Dose 220 MG; Start 10/20/18 at 09:00 IV Flush (NS 3 ml) 3 ml PER PROTOCOL IV ; Start 10/20/18 at 02:30 Acetaminophen (Tylenol Supp) 650 mg Q6H PRN [place] .PAIN 1-3 OR TEMP; Start 10/20/18 at 02:30 Morphine Sulfate (morphine) 2 mg Q4H PRN IV .PAIN 7-10 Last administered on 10/26/18at 10:03; Admin Dose 2 MG; Start 10/20/18 at 02:30 Diagnostic Test (Pha) (Accu-Chek) 1 ea 02 XX Last administered on 10/26/18at 02:06; Admin Dose 1 EA; Start 10/21/18 at 02:00 Miscellaneous Information 1 ea NOTE XX ; Start 10/20/18 at 03:00 Glucose (Glutose) 15 gm Q15M PRN PO DECREASED GLUCOSE; Start 10/20/18 at 03:00 Glucose (Glutose) 22.5 gm Q15M PRN PO DECREASED GLUCOSE; Start 10/20/18 at 03:00 Dextrose (D50w Syringe) 25 ml Q15M PRN IV DECREASED GLUCOSE; Start 10/20/18 at 03:00 Dextrose (D50w Syringe) 50 ml Q15M PRN IV DECREASED GLUCOSE; Start 10/20/18 at 03:00 Glucagon (Glucagen) 1 mg Q15M PRN IM DECREASED GLUCOSE; Start 10/20/18 at 03:00 Glucose (Glutose) 15 gm Q15M PRN BUCCAL DECREASED GLUCOSE; Start 10/20/18 at 03:00 Ferrous Sulfate (Ferrous Sulfate (Ec)) 325 mg BID PO Last administered on 10/26/18at 09:45; Admin Dose 325 MG; Start 10/20/18 at 09:00 Lisinopril (Zestril) 20 mg DAILY PO Last administered on 10/26/18 09:46; Admin Dose 20 MG; Start 10/20/18 at 09:00 Pantoprazole (Protonix Tab) 40 mg AC BREAKFAST PO Last administered on 10/26/18 06:04; Admin Dose 40 MG; Start 10/20/18 at 07:00 Insulin Aspart (Novolog Insulin Pen) (Adult SC Insulin - Mild Algorithm)... AC MEALS AND BEDTIME SC Last administered on 10/25/18 20:46; Admin Dose 1 UNIT; Start 10/21/18 at 07:00 Meropenem/Sodium Chloride 50 ml @ 100 mls/hr Q12H IVPB Last administered on 10/26/18 05:50; Admin Dose 100 MLS/HR; Start 10/23/18 at 18:30 Magnesium Hydroxide (Milk Of Mag) 30 ml BID PRN PO CONSTIPATION Last administered on 10/26/18 05:50; Admin Dose 30 ML; Start 10/25/18 at 12:00 OJ ROMEO NP Oct 26, 2018 14:53
[2018-10-26 15:42] VITALS: BP 91/58; PULSE 76; RESP 22
--- NOTE | 2018-10-26 18:08 | PN ---
Date/Time of Note Date/Time of Note DATE: 10/26/18 TIME: 18:03 Assessment/Plan VTE Prophylaxis Risk score (from Ns)>0 risk: 5 SCD applied (from Ns): Yes Pharmacological prophylaxis: LMWH Lines/Catheters IV [facility] Saline Lock Urinary Cath still in place: No Assessment/Plan Hospital Course Going assessment and plan 1. Acute on chronic COPD. -continue on breathing treatments. -[employer] Bar[employer] following 2. Mild dehydration. - improved 3. History of cystic lung disease. - Continue with breathing treatments. 4. Anemia. -Monitor H&H. 5. Hypertension. - Resume antihypertensives. 6. Transaminitis. - Etiology unknown. Monitor trend. - stable 7. Bacteremia - on abx - continue ID recommendations Disposition and plan. abx per. appears to be improved I was made aware by disease case manager that patient does not want snf and want to go home but has no caregiver at present. Caregiver reportedly will be available Saturday10/27/18. Continue suppo rtive care. Discussed POC with Dr. Ceja Result Diagram: 10/26/1836 10/26/18 0536 Results 24hrs Laboratory Tests Test 10/25/18 20:42 10/26/18 02:04 10/26/18 05:36 10/26/18 07:40 Bedside Glucose 185 183 98 White Blood Count 5.3 # Red Blood Count 3.60 L Hemoglobin 8.6 L Hematocrit 29.4 L Mean Corpuscular Volume 81.7 L Mean Corpuscular 23.9 L Hemoglobin Mean Corpuscular 29.3 L Hemoglobin Concent Red Cell Distribution 22.2 H Width Platelet Count 198 Mean Platelet Volume 10.3 Immature Granulocytes % 0.400 Neutrophils % 61.1 Lymphocytes % 20.1 Monocytes % 12.9 H Eosinophils % 5.3 Basophils % 0.2 Nucleated Red Blood 0.0 Cells % Immature Granulocytes # 0.020 Neutrophils # 3.3 Lymphocytes # 1.1 Monocytes # 0.7 Eosinophils # 0.3 Basophils # 0.0 Nucleated Red Blood 0.0 Cells # Sodium Level 140 Potassium Level 4.5 Chloride Level 103 Carbon Dioxide Level 32 H Anion Gap 5 Blood Urea Nitrogen 15 Creatinine 0.69 Est Glomerular Filtrat > 60 Rate mL/min Glucose Level 99 Calcium Level 9.0 Test 10/26/18 12:00 10/26/18 17:43 Bedside Glucose 136 154 Subjective 24 Hr Interval Summary Free Text/Dictation no distress noted at this time. denies any shortness of breath Exam/Review of Systems Exam Vitals Vital Signs Date Temp Pulse Resp B/P (MAP) Pulse Ox O2 O2 Flow FiO2 Time Delivery Rate 10/26/18 98.0 76 22 91/58 (69) 96 T Tube 15:42 10/26/18 5.0 28 13:15 Intake and Output 10/25/18 10/25/18 10/26/18 1515:00 23:00 07:00 IntakeIntake Total 600 ml 50 ml 300 ml OutputOutput Total 350 ml 440 ml 1320 ml BalanceBalance 250 ml -390 ml -1020 ml Exam Constitutional: alert, oriented Psych: nl mood/affect Eyes: nl conjunctiva Neck: supple, non-tender Respiratory: diminished breath sounds Cardiovascular: other (regular rate ) Gastrointestinal: soft, non-tender Musculoskeletal: muscle weakness Neurological: nl mental status Results Results 24hrs Laboratory Tests Test 10/25/18 20:42 10/26/18 02:04 10/26/18 05:36 10/26/18 07:40 Bedside Glucose 185 183 98 White Blood Count 5.3 # Red Blood Count 3.60 L Hemoglobin 8.6 L Hematocrit 29.4 L Mean Corpuscular Volume 81.7 L Mean Corpuscular 23.9 L Hemoglobin Mean Corpuscular 29.3 L Hemoglobin Concent Red Cell Distribution 22.2 H Width Platelet Count 198 Mean Platelet Volume 10.3 Immature Granulocytes % 0.400 Neutrophils % 61.1 Lymphocytes % 20.1 Monocytes % 12.9 H Eosinophils % 5.3 Basophils % 0.2 Nucleated Red Blood 0.0 Cells % Immature Granulocytes # 0.020 Neutrophils # 3.3 Lymphocytes # 1.1 Monocytes # 0.7 Eosinophils # 0.3 Basophils # 0.0 Nucleated Red Blood 0.0 Cells # Sodium Level 140 Potassium Level 4.5 Chloride Level 103 Carbon Dioxide Level 32 H Anion Gap 5 Blood Urea Nitrogen 15 Creatinine 0.69 Est Glomerular Filtrat > 60 Rate mL/min Glucose Level 99 Calcium Level 9.0 Test 10/26/18 12:00 10/26/18 17:43 Bedside Glucose 136 154 Medications Medication Current Medications Alprazolam (Xanax) 2 mg Q8H PRN GTB ANXIETY Last administered on 10/25/18 23:10; Admin Dose 2 MG; Start 10/20/18 at 02:30 Amlodipine Besylate (Norvasc) 10 mg DAILY PO Last administered on 10/26/18 09:45; Admin Dose 10 MG; Start 10/20/18 at 09:00 Ascorbic Acid (Vitamin C) 250 mg DAILY PO Last administered on 10/26/18 09:45; Admin Dose 250 MG; Start 10/20/18 at 09:00 Clonidine (Catapres) 0.1 mg TID GTB Last administered on 10/26/18 13:28; Admin Dose 0.1 MG; Start 10/20/18 at 09:00 Enoxaparin Sodium (Lovenox) 40 mg DAILY SC Last administered on 10/26/18 09:55; Admin Dose 40 MG; Start 10/20/18 at 09:00 Acetaminophen/ Hydrocodone Bitart ([place] ()) 1 tab Q6H PRN GTB MODERATE PAIN 4-6 Last administered on 10/26/18 13:28; Admin Dose 1 TAB; Start 10/20/18 at 02:30 Albuterol/ Ipratropium (Duoneb) 3 ml Q6H RESP THERAPY HHN Last administered on 10/26/18 13:14; Admin Dose 3 ML; Start 10/20/18 at 08:00 Multivitamins/ Minerals (Theragran-M) 1 tab DAILY PO Last administered on 10/26/18 10:03; Admin Dose 1 TAB; Start 10/20/18 at 09:00 Zinc Sulfate (Zinc Sulfate) 220 mg DAILY PO Last administered on 10/26/18 09:45; Admin Dose 220 MG; Start 10/20/18 at 09:00 IV Flush (NS 3 ml) 3 ml PER PROTOCOL IV ; Start 10/20/18 at 02:30 Acetaminophen (Tylenol Supp) 650 mg Q6H PRN IN .PAIN 1-3 OR TEMP; Start 10/20/18 at 02:30 Morphine Sulfate (morphine) 2 mg Q4H PRN IV .PAIN 7-10 Last administered on 10/26/18 10:03; Admin Dose 2 MG; Start 10/20/18 at 02:30 Diagnostic Test (Pha) (Accu-Chek) 1 ea 02 XX Last administered on 7/7/19at 02:06; Admin Dose 1 EA; Start 10/21/18 at 02:00 Miscellaneous Information 1 ea NOTE XX ; Start 10/20/18 at 03:00 Glucose (Glutose) 15 gm Q15M PRN PO DECREASED GLUCOSE; Start 10/20/18 at 03:00 Glucose (Glutose) 22.5 gm Q15M PRN PO DECREASED GLUCOSE; Start 10/20/18 at 03:00 Dextrose (D50w Syringe) 25 ml Q15M PRN IV DECREASED GLUCOSE; Start 10/20/18 at 03:00 Dextrose (D50w Syringe) 50 ml Q15M PRN IV DECREASED GLUCOSE; Start 10/20/18 at 03:00 Glucagon (Glucagen) 1 mg Q15M PRN IM DECREASED GLUCOSE; Start 10/20/18 at 03:00 Glucose (Glutose) 15 gm Q15M PRN BUCCAL DECREASED GLUCOSE; Start 10/20/18 at 03:00 Ferrous Sulfate (Ferrous Sulfate (Ec)) 325 mg BID PO Last administered on 10/26/18at 09:45; Admin Dose 325 MG; Start 10/20/18 at 09:00 Lisinopril (Zestril) 20 mg DAILY PO Last administered on 10/26/18at 09:46; Admin Dose 20 MG; Start 10/20/18 at 09:00 Pantoprazole (Protonix Tab) 40 mg AC BREAKFAST PO Last administered on 10/26/18 at 06:04; Admin Dose 40 MG; Start 10/20/18 at 07:00 Insulin Aspart (Novolog Insulin Pen) (Adult SC Insulin - Mild Algorithm)... AC MEALS AND BEDTIME SC Last administered on 10/25/18at 20:46; Admin Dose 1 UNIT; Start 10/21/18 at 07:00 Meropenem/Sodium Chloride 50 ml @ 100 mls/hr Q12H IVPB Last administered on 10/26/18 05:50; Admin Dose 100 MLS/HR; Start 10/23/18 at 18:30 Magnesium Hydroxide (Milk Of Mag) 30 ml BID PRN PO CONSTIPATION Last administered on 10/26/18 05:50; Admin Dose 30 ML; Start 10/25/18 at 12:00 TAINA HALLMAN NP Oct 26, 2018 18:08
[2018-10-26 19:58] VITALS: BP 90/52; PULSE 76; RESP 22
[2018-10-27] VITALS: BP 93/54; PULSE 72; RESP 23
[2018-10-27] MEDS: ALBUTEROL/IPRATROPIUM (NEB) 3 ML AMP HHN SCH ×4 (01:11→19:52)
[2018-10-27] MEDS: ACCU-CHEK XX SCH (02:00)
[2018-10-27] MEDS: morphine 2 MG INJ IV PRN ×4 (02:48→20:11)
[2018-10-27 04:09] VITALS: BP 104/61; PULSE 67; RESP 22
[2018-10-27] MEDS: MEROPENEM 1 GM/50ML(PMX) 50 ML IVPB SCH ×2 (05:46→17:58)
[2018-10-27] MEDS: PANTOPRAZOLE (EC) 40 MG TAB PO SCH (06:50)
[2018-10-27] MEDS: Insulin NOVOLOG SS MILD Algorithm (SS with meals and bedtime) SC SCH ×4 (07:00→20:15)
[2018-10-27 07:29] VITALS: BP 105/59; PULSE 90; RESP 21
[2018-10-27] MEDS: HYDROCODONE/APAP (10/325) TAB GTB PRN ×2 (08:54→17:57)
[2018-10-27] MEDS: FERROUS SULFATE (EC) 325 MG TAB PO SCH ×2 (08:55→20:10)
[2018-10-27] MEDS: ASCORBIC ACID 250 MG TAB PO SCH (08:55)
[2018-10-27] MEDS: ZINC SULFATE 220 MG CAP PO SCH (08:55)
[2018-10-27] MEDS: MULTIVITAMINS/MINERALS TAB PO SCH (08:55)
[2018-10-27] MEDS: AMLODIPINE 10 MG TAB PO SCH (08:56)
[2018-10-27] MEDS: LISINOPRIL 20 MG TAB PO SCH (08:57)
[2018-10-27] MEDS: ENOXAPARIN 40 MG/0.4 ML SYG SC SCH (09:06)
[2018-10-27 11:35] VITALS: BP 94/55; PULSE 79; RESP 18
--- NOTE | 2018-10-27 12:21 | CONS ---
Consult Date/Type/Reason Admit Date/Time Oct 20, 2018 at 02:04 Initial Consult Date Type of Consult Pulmonary Date/Time of Note DATE: 10/27/18 TIME: 12:20 Subjective Patient comfortable no respiratory distress. Objective Vital Signs Date Temp Pulse Resp B/P (MAP) Pulse Ox O2 O2 Flow FiO2 Time Delivery Rate 10/27/18 98.2 79 18 94/55 (68) 99 Venturi 11:35 Mask 10/27/18 5.0 08:00 10/27/18 28 07:34 Intake and Output 10/26/18 10/26/18 10/27/18 1515:00 23:00 07:00 IntakeIntake Total 350 ml 820 ml 200 ml OutputOutput Total 300 ml 850 ml 1430 ml BalanceBalance 50 ml -30 ml -1230 ml Exam GENERAL: Chronically ill-appearing gentleman comfortable at rest VITAL SIGNS: per chart NECK: Supple. No JVD or lymphadenopathy. Tracheostomy site clean and intact CARDIAC EXAM: S1, S2. No added sounds or murmurs. CHEST: Diminished air entry bilaterally ABDOMEN: Soft, nontender. No guarding or rebound. EXTREMITIES: No cyanosis, clubbing or edema. NEUROLOGIC: Generalized weakness. No focal deficits. Vent Setting Fraction of Inspired Oxygen pe: 28 Results/Medications Result Diagram: 10/27/1852310/27/18523 Results 24 hrs Laboratory Tests Test 10/26/18 17:43 10/26/18 20:38 10/27/18 05:24 10/27/18 07:50 Bedside Glucose 154 135 101 White Blood Count 6.0 Red Blood Count 3.68 L Hemoglobin 9.1 L Hematocrit 30.6 L Mean Corpuscular Volume 83.2 Mean Corpuscular 24.7 L Hemoglobin Mean Corpuscular 29.7 L Hemoglobin Concent Red Cell Distribution 21.7 H Width Platelet Count 169 Mean Platelet Volume 10.8 H Immature Granulocytes % 0.300 Neutrophils % 60.0 Lymphocytes % 17.6 Monocytes % 17.1 H Eosinophils % 4.7 Basophils % 0.3 Nucleated Red Blood 0.0 Cells % Immature Granulocytes # 0.020 Neutrophils # 3.6 Lymphocytes # 1.1 Monocytes # 1.0 H Eosinophils # 0.3 Basophils # 0.0 Nucleated Red Blood 0.0 Cells # Sodium Level 139 Potassium Level 5.2 H Chloride Level 101 Carbon Dioxide Level 33 H Anion Gap 5 Blood Urea Nitrogen 19 Creatinine 0.77 Est Glomerular Filtrat > 60 Rate mL/min Glucose Level 95 Calcium Level 9.3 Test 10/27/18 11:57 Bedside Glucose 114 Medications Current Medications Alprazolam (Xanax) 2 mg Q8H PRN GTB ANXIETY Last administered on 10/25/18 23:10; Admin Dose 2 MG; Start 10/20/18 at 02:30 Amlodipine Besylate (Norvasc) 10 mg DAILY PO Last administered on 10/27/18 0 8:56; Admin Dose 10 MG; Start 10/20/18 at 09:00 Ascorbic Acid (Vitamin C) 250 mg DAILY PO Last administered on 10/27/18 08:55; Admin Dose 250 MG; Start 10/20/18 at 09:00 Clonidine (Catapres) 0.1 mg TID GTB Last administered on 10/26/18 13:28; Admin Dose 0.1 MG; Start 10/20/18 at 09:00 Enoxaparin Sodium (Lovenox) 40 mg DAILY SC Last administered on 10/27/18 09:06; Admin Dose 40 MG; Start 10/20/18 at 09:00 Acetaminophen/ Hydrocodone Bitart ([place] (10/325)) 1 tab Q6H PRN GTB MODERATE PAIN 4-6 Last administered on 10/27/18 08:54; Admin Dose 1 TAB; Start 10/20/18 at 02:30 Albuterol/ Ipratropium (Duoneb) 3 ml Q6H RESP THERAPY HHN Last administered on 10/27/18 07:32; Admin Dose 3 ML; Start 10/20/18 at 08:00 Multivitamins/ Minerals (Theragran-M) 1 tab DAILY PO Last administered on 10/27/18 08:55; Admin Dose 1 TAB; Start 10/20/18 at 09:00 Zinc Sulfate (Zinc Sulfate) 220 mg DAILY PO Last administered on 10/27/18 08:55; Admin Dose 220 MG; Start 10/20/18 at 09:00 IV Flush (NS 3 ml) 3 ml PER PROTOCOL IV ; Start 10/20/18 at 02:30 Acetaminophen (Tylenol Supp) 650 mg Q6H PRN [place] .PAIN 1-3 OR TEMP; Start 10/20/18 at 02:30 Morphine Sulfate (morphine) 2 mg Q4H PRN IV .PAIN 7-10 Last administered on 10/27/18at 06:50; Admin Dose 2 MG; Start 10/20/18 at 02:30 Diagnostic Test (Pha) (Accu-Chek) 1 ea 02 XX Last administered on 10/26/18at 02:06; Admin Dose 1 EA; Start 10/21/18 at 02:00 Miscellaneous Information 1 ea NOTE XX ; Start 10/20/18 at 03:00 Glucose (Glutose) 15 gm Q15M PRN PO DECREASED GLUCOSE; Start 10/20/18 at 03:00 Glucose (Glutose) 22.5 gm Q15M PRN PO DECREASED GLUCOSE; Start 10/20/18 at 03:00 Dextrose (D50w Syringe) 25 ml Q15M PRN IV DECREASED GLUCOSE; Start 10/20/18 at 03:00 Dextrose (D50w Syringe) 50 ml Q15M PRN IV DECREASED GLUCOSE; Start 10/20/18 at 03:00 Glucagon (Glucagen) 1 mg Q15M PRN IM DECREASED GLUCOSE; Start 10/20/18 at 03:00 Glucose (Glutose) 15 gm Q15M PRN BUCCAL DECREASED GLUCOSE; Start 10/20/18 at 03:00 Ferrous Sulfate (Ferrous Sulfate (Ec)) 325 mg BID PO Last administered on 10/27/18at 08:55; Admin Dose 325 MG; Start 10/20/18 at 09:00 Lisinopril (Zestril) 20 mg DAILY PO Last administered on 10/27/18 08:57; Admin Dose 20 MG; Start 10/20/18 at 09:00 Pantoprazole (Protonix Tab) 40 mg AC BREAKFAST PO Last administered on 10/27/18 06:50; Admin Dose 40 MG; Start 10/20/18 at 07:00 Insulin Aspart (Novolog Insulin Pen) (Adult SC Insulin - Mild Algorithm)... AC MEALS AND BEDTIME SC Last administered on 10/26/18 18:14; Admin Dose 1 UNIT; Start 10/21/18 at 07:00 Meropenem/Sodium Chloride 50 ml @ 100 mls/hr Q12H IVPB Last administered on 10/27/18 05:46; Admin Dose 100 MLS/HR; Start 10/23/18 at 18:30 Magnesium Hydroxide (Milk Of Mag) 30 ml BID PRN PO CONSTIPATION Last administered on 10/26/18at 05:50; Admin Dose 30 ML; Start 10/25/18 at 12:00 Assessment/Plan Hospital Course (Demo Recall) IMPRESSION AND PLAN: 1. Chronic lung disease. 2. Cool aerosol with respiratory failure. 3. 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 4. Failure to thrive. 5. Possible acute on chronic infection PLAN: 1. Continue pulmonary toilet. 2. Bronchodilator. 3. Steroids. 4. Antibiotics. 5. DVT and GI prophylaxis. 5. 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
--- NOTE | 2018-10-27 13:55 | PN ---
Date/Time of Note Date/Time of Note DATE: 10/27/18 TIME: 13:52 Assessment/Plan VTE Prophylaxis Risk score (from Ns)>0 risk: 7 SCD applied (from Nsg): Yes Pharmacological prophylaxis: LMWH Lines/Catheters IV Catheter Type (from Nrs): Saline Lock Urinary Cath still in place: No Assessment/Plan Hospital Course SUBJECTIVE: Denies any complaints. Remains afebrile. OBJECTIVE: Physical Exam General: Adequately build 67 year-old male lying in bed in no apparent distress. HEENT: Normocephalic, atraumatic. Eyes: Anicteric sclerae, conjunctivae clear. ENT: Nasal septum midline, oral mucosa moist. Tracheostomy in midline. Neck supple, no JVD noticed. Respiratory: Bilaterally diminished breath sounds. No use of accessory muscles of respiration. Trach to cool aerosol mask. Cardiovascular: S1, S2 heard. No murmurs or gallops. Abdomen: Soft, nontender, and nondistended. Bowel sounds positive in all 4 quadrants. Genitourinary: Deferred. Extremities: No cyanosis, no clubbing, no edema. Peripheral pulses palpable. Neurologic: Cranial nerves II through XII grossly intact. The patient is awake, alert, and oriented. Skin: Normal skin turgor. No skin rashes. Labs & Vitals per chart ASSESSMENT & PLAN 67-year-old male with comorbidities including chronic respiratory failure status post tracheostomy, COPD, and hypertension, who [facility] because of worsening respiratory distress, was admitted to inpatient setting for further treatment and evaluation. 1. Acute on chronic respiratory failure. Hypoxic. Status post evaluation by pulmonology. Continue trach tube: Aerosol mask. Continue inhaled bronchodilators. 2. Aspiration pneumonia. Sputum culture positive for Proteus mirabilis and Pseudomonas aeruginosa. Continue antimicrobials as per ID. 3. Dysphagia. Status post physical therapy evaluation. Continue aspiration precautions. 4. Hypertension. Blood pressure borderline low, most probably from too much opioids. 5. Normocytic anemia. Most probably anemia chronic disease. Continue iron. 6. COPD. Continue inhaled bronchodilators (LISA). 7. Fluids, electrolytes, and nutrition. Pured diet with nectar thick liquids. 8. DVT prophylaxis. Subcutaneous Lovenox. 9. Plan. Continue antimicrobials as per ID. Patient hesitant to go back to [facility]iary facility. Case management working on arranging home health before discharging the patient home. The patient was seen in collaboration with Dr. Renteria. Result Diagram: 10/27/18 0524 10/27/1824 Results 24hrs Laboratory Tests Test 10/26/18 17:43 10/26/18 20:38 10/27/18 05:24 10/27/18 07:50 Bedside Glucose 154 135 101 White Blood Count 6.0 Red Blood Count 3.68 L Hemoglobin 9.1 L Hematocrit 30.6 L Mean Corpuscular Volume 83.2 Mean Corpuscular 24.7 L Hemoglobin Mean Corpuscular 29.7 L Hemoglobin Concent Red Cell Distribution 21.7 H Width Platelet Count 169 Mean Platelet Volume 10.8 H Immature Granulocytes % 0.300 Neutrophils % 60.0 Lymphocytes % 17.6 Monocytes % 17.1 H Eosinophils % 4.7 Basophils % 0.3 Nucleated Red Blood 0.0 Cells % Immature Granulocytes # 0.020 Neutrophils # 3.6 Lymphocytes # 1.1 Monocytes # 1.0 H Eosinophils # 0.3 Basophils # 0.0 Nucleated Red Blood 0.0 Cells # Sodium Level 139 Potassium Level 5.2 H Chloride Level 101 Carbon Dioxide Level 33 H Anion Gap 5 Blood Urea Nitrogen 19 Creatinine 0.77 Est Glomerular Filtrat > 60 Rate mL/min Glucose Level 95 Calcium Level 9.3 Test 10/27/18 11:57 Bedside Glucose 114 Exam/Review of Systems Exam Vitals Vital Signs Date Temp Pulse Resp B/P (MAP) Pulse Ox O2 O2 Flow FiO2 Time Delivery Rate 10/27/18 80 18 99 Aerosol 5.0 28 13:05 10/27/18 98.2 94/55 (68) 11:35 Intake and Output 10/26/18 10/26/18 10/27/18 1515:00 23:00 07:00 IntakeIntake Total 350 ml 820 ml 200 ml OutputOutput Total 300 ml 850 ml 1430 ml BalanceBalance 50 ml -30 ml -1230 ml Results Results 24hrs Laboratory Tests Test 10/26/18 17:43 10/26/18 20:38 10/27/18 05:24 10/27/18 07:50 Bedside Glucose 154 135 101 White Blood Count 6.0 Red Blood Count 3.68 L Hemoglobin 9.1 L Hematocrit 30.6 L Mean Corpuscular Volume 83.2 Mean Corpuscular 24.7 L Hemoglobin Mean Corpuscular 29.7 L Hemoglobin Concent Red Cell Distribution 21.7 H Width Platelet Count 169 Mean Platelet Volume 10.8 H Immature Granulocytes % 0.300 Neutrophils % 60.0 Lymphocytes % 17.6 Monocytes % 17.1 H Eosinophils % 4.7 Basophils % 0.3 Nucleated Red Blood 0.0 Cells % Immature Granulocytes # 0.020 Neutrophils # 3.6 Lymphocytes # 1.1 Monocytes # 1.0 H Eosinophils # 0.3 Basophils # 0.0 Nucleated Red Blood 0.0 Cells # Sodium Level 139 Potassium Level 5.2 H Chloride Level 101 Carbon Dioxide Level 33 H Anion Gap 5 Blood Urea Nitrogen 19 Creatinine 0.77 Est Glomerular Filtrat > 60 Rate mL/min Glucose Level 95 Calcium Level 9.3 Test 10/27/18 11:57 Bedside Glucose 114 Medications Medication Current Medications Alprazolam (Xanax) 2 mg Q8H PRN GTB ANXIETY Last administered on 10/25/18 23:10; Admin Dose 2 MG; Start 10/20/18 at 02:30 Amlodipine Besylate (Norvasc) 10 mg DAILY PO Last administered on 10/27/18 08:56; Admin Dose 10 MG; Start 10/20/18 at 09:00 Ascorbic Acid (Vitamin C) 250 mg DAILY PO Last administered on 10/27/18 08:55; Admin Dose 250 MG; Start 10/20/18 at 09:00 Clonidine (Catapres) 0.1 mg TID GTB Last administered on 10/26/18 13:28; Admin Dose 0.1 MG; Start 10/20/18 at 09:00 Enoxaparin Sodium (Lovenox) 40 mg DAILY SC Last administered on 10/27/18 09:06; Admin Dose 40 MG; Start 10/20/18 at 09:00 Acetaminophen/ Hydrocodone Bitart ([place] (10325)) 1 tab Q6H PRN GTB MODERATE PAIN 4-6 Last administered on 10/27/18 08:54; Admin Dose 1 TAB; Start 10/20/18 at 02:30 Albuterol/ Ipratropium (Duoneb) 3 ml Q6H RESP THERAPY HHN Last administered on 10/27/18 13:04; Admin Dose 3 ML; Start 10/20/18 at 08:00 Multivitamins/ Minerals (Theragran-M) 1 tab DAILY PO Last administered on 10/27/18 08:55; Admin Dose 1 TAB; Start 10/20/18 at 09:00 Zinc Sulfate (Zinc Sulfate) 220 mg DAILY PO Last administered on 10/27/18 08:55; Admin Dose 220 MG; Start 10/20/18 at 09:00 IV Flush (NS 3 ml) 3 ml PER PROTOCOL IV ; Start 10/20/18 at 02:30 Acetaminophen (Tylenol Supp) 650 mg Q6H PRN [place] .PAIN 1-3 OR TEMP; Start 10/20/18 at 02:30 Morphine Sulfate (morphine) 2 mg Q4H PRN IV .PAIN 7-10 Last administered on 10/27/18 06:50; Admin Dose 2 MG; Start 10/20/18 at 02:30 Diagnostic Test (Pha) (Accu-Chek) 1 ea 02 XX Last administered on 10/26/18at 02:06; Admin Dose 1 EA; Start 10/21/18 at 02:00 Miscellaneous Information 1 ea NOTE XX ; Start 10/20/18 at 03:00 Glucose (Glutose) 15 gm Q15M PRN PO DECREASED GLUCOSE; Start 10/20/18 at 03:00 Glucose (Glutose) 22.5 gm Q15M PRN PO DECREASED GLUCOSE; Start 10/20/18 at 03:00 Dextrose (D50w Syringe) 25 ml Q15M PRN IV DECREASED GLUCOSE; Start 10/20/18 at 03:00 Dextrose (D50w Syringe) 50 ml Q15M PRN IV DECREASED GLUCOSE; Start 10/20/18 at 03:00 Glucagon (Glucagen) 1 mg Q15M PRN IM DECREASED GLUCOSE; Start 10/20/18 at 03:00 Glucose (Glutose) 15 gm Q15M PRN BUCCAL DECREASED GLUCOSE; Start 10/20/18 at 03:00 Ferrous Sulfate (Ferrous Sulfate (Ec)) 325 mg BID PO Last administered on 10/27/18 08:55; Admin Dose 325 MG; Start 10/20/18 at 09:00 Lisinopril (Zestril) 20 mg DAILY PO Last administered on 10/27/18 08:57; Admin Dose 20 MG; Start 10/20/18 at 09:00 Pantoprazole (Protonix Tab) 40 mg AC BREAKFAST PO Last administered on 9at 06:50; Admin Dose 40 MG; Start 10/20/18 at 07:00 Insulin Aspart (Novolog Insulin Pen) (Adult SC Insulin - Mild Algorithm)... AC MEALS AND BEDTIME SC Last administered on 10/26/18at 18:14; Admin Dose 1 UNIT; Start 10/21/18 at 07:00 Meropenem/Sodium Chloride 50 ml @ 100 mls/hr Q12H IVPB Last administered on 10/27/18 05:46; Admin Dose 100 MLS/HR; Start 10/23/18 at 18:30 Magnesium Hydroxide (Milk Of Mag) 30 ml BID PRN PO CONSTIPATION Last administered on 10/26/18 05:50; Admin Dose 30 ML; Start 10/25/18 at 12:00 SAHRA PIZARRO NP Oct 27, 2018 13:55
--- NOTE | 2018-10-27 15:15 | CONS ---
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 MIRAB P.AERUG P.AERUG M.I.C. RX M.I.C. RX M.I.C. RX --------- --- --------- --- --------- --- AMIKACIN 4 S AMPICILLIN >=32 R AZTREONAM I CEFAZOLIN I CEFEPIME 16 I CEFOTAXIME S CEFTAZIDIME 8 S CIPROFLOXACIN >=4 R >=4 R GENTAMICIN <=1 S 4 S LEVOFLOXACIN >=8 R >=8 R MEROPENEM 0.19 S TOBRAMYCIN <=1 S <=1 S TRIMETHOPRIM/SULFAMETHOXAZOLE >=320 R PIPERACILLIN/TAZOBACTAM S * 10/20/18 BCX (+) 1/2 bottles Organism 1 CORYNEBACTERIUM SPECIES * 10/22/18 BCx (-) 24H DIAGNOSTIC IMAGING * 10/22/18 CXR Mild decrease in right lower lung opacities, which may represent improving atelectasis on background of chronic interstitial changes. PHYSICAL EXAMINATION: GENERAL: VSS, NAD HEENT: AT, NC, NECK: Supple, CHEST: Rise symmetrical HEART: Pulse RRR ABDOMEN: EXTREMITIES: Warm, dry SKIN: No rash, no diaphoresis ID ASSESSMENT 67 yo M admit with: 1. SIRS vs early sepsis w/fevers, leukocytosis, tachycardia, SOB on admission * SKIN CONTAMINATED BCX ON ADMISSION = recurrent issue on prior admission * 10/20/18 BCX (+) 1/2 bottles Organism 1 CORYNEBACTERIUM SPECIES * 10/22/18 BCx (-) 24H 2. Acute on chronic respiratory failure 3. Aspiration pneumonitis suspected without full blown PNA * Recurrent silent aspiration see barium swallow results PRIOR ADMISSION 4. Advanced COPD emphysema w/bullous lung disease 5. Long-standing history of intermittent hemoptysis likely from underlying bron chiectasis w/chronic coughing * (-)work up for MTB prior admission 6. Anemia INVASIVES: Trach, Midline ABX ALLERGY: KNDA CURRENT ABX: Day #7 => Merrem #5 s/p Vanco IV s/p Levaquin ID RECOMMENDATIONS/PLAN: 1. Patient with recurrent back to back hospitalizations at various [facility] hospitals over many years for same issue * Chronic end-stage emphysema w/slow decline 2. DC ABX AFTER TONIGHTS DOSE -- DC BACK TO SNF OFF ABX Consultation Date/Type/Reason Admit Date/Time Oct 20, 2018 at 02:04 Initial Consult Date Date/Time of Note DATE: 10/27/18 TIME: 15:14 Exam/Review of Systems Exam Vitals Vital Signs Date Temp Pulse Resp B/P (MAP) Pulse Ox O2 O2 Flow FiO2 Time Delivery Rate 10/27/18 80 18 99 Aerosol 5.0 28 13:05 10/27/18 98.2 94/55 (68) 11:35 Intake and Output 10/26/18 10/26/18 10/27/18 1515:00 23:00 07:00 IntakeIntake Total 350 ml 820 ml 200 ml OutputOutput Total 300 ml 850 ml 1430 ml BalanceBalance 50 ml -30 ml -1230 ml Results Result Diagram: 10/27/1852310/27/18523 Results 24hrs Laboratory Tests Test 10/26/18 17:43 10/26/18 20:38 10/27/18 05:24 10/27/18 07:50 Bedside Glucose 154 135 101 White Blood Count 6.0 Red Blood Count 3.68 L Hemoglobin 9.1 L Hematocrit 30.6 L Mean Corpuscular Volume 83.2 Mean Corpuscular 24.7 L Hemoglobin Mean Corpuscular 29.7 L Hemoglobin Concent Red Cell Distribution 21.7 H Width Platelet Count 169 Mean Platelet Volume 10.8 H Immature Granulocytes % 0.300 Neutrophils % 60.0 Lymphocytes % 17.6 Monocytes % 17.1 H Eosinophils % 4.7 Basophils % 0.3 Nucleated Red Blood 0.0 Cells % Immature Granulocytes # 0.020 Neutrophils # 3.6 Lymphocytes # 1.1 Monocytes # 1.0 H Eosinophils # 0.3 Basophils # 0.0 Nucleated Red Blood 0.0 Cells # Sodium Level 139 Potassium Level 5.2 H Chloride Level 101 Carbon Dioxide Level 33 H Anion Gap 5 Blood Urea Nitrogen 19 Creatinine 0.77 Est Glomerular Filtrat > 60 Rate mL/min Glucose Level 95 Calcium Level 9.3 Test 10/27/18 11:57 Bedside Glucose 114 Medications Medication Current Medications Alprazolam (Xanax) 2 mg Q8H PRN GTB ANXIETY Last administered on 10/25/18 23:10; Admin Dose 2 MG; Start 10/20/18 at 02:30 Amlodipine Besylate (Norvasc) 10 mg DAILY PO Last administered on 10/27/18 08:56; Admin Dose 10 MG; Start 10/20/18 at 09:00 Ascorbic Acid (Vitamin C) 250 mg DAILY PO Last administered on 10/27/18 08:55; Admin Dose 250 MG; Start 10/20/18 at 09:00 Clonidine (Catapres) 0.1 mg TID GTB Last administered on 10/26/18 13:28; Admin Dose 0.1 MG; Start 10/20/18 at 09:00 Enoxaparin Sodium (Lovenox) 40 mg DAILY SC Last administered on 10/27/18 09:06; Admin Dose 40 MG; Start 10/20/18 at 09:00 Acetaminophen/ Hydrocodone Bitart ([place] (10/325)) 1 tab Q6H PRN GTB MODERATE PAIN 4-6 Last administered on 10/27/18 08:54; Admin Dose 1 TAB; Start 10/20/18 at 02:30 Albuterol/ Ipratropium (Duoneb) 3 ml Q6H RESP THERAPY HHN Last administered on 10/27/18 13:04; Admin Dose 3 ML; Start 10/20/18 at 08:00 Multivitamins/ Minerals (Theragran-M) 1 tab DAILY PO Last administered on 10/27/18at 08:55; Admin Dose 1 TAB; Start 10/20/18 at 09:00 Zinc Sulfate (Zinc Sulfate) 220 mg DAILY PO Last administered on 10/27/18at 08:55; Admin Dose 220 MG; Start 10/20/18 at 09:00 IV Flush (NS 3 ml) 3 ml PER PROTOCOL IV ; Start 10/20/18 at 02:30 Acetaminophen (Tylenol Supp) 650 mg Q6H PRN MO .PAIN 1-3 OR TEMP; Start 10/20/18 at 02:30 Morphine Sulfate (morphine) 2 mg Q4H PRN IV .PAIN 7-10 Last administered on 10/27/18at 13:58; Admin Dose 2 MG; Start 10/20/18 at 02:30 Diagnostic Test (Pha) (Accu-Chek) 1 ea 02 XX Last administered on 10/26/18at 02:06; Admin Dose 1 EA; Start 10/21/18 at 02:00 Miscellaneous Information 1 ea NOTE XX ; Start 10/20/18 at 03:00 Glucose (Glutose) 15 gm Q15M PRN PO DECREASED GLUCOSE; Start 10/20/18 at 03:00 Glucose (Glutose) 22.5 gm Q15M PRN PO DECREASED GLUCOSE; Start 10/20/18 at 03:00 Dextrose (D50w Syringe) 25 ml Q15M PRN IV DECREASED GLUCOSE; Start 10/20/18 at 03:00 Dextrose (D50w Syringe) 50 ml Q15M PRN IV DECREASED GLUCOSE; Start 10/20/18 at 03:00 Glucagon (Glucagen) 1 mg Q15M PRN IM DECREASED GLUCOSE; Start 10/20/18 at 03:00 Glucose (Glutose) 15 gm Q15M PRN BUCCAL DECREASED GLUCOSE; Start 10/20/18 at 03:00 Ferrous Sulfate (Ferrous Sulfate (Ec)) 325 mg BID PO Last administered on 10/27/18at 08:55; Admin Dose 325 MG; Start 10/20/18 at 09:00 Lisinopril (Zestril) 20 mg DAILY PO Last administered on 10/27/18at 08:57; Admin Dose 20 MG; Start 7/1/19 at 09:00 Pantoprazole (Protonix Tab) 40 mg AC BREAKFAST PO Last administered on 10/27/18 06:50; Admin Dose 40 MG; Start 10/20/18 at 07:00 Insulin Aspart (Novolog Insulin Pen) (Adult SC Insulin - Mild Algorithm)... AC MEALS AND BEDTIME SC Last administered on 10/26/18 18:14; Admin Dose 1 UNIT; Start 10/21/18 at 07:00 Meropenem/Sodium Chloride 50 ml @ 100 mls/hr Q12H IVPB Last administered on 10/27/18 05:46; Admin Dose 100 MLS/HR; Start 10/23/18 at 18:30 Magnesium Hydroxide (Milk Of Mag) 30 ml BID PRN PO CONSTIPATION Last administered on 10/26/18 05:50; Admin Dose 30 ML; Start 10/25/18 at 12:00 OJ ROMEO NP Oct 27, 2018 15:15
[2018-10-27 15:23] VITALS: BP 92/55; PULSE 80; RESP 20
--- NOTE | 2018-10-27 18:01 | DS ---
Date/Time of Note Date/Time of Note DATE: 10/27/18 TIME: 17:58 Discharge Summary Admission/Discharge Info Admit Date/Time Oct 20, 2018 at 02:04 Discharge Date/Time Discharge Diagnosis 1. Acute on chronic respiratory failure. 2. Aspiration pneumonia. 3. Dysphagia. 4. Hypertension. 5. Normocytic anemia. 6. COPD. Patient Condition: Stable Consults 1. Vamshi Glynn MD, Pulmonary. 2. Mikhail Armstrong MD, Infectious Diseases Procedures Brain CT IMPRESSION: 1. No acute intracranial pathology identified. 2. Mild volume loss, with mild chronic small vessel ischemic changes. Hx of Present Illness This is a 67-year-old male with comorbidities including chronic respiratory fail ure status post tracheostomy, COPD, and hypertension, who came in from a retirement facility because of worsening respiratory distress and was admitted to inpatient setting for further treatment and evaluation. Hospital Course The patient was maintained on supplemental oxygen. The patient has a tracheostomy in place. The patient's tracheostomy was reportedly dislodged. However, as per the ER physician's documentation, the patient did not have his tracheostomy dislodged, rather trach collar was dirty that was switched by the ER physician. A pulmonology consult was obtained. The patient was maintained o n supplemental oxygen via aerosol mask. The patient's sputum culture was positive for Proteus mirabilis and Pseudomonas aeruginosa. The patient was maintained on antimicrobials as per infectious diseases. He has underlying dysphagia. The patient was evaluated by speech therapy. Speech therapy recommended aspiration precautions. The patient demands oral intake despite his high risk for aspiration. The patient is at high risk for aspiration. The patient is aware of the risk and he wishes to continue oral intake. The patient's last video swallow evaluation was on 08/13/2018. The patient has underlying essential hypertension. He was maintained on antihypertensives for the same. He has underlying normocytic anemia, anemia chronic disease. The patient's H&H remained stable. He was continued on iron supplements. He has underlying COPD. He was continued on inhaled bronchodilat ors. The patient came from a retirement facility. The patient verbalized that he has decided not to go back to a retirement facility. The patient therefore will be discharged home. The patient has a caregiver. Home health was arranged to complete the home IV antibiotic therapy. The patient will follow up with his primary care physician in the next 1 to 2 weeks. At this time I would like to thank all the consultants for seeing the patient and providing clinical recommendations. The patient was seen in collaboration with Dr. Renteria. Home Meds Active Scripts Zinc Sulfate* (Zinc Sulfate*) 220 Mg Cap, 220 MG PO DAILY for 30 Days, CAP Prov:MALICK CABA V. CAN COVERER 09/16/18 Enoxaparin Sodium* (Enoxaparin Sodium*) 40 Mg/0.4 Ml Syringe, 40 MG SC DAILY for 30 Days Prov:CABAMELISSA TERRYA V. CAN COVERER 09/16/18 Ferrous Sulfate* (Ferrous Sulfate*) 325 Mg Tabec, 325 MG PO BID, #60 TAB Prov:MALICK CABA V. CAN COVERER 09/16/18 Multivits,Ca,Minerals/Iron/FA (Thera M Plus Tablet) 1 Each Tablet, 1 TAB PO DAILY for 30 Days, TAB Prov:MALICK CABA V. CAN COVERER 09/16/18 Ascorbic Acid (Vitamin C) 250 Mg Tab, 250 MG PO DAILY for 30 Days, TAB Prov:MALICK CABA V. CAN COVERER 09/16/18 Clonidine Hcl* (Clonidine Hcl*) 0.1 Mg Tab, 0.1 MG GTB TID for 30 Days, TAB Prov:MALICK CABA V. CAN COVERER 09/16/18 Lisinopril* (Lisinopril*) 20 Mg Tablet, 20 MG PO DAILY for 30 Days, #30 TAB Prov:FRANKO RENTERIA MD 08/19/18 Amlodipine Besylate* (Amlodipine Besylate*) 10 Mg Tablet, 10 MG PO DAILY for 30 Days, #30 TAB Prov:FRANKO RENTERIA MD 08/19/18 Ipratropium-Albuterol (Ipratropium-Albuterol) 0.5-3 Mg/3 Ml Ampul.neb, 3 ML HHN Q6H RESP THERAPY for 30 Days, #120 DOSE Prov:FRANKO RENTERIA MD 08/19/18 Reported Medications Pantoprazole* (Pantoprazole*) 40 Mg Tablet.dr, 40 MG GTB AC BREAKFAST, TAB 07/17/18 Alprazolam* (Xanax*) 2 Mg Tablet, 2 MG GTB Q8H PRN for ANXIETY, TAB 07/17/18 Hydrocodone/Acetaminophen ([place] 10-325 Tablet) 1 Each Tablet, 1 EACH GTB Q6H PRN for NEEDED, TAB 07/17/18 Discontinued Scripts Ciprofloxacin Hcl* (Ciprofloxacin Hcl*) 500 Mg Tablet, 500 MG PO BID for 10 Days, #20 TAB Prov:CABAMALICK V. CAN COVERER 09/16/18 Prednisone* (Prednisone*) 20 Mg Tab, 40 MG PO DAILY for 3 Days, TAB Prov:MALICK CABA V. CAN COVERER 09/16/18 Follow-up Plan Patient to follow-up with his primary care physician in 1 to 2 weeks. Primary Care Provider Bonita Ahumada MD Time spent on discharge: > 30 minutes Pending Labs RUN TIME: [id number] [place] [address] Corbin Fox M.D. Signal Processing Engineer Beryl Lopez M.D. Co-Signal Processing Engineer JUAN JOSE#: [id number] Name: FAHAD CANALES Age/Sex: 67/M Attend Dr: RODGER MOONEY Acct: [id number] MR# : [id number] : 1950 Location: [facility] [address] Admit: 10/20/18 Specimen: [id number] Status: Complete Toro: 10/20/18-1699 Rcvd: 10/20/18-1824 Source: [facility] Sp Descrip: Procedure Result Microbiology GRAM STAIN Final POLYMORPH. LEUKOCYTE 1+ EPITHELIAL CELLS 1+ GRAM NEGATIVE RODS 1+ RESPIRATORY CULTURE Final Organism 1 PROTEUS MIRABILIS QUANTITY SCANT GROWTH Organism 2 PSEUDOMONAS AERUGINOSA QUANTITY 1+ P. MIRAB P.AERUG P.AERUG M.I.C. RX M.I.C. RX M.I.C. RX --------- --- --------- --- --------- --- AMIKACIN 4 S AMPICILLIN >=32 R AZTREONAM I CEFEPIME 16 I CEFOTAXIME S CEFTAZIDIME 8 S CIPROFLOXACIN >=4 R >=4 R GENTAMICIN <=1 S 4 S LEVOFLOXACIN >=8 R >=8 R MEROPENEM 0.19 S TOBRAMYCIN <=1 S <=1 S TRIMETHOPRIM/SULFAMETHOXAZOLE >=320 R PIPERACILLIN/TAZOBACTAM S - ................................ ............................................................ Flags: Critical Hi = *H Critical Lo = *L Microbiology Abnormal = * Abnormal Hi = H Abnormal Lo = L Blood Bank Abnormal = * Susceptability Flags: S = Sensitive R = Resistant I = Intermediate END OF REPORT Laboratory Tests Test 10/26/18 20:38 10/27/18 05:24 10/27/18 07:50 10/27/18 11:57 Bedside 135 101 114 Glucose mg/dL (70-220) mg/dL (70-220) mg/dL (70-220) White Blood 6.0 Count 10^3/ul (4.8-1 0.8) Red Blood 3.68 Count 10^6/ul (4.70- 6.10) Hemoglobin 9.1 g/dl (14.0-18. 0) Hematocrit 30.6 % (42.0-52.0) Mean 83.2 Corpuscular fl (82.0-101.0 Volume ) Mean 24.7 Corpuscular pg (29.0-33.0) Hemoglobin Mean 29.7 Corpuscular g/dl (32.0-37. Hemoglobin Conc 0) ent Red Cell 21.7 Distribution % (11.5-14.5) Width Platelet Count 169 10^3/UL (140-4 15) Mean Platelet 10.8 Volume fl (7.4-10.4) Immature 0.300 Granulocytes % % (0.001-0.429 ) Neutrophils % 60.0 % (39.0-77.0) Lymphocytes % 17.6 % (15.0-51.0) Monocytes % 17.1 % (0.0-11.0) Eosinophils % 4.7 % (0.0-7.0) Basophils % 0.3 % (0.0-2.0) Nucleated Red 0.0 Blood Cells % /100WBC (0.0-0 .0) Immature 0.020 Granulocytes # 10^3/ul (0.0-0 .031) Neutrophils # 3.6 10^3/ul (1.6-7 .5) Lymphocytes # 1.1 10^3/ul (0.8-2 .9) Monocytes # 1.0 10^3/ul (0.3-0 .9) Eosinophils # 0.3 10^3/ul (0.0-0 .5) Basophils # 0.0 10^3/ul (0.0-0 .1) Nucleated Red 0.0 Blood Cells # 10^3/ul (0.0-0 .0) Sodium Level 139 mmol/L (135-14 4) Potassium 5.2 Level mmol/L (3.5-5. 1) Chloride Level 101 mmol/L (97-110 ) Carbon Dioxide 33 Level mmol/L (21-31) Anion Gap 5 (5-13) Blood Urea 19 Nitrogen mg/dl (7-20) Creatinine 0.77 mg/dl (0.61-1. 24) Est Glomerular > 60 Filtrat mL/min (>60) Rate mL/min Glucose Level 95 mg/dl (70-220) Calcium Level 9.3 mg/dl (8.4-10. 2) Test 10/27/18 17:00 Bedside 92 Glucose mg/dL (70-220) SAHRA PIZARRO NP Oct 27, 2018 18:01
[2018-10-27 20:00] VITALS: BP 108/59; PULSE 77; RESP 20
== END 2018-10-27 21:30 | disposition home health service (06) | DRG 177 ==
LOC: E/R 00:09 → 6WM 02:04
PROVIDERS: ADMIT Family Medicine; ATTEND Internal Medicine
DX: J69.0 Pneumonitis due to inhalation of food and vomit (principal); G93.41 Metabolic encephalopathy; J96.21 Acute and chronic respiratory failure with hypoxia; R04.2 Hemoptysis; R65.10 Systemic inflammatory response syndrome (SIRS) of non-infectious origin without acute organ dysfunction; J43.9 Emphysema, unspecified; R13.10 Dysphagia, unspecified; I10 Essential (primary) hypertension; D64.9 Anemia, unspecified; B96.4 Proteus (mirabilis) (morganii) as the cause of diseases classified elsewhere; B96.5 Pseudomonas (aeruginosa) (mallei) (pseudomallei) as the cause of diseases classified elsewhere; Z93.0 Tracheostomy status; E86.0 Dehydration; J98.4 Other disorders of lung; E16.2 Hypoglycemia, unspecified
CPT/HCPCS: 36415; 36600; 70450; 71045; 80048; 80053; 80202; 82803; 82962; 83605; 83690; 84145; 84484; 85025; 87070; 87081; 89220; 92526; 92610; 93005; 94640; 94644; 96365; 96375; 97116; 97162; J0692; J1650; J1815; J1956; J2060; J2185; J2270; J2920; J2930; J3370; J7030; J7042; J7050

== ENCOUNTER 2018-11-20 05:48 | Inpatient (IN) | payer MEDICARE, OTHER ==
[~2018-11-20] VITALS: Ht 180.3 cm; Wt 67.4 kg
[~2018-11-20 05:48] MED LIST changes: +AMOX1TAB10 PO; -CIPR500T4 PO; -PRED20TA PO
[2018-11-20] MEDS ORDERED: morphine 4 MG/ML VIAL IV STA (06:06)
[2018-11-20] MEDS ORDERED: CEFEPIME 2GM/50 ML (PMX) 50 ML IVPB STA (06:06)
[2018-11-20] MEDS ORDERED: SODIUM CHLORIDE 0.9% 1L BAG IV* STA (06:06)
[2018-11-20] MEDS ORDERED: ONDANSETRON 4 MG INJ IV STA (06:06)
--- NOTE | 2018-11-20 06:17 | ERD ---
ER Documentation Chief Complaint Chief Complaint bib ra from home for sob, trach patient, no vent HPI 68 yo M pmhx of chronic trach who presents to ED from [facility] because of shortness of breath. The patient has been in the hospital almost every month for pneumonia. The patient is describing chest wall pain with coughing. There is s ome bleeding around the trach site. The patient is unknown duration of symptoms or severity of symptoms. Remainder of HPI is very limited, patient arrives with limited documentation. ROS All systems reviewed and are negative except as per history of present illness. Medications Home Meds Active Scripts Zinc Sulfate* (Zinc Sulfate*) 220 Mg Cap, 220 MG PO DAILY for 30 Days, CAP Prov:MALICK CABA NP 09/16/18 Enoxaparin Sodium* (Enoxaparin Sodium*) 40 Mg/0.4 Ml Syringe, 40 MG SC DAILY for 30 Days Prov:MALICK CABA NP 09/16/18 Ferrous Sulfate* (Ferrous Sulfate*) 325 Mg Tabec, 325 MG PO BID, #60 TAB Prov:MALICK CABA NP 09/16/18 Multivits,Ca,Minerals/Iron/FA (Thera M Plus Tablet) 1 Each Tablet, 1 TAB PO DAILY for 30 Days, TAB Prov:MALICK CABA NP 09/16/18 Ascorbic Acid (Vitamin C) 250 Mg Tab, 250 MG PO DAILY for 30 Days, TAB Prov:MALICK CABA NP 09/16/18 Clonidine Hcl* (Clonidine Hcl*) 0.1 Mg Tab, 0.1 MG GTB TID for 30 Days, TAB Prov:MALICK CABA NP 09/16/18 Lisinopril* (Lisinopril*) 20 Mg Tablet, 20 MG PO DAILY for 30 Days, #30 TAB Prov:FRANKO SAUCEDA MD 08/19/18 Amlodipine Besylate* (Amlodipine Besylate*) 10 Mg Tablet, 10 MG PO DAILY for 30 Days, #30 TAB Prov:FRANKO SAUCEDA MD 08/19/18 Ipratropium-Albuterol (Ipratropium-Albuterol) 0.5-3 Mg/3 Ml Ampul.neb, 3 ML HHN Q6H RESP THERAPY for 30 Days, #120 DOSE Prov:FRANKO SAUCEDA MD 08/19/18 Reported Medications Pantoprazole* (Pantoprazole*) 40 Mg Tablet.dr, 40 MG GTB AC BREAKFAST, TAB 07/17/18 Alprazolam* (Xanax*) 2 Mg Tablet, 2 MG GTB Q8H PRN for ANXIETY, TAB 07/17/18 Hydrocodone/Acetaminophen ([place] 10-325 Tablet) 1 Each Tablet, 1 EACH GTB Q6H PRN for NEEDED, TAB 07/17/18 Allergies Allergies: Coded Allergies: No Known Drug Allergies (Verified Allergy, Unknown, 07/17/18) PMhx/Soc Anesthesia Reaction: No Hx Neurological Disorder: No Hx Respiratory Disorders: Yes (copd, respiratory failure, tracheostomy ) Hx Cardiac Disorders: Yes (HTN ) Hx Psychiatric Problems: No Hx Miscellaneous Medical Probl: No Hx Alcohol Use: No Hx Substance Use: No Hx Tobacco Use: No Smoking Status: Never smoker FmHx Family History: No diabetes Physical Exam Vitals Vital Signs Date Temp Pulse Resp B/P (MAP) Pulse Ox O2 O2 Flow FiO2 Time Delivery Rate 11/20/18 101 24 158/83 99 Nasal 2.0 07:37 (108) Cannula 11/20/18 97.0 104 30 170/89 100 Nasal 05:58 (116) Cannula 11/20/18 97.9 106 27 176/98 100 05:58 (124) 11/20/18 Nasal 2 05:50 Cannula Physical Exam General: Thin cachectic male, appears dehydrated Head: Normocephalic, atraumatic. Eyes: Pupils equally reactive, EOM intact ENT: Dry mucous membranes Neck: Supple, no lymphadenopathy, dried blood at trach site Respiratory: Scant rhonchi bilaterally, no distress Cardiovascular: Slight tachycardia, no murmurs, rubs, or gallops Abdominal: Soft, non-tender, non-distended, no peritoneal signs : Deferred MSK: No edema, no unilateral swelling, 5/5 strength Neurologic: Alert and oriented, moving all extremities, no focal weakness, no cerebellar signs Skin: No rash Psych: Normal mood Result Diagram: 11/20/1862111/20/18621 Results 24 hrs Laboratory Tests Test 11/20/18 06:19 11/20/18 06:22 11/20/18 07:07 POC Venous Lactate 3.3 mmol/L White Blood Count 12.4 10^3/ul Red Blood Count 3.88 10^6/ul Hemoglobin 10.0 g/dl Hematocrit 33.5 % Mean Corpuscular Volume 86.3 fl Mean Corpuscular Hemoglobin 25.8 pg Mean Corpuscular Hemoglobin Concent 29.9 g/dl Red Cell Distribution Width 16.8 % Platelet Count 238 10^3/UL Mean Platelet Volume 9.7 fl Immature Granulocytes % 0.400 % Neutrophils % 85.5 % Lymphocytes % 7.2 % Monocytes % 6.3 % Eosinophils % 0.3 % Basophils % 0.3 % Nucleated Red Blood Cells % 0.0 /100WBC Immature Granulocytes # 0.050 10^3/ul Neutrophils # 10.6 10^3/ul Lymphocytes # 0.9 10^3/ul Monocytes # 0.8 10^3/ul Eosinophils # 0.0 10^3/ul Basophils # 0.0 10^3/ul Nucleated Red Blood Cells # 0.0 10^3/ul Prothrombin Time 12.7 Sec Prothrombin Time Ratio 1.0 INR International Normalized Ratio 0.94 Sodium Level 144 mmol/L Potassium Level 3.6 mmol/L Chloride Level 104 mmol/L Carbon Dioxide Level 27 mmol/L Anion Gap 13 Blood Urea Nitrogen 17 mg/dl Creatinine 0.99 mg/dl Est Glomerular Filtrat Rate mL/min > 60 mL/min Glucose Level 47 mg/dl Calcium Level 9.9 mg/dl Total Bilirubin 0.2 mg/dl Direct Bilirubin 0.00 mg/dl Indirect Bilirubin 0.2 mg/dl Aspartate Amino Transf (AST/SGOT) 22 IU/L Alanine Aminotransferase (ALT/SGPT) 16 IU/L Alkaline Phosphatase 87 IU/L Total Protein 7.7 g/dl Albumin 4.2 g/dl Globulin 3.50 g/dl Albumin/Globulin Ratio 1.20 Bedside Glucose 66 mg/dL Current Medications Medications Dose Sig/Jacquelyn Start Time Status Last (Trade) Ordered Route PRN Stop Time Admin Dose Reason Admin Sodium 2,370 ml BOLUS OVER 2 11/20/18 DC 11/20/18 Chloride HOURS STAT 06:06 11/20/18 07:14 (NS) IV* 06:08 Morphine 4 mg ONCE STAT 11/20/18 DC 11/20/18 Sulfate IV 06:06 11/20/18 07:15 (morphine) 06:08 Ondansetron 4 mg ONCE STAT 11/20/18 DC 11/20/18 HCl (Zofran IV 06:06 11/20/18 07:14 Inj) 06:08 Cefepime HCl 50 ml @ ONCE STAT 11/20/18 DC 11/20/18 100 mls/hr IVPB 06:06 11/20/18 07:15 06:35 Vancomycin 250 ml @ ONCE ONCE 11/20/18 HCl 125 mls/hr IVPB 06:30 11/20/18 08:29 Dextrose 50 ml STK-MED 11/20/18 DC (D50w ONCE .ROUTE 07:09 11/20/18 Syringe) 07:10 Dextrose 25 ml ONCE STAT 11/20/18 DC 11/20/18 (D50w IV 07:20 11/20/18 07:34 Syringe) 07:21 Procedures/MDM EKG, MONITORS, & DIAGNOSTIC IMAGING: EKG: I reviewed and interpreted a 12-lead EKG. Rhythm: Normal sinus rhythm ST Changes: No contiguous ST segment elevations T waves: No contiguous T wave inversions Impression: No evidence of acute cardiac ischemia Chest x-ray: IMPRESSION: 1. No congestive heart failure. 2. Pleural parenchymal changes at the right base likely all due to scarring. Small acute basilar infiltrate and tiny right pleural effusion cannot be excluded though felt to be less likely. RPTAT:AAJJ LAB INTERPRETATION: I reviewed the laboratory testing and it shows leukocytosis with lactic acid elevation MEDICAL DECISION MAKING: Patient presents with shortness of breath, bloody trach site, tachypnea and tachycardia. Patient has had frequent visits to the emergency room for healthcare associated pneumonia. Lower clinical concern for pulmonary embolism, dissection, ACS. Patient has Sirs criteria with possible source of infection. Code sepsis initiated. ER COURSE: * 30 cc/kg of normal saline provided, blood cultures prior to broad-spectrum antibiotics. * Analgesia provided * Patient had hypoglycemia treated with dextrose solution. Continue to monitor. * Lactic acid is elevated consistent with severe sepsis. The patient's hemodynamics are reassuring, no indication for central line. He is protecting his airway. CONSULTATION: None DISPOSITION PLAN: Accepting care team and consultations: I discussed the current laboratory data, diagnostic imaging and emergency care provided. Admitting team: Panel team notified via [email or web address] Admitting team indication: Insurance directed sepsis Documentation: Patient's infectious symptoms have not stabilized and the patient is at risk of rapid decompensation. The patient will be admitted for careful hydration, antibiotic therapy, and infectious source control. SEVERE SEPSIS CRITERIA: Infectious source: Healthcare associated pneumonia End organ damage indicated by: [Lactate > 2.0 mmol/L SEPSIS MANAGEMENT Time of recognition of sepsis: Upon MD assessment. Time of recognition of severe sepsis: 6:19 AM. Time of recognition of septic shock: No septic shock at this time. 3 HOUR BUNDLE Blood cultures x 2 before broad-spectrum antibiotics: Yes 30 ml/kg NS bolus completed Initial lactate 3.3 Repeat lactate pending repeat SEPTIC SHOCK ASSESSMENT: No lactic acid > 4.0 No persistent hypotension (SBP < 90 or 40 mmHg drop, MAP < 65) despite 30 mL/kg IV fluid bolus VOLUME REASSESSMENT FOR SEPTIC SHOCK: The patient does not meet criteria for septic shock in the emergency department at this time PERSISTENT HYPOTENSION TREATMENT: Comfort care no Central line not Required Vasopressor started not required I considered further perfusion assessment with CVP measurement, SCVO2, bedside ultrasound volume assessment, passive leg raise, trial of further fluid bolus. And proceeded with 30 ml/kg fluid bolus of NSS, broad spectrum antibiotics, and admission. CRITICAL CARE Critical care time 35 minutes Emergent fluid management while maintaining close respiratory support. Provision of immediate and broad-spectrum antibiotic therapy. Simultaneous assessment for possible sources in order to direct targeted therapy. Consideration for invasive and chemical support to prevent cardiopulmonary collapse. Critical care time is independent of procedures performed. Departure Diagnosis: Primary Impression: Healthcare-associated pneumonia Additional Impressions: Severe sepsis Chronic respiratory failure Respiratory failure complication: unspecified whether with hypoxia or hypercapnia Qualified Codes: J96.10 - Chronic respiratory failure, unspecified whether with hypoxia or hypercapnia Hypoglycemia Dehydration Condition: Stable RAEGAN RUFFIN MD Nov 20, 2018 06:17
[2018-11-20] MEDS ORDERED: VANCOMYCIN 1 GM (PMX) 250 ML IVPB ONE (06:30)
[2018-11-20] MEDS ORDERED: DEXTROSE 50% 50 ML SYRINGE ONE (07:09)
[2018-11-20] MEDS ORDERED: DEXTROSE 50% 50 ML SYRINGE IV STA (07:20)
[2018-11-20] MEDS ORDERED: ONDANSETRON 4 MG INJ IV PRN ×2 (08:00→14:30)
[2018-11-20] MEDS ORDERED: ACETAMINOPHEN 325 MG TAB PO PRN ×2 (08:00→14:30)
--- NOTE | 2018-11-20 09:50 | CONS ---
Assessment/Plan Assessment/Plan Assessment/Plan (Daily) Chest x-ray is essentially unremarkable except for emphysematous changes. Assessment and recommendations; 1. Patient with history of severe COPD and chronic respiratory failure maintained on T-piece admitted with coughing leading to chest pain with marked interval resolution in chest pain. 2. Essentially clear chest x-ray. I am not suspecting any pneumonia. 3. Minimal leukocytosis. 4. Underlying severe emphysema and bronchiectasis with history of recurrent hemoptysis. Continue current supportive care. Obtain chest x-ray in 24 hours. If the x-ray is clear I would recommend stopping antibiotics. Consultation Date/Type/Reason Admit Date/Time Date of Consultation: Nov 20, 2018 Type of Consult Pulmonary Patient is a pleasant 68-year-old gentleman who was sent over to the hospital from long term with complaints of coughing as well as chest pain with coughing with mild shortness of breath. Patient also has a scant hemoptysis. He denies any fever, wheezing. By the time I saw him in the ER, patient was completely symptom-free. Past medical history; 1. History of chronic respiratory failure, maintained on T-piece. 2. History of severe emphysema with bronchiectasis and multiple episodes of hem optysis. Status post extensive work-up in the past. 3. History of G-tube placement in the past with subsequent removal. 4. Multiple admissions at various hospitals for pneumonia and hemoptysis. Medications; reviewed. Allergies; none. Social history; patient has a history of smoking. Family history; noncontributory. Occupational history; patient is currently on disability. 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 Review of systems; denies any headache, seizures, dysphagia. Chest pain has resolved. Come to the very scant cough. Hemoptysis is improving. Denies any fever. Any abdominal pain, nausea, vomiting. Any melena hematochezia. Any edema. Any orthopnea. Any weight loss. General exam; elderly male, awake alert, currently in no distress. Date/Time of Note DATE: 11/20/18 TIME: 09:46 Past Medical History Home Meds Active Scripts Zinc Sulfate* (Zinc Sulfate*) 220 Mg Cap, 220 MG PO DAILY for 30 Days, CAP Prov:MALICK CABA V. [employer]LOBAL SALES DIRECTOR 09/16/18 Enoxaparin Sodium* (Enoxaparin Sodium*) 40 Mg/0.4 Ml Syringe, 40 MG SC DAILY for 30 Days Prov:MALICK CABA NP 09/16/18 Ferrous Sulfate* (Ferrous Sulfate*) 325 Mg Tabec, 325 MG PO BID, #60 TAB Prov:MALICK CABA NP 09/16/18 Multivits,Ca,Minerals/Iron/FA (Thera M Plus Tablet) 1 Each Tablet, 1 TAB PO DAILY for 30 Days, TAB Prov:MALICK CABA V. [employer]LOBAL SALES DIRECTOR 09/16/18 Ascorbic Acid (Vitamin C) 250 Mg Tab, 250 MG PO DAILY for 30 Days, TAB Prov:MALICK CABA V. [employer]LOBAL SALES DIRECTOR 09/16/18 Clonidine Hcl* (Clonidine Hcl*) 0.1 Mg Tab, 0.1 MG GTB TID for 30 Days, TAB Prov:MALICK CABA NP 09/16/18 Lisinopril* (Lisinopril*) 20 Mg Tablet, 20 MG PO DAILY for 30 Days, #30 TAB Prov:FRANKO SAUCEDA MD 08/19/18 Amlodipine Besylate* (Amlodipine Besylate*) 10 Mg Tablet, 10 MG PO DAILY for 30 Days, #30 TAB Prov:FRANKO SAUCEDA MD 08/19/18 Ipratropium-Albuterol (Ipratropium-Albuterol) 0.5-3 Mg/3 Ml Ampul.neb, 3 ML HHN Q6H RESP THERAPY for 30 Days, #120 DOSE Prov:FRANKO SAUCEDA MD 08/19/18 Reported Medications Pantoprazole* (Pantoprazole*) 40 Mg Tablet.dr, 40 MG GTB AC BREAKFAST, TAB 07/17/18 Alprazolam* (Xanax*) 2 Mg Tablet, 2 MG GTB Q8H PRN for ANXIETY, TAB 07/17/18 Hydrocodone/Acetaminophen ([place] 10-325 Tablet) 1 Each Tablet, 1 EACH GTB Q6H PRN for NEEDED, TAB 07/17/18 Medications Current Medications Ondansetron HCl (Zofran Inj) 4 mg ER BRIDGE PRN IV NAUSEA/VOMITING; Start 11/20/18 at 08:00; Stop 11/21/18 at 07:59 Acetaminophen (Tylenol Tab) 650 mg ER BRIDGE PRN PO .MILD PAIN 1-3 OR TEMP; Start 11/20/18 at 08:00; Stop 11/21/18 at 07:59 Allergies: Coded Allergies: No Known Drug Allergies (Verified Allergy, Unknown, 11/20/18) Past Surgical History Past Surgical Hx: other Social History Smoking Status: Never smoker Exam/Review of Systems Exam Vitals Vital Signs Date Temp Pulse Resp B/P (MAP) Pulse Ox O2 O2 Flow FiO2 Time Delivery Rate 11/20/18 101 24 158/83 99 Nasal 2.0 07:37 (108) Cannula 11/20/18 97.0 05:58 Exam HEENT exam; supple neck, no JVD. No lymphadenopathy. Midline trachea. No thyromegaly. Patient is edentulous. Tracheostomy in place. Insertion site is clean. No active hemoptysis seen. No neck masses. Chest exam; diminished but clear breath sounds. S1-S2 audible, no murmurs. Regular rhythm. Abdomen exam; soft, no organomegaly. There is a well-healed epigastric scar. Bowel sounds are audible. Extremity exam; no peripheral edema clubbing. PATTERN FITTER exam; no focal deficit. Results Result Diagram: 11/20/1822 11/20/18 0622 Results 24hrs Laboratory Tests Test 11/20/18 06:00 11/20/18 06:19 11/20/18 06:22 11/20/18 07:07 Troponin I < 0.012 B-Type Natriuretic 333 H Peptide POC Venous Lactate 3.3 *H White Blood Count 12.4 #H Red Blood Count 3.88 L Hemoglobin 10.0 L Hematocrit 33.5 L Mean Corpuscular Volume 86.3 Mean Corpuscular 25.8 L Hemoglobin Mean Corpuscular 29.9 L Hemoglobin Concent Red Cell Distribution 16.8 #H Width Platelet Count 238 # Mean Platelet Volume 9.7 Immature Granulocytes % 0.400 Neutrophils % 85.5 H Lymphocytes % 7.2 L Monocytes % 6.3 Eosinophils % 0.3 Basophils % 0.3 Nucleated Red Blood 0.0 Cells % Immature Granulocytes # 0.050 H Neutrophils # 10.6 H Lymphocytes # 0.9 Monocytes # 0.8 Eosinophils # 0.0 Basophils # 0.0 Nucleated Red Blood 0.0 Cells # Prothrombin Time 12.7 Prothrombin Time Ratio 1.0 INR International 0.94 Normalized Ratio Sodium Level 144 Potassium Level 3.6 Chloride Level 104 Carbon Dioxide Level 27 Anion Gap 13 Blood Urea Nitrogen 17 Creatinine 0.99 Est Glomerular Filtrat > 60 Rate mL/min Glucose Level 47 *L Calcium Level 9.9 Total Bilirubin 0.2 Direct Bilirubin 0.00 Indirect Bilirubin 0.2 Aspartate Amino 22 Transf (AST/SGOT) Alanine 16 Aminotransferase (ALT/SG PT) Alkaline Phosphatase 87 Total Protein 7.7 Albumin 4.2 Globulin 3.50 H Albumin/Globulin Ratio 1.20 Bedside Glucose 66 L Test 11/20/18 08:07 11/20/18 08:08 Bedside Glucose 116 Lactic Acid Level 0.9 Medications Medication Current Medications Ondansetron HCl (Zofran Inj) 4 mg ER BRIDGE PRN IV NAUSEA/VOMITING; Start 11/20/18 at 08:00; Stop 11/21/18 at 07:59 Acetaminophen (Tylenol Tab) 650 mg ER BRIDGE PRN PO .MILD PAIN 1-3 OR TEMP; Start 11/20/18 at 08:00; Stop 11/21/18 at 07:59 CRISTINA MORRIS Nov 20, 2018 09:50
--- NOTE | 2018-11-20 11:05 | CONS ---
DATE OF ADMISSION: 11/20/2018 DATE OF CONSULTATION: 11/20/2018 TYPE OF CONSULTATION: Infectious disease. REASON FOR CONSULTATION: Antibiotic management. HISTORY OF PRESENT ILLNESS: FAHAD Frazier is a 68-year-old male well known to us from previous admissions , who was brought in from home with shortness of breath. The patient has a chronic trach to vent. T he patient comes in actually from nursing home facility because of shortness of breath. He has be en in the hospital almost every month for pneumonia. He describes chest wall pain with coughing and there is some bleeding around the trach site. PAST MEDICAL HISTORY: Include as noted, chronic obstructive pulmonary disease, respiratory failure, hypertension. FAMILY HISTORY: Noncontributory. SOCIAL HISTORY: He does not smoke, drink or abuse drugs. ALLERGIES: NONE TO PENICILLIN, SULFA OR FOODS. MEDICATIONS: Per chart. REVIEW OF SYSTEMS: Noncontributory. PHYSICAL EXAMINATION: GENERAL: The patient is a cachectic male who is dehydrated. VITAL SIGNS: Stable. He is afebrile. His blood pressure is up to 176/98. SKIN: Without generalized rash. HEENT: Within normal limits. NECK: Supple. LYMPH NODES: None palpable. CHEST: Decreased breath sounds at the bases with scattered rhonchi. HEART: Without murmur or gallop, tachycardic. ABDOMEN: Soft, nontender, without organosplenomegaly or masses. EXTREMITIES: Without cyanosis, clubbing, or edema. RECTAL AND GENITAL: Deferred. NEUROLOGIC: No focal neurological abnormalities. ANCILLARY LABORATORY DATA: White count is 12.4, H and H of 10 and 33.5, platelet count 238,000. BUN and creatinine 17/0.99, glucose was random and 47. He has 86% neutrophils. IMAGING STUDIES: Chest x-ray shows pleural parenchymal changes at the right base, likely due to scar ring, small acute basilar infiltrate and tiny right pleural effusion cannot be excluded though felt t o be less likely. Patient was started on vancomycin and cefepime. The patient was seen by Dr. Tom . Patient with COPD, chronic respiratory failure, maintained on a T-piece, admitted with cough as no stephani, the patient has a G-tube. He has a history of G-tube placement in the past with subsequent juan raul, multiple admissions as noted. We will continue him on current therapy. I will dictate my findi ngs to the hospitalists and to Dr. Tom. Dictated By: MIRACLE DELCID MD, JD/MARIA GUADALUPE Conf#: [id number] DID#: [id number]
[2018-11-20] MEDS ORDERED: ALPRAZOLAM 1 MG TAB GTB PRN (14:00)
[2018-11-20] MEDS ORDERED: HYDROCODONE/APAP (10/325) TAB GTB PRN (14:00)
--- NOTE | 2018-11-20 14:06 | HP ---
Date/Time of Note Date/Time of Note DATE: 11/20/18 TIME: 14:06 Assessment/Plan VTE Prophylaxis Pharmacological prophylaxis: LMWH Lines/Catheters IV Catheter Type (from Nrs): Mid Line Assessment/Plan Hospital Course SUBJECTIVE:See HPI OBJECTIVE: Vital signs-see below PHYSICAL EXAM: Constitutional: chronically ill looking male with trach /t-piece HEENT: Head atraumatic and normocephalic. Eyes: Extraocular muscles intact. Anicteric sclerae. Pupils equal bilaterally, reactive to light. NECK: Supple without lymph node. CHEST:. Diminished bibasilar HEART: S1, S2. Regular rate and rhythm. ABDOMEN: Soft/non tender with no rebound tenderness. Bowel sounds were present. EXTREMITIES: No cyanosis, clubbing or edema. NEUROLOGIC: Alert and oriented x1.Follows instructions. Gen.weakness w/ Contracted extremities. No sensory deficit. PSYCHOSOCIAL: mostly nonverbal INTEGUMENTARY: No open wounds. ASSESSMENT AND PLAN:67 yo M w/cystic lung dx,chronic resp fx w/Trach,recent HAP transferred from SNF for SOB/Cough... Recurrent pneumonia w/ possible aspiration -Broad spectrum abx -breathing treatments -ID consult Chronic respiratory failure -On T-piece.Pulmonary toileting -pulm consult History of cystic lung disease, with chronic bloody cough -Stable -continue neb treatments History of COPD -Stable. -DuoNeb breathing treatments Anemia -Stable H&H. -Oral iron Dysphagia -Patient had opted for p.o. although he was recommended multiple times regarding G-tube feeding and risk for aspiration. He was recommended to have nectar thick, pured diet for which he is noncompliant and has been taking a regular diet with thin liquids with frequent aspiration. -ST eval -aspiration precaution Hypoglycemia likely 2/2 inadequate intake -stable VT prophylaxis: Lovenox PUD prophylaxis: Pepcid Rest of the management depend on hospital course. Approximately 60 m spent on this history and physical. Patient was seen in collaboration with Dr. Thomas. Result Diagram: 11/20/1822 11/20/18 0622 Results 24hrs Laboratory Tests Test 11/20/18 06:00 11/20/18 06:19 11/20/18 06:22 11/20/18 07:07 Troponin I < 0.012 B-Type Natriuretic 333 H Peptide POC Venous Lactate 3.3 *H White Blood Count 12.4 #H Red Blood Count 3.88 L Hemoglobin 10.0 L Hematocrit 33.5 L Mean Corpuscular Volume 86.3 Mean Corpuscular 25.8 L Hemoglobin Mean Corpuscular 29.9 L Hemoglobin Concent Red Cell Distribution 16.8 #H Width Platelet Count 238 # Mean Platelet Volume 9.7 Immature Granulocytes % 0.400 Neutrophils % 85.5 H Lymphocytes % 7.2 L Monocytes % 6.3 Eosinophils % 0.3 Basophils % 0.3 Nucleated Red Blood 0.0 Cells % Immature Granulocytes # 0.050 H Neutrophils # 10.6 H Lymphocytes # 0.9 Monocytes # 0.8 Eosinophils # 0.0 Basophils # 0.0 Nucleated Red Blood 0.0 Cells # Prothrombin Time 12.7 Prothrombin Time Ratio 1.0 INR International 0.94 Normalized Ratio Sodium Level 144 Potassium Level 3.6 Chloride Level 104 Carbon Dioxide Level 27 Anion Gap 13 Blood Urea Nitrogen 17 Creatinine 0.99 Est Glomerular Filtrat > 60 Rate mL/min Glucose Level 47 *L Calcium Level 9.9 Total Bilirubin 0.2 Direct Bilirubin 0.00 Indirect Bilirubin 0.2 Aspartate Amino 22 Transf (AST/SGOT) Alanine 16 Aminotransferase (ALT/SG PT) Alkaline Phosphatase 87 Total Protein 7.7 Albumin 4.2 Globulin 3.50 H Albumin/Globulin Ratio 1.20 Bedside Glucose 66 L Test 11/20/18 08:07 11/20/18 08:08 11/20/18 09:32 11/20/18 09:50 Bedside Glucose 116 Lactic Acid Level 0.9 1.1 Urine Color YELLOW Urine Clarity CLEAR Urine pH 6.0 Urine Specific [place] 1.016 Urine Ketones 1+ H Urine Nitrite NEGATIVE Urine Bilirubin NEGATIVE Urine Urobilinogen NEGATIVE Urine Leukocyte Esterase NEGATIVE Urine Hemoglobin NEGATIVE Urine Glucose NEGATIVE Urine Total Protein NEGATIVE HPI/ROS Admit Date/Time Admit Date/Time Hx of Present Illness This is a 68-year-old male who lives in a residential, who is also known to hospitalist team with frequent multiple admission for pneumonia, chronic respiratory failure with tracheostomy, cystic lung disease with chronic hemoptysis, COPD, anemia, dysphagia with history of G-tube removal, now being transferred from residential with cough and shortness of breath. Patient has struck and on T-piece, able to answer questions with mild words. He denied chest pain, palpitation, nausea, vomiting, abdominal pain, loss of conscious, dizziness, diarrhea, fever, chills, or other constitutional symptoms. Labs showed white count 12,400, hemoglobin 10, hematocrit 33.5, blood glucose 47. UA negative. Chest x-ray with no congestive heart failure. There is small acute basilar infiltrate and tiny right pleural effusion. ROS A 12 point review of system was assessed and is negative other than what is mentioned in the HPI PMH/Family/Social Past Medical History See HPI Medications Current Medications Ondansetron HCl (Zofran Inj) 4 mg ER BRIDGE PRN IV NAUSEA/VOMITING; Start 11/20/18 at 08:00; Stop 11/21/18 at 07:59 Acetaminophen (Tylenol Tab) 650 mg ER BRIDGE PRN PO .MILD PAIN 1-3 OR TEMP; Start 11/20/18 at 08:00; Stop 11/21/18 at 07:59 Alprazolam (Xanax) 2 mg Q8H PRN GTB ANXIETY; Start 11/20/18 at 14:00; Status UNV Amlodipine Besylate (Norvasc) 10 mg DAILY PO ; Start 11/21/18 at 09:00; Status UNV Ascorbic Acid (Vitamin C) 250 mg DAILY PO ; Start 11/21/18 at 09:00; Status UNV Clonidine (Catapres) 0.1 mg TID GTB ; Start 11/20/18 at 21:00; Status UNV Enoxaparin Sodium (Lovenox) 40 mg DAILY SC ; Start 11/21/18 at 09:00; Status UNV Ferrous Sulfate (Ferrous Sulfate (Ec)) 325 mg BID PO ; Start 11/20/18 at 21:00; Status UNV Acetaminophen/ Hydrocodone Bitart ([place] (10/325)) 1 tab Q6H PRN GTB NEEDED; Start 11/20/18 at 14:00; Status UNV Lisinopril (Zestril) 20 mg DAILY PO ; Start 11/21/18 at 09:00; Status UNV Multivitamins/ Minerals (Theragran-M) 1 tab DAILY PO ; Start 11/21/18 at 09:00; Status UNV Zinc Sulfate (Zinc Sulfate) 220 mg DAILY PO ; Start 11/21/18 at 09:00; Status UNV Lansoprazole (Prevacid) 30 mg DAILY@06 GTB ; Start 11/21/18 at 06:00; Status UNV Coded Allergies: No Known Drug Allergies (Verified Allergy, Unknown, 11/20/18) Past Surgical History See HPI Past Surgical Hx: other Family History Significant Family History: no pertinent family hx, other Social History Denied history of alcohol, smoking or illicit drug use Smoking Status: Never smoker Exam/Review of Systems Vital Signs Vitals Vital Signs Date Temp Pulse Resp B/P (MAP) Pulse Ox O2 O2 Flow FiO2 Time Delivery Rate 11/20/18 88 18 150/98 100 Trach 13:00 (115) Collar 11/20/18 5.0 28 10:18 11/20/18 97.0 05:58 MALICK CABA NP Nov 20, 2018 14:06
[2018-11-20] MEDS ORDERED: NACL 0.9% 3 ML SYG IV SCH (14:30)
[2018-11-20] MEDS ORDERED: VANCOMYCIN IV PER PHARMACY XX SCH (14:30)
[2018-11-20] MEDS ORDERED: ALPRAZOLAM 1 MG TAB PO PRN (16:00)
[2018-11-20] MEDS: DEXTROSE 5%-0.45% NACL 1,000 ML IV SCH (17:38)
[2018-11-20 18:06] VITALS: BP 155/91; PULSE 102; RESP 22
[2018-11-20] MEDS: morphine 2 MG INJ IV PRN ×2 (18:21→22:00)
[2018-11-20 20:00] VITALS: BP 172/92; PULSE 80; RESP 18; Ht 180.3 cm; Wt 67.4 kg
[2018-11-20] MEDS: FERROUS SULFATE (EC) 325 MG TAB PO SCH (20:22)
[2018-11-20] MEDS: CEFEPIME 1GM/50 ML (PMX) 50 ML IVPB SCH (22:01)
[2018-11-20] MEDS: VANCOMYCIN 1 GM 250 ML IVPB SCH (23:07)
[2018-11-21] VITALS: BP 140/72; PULSE 72; RESP 19
[2018-11-21] MEDS: morphine 2 MG INJ IV PRN ×2 (03:00→09:19)
[2018-11-21] MEDS: DEXTROSE 5%-0.45% NACL 1,000 ML IV SCH ×2 (03:30→16:29)
[2018-11-21 03:59] VITALS: BP 140/70; PULSE 80; RESP 18
[2018-11-21] MEDS ORDERED: LANSOPRAZOLE 30 MG CAP GTB SCH (06:00)
[2018-11-21] MEDS: PANTOPRAZOLE (EC) 40 MG TAB PO SCH (06:46)
[2018-11-21 07:22] VITALS: BP 136/75; PULSE 89; RESP 18
[2018-11-21] MEDS: VANCOMYCIN 1 GM 250 ML IVPB SCH (08:33)
[2018-11-21] MEDS: FERROUS SULFATE (EC) 325 MG TAB PO SCH ×2 (09:05→20:34)
[2018-11-21] MEDS: MULTIVITAMINS/MINERALS TAB PO SCH (09:05)
[2018-11-21] MEDS: ZINC SULFATE 220 MG CAP PO SCH (09:05)
[2018-11-21] MEDS: ASCORBIC ACID 250 MG TAB PO SCH (09:06)
[2018-11-21] MEDS: LISINOPRIL 20 MG TAB PO SCH (09:10)
[2018-11-21] MEDS: AMLODIPINE 10 MG TAB PO SCH (09:10)
[2018-11-21] MEDS: ENOXAPARIN 40 MG/0.4 ML SYG SC SCH (09:15)
[2018-11-21] MEDS: CEFEPIME 1GM/50 ML (PMX) 50 ML IVPB SCH (09:23)
[2018-11-21] MEDS ORDERED: traMADol 50 MG TAB PO PRN (10:30)
[2018-11-21 11:13] VITALS: BP 105/59; PULSE 88; RESP 16
--- NOTE | 2018-11-21 11:54 | CONS ---
Consultation Date/Type/Reason Admit Date/Time Nov 20, 2018 at 07:57 Initial Consult Date 11/20/18 Type of Consult Pulmonary Patient is a pleasant 68-year-old gentleman who was sent over to the hospital from long-term with complaints of coughing as well as chest pain with coughing with mild shortness of breath. Patient also has a scant hemoptysis. He denies any fever, wheezing. By the time I saw him in the ER, patient was completely symptom-free. Past medical history; 1. History of chronic respiratory failure, maintained on T-piece. 2. History of severe emphysema with bronchiectasis and multiple episodes of hemoptysis. Status post extensive work-up in the past. 3. History of G-tube placement in the past with subsequent removal. 4. Multiple admissions at various hospitals for pneumonia and hemoptysis. Medications; reviewed. Allergies; none. Social history; patient has a history of smoking. Family history; noncontributory. Occupational history; patient is currently on disability. 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 Review of systems; denies any headache, seizures, dysphagia. Chest pain has resolved. Come to the very scant cough. Hemoptysis is improving. Denies any fever. Any abdominal pain, nausea, vomiting. Any melena hematochezia. Any edema. Any orthopnea. Any weight loss. General exam; elderly male, awake alert, currently in no distress. Date/Time of Note DATE: 11/21/18 TIME: 11:52 24 HR Interval Summary Free Text/Dictation Patient's condition is stable. Denies any chest pain. Complains of chronic cough. Denies any sputum production or hemoptysis. General exam; elderly male, awake alert, currently no distress. HEENT exam; supple neck, no JVD. No lymphadenopathy. Midline trachea. No thyromegaly. Tracheostomy in place. Insertion site is clean. Patient is edentulous. No neck masses. Chest exam; diminished but clear breath sounds. S1-S2 audible, no murmurs. Regular rhythm. Abdomen exam; soft, nontender. No organomegaly. Bowel sounds are audible. There is a well-healed epigastric scar. Extremity exam; no peripheral edema clubbing. MILLER HELPER exam; no focal deficit. Chest x-ray was reviewed from today which is showing chronic appearing right lower lobe changes. Assessment recommendations; 1. Patient with history of chronic respiratory failure maintained on T-piece admitted for chest pain likely from bouts of coughing. 2. Chronic history of intermittent hemoptysis due to underlying severe emphysema/bronchiectasis. Status post extensive work-up in the past. 3. History of hypertension. Consider discharge back to long-term off antibiotics. However I would defer antibiotic treatment to ID vmware consultant. Exam/Review of Systems Exam Vitals Vital Signs Date Temp Pulse Resp B/P (MAP) Pulse Ox O2 O2 Flow FiO2 Time Delivery Rate 11/21/18 98.2 88 16 105/59 98 11:13 (74) 11/21/18 Aerosol 5.0 28 08:39 T Tube Intake and Output 11/20/18 11/20/18 11/21/18 1515:00 23:00 07:00 IntakeIntake Total 50 ml 780 ml OutputOutput Total 240 ml 450 ml BalanceBalance -190 ml 330 ml Results Result Diagram: 11/21/18 0548 11/21/18 0548 Results 24hrs Laboratory Tests Test 11/21/18 05:48 White Blood Count 7.7 # Red Blood Count 3.47 L Hemoglobin 8.8 L Hematocrit 29.7 L Mean Corpuscular Volume 85.6 Mean Corpuscular Hemoglobin 25.4 L Mean Corpuscular Hemoglobin Concent 29.6 L Red Cell Distribution Width 16.6 H Platelet Count 219 Mean Platelet Volume 10.0 Immature Granulocytes % 0.400 Neutrophils % 79.2 H Lymphocytes % 9.4 L Monocytes % 10.0 Eosinophils % 0.9 Basophils % 0.1 Nucleated Red Blood Cells % 0.0 Immature Granulocytes # 0.030 Neutrophils # 6.1 Lymphocytes # 0.7 L Monocytes # 0.8 Eosinophils # 0.1 Basophils # 0.0 Nucleated Red Blood Cells # 0.0 Sodium Level 142 Potassium Level 4.1 Chloride Level 104 Carbon Dioxide Level 32 H Anion Gap 6 Blood Urea Nitrogen 9 Creatinine 0.73 Est Glomerular Filtrat Rate mL/min > 60 Glucose Level 98 # Calcium Level 8.8 Phosphorus Level 2.9 Magnesium Level 1.6 L Total Bilirubin 0.3 Direct Bilirubin 0.00 Indirect Bilirubin 0.3 Aspartate Amino Transf (AST/SGOT) 26 Alanine Aminotransferase (ALT/SGPT) 22 Alkaline Phosphatase 64 Total Protein 6.8 Albumin 3.4 Globulin 3.40 H Albumin/Globulin Ratio 1.00 Medications Medication Current Medications Amlodipine Besylate (Norvasc) 10 mg DAILY PO Last administered on 11/21/18 09:10; Admin Dose 10 MG; Start 11/21/18 at 09:00 Ascorbic Acid (Vitamin C) 250 mg DAILY PO Last administered on 11/21/18 09:06; Admin Dose 250 MG; Start 11/21/18 at 09:00 Enoxaparin Sodium (Lovenox) 40 mg DAILY SC Last administered on 11/21/18 09:15; Admin Dose 40 MG; Start 11/21/18 at 09:00 Ferrous Sulfate (Ferrous Sulfate (Ec)) 325 mg BID PO Last administered on 11/21/18 09:05; Admin Dose 325 MG; Start 11/20/18 at 21:00 Lisinopril (Zestril) 20 mg DAILY PO Last administered on 11/21/18 09:10; Admin Dose 20 MG; Start 11/21/18 at 09:00 Multivitamins/ Minerals (Theragran-M) 1 tab DAILY PO Last administered on 11/21/18 09:05; Admin Dose 1 TAB; Start 11/21/18 at 09:00 Zinc Sulfate (Zinc Sulfate) 220 mg DAILY PO Last administered on 11/21/18 09:05; Admin Dose 220 MG; Start 11/21/18 at 09:00 IV Flush (NS 3 ml) 3 ml PER PROTOCOL IV ; Start 11/20/18 at 14:30 Ondansetron HCl (Zofran Inj) 4 mg Q6H PRN IV NAUSEA/VOMITING; Start 11/20/18 at 14:30 Acetaminophen (Tylenol Tab) 650 mg Q6H PRN PO .PAIN 1-3 OR TEMP; Start 11/20/18 at 14:30 Cefepime HCl 50 ml @ 100 mls/hr Q12 IVPB Last administered on 11/21/18 09:23; Admin Dose 100 MLS/HR; Start 11/20/18 at 21:00 Vancomycin HCl (Vanco Iv Per Pharmacy) VANCOMYCIN PER PHARMACY PER PROTOCOL XX ; Start 11/20/18 at 14:30 Vancomycin HCl 250 ml @ 125 mls/hr Q12H IVPB Last administered on 11/21/18at 08 :33; Admin Dose 125 MLS/HR; Start 11/20/18 at 20:00 Acetaminophen/ Hydrocodone Bitart ([place] (10/325)) 1 tab Q6H PRN PO NEEDED; Start 11/20/18 at 20:00 Dextrose/Sodium Chloride 1,000 ml @ 80 mls/hr [id number] IV Last administered on 11/20/18at 17:38; Admin Dose 80 MLS/HR; Start 11/20/18 at 15:00 Pantoprazole (Protonix Tab) 40 mg DAILY@06 PO Last administered on 11/21/18at 06:46; Admin Dose 40 MG; Start 11/21/18 at 06:00 Miscellaneous Information (*Rx Drug Level Order Reminder*) VANCOMYCIN TROUGH @ 930 ON... 1930 ONCE XX ; Start 11/21/18 at 19:30; Stop 11/21/18 at 19:31 Clonidine (Catapres) 0.1 mg TID PRN PO sbp>160; Start 11/21/18 at 10:30 Metronidazole 100 ml @ 100 mls/hr Q8 IVPB ; Start 11/21/18 at 14:00 Tramadol HCl (Ultram) 50 mg Q6H PRN PO MODERATE PAIN LEVEL 4-6; Start 11/21/18 at 10:30 CRISTINA MORRIS Nov 21, 2018 11:54
[2018-11-21] MEDS ORDERED: metroNIDAZOLE 500 MG/NS (PMX) 100 ML IVPB SCH (14:00)
[2018-11-21] MEDS: HYDROCODONE/APAP (10/325) TAB PO PRN ×2 (14:00→19:43)
[2018-11-21] MEDS ORDERED: ALBUTEROL/IPRATROPIUM (NEB) 3 ML AMP HHN PRN (14:30)
[2018-11-21 15:08] VITALS: BP 112/61; PULSE 98; RESP 18
--- NOTE | 2018-11-21 16:20 | CONS ---
Assessment/Plan Assessment/Plan Hospital Course (Demo Recall) Patient is alert denies pain looks comfortable. No fevers overnight. Indwelling: Tracheostomy Antimicrobials: Vancomycin, cefepime, Flagyl WBC 7.7 H&H 8.8 and 29.7 platelets 219 neutrophils 79.2 BUN 9 creatinine 0.73 Microbiology: Blood cultures negative Chest x-ray this morning revealed mild increase in asymmetric right mid and basilar lung patchy opacities. Please see full report in the chart. PHYSICAL EXAMINATION: GENERAL: This is a chronically ill-appearing, cachectic, elderly - [place] man, who is alert, in no distress. HEENT: Head atraumatic, normocephalic. Sclerae anicteric. Buccal mucosa dry. NECK: Supple. Tracheostomy present. CHEST: Rise symmetrical. Breath sounds diminished to bases with scattered rhonchi. HEART: S1, S2. ABDOMEN: Soft, bowel sounds present. EXTREMITIES: Without cyanosis. Assessment: 1. Acute on chronic hypoxemic respiratory failure 2. Bullous emphysema with acute bronchitis and possible aspiration pneumonitis 3. Cachexia 4. History of hemoptysis Plan: Stable, pulmonary recommendations noted, patient previously grew Pse udomonas in his sputum, will change antibiotics to tobramycin Consultation Date/Type/Reason Admit Date/Time Nov 20, 2018 at 07:57 Initial Consult Date 11/20/18 Type of Consult id Date/Time of Note DATE: 11/21/18 TIME: 16:18 Exam/Review of Systems Exam Vitals Vital Signs Date Temp Pulse Resp B/P (MAP) Pulse Ox O2 O2 Flow FiO2 Time Delivery Rate 11/21/18 97.9 98 18 112/61 95 15:08 (78) 11/21/18 5.0 28 12:51 11/21/18 Aerosol 12:51 T Tube Intake and Output 11/20/18 11/20/18 11/21/18 1515:00 23:00 07:00 IntakeIntake Total 50 ml 780 ml OutputOutput Total 240 ml 450 ml BalanceBalance -190 ml 330 ml Results Result Diagram: 11/21/18 0548 11/21/18 0548 Results 24hrs Laboratory Tests Test 11/21/18 05:48 White Blood Count 7.7 # Red Blood Count 3.47 L Hemoglobin 8.8 L Hematocrit 29.7 L Mean Corpuscular Volume 85.6 Mean Corpuscular Hemoglobin 25.4 L Mean Corpuscular Hemoglobin Concent 29.6 L Red Cell Distribution Width 16.6 H Platelet Count 219 Mean Platelet Volume 10.0 Immature Granulocytes % 0.400 Neutrophils % 79.2 H Lymphocytes % 9.4 L Monocytes % 10.0 Eosinophils % 0.9 Basophils % 0.1 Nucleated Red Blood Cells % 0.0 Immature Granulocytes # 0.030 Neutrophils # 6.1 Lymphocytes # 0.7 L Monocytes # 0.8 Eosinophils # 0.1 Basophils # 0.0 Nucleated Red Blood Cells # 0.0 Sodium Level 142 Potassium Level 4.1 Chloride Level 104 Carbon Dioxide Level 32 H Anion Gap 6 Blood Urea Nitrogen 9 Creatinine 0.73 Est Glomerular Filtrat Rate mL/min > 60 Glucose Level 98 # Calcium Level 8.8 Phosphorus Level 2.9 Magnesium Level 1.6 L Total Bilirubin 0.3 Direct Bilirubin 0.00 Indirect Bilirubin 0.3 Aspartate Amino Transf (AST/SGOT) 26 Alanine Aminotransferase (ALT/SGPT) 22 Alkaline Phosphatase 64 Total Protein 6.8 Albumin 3.4 Globulin 3.40 H Albumin/Globulin Ratio 1.00 Medications Medication Current Medications Amlodipine Besylate (Norvasc) 10 mg DAILY PO Last administered on 11/21/18 09:10; Admin Dose 10 MG; Start 11/21/18 at 09:00 Ascorbic Acid (Vitamin C) 250 mg DAILY PO Last administered on 11/21/18 09:06; Admin Dose 250 MG; Start 11/21/18 at 09:00 Enoxaparin Sodium (Lovenox) 40 mg DAILY SC Last administered on 11/21/18 09:15; Admin Dose 40 MG; Start 11/21/18 at 09:00 Ferrous Sulfate (Ferrous Sulfate (Ec)) 325 mg BID PO Last administered on 11/21/18 09:05; Admin Dose 325 MG; Start 11/20/18 at 21:00 Lisinopril (Zestril) 20 mg DAILY PO Last administered on 11/21/18 09:10; Admin Dose 20 MG; Start 11/21/18 at 09:00 Multivitamins/ Minerals (Theragran-M) 1 tab DAILY PO Last administered on 11/21/18 09:05; Admin Dose 1 TAB; Start 11/21/18 at 09:00 Zinc Sulfate (Zinc Sulfate) 220 mg DAILY PO Last administered on 8/2/19at 09:05; Admin Dose 220 MG; Start 11/21/18 at 09:00 IV Flush (NS 3 ml) 3 ml PER PROTOCOL IV ; Start 11/20/18 at 14:30 Ondansetron HCl (Zofran Inj) 4 mg Q6H PRN IV NAUSEA/VOMITING; Start 11/20/18 at 14:30 Acetaminophen (Tylenol Tab) 650 mg Q6H PRN PO .PAIN 1-3 OR TEMP; Start 11/20/18 at 14:30 Cefepime HCl 50 ml @ 100 mls/hr Q12 IVPB Last administered on 11/21/18at 09:23; Admin Dose 100 MLS/HR; Start 11/20/18 at 21:00 Vancomycin HCl (Vanco Iv Per Pharmacy) VANCOMYCIN PER PHARMACY PER PROTOCOL XX ; Start 11/20/18 at 14:30 Vancomycin HCl 250 ml @ 125 mls/hr Q12H IVPB Last administered on 11/21/18at 08:33; Admin Dose 125 MLS/HR; Start 11/20/18 at 20:00 Acetaminophen/ Hydrocodone Bitart ([place] (10/325)) 1 tab Q6H PRN PO NEEDED Last administered on 11/21/18at 14:00; Admin Dose 1 TAB; Start 11/20/18 at 20:00 Dextrose/Sodium Chloride 1,000 ml @ 80 mls/hr [id number] IV Last administered on 11/20/18at 17:38; Admin Dose 80 MLS/HR; Start 11/20/18 at 15:00 Pantoprazole (Protonix Tab) 40 mg DAILY@06 PO Last administered on 11/21/18at 06:46; Admin Dose 40 MG; Start 11/21/18 at 06:00 Miscellaneous Information (*Rx Drug Level Order Reminder*) VANCOMYCIN TROUGH @ 930 ON... 1930 ONCE XX ; Start 11/21/18 at 19:30; Stop 11/21/18 at 19:31 Clonidine (Catapres) 0.1 mg TID PRN PO sbp>160; Start 11/21/18 at 10:30 Metronidazole 100 ml @ 100 mls/hr Q8 IVPB Last administered on 11/21/18at 13:59; Admin Dose 100 MLS/HR; Start 11/21/18 at 14:00 Tramadol HCl (Ultram) 50 mg Q6H PRN PO MODERATE PAIN LEVEL 4-6; Start 11/21/18 at 10:30 Albuterol/ Ipratropium (Duoneb) 3 ml Q4H RESP THERAPY HHN ; Start 11/21/18 at 17:00 Albuterol/ Ipratropium (Duoneb) 3 ml Q2H RESP THERAPY PRN HHN sob; Start 11/21/18 at 14:30 PATEL MURPHY NP Nov 21, 2018 16:20
[2018-11-21] MEDS ORDERED: TOBRAMYCIN IV PER PHARMACY XX SCH (16:30)
[2018-11-21] MEDS: ALBUTEROL/IPRATROPIUM (NEB) 3 ML AMP HHN SCH ×2 (16:46→21:11)
[2018-11-21 20:00] VITALS: BP 117/59; PULSE 84; RESP 19
[2018-11-21] MEDS: TOBRAMYCIN IVPB SCH (20:35)
[2018-11-21] MEDS: DEXTROSE 5% IVPB SCH (20:35)
[2018-11-22] VITALS (7 sets, daily range): BP systolic 118–148; BP diastolic 59–76; PULSE 69–90; RESP 18–20
[2018-11-22] MEDS: ALBUTEROL/IPRATROPIUM (NEB) 3 ML AMP HHN SCH ×6 (01:17→20:25)
[2018-11-22] MEDS: HYDROCODONE/APAP (10/325) TAB PO PRN ×4 (02:51→20:07)
[2018-11-22] MEDS: DEXTROSE 5%-0.45% NACL 1,000 ML IV SCH ×3 (04:14→17:45)
[2018-11-22] MEDS: PANTOPRAZOLE (EC) 40 MG TAB PO SCH (05:54)
[2018-11-22] MEDS: LISINOPRIL 20 MG TAB PO SCH (09:14)
[2018-11-22] MEDS: ZINC SULFATE 220 MG CAP PO SCH (09:15)
[2018-11-22] MEDS: MULTIVITAMINS/MINERALS TAB PO SCH (09:16)
[2018-11-22] MEDS: FERROUS SULFATE (EC) 325 MG TAB PO SCH ×2 (09:16→20:07)
[2018-11-22] MEDS: ASCORBIC ACID 250 MG TAB PO SCH (09:16)
[2018-11-22] MEDS: AMLODIPINE 10 MG TAB PO SCH (09:16)
[2018-11-22] MEDS: ENOXAPARIN 40 MG/0.4 ML SYG SC SCH (09:20)
--- NOTE | 2018-11-22 10:43 | PDOCDIS ---
Discharge Instructions CONDITION [id number] Patient Condition: [id number] Stable HOME CARE INSTRUCTIONS: [id number] Special Diet: [id number] Mechanical soft nectar thick liquid [id number] Your diet recommendation is: [id number] Ground textures/moist.no thin liquids/no straw/meds crush w/apple sauce FOLLOW UP/APPOINTMENTS Follow-up Plan 1.YOU HAVE RECEIVED A MEDICAL TREATMENT AT [facility] AND YOUR CONDITION IS STABLE AND CAN BE FOLLOWED UP OUTPATIENT. FURTHER FOLLOW-UPS CAN WAIT UNTIL YOU ARE SEEN IN YOUR DOCTORS OFFICE WITHIN THE NEXT 1-2 DAYS. IT IS YOUR RESPONSIBILITY TO MAKE AN APPOINTMENT FOR FOLOW-UP CARE. IF YOU HAVE A PRIMARY DOCTOR --you should call your primary doctor in 1-2 days and schedule an appointment IF YOU DO NOT HAVE A PRIMARY DOCTOR YOU CAN CALL OUR PHYSICIAN REFERRAL HOTLINE AT IF YOU CAN NOT AFFORD TO SEE A PHYSICIAN YOU CAN CHOSE FROM THE FOLLOWING FORMERLY [facility] [id number] [facility]. [facility] [address] [facility] [address] [facility] [facility] [address] [facility] [facility] [address] [facility]. [facility]. [address]. Call [phone] or go to the nearest emergency room if experiencing loss of consciousness, dizziness, chest pain, shortness of breath, vomiting/abdominal pain, speech difficulties, motor weakness or any unusual symptoms. DIET: Please follow instructions provided by your provider and your speech therapy regarding your diet restrictions. You were recommended to continue a mechanical soft nectar nectar thick liquid with the following special instructions:Ground textures/moist!!!!! No straws!! Crushed medication with apple sauce. MALICK CABA NP Nov 22, 2018 10:43
--- NOTE | 2018-11-22 10:49 | PN ---
Date/Time of Note Date/Time of Note DATE: 11/21/18 (LATE NOTE FOR SERVICE PROVIDED 11/21/2018) TIME: 10:47 Assessment/Plan VTE Prophylaxis Risk score (from Ns)>0 risk: 3 SCD applied (from [facility] [place]): No SCD contraindicated: other Pharmacological prophylaxis: LMWH Lines/Catheters IV Catheter Type (from [facility]): Peripheral IV Urinary Cath still in place: No Assessment/Plan Hospital Course SUBJECTIVE: Patient is very drowsy and lethargic. He received morphine and lorazepam. OBJECTIVE: Vital signs-see below PHYSICAL EXAM: Constitutional: chronically ill looking male with trach /t-piece HEENT: Head atraumatic and normocephalic. Eyes: Extraocular muscles intact. Anicteric sclerae. Pupils equal bilaterally, reactive to light. NECK: Supple without lymph node. CHEST:. Diminished bibasilar HEART: S1, S2. Regular rate and rhythm. ABDOMEN: Soft/non tender with no rebound tenderness. Bowel sounds were present. EXTREMITIES: No cyanosis, clubbing or edema. NEUROLOGIC: Alert and oriented x1.Follows instructions. Gen.weakness w/ Contracted extremities. No sensory deficit. PSYCHOSOCIAL: mostly nonverbal INTEGUMENTARY: No open wounds. ASSESSMENT AND PLAN:67 yo M w/cystic lung dx,chronic resp fx w/Trach,recent HAP transferred from SNF for SOB/Cough... Recurrent pneumonia w/ possible aspiration -Add Flagyl -Continue cefepime and consider continuation of vancomycin -breathing treatments Chronic respiratory failure -On T-piece.Pulmonary toileting History of cystic lung disease, with chronic bloody cough -Stable -continue neb treatments History of COPD -Stable. -DuoNeb breathing treatments Anemia -Stable H&H. -Oral iron Dysphagia -Patient had opted for p.o. although he was recommended multiple times regarding G-tube feeding and risk for aspiration. He was recommended to have nectar thick, pured diet for which he is noncompliant and has been taking a regular diet with thin liquids with frequent aspiration. -ST eval-discussed with patient regarding compliance with diet order. -aspiration precaution Hypoglycemia likely 2/2 inadequate intake -stable VT prophylaxis: Lovenox PUD prophylaxis: Pepcid Disposition: Discontinue opiates and benzodiazepine. Continue with appropriate diet. Keep aspiration precaution. Will add Flagyl to current regimen. I discussed with patient regarding CODE STATUS and he wants to proceed with a full code with full resuscitation. Patient also not receptive to go to a fdc. Patient was seen in collaboration with Dr. Thomas. Result Diagram: 11/22/1856 11/22/1856 Results 24hrs Laboratory Tests Test 11/21/18 19:30 11/22/18 05:56 Vancomycin Level Trough 12.4 White Blood Count 5.8 # Red Blood Count 3.34 L Hemoglobin 8.6 L Hematocrit 29.0 L Mean Corpuscular Volume 86.8 Mean Corpuscular Hemoglobin 25.7 L Mean Corpuscular Hemoglobin Concent 29.7 L Red Cell Distribution Width 16.8 H Platelet Count 195 Mean Platelet Volume 10.1 Immature Granulocytes % 0.300 Neutrophils % 72.3 Lymphocytes % 13.6 L Monocytes % 12.0 H Eosinophils % 1.5 Basophils % 0.3 Nucleated Red Blood Cells % 0.0 Immature Granulocytes # 0.020 Neutrophils # 4.2 Lymphocytes # 0.8 Monocytes # 0.7 Eosinophils # 0.1 Basophils # 0.0 Nucleated Red Blood Cells # 0.0 Sodium Level 139 Potassium Level 3.6 Chloride Level 103 Carbon Dioxide Level 31 Anion Gap 5 Blood Urea Nitrogen 7 Creatinine 0.72 Est Glomerular Filtrat Rate mL/min > 60 Glucose Level 125 Calcium Level 8.7 Random Tobramycin Level 4.1 Exam/Review of Systems Exam Vitals Vital Signs Date Temp Pulse Resp B/P (MAP) Pulse Ox O2 O2 Flow FiO2 Time Delivery Rate 11/22/18 74 20 100 Aerosol 5.0 28 08:01 11/22/18 97.6 130/63 07:17 (85) Intake and Output 11/21/18 11/21/18 11/22/18 1515:00 23:00 07:00 IntakeIntake Total 50 ml 819 ml OutputOutput Total 200 ml 1100 ml 750 ml BalanceBalance -150 ml -281 ml -750 ml Results Results 24hrs Laboratory Tests Test 11/21/18 19:30 11/22/18 05:56 Vancomycin Level Trough 12.4 White Blood Count 5.8 # Red Blood Count 3.34 L Hemoglobin 8.6 L Hematocrit 29.0 L Mean Corpuscular Volume 86.8 Mean Corpuscular Hemoglobin 25.7 L Mean Corpuscular Hemoglobin Concent 29.7 L Red Cell Distribution Width 16.8 H Platelet Count 195 Mean Platelet Volume 10.1 Immature Granulocytes % 0.300 Neutrophils % 72.3 Lymphocytes % 13.6 L Monocytes % 12.0 H Eosinophils % 1.5 Basophils % 0.3 Nucleated Red Blood Cells % 0.0 Immature Granulocytes # 0.020 Neutrophils # 4.2 Lymphocytes # 0.8 Monocytes # 0.7 Eosinophils # 0.1 Basophils # 0.0 Nucleated Red Blood Cells # 0.0 Sodium Level 139 Potassium Level 3.6 Chloride Level 103 Carbon Dioxide Level 31 Anion Gap 5 Blood Urea Nitrogen 7 Creatinine 0.72 Est Glomerular Filtrat Rate mL/min > 60 Glucose Level 125 Calcium Level 8.7 Random Tobramycin Level 4.1 Medications Medication Current Medications Amlodipine Besylate (Norvasc) 10 mg DAILY PO Last administered on 11/22/18 09:16; Admin Dose 10 MG; Start 11/21/18 at 09:00 Ascorbic Acid (Vitamin C) 250 mg DAILY PO Last administered on 11/22/18 09:16; Admin Dose 250 MG; Start 11/21/18 at 09:00 Enoxaparin Sodium (Lovenox) 40 mg DAILY SC Last administered on 11/22/18 09:20; Admin Dose 40 MG; Start 11/21/18 at 09:00 Ferrous Sulfate (Ferrous Sulfate (Ec)) 325 mg BID PO Last administered on 11/22/18 09:16; Admin Dose 325 MG; Start 11/20/18 at 21:00 Lisinopril (Zestril) 20 mg DAILY PO Last administered on 11/22/18 09:14; Admin Dose 20 MG; Start 11/21/18 at 09:00 Multivitamins/ Minerals (Theragran-M) 1 tab DAILY PO Last administered on 11/22/18 09:16; Admin Dose 1 TAB; Start 11/21/18 at 09:00 Zinc Sulfate (Zinc Sulfate) 220 mg DAILY PO Last administered on 11/22/18 09:15; Admin Dose 220 MG; Start 11/21/18 at 09:00 IV Flush (NS 3 ml) 3 ml PER PROTOCOL IV ; Start 11/20/18 at 14:30 Ondansetron HCl (Zofran Inj) 4 mg Q6H PRN IV NAUSEA/VOMITING; Start 11/20/18 at 14:30 Acetaminophen (Tylenol Tab) 650 mg Q6H PRN PO .PAIN 1-3 OR TEMP; Start 11/20/18 at 14:30 Acetaminophen/ Hydrocodone Bitart ([place] (10/325)) 1 tab Q6H PRN PO NEEDED Last administered on 11/22/18at 09:12; Admin Dose 1 TAB; Start 11/20/18 at 20:00 Dextrose/Sodium Chloride 1,000 ml @ 80 mls/hr [id number] IV Last administered on 11/22/18at 05:54; Admin Dose 80 MLS/HR; Start 11/20/18 at 15:00 Pantoprazole (Protonix Tab) 40 mg DAILY@06 PO Last administered on 11/22/18at 05:54; Admin Dose 40 MG; Start 11/21/18 at 06:00 Clonidine (Catapres) 0.1 mg TID PRN PO sbp>160; Start 11/21/18 at 10:30 Tramadol HCl (Ultram) 50 mg Q6H PRN PO MODERATE PAIN LEVEL 4-6; Start 11/21/18 at 10:30 Albuterol/ Ipratropium (Duoneb) 3 ml Q4H RESP THERAPY HHN Last administered on 11/22/18at 08:01; Admin Dose 3 ML; Start 11/21/18 at 17:00 Albuterol/ Ipratropium (Duoneb) 3 ml Q2H RESP THERAPY PRN HHN sob; Start 11/21/18 at 14:30 Tobramycin (Tobramycin Iv Per Pharmacy) TOBRAMYCIN PER PHARMACY NOTE XX ; Start 11/21/18 at 16:30 Tobramycin 360 mg/ Dextrose 109 ml @ 109 mls/hr Q36H IVPB Last administered on 11/21/18at 20:35; Admin Dose 109 MLS/HR; Start 11/21/18 at 20:00 MALICK CABA NP Nov 22, 2018 10:49
--- NOTE | 2018-11-22 10:57 | DS ---
Date/Time of Note Date/Time of Note DATE: 11/22/18 TIME: 10:56 Discharge Summary Admission/Discharge Info Admit Date/Time Nov 20, 2018 at 07:57 Discharge Date/Time Discharge Diagnosis Recurrent pneumonia w/ possible aspiration Chronic respiratory failure-On T-piece. History of cystic lung disease, with chronic bloody cough History of COPD stable Anemia Dysphagia,non compliance w/ aspiration precaution and special diet regimen Consults dr.vadgama george Procedures 11/21/2018: Chest x-ray: Mild increase in asymmetric right mid and basilar lung patchy opacities compared to 11/20/2018. Findings can be secondary to asymmetric pulmonary edema, infection or aspiration. Clinical correlation is advised. Persistent elevation of the right hemidiaphragm with volume loss in the right lung. 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 Tracheostomy in situ. Mild chronic fracture deformities of the left lateral ribs. Hx of Present Illness This is a 68-year-old male who lives in a correction, who is also known to hospitalist team with frequent multiple admission for pneumonia, chronic respiratory failure with tracheostomy, cystic lung disease with chronic hemoptysis, COPD, anemia, dysphagia with history of G-tube removal, now being transferred from correction with cough and shortness of breath. Patient has struck and on T-piece, able to answer questions with mild words. He denied chest pain, palpitation, nausea, vomiting, abdominal pain, loss of conscious, dizziness, diarrhea, fever, chills, or other constitutional symptoms. Labs showed white count 12,400, hemoglobin 10, hematocrit 33.5, blood glucose 47. UA negative. Chest x-ray with no congestive heart failure. There is small acute basilar infiltrate and tiny right pleural effusion. Hospital Course 67 yo M w/cystic lung dx,chronic resp fx w/Trach,recent HAP transferred from SNF for SOB/Cough... Patient's chest x-ray with no further worsening of underlying disease. He was continued on [id number] breathing treatments. He was given antibiotics empirically. Patient was continued on home medication for other comorbidities. Patient was seen by speech therapist and recommended mechanical soft nectar thi ck liquid with moist ground textures with no straws. Recommended to crush all medications with applesauce. Patient with no leukocytosis or fever. Patient with no respiratory distress. He is tolerating current diet. At this time, no further inpatient work-up needed and since patient refused correction, he can be discharged back to the assisted living place with caregiver assistance where he came from with special emphasized on his diet restrictions.As per pulmonary,sputum pseudomonas from previous hospitala admission is likely colonized and doesnot need Tobramycin to be continued. He was given 7 days Augmentin for recurrent aspiration pneumonitis. Approximately 60 m spent on coordinating the discharge on this patient. Patient was seen in collaboration with [facility] Active Scripts Amoxicillin/Potassium Clav (Amox-Clav 875-125 mg Tablet) 875-125 mg Tab, 1 TAB PO BID for 7 Days, #14 TAB Prov:MALICK CABA V. [employer] INSURANCE CODER 11/22/18 Zinc Sulfate* (Zinc Sulfate*) 220 Mg Cap, 220 MG PO DAILY for 30 Days, CAP Prov:CABAMALICK V. MEDICAL INSURANCE CODER 09/16/18 Enoxaparin Sodium* (Enoxaparin Sodium*) 40 Mg/0.4 Ml Syringe, 40 MG SC DAILY for 30 Days Prov:MALICK CABA V. [employer] INSURANCE CODER 09/16/18 Ferrous Sulfate* (Ferrous Sulfate*) 325 Mg Tabec, 325 MG PO BID, #60 TAB Prov:CABAMELISSAA V. MEDICAL INSURANCE CODER 09/16/18 Multivits,Ca,Minerals/Iron/FA (Thera M Plus Tablet) 1 Each Tablet, 1 TAB PO DAILY for 30 Days, TAB Prov:CABAMELISSAA V. MEDICAL INSURANCE CODER 09/16/18 Ascorbic Acid (Vitamin C) 250 Mg Tab, 250 MG PO DAILY for 30 Days, TAB Prov:CABAMALICK V. [employer] INSURANCE CODER 09/16/18 Clonidine Hcl* (Clonidine Hcl*) 0.1 Mg Tab, 0.1 MG GTB TID for 30 Days, TAB Prov:MALICK CABA V. [employer] INSURANCE CODER 09/16/18 Lisinopril* (Lisinopril*) 20 Mg Tablet, 20 MG PO DAILY for 30 Days, #30 TAB Prov:FRANKO SAUCEDA MD 08/19/18 Amlodipine Besylate* (Amlodipine Besylate*) 10 Mg Tablet, 10 MG PO DAILY for 30 Days, #30 TAB Prov:FRANKO SAUCEDA MD 08/19/18 Ipratropium-Albuterol (Ipratropium-Albuterol) 0.5-3 Mg/3 Ml Ampul.neb, 3 ML HHN Q6H RESP THERAPY for 30 Days, #120 DOSE Prov:FRANKO SAUCEDA MD 08/19/18 Reported Medications Pantoprazole* (Pantoprazole*) 40 Mg Tablet.dr, 40 MG GTB AC BREAKFAST, TAB 07/17/18 Alprazolam* (Xanax*) 2 Mg Tablet, 2 MG GTB Q8H PRN for ANXIETY, TAB 07/17/18 Hydrocodone/Acetaminophen ([place] 10-325 Tablet) 1 Each Tablet, 1 EACH GTB Q6H PRN for NEEDED, TAB 07/17/18 Follow-up Plan 1.YOU HAVE RECEIVED A MEDICAL TREATMENT AT [facility] AND YOUR CONDITION IS STABLE AND CAN BE FOLLOWED UP OUTPATIENT. FURTHER FOLLOW-UPS CAN WAIT UNTIL YOU ARE SEEN IN YOUR DOCTORS OFFICE WITHIN THE NEXT 1-2 DAYS. IT IS YOUR RESPONSIBILITY TO MAKE AN APPOINTMENT FOR FOLOW-UP CARE. IF YOU HAVE A PRIMARY DOCTOR --you should call your primary doctor in 1-2 days and schedule an appointment IF YOU DO NOT HAVE A PRIMARY DOCTOR YOU CAN CALL OUR PHYSICIAN REFERRAL HOTLINE AT IF YOU CAN NOT AFFORD TO SEE A PHYSICIAN YOU CAN CHOSE FROM THE FOLLOWING [facility] CLINICS [facility] [address] [facility]. [facility] [address] [facility] [facility] [address] [facility] [address] [facility] [facility] [address] [facility]. [facility]. [address]. Call [phone] or go to the nearest emergency room if experiencing loss of consciousness, dizziness, chest pain, shortness of breath, vomiting/abdominal pain, speech difficulties, motor weakness or any unusual symptoms. DIET: Please follow instructions provided by your provider and your speech therapy regarding your diet restrictions. You were recommended to continue a mechanical soft nectar nectar thick liquid with the following special instructions:Ground textures/moist!!!!! No straws!! Crushed medication with apple sauce. Primary Care Provider Not On Staff Doctor Pending Labs Laboratory Tests Test 11/21/18 19:30 11/22/18 05:56 Vancomycin Level Trough 12.4 ug/ml (10.0-20.0) White Blood Count 5.8 10^3/ul (4.8-10.8) Red Blood Count 3.34 10^6/ul (4.70-6.10) Hemoglobin 8.6 g/dl (14.0-18.0) Hematocrit 29.0 % (42.0-52.0) Mean Corpuscular Volume 86.8 fl (82.0-101.0) Mean Corpuscular Hemoglobin 25.7 pg (29.0-33.0) Mean Corpuscular 29.7 g/dl (32.0-37.0) Hemoglobin Concent Red Cell Distribution Width 16.8 % (11.5-14.5) Platelet Count 195 10^3/UL (140-415) Mean Platelet Volume 10.1 fl (7.4-10.4) Immature Granulocytes % 0.300 % (0.001-0.429) Neutrophils % 72.3 % (39.0-77.0) Lymphocytes % 13.6 % (15.0-51.0) Monocytes % 12.0 % (0.0-11.0) Eosinophils % 1.5 % (0.0-7.0) Basophils % 0.3 % (0.0-2.0) Nucleated Red Blood Cells % 0.0 /100WBC (0.0-0.0) Immature Granulocytes # 0.020 10^3/ul (0.0-0.031) Neutrophils # 4.2 10^3/ul (1.6-7.5) Lymphocytes # 0.8 10^3/ul (0.8-2.9) Monocytes # 0.7 10^3/ul (0.3-0.9) Eosinophils # 0.1 10^3/ul (0.0-0.5) Basophils # 0.0 10^3/ul (0.0-0.1) Nucleated Red Blood Cells # 0.0 10^3/ul (0.0-0.0) Sodium Level 139 mmol/L (135-144) Potassium Level 3.6 mmol/L (3.5-5.1) Chloride Level 103 mmol/L (97-110) Carbon Dioxide Level 31 mmol/L (21-31) Anion Gap 5 (5-13) Blood Urea Nitrogen 7 mg/dl (7-20) Creatinine 0.72 mg/dl (0.61-1.24) Est Glomerular Filtrat > 60 mL/min (>60) Rate mL/min Glucose Level 125 mg/dl (70-220) Calcium Level 8.7 mg/dl (8.4-10.2) Random Tobramycin Level 4.1 ug/ml MALICK CABA NP Nov 22, 2018 10:57
--- NOTE | 2018-11-22 11:04 | CONS ---
Consultation Date/Type/Reason Admit Date/Time Nov 20, 2018 at 07:57 Initial Consult Date 11/20/18 Type of Consult Pulmonary Patient is a pleasant 68-year-old gentleman who was sent over to the hospital from detention with complaints of coughing as well as chest pain with coughing with mild shortness of breath. Patient also has a scant hemoptysis. He denies any fever, wheezing. By the time I saw him in the ER, patient was completely symptom-free. Past medical history; 1. History of chronic respiratory failure, maintained on T-piece. 2. History of severe emphysema with bronchiectasis and multiple episodes of hemoptysis. Status post extensive work-up in the past. 3. History of G-tube placement in the past with subsequent removal. 4. Multiple admissions at various hospitals for pneumonia and hemoptysis. Medications; reviewed. Allergies; none. Social history; patient has a history of smoking. Family history; noncontributory. Occupational history; patient is currently on disability. 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 Review of systems; denies any headache, seizures, dysphagia. Chest pain has resolved. Come to the very scant cough. Hemoptysis is improving. Denies any fever. Any abdominal pain, nausea, vomiting. Any melena hematochezia. Any edema. Any orthopnea. Any weight loss. General exam; elderly male, awake alert, currently in no distress. Date/Time of Note DATE: 11/22/18 TIME: 10:46 24 HR Interval Summary Free Text/Dictation Patient's condition is stable. Remains completely awake and alert. Complains of mild chronic cough without any hemoptysis. General exam; elderly male, awake alert, currently in no distress. HEENT exam; supple neck, patient is edentulous. Tracheostomy in place. Attached to T-piece. No neck masses. Chest exam; diminished but clear breath sounds. S1-S2 audible, no murmurs. Regular rhythm. Abdomen exam; soft, nontender. No organomegaly. There is a well-healed epigastric scar. Extremity exam; no peripheral edema. YARD ASSISTANT exam; no focal deficit. Assessment and recommendations; 1. Patient with with a history of chronic respiratory failure maintained on T- piece admitted for nonspecific chest pain from bouts of coughing with interval improvement. 2. Pseudomonas aeruginosa isolated from sputum during last admission was likely is colonization of the airway. Patient is afebrile with a fairly clear chest x- ray except for chronic right lower lobe changes. 3. History of hypertension. 4. History of recurrent hemoptysis due to underlying severe bronchiectasis. Consider discharge off antibiotics back to detention. Exam/Review of Systems Exam Vitals Vital Signs Date Temp Pulse Resp B/P (MAP) Pulse Ox O2 O2 Flow FiO2 Time Delivery Rate 11/22/18 74 20 100 Aerosol 5.0 28 08:01 11/22/18 97.6 130/63 07:17 (85) Intake and Output 11/21/18 11/21/18 11/22/18 1515:00 23:00 07:00 IntakeIntake Total 50 ml 819 ml OutputOutput Total 200 ml 1100 ml 750 ml BalanceBalance -150 ml -281 ml -750 ml Results Result Diagram: 11/22/18 0556 11/22/18 0556 Results 24hrs Laboratory Tests Test 11/21/18 19:30 11/22/18 05:56 Vancomycin Level Trough 12.4 White Blood Count 5.8 # Red Blood Count 3.34 L Hemoglobin 8.6 L Hematocrit 29.0 L Mean Corpuscular Volume 86.8 Mean Corpuscular Hemoglobin 25.7 L Mean Corpuscular Hemoglobin Concent 29.7 L Red Cell Distribution Width 16.8 H Platelet Count 195 Mean Platelet Volume 10.1 Immature Granulocytes % 0.300 Neutrophils % 72.3 Lymphocytes % 13.6 L Monocytes % 12.0 H Eosinophils % 1.5 Basophils % 0.3 Nucleated Red Blood Cells % 0.0 Immature Granulocytes # 0.020 Neutrophils # 4.2 Lymphocytes # 0.8 Monocytes # 0.7 Eosinophils # 0.1 Basophils # 0.0 Nucleated Red Blood Cells # 0.0 Sodium Level 139 Potassium Level 3.6 Chloride Level 103 Carbon Dioxide Level 31 Anion Gap 5 Blood Urea Nitrogen 7 Creatinine 0.72 Est Glomerular Filtrat Rate mL/min > 60 Glucose Level 125 Calcium Level 8.7 Random Tobramycin Level 4.1 Medications Medication Current Medications Amlodipine Besylate (Norvasc) 10 mg DAILY PO Last administered on 11/22/18at 09:16; Admin Dose 10 MG; Start 11/21/18 at 09:00 Ascorbic Acid (Vitamin C) 250 mg DAILY PO Last administered on 11/22/18at 09:16; Admin Dose 250 MG; Start 11/21/18 at 09:00 Enoxaparin Sodium (Lovenox) 40 mg DAILY SC Last administered on 11/22/18 09:20; Admin Dose 40 MG; Start 11/21/18 at 09:00 Ferrous Sulfate (Ferrous Sulfate (Ec)) 325 mg BID PO Last administered on 11/22/18 09:16; Admin Dose 325 MG; Start 11/20/18 at 21:00 Lisinopril (Zestril) 20 mg DAILY PO Last administered on 11/22/18at 09:14; Admin Dose 20 MG; Start 11/21/18 at 09:00 Multivitamins/ Minerals (Theragran-M) 1 tab DAILY PO Last administered on 11/22/18 09:16; Admin Dose 1 TAB; Start 11/21/18 at 09:00 Zinc Sulfate (Zinc Sulfate) 220 mg DAILY PO Last administered on 11/22/18 09:15; Admin Dose 220 MG; Start 11/21/18 at 09:00 IV Flush (NS 3 ml) 3 ml PER PROTOCOL IV ; Start 11/20/18 at 14:30 Ondansetron HCl (Zofran Inj) 4 mg Q6H PRN IV NAUSEA/VOMITING; Start 11/20/18 at 14:30 Acetaminophen (Tylenol Tab) 650 mg Q6H PRN PO .PAIN 1-3 OR TEMP; Start 11/20/18 at 14:30 Acetaminophen/ Hydrocodone Bitart ([place] (10/325)) 1 tab Q6H PRN PO NEEDED Last administered on 11/22/18at 09:12; Admin Dose 1 TAB; Start 11/20/18 at 20:00 Dextrose/Sodium Chloride 1,000 ml @ 80 mls/hr [id number] IV Last administered on 11/22/18at 05:54; Admin Dose 80 MLS/HR; Start 11/20/18 at 15:00 Pantoprazole (Protonix Tab) 40 mg DAILY@06 PO Last administered on 11/22/18at 05:54; Admin Dose 40 MG; Start 11/21/18 at 06:00 Clonidine (Catapres) 0.1 mg TID PRN PO sbp>160; Start 11/21/18 at 10:30 Tramadol HCl (Ultram) 50 mg Q6H PRN PO MODERATE PAIN LEVEL 4-6; Start 11/21/18 at 10:30 Albuterol/ Ipratropium (Duoneb) 3 ml Q4H RESP THERAPY HHN Last administered on 11/22/18at 08:01; Admin Dose 3 ML; Start 11/21/18 at 17:00 Albuterol/ Ipratropium (Duoneb) 3 ml Q2H RESP THERAPY PRN HHN sob; Start 11/21/18 at 14:30 Tobramycin (Tobramycin Iv Per Pharmacy) TOBRAMYCIN PER PHARMACY NOTE XX ; Start 11/21/18 at 16:30 Tobramycin 360 mg/ Dextrose 109 ml @ 109 mls/hr Q36H IVPB Last administered on 11/21/18at 20:35; Admin Dose 109 MLS/HR; Start 11/21/18 at 20:00 CRISTINA MORRIS Nov 22, 2018 11:03
--- NOTE | 2018-11-22 15:11 | CONS ---
Assessment/Plan Assessment/Plan Hospital Course (Demo Recall) ID PROGRESS NOTE CURRENT ABX: DAY # 3 =+ Tobra IV s/p >Vanco IV + Cefepime 24H INTERVAL SUMMARY * CHRONIC DEBILITY DUE TO ADVANCED EMPHYSEMA w/Recurrent ASP SYNDROME * Chronic Trach -- multiple admissions to various [facility] hospitals for recurrent COPD exacerbation and silent ASP PNA * Acute on chronic hypoxic resp failure w/severe bullous disease * Low grade temps on admission resolved, WBC elevated on admission -- now resolved DIAGNOSTIC IMAGING * 11/21/18 CXR: Mild increase in asymmetric right mid and basilar lung patchy opacities compared to 11/20/2018. Findings can be secondary to asymmetric pulmonary edema, infection or aspiration. Clinical correlation is advised.Pers istent elevation of the right hemidiaphragm with volume loss in the right lung.Multiple chronic right rib fractures with intercostal osseous bridging.Tracheostomy in situ. Mild chronic fracture deformities of the left lateral ribs. MICRO * 11/20/18 Urine Cx: URINE CULTURE Final Organism 1 MIXED GRAM NEG & POS ORGANISMS COLONY COUNT 20,000 - 30,000 CFU/ml * 11/20/18 BCX (-) * 10/20/18 RESP CX (+) RESPIRATORY CULTURE Final Organism 1 PROTEUS MIRABILIS QUANTITY SCANT GROWTH Organism 2 PSEUDOMONAS AERUGINOSA QUANTITY 1+ P. MIRAB P.AERUG P.AERUG M.I.C. RX M.I.C. RX M.I.C. RX --------- --- --------- --- --------- --- AMIKACIN 4 S AMPICILLIN >=32 R AZTREONAM I CEFAZOLIN I CEFEPIME 16 I CEFOTAXIME S CEFTAZIDIME 8 S CIPROFLOXACIN >=4 R >=4 R GENTAMICIN <=1 S 4 S LEVOFLOXACIN >=8 R >=8 R MEROPENEM 0.19 S TOBRAMYCIN <=1 S <=1 S TRIMETHOPRIM/SULFAMETHOXAZOLE >=320 R PIPERACILLIN/TAZOBACTAM S * 10/20/18 BCX (+) 1/2 bottles Organism 1 CORYNEBACTERIUM SPECIES * 10/22/18 BCx (-) 24H PHYSICAL EXAMINATION: GENERAL: VSS, NAD HEENT: AT, NC, NECK: Supple, CHEST: Rise symmetrical HEART: Pulse RRR ABDOMEN: EXTREMITIES: Warm, dry SKIN: No rash, no diaphoresis ID ASSESSMENT 67 yo M admit with: 1. SIRS vs early sepsis w/fevers, leukocytosis, tachycardia, SOB on admission * BCx (-) * Early UTI possible 11/20/18 Urine Cx: URINE CULTURE Final Organism 1 MIXED GRAM NEG & POS ORGANISMS COLONY COUNT 20,000 - 30,000 CFU/ml 2. Acute on chronic respiratory failure 3. Aspiration pneumonitis suspected without full blown PNA * Recurrent silent aspiration see barium swallow results PRIOR ADMISSION 4. Advanced COPD emphysema w/bullous lung disease 5. Long-standing history of intermittent hemoptysis likely from underlying bronchiectasis w/chronic coughing * (-)work up for MTB prior admission 6. Anemia 7. Cachexia, chronic debility, bedbound status INVASIVES: Trach, Midline ABX ALLERGY: KNDA CURRENT ABX: Day #3 Tobra IV s/p >Vanco IV + Cefepime ID RECOMMENDATIONS/PLAN: 1. Patient with recurrent back to back hospitalizations at various [facility] hospitals over many years for same issue * Chronic end-stage emphysema w/slow decline 2. Patient with recurrent aspiration PNA episodes -- anticipate total 5-7 days ABX, august TNS back to SNF Consultation Date/Type/Reason Admit Date/Time Nov 20, 2018 at 07:57 Initial Consult Date 11/20/18 Date/Time of Note DATE: 11/22/18 TIME: 15:03 Exam/Review of Systems Exam Vitals Vital Signs Date Temp Pulse Resp B/P (MAP) Pulse Ox O2 O2 Flow FiO2 Time Delivery Rate 11/22/18 97.7 77 20 144/76 100 Trach 15:02 (98) Collar 11/22/18 5.0 28 13:18 Intake and Output 11/21/18 11/21/18 11/22/18 1515:00 23:00 07:00 IntakeIntake Total 50 ml 819 ml OutputOutput Total 200 ml 1100 ml 750 ml BalanceBalance -150 ml -281 ml -750 ml Results Result Diagram: 11/22/18 0556 11/22/18 0556 Results 24hrs Laboratory Tests Test 11/21/18 19:30 11/22/18 05:56 Vancomycin Level Trough 12.4 White Blood Count 5.8 # Red Blood Count 3.34 L Hemoglobin 8.6 L Hematocrit 29.0 L Mean Corpuscular Volume 86.8 Mean Corpuscular Hemoglobin 25.7 L Mean Corpuscular Hemoglobin Concent 29.7 L Red Cell Distribution Width 16.8 H Platelet Count 195 Mean Platelet Volume 10.1 Immature Granulocytes % 0.300 Neutrophils % 72.3 Lymphocytes % 13.6 L Monocytes % 12.0 H Eosinophils % 1.5 Basophils % 0.3 Nucleated Red Blood Cells % 0.0 Immature Granulocytes # 0.020 Neutrophils # 4.2 Lymphocytes # 0.8 Monocytes # 0.7 Eosinophils # 0.1 Basophils # 0.0 Nucleated Red Blood Cells # 0.0 Sodium Level 139 Potassium Level 3.6 Chloride Level 103 Carbon Dioxide Level 31 Anion Gap 5 Blood Urea Nitrogen 7 Creatinine 0.72 Est Glomerular Filtrat Rate mL/min > 60 Glucose Level 125 Calcium Level 8.7 Random Tobramycin Level 4.1 Medications Medication Current Medications Amlodipine Besylate (Norvasc) 10 mg DAILY PO Last administered on 11/22/18 09:16; Admin Dose 10 MG; Start 11/21/18 at 09:00 Ascorbic Acid (Vitamin C) 250 mg DAILY PO Last administered on 11/22/18 09:16; Admin Dose 250 MG; Start 11/21/18 at 09:00 Enoxaparin Sodium (Lovenox) 40 mg DAILY SC Last administered on 11/22/18 09:20; Admin Dose 40 MG; Start 11/21/18 at 09:00 Ferrous Sulfate (Ferrous Sulfate (Ec)) 325 mg BID PO Last administered on 11/22/18 09:16; Admin Dose 325 MG; Start 11/20/18 at 21:00 Lisinopril (Zestril) 20 mg DAILY PO Last administered on 11/22/18 09:14; Admin Dose 20 MG; Start 11/21/18 at 09:00 Multivitamins/ Minerals (Theragran-M) 1 tab DAILY PO Last administered on 8/3/19at 09:16; Admin Dose 1 TAB; Start 11/21/18 at 09:00 Zinc Sulfate (Zinc Sulfate) 220 mg DAILY PO Last administered on 11/22/18at 09:15; Admin Dose 220 MG; Start 11/21/18 at 09:00 IV Flush (NS 3 ml) 3 ml PER PROTOCOL IV ; Start 11/20/18 at 14:30 Ondansetron HCl (Zofran Inj) 4 mg Q6H PRN IV NAUSEA/VOMITING; Start 11/20/18 at 14:30 Acetaminophen (Tylenol Tab) 650 mg Q6H PRN PO .PAIN 1-3 OR TEMP; Start 11/20/18 at 14:30 Acetaminophen/ Hydrocodone Bitart ([place] (10)) 1 tab Q6H PRN PO NEEDED Last administered on 11/22/18at 09:12; Admin Dose 1 TAB; Start 11/20/18 at 20:00 Dextrose/Sodium Chloride 1,000 ml @ 80 mls/hr [id number] IV Last administered on 11/22/18at 05:54; Admin Dose 80 MLS/HR; Start 11/20/18 at 15:00 Pantoprazole (Protonix Tab) 40 mg DAILY@06 PO Last administered on 11/22/18at 05:54; Admin Dose 40 MG; Start 11/21/18 at 06:00 Clonidine (Catapres) 0.1 mg TID PRN PO sbp>160; Start 11/21/18 at 10:30 Tramadol HCl (Ultram) 50 mg Q6H PRN PO MODERATE PAIN LEVEL 4-6; Start 11/21/18 at 10:30 Albuterol/ Ipratropium (Duoneb) 3 ml Q4H RESP THERAPY HHN Last administered on 11/22/18at 13:18; Admin Dose 3 ML; Start 11/21/18 at 17:00 Albuterol/ Ipratropium (Duoneb) 3 ml Q2H RESP THERAPY PRN HHN sob; Start 11/21/18 at 14:30 Tobramycin (Tobramycin Iv Per Pharmacy) TOBRAMYCIN PER PHARMACY NOTE XX ; Start 11/21/18 at 16:30 Tobramycin 360 mg/ Dextrose 109 ml @ 109 mls/hr Q36H IVPB Last administered on 11/21/18at 20:35; Admin Dose 109 MLS/HR; Start 11/21/18 at 20:00 OJ ROMEO NP Nov 22, 2018 15:11
[2018-11-23] MEDS: DIPHENHYDRAMINE 25 MG CAP PO PRN ×3 (00:16→14:16)
[2018-11-23] MEDS: ALBUTEROL/IPRATROPIUM (NEB) 3 ML AMP HHN SCH ×4 (01:51→13:45)
[2018-11-23 04:13] VITALS: BP 144/58; PULSE 87; RESP 19
[2018-11-23] MEDS: HYDROCODONE/APAP (10/325) TAB PO PRN ×2 (06:11→12:31)
[2018-11-23] MEDS: PANTOPRAZOLE (EC) 40 MG TAB PO SCH (06:11)
[2018-11-23] MEDS: DEXTROSE 5%-0.45% NACL 1,000 ML IV SCH (06:14)
[2018-11-23 07:03] VITALS: BP 147/78; PULSE 97; RESP 20
[2018-11-23] MEDS: TOBRAMYCIN IVPB SCH (08:16)
[2018-11-23] MEDS: DEXTROSE 5% IVPB SCH (08:16)
--- NOTE | 2018-11-23 08:58 | DS ---
Date/Time of Note Date/Time of Note DATE: 11/23/18 TIME: 08:57 Discharge Summary Admission/Discharge Info Admit Date/Time Nov 20, 2018 at 07:57 Discharge Date/Time Discharge Diagnosis Possible recurrent aspiration pneumonitis Chronic respiratory failure-On T-piece. History of cystic lung disease, with chronic bloody cough History of COPD stable Anemia Dysphagia,non compliance w/ aspiration precaution and special diet regimen Consults DR.Cadgama DR.Dreyer Ramirez of Present Illness This is a 68-year-old male who lives in a skilled nursing, who is also known to hospitalist team with frequent multiple admission for pneumonia, chronic respiratory failure with tracheostomy, cystic lung disease with chronic hemoptysis, COPD, anemia, dysphagia with history of G-tube removal, now being transferred from skilled nursing with cough and shortness of breath. Patient has struck and on T-piece, able to answer questions with mild words. He denied chest pain, palpitation, nausea, vomiting, abdominal pain, loss of conscious, dizziness, diarrhea, fever, chills, or other constitutional symptoms. Labs showed white count 12,400, hemoglobin 10, hematocrit 33.5, blood glucose 47. UA negative. Chest x-ray with no congestive heart failure. There is small acute basilar infiltrate and tiny right pleural effusion. Hospital Course 67 yo M w/cystic lung dx,chronic resp fx w/Trach,recent HAP transferred from SNF for SOB/Cough... Patient's chest x-ray with no further worsening of underlying disease. He was continued on [id number] breathing treatments. He was given antibiotics empirically. Patient was continued on home medication for other comorbidities. Patient was seen by speech therapist and recommended mechanical soft nectar th ick liquid with moist ground textures with no straws. Recommended to crush all medications with applesauce. Patient with no leukocytosis or fever. Patient with no respiratory distress. He is tolerating current diet. At this time, no further inpatient work-up needed and since patient refused skilled nursing, he can be discharged back to the assisted living place with caregiver assistance where he came from with special emphasized on his diet restrictions.As per pulmonary,sputum pseudomonas from previous hospital admission is likely colonized and does not need Tobramycin to be continued. He was given 7 days Augmentin for recurrent aspiration pneumonitis (d/w ID MARIA ELENA Barrera). Approximately 60 m spent on coordinating the discharge on this patient. Patient was seen in collaboration with [facility] Amoxicillin/Potassium Clav (Amox-Clav 875-125 mg Tablet) 875-125 mg Tab, 1 TAB PO BID for 7 Days, #14 TAB Prov:MALICK CABA NP 11/22/18 Zinc Sulfate* (Zinc Sulfate*) 220 Mg Cap, 220 MG PO DAILY for 30 Days, CAP Prov:MALICK CABA V. CRIMINAL PROFILER 09/16/18 Enoxaparin Sodium* (Enoxaparin Sodium*) 40 Mg/0.4 Ml Syringe, 40 MG SC DAILY for 30 Days Prov:MALICK CABA V. CRIMINAL PROFILER 09/16/18 Ferrous Sulfate* (Ferrous Sulfate*) 325 Mg Tabec, 325 MG PO BID, #60 TAB Prov:MALICK CABA V. CRIMINAL PROFILER 09/16/18 Multivits,Ca,Minerals/Iron/FA (Thera M Plus Tablet) 1 Each Tablet, 1 TAB PO DAILY for 30 Days, TAB Prov:MALICK CABA NP 09/16/18 Ascorbic Acid (Vitamin C) 250 Mg Tab, 250 MG PO DAILY for 30 Days, TAB Prov:MALICK CABA V. CRIMINAL PROFILER 09/16/18 Clonidine Hcl* (Clonidine Hcl*) 0.1 Mg Tab, 0.1 MG GTB TID for 30 Days, TAB Prov:MALICK CABA NP 09/16/18 Lisinopril* (Lisinopril*) 20 Mg Tablet, 20 MG PO DAILY for 30 Days, #30 TAB Prov:FRANKO SAUCEDA MD 08/19/18 Amlodipine Besylate* (Amlodipine Besylate*) 10 Mg Tablet, 10 MG PO DAILY for 30 Days, #30 TAB Prov:FRANKO SAUCEDA MD 08/19/18 Ipratropium-Albuterol (Ipratropium-Albuterol) 0.5-3 Mg/3 Ml Ampul.neb, 3 ML HHN Q6H RESP THERAPY for 30 Days, #120 DOSE Prov:FRANKO SAUCEDA MD 08/19/18 Reported Medications Pantoprazole* (Pantoprazole*) 40 Mg Tablet., 40 MG GTB AC BREAKFAST, TAB 07/17/18 Alprazolam* (Xanax*) 2 Mg Tablet, 2 MG GTB Q8H PRN for ANXIETY, TAB 07/17/18 Hydrocodone/Acetaminophen ([place] 10-325 Tablet) 1 Each Tablet, 1 EACH GTB Q6H PRN for NEEDED, TAB 07/17/18 Follow-up Plan 1.YOU HAVE RECEIVED A MEDICAL TREATMENT AT [facility] AND YOUR CONDITION IS STABLE AND CAN BE FOLLOWED UP OUTPATIENT. FURTHER FOLLOW-UPS CAN WAIT UNTIL YOU ARE SEEN IN YOUR DOCTORS OFFICE WITHIN THE NEXT 1-2 DAYS. IT IS YOUR RESPONSIBILITY TO MAKE AN APPOINTMENT FOR FOLOW-UP CARE. IF YOU HAVE A PRIMARY DOCTOR --you should call your primary doctor in 1-2 days and schedule an appointment IF YOU DO NOT HAVE A PRIMARY DOCTOR YOU CAN CALL OUR PHYSICIAN REFERRAL HOTLINE AT IF YOU CAN NOT AFFORD TO SEE A PHYSICIAN YOU CAN CHOSE FROM THE FOLLOWING [facility] CL[facility] [address] [facility]. [facility] [address] [facility] [address] [facility] [address] [facility] [address] [facility]. [facility]. [address]. Call 911 or go to the nearest emergency room if experiencing loss of consciousness, dizziness, chest pain, shortness of breath, vomiting/abdominal pain, speech difficulties, motor weakness or any unusual symptoms. DIET: Please follow instructions provided by your provider and your speech therapy regarding your diet restrictions. You were recommended to continue a mechanical soft nectar nectar thick liquid with the following special instructions:Ground textures/moist!!!!! No straws!! Crushed medication with apple sauce. Primary Care Provider Not On Staff Doctor MALICK CABA NP Nov 23, 2018 08:58
[2018-11-23] MEDS: ASCORBIC ACID 250 MG TAB PO SCH (09:52)
[2018-11-23] MEDS: LISINOPRIL 20 MG TAB PO SCH (09:52)
[2018-11-23] MEDS: FERROUS SULFATE (EC) 325 MG TAB PO SCH (09:53)
[2018-11-23] MEDS: AMLODIPINE 10 MG TAB PO SCH (09:53)
[2018-11-23] MEDS: MULTIVITAMINS/MINERALS TAB PO SCH (09:53)
[2018-11-23] MEDS: ZINC SULFATE 220 MG CAP PO SCH (09:53)
[2018-11-23] MEDS: ENOXAPARIN 40 MG/0.4 ML SYG SC SCH (10:27)
[2018-11-23 11:25] VITALS: BP 133/63; PULSE 87; RESP 20
[2018-11-23 14:54] VITALS: BP 144/80; PULSE 107; RESP 20
--- NOTE | 2018-11-23 15:47 | CONS ---
Consult Date/Type/Reason Admit Date/Time Nov 20, 2018 at 07:57 Initial Consult Date 11/20/18 Date/Time of Note DATE: 11/23/18 TIME: 15:46 Subjective No events overnight. On TC. Objective Vitals Vital Signs Date Temp Pulse Resp B/P (MAP) Pulse Ox O2 O2 Flow FiO2 Time Delivery Rate 11/23/18 98.4 107 20 144/80 100 Trach 14:54 (101) Collar 11/23/18 5.0 28 13:45 Intake and Output 11/22/18 11/22/18 11/23/18 1515:00 23:00 07:00 IntakeIntake Total 840 ml 240 ml 1250 ml OutputOutput Total 1000 ml 700 ml 300 ml BalanceBalance -160 ml -460 ml 950 ml Exam HEENT: Neck supple; no JVD; no LAD; + trach site clean CVS: RRR, S1 and S2 CHEST: Clear ABD: Soft, NT, + BS EXT: No c/c/e Results/Medications Result Diagram: 11/22/18 0556 11/22/18 0556 Home Meds Active Scripts Amoxicillin/Potassium Clav (Amox-Clav 875-125 mg Tablet) 875-125 mg Tab, 1 TAB PO BID for 7 Days, #14 TAB Prov:CABA,MALICK V. ENGLISH LANGUAGE LEARNER TEACHER 11/22/18 Zinc Sulfate* (Zinc Sulfate*) 220 Mg Cap, 220 MG PO DAILY for 30 Days, CAP Prov:CABA,MALICK V. ENGLISH LANGUAGE LEARNER TEACHER 09/16/18 Enoxaparin Sodium* (Enoxaparin Sodium*) 40 Mg/0.4 Ml Syringe, 40 MG SC DAILY for 30 Days Prov:CABA,MALICK V. ENGLISH LANGUAGE LEARNER TEACHER 09/16/18 Ferrous Sulfate* (Ferrous Sulfate*) 325 Mg Tabec, 325 MG PO BID, #60 TAB Prov:CABA,MALICK V. ENGLISH LANGUAGE LEARNER TEACHER 09/16/18 Multivits,Ca,Minerals/Iron/FA (Thera M Plus Tablet) 1 Each Tablet, 1 TAB PO DAILY for 30 Days, TAB Prov:CABA,MALICK V. ENGLISH LANGUAGE LEARNER TEACHER 09/16/18 Ascorbic Acid (Vitamin C) 250 Mg Tab, 250 MG PO DAILY for 30 Days, TAB Prov:CABA,MALICK V. ENGLISH LANGUAGE LEARNER TEACHER 09/16/18 Clonidine Hcl* (Clonidine Hcl*) 0.1 Mg Tab, 0.1 MG GTB TID for 30 Days, TAB Prov:GERTRUDISMALICKTORRI Joyce NP 09/16/18 Lisinopril* (Lisinopril*) 20 Mg Tablet, 20 MG PO DAILY for 30 Days, #30 TAB Prov:FRANKO SAUCEDA MD 08/19/18 Amlodipine Besylate* (Amlodipine Besylate*) 10 Mg Tablet, 10 MG PO DAILY for 30 Days, #30 TAB Prov:FRANKO SAUCEDA MD 08/19/18 Ipratropium-Albuterol (Ipratropium-Albuterol) 0.5-3 Mg/3 Ml Ampul.neb, 3 ML HHN Q6H RESP THERAPY for 30 Days, #120 DOSE Prov:FRANKO SAUCEDA MD 08/19/18 Reported Medications Pantoprazole* (Pantoprazole*) 40 Mg Tablet.dr, 40 MG GTB AC BREAKFAST, TAB 07/17/18 Alprazolam* (Xanax*) 2 Mg Tablet, 2 MG GTB Q8H PRN for ANXIETY, TAB 07/17/18 Hydrocodone/Acetaminophen ([place] 10-325 Tablet) 1 Each Tablet, 1 EACH GTB Q6H PRN for NEEDED, TAB 07/17/18 Medications Current Medications Amlodipine Besylate (Norvasc) 10 mg DAILY PO Last administered on 11/23/18 09:5 3; Admin Dose 10 MG; Start 11/21/18 at 09:00 Ascorbic Acid (Vitamin C) 250 mg DAILY PO Last administered on 11/23/18 09:52; Admin Dose 250 MG; Start 11/21/18 at 09:00 Enoxaparin Sodium (Lovenox) 40 mg DAILY SC Last administered on 11/23/18 10:27; Admin Dose 40 MG; Start 11/21/18 at 09:00 Ferrous Sulfate (Ferrous Sulfate (Ec)) 325 mg BID PO Last administered on 11/23/18 09:53; Admin Dose 325 MG; Start 11/20/18 at 21:00 Lisinopril (Zestril) 20 mg DAILY PO Last administered on 11/23/18 09:52; Admin Dose 20 MG; Start 11/21/18 at 09:00 Multivitamins/ Minerals (Theragran-M) 1 tab DAILY PO Last administered on 8/4/19at 09:53; Admin Dose 1 TAB; Start 11/21/18 at 09:00 Zinc Sulfate (Zinc Sulfate) 220 mg DAILY PO Last administered on 11/23/18 09:53; Admin Dose 220 MG; Start 11/21/18 at 09:00 IV Flush (NS 3 ml) 3 ml PER PROTOCOL IV ; Start 11/20/18 at 14:30 Ondansetron HCl (Zofran Inj) 4 mg Q6H PRN IV NAUSEA/VOMITING; Start 11/20/18 at 14:30 Acetaminophen (Tylenol Tab) 650 mg Q6H PRN PO .PAIN 1-3 OR TEMP; Start 11/20/18 at 14:30 Acetaminophen/ Hydrocodone Bitart ([place] (10325)) 1 tab Q6H PRN PO NEEDED Last administered on 11/23/18at 12:31; Admin Dose 1 TAB; Start 11/20/18 at 20:00 Pantoprazole (Protonix Tab) 40 mg DAILY@06 PO Last administered on 11/23/18at 06:11; Admin Dose 40 MG; Start 11/21/18 at 06:00 Clonidine (Catapres) 0.1 mg TID PRN PO sbp>160; Start 11/21/18 at 10:30 Tramadol HCl (Ultram) 50 mg Q6H PRN PO MODERATE PAIN LEVEL 4-6; Start 11/21/18 at 10:30 Albuterol/ Ipratropium (Duoneb) 3 ml Q4H RESP THERAPY HHN Last administered on 11/23/18at 13:45; Admin Dose 3 ML; Start 11/21/18 at 17:00 Albuterol/ Ipratropium (Duoneb) 3 ml Q2H RESP THERAPY PRN HHN sob; Start 11/21/18 at 14:30 Tobramycin (Tobramycin Iv Per Pharmacy) TOBRAMYCIN PER PHARMACY NOTE XX ; Start 11/21/18 at 16:30 Tobramycin 360 mg/ Dextrose 109 ml @ 109 mls/hr Q36H IVPB Last administered on 11/23/18at 08:16; Admin Dose 109 MLS/HR; Start 11/21/18 at 20:00 Diphenhydramine HCl (Benadryl) 25 mg Q6H PRN PO ITCHING Last administered on 11/23/18at 14:16; Admin Dose 25 MG; Start 11/23/18 at 00:30 Miscellaneous Information (*Rx Drug Level Order Reminder*) TAMMI TR 1900 ONCE XX ; Start 11/24/18 at 19:00; Stop 11/24/18 at 19:01 Assessment/Plan Assessment/Plan (Daily) IMP: 1. Chronic lung disease with chronic hypercapnic/hypoxemic resp failure 2. Acute exacerbation of #1 3. 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 4. Failure to thrive. 5. Possible acute on chronic infection RECS: 1. Continue pulmonary toilet. 2. BDs 3. Aspiration precautions 4. Antibiotics per ID 5. DVT and GI prophylaxis. AZRA SALDANA MD Nov 23, 2018 15:47
== END 2018-11-23 15:50 | disposition home or self-care (01) | DRG 178 ==
LOC: E/R 05:48 → TEL 07:57
PROVIDERS: ADMIT Internal Medicine; ATTEND Internal Medicine
DX: J69.0 Pneumonitis due to inhalation of food and vomit (principal); J44.1 Chronic obstructive pulmonary disease with (acute) exacerbation; K92.0 Hematemesis; R64 Cachexia; J96.12 Chronic respiratory failure with hypercapnia; J96.11 Chronic respiratory failure with hypoxia; Z93.0 Tracheostomy status; R13.10 Dysphagia, unspecified; Z91.19 Patient's noncompliance with other medical treatment and regimen; J43.9 Emphysema, unspecified; J47.9 Bronchiectasis, uncomplicated; I10 Essential (primary) hypertension; Z93.1 Gastrostomy status; R07.89 Other chest pain; J98.4 Other disorders of lung; D64.9 Anemia, unspecified; Z68.20 Body mass index [BMI] 20.0-20.9, adult
CPT/HCPCS: 36415; 71045; 80048; 80053; 80200; 80202; 81003; 82962; 83605; 83735; 83880; 84100; 84484; 85025; 85610; 87086; 92610; 93005; 94640; 94664; 96374; 96375; J0692; J1650; J2270; J2405; J3260; J3370; J7030; J7042